=== PATIENT | female | born 1940 | race Caucasian/White ===

== ENCOUNTER 2016-08-09 18:21 | Inpatient (IN) | payer MEDICARE ==
[2016-08-09] MEDS ORDERED: methylPREDNISolone SOD SUCC* 125 MG 2 ML VIAL IV ONE (19:22)
[2016-08-09 19:30] LABS: Hematocrit 35 % (35-47); Hemoglobin 11.9 g/dl (12.0-16.0); Mean Corpuscular HGB Conc 34 g/dl (31-36); Mean Corpuscular Hemoglobin 41 pg (27-31); Mean Platelet Volume 10 um3 (7.4-10.4); Red Blood Count 2.88 10^6/ul (4.0-5.4); Red Cell Distribution Width 16 % (10.5-15); White Blood Count 8.4 10^3/ul (3.5-10.8)
[2016-08-09] MEDS ORDERED: Albuterol 2.5 MG/3 ML NEB.SOL* (0.083%) ONE (19:30)
[2016-08-09 19:31] LABS: Comments Flag Yes; Mean Corpuscular Volume 123 fL (80-97)
[2016-08-09] MEDS: Albuterol 2.5 MG/3 ML NEB.SOL* (0.083%) INH SCH ×2 (19:32→22:01)
[2016-08-09 19:42] LABS: Albumin 4.1 g/dL (3.2-5.2); BUN/Creatinine Ratio 15.2 (8-20); Calcium 9.5 mg/dL (8.6-10.3); EGFR African American 75.9 (>60); Globulin 2.9 g/dL (2-4); Total Bilirubin 0.7 mg/dL (0.2-1.0)
[2016-08-09 19:46] LABS: Troponin I 0.01 ng/mL (<0.04)
--- NOTE | 2016-08-09 20:23 | RAD ---
Indication: Shortness of breath, productive cough. Symptoms duration 3 days. History of COPD on home oxygen. Cardiac disease. Comparison: June 29, 2016 chest radiograph Technique: Upright AP 1957 hours Report: Elevated lung volumes and rarefaction of the upper lung zone markings. Mild patchy alveolar and interstitial consolidation at the RIGHT mid to lower lung zone and at the LEFT lung base suspicious for bronchopneumonia. No focal pulmonary lesion, pleural effusion, pneumothorax. Upper normal heart size accounting for elevated lung volumes. Unremarkable central pulmonary vasculature and mediastinal contours. IMPRESSION: Suggestion of mild bronchopneumonia superimposed on chronic obstructive pulmonary disease and emphysema.
[2016-08-09] MEDS ORDERED: Albuterol/Ipratropium NEB.SOL* Albuterol 2.5 MG/Ipratropium 0.5 MG 3 ML INH ONE (21:07)
[2016-08-09] MEDS ORDERED: cefTRIAXone(*) 1 GM in NS 0.9% 50 ML* 50 ML IVPB ONE (21:31)
[2016-08-09] MEDS ORDERED: DOXYcycline IV* 100 MG in NS 0.9% 250 ML* 250 ML IVPB ONE (21:32)
[2016-08-09] MEDS ORDERED: Docusate CAP* 100 MG PO PRN (22:52)
[2016-08-09] MEDS ORDERED: Albuterol/Ipratropium RESP(NF) MDI (Combivent Respimat) INH PRN (22:52)
[2016-08-09] MEDS ORDERED: Acetaminophen TAB* 325 MG PO PRN ×2 (22:52→22:57)
[2016-08-09] MEDS ORDERED: guaiFENesin ER TAB 600 MG PO PRN (22:52)
[2016-08-09] MEDS ORDERED: IPRATROPIUM BROMIDE NASAL PRN (22:52)
[2016-08-09] MEDS ORDERED: Benzonatate CAP* 100 MG PO PRN (22:57)
[2016-08-10] MEDS: Levofloxacin 500 MG IVPREMIX(* 500 MG/100 ML BAG IVPB SCH ×2 (01:59→22:48)
[2016-08-10] MEDS: methylPREDNISolone SOD SUCC* 40 MG/ML VIAL IV SCH ×3 (06:18→21:47)
[2016-08-10] MEDS: Levothyroxine TAB* 112 MCG TAB PO SCH (06:18)
[2016-08-10] MEDS: Atenolol TAB* 25 MG PO SCH (08:24)
[2016-08-10] MEDS: Aspirin EC Low Dose* 81 MG TAB.EC PO SCH (08:25)
[2016-08-10] MEDS: Cetirizine* 10 MG TAB PO SCH (08:25)
[2016-08-10] MEDS: Ascorbic Acid TAB* 500 MG PO SCH (08:26)
[2016-08-10] MEDS: Lisinopril TAB* 10 MG PO SCH (08:26)
[2016-08-10] MEDS: FLUoxetine CAP* 20 MG PO SCH (08:27)
[2016-08-10] MEDS: Calcium/Vitamin D TAB 250/125* TAB PO SCH (08:27)
[2016-08-10] MEDS: Cholecalciferol TAB* 1000 UNITS PO SCH (08:27)
[2016-08-10] MEDS: Rivaroxaban TAB(*) 20 MG TAB PO SCH (08:28)
[2016-08-10] MEDS: HydroxyUREA CAP* 500 MG CAP PO SCH (08:29)
[2016-08-10] MEDS: IRON POLYSACCHARIDE COMPLEX VI PO SCH (08:30)
[2016-08-10] MEDS: Mometasone/Formoter 200/5 MDI INH SCH ×2 (08:52→19:52)
--- NOTE | 2016-08-10 09:39 | HP ---
HISTORY AND PHYSICAL: DATE OF ADMISSION: 08/09/16 PRIMARY CARE PHYSICIAN: Kim Whitaker MD CHIEF COMPLAINT: Shortness of breath. HISTORY OF PRESENT ILLNESS: The patient is a 76-year-old woman who presents to [facility] with the chief complaint of shortness of breath that started a few days ago actually. She said that last morning she went to breakfast with her confucianist group, and then that evening went to dinner with her son. Then that Sunday night she went to a fish estevez but actually had broiled fish. She thinks that was a lot of activity for her and it tired her out. Each day, she felt a little worse and became increasingly short of breath. She had increased wheezing, increased cough productive of yellow sputum , but no blood in it. She had increased chest tightness. She used her inhalers more frequently, but it did not seem to help. She noticed increased weakness, fatigue, and a decreased appetite. She felt feverish, but that went away. In the ER, the patient was evaluated, found to have increased wheezing, but also likely bilateral pneumonia on chest x-ray. PAST MEDICAL HISTORY: The patient has a past medical history significant for COPD, thrombocytosis, anemia, hypothyroidism, hypertension, dyslipidemia, diverticulosis, history of pulmonary embolism, atrial fibrillation, and history of TIA. PAST SURGICAL HISTORY: Tubal ligation, cataract surgery, and tonsillectomy. MEDICATIONS: Current medications are as follows: 1. Hydroxyurea 1500 mg daily. 2. Symbicort 160/4.5 two puffs twice daily. 3. Ascorbic acid 100 mg daily. 4. Calcium carbonate/Vitamin D one tablet daily. 5. Ipratropium bromide two sprays nasally 3 times a day. 6. Furosemide 20 mg as directed. 7. Guaifenesin 600 mg twice daily. 8. Multivitamin one tablet daily. 9. Iron polysaccharide complex one capsule daily. 10. Vitamin B12 250 mcg every other day. 11. Docusate 200 mg twice daily as needed. 12. Tylenol 650 mg every 4 hours as needed. 13. Combivent one puff inhaled 3 times a day as needed. 14. Atorvastatin 10 mg at bedtime. 15. Fosamax 70 mg weekly. 16. Cholecalciferol 1000 units daily. 17. Omeprazole 30 mg daily. 18. Prednisone 2.5 mg daily. 19. Xarelto 20 mg daily. 20. Singulair 10 mg daily. 21. Anupama 180 mg daily. 22. Atenolol 12.5 mg daily. 23. Aspirin 81 mg daily. 24. Lisinopril 20 mg daily. 25. Fluoxetine 40 mg daily. 26. Synthroid 112 mcg daily. ALLERGIES: She has an allergy/adverse reaction to BIAXIN, AZITHROMYCIN, and NORVASC. FAMILY HISTORY: Mother had a history of ALL. Father had a CVA and coronary artery disease. SOCIAL HISTORY: Ex-tobacco, quit now 20 years ago. No alcohol. No recreational drug use. Surrogate decision maker is her son, Nic. REVIEW OF SYSTEMS: A 14-point review of systems was completed with the patient. All pertinent positives and negatives are in the history of present illness, otherwise it is negative. PHYSICAL EXAMINATION GENERAL: A very pleasant woman lying in bed, in no acute distress. VITAL SIGNS: Blood pressure 140/66, pulse oxygenation 94% on 3 L, heart rate 85 beats per minute, temperature 98.0 degrees. HEENT: Normocephalic, atraumatic. Pupils equal, round, and reactive to light. Moist mucous membranes. NECK: Supple. No JVD, bruits, palpable thyroid, or lymphadenopathy. CHEST: She has got bilateral diffuse wheezing and a very little air movement. CARDIOVASCULAR: S1, S2 appreciated. ABDOMEN: Positive bowel sounds in all 4 quadrants. Soft, nontender, nondistended. No hepatosplenomegaly. EXTREMITIES: No cyanosis, clubbing. +2 peripheral pulses bilaterally. NEURO: Alert and oriented x3. Moves all extremities. SKIN: No rashes or abnormalities. LABORATORY DATA/DIAGNOSTIC STUDIES: White count 8.4, hemoglobin 11.9, hematocrit 35, and platelets 404. Sodium 138, potassium 4.0, chloride 101, CO2 31, BUN 14, creatinine 0.92, glucose 134. Lactic acid 2.4. EKG shows normal sinus rhythm at a rate of 91 beats per minute, normal axis, nonspecific ST-T wave changes. Chest x-ray was interpreted by radiology as suggestion of mild block pneumonia superimposed on chronic obstructive pulmonary disease and emphysema. ASSESSMENT AND PLAN: 1. Pneumonia. Place patient on Levaquin 500 mg IV daily. 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 Tessalon Perles for cough. 2. COPD exacerbation. Solu-Medrol 40 IV q.8 hours. Respiratory-driven protocol. 3. History of PE and atrial fibrillation. Continue Xarelto. Her heart rate seems to be adequately controlled. 4. Hypothyroidism. Stable, continue Synthroid. 5. Dyslipidemia. Stable, continue statin. 6. FEN. Regular diet. 7. DVT prophylaxis. On Xarelto as noted. 8. The patient is a full code. TIME SPENT: Over 75 minutes were spent on this H and P, more than 40 minutes of which were spent in direct [id number] contact and counseling and coordination of care. CC: Kim Whitaker MD* [id number]/CPS #: [id number] MTDOrly
[2016-08-10 15:39] LABS: Urine Bilirubin Negative (Negative); Urine Glucose 1+(50 mg/dL) (Negative); Urine Nitrite Negative (Negative)
--- NOTE | 2016-08-10 16:46 | PN ---
Subjective Date of Service: 08/10/16 Interval History: This is a 76 yo female with COPD requiring 2L NC at baseline who presented with c/o SOB, weakness and fatigue for several days prior to admission. CXR suggested bilateral infiltrates and patient has subsequently been admitted with PNA and COPD exacerbation. She reports feeling much better today. She is still dyspneic returning from the bathroom and coughing occasionally. Afebrile overnight. She offers no new complaints. Objective Active Medications: Acetaminophen (Tylenol Tab*) 650 mg PO Q4H PRN PRN Reason: FEVER/PAIN Albuterol/Ipratropium (Combivent Respimat(Nf)) 1 puff INH TID PRN; Protocol PRN Reason: WHEEZING Ascorbic Acid (Vitamin C Tab*) 500 mg PO DAILY [facility] Last Admin: 08/10/16 08:26 Dose: 500 mg Aspirin (Aspirin Ec Low Dose*) 81 mg PO DAILY [facility] Last Admin: 08/10/16 08:25 Dose: 81 mg Atenolol (Tenormin Tab*) 12.5 mg PO DAILY [facility] Last Admin: 08/10/16 08:24 Dose: 12.5 mg Atorvastatin Calcium (Lipitor*) 10 mg PO BEDTIME [facility] Benzonatate (Tessalon Cap*) 200 mg PO TID PRN PRN Reason: COUGH Calcium/Vitamin D (Oscal D Tab 250/125*) 1 tab PO DAILY [facility] Last Admin: 08/10/16 08:27 Dose: 1 tab Cetirizine HCl (Zyrtec*) 10 mg PO DAILY [facility] PRN Reason: Protocol Last Admin: 08/10/16 08:25 Dose: 10 mg Cholecalciferol (Vitamin D Tab*) 1,000 units PO DAILY [facility] Last Admin: 08/10/16 08:27 Dose: 1,000 units Cyanocobalamin (Vitamin B12 Tab*) 250 mcg PO EVERY OTHER DAY [facility] Docusate Sodium (Colace Cap*) 100 mg PO BID PRN PRN Reason: CONSTIPATION Fluoxetine HCl (Prozac Cap*) 40 mg PO DAILY [facility] Last Admin: 08/10/16 08:27 Dose: 40 mg Guaifenesin (Mucinex*) 600 mg PO BID PRN PRN Reason: COUGH Hydroxyurea (Hydrea Cap*) 1,500 mg PO DAILY [facility] Last Admin: 08/10/16 08:29 Dose: 1,500 mg Levofloxacin/Dextrose (Levaquin 500 Mg Ivpremix(*)) 500 mg in 100 mls @ 100 mls /hr IVPB Q24H [facility] Last Admin: 08/10/16 01:59 Dose: 100 mls/hr Levothyroxine Sodium (Synthroid Tab*) 112 mcg PO 0600 [facility] Last Admin: 08/10/16 06:18 Dose: 112 mcg Lisinopril (Prinivil Tab*) 20 mg PO DAILY [facility] Last Admin: 08/10/16 08:26 Dose: 20 mg Methylprednisolone Sodium Succinate (Solu-Medrol*) 40 mg IV Q8H [facility] Last Admin: 08/10/16 14:23 Dose: 40 mg Mometasone Furoate/Formoterol Fumar (Dulera 200/5 Mdi*) 2 puff INH BID [facility] PRN Reason: Protocol Last Admin: 08/10/16 08:52 Dose: 2 puff Montelukast Sodium (Singulair Tab*) 10 mg PO BEDTIME [facility] Non-Formulary Medication (Ipratropium [place] (Nasal) [Ipratropium [place]]) 2 spray NASAL TID PRN PRN Reason: Allergy Symptoms Pto:(Iron Polysaccharide Complex-Vi [Poly- Iron 150 Forte 150- 25-1 Mg-Mcg-Mg 1 cap PO DAILY [facility] Last Admin: 08/10/16 08:30 Dose: Not Given Omeprazole 30mg 30 admin PO DAILY [facility] Last Admin: 08/10/16 08:30 Dose: Not Given Rivaroxaban (Xarelto (*)) 20 mg PO DAILY [facility] Last Admin: 08/10/16 08:28 Dose: 20 mg Vital Signs: Temp Pulse Resp BP Pulse Ox 97.3 F 79 18 152/78 96 08/10/16 11:05 08/10/16 15:40 08/10/16 15:40 08/10/16 08:19 08/10/16 15:40 Oxygen Devices in Use Now: Nasal Cannula Appearance: Well appearing, in NAD Neck: NL Appearance and Movements; NL JVP Respiratory: Symmetrical Chest Expansion and Respiratory Effort, - - reduced breath sounds diffusely and a few expiratory wheezes in anterior krueger Cardiovascular: RRR Abdominal: NL Sounds; No Tenderness; No Distention Extremities: No Edema Skin: No Rash or Ulcers Neurological: Alert and Oriented x 3 Result Diagrams: 08/09/16 18:50 08/09/16 18:50 Additional Lab and Data: . Assess/Plan/Problems-Billing Assessment: This is a 76 yo female with O2 dependent COPD, h/o PE and prior TIA as well as chronic anemia who presented with c/o SOB and malaise with bilateral infiltrates noted on CXR. - Patient Problems (1) Pneumonia Comment: Cont ceftriaxone and doxycycline Allergy to azithromycin (2) COPD (chronic obstructive pulmonary disease) Comment: With acute exacerbation Cont corticosteriods Will add Spiriva and cont LABA/ICS (3) Chronic respiratory failure Comment: Secondary to COPD O2 and steroid dependent (4) History of pulmonary embolus (PE) Comment: Anticoagulated with Xarelto (5) HTN (hypertension) Comment: Normotensive Cont atenolol (6) Hyperlipidemia Comment: Cont statin (7) Thrombocytosis Comment: Platelets normal at this time Cont hydroxyurea Status and Disposition: Patient requires continued hospital stay. Anticipate possible discharge tomorrow
[2016-08-10] MEDS ORDERED: Spiriva Inhaler DEVICE* 1 EACH DEVICE INH ONE (17:00)
[2016-08-10] MEDS: Tiotropium CAP.INH* CAP.INH/18 MCG INH SCH (19:30)
[2016-08-10] MEDS ORDERED: Atorvastatin* 10 MG TAB PO SCH (21:00)
[2016-08-10] MEDS ORDERED: Montelukast Sodium TAB* 10 MG PO SCH (21:00)
[2016-08-11] MEDS: Levothyroxine TAB* 112 MCG TAB PO SCH (06:03)
[2016-08-11] MEDS: methylPREDNISolone SOD SUCC* 40 MG/ML VIAL IV SCH (06:03)
[2016-08-11] MEDS: Tiotropium CAP.INH* CAP.INH/18 MCG INH SCH (08:41)
[2016-08-11] MEDS: Mometasone/Formoter 200/5 MDI INH SCH (08:42)
[2016-08-11] MEDS ORDERED: Cyanocobalamin TAB* 500 MCG PO SCH (09:00)
[2016-08-11] MEDS: FLUoxetine CAP* 20 MG PO SCH (09:07)
[2016-08-11] MEDS: Cholecalciferol TAB* 1000 UNITS PO SCH (09:07)
[2016-08-11] MEDS: Lisinopril TAB* 10 MG PO SCH (09:07)
[2016-08-11] MEDS: Rivaroxaban TAB(*) 20 MG TAB PO SCH (09:08)
[2016-08-11] MEDS: Cetirizine* 10 MG TAB PO SCH (09:08)
[2016-08-11] MEDS: Atenolol TAB* 25 MG PO SCH (09:08)
[2016-08-11] MEDS: Calcium/Vitamin D TAB 250/125* TAB PO SCH (09:08)
[2016-08-11] MEDS: IRON POLYSACCHARIDE COMPLEX VI PO SCH (09:09)
[2016-08-11] MEDS: HydroxyUREA CAP* 500 MG CAP PO SCH (09:09)
[2016-08-11] MEDS: Aspirin EC Low Dose* 81 MG TAB.EC PO SCH (09:09)
[2016-08-11] MEDS: Ascorbic Acid TAB* 500 MG PO SCH (09:09)
[2016-08-11 09:55] VITALS: BP 150/67
--- NOTE | 2016-08-11 21:37 | DS ---
DISCHARGE SUMMARY: DATE OF ADMISSION: 08/09/16 DATE OF DISCHARGE: 08/11/16 PRIMARY CARE PROVIDER: Kim Whitaker MD. DISCHARGING PROVIDER: MARRY Bergeron SUPERVISING PHYSICIAN: Santhosh Roberts MD.* (DICTATED BY MARRY BERGERON) PRIMARY DISCHARGE DIAGNOSES: 1. Community-acquired pneumonia. 2. Chronic obstructive pulmonary disease exacerbation. SECONDARY DISCHARGE DIAGNOSES: 1. Chronic respiratory failure secondary to chronic obstructive pulmonary disease - followed by Dr. Singh and is oxygen and steroid dependent. 2. History of pulmonary embolus, chronically anticoagulated with Xarelto. 3. Hypertension. 4. Hyperlipidemia. 5. Thrombocytosis, maintained on hydroxyurea. DISCHARGE MEDICATIONS: 1. Guaifenesin 600 mg p.o. b.i.d. as needed for cough. 2. Combivent 1 puff inhaled 3 times daily as needed. 3. Fosamax 70 mg p.o. weekly. 4. Vitamin C 500 mg p.o. daily. 5. Aspirin 81 mg p.o. daily. 6. Atenolol 12.5 mg p.o. daily. 7. Atorvastatin 10 mg p.o. at bedtime. 8. Symbicort 160/4.5 two puffs inhaled twice daily. 9. Calcium and vitamin D tablet 1 tablet p.o. daily. 10. Vitamin D3, 1000 units p.o. daily. 11. Vitamin B12, 250 mcg p.o. every other day. 12. Docusate 100 to 200 mg p.o. b.i.d. as needed for constipation. 13. Prozac 40 mg p.o. daily. 14. Fexofenadine 180 mg p.o. daily. 15. Lasix 20 mg p.o. Sunday, Sunday, Sunday. 16. Hydroxyurea 1500 mg p.o. daily. 17. Ipratropium nasal spray 0.03% 2 sprays in each nostril 3 times daily as needed. 18. Iron and polysaccharide complex 1 capsule p.o. daily. 19. Levaquin 500 mg p.o. daily x7 days. 20. Levothyroxine 112 mcg p.o. daily. 21. Lisinopril 20 mg p.o. daily. 22. Singulair 10 mg p.o. at bedtime. 23. Multivitamin 1 tablet p.o. daily. 24. Omeprazole 30 mg p.o. daily. 25. Xarelto 20 mg p.o. daily. 26. Spiriva 1 capsule inhaled daily. 27. Prednisone at a tapering dose with instructions to take 40 mg x3 days, followed by 20 mg x3 days, followed by 10 mg x3 days, followed by 5 mg x3 days and then to resume her typical dose of 2.5 mg daily. Medication changes: 1. Start Spiriva. 2. Levaquin x7 days. 3. Prednisone in a tapering dose as described above and then to resume her typical daily dose of 2.5 mg. HOSPITAL IMAGIN. Chest x-ray, 08/09/16, shows mild bronchopneumonia superimposed on COPD and emphysema in both lung bases. 2. EKG, 08/09/16, shows a sinus rhythm with no acute ischemic changes. HOSPITAL COURSE: This is a 76-year-old female with chronic respiratory failure secondary to COPD who is both steroid and oxygen dependent at baseline, who presented to the emergency department with complaints of shortness of breath for the last several days. The patient complained of associated weakness and fatigue. She had been afebrile at home. She had a productive cough. At the time of admission, initial labs were rather unremarkable. CBC was within normal limits. Comprehensive metabolic panel was unremarkable. Lactic acid was mildly elevated at 2.4. Initial troponin was negative and her urinalysis was unremarkable. Chest x- ray demonstrated bilateral infiltrate and the patient was subsequently admitted with pneumonia and COPD exacerbation. Baseline oxygen requirements are 2 L at rest and 3 L at activity. The patient did require additional supplemental oxygen at the time of admission, but at discharge has returned to her baseline requirements. The patient was treated with Levaquin as well as corticosteroids and noted significant improvement in her respiratory symptoms. Spiriva was also initiated during her hospital stay. At home, she was treated with Symbicort and p.r.n. Combivent. DISPOSITION: The patient is being discharged to home. Medication changes as outlined above. She requires Levaquin for an additional 7 days as well as slow prednisone taper as described above. Spiriva has been added as an additional maintenance inhaler for her. She has scheduled followup with Dr. Singh, her pumper hand for next month, which she is encouraged to keep and will require followup with her primary care provider next week in regards to this hospitalization. MARRY BERGERON CC: Kim Whitaker MD; Dr. Singh* [id number]/CPS #: [id number] MTDD
== END 2016-08-11 11:15 | disposition home or self-care (01) | DRG 190 ==
LOC: ED 18:21 → MED 23:10
PROVIDERS: ADMIT Internal Medicine; ATTEND Hospitalist
DX: J44.1 Chronic obstructive pulmonary disease with (acute) exacerbation (principal); J18.9 Pneumonia, unspecified organism; J96.10 Chronic respiratory failure, unspecified whether with hypoxia or hypercapnia; I48.91 Unspecified atrial fibrillation; Z99.81 Dependence on supplemental oxygen; I10 Essential (primary) hypertension; E78.5 Hyperlipidemia, unspecified; E03.9 Hypothyroidism, unspecified; D47.3 Essential (hemorrhagic) thrombocythemia; Z86.711 Personal history of pulmonary embolism; Z79.01 Long term (current) use of anticoagulants; Z79.1 Long term (current) use of non-steroidal anti-inflammatories (NSAID); Z79.891 Long term (current) use of opiate analgesic; Z79.52 Long term (current) use of systemic steroids; Z79.899 Other long term (current) drug therapy; Z79.82 Long term (current) use of aspirin; Z88.1 Allergy status to other antibiotic agents; Z91.09 Other allergy status, other than to drugs and biological substances; Z87.891 Personal history of nicotine dependence; Z86.73 Personal history of transient ischemic attack (TIA), and cerebral infarction without residual deficits
CPT/HCPCS: 36415; 71010; 80053; 81003; 83605; 84484; 85025; 87040; 87070; 87077; 87185; 87186; 87205; 87899; 93005; 94640; 94760; A9270-GY; J0696; J1956; J2920; J2930

== ENCOUNTER 2016-11-20 18:16 | Inpatient (IN) | payer MEDICARE ==
[2016-11-20] MEDS ORDERED: Albuterol/Ipratropium NEB.SOL* Albuterol 2.5 MG/Ipratropium 0.5 MG 3 ML INH ONE (18:31)
[2016-11-20] MEDS ORDERED: methylPREDNISolone 125 MG* 2 ML VIAL IV ONE (18:31)
[2016-11-20] MEDS ORDERED: NS 0.9% 1000 ML* 1,000 ML IV ONE (18:31)
[2016-11-20 18:58] LABS: Hematocrit 31 % (35-47); Hemoglobin 10.1 g/dl (12.0-16.0); Mean Corpuscular HGB Conc 33 g/dl (31-36); Mean Corpuscular Hemoglobin 42 pg (27-31); Mean Platelet Volume 9 um3 (7.4-10.4); Red Blood Count 2.45 10^6/ul (4.0-5.4); Red Cell Distribution Width 17 % (10.5-15); White Blood Count 8.1 10^3/ul (3.5-10.8)
[2016-11-20 18:59] LABS: Add Diff/Slide Review? Slide Review Added; Comments Flag Yes; Mean Corpuscular Volume 126 fL (80-97)
--- NOTE | 2016-11-20 19:08 | RAD ---
HISTORY: Shortness of breath, cough, pneumonia COMPARISONS: None VIEWS: 4: Frontal dual-energy and lateral views of the chest. FINDINGS: CARDIOMEDIASTINAL SILHOUETTE: The cardiomediastinal silhouette is normal. PRETTY: The pretty are normal. PLEURA: The costophrenic angles are sharp. No pleural abnormalities are noted. LUNG PARENCHYMA: There is hyperinflation with flattening of the diaphragm and expansion of the AP diameter of the chest. ABDOMEN: The upper abdomen is clear. There is no subphrenic gas. BONES AND SOFT TISSUES: No bone or soft tissue abnormalities are noted. OTHER: None. IMPRESSION: HYPERINFLATION, CONSISTENT WITH COPD. NO ACTIVE CARDIOPULMONARY DISEASE.
[2016-11-20 19:10] LABS: PCO2 Arterial 43 mmHg (35-45)
--- NOTE | 2016-11-20 19:17 | ED ---
Jordan Bates Soohyun, scribed for Kaz Quintanilla MD on 11/20/16 at 1839 . Progress - Progress Note Progress Note: This 76 y/o female presents to ED for 24 hours old SOB. Positive KAPLAN, orthopnea , and bilat ankle swelling. Pt is oxygen dependent at home. PMHx includes COPD, afib, asthma, and PE. Physical Exam - Summary Physical Exam Summary: Neck is supple with full range of motion and non-tender. There are no carotid bruits. There is no neck vein distension. Respiratory: Chest is non-tender. Decreased breath sound bilat. Cardiovascular: Heart is regular rate and rhythm. There is no murmur or rub auscultated. There is peripheral edema and pulses are symmetrical and equal. Triage Information Reviewed: Yes Vital Signs On Initial Exam: Initial Vitals BP 157/57 11/20/16 18:21 Vital Signs Reviewed: Yes Course/Dx - Diagnoses Provider Diagnoses: Dyspnea The documentation as recorded by the igoribJordan mcneal Soohyun accurately reflects the service I personally performed and the decisions made by , Kaz Quintanilla MD.
[2016-11-20 19:26] LABS: Macrocytosis 3+; Stomatocytes 1+
[2016-11-20 19:49] LABS: ALT 9 U/L (7-52); Albumin 3.6 g/dL (3.2-5.2); Alkaline Phosphatase 46 U/L (34-104); BUN/Creatinine Ratio 10.3 (8-20); Blood Urea Nitrogen 10 mg/dL (6-24); CO2 Carbon Dioxide 28 mmol/L (22-32); Calcium 9.4 mg/dL (8.6-10.3); Chloride 98 mmol/L (101-111); EGFR African American 71.4 (>60); EGFR Non-African American 55.5 (>60); Globulin 3.3 g/dL (2-4); Glucose 85 mg/dL (70-100); Sodium 135 mmol/L (133-145); Total Protein 6.9 g/dL (6.4-8.9)
[2016-11-20 19:52] LABS: Anion Gap 9 mmol/L (2-11)
[2016-11-20] MEDS ORDERED: Levofloxacin 750 MG IVPREMIX(* 750 MG/150 ML BAG IVPB ONE (20:16)
[2016-11-20] MEDS ORDERED: Potassium Chlor TAB* 20 MEQ TAB.ER PO ONE (21:05)
[2016-11-20 21:13] LABS: Magnesium 1.3 mg/dL (1.9-2.7)
[2016-11-20] MEDS ORDERED: Magnesium Sulfate 2 GM IV* 2 GM/50 ML BAG IVPB ONE (21:19)
--- NOTE | 2016-11-20 21:25 | ED ---
Pardeep Bates Benjamin, scribed for Eliane Kaufman MD on 11/20/16 at 2017 . Shortness of Breath - HPI Summary HPI Summary: 76yo female brought in via EMS from mild SOB that started since yesterday. Pt had cold like symptoms: cough and sneezing since . Pt denies any CP but reports some spasms on her left chest when coughing. Denies leg cramping. Pt was admitted for COPD at [facility] 1 month ago for SOB and diaphoresis. After negative echo and stress test, pt was r/oed CO and CVA. Pt also states that she is under a lot of stress lately as she recently experienced a family . Pt has Hx of PE. Pt states that her symptoms now feels like COPD exacerbation. On low dose prednisone and Xeralto. - History of Current Complaint Chief Complaint: EDShortnessOfBreath Time Seen by Provider: 11/20/16 19:16 Hx Obtained From: Patient Onset/Duration: Gradual Onset, Lasting Days - 1 day ago, Still Present Timing: Constant Current Severity: Mild Dyspnea At: Rest Aggrevating Factors: Nothing Alleviating Factors: Nothing Associated Signs & Symptoms: Cough (Nonproductive) - Allergy/Home Medications Allergies/Adverse Reactions: Allergies Allergy/AdvReac Type Severity Reaction Status Date / Time Clarithromycin [From Biaxin] Allergy Intermediate Hives Verified 11/20/16 18:54 Azithromycin [From Zithromax] Allergy Mild Diarrhea Verified 11/20/16 18:54 Amlodipine [From Norvasc] AdvReac Severe See Comment Verified 11/20/16 18:54 Home Medications: Home Medications Albuterol 2.5MG/3ML (0.083%)* [Ventolin 2.5 MG/3 ML NEB.GAVIN*] 2.5 mg INH Q6H PRN 11/20/16 [History Confirmed 11/20/16] Albuterol Sulfate [Proair Respiclick] 2 puff INH Q4HR PRN 11/20/16 [History Confirmed 11/20/16] Cholecalciferol TAB* [Vitamin D TAB*] 2,000 units PO EVERY OTHER DAY 11/20/16 [ History Confirmed 11/20/16] Cyanocobalamin TAB* [Vitamin B12 TAB*] 250 mcg PO EVERY OTHER DAY 11/20/16 [ History Confirmed 11/20/16] Docusate CAP* [Colace Cap*] 100 - 200 mg PO BID PRN 11/20/16 [History Confirmed 11/20/16] Fluticasone NASAL SPRAY 50MCG* [Flonase NASAL SPRAY 50MCG*] 2 spray BOTH NARES DAILY 11/20/16 [History Confirmed 11/20/16] Ipratropium 0.5MG/2.5ML NEB* [Atrovent 0.5 MG NEB.GAVIN*] 0.5 mg INH TID PRN 11/20 [History Confirmed 11/20/16] Iron Polysaccharide Complex- [Poly-Iron 150 Forte] 1 cap PO DAILY 11/20/16 [ History Confirmed 11/20/16] LORazepam TAB(*) [Ativan 0.5 MG TAB (*)] 0.25 - 0.5 mg PO BEDTIME PRN 11/20/16 [ History Confirmed 11/20/16] Lisinopril [Lisinopril 40 MG-] 40 mg PO DAILY 11/20/16 [History Confirmed ] Magnesium Oxide TAB* [MagOx 400 TAB*] 400 mg PO DAILY 11/20/16 [History Confirmed 11/20/16] Multivitamins/Minerals TAB* [Theragran/minerals TAB*] 1 tab PO DAILY 11/20/16 [ History Confirmed 11/20/16] Polyethylene Glycol-Propylene [Systane Ultra 0.4-0.3 %] 1 gavin BOTH EYES .BID- QID PRN 11/20/16 [History Confirmed 11/20/16] Rivaroxaban TAB(*) [Xarelto 20 mg] 20 mg PO DAILY 11/20/16 [History Confirmed ] Tiotropium CAP.INH* [Spiriva CAP.INH*] 1 cap INH DAILY PRN 11/20/16 [History Confirmed 11/20/16] guaiFENesin LIQ* [Robitussin*] 10 ml PO QID PRN 11/20/16 [History Confirmed ] predniSONE TAB* [Deltasone TAB*] 2.5 mg PO DAILY 11/20/16 [History Confirmed ] PMH/Surg Hx/FS Hx/Imm Hx Endocrine/Hematology History: Reports: Hx Anticoagulant Therapy - coumadin, Hx Blood Disorders, Hx Thyroid Disease - HYPOTHYROIDISM, Hx Anemia - PERNICIOUS ANEMIA, Other Endocrine/Hematological Disorders - 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 Denies: Hx Blood Transfusions, Hx Bone Marrow Disease, Hx Diabetes, Hx Systemic Lupus Erythematosus, Hx Unexplained Bleeding Cardiovascular History: Reports: Hx Hypercholesterolemia, Hx Hypertension, Other Cardiovascular Problems/Disorders - A FIB Denies: Hx Pacemaker/ICD Respiratory History: Reports: Hx Asthma, Hx Chronic Bronchitis, Hx Chronic Obstructive Pulmonary Disease (COPD) - ON HOME O2, Hx Pneumonia, Hx Pulmonary Embolism, Other Respiratory Problems/Disorders - PT STATES SHE HAS A HX OF A BLOOD CLOT GI History: Reports: Hx Gastroesophageal Reflux Disease, Other GI Disorders - gastroenteritis History: Denies: Hx Dialysis, Hx Renal Disease Musculoskeletal History: Reports: Hx Arthritis - OA, Other Musculoskeletal History - osteo-arthritis Sensory History: Reports: Hx Contacts or Glasses Denies: Hx Cataracts - bilaterally removed, Hx Hearing Aid Opthamlomology History: Reports: Hx Contacts or Glasses Denies: Hx Cataracts - bilaterally removed Neurological History: Denies: Hx Dementia, Hx Seizures Psychiatric History: Reports: Hx Depression, Other Psychiatric Issues/Disorders - takes prozac to deter from smoking Denies: Hx Panic Disorder, Hx Substance Abuse - Cancer History Cancer Type, Location and Year: arthritis Hx Chemotherapy: No Hx Radiation Therapy: No - Surgical History Surgery Procedure, Year, and Place: Tubal ligation, pt states 31 years ago. Oral surgery, pt states when she was a teenager. CATARACT SURGERY Hx Anesthesia Reactions: No - difficulty reversing or "waking up." - Immunization History Date of Tetanus Vaccine: Unk Date of Influenza Vaccine: Fall 2013 Infectious Disease History: No Infectious Disease History: Denies: Hx Clostridium Difficile, Hx Hepatitis, Hx Human Immunodeficiency Virus (HIV), Hx Shingles, Hx Tuberculosis, Traveled Outside the [place] in Last 30 Days - Family History Known Family History: Positive: Cardiac Disease, Hypertension, Diabetes - Social History Occupation: Retired Lives: Alone Alcohol Use: None Substance Use Type: Reports: None Smoking Status (MU): Former Smoker Type: Cigarettes Have You Smoked in the Last Year: No Review of Systems Constitutional: Negative Negative: Fever Eyes: Negative ENT: Negative Negative: Chest Pain Positive: Shortness Of Breath, Cough Gastrointestinal: Negative Negative: Abdominal Pain Genitourinary: Negative Musculoskeletal: Negative Skin: Negative Neurological: Negative Psychological: Normal All Other Systems Reviewed And Are Negative: Yes Physical Exam - Summary Physical Exam Summary: Neck is supple with full range of motion and non-tender. There are no carotid bruits. There is no neck vein distension. Respiratory: Chest is non-tender. Decreased breath sound bilat. Cardiovascular: Heart is regular rate and rhythm. There is no murmur or rub auscultated. There is peripheral edema and pulses are symmetrical and equal. Triage Information Reviewed: Yes Vital Signs On Initial Exam: Initial Vitals BP 157/57 11/20/16 18:21 Vital Signs Reviewed: Yes Appearance: Positive: Well-Appearing, No Pain Distress Skin: Positive: Warm, Skin Color Reflects Adequate Perfusion, Dry Head/Face: Positive: Normal Head/Face Inspection Eyes: Positive: EOMI, MARIO ENT: Positive: Pharynx normal, TMs normal Neck: Positive: Supple, Nontender Respiratory/Lung Sounds: Positive: Clear to Auscultation, Breath Sounds Present , Wheezes - expiratory, Other - tachypnic Cardiovascular: Positive: RRR. Negative: Murmur Abdomen Description: Positive: Nontender, Soft. Negative: No Organomegaly, Distended, Guarding Bowel Sounds: Positive: Present Musculoskeletal: Positive: Strength/ROM Intact Neurological: Positive: Sensory/Motor Intact, Alert, Oriented to Person Place, Time, CN Intact II-III Psychiatric: Positive: Affect/Mood Appropriate - [place] Coma Scale Coma Scale Total: 15 Diagnostics - Vital Signs Vital Signs Temp Pulse Resp BP Pulse Ox 11/20/16 19:07 66 16 156/53 100 11/20/16 19:05 98 F 65 16 157/57 100 11/20/16 19:02 67 17 98 11/20/16 18:30 67 17 96 11/20/16 18:23 15 11/20/16 18:21 157/57 - Laboratory Lab Results: Lab Results 11/20/16 11/20/16 11/20/16 Range/Units 18:40 18:40 18:40 WBC 8.1 (3.5-10.8) 10^3/ul RBC 2.45 L (4.0-5.4) 10^6/ul Hgb 10.1 L (12.0-16.0) g/dl Hct 31 L (35-47) % MCV 126 H (80-97) fL MCH 42 H (27-31) pg MCHC 33 (31-36) g/dl RDW 17 H (10.5-15) % Plt Count 602 H (150-450) 10^3/ul MPV 9 (7.4-10.4) um3 Neut % (Auto) 38.6 (38-83) % Lymph % (Auto) 54.2 H (25-47) % Bertie % (Auto) 5.8 (1-9) % Eos % (Auto) 0.4 (0-6) % Baso % (Auto) 1.0 (0-2) % Absolute Neuts (auto) 3.1 (1.5-7.7) 10^3/ul Absolute Lymphs (auto) 4.4 (1.0-4.8) 10^3/ul Absolute Monos (auto) 0.5 (0-0.8) 10^3/ul Absolute Eos (auto) 0 (0-0.6) 10^3/ul Absolute Basos (auto) 0.1 (0-0.2) 10^3/ul Absolute Nucleated RBC 0.01 10^3/ul Nucleated RBC % 0.1 Normal RBC Morphology Not Reportable Macrocytosis 3+ Stomatocytes 1+ INR (Anticoag Therapy) (0.89-1.11) Patient Temperature ABG pH (7.35-7.45) ABG pCO2 (35-45) mmHg ABG pO2 (80-100) mmHg ABG HCO3 (19-31) mmol/L ABG O2 Saturation (95-98) % ABG Base Excess (-2.0-2.0) Respiration Rate O2 Delivery Device Ventilator Type Vent Mode FiO2 Inspiratory Time PEEP Pressure Support Pressure Control EPAP IPAP BiPAP Sodium 135 (133-145) mmol/L Potassium TNP Chloride 98 L (101-111) mmol/L Carbon Dioxide 28 (22-32) mmol/L Anion Gap 9 (2-11) mmol/L BUN 10 (6-24) mg/dL Creatinine 0.97 H (0.51-0.95) mg/dL Est GFR ( Amer) 71.4 (>60) Est GFR (Non-Af Amer) 55.5 (>60) BUN/Creatinine Ratio 10.3 (8-20) Glucose 85 (70-100) mg/dL Lactic Acid 1.2 (0.5-2.0) mmol/L Calcium 9.4 (8.6-10.3) mg/dL Total Bilirubin 0.50 (0.2-1.0) mg/dL AST TNP ALT 9 (7-52) U/L Alkaline Phosphatase 46 (34-104) U/L Troponin I 0.00 (<0.04) ng/mL B-Natriuretic Peptide ( - 100) pg/mL Total Protein 6.9 (6.4-8.9) g/dL Albumin 3.6 (3.2-5.2) g/dL Globulin 3.3 (2-4) g/dL Albumin/Globulin Ratio 1.1 (1-3) 11/20/16 11/20/16 11/20/16 Range/Units 18:40 18:40 19:00 WBC (3.5-10.8) 10^3/ul RBC (4.0-5.4) 10^6/ul Hgb (12.0-16.0) g/dl Hct (35-47) % MCV (80-97) fL MCH (27-31) pg MCHC (31-36) g/dl RDW (10.5-15) % Plt Count (150-450) 10^3/ul MPV (7.4-10.4) um3 Neut % (Auto) (38-83) % Lymph % (Auto) (25-47) % Bertie % (Auto) (1-9) % Eos % (Auto) (0-6) % Baso % (Auto) (0-2) % Absolute Neuts (auto) (1.5-7.7) 10^3/ul Absolute Lymphs (auto) (1.0-4.8) 10^3/ul Absolute Monos (auto) (0-0.8) 10^3/ul Absolute Eos (auto) (0-0.6) 10^3/ul Absolute Basos (auto) (0-0.2) 10^3/ul Absolute Nucleated RBC 10^3/ul Nucleated RBC % Normal RBC Morphology Macrocytosis Stomatocytes INR (Anticoag Therapy) 1.14 H (0.89-1.11) Patient Temperature Not Reportable ABG pH 7.46 H (7.35-7.45) ABG pCO2 43 (35-45) mmHg ABG pO2 68 L (80-100) mmHg ABG HCO3 29.6 (19-31) mmol/L ABG O2 Saturation 96.7 (95-98) % ABG Base Excess 6.1 H (-2.0-2.0) Respiration Rate Not Reportable O2 Delivery Device Nc Ventilator Type Not Reportable Vent Mode Not Reportable FiO2 Not Reportable Inspiratory Time Not Reportable PEEP Not Reportable Pressure Support Not Reportable Pressure Control Not Reportable EPAP Not Reportable IPAP Not Reportable BiPAP Not Reportable Sodium (133-145) mmol/L Potassium Chloride (101-111) mmol/L Carbon Dioxide (22-32) mmol/L Anion Gap (2-11) mmol/L BUN (6-24) mg/dL Creatinine (0.51-0.95) mg/dL Est GFR ( Amer) (>60) Est GFR (Non-Af Amer) (>60) BUN/Creatinine Ratio (8-20) Glucose (70-100) mg/dL Lactic Acid (0.5-2.0) mmol/L Calcium (8.6-10.3) mg/dL Total Bilirubin (0.2-1.0) mg/dL AST ALT (7-52) U/L Alkaline Phosphatase (34-104) U/L Troponin I (<0.04) ng/mL B-Natriuretic Peptide 32 ( - 100) pg/mL Total Protein (6.4-8.9) g/dL Albumin (3.2-5.2) g/dL Globulin (2-4) g/dL Albumin/Globulin Ratio (1-3) Result Diagrams: 11/20/16 18:40 11/20/16 20:18 Lab Statement: Any lab studies that have been ordered have been reviewed, and results considered in the medical decision making process. - Radiology CXR Xray Interpretation: No Acute Changes - IMPRESSION: HYPERINFLATION, CONSISTENT WITH COPD. NO ACTIVE CARDIOPULMONARY DISEASE. Radiology Interpretation Completed By: Radiologist - EKG 1830. Cardiac Rate: NL - 71bpm EKG Rhythm: Sinus Rhythm - normal sinus rhythm ST Segment: Normal - no ST elevation Ectopy: PACs EKG Interpretation: No Q waves, no ST elevations. EKG Comparison: No Significant Change - same as previous EKG taken at 08/09/16 Re-Evaluation - Re-Evaluation First Eval Re-Evaluation Time: 20:15 - Discussed with pt the idea of doing a CTA vs d- dimer. Pt prefers to do d-dimer first since it feels closer to COPD exacerbation and since she is already on xeralto. Course/Dx - Course Course Of Treatment: 76 yo female with copd, afib, high platelets and a history of PE, on anticoagulation, with sob. Dicussed doing CTA vs. ddimer with family and ddimer was done and was neg, pt treated for copd exac feeling better in the dept but unable to ambulate o2 sats of 87% on her normal 2l so case discussed with Dr. Talbot. her hg is 10, normally 11 but she denies any dark tarry stools, she is remarkably hypokalemic and magnesemic and this may be adding to her weakness these are being repleted. - Diagnoses Provider Diagnoses: Dyspnea - Physician Notifications Discussed Care of Patient With: Humberto Talbot Time Discussed With Above Provider: 21:00 Discharge - Discharge Plan Condition: Stable Disposition: ADMITTED TO [facility] Referrals: Kim Whitaker MD [Primary Care Provider] - The documentation as recorded by the Pardeep mcclain Benjamin accurately reflects the service I personally performed and the decisions made by me, Eliane Kaufman MD.
--- NOTE | 2016-11-20 21:33 | HP ---
H&P (Free Text) History and Physical: PCP: Andrzej Elliott MD Date/Time of Evaluation: 11/20/2016 CC: SOB HPI: Mrs Keita is a 76YO female HX COPD for which she was last admitted in August 2016. She began getting SOB which gradually progressed and prevented her from going to caodaism on Sunday. She was seen by her PCP Sunday afternoon and referred to [facility] ED as it was felt she was too ill to be adequately managed in the office. In fact in the ED she appeared comfortable, but after nebulizations and IV methylprednisolone, her saO2 dropped into the mid -80s with heart rate escalating into the 130s with ambulation prompting this admission. Sputum is clear to whitish. She has had some subjective chills, but no fevers, sweats, chest pain, N/V, change in bowel/bladder, or other issue. Of note, she relates being under increased stress over the past month due to her 35YO son passing away due to post-operative complications of a total colectomy performed at [facility] for severe ulcerative colitis. PMedHx COPD pulmonary embolism AFIB TIA HTN HLD anemia thrombocytosis hypothyroidism Ambulatory Orders Nursing to reconcile. Atenolol TAB* [Tenormin TAB* 25 MG] 12.5 mg PO DAILY 05/14/12 Atorvastatin* [Lipitor 10 MG*] 10 mg PO BEDTIME 05/14/12 FLUoxetine CAP* [Prozac CAP*] 40 mg PO DAILY 05/14/12 Montelukast Sodium TAB* [Singulair 10 MG TAB*] 10 mg PO BEDTIME 05/14/12 Omeprazole CAP* [Prilosec CAP* 20 MG] 20 mg PO DAILY 05/14/12 Alendronate (NF) [Fosamax (NF)] 70 mg PO WEEKLY 09/07/14 Levothyroxine TAB* [Synthorid 112 MCG TAB*] 112 mcg PO DAILY 09/07/14 Albuterol/Ipratropium RESP(NF) [Combivent Respimat (NF)] 1 puff INH TID PRN Budesonide/Formote 160/4.5(NF) [Symbicort 160/4.5 (NF)] 2 puff INH BID 08/09/16 Calcium Carbonate-Vitamin D [Calcium + D3 600-200 mg-Unit] 1 tab PO DAILY Fexofenadine HCl [Allergy 24-Hr] 180 mg PO DAILY 08/09/16 Furosemide TAB* [Lasix TAB*] 20 mg PO MOWEFR 08/09/16 HydroxyUREA CAP* [Hydrea CAP*] 1,500 mg PO DAILY 08/09/16 Ipratropium [place] (Nasal) [Ipratropium [place]] 2 spray NASAL TID PRN Albuterol 2.5MG/3ML (0.083%)* [Ventolin 2.5 MG/3 ML NEB.GAVIN*] 2.5 mg INH Q6H PRN 11/20/16 Albuterol Sulfate [Proair Respiclick] 2 puff INH Q4HR PRN 11/20/16 Cholecalciferol TAB* [Vitamin D TAB*] 2,000 units PO EVERY OTHER DAY 11/20/16 Cyanocobalamin TAB* [Vitamin B12 TAB*] 250 mcg PO EVERY OTHER DAY 11/20/16 Docusate CAP* [Colace Cap*] 100 - 200 mg PO BID PRN 11/20/16 Fluticasone NASAL SPRAY 50MCG* [Flonase NASAL SPRAY 50MCG*] 2 spray BOTH NARES DAILY 11/20/16 Ipratropium 0.5MG/2.5ML NEB* [Atrovent 0.5 MG NEB.GAVIN*] 0.5 mg INH TID PRN 11/20 Iron Polysaccharide Complex- [Poly-Iron 150 Forte] 1 cap PO DAILY 11/20/16 LORazepam TAB(*) [Ativan 0.5 MG TAB (*)] 0.25 - 0.5 mg PO BEDTIME PRN 11/20/16 Lisinopril [Lisinopril 40 MG-] 40 mg PO DAILY 11/20/16 Magnesium Oxide TAB* [MagOx 400 TAB*] 400 mg PO DAILY 11/20/16 Multivitamins/Minerals TAB* [Theragran/minerals TAB*] 1 tab PO DAILY 11/20/16 Polyethylene Glycol-Propylene [Systane Ultra 0.4-0.3 %] 1 gavin BOTH EYES .BID- QID PRN 11/20/16 Rivaroxaban TAB(*) [Xarelto 20 mg] 20 mg PO DAILY 11/20/16 Tiotropium CAP.INH* [Spiriva CAP.INH*] 1 cap INH DAILY PRN 11/20/16 guaiFENesin LIQ* [Robitussin*] 10 ml PO QID PRN 11/20/16 predniSONE TAB* [Deltasone TAB*] 2.5 mg PO DAILY 11/20/16 Allergies Clarithromycin [From Biaxin] Allergy (Intermediate, Verified 11/20/16 18:54) Hives Azithromycin [From Zithromax] Allergy (Mild, Verified 11/20/16 18:54) Diarrhea Amlodipine [From Norvasc] Adverse Reaction (Severe, Verified 11/20/16 18:54) See Comment elevated liver enzymes PSurgHx cataract extraction tonsillectomy tubal ligation SocHx: quit smoking ~20years ago w/ , denies alcohol & recreational drugs; , lives alone; full code status FamHx: Mother: ALL; Father: CVA & CAD ROS: as above, otherwise reviewed and all were negative Constitutional: NAD, normally developed, overweight elderly white female vitals: Vital Signs Temp 36.6 C 11/20/16 19:05 Pulse 93 11/20/16 21:30 Resp 20 11/20/16 21:30 BP 137/48 11/20/16 21:30 Pulse Ox 95 11/20/16 21:30 Intake & Output 11/19/16 11/20/16 11/20/16 23:59 11:59 23:59 Weight 77.111 kg HEENM: atraumatic; sclera/conjunctiva: non-icteric/clear; hearing: clinically intact; oropharynx: clear, mucosa moist Neck: soft tissue: non-tender; thyroid: normal Pulmonary: diminished B w/o audible wheeze or rhonchi, fair aeration, no accessory muscle use CV: RR/RR, normal S1S2, no carotid bruit, no jugular venous distention, 2+ B DP/ PT, no edema Abdominal: soft, non-distended, non-tender, no rebound/guarding/rigidity, normoactive bowel sounds, no hepatosplenomegaly or masses, no costovertebral angle tenderness Musculoskeletal: general: grossly intact; gait: stable Integumental: normal appearance and texture of exposed skin Psychiatric orientation: AA&O to PPS affect: calm mood: pleasant eye contact: good content: reliable responses: timely insight: good Testing: Lab Results 11/20/16 11/20/16 11/20/16 Range/Units 18:40 18:40 18:40 WBC 8.1 (3.5-10.8) 10^3/ul RBC 2.45 L (4.0-5.4) 10^6/ul Hgb 10.1 L (12.0-16.0) g/dl Hct 31 L (35-47) % MCV 126 H (80-97) fL MCH 42 H (27-31) pg MCHC 33 (31-36) g/dl RDW 17 H (10.5-15) % Plt Count 602 H (150-450) 10^3/ul MPV 9 (7.4-10.4) um3 Neut % (Auto) 38.6 (38-83) % Lymph % (Auto) 54.2 H (25-47) % [place] % (Auto) 5.8 (1-9) % Eos % (Auto) 0.4 (0-6) % Baso % (Auto) 1.0 (0-2) % Absolute Neuts (auto) 3.1 (1.5-7.7) 10^3/ul Absolute Lymphs (auto) 4.4 (1.0-4.8) 10^3/ul Absolute Monos (auto) 0.5 (0-0.8) 10^3/ul Absolute Eos (auto) 0 (0-0.6) 10^3/ul Absolute Basos (auto) 0.1 (0-0.2) 10^3/ul Absolute Nucleated RBC 0.01 10^3/ul Nucleated RBC % 0.1 Normal RBC Morphology Not Reportable Macrocytosis 3+ Stomatocytes 1+ INR (Anticoag Therapy) (0.89-1.11) D-Dimer, Quantitative (Less Than 230) ng/mL Patient Temperature ABG pH (7.35-7.45) ABG pCO2 (35-45) mmHg ABG pO2 (80-100) mmHg ABG HCO3 (19-31) mmol/L ABG O2 Saturation (95-98) % ABG Base Excess (-2.0-2.0) Respiration Rate O2 Delivery Device Ventilator Type Vent Mode FiO2 Inspiratory Time PEEP Pressure Support Pressure Control EPAP IPAP BiPAP Sodium 135 (133-145) mmol/L Potassium TNP Chloride 98 L (101-111) mmol/L Carbon Dioxide 28 (22-32) mmol/L Anion Gap 9 (2-11) mmol/L BUN 10 (6-24) mg/dL Creatinine 0.97 H (0.51-0.95) mg/dL Est GFR ( Amer) 71.4 (>60) Est GFR (Non-Af Amer) 55.5 (>60) BUN/Creatinine Ratio 10.3 (8-20) Glucose 85 (70-100) mg/dL Lactic Acid 1.2 (0.5-2.0) mmol/L Calcium 9.4 (8.6-10.3) mg/dL Magnesium (1.9-2.7) mg/dL Total Bilirubin 0.50 (0.2-1.0) mg/dL AST TNP ALT 9 (7-52) U/L Alkaline Phosphatase 46 (34-104) U/L Troponin I 0.00 (<0.04) ng/mL B-Natriuretic Peptide ( - 100) pg/mL Total Protein 6.9 (6.4-8.9) g/dL Albumin 3.6 (3.2-5.2) g/dL Globulin 3.3 (2-4) g/dL Albumin/Globulin Ratio 1.1 (1-3) 11/20/16 11/20/16 11/20/16 Range/Units 18:40 18:40 19:00 WBC (3.5-10.8) 10^3/ul RBC (4.0-5.4) 10^6/ul Hgb (12.0-16.0) g/dl Hct (35-47) % MCV (80-97) fL MCH (27-31) pg MCHC (31-36) g/dl RDW (10.5-15) % Plt Count (150-450) 10^3/ul MPV (7.4-10.4) um3 Neut % (Auto) (38-83) % Lymph % (Auto) (25-47) % [place] % (Auto) (1-9) % Eos % (Auto) (0-6) % Baso % (Auto) (0-2) % Absolute Neuts (auto) (1.5-7.7) 10^3/ul Absolute Lymphs (auto) (1.0-4.8) 10^3/ul Absolute Monos (auto) (0-0.8) 10^3/ul Absolute Eos (auto) (0-0.6) 10^3/ul Absolute Basos (auto) (0-0.2) 10^3/ul Absolute Nucleated RBC 10^3/ul Nucleated RBC % Normal RBC Morphology Macrocytosis Stomatocytes INR (Anticoag Therapy) 1.14 H (0.89-1.11) D-Dimer, Quantitative < 200 (Less Than 230) ng/mL Patient Temperature Not Reportable ABG pH 7.46 H (7.35-7.45) ABG pCO2 43 (35-45) mmHg ABG pO2 68 L (80-100) mmHg ABG HCO3 29.6 (19-31) mmol/L ABG O2 Saturation 96.7 (95-98) % ABG Base Excess 6.1 H (-2.0-2.0) Respiration Rate Not Reportable O2 Delivery Device Nc Ventilator Type Not Reportable Vent Mode Not Reportable FiO2 Not Reportable Inspiratory Time Not Reportable PEEP Not Reportable Pressure Support Not Reportable Pressure Control Not Reportable EPAP Not Reportable IPAP Not Reportable BiPAP Not Reportable Sodium (133-145) mmol/L Potassium Chloride (101-111) mmol/L Carbon Dioxide (22-32) mmol/L Anion Gap (2-11) mmol/L BUN (6-24) mg/dL Creatinine (0.51-0.95) mg/dL Est GFR ( Amer) (>60) Est GFR (Non-Af Amer) (>60) BUN/Creatinine Ratio (8-20) Glucose (70-100) mg/dL Lactic Acid (0.5-2.0) mmol/L Calcium (8.6-10.3) mg/dL Magnesium (1.9-2.7) mg/dL Total Bilirubin (0.2-1.0) mg/dL AST ALT (7-52) U/L Alkaline Phosphatase (34-104) U/L Troponin I (<0.04) ng/mL B-Natriuretic Peptide 32 ( - 100) pg/mL Total Protein (6.4-8.9) g/dL Albumin (3.2-5.2) g/dL Globulin (2-4) g/dL Albumin/Globulin Ratio (1-3) 11/20/ Range/Units 20:18 WBC (3.5-10.8) 10^3/ul RBC (4.0-5.4) 10^6/ul Hgb (12.0-16.0) g/dl Hct (35-47) % MCV (80-97) fL MCH (27-31) pg MCHC (31-36) g/dl RDW (10.5-15) % Plt Count (150-450) 10^3/ul MPV (7.4-10.4) um3 Neut % (Auto) (38-83) % Lymph % (Auto) (25-47) % [place] % (Auto) (1-9) % Eos % (Auto) (0-6) % Baso % (Auto) (0-2) % Absolute Neuts (auto) (1.5-7.7) 10^3/ul Absolute Lymphs (auto) (1.0-4.8) 10^3/ul Absolute Monos (auto) (0-0.8) 10^3/ul Absolute Eos (auto) (0-0.6) 10^3/ul Absolute Basos (auto) (0-0.2) 10^3/ul Absolute Nucleated RBC 10^3/ul Nucleated RBC % Normal RBC Morphology Macrocytosis Stomatocytes INR (Anticoag Therapy) (0.89-1.11) D-Dimer, Quantitative (Less Than 230) ng/mL Patient Temperature ABG pH (7.35-7.45) ABG pCO2 (35-45) mmHg ABG pO2 (80-100) mmHg ABG HCO3 (19-31) mmol/L ABG O2 Saturation (95-98) % ABG Base Excess (-2.0-2.0) Respiration Rate O2 Delivery Device Ventilator Type Vent Mode FiO2 Inspiratory Time PEEP Pressure Support Pressure Control EPAP IPAP BiPAP Sodium (133-145) mmol/L Potassium 2.6 L* Chloride (101-111) mmol/L Carbon Dioxide (22-32) mmol/L Anion Gap (2-11) mmol/L BUN (6-24) mg/dL Creatinine (0.51-0.95) mg/dL Est GFR ( Amer) (>60) Est GFR (Non-Af Amer) (>60) BUN/Creatinine Ratio (8-20) Glucose (70-100) mg/dL Lactic Acid (0.5-2.0) mmol/L Calcium (8.6-10.3) mg/dL Magnesium 1.3 L (1.9-2.7) mg/dL Total Bilirubin (0.2-1.0) mg/dL AST 11 L ALT (7-52) U/L Alkaline Phosphatase (34-104) U/L Troponin I (<0.04) ng/mL B-Natriuretic Peptide ( - 100) pg/mL Total Protein (6.4-8.9) g/dL Albumin (3.2-5.2) g/dL Globulin (2-4) g/dL Albumin/Globulin Ratio (1-3) ECG, personally reviewed: NSR rate 71, no ischemia, occasional PACs CXR, personally reviewed: IMPRESSION: HYPERINFLATION, CONSISTENT WITH COPD. NO ACTIVE CARDIOPULMONARY DISEASE. Impression: 76F presenting with COPD exacerbation DIAGNOSIS & PLAN Primary COPD exacerbation : albuterol nebs : mometasone/formoterol : tiotropium : supplemental oxygen : incentive spirometry : supportive care hypoKalemia : replace & recheck Secondary HX pulmonary embolism : SCDs & continue rivaroxaban AFIB : review meds once reconciled TIA : review meds once reconciled HTN : review meds once reconciled HLD : review meds once reconciled hypothyroidism : review meds once reconciled Admission Rational: observation for COPD exacerbation DVTp: SCDs & rivaroxaban Code Status: full HCP: son, Chip
[2016-11-20] MEDS ORDERED: traMADol TAB* 50 MG PO PRN (21:53)
[2016-11-20] MEDS ORDERED: CMCS: Melatonin (NF) 3 MG TAB PO PRN (21:53)
[2016-11-20] MEDS ORDERED: Albuterol 2.5 MG/3 ML NEB.SOL* (0.083%) INH PRN (21:53)
[2016-11-20] MEDS ORDERED: Acetaminophen TAB* 325 MG PO PRN (21:53)
[2016-11-20] MEDS ORDERED: Ondansetron INJ* 2 MG/ML VIAL IV PRN (21:53)
[2016-11-21] MEDS: Albuterol 2.5 MG/3 ML NEB.SOL* (0.083%) INH SCH ×4 (01:21→19:45)
[2016-11-21] MEDS: methylPREDNISolone SOD 40 MG* 1 ML VIAL IV SCH ×3 (01:53→17:51)
[2016-11-21 05:06] LABS: BUN/Creatinine Ratio 11.7 (8-20); Calcium 9.2 mg/dL (8.6-10.3); EGFR African American 61.1 (>60); EGFR Non-African American 47.5 (>60); Potassium 4.2 mmol/L (3.5-5.0)
[2016-11-21] MEDS: Omeprazole CAP* 20 MG PO SCH (05:49)
[2016-11-21] MEDS ORDERED: Ipratropium 0.5MG/2.5ML NEB* 0.5 MG/2.5 ML NEB.SOLN INH PRN (07:27)
[2016-11-21] MEDS ORDERED: Albuterol HFA INHALER* 8 gm MDI INH PRN (07:27)
[2016-11-21] MEDS ORDERED: Albuterol 2.5 MG/3 ML NEB.SOL* (0.083%) INH PRN (07:27)
[2016-11-21] MEDS ORDERED: guaiFENesin LIQ* 100 MG/5 ML UDC PO PRN (07:27)
[2016-11-21] MEDS ORDERED: LORazepam TAB(*) 0.5 MG PO PRN (07:27)
[2016-11-21] MEDS ORDERED: POLYETHYLENE GLYCOL PROPYLENE BOTH EYES PRN (07:27)
[2016-11-21] MEDS ORDERED: MAGNESIUM SULFATE 2 GM IVPB ONE (07:33)
[2016-11-21 07:59] LABS: Magnesium 2.5 mg/dL (1.9-2.7)
[2016-11-21] MEDS: Tiotropium CAP.INH* CAP.INH/18 MCG INH SCH (08:26)
[2016-11-21] MEDS: Mometasone/Formoter 200/5 MDI INH SCH ×2 (08:26→19:48)
[2016-11-21] MEDS: DOXYcycline IV* 100 MG in NS 0.9% 250 ML* 250 ML IVPB SCH ×2 (08:33→20:57)
[2016-11-21] MEDS ORDERED: Spiriva Inhaler DEVICE* 1 EACH DEVICE INH ONE (09:00)
[2016-11-21] MEDS ORDERED: Docusate CAP* 100 MG PO SCH (09:00)
[2016-11-21] MEDS ORDERED: Atenolol TAB* 25 MG PO SCH (09:00)
[2016-11-21] MEDS ORDERED: Levothyroxine TAB* 112 MCG TAB PO SCH (09:00)
[2016-11-21] MEDS: Cyanocobalamin TAB* 500 MCG PO SCH (09:19)
[2016-11-21] MEDS: Calcium/Vitamin D TAB 250/125* TAB PO SCH (09:20)
[2016-11-21] MEDS: Magnesium Oxide TAB* 400 MG PO SCH (09:20)
[2016-11-21] MEDS: Cetirizine* 10 MG TAB PO SCH (09:20)
[2016-11-21] MEDS: Cholecalciferol TAB* 1000 UNITS PO SCH (09:20)
[2016-11-21] MEDS: Lisinopril TAB* 10 MG PO SCH (09:21)
[2016-11-21] MEDS: Rivaroxaban TAB(*) 20 MG TAB PO SCH (09:21)
[2016-11-21] MEDS: Docusate CAP* 100 MG PO PRN (09:21)
[2016-11-21] MEDS: FLUoxetine CAP* 20 MG PO SCH (09:22)
[2016-11-21] MEDS: Multivitamins/Minerals TAB PO SCH (09:22)
[2016-11-21] MEDS: IRON POLYSACCHARIDE COMPLEX VI PO SCH (09:23)
[2016-11-21] MEDS: Fluticasone NASAL SPRAY 50MCG* 16 gm SPRAY BTL BOTH NARES SCH (09:23)
[2016-11-21] MEDS: HydroxyUREA CAP* 500 MG CAP PO SCH (09:23)
--- NOTE | 2016-11-21 15:12 | PN ---
Subjective Date of Service: 11/21/16 Interval History: HOSPITALIST PROGRESS NOTE Patient seen and examined at bedside. She feels a little better today. Dyspnea still present, worse when she gets emotional talking about her son's passing. Still coughing, but not as frequent as before. Denies CP or palpitations. Family History: Unchanged from Admission Social History: Unchanged from Admission Past Medical History: Unchanged from Admission Objective Active Medications: Acetaminophen (Tylenol Tab*) 650 mg PO Q6H PRN PRN Reason: FEVER/PAIN Albuterol (Ventolin 2.5 Mg/3 Ml Neb.Teodoro*) 2.5 mg INH Q2H PRN PRN Reason: SOB/WHEEZING Albuterol (Ventolin 2.5 Mg/3 Ml Neb.Teodoro*) 2.5 mg INH [id number] AWAKE [facility] Last Admin: 11/21/16 13:24 Dose: 2.5 mg Albuterol (Ventolin Hfa Inhaler*) 2 puff INH Q4HR PRN PRN Reason: WHEEZING Atenolol (Tenormin Tab*) 12.5 mg PO DAILY [facility] Last Admin: 11/21/16 09:19 Dose: 12.5 mg Atorvastatin Calcium (Lipitor*) 10 mg PO BEDTIME [facility] Calcium/Vitamin D (Oscal D Tab 250/125*) 1 tab PO DAILY [facility] Last Admin: 11/21/16 09:20 Dose: 1 tab Cetirizine HCl (Zyrtec*) 10 mg PO DAILY [facility] PRN Reason: Protocol Last Admin: 11/21/16 09:20 Dose: 10 mg Cholecalciferol (Vitamin D Tab*) 2,000 units PO EVERY OTHER DAY [facility] Last Admin: 11/21/16 09:20 Dose: 2,000 units Cyanocobalamin (Vitamin B12 Tab*) 250 mcg PO EVERY OTHER DAY [facility] Last Admin: 11/21/16 09:19 Dose: 250 mcg Docusate Sodium (Colace Cap*) 100 mg PO BID PRN PRN Reason: CONSTIPATION Last Admin: 11/21/16 09:21 Dose: 100 mg Fluoxetine HCl (Prozac Cap*) 40 mg PO DAILY [facility] Last Admin: 11/21/16 09:22 Dose: 40 mg Fluticasone Propionate (Flonase Nasal [place] 50mcg*) 2 spray BOTH NARES DAILY [facility] Last Admin: 11/21/16 09:23 Dose: 2 spray Furosemide (Lasix Tab*) 20 mg PO MoWeFr@0900 [facility] Guaifenesin (Robitussin*) 10 ml PO QID PRN PRN Reason: COUGH Last Admin: 11/21/16 09:23 Dose: 10 ml Hydroxyurea (Hydrea Cap*) 1,500 mg PO DAILY [facility] Last Admin: 11/21/16 09:23 Dose: 1,500 mg Doxycycline Hyclate 100 mg/ (Sodium Chloride) 250 mls @ 250 mls/hr IVPB Q12H [facility] Last Admin: 11/21/16 08:33 Dose: 250 mls/hr Ipratropium [place] (Atrovent 0.5 Mg Neb.Teodoro*) 0.5 mg INH TID PRN PRN Reason: SOB/WHEEZING Levothyroxine Sodium (Synthroid Tab*) 112 mcg PO DAILY@0600 [facility] Lisinopril (Prinivil Tab*) 40 mg PO DAILY [facility] Last Admin: 11/21/16 09:21 Dose: 40 mg Lorazepam (Ativan Tab(*)) 0.25 mg PO BEDTIME PRN PRN Reason: ANXIETY Magnesium Oxide (Magox 400 Tab*) 400 mg PO DAILY [facility] Last Admin: 11/21/16 09:20 Dose: 400 mg Methylprednisolone Sodium Succinate (Solu-Medrol 40 Mg) 40 mg IV Q8H [facility] Last Admin: 11/21/16 10:10 Dose: 40 mg Mometasone Furoate/Formoterol Fumar (Dulera 200/5 Mdi*) 2 puff INH BID [facility] Last Admin: 11/21/16 08:26 Dose: 2 puff Montelukast Sodium (Singulair Tab*) 10 mg PO BEDTIME [facility] Multivitamins/Minerals (Theragran/Minerals Tab*) 1 tab PO DAILY [facility] Last Admin: 11/21/16 09:22 Dose: 1 tab (Polyethylene Glycol -Propylene [Systane Ultra 0.4-0.3 %] 1 Te[place]oro) 1 teodoro BOTH EYES .BID-QID PRN PRN Reason: DRY EYE (Iron Polysaccharide Complex-Vi [Poly- Iron 150 Forte 150- 25-1 Mg-Mcg-Mg 1 cap PO DAILY [facility] Last Admin: 11/21/16 09:23 Dose: Not Given Omeprazole (Prilosec Cap*) 20 mg PO DAILY@0600 [facility] Last Admin: 11/21/16 05:49 Dose: 20 mg Ondansetron HCl (Zofran Inj*) 4 mg IV Q6H PRN PRN Reason: NAUSEA Rivaroxaban (Xarelto (*)) 20 mg PO DAILY [facility] Last Admin: 11/21/16 09:21 Dose: 20 mg Tiotropium [place] (Spiriva Cap.Inh*) 1 cap INH DAILY [facility] Last Admin: 11/21/16 08:26 Dose: 1 cap.inh Vital Signs 11/21/16 11/21/16 11/21/16 01:25 03:30 07:40 Temperature 97.6 F 97.9 F Pulse Rate 95 100 Respiratory 17 18 Rate Blood Pressure 141/48 188/70 (mmHg) O2 Sat by Pulse 96 96 98 Oximetry Oxygen Devices in Use Now: Nasal Cannula Appearance: Pleasant elderly lady sitting up in bed in NAD. Eyes: No Scleral Icterus Ears/Nose/Mouth/Throat: Mucous Membranes Moist Neck: Trachea Midline Respiratory: Symmetrical Chest Expansion and Respiratory Effort, - - BS+ bilaterally with faint wheezing on the right Cardiovascular: RRR - Normal S1 and S2 Abdominal: NL Sounds; No Tenderness; No Distention Extremities: No Edema Neurological: Alert and Oriented x 3, NL Muscle Strength and Tone Lines/Tubes/Other Access: Clean, Dry and Intact Peripheral IV Nutrition: Taking PO's Result Diagrams: 11/20/16 18:40 11/21/16 04:36 Assess/Plan/Problems-Billing Assessment: Mrs. Keita is a 76yo F with PMH of COPD on home O2, PE, Afib, TIA, HTN, HLD, anemia/thombocytosis on hydroxyurea, hypothyroidism, who presented to ED with c/ o dyspnea, found to have COPD exacerbation secondary to bronchitis. - Patient Problems (1) COPD exacerbation Comment: - Secondary to bronchitis. - Continue bronchodilators, steroids, and add Doxycycline. (2) Chronic respiratory failure Comment: - Continue supplemental O2. (3) History of pulmonary embolus (PE) Comment: - Continue Rivaroxaban. (4) Atrial fibrillation Comment: - Patient is in NSR now. - Continue Atenolol and Rivaroxaban. (5) HTN (hypertension) Comment: - Continue atenolol and Lisinopril. - Monitor BP. (6) Thrombocytosis Comment: - Continue hydroxyurea. (7) DVT prophylaxis Comment: - SCD and Rivaroxaban. (8) Full code status Status and Disposition: Change to inpatient.
[2016-11-21] MEDS ORDERED: NS 0.9% 250 ML* 250 ML ONE (20:52)
[2016-11-21] MEDS: Atorvastatin* 10 MG TAB PO SCH (20:58)
[2016-11-21] MEDS: Montelukast Sodium TAB* 10 MG PO SCH (20:58)
[2016-11-22] MEDS: methylPREDNISolone SOD 40 MG* 1 ML VIAL IV SCH ×3 (01:30→18:00)
[2016-11-22] MEDS ORDERED: hydrALAZINE IV* 20 MG/ML VIAL IV PRN (01:42)
[2016-11-22] MEDS ORDERED: Magnesium Hydroxide LIQ* 30 ML UDC PO ONE (01:43)
[2016-11-22] MEDS: Albuterol 2.5 MG/3 ML NEB.SOL* (0.083%) INH SCH ×4 (02:05→19:37)
[2016-11-22 05:22] LABS: Hematocrit 30 % (35-47); Hemoglobin 9.4 g/dl (12.0-16.0); Mean Corpuscular HGB Conc 32 g/dl (31-36); Mean Corpuscular Hemoglobin 40 pg (27-31); Mean Platelet Volume 9 um3 (7.4-10.4); Red Blood Count 2.32 10^6/ul (4.0-5.4); Red Cell Distribution Width 17 % (10.5-15); White Blood Count 13.5 10^3/ul (3.5-10.8)
[2016-11-22 05:23] LABS: Comments Flag Yes
[2016-11-22 05:24] LABS: Mean Corpuscular Volume 128 fL (80-97)
[2016-11-22 05:45] LABS: BUN/Creatinine Ratio 19.6 (8-20); Calcium 9.1 mg/dL (8.6-10.3); EGFR African American 75.9 (>60); Potassium 4.5 mmol/L (3.5-5.0)
[2016-11-22] MEDS: Omeprazole CAP* 20 MG PO SCH (05:55)
[2016-11-22] MEDS: Docusate CAP* 100 MG PO PRN (05:56)
[2016-11-22] MEDS: Levothyroxine TAB* 112 MCG TAB PO SCH (05:56)
[2016-11-22] MEDS: DOXYcycline IV* 100 MG in NS 0.9% 250 ML* 250 ML IVPB SCH ×2 (07:51→20:13)
[2016-11-22] MEDS: Tiotropium CAP.INH* CAP.INH/18 MCG INH SCH (08:22)
[2016-11-22] MEDS: Mometasone/Formoter 200/5 MDI INH SCH ×2 (08:22→19:38)
[2016-11-22] MEDS ORDERED: Furosemide TAB* 20 MG PO SCH (09:00)
[2016-11-22] MEDS: Fluticasone NASAL SPRAY 50MCG* 16 gm SPRAY BTL BOTH NARES SCH (09:57)
[2016-11-22] MEDS: HydroxyUREA CAP* 500 MG CAP PO SCH (09:57)
[2016-11-22] MEDS: Lisinopril TAB* 10 MG PO SCH (09:58)
[2016-11-22] MEDS: Atenolol TAB* 25 MG PO SCH (09:59)
[2016-11-22] MEDS: Cetirizine* 10 MG TAB PO SCH (10:00)
[2016-11-22] MEDS: Calcium/Vitamin D TAB 250/125* TAB PO SCH (10:00)
[2016-11-22] MEDS: FLUoxetine CAP* 20 MG PO SCH (10:00)
[2016-11-22] MEDS: Rivaroxaban TAB(*) 20 MG TAB PO SCH (10:00)
[2016-11-22] MEDS: Magnesium Oxide TAB* 400 MG PO SCH (10:00)
[2016-11-22] MEDS: Multivitamins/Minerals TAB PO SCH (10:00)
[2016-11-22] MEDS: IRON POLYSACCHARIDE COMPLEX VI PO SCH (10:04)
--- NOTE | 2016-11-22 14:51 | PN ---
Subjective Date of Service: 11/22/16 Interval History: HOSPITALIST PROGRESS NOTE Patient seen and examined at bedside. She feels better this AM. Had a good night of sleep and have more energy. Cough still present, but less frequent. Family History: Unchanged from Admission Social History: Unchanged from Admission Past Medical History: Unchanged from Admission Objective Active Medications: Acetaminophen (Tylenol Tab*) 650 mg PO Q6H PRN PRN Reason: FEVER/PAIN Albuterol (Ventolin 2.5 Mg/3 Ml Neb.Teodoro*) 2.5 mg INH Q2H PRN PRN Reason: SOB/WHEEZING Albuterol (Ventolin 2.5 Mg/3 Ml Neb.Teodoro*) 2.5 mg INH [id number] AWAKE [facility] Last Admin: 11/22/16 12:07 Dose: 2.5 mg Albuterol (Ventolin Hfa Inhaler*) 2 puff INH Q4HR PRN PRN Reason: WHEEZING Atenolol (Tenormin Tab*) 25 mg PO DAILY [facility] Last Admin: 11/22/16 09:59 Dose: 25 mg Atorvastatin Calcium (Lipitor*) 10 mg PO BEDTIME [facility] Last Admin: 11/21/16 20:58 Dose: 10 mg Calcium/Vitamin D (Oscal D Tab 250/125*) 1 tab PO DAILY [facility] Last Admin: 11/22/16 10:00 Dose: 1 tab Cetirizine HCl (Zyrtec*) 10 mg PO DAILY [facility] PRN Reason: Protocol Last Admin: 11/22/16 10:00 Dose: 10 mg Cholecalciferol (Vitamin D Tab*) 2,000 units PO EVERY OTHER DAY [facility] Last Admin: 11/21/16 09:20 Dose: 2,000 units Cyanocobalamin (Vitamin B12 Tab*) 250 mcg PO EVERY OTHER DAY [facility] Last Admin: 11/21/16 09:19 Dose: 250 mcg Docusate Sodium (Colace Cap*) 100 mg PO BID PRN PRN Reason: CONSTIPATION Last Admin: 11/22/16 05:56 Dose: 100 mg Fluoxetine HCl (Prozac Cap*) 40 mg PO DAILY [facility] Last Admin: 11/22/16 10:00 Dose: 40 mg Fluticasone Propionate (Flonase Nasal [place] 50mcg*) 2 spray BOTH NARES DAILY [facility] Last Admin: 11/22/16 09:57 Dose: 2 spray Furosemide (Lasix Tab*) 20 mg PO MoWeFr@0900 [facility] Last Admin: 11/22/16 10:00 Dose: 20 mg Guaifenesin (Robitussin*) 10 ml PO QID PRN PRN Reason: COUGH Last Admin: 11/21/16 09:23 Dose: 10 ml Hydralazine HCl (Apresoline Iv*) 10 mg IV Q4H PRN PRN Reason: Systolic >170 Hydroxyurea (Hydrea Cap*) 1,500 mg PO DAILY [facility] Last Admin: 11/22/16 09:57 Dose: 1,500 mg Doxycycline Hyclate 100 mg/ (Sodium Chloride) 250 mls @ 250 mls/hr IVPB Q12H [facility] Last Admin: 11/22/16 07:51 Dose: 250 mls/hr Ipratropium [place] (Atrovent 0.5 Mg Neb.Teodoro*) 0.5 mg INH TID PRN PRN Reason: SOB/WHEEZING Levothyroxine Sodium (Synthroid Tab*) 112 mcg PO DAILY@0600 [facility] Last Admin: 11/22/16 05:56 Dose: 112 mcg Lisinopril (Prinivil Tab*) 40 mg PO DAILY [facility] Last Admin: 11/22/16 09:58 Dose: 40 mg Lorazepam (Ativan Tab(*)) 0.25 mg PO BEDTIME PRN PRN Reason: ANXIETY Magnesium Oxide (Magox 400 Tab*) 400 mg PO DAILY [facility] Last Admin: 11/22/16 10:00 Dose: 400 mg Methylprednisolone Sodium Succinate (Solu-Medrol 40 Mg) 40 mg IV Q8H [facility] Last Admin: 11/22/16 09:56 Dose: 40 mg Mometasone Furoate/Formoterol Fumar (Dulera 200/5 Mdi*) 2 puff INH BID [facility] Last Admin: 11/22/16 08:22 Dose: 2 puff Montelukast Sodium (Singulair Tab*) 10 mg PO BEDTIME [facility] Last Admin: 11/21/16 20:58 Dose: 10 mg Multivitamins/Minerals (Theragran/Minerals Tab*) 1 tab PO DAILY [facility] Last Admin: 11/22/16 10:00 Dose: 1 tab (Polyethylene Glycol -Propylene [Systane Ultra 0.4-0.3 %] 1 Teodoro) 1 teodoro BOTH EYES .BID-QID PRN PRN Reason: DRY EYE (Iron Polysaccharide Complex-Vi [Poly- Iron 150 Forte 150- 25-1 Mg-Mcg-Mg 1 cap PO DAILY [facility] Last Admin: 11/22/16 10:04 Dose: Not Given Omeprazole (Prilosec Cap*) 20 mg PO DAILY@0600 [facility] Last Admin: 11/22/16 05:55 Dose: 20 mg Ondansetron HCl (Zofran Inj*) 4 mg IV Q6H PRN PRN Reason: NAUSEA Rivaroxaban (Xarelto (*)) 20 mg PO DAILY [facility] Last Admin: 11/22/16 10:00 Dose: 20 mg Tiotropium Sherman (Spiriva Cap.Inh*) 1 cap INH DAILY [facility] Last Admin: 11/22/16 08:22 Dose: 1 cap.inh Vital Signs 11/22/16 11/22/16 11/22/16 07:32 08:00 08:24 Temperature 98.3 F Pulse Rate 78 82 Respiratory 16 16 12 Rate Blood Pressure 148/63 (mmHg) O2 Sat by Pulse 97 98 Oximetry Oxygen Devices in Use Now: Nasal Cannula Appearance: Pleasant elderly lady sitting up in bed in [facility]. Eyes: No Scleral Icterus Ears/Nose/Mouth/Throat: Mucous Membranes Moist Neck: Trachea Midline Respiratory: Symmetrical Chest Expansion and Respiratory Effort, - - BS+ bilaterally decreased with no added sounds Cardiovascular: RRR - Normal S1 and S2 Abdominal: NL Sounds; No Tenderness; No Distention Neurological: Alert and Oriented x 3, NL Muscle Strength and Tone Lines/Tubes/Other Access: Clean, Dry and Intact Peripheral IV Nutrition: Taking PO's Result Diagrams: 11/22/16 05:01 11/22/16 05:01 Assess/Plan/Problems-Billing Assessment: Mrs. Keita is a 76yo F with PMH of COPD on home O2, PE, Afib, TIA, HTN, HLD, anemia/thombocytosis on hydroxyurea, hypothyroidism, who presented to ED with c/ o dyspnea, found to have COPD exacerbation secondary to bronchitis. - Patient Problems (1) COPD exacerbation Comment: - Secondary to bronchitis. - Improving. Encourage ambulation today. - Continue bronchodilators, steroids, and add Doxycycline. (2) Chronic respiratory failure Comment: - Continue supplemental O2. (3) History of pulmonary embolus (PE) Comment: - Continue Rivaroxaban. (4) Atrial fibrillation Comment: - Patient is in NSR now. - Continue Atenolol and Rivaroxaban. (5) HTN (hypertension) Comment: - BP was higher overnigh. - Will increase atenolol to 25mg and continue Lisinopril. - Monitor BP. (6) Thrombocytosis Comment: - Continue hydroxyurea. (7) DVT prophylaxis Comment: - SCD and Rivaroxaban. (8) Full code status Status and Disposition: Inpatient. Anticipate d/c in AM.
[2016-11-22] MEDS: Montelukast Sodium TAB* 10 MG PO SCH (20:13)
[2016-11-22] MEDS: Atorvastatin* 10 MG TAB PO SCH (20:13)
[2016-11-23] MEDS: methylPREDNISolone SOD 40 MG* 1 ML VIAL IV SCH ×2 (01:10→09:56)
[2016-11-23] MEDS: Albuterol 2.5 MG/3 ML NEB.SOL* (0.083%) INH SCH ×2 (01:19→07:36)
[2016-11-23] MEDS: Levothyroxine TAB* 112 MCG TAB PO SCH (06:38)
[2016-11-23] MEDS: Omeprazole CAP* 20 MG PO SCH (06:38)
[2016-11-23] MEDS: Mometasone/Formoter 200/5 MDI INH SCH (07:36)
[2016-11-23] MEDS: Tiotropium CAP.INH* CAP.INH/18 MCG INH SCH (07:36)
[2016-11-23] MEDS: DOXYcycline IV* 100 MG in NS 0.9% 250 ML* 250 ML IVPB SCH (07:54)
[2016-11-23 08:17] VITALS: BP 152/67
[2016-11-23] MEDS: Fluticasone NASAL SPRAY 50MCG* 16 gm SPRAY BTL BOTH NARES SCH (09:48)
[2016-11-23] MEDS: HydroxyUREA CAP* 500 MG CAP PO SCH (09:49)
[2016-11-23] MEDS: Cholecalciferol TAB* 1000 UNITS PO SCH (09:49)
[2016-11-23] MEDS: Atenolol TAB* 25 MG PO SCH (09:50)
[2016-11-23] MEDS: FLUoxetine CAP* 20 MG PO SCH (09:50)
[2016-11-23] MEDS: Multivitamins/Minerals TAB PO SCH (09:50)
[2016-11-23] MEDS: Cyanocobalamin TAB* 500 MCG PO SCH (09:51)
[2016-11-23] MEDS: Magnesium Oxide TAB* 400 MG PO SCH (09:52)
[2016-11-23] MEDS: Calcium/Vitamin D TAB 250/125* TAB PO SCH (09:52)
[2016-11-23] MEDS: Rivaroxaban TAB(*) 20 MG TAB PO SCH (09:52)
[2016-11-23] MEDS: Lisinopril TAB* 10 MG PO SCH (09:53)
[2016-11-23] MEDS: Cetirizine* 10 MG TAB PO SCH (09:53)
[2016-11-23] MEDS: IRON POLYSACCHARIDE COMPLEX VI PO SCH (09:59)
--- NOTE | 2016-11-23 21:42 | DS ---
CC: Kim Whitaker MD; Shannan Singh MD * DISCHARGE SUMMARY: DATE OF ADMISSION: 11/20/16 DATE OF DISCHARGE: 11/23/16 PRIMARY CARE PHYSICIAN: Kim Whitaker MD GRADE FOREMAN: Shannan Singh MD DISCHARGE DIAGNOSES: 1. Chronic obstructive pulmonary disease exacerbation secondary to bronchitis. 2. Chronic respiratory failure, requiring supplemental oxygen at home. SECONDARY DIAGNOSES: 1. Chronic obstructive pulmonary disease, on home O2. 2. History of pulmonary embolism. 3. Atrial fibrillation. 4. Transient ischemic attack. 5. Hypertension. 6. Hyperlipidemia. 7. Anemia. 8. Essential thrombocytosis, on hydroxyurea. 9. Hypothyroidism. MEDICATION LIST: 1. Spiriva 1 capsule inhaled daily. 2. Magnesium oxide 400 mg p.o. daily. 3. Poly-Iron 150 Forte 1 capsule p.o. daily. 4. Hydroxyurea 1500 mg p.o. daily. 5. Omeprazole 300 mg p.o. daily. 6. Montelukast 10 mg p.o. at bedtime. 7. Symbicort 160/4.5 two puffs inhaled b.i.d. 8. Cyanocobalamin 250 mcg p.o. every other day. 9. Albuterol 2.5 mg nebulized q.6 hours p.r.n. shortness of breath. 10. Levothyroxine 112 mcg p.o. daily. 11. Fexofenadine 180 mg p.o. daily. 12. Fluoxetine 40 mg p.o. daily. 13. Calcium carbonate plus vitamin D 600/200 one tablet p.o. daily. 14. Atorvastatin 10 mg p.o. at bedtime. 15. Rivaroxaban 20 mg p.o. daily. 16. Cholecalciferol 2000 units p.o. every other day. 17. Ipratropium 0.5 mg nebulized t.i.d. as needed for shortness of breath. 18. Albuterol HFA 2 puffs inhaled q.4 hours p.r.n. shortness of breath. 19. Guaifenesin 10 mL p.o. 4 times a day as needed for cough. 20. Andronate 70 mg p.o. weekly. 21. Combivent Respimat 1 puff inhaled t.i.d. p.r.n. shortness of breath. 22. Colace 100 to 200 mg p.o. b.i.d. as needed for constipation. 23. Systane Ultra 1 drop to both eyes 2 to 4 times a day as needed for dry eyes. 24. Furosemide 20 mg p.o. Mondays, Wednesdays, and Fridays. 25. Fluticasone nasal spray 50 micrograms 2 sprays to both nares daily. 26. Lisinopril 40 mg p.o. daily. 27. Ipratropium nasal spray 1 spray to each nare t.i.d. as needed for allergy symptoms. 28. Multivitamin 1 tablet p.o. daily. 29. Lorazepam 0.25 to 0.5 mg p.o. at bedtime as needed for anxiety/insomnia. New medications: 1. Doxycycline 100 mg p.o. b.i.d. for 5 more days. 2. Omeprazole 20 mg p.o. daily. Medication change: 1. The patient is usually on prednisone 2.5 mg a day. Should be started on a taper that consists of 40 mg for 3 days, then 30 mg for 3 days, then 20 mg for 3 days, 10 mg for 3 days, 5 mg for 3 days, then back to her usual 2.5 mg a day. 2. Atenolol was increased to 25 mg p.o. daily. HOSPITAL COURSE: Mrs. Keita is a 76-year-old lady with past medical history as stated above that presented to the emergency room with complaints of progressive shortness of breath for 2 days prior to admission. The patient has had a very difficult time since October when her son passed. She states that she has been very emotional and she also feels that the stress is playing a role on her symptoms. For more details about her presentation, I refer you to her history and physical. The patient's chest x-ray showed no infiltrate and the impression was that her episode of COPD exacerbation was secondary to bronchitis. The patient's blood pressure was a little elevated while in the hospital probably due to her high dose steroids, so her atenolol was increased to 25 mg a day, but as she tapers the steroids, I believe her blood pressure will probably lower again and she probably can be returned to her usual dose of 12.5 mg a day. The patient was started on bronchodilators, steroids and doxycycline and had progressive improvement of her symptoms. She felt today that she was close to her baseline and was thought to be stable for discharge. PHYSICAL EXAMINATION: Vital Signs: Temperature 97.2, heart rate is 68, respiratory rate is 16, oxygen saturation is 96% on 2 L, blood pressure is 124/ 64. General: The patient is a pleasant elderly lady, sitting up in bed, in no acute distress. CVS: Normal S1, S2. Regular rate and rhythm. Chest: Breath sounds present bilaterally, decreased with no added sounds. Abdomen is soft. Bowel sounds are present. Extremities: No edema. Neuro: She is alert, awake , oriented x3, able to move all 4 extremities. DIET: Heart-healthy diet. ACTIVITY: As tolerated. DISPOSITION: To home. STATUS WHILE IN THE HOSPITAL: Inpatient. Please keep in mind this is a summarized version of this patient's hospital stay. If you need more information, please feel free to call me at [phone] or please obtain the full medical records. TIME SPENT: Approximately 45 minutes was spent to complete this discharge. [id number]/[facility] #: [id number] LYN
== END 2016-11-23 11:45 | disposition home health service (06) | DRG 191 ==
LOC: ED 18:16 → MED 21:27 → OBSVTOIN 11-21 10:14
PROVIDERS: ADMIT Hospitalist; ATTEND Internal Medicine
DX: J44.1 Chronic obstructive pulmonary disease with (acute) exacerbation (principal); J96.10 Chronic respiratory failure, unspecified whether with hypoxia or hypercapnia; Z99.81 Dependence on supplemental oxygen; I48.91 Unspecified atrial fibrillation; I10 Essential (primary) hypertension; E78.5 Hyperlipidemia, unspecified; E03.9 Hypothyroidism, unspecified; E66.3 Overweight; E87.6 Hypokalemia; E78.00 Pure hypercholesterolemia, unspecified; K21.9 Gastro-esophageal reflux disease without esophagitis; M19.90 Unspecified osteoarthritis, unspecified site; F32.9 Major depressive disorder, single episode, unspecified; R40.2412 Glasgow coma scale score 13-15, at arrival to emergency department; J44.0 Chronic obstructive pulmonary disease with (acute) lower respiratory infection; J40 Bronchitis, not specified as acute or chronic; D47.3 Essential (hemorrhagic) thrombocythemia; D64.9 Anemia, unspecified; Z86.711 Personal history of pulmonary embolism; Z86.73 Personal history of transient ischemic attack (TIA), and cerebral infarction without residual deficits; Z88.1 Allergy status to other antibiotic agents; Z88.8 Allergy status to other drugs, medicaments and biological substances; Z98.51 Tubal ligation status; Z87.891 Personal history of nicotine dependence; Z82.49 Family history of ischemic heart disease and other diseases of the circulatory system; Z82.3 Family history of stroke; Z80.6 Family history of leukemia; Z68.28 Body mass index [BMI] 28.0-28.9, adult; Z98.42 Cataract extraction status, left eye; Z98.41 Cataract extraction status, right eye; Z83.3 Family history of diabetes mellitus; Z79.52 Long term (current) use of systemic steroids
CPT/HCPCS: 36415; 36600; 71020; 80048; 80053; 82803; 83605; 83735; 83880; 84484; 85025; 85379; 85610; 87040; 87899; 93005; 94640; 94760; A9270-GY; G0378; J2920; J2930; J3475

== ENCOUNTER 2017-07-03 08:12 | Inpatient (IN) | payer MEDICARE ==
[2017-07-03] MEDS ORDERED: Albuterol/Ipratropium NEB.SOL* Albuterol 2.5 MG/Ipratropium 0.5 MG 3 ML INH ONE (08:23)
[2017-07-03] MEDS ORDERED: methylPREDNISolone 125 MG* 2 ML VIAL IV ONE (08:40)
[2017-07-03] MEDS ORDERED: Levofloxacin 750 MG IVPREMIX(* 750 MG/150 ML BAG IVPB ONE (08:40)
[2017-07-03] MEDS ORDERED: LORazepam INJ* 2 MG/ML 1 ML VIAL IV ONE (08:41)
[2017-07-03] MEDS ORDERED: LORazepam INJ* 2 MG/ML 1 ML VIAL ONE (08:42)
[2017-07-03] MEDS: NS 0.9% 1000 ML* 1,000 ML IV SCH ×3 (08:46→18:23)
[2017-07-03 08:55] LABS: Hematocrit 34 % (35-47); Hemoglobin 11.1 g/dl (12.0-16.0); Mean Corpuscular HGB Conc 33 g/dl (31-36); Mean Corpuscular Hemoglobin 42 pg (27-31); Mean Corpuscular Volume 130 fL (80-97); Mean Platelet Volume 10 um3 (7.4-10.4); Platelet Count 548 10^3/ul (150-450); Red Blood Count 2.63 10^6/ul (4.0-5.4); Red Cell Distribution Width 16 % (10.5-15); White Blood Count 20.3 10^3/ul (3.5-10.8)
[2017-07-03 08:58] LABS: EGFR Non-African American 64.5 (>60); INR 1.15 (0.77-1.02)
--- NOTE | 2017-07-03 09:35 | RAD ---
HISTORY: Shortness of breath COMPARISONS: November 20, 2016 VIEWS: 1: frontal portable view of the chest at 9:10 AM FINDINGS: LINES AND TUBES: None. CARDIOMEDIASTINAL SILHOUETTE: The cardiomediastinal silhouette is normal for portable technique. PLEURA: The costophrenic angles are sharp. No pleural abnormalities are noted. LUNG PARENCHYMA: There is patchy alveolar opacification lung bases bilaterally. ABDOMEN: The upper abdomen is clear. There is no subphrenic gas. BONES AND SOFT TISSUES: No bone or soft tissue abnormalities are noted. IMPRESSION: PATCHY BIBASILAR ATELECTASIS VERSUS CONSOLIDATION. RECOMMEND FOLLOW-UP UNTIL RESOLUTION TO EXCLUDE UNDERLYING PULMONARY PARENCHYMAL PATHOLOGY.
[2017-07-03 10:06] LABS: ABS Basophils 0.1 10^3/ul (0-0.2); ABS Eosinophils 0 10^3/ul (0-0.6); ABS Lymphocytes 6.6 10^3/ul (1.0-4.8); ABS Monocytes 0.4 10^3/ul (0-0.8); ABS Neutrophils 13.1 10^3/ul (1.5-7.7); ABS Nucleated RBC 0 10^3/ul; Eosinophil % 0.2 % (0-6); Lymphocyte % 32.5 % (25-47); Nucleated Red Blood Cells % 0.1
[2017-07-03] MEDS ORDERED: LORazepam INJ* 2 MG/ML 1 ML VIAL IV PUSH PRN (10:49)
[2017-07-03] MEDS ORDERED: Albuterol/Ipratropium NEB.SOL* Albuterol 2.5 MG/Ipratropium 0.5 MG 3 ML INH SCH (11:00)
[2017-07-03] MEDS: cefTRIAXone(*) 1 GM in NS 0.9% 50 ML* 50 ML IVPB SCH (13:07)
[2017-07-03 13:14] LABS: Urine Appearance Cloudy; Urine Blood Negative (Negative); Urine Color Yellow; Urine Ketones Negative (Negative); Urine Protein Negative (Negative); Urine Red Blood Cell Absent (Absent); Urine Specific Gravity 1.012 (1.010-1.030); Urine Urobilinogen Negative (Negative); Urine White Blood Cell 3+(>20/hpf) (Absent)
--- NOTE | 2017-07-03 13:40 | ED ---
Amadeo Bates Jennifer, scribed for Por Black MD on 07/03/17 at 0820 . Respiratory - HPI Summary HPI Summary: The patient is a 77 year female who was brought in for difficulty breathing since this morning. She was at 87% O2 at home and uses home O2, 2L. The patient reports she had bronchitis last month and Pneumonia in April 2017. She was given Zodran and Duoneb on the way to the hospital. She denies swelling of the ankles. - History of Current Complaint Stated Complaint: DIFF BREATHING Time Seen by Provider: 07/03/17 08:14 Hx Obtained From: Patient, EMS Onset/Duration: Sudden Onset - This morning, Still Present Timing: Constant Initial Severity: Moderate Current Severity: Moderate Character: Wheezing Sputum Amount: None Aggravating Factor(s): Nothing Alleviating Factor(s): Nothing Associated Signs and Symptoms: Negative - swelling of the ankles, SOB - Allergy/Home Medications Allergies/Adverse Reactions: Allergies Allergy/AdvReac Type Severity Reaction Status Date / Time amlodipine [From Norvasc] Allergy See Comment Verified 07/03/17 08:22 azithromycin [From Zithromax] Allergy Diarrhea Verified 07/03/17 08:22 clarithromycin [From Biaxin] Allergy Hives Verified 07/03/17 08:22 garlic Allergy Diarrhea Verified 07/03/17 08:22 Home Medications: Home Medications Acetaminophen [Acetaminophen Extra Strength] 1,000 mg PO Q8H 07/03/17 [History Confirmed 07/03/17] Albuterol HFA INHALER* [Ventolin HFA Inhaler*] 2 puff INH Q4H PRN 07/03/17 [ History Confirmed 07/03/17] Cetirizine* [ZyrTEC 10 MG TAB*] 10 mg PO DAILY 07/03/17 [History Confirmed 07/03] Lisinopril TAB* [Prinivil TAB*] 40 mg PO DAILY 07/03/17 [History Confirmed 07/03] Loperamide CAP* [Imodium CAP*] 2 mg PO TID PRN 07/03/17 [History Confirmed 07/03] Propylene Glycol/Peg 400/Pf [Systane 0.3-0.4% Eye Drops] 1 drop BOTH EYES QID PRN 07/03/17 [History Confirmed 07/03/17] predniSONE TAB* [Deltasone TAB*] 5 mg PO DAILY 07/03/17 [History Confirmed 07/03] PMH/Surg Hx/FS Hx/Imm Hx Endocrine/Hematology History: Reports: Hx Anticoagulant Therapy - coumadin, Hx Blood Disorders, Hx Thyroid Disease - HYPOTHYROIDISM, Hx Anemia - PERNICIOUS ANEMIA, Other Endocrine/Hematological Disorders - 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 Denies: Hx Blood Transfusions, Hx Bone Marrow Disease, Hx Diabetes, Hx Systemic Lupus Erythematosus, Hx Unexplained Bleeding Cardiovascular History: Reports: Hx Atrial Fibrillation, Hx Hypercholesterolemia , Hx Hypertension, Other Cardiovascular Problems/Disorders - A FIB Denies: Hx Pacemaker/ICD Respiratory History: Reports: Hx Asthma, Hx Chronic Bronchitis, Hx Chronic Obstructive Pulmonary Disease (COPD) - ON HOME O2, Hx Pneumonia, Hx Pulmonary Embolism, Other Respiratory Problems/Disorders - PT STATES SHE HAS A HX OF A BLOOD CLOT GI History: Reports: Hx Gastroesophageal Reflux Disease, Other GI Disorders - gastroenteritis History: Denies: Hx Dialysis, Hx Renal Disease Musculoskeletal History: Reports: Hx Arthritis - OA, Other Musculoskeletal History - osteo-arthritis Sensory History: Reports: Hx Contacts or Glasses Denies: Hx Cataracts - bilaterally removed, Hx Hearing Aid Opthamlomology History: Reports: Hx Contacts or Glasses Denies: Hx Cataracts - bilaterally removed Neurological History: Denies: Hx Dementia, Hx Seizures Psychiatric History: Reports: Hx Depression, Other Psychiatric Issues/Disorders - takes prozac to deter from smoking Denies: Hx Panic Disorder, Hx Substance Abuse - Cancer History Cancer Type, Location and Year: arthritis Hx Chemotherapy: No Hx Radiation Therapy: No - Surgical History Surgery Procedure, Year, and Place: Tubal ligation, pt states 31 years ago. Oral surgery, pt states when she was a teenager. CATARACT SURGERY Hx Anesthesia Reactions: No - difficulty reversing or "waking up." - Immunization History Date of Tetanus Vaccine: Unk Date of Influenza Vaccine: Fall 2013 Infectious Disease History: Denies: Hx Clostridium Difficile, Hx Hepatitis, Hx Human Immunodeficiency Virus (HIV), Hx Shingles, Hx Tuberculosis - Family History Known Family History: Positive: Cardiac Disease, Hypertension, Diabetes - Social History Alcohol Use: None Substance Use Type: Reports: None Smoking Status (MU): Former Smoker Type: Cigarettes Have You Smoked in the Last Year: No Review of Systems Positive: Shortness Of Breath Negative: Edema All Other Systems Reviewed And Are Negative: Yes Physical Exam - Summary Physical Exam Summary: General: well-appearing, no pain distress Skin: warm, color reflects adequate perfusion, dry Head: normal Eyes: EOMI, MARIO ENT: normal Neck: supple, nontender Respiratory: Moderate respiratory distress, loos cough, breath sounds present. Wheezes and rhonchi bilaterally. Cardiovascular: Tachycardic. Regular rhythm. Abdomen: soft, nontender Bowel: present Musculoskeletal: normal, strength/ROM intact. Trace pedal edema. Neurological: normal, sensory/motor intact, A&O x3 Psychological: affect/mood appropriate Triage Information Reviewed: Yes Vital Signs On Initial Exam: Initial Vitals Temp Pulse Resp BP Pulse Ox 99.5 F 104 30 192/100 94 07/03/17 08:16 07/03/17 08:16 07/03/17 08:16 07/03/17 08:16 07/03/17 08:16 Vital Signs Reviewed: Yes Diagnostics - Vital Signs Vital Signs Temp Pulse Resp BP Pulse Ox 07/03/17 11:00 103 25 104/53 99 07/03/17 10:32 104 27 81/46 99 07/03/17 10:30 104 24 89/44 99 07/03/17 10:03 109 23 77/39 100 07/03/17 10:00 108 18 77/49 99 07/03/17 09:30 109 30 101/49 100 07/03/17 09:20 104 25 100/27 100 07/03/17 09:05 102 28 118/49 99 07/03/17 09:00 95 22 206/183 100 07/03/17 08:53 101 35 87 07/03/17 08:46 34 07/03/17 08:41 102 29 193/164 93 07/03/17 08:37 104 24 94 07/03/17 08:35 192/170 07/03/17 08:30 99/59 07/03/17 08:26 92 07/03/17 08:20 30 07/03/17 08:16 99.5 F 104 30 192/100 94 - Laboratory Lab Results: Lab Results 07/03/17 07/03/17 07/03/17 Range/Units 08:34 08:34 08:34 WBC (3.5-10.8) 10^3/ul RBC (4.0-5.4) 10^6/ul Hgb (12.0-16.0) g/dl Hct (35-47) % MCV (80-97) fL MCH (27-31) pg MCHC (31-36) g/dl RDW (10.5-15) % Plt Count (150-450) 10^3/ul MPV (7.4-10.4) um3 Neut % (Auto) (38-83) % Lymph % (Auto) (25-47) % [place] % (Auto) (0-7) % Eos % (Auto) (0-6) % Baso % (Auto) (0-2) % Absolute Neuts (auto) (1.5-7.7) 10^3/ul Absolute Lymphs (auto) (1.0-4.8) 10^3/ul Absolute Monos (auto) (0-0.8) 10^3/ul Absolute Eos (auto) (0-0.6) 10^3/ul Absolute Basos (auto) (0-0.2) 10^3/ul Absolute Nucleated RBC 10^3/ul Nucleated RBC % INR (Anticoag Therapy) 1.15 H (0.77-1.02) APTT 29.4 (26.0-36.3) seconds D-Dimer, Quantitative 278 H (Less Than 230) ng/mL ABG pH (7.35-7.45) ABG pCO2 (35-45) mmHg ABG pO2 (80-100) mmHg ABG HCO3 (19-31) mmol/L ABG O2 Saturation (95-98) % ABG Base Excess (-2.0-2.0) Sodium 138 (133-145) mmol/L Potassium 3.8 (3.5-5.0) mmol/L Chloride 101 (101-111) mmol/L Carbon Dioxide 29 (22-32) mmol/L Anion Gap 8 (2-11) mmol/L BUN 17 (6-24) mg/dL Creatinine 0.85 (0.51-0.95) mg/dL Est GFR ( Amer) 83.0 (>60) Est GFR (Non-Af Amer) 64.5 (>60) BUN/Creatinine Ratio 20.0 (8-20) Glucose 132 H (70-100) mg/dL Lactic Acid 2.8 H* (0.5-2.0) mmol/L Calcium 9.1 (8.6-10.3) mg/dL Magnesium 1.8 L (1.9-2.7) mg/dL Total Bilirubin 0.60 (0.2-1.0) mg/dL AST 17 (13-39) U/L ALT 13 (7-52) U/L Alkaline Phosphatase 53 (34-104) U/L Total Creatine Kinase 24 (10-223) U/L CK-MB (CK-2) 0.7 (0.6-6.3) ng/mL Troponin I 0.01 (<0.04) ng/mL C-Reactive Protein 4.97 (< 5.00) mg/L B-Natriuretic Peptide ( - 100) pg/mL Total Protein 6.9 (6.4-8.9) g/dL Albumin 4.0 (3.2-5.2) g/dL Globulin 2.9 (2-4) g/dL Albumin/Globulin Ratio 1.4 (1-3) Lipase 22 (11.0-82.0) U/L TSH 1.43 (0.34-5.60) mcIU/mL 07/03/17 07/03/17 07/03/17 Range/Units 08:34 08:34 08:44 WBC 20.3 H (3.5-10.8) 10^3/ul RBC 2.63 L (4.0-5.4) 10^6/ul Hgb 11.1 L (12.0-16.0) g/dl Hct 34 L (35-47) % MCV 130 H (80-97) fL MCH 42 H (27-31) pg MCHC 33 (31-36) g/dl RDW 16 H (10.5-15) % Plt Count 548 H (150-450) 10^3/ul MPV 10 (7.4-10.4) um3 Neut % (Auto) 64.8 (38-83) % Lymph % (Auto) 32.5 (25-47) % [place] % (Auto) 2.1 (0-7) % Eos % (Auto) 0.2 (0-6) % Baso % (Auto) 0.4 (0-2) % Absolute Neuts (auto) 13.1 H (1.5-7.7) 10^3/ul Absolute Lymphs (auto) 6.6 H (1.0-4.8) 10^3/ul Absolute Monos (auto) 0.4 (0-0.8) 10^3/ul Absolute Eos (auto) 0 (0-0.6) 10^3/ul Absolute Basos (auto) 0.1 (0-0.2) 10^3/ul Absolute Nucleated RBC 0 10^3/ul Nucleated RBC % 0.1 INR (Anticoag Therapy) (0.77-1.02) APTT (26.0-36.3) seconds D-Dimer, Quantitative (Less Than 230) ng/mL ABG pH 7.39 (7.35-7.45) ABG pCO2 44 (35-45) mmHg ABG pO2 78 L (80-100) mmHg ABG HCO3 25.9 (19-31) mmol/L ABG O2 Saturation 97.4 (95-98) % ABG Base Excess 1.3 (-2.0-2.0) Sodium (133-145) mmol/L Potassium (3.5-5.0) mmol/L Chloride (101-111) mmol/L Carbon Dioxide (22-32) mmol/L Anion Gap (2-11) mmol/L BUN (6-24) mg/dL Creatinine (0.51-0.95) mg/dL Est GFR ( Amer) (>60) Est GFR (Non-Af Amer) (>60) BUN/Creatinine Ratio (8-20) Glucose (70-100) mg/dL Lactic Acid (0.5-2.0) mmol/L Calcium (8.6-10.3) mg/dL Magnesium (1.9-2.7) mg/dL Total Bilirubin (0.2-1.0) mg/dL AST (13-39) U/L ALT (7-52) U/L Alkaline Phosphatase (34-104) U/L Total Creatine Kinase (10-223) U/L CK-MB (CK-2) (0.6-6.3) ng/mL Troponin I (<0.04) ng/mL C-Reactive Protein (< 5.00) mg/L B-Natriuretic Peptide 81 ( - 100) pg/mL Total Protein (6.4-8.9) g/dL Albumin (3.2-5.2) g/dL Globulin (2-4) g/dL Albumin/Globulin Ratio (1-3) Lipase (11.0-82.0) U/L TSH (0.34-5.60) mcIU/mL Result Diagrams: 07/03/17 08:34 18 08:34 Lab Statement: Any lab studies that have been ordered have been reviewed, and results considered in the medical decision making process. - Radiology CXR Xray Interpretation: Positive (See Comments) - PATCHY BIBASILAR ATELECTASIS VERSUS CONSOLIDATION. RECOMMEND FOLLOW-UP UNTIL RESOLUTION TO EXCLUDE UNDERLYING PULMONARY PARENCHYMAL PATHOLOGY. Dr. Black has reviewed this report. Radiology Interpretation Completed By: Radiologist - EKG 08:29 Cardiac Rate: Tachycardia EKG Rhythm: Sinus Tachycardia - [address] Segment: Normal Ectopy: None Disposition - Course Course Of Treatment: IMPROVED IN ED. DISCUSSED WITH DR BALLARD AND DR JEAN. ADMIT ICU Assessment/Plan: Medications reviewed. Allergies noted. BP noted and advised to follow-up with PCP. - Diagnoses Provider Diagnoses: Hypertension, Pneumonia, Hypoxia, COPD (chronic obstructive pulmonary disease) - Physician Notifications Discussed Care Of Patient With: Amber Ballard Time Discussed With Above Provider: 09:53 - Critical Care Time Critical Care Time: 30-74 min Discharge - Discharge Plan Condition: Guarded Disposition: ADMITTED TO [facility] documentation as recorded by the Amadeo mcclain Jennifer accurately reflects the service I personally performed and the decisions made by me, Pro Black MD.
[2017-07-03] MEDS: Albuterol/Ipratropium NEB.SOL* Albuterol 2.5 MG/Ipratropium 0.5 MG 3 ML INH SCH ×2 (13:53→19:59)
--- NOTE | 2017-07-03 18:01 | HP ---
ADMISSION HISTORY AND PHYSICAL: DATE OF ADMISSION: 07/03/17 REASON FOR ADMISSION: Pneumonia and atrial fibrillation. HISTORY OF PRESENT ILLNESS: This is a 77-year-old female with multiple medical problems, including COPD, AFib, hypertension, hypothyroidism, status post pulmonary embolism, status post TIA, who was brought to the emergency room earlier today because of shortness of breath and was found to have possible community-acquired pneumonia associated with rapid AFib and low blood pressure. The patient was subsequently admitted to the intensive care unit for management. The patient was alert and appeared comfortable when evaluated on admission and she claimed shortness of breath just started this morning and is not associated with fever, cough, or sputum production. It was noted in the ED that her respiratory distress improved significantly after receiving 1 mg of Ativan IV. The patient is on home oxygen, but lives at home by herself and is able to manage. OUTPATIENT MEDICATIONS: There are numerous outpatient meds: 1. Atenolol 12.5 mg daily. 2. Lipitor 10 mg at bedtime. 3. Prozac 40 mg at bedtime. 4. Montelukast sodium 10 mg at bedtime. 5. Omeprazole 20 mg daily. 6. Fosamax 70 mg weekly. 7. Synthroid 112 mcg daily. 8. Combivent 1 puff 3 times a day p.r.n. 9. Symbicort 2 puffs twice daily. 10. Calcium carbonate 1 tab daily. 11. Lasix 20 mg Sunday, Sunday, and Sunday. 12. Hydroxyurea 1500 mg daily. 13. Ipratropium 2 sprays t.i.d. p.r.n. 14. Cholecalciferol 2000 units daily. 15. Fluticasone nasal spray 2 sprays daily. 16. Lorazepam 0.5 mg at bedtime. 17. Lisinopril 40 mg daily. 18. Mag oxide 400 mg daily. 19. Xarelto 20 mg daily. 20. Spiriva 1 cap inhaled daily. 21. Prednisone 2.5 mg daily. ALLERGIES: The patient's drug allergies include CLARITHROMYCIN, which produces hives; AZITHROMYCIN, which produces diarrhea; and AMLODIPINE, which produces elevated liver enzymes. REVIEW OF SYSTEMS: Noncontributory. PHYSICAL EXAMINATION GENERAL: The patient appeared comfortable in bed and was alert and oriented. VITAL SIGNS: Temp was 99.5 temporal, heart rate was 110 and irregular, blood pressure was 81/46, and O2 sat was 99% on OxyMask. HEENT: Oropharynx was clear. NECK: Supple. LUNGS: There is occasional inspiratory wheeze bilaterally and also bibasilar crackles, which cleared with deep inspiration. CARDIAC EXAM: Revealed an irregular rhythm without murmurs, rubs. ABDOMEN: Soft and not distended. Bowel sounds are present. EXTREMITIES: Warm and not cyanotic and there was 1+ peripheral edema. DIAGNOSTIC STUDIES/LAB DATA: Admission labs were significant for white count of 20.3, lactate of 2.8. Electrolytes were normal as was BUN and creatinine. C - reactive protein was only 4.97. Blood gases showed a pO2 of 78, pCO2 of 44, pH of 7.39, and calculated bicarb of 25.9. Chest x-ray showed infiltrate at the right lung base that could represent pneumonia or atelectasis. EKG showed atrial fibrillation with a rapid ventricular response. IMPRESSION: This patient with severe chronic obstructive pulmonary disease experienced an exacerbation while at home that may have been triggered by anxiety more than infection. However, given the elevated white count in the appearance of the chest x-ray, pneumonia is a presumptive diagnosis and the patient will be placed on empiric coverage for community-acquired pneumonia. Because of the blood pressure being low and the heart rate being elevated, patient will be admitted to the intensive care unit. MANAGEMENT PLAN: Empiric antibiotic coverage for community-acquired pneumonia with levofloxacin and ceftriaxone. I will hold beta-blockers for now because of the borderline blood pressure and use amiodarone if rate control is necessary for atrial fibrillation. We will also temporarily increase steroids to 40 mg of prednisone daily. I will use ativan for anxiolysis PRN. The patient is aware of the diagnosis and management plans. CRITICAL CARE TIME: 60 minutes. [id number]/[facility] #: [id number] LYN
--- NOTE | 2017-07-03 20:14 | PN ---
Progress Note - Progress Note Date of Service: 07/03/17 Note: Patient evaluated. Feels much better than this AM. Weaned from VapoTherm to Salter at 5L. Is sitting up in a bedside chair delivering her own nebulizer [place]. No respiratory distress. RLL crackles, fair airation, no accessory muscle use. CV RRR. Abd SNTND. CXR w/ RLL infiltrate on levofloxacin. Case reviewed with Polo Her MD Fulfillment Specialist who agreed with transfer out of ICU.
[2017-07-03] MEDS: Atorvastatin* 10 MG TAB PO SCH (23:24)
[2017-07-03] MEDS: Montelukast Sodium TAB* 10 MG PO SCH (23:24)
[2017-07-04] MEDS: Albuterol/Ipratropium NEB.SOL* Albuterol 2.5 MG/Ipratropium 0.5 MG 3 ML INH SCH ×4 (01:22→19:39)
[2017-07-04] MEDS: NS 0.9% 1000 ML* 1,000 ML IV SCH (05:35)
[2017-07-04] MEDS: Levothyroxine TAB* 112 MCG TAB PO SCH (08:06)
[2017-07-04] MEDS: Omeprazole CAP* 20 MG PO SCH (08:06)
[2017-07-04] MEDS: predniSONE TAB* 20 MG PO SCH (08:49)
[2017-07-04] MEDS: Levofloxacin 500 MG IVPREMIX(* 500 MG/100 ML BAG IVPB SCH (08:49)
[2017-07-04] MEDS: FLUoxetine CAP* 20 MG PO SCH (08:49)
[2017-07-04] MEDS: Rivaroxaban TAB(*) 20 MG TAB PO SCH (08:49)
[2017-07-04] MEDS ORDERED: Furosemide TAB* 20 MG PO SCH (09:00)
[2017-07-04 09:04] LABS: Hematocrit 28 % (35-47); Hemoglobin 8.9 g/dl (12.0-16.0); Mean Corpuscular HGB Conc 32 g/dl (31-36); Mean Corpuscular Hemoglobin 41 pg (27-31); Mean Corpuscular Volume 130 fL (80-97); Mean Platelet Volume 10 um3 (7.4-10.4); Platelet Count 389 10^3/ul (150-450); Red Blood Count 2.16 10^6/ul (4.0-5.4); Red Cell Distribution Width 16 % (10.5-15); White Blood Count 23.8 10^3/ul (3.5-10.8)
[2017-07-04 09:09] LABS: EGFR Non-African American 76.9 (>60)
[2017-07-04 09:26] LABS: ABS Basophils 0.1 10^3/ul (0-0.2); ABS Eosinophils 0.1 10^3/ul (0-0.6); ABS Lymphocytes 4.2 10^3/ul (1.0-4.8); ABS Monocytes 0 10^3/ul (0-0.8); ABS Neutrophils 19.4 10^3/ul (1.5-7.7); ABS Nucleated RBC 0 10^3/ul; Eosinophil % 0.3 % (0-6); Lymphocyte % 17.7 % (25-47); Nucleated Red Blood Cells % 0
[2017-07-04] MEDS ORDERED: Magnesium Sulfate 2 GM IV* 2 GM/50 ML BAG IVPB ONE (10:41)
[2017-07-04] MEDS ORDERED: Potassium Chlor TAB* 20 MEQ TAB.ER PO ONE (10:41)
[2017-07-04] MEDS: Fluticasone NASAL SPRAY 50MCG* 16 gm SPRAY BTL BOTH NARES SCH (11:14)
[2017-07-04] MEDS: cefTRIAXone(*) 1 GM in NS 0.9% 50 ML* 50 ML IVPB SCH (12:46)
--- NOTE | 2017-07-04 16:54 | PN ---
Subjective Date of Service: 07/04/17 Interval History: Pt feeling better. Transferred from ICU last night. HRs controlled, mostly NSR. WBC up to 23.8 from 20.3 Down to 3L. Chronically on 2L Strep pneumonia urine Antigen positive. had BM Objective Active Medications: Albuterol/Ipratropium (Duoneb (Albuterol 2.5 Mg/Ipratropium 0.5 Mg)) 1 neb INH [id number] AWAKE [facility] Last Admin: 07/04/17 13:47 Dose: 1 neb Atorvastatin Calcium (Lipitor*) 10 mg PO BEDTIME [facility] Last Admin: 07/03/17 23:24 Dose: 10 mg Fluoxetine HCl (Prozac Cap*) 40 mg PO DAILY [facility] Last Admin: 07/04/17 08:49 Dose: 40 mg Fluticasone Propionate (Flonase Nasal [place] 50mcg*) 2 spray BOTH NARES DAILY [facility] Last Admin: 07/04/17 11:14 Dose: 2 spray Furosemide (Lasix Tab*) 20 mg PO MOWEFR [facility] Last Admin: 07/04/17 08:49 Dose: 20 mg Sodium Chloride (Ns 0.9% 1000 Ml*) 1,000 mls @ 100 mls/hr IV PER RATE [facility] Last Admin: 07/04/17 05:35 Dose: 100 mls/hr Ceftriaxone Sodium 1 gm/ (Sodium Chloride) 50 mls @ 200 mls/hr IVPB Q24H [facility] Last Admin: 07/04/17 12:46 Dose: 200 mls/hr Levofloxacin/Dextrose (Levaquin 500 Mg Ivpremix(*)) 500 mg in 100 mls @ 100 mls /hr IVPB Q24H [facility] Last Admin: 07/04/17 08:49 Dose: 100 mls/hr Levothyroxine Sodium (Synthroid Tab*) 112 mcg PO DAILY@0600 [facility] Last Admin: 07/04/17 08:06 Dose: 112 mcg Lorazepam (Ativan Inj*) 1 mg IV PUSH Q4H PRN PRN Reason: ANXIETY Montelukast Sodium (Singulair Tab*) 10 mg PO BEDTIME [facility] Last Admin: 07/03/17 23:24 Dose: 10 mg Omeprazole (Prilosec Cap*) 20 mg PO DAILY@0730 [facility] Last Admin: 07/04/17 08:06 Dose: 20 mg Prednisone (Deltasone Tab*) 40 mg PO DAILY [facility] Last Admin: 07/04/17 08:49 Dose: 40 mg Rivaroxaban (Xarelto(*)) 20 mg PO DAILY [facility] Last Admin: 07/04/17 08:49 Dose: 20 mg Vital Signs - 8 hr 07/04/17 13:50 Pulse Rate 79 Oxygen Devices in Use Now: Nasal Cannula Appearance: NAD Neck: NL Appearance and Movements; NL JVP, Trachea Midline Respiratory: Symmetrical Chest Expansion and Respiratory Effort, Clear to Auscultation Cardiovascular: NL Sounds; No Murmurs; No JVD, RRR Abdominal: NL Sounds; No Tenderness; No Distention Extremities: No Edema Skin: No Rash or Ulcers Neurological: Alert and Oriented x 3, NL Sensation, NL Muscle Strength and Tone Nutrition: Taking PO's Result Diagrams: 07/04/17 08:39 07/04/17 08:39 Additional Lab and Data: Laboratory Results - last 24 hr 07/04/17 07/04/17 07/04/17 08:39 08:39 08:39 WBC 23.8 H RBC 2.16 L Hgb 8.9 L Hct 28 L MCV 130 H MCH 41 H MCHC 32 RDW 16 H Plt Count 389 MPV 10 Neut % (Auto) 81.7 Lymph % (Auto) 17.7 L [place] % (Auto) 0.1 Eos % (Auto) 0.3 Baso % (Auto) 0.2 Absolute Neuts (auto) 19.4 H Absolute Lymphs (auto) 4.2 Absolute Monos (auto) 0 Absolute Eos (auto) 0.1 Absolute Basos (auto) 0.1 Absolute Nucleated RBC 0 Nucleated RBC % 0 Sodium 135 Potassium 3.7 Chloride 104 Carbon Dioxide 25 Anion Gap 6 BUN 15 Creatinine 0.73 Est GFR ( Amer) 98.9 Est GFR (Non-Af Amer) 76.9 BUN/Creatinine Ratio 20.5 H Glucose 120 H Lactic Acid 0.9 Calcium 8.3 L Magnesium 1.8 L Influenza A (Rapid) Influenza B (Rapid) 07/04/17 09:21 WBC RBC Hgb Hct MCV MCH MCHC RDW Plt Count MPV Neut % (Auto) Lymph % (Auto) [place] % (Auto) Eos % (Auto) Baso % (Auto) Absolute Neuts (auto) Absolute Lymphs (auto) Absolute Monos (auto) Absolute Eos (auto) Absolute Basos (auto) Absolute Nucleated RBC Nucleated RBC % Sodium Potassium Chloride Carbon Dioxide Anion Gap BUN Creatinine Est GFR ( Amer) Est GFR (Non-Af Amer) BUN/Creatinine Ratio Glucose Lactic Acid Calcium Magnesium Influenza A (Rapid) Negative Influenza B (Rapid) Negative Microbiology and Other Data: Microbiology 07/03/17 12:30 Urine Urine Culture - Preliminary Citrobacter Freundii 07/04/17 09:10 Sputum Expectorated Gram Stain - Final 07/04/17 09:51 Urine Legionella Urinary Antigen - Final Negative Legionella 07/04/17 09:51 Urine Streptococcus pneumoniae Ag Screen - Final Positive S. Pneumo Antigen 07/04/17 09:00 Nasal Influenza Types A,B Antigen (LISA) - Final Specimen received for Influenza A/B Molecular testing 07/03/17 08:48 Blood Venous Aerobic Blood Culture - Preliminary No Growth Day 1 07/03/17 08:48 Blood Venous Anaerobic Blood Culture - Preliminary No Growth Day 1 07/03/17 08:53 Blood Venous Aerobic Blood Culture - Preliminary No Growth Day 1 07/03/17 08:53 Blood Venous Anaerobic Blood Culture - Preliminary No Growth Day 1 07/03/17 11:32 Nasal Nasal Screen MRSA (PCR)(LISA) - Final Mrsa Not Detected Assess/Plan/Problems-Billing Assessment: 77 yo female PMH pAfib on Xarelto, COPD with chronic hypoxic respiratory failure (2L day/night), living alone in senior housing p/w acute hypoxic respiratory failure, Afib RVR, leukocytosis, fever. Initially on Bipap in ICU. Sepsis 2/2 Strep Pna, improving on ceftriaxone. - Patient Problems (1) Sepsis Current Visit: Yes Status: Acute Comment: resolved. tachypnea, hypotension. leukocytosis. Source: Strep Pna pneumonia Lactic acidosis (2) Atrial fibrillation Current Visit: No Status: Acute Code(s): I48.91 - UNSPECIFIED ATRIAL FIBRILLATION SNOMED Code(s): 32622679 Comment: - Patient is in NSR now. - Continue Rivaroxaban. - add back atenolol tomorrow as pressures improve. (3) COPD (chronic obstructive pulmonary disease) Current Visit: No Status: Acute Priority: High Onset Date: 05/25/15 Code (s): J44.9 - CHRONIC OBSTRUCTIVE PULMONARY DISEASE, UNSPECIFIED SNOMED Code(s) : 15915573 Comment: Cont prednisone 40mg with taper. Not currently bronchospastic. Restart Spiriva start Dulera (at home on Symbicort) albuterol q6 continue home singulair (4) Chronic respiratory failure Current Visit: No Status: Acute Code(s): J96.10 - CHRONIC RESPIRATORY FAILURE, UNSP W HYPOXIA OR HYPERCAPNIA SNOMED Code(s): 42146538 Comment: Secondary to COPD O2 and steroid dependent(5mg), now exacerbated by Strep PNa (5) History of pulmonary embolus (PE) Current Visit: No Status: Acute Code(s): Z86.711 - PERSONAL HISTORY OF PULMONARY EMBOLISM SNOMED Code(s): 059443404 Comment: - Continue Rivaroxaban. (6) Hyperlipidemia Current Visit: No Status: Acute Code(s): E78.5 - HYPERLIPIDEMIA, UNSPECIFIED SNOMED Code(s): 47595321 Comment: Cont statin (7) Pneumonia Current Visit: No Status: Acute Code(s): J18.9 - PNEUMONIA, UNSPECIFIED ORGANISM SNOMED Code(s): 023822465 Comment: Cont ceftriaxone and levaquin. (8) HTN (hypertension) Current Visit: No Status: Chronic Code(s): I10 - ESSENTIAL (PRIMARY) HYPERTENSION SNOMED Code(s): 31009966 Comment: holding lisinopril. add back atenolol tomorrow - Monitor BP. Status and Disposition: medicine inpatient. Improving rapidly.
[2017-07-04] MEDS ORDERED: Tiotropium CAP.INH* CAP.INH/18 MCG (USE ORDER SET !) INH PRN (16:55)
[2017-07-04] MEDS ORDERED: Docusate CAP* 100 MG PO PRN (16:59)
[2017-07-04] MEDS ORDERED: guaiFENesin LIQ* 100 MG/5 ML UDC PO PRN (16:59)
[2017-07-04] MEDS: Mometasone/Formoter 200/5 MDI INH SCH (19:39)
[2017-07-04] MEDS: Atorvastatin* 10 MG TAB PO SCH (20:47)
[2017-07-04] MEDS: Montelukast Sodium TAB* 10 MG PO SCH (20:47)
[2017-07-05] MEDS: Albuterol/Ipratropium NEB.SOL* Albuterol 2.5 MG/Ipratropium 0.5 MG 3 ML INH SCH ×3 (00:56→13:40)
[2017-07-05] MEDS: Levothyroxine TAB* 112 MCG TAB PO SCH (05:07)
[2017-07-05 06:03] LABS: ABS Basophils 0 10^3/ul (0-0.2); ABS Eosinophils 0.1 10^3/ul (0-0.6); ABS Lymphocytes 3.7 10^3/ul (1.0-4.8); ABS Monocytes 0.6 10^3/ul (0-0.8); ABS Neutrophils 10.1 10^3/ul (1.5-7.7); ABS Nucleated RBC 0 10^3/ul; Eosinophil % 0.4 % (0-6); Hematocrit 27 % (35-47); Hemoglobin 8.9 g/dl (12.0-16.0); Lymphocyte % 25.5 % (25-47); Mean Corpuscular HGB Conc 33 g/dl (31-36); Mean Corpuscular Hemoglobin 43 pg (27-31); Mean Corpuscular Volume 129 fL (80-97); Mean Platelet Volume 10 um3 (7.4-10.4); Nucleated Red Blood Cells % 0; Platelet Count 367 10^3/ul (150-450); Red Cell Distribution Width 15 % (10.5-15); White Blood Count 14.5 10^3/ul (3.5-10.8)
[2017-07-05 06:09] LABS: EGFR Non-African American 82.1 (>60)
[2017-07-05] MEDS: Omeprazole CAP* 20 MG PO SCH (07:56)
[2017-07-05] MEDS: Mometasone/Formoter 200/5 MDI INH SCH (08:43)
[2017-07-05] MEDS ORDERED: Atenolol TAB* 25 MG PO SCH (09:00)
[2017-07-05] MEDS ORDERED: Cholecalciferol TAB* 1000 UNITS PO SCH (09:00)
[2017-07-05] MEDS ORDERED: Spiriva Inhaler DEVICE* 1 EACH DEVICE INH ONE (09:00)
[2017-07-05] MEDS ORDERED: HydroxyUREA CAP* 500 MG CAP PO SCH (09:00)
[2017-07-05] MEDS: Levofloxacin 500 MG IVPREMIX(* 500 MG/100 ML BAG IVPB SCH (09:15)
[2017-07-05] MEDS: predniSONE TAB* 20 MG PO SCH (09:16)
[2017-07-05] MEDS: FLUoxetine CAP* 20 MG PO SCH (09:16)
[2017-07-05] MEDS: Fluticasone NASAL SPRAY 50MCG* 16 gm SPRAY BTL BOTH NARES SCH (09:16)
[2017-07-05] MEDS: Rivaroxaban TAB(*) 20 MG TAB PO SCH (09:17)
[2017-07-05] MEDS: cefTRIAXone(*) 1 GM in NS 0.9% 50 ML* 50 ML IVPB SCH ×2 (11:57→14:33)
[2017-07-05] MEDS ORDERED: Levofloxacin TAB* 500 MG PO ONE (14:01)
[2017-07-05 17:33] VITALS: BP 186/72
[2017-07-06] MEDS ORDERED: Cyanocobalamin TAB* 500 MCG PO SCH (09:00)
--- NOTE | 2017-07-06 11:07 | DS ---
CC: Dr. Whitaker* DISCHARGE SUMMARY: DATE OF ADMISSION: 07/03/17 DATE OF DISCHARGE: 07/05/17 PRIMARY CARE PHYSICIAN: Dr. Whitaker. SCIENTIFIC ASSOCIATE: Dr. Ram. PRINCIPAL DIAGNOSES: 1. Streptococcus pneumoniae pneumonia. 2. Atrial fibrillation with rapid ventricular rate. SECONDARY DIAGNOSES: 1. Chronic obstructive pulmonary disease. 2. Atrial fibrillation. 3. History of transient ischemic attack. 4. Hypertension. 5. Hyperlipidemia. 6. Chronic anemia. 7. Thrombocytosis. 8. Hypothyroidism. DISCHARGE MEDICATIONS: 1. Imodium 2 mg p.o. t.i.d. p.r.n. diarrhea. 2. Tylenol 1000 mg p.o. q. 8 hours. 3. Vitamin B12, 1000 mcg p.o. every other day. 4. Zyrtec 10 mg p.o. daily. 5. Calcium plus D 1 tab p.o. daily. 6. Spiriva 1 puff inhaled daily p.r.n. shortness of breath. 7. Magnesium oxide 400 mg p.o. daily. 8. Poly-Iron 150 mg p.o. daily. 9. Omeprazole 20 mg p.o. daily. 10. Singulair 10 mg p.o. q.h.s. 11. Hydroxyurea 1500 mg p.o. daily. 12. Symbicort 160/4.5, two puffs inhaled twice daily. 13. Levothyroxine 112 mcg p.o. daily. 14. Fluoxetine 40 mg p.o. daily. 15. Lipitor 10 mg p.o. q.h.s. 16. Albuterol 1 neb inhaled q. 6 hours p.r.n. shortness of breath. 17. Ipratropium 1 neb inhaled t.i.d. p.r.n. shortness of breath. 18. Colace 100 to 200 mg p.o. b.i.d. p.r.n. constipation. 19. Combivent Respimat 1 puff inhaled t.i.d. p.r.n. shortness of breath. 20. Albuterol 2 puffs inhaled q. 4 hours p.r.n. shortness of breath. 21. Robitussin 10 mL p.o. 4 times daily p.r.n. cough. 22. Systane 1 drop to both eyes 4 times daily p.r.n. dryness. 23. Lisinopril 40 mg p.o. daily. 24. Ipratropium bromide 2 sprays to each nostril 3 times daily p.r.n. allergy symptoms. 25. Lasix 20 mg p.o. Sunday, Sunday, Sunday. 26. Flonase 2 squirts to both nostrils daily. 27. Multivitamin 1 tab p.o. daily. 28. Ativan 0.25 to 0.5 mg p.o. q.h.s. p.r.n. anxiety. 29. Vitamin D 1000 units p.o. daily. 30. Xarelto 20 mg p.o. daily. 31. Atenolol 25 mg p.o. daily. 32. Prednisone 40 mg p.o. daily x2 days and 30 mg x2 days, 20 mg x2 days, 10 mg x2 days then 5 mg daily. 33. Fosamax 70 mg p.o. q. Sunday. 34. Levofloxacin 500 mg p.o. daily x4 doses. HOSPITAL COURSE: Ms. Keita is a 77-year-old female who has a history of COPD , who presented to the emergency room with complaints of shortness of breath and was found to have possible community-acquired pneumonia and rapid atrial fibrillation. The patient was admitted to the intensive care unit for management. The patient's respiratory distress significantly improved after receiving Ativan. The patient was started on levofloxacin and ceftriaxone for community-acquired pneumonia coverage. She was started on higher dose steroids. She does take prednisone 5 mg daily at baseline. The patient has roughly improved over the course of the hospitalization. Her urinary antigen for strep pneumonia came back positive. I suspect the patient has a strep pneumoniae pneumonia. At this point, she feels that her breathing is stable and that she can manage what she needs to do at home. She states she has a significant amount of support at home. She will be discharged on Levaquin 500 mg daily for another 4 doses as well as a short prednisone taper. The patient has numerous chronic medical conditions. She is being maintained on all of her usual home medication including Xarelto for her history of atrial fibrillation. She will also continue on her atenolol 25 mg daily. At this point, she is rate controlled. Of note, the patient's hemoglobin on admission was 11.1. It trended down to 8.9 on the day after admission, however, was stable on the day of discharge at 8.9. The patient is on hydroxyurea for history of thrombocytosis. I questioned if the hydroxyurea may be leading to her anemia. The patient states that she has a followup appointment with Dr. Ram this month and she will follow up with him. She has been instructed to return to the emergency room if she notices any black stools or bright blood per rectum. She states that she has not noticed any of this in the hospital. FOLLOWUP CONCERNS: The patient is being discharged home today, 07/05/17. She is to follow up with Kim Whitaker MD in the next 4 to [address] Ram at her already scheduled appointment. CONDITION ON DISCHARGE: Stable. DIET: Heart healthy. ACTIVITY: Activity level is as tolerated. TIME SPENT: Thirty-five minutes were spent discharging this patient. [id number]/CPS #: [id number] MTDD
== END 2017-07-05 16:24 | disposition home or self-care (01) | DRG 871 ==
LOC: ED 08:12 → ICU 11:13 → MEDTELE 21:21
PROVIDERS: ADMIT Internal Medicine Critical Care Medicine; ATTEND Hospitalist
DX: A41.9 Sepsis, unspecified organism (principal); J13 Pneumonia due to Streptococcus pneumoniae; J96.21 Acute and chronic respiratory failure with hypoxia; J44.0 Chronic obstructive pulmonary disease with (acute) lower respiratory infection; I95.9 Hypotension, unspecified; I48.0 Paroxysmal atrial fibrillation; D64.9 Anemia, unspecified; D47.3 Essential (hemorrhagic) thrombocythemia; I10 Essential (primary) hypertension; E78.5 Hyperlipidemia, unspecified; E03.9 Hypothyroidism, unspecified; K21.9 Gastro-esophageal reflux disease without esophagitis; M19.90 Unspecified osteoarthritis, unspecified site; F32.9 Major depressive disorder, single episode, unspecified; Z98.51 Tubal ligation status; Z98.49 Cataract extraction status, unspecified eye; Z99.81 Dependence on supplemental oxygen; Z86.73 Personal history of transient ischemic attack (TIA), and cerebral infarction without residual deficits; Z79.01 Long term (current) use of anticoagulants; Z86.711 Personal history of pulmonary embolism; Z88.1 Allergy status to other antibiotic agents; Z88.8 Allergy status to other drugs, medicaments and biological substances; Z87.01 Personal history of pneumonia (recurrent); Z82.49 Family history of ischemic heart disease and other diseases of the circulatory system; Z83.3 Family history of diabetes mellitus; Z87.891 Personal history of nicotine dependence
CPT/HCPCS: 36415; 36600; 71045; 80048; 80053; 81003; 81015; 82550; 82553; 82803; 83605; 83690; 83735; 83880; 84443; 84484; 85025; 85379; 85610; 85730; 86140; 87040; 87070; 87077; 87086; 87186; 87205; 87502; 87641; 87899; 93005; 94640; 94760; 99285; A9270-GY; J0696; J1956; J2060; J2930; J3475; J7512

== ENCOUNTER 2017-10-05 05:27 | Inpatient (IN) | payer MEDICARE ==
[2017-10-05] MEDS ORDERED: Albuterol/Ipratropium NEB.SOL* Albuterol 2.5 MG/Ipratropium 0.5 MG 3 ML INH ONE (05:34)
[2017-10-05] MEDS ORDERED: methylPREDNISolone 125 MG* 2 ML VIAL IV ONE (05:34)
[2017-10-05] MEDS ORDERED: Magnesium Sulfate 2 GM IV* 2 GM/50 ML BAG IVPB ONE (05:37)
[2017-10-05] MEDS: Albuterol 2.5 MG/3 ML NEB.SOL* (0.083%) INH SCH ×2 (05:57→05:58)
[2017-10-05] MEDS ORDERED: Ondansetron INJ* 2 MG/ML VIAL IV ONE (06:03)
[2017-10-05 06:22] LABS: INR 1.41 (0.77-1.02)
[2017-10-05] MEDS ORDERED: Acetaminophen TAB* 325 MG PO ONE (06:22)
[2017-10-05 06:26] LABS: Hematocrit 32 % (35-47); Hemoglobin 9.7 g/dl (12.0-16.0); Mean Corpuscular HGB Conc 31 g/dl (31-36); Mean Corpuscular Hemoglobin 37 pg (27-31); Mean Corpuscular Volume 121 fL (80-97); Platelet Count 1036 10^3/ul (150-450); Red Blood Count 2.61 10^6/ul (4.0-5.4); Red Cell Distribution Width 17 % (10.5-15); White Blood Count 42.7 10^3/ul (3.5-10.8)
[2017-10-05] MEDS ORDERED: Diltiazem IV* 5 MG/ML 5 ML VIAL (for loading dose/IV Push) (25 MG) IV SLOW PU ONE (06:26)
[2017-10-05 06:32] LABS: EGFR Non-African American 76.9 (>60)
[2017-10-05] MEDS ORDERED: Levofloxacin 750 MG IVPREMIX(* 750 MG/150 ML BAG IVPB ONE (06:44)
--- NOTE | 2017-10-05 06:57 | ED ---
Jerardo Bates Tiffany, scribcoreen for Stormy Vinson MD on 10/05/17 at 0539 . Shortness of Breath - HPI Summary HPI Summary: 77 year old F BIBA to [facility] complains of shortness of breath since 04:00 today. Symptoms aggravated by nothing. Symptoms alleviated by nothing. Pt given nebulizer treatment en route. Hx COPD. - History of Current Complaint Time Seen by Provider: 10/05/17 05:33 Hx Obtained From: Patient Onset/Duration: Lasting Hours - 1.5 hr, Still Present Timing: Constant Aggrevating Factors: Nothing Alleviating Factors: Nothing - Allergy/Home Medications Allergies/Adverse Reactions: Allergies Allergy/AdvReac Type Severity Reaction Status Date / Time amlodipine [From Norvasc] Allergy See Comment Verified 10/05/17 05:36 azithromycin [From Zithromax] Allergy Diarrhea Verified 10/05/17 05:36 clarithromycin [From Biaxin] Allergy Hives Verified 10/05/17 05:36 garlic Allergy Diarrhea Verified 10/05/17 05:36 Home Medications: Home Medications Hydroyurea 1,500 mg PO DAILY 10/05/17 [History Confirmed 10/05/17] PMH/Surg Hx/FS Hx/Imm Hx Previously Healthy: No Endocrine/Hematology History: Reports: Hx Anticoagulant Therapy - coumadin, Hx Blood Disorders, Hx Thyroid Disease - HYPOTHYROIDISM, Hx Anemia - PERNICIOUS ANEMIA, Other Endocrine/Hematological Disorders - 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 Denies: Hx Blood Transfusions, Hx Bone Marrow Disease, Hx Diabetes, Hx Systemic Lupus Erythematosus, Hx Unexplained Bleeding Cardiovascular History: Reports: Hx Atrial Fibrillation, Hx Hypercholesterolemia , Hx Hypertension, Other Cardiovascular Problems/Disorders - A FIB Denies: Hx Pacemaker/ICD Respiratory History: Reports: Hx Asthma, Hx Chronic Bronchitis, Hx Chronic Obstructive Pulmonary Disease (COPD) - ON HOME O2-2L, Hx Pneumonia, Hx Pulmonary Embolism, Other Respiratory Problems/Disorders - PT STATES SHE HAS A HX OF A BLOOD CLOT GI History: Reports: Hx Gastroesophageal Reflux Disease, Other GI Disorders - gastroenteritis History: Denies: Hx Dialysis, Hx Renal Disease Musculoskeletal History: Reports: Hx Arthritis - OA, Other Musculoskeletal History - osteo-arthritis Sensory History: Reports: Hx Contacts or Glasses Denies: Hx Cataracts - bilaterally removed, Hx Hearing Aid Opthamlomology History: Reports: Hx Contacts or Glasses Denies: Hx Cataracts - bilaterally removed Neurological History: Denies: Hx Dementia, Hx Seizures Psychiatric History: Reports: Hx Depression, Other Psychiatric Issues/Disorders - takes prozac to deter from smoking Denies: Hx Panic Disorder, Hx Substance Abuse - Cancer History Cancer Type, Location and Year: arthritis Hx Chemotherapy: No Hx Radiation Therapy: No - Surgical History Surgery Procedure, Year, and Place: Tubal ligation, pt states 31 years ago. Oral surgery, pt states when she was a teenager. CATARACT SURGERY Hx Anesthesia Reactions: No - difficulty reversing or "waking up." - Immunization History Date of Tetanus Vaccine: Unk Date of Influenza Vaccine: Fall 2013 Infectious Disease History: No Infectious Disease History: Denies: Hx Clostridium Difficile, Hx Hepatitis, Hx Human Immunodeficiency Virus (HIV), Hx Shingles, Hx Tuberculosis, Traveled Outside the [place] in Last 30 Days - Family History Known Family History: Positive: Cardiac Disease, Hypertension, Diabetes - Social History Alcohol Use: None Hx Substance Use: No Substance Use Type: Reports: None Hx Tobacco Use: Yes Smoking Status (MU): Former Smoker Type: Cigarettes Have You Smoked in the Last Year: No Review of Systems Negative: Fever Positive: Shortness Of Breath All Other Systems Reviewed And Are Negative: Yes Physical Exam - Summary Physical Exam Summary: VITAL SIGNS: Reviewed. GENERAL: Patient is a well-developed and nourished female who is lying comfortable in the stretcher. Patient is not in any acute respiratory distress. HEAD AND FACE: No signs of trauma. No ecchymosis, hematomas or skull depressions. No sinus tenderness. EYES: PERRLA, EOMI x 2, No injected conjunctiva, no nystagmus. EARS: Hearing grossly intact. Ear canals and tympanic membranes are within normal limits. MOUTH: Oropharynx within normal limits. NECK: Supple, trachea is midline, no adenopathy, no JVD, no carotid bruit, no c- spine tenderness, neck with full ROM. CHEST: Symmetric, no tenderness at palpation LUNGS: Decreased breath sounds bilaterally. Rales over bases. CVS: Tachycardic and irregular. ABDOMEN: Soft, non-tender. No signs of distention. No rebound no guarding, and no masses palpated. Bowel sounds are normal. EXTREMITIES: FROM in all major joints, no edema, no cyanosis or clubbing. NEURO: Alert and oriented x 3. No acute neurological deficits. Speech is normal and follows commands. SKIN: Dry and warm Triage Information Reviewed: Yes Vital Signs On Initial Exam: Initial Vitals Temp Pulse Resp BP Pulse Ox 100.2 F 118 22 172/81 91 10/05/17 05:32 10/05/17 05:32 10/05/17 05:32 10/05/17 05:32 10/05/17 05:32 Vital Signs Reviewed: Yes Diagnostics - Vital Signs Vital Signs Temp Pulse Resp BP Pulse Ox 10/05/17 05:32 100.2 F 118 22 172/81 91 - Laboratory Result Diagrams: 10/05/17 05:51 10/05/17 05:51 Lab Statement: Any lab studies that have been ordered have been reviewed, and results considered in the medical decision making process. - Radiology CXR Radiology Interpretation Completed By: ED Physician - Bilateral base infiltrate. Pending official report. - EKG 06:19 Cardiac Rate: Tachycardia EKG Rhythm: Atrial Fibrillation EKG Interpretation: PVCs Re-Evaluation - Re-Evaluation First Eval Re-Evaluation Time: 06:55 Comment: Discussed admission plan. Pt agreeable to admission to [facility]. Course/Dx - Course Course Of Treatment: 77 year old F BIBA to [facility] complains of shortness of breath since 04:00 today. Pt given breathing treatment in ED course. Bloodwork and imaging obtained. CXR shows bilateral base infiltrate. Pt will be admitted to [facility], for further evaluation. - Diagnoses Provider Diagnoses: COPD (chronic obstructive pulmonary disease), Pneumonia - Physician Notifications Discussed Care of Patient With: Milly Timmons Time Discussed With Above Provider: 06:49 Instructed by Provider To: Other - [facility], agrees to admit pt. Discharge - Sign-Out/Discharge Documenting (check all that apply): Discharge/Admit/Transfer - Discharge Plan Condition: Fair Disposition: ADMITTED TO [facility] Referrals: Kim Whitaker MD [Primary Care Provider] - The documentation as recorded by the Jerardo mcclain Tiffany accurately reflects the service I personally performed and the decisions made by me, Stormy Vinson MD.
[2017-10-05 07:01] LABS: Monocytes % 7 % (0-7)
--- NOTE | 2017-10-05 08:16 | RAD ---
INDICATION: Shortness of breath. COMPARISON: Comparison is made with prior chest x-ray studies from November 20, 2016 and July 03, 2017. TECHNIQUE: Dual-energy PA and lateral views of the chest were obtained. FINDINGS: The heart is within normal limits in size. Mediastinal and hilar contours appear within normal limits. The lungs are hyperinflated consistent with chronic obstructive pulmonary disease. There are patchy infiltrates at both lung bases right greater than left. No pleural effusion is seen. IMPRESSION: SMALL BIBASILAR INFILTRATES.
[2017-10-05] MEDS ORDERED: Tiotropium CAP.INH* CAP.INH/18 MCG (USE ORDER SET !) INH PRN (08:32)
[2017-10-05] MEDS ORDERED: Loperamide CAP* 2 MG PO PRN (08:32)
[2017-10-05] MEDS ORDERED: Albuterol 2.5 MG/3 ML NEB.SOL* (0.083%) INH PRN ×2 (08:32→08:37)
[2017-10-05] MEDS ORDERED: Docusate CAP* 100 MG PO PRN (08:32)
[2017-10-05] MEDS ORDERED: SYSTANE BOTH EYES PRN (08:32)
[2017-10-05] MEDS ORDERED: guaiFENesin LIQ* 100 MG/5 ML UDC PO PRN (08:32)
[2017-10-05] MEDS ORDERED: EYE BOTH EYES PRN (08:32)
[2017-10-05] MEDS ORDERED: LORazepam TAB(*) 0.5 MG PO PRN (08:32)
[2017-10-05] MEDS ORDERED: IPRATROPIUM BROMIDE NASAL PRN (08:32)
[2017-10-05] MEDS ORDERED: Diltiazem DRIP* 100 MG/100 ML ADDV.BAG IVPB ONE (08:39)
[2017-10-05] MEDS ORDERED: HYDROXYUREA 1000 MG PO SCH (09:00)
[2017-10-05] MEDS ORDERED: Calcium Carbonate TAB* 1250 MG (CALCIUM 500 MG) PO SCH (09:00)
--- NOTE | 2017-10-05 09:24 | PN ---
Progress Note - Progress Note Date of Service: 10/05/17 SOAP: Subjective: patient well known to our service with a history of CALR positive essential thrombocythemia, managed over time with varying doses of hydrea, now presenting with PNA and a COPD exacerbation with marked leukocytosis and thrombocytosis. Notably her hydrea was recently (August) decreased to 1000 mg for anemia and fatigue. she denies any bleeding currently. feels better than when she arrived to the ER now that given steroids. Objective: Vital Signs Temp Pulse Resp BP Pulse Ox 97.9 F 108 30 117/63 94 10/05/17 09:18 10/05/17 09:18 10/05/17 09:18 10/05/17 09:18 10/05/17 09:18 sitting up in mild respiratory distress perr eomi op dry distant breath sounds tachycardic soft obese nt no obvious hsm no le edema A+Ox 3, nonfocal neurological exam Laboratory Results - last 24 hr 10/05/17 10/05/17 10/05/17 05:51 05:51 05:51 WBC 42.7 H RBC 2.61 L Hgb 9.7 L Hct 32 L MCV 121 H MCH 37 H MCHC 31 RDW 17 H Plt Count 1036 H MPV 10.0 Neut % (Auto) Not Reportable Lymph % (Auto) Not Reportable [place] % (Auto) Not Reportable Eos % (Auto) Not Reportable Baso % (Auto) Not Reportable Absolute Neuts (auto) Not Reportable Absolute Lymphs (auto) Not Reportable Absolute Monos (auto) Not Reportable Absolute Eos (auto) Not Reportable Absolute Basos (auto) Not Reportable Absolute Nucleated RBC Not Reportable Immature Gran % 3 Neutrophils % 55 Band Neutrophils % 1 Lymphocytes % 35 Monocytes % 7 Eosinophils % 0 Basophils % 0 Metamyelocytes % 1 Myelocytes % 1 Nucleated RBC % Not Reportable Abs Neuts (Manual) 23.5 H Abs Lymphs (Manual) 14.9 H Abs Monocytes (Manual) 3.0 H Absolute Eos (Manual) 0 Abs Basophils (Manual) 0 Smudge Cells Present Normal RBC Morphology Not Reportable Macrocytosis 2+ INR (Anticoag Therapy) APTT Sodium 141 Potassium 3.6 Chloride 104 Carbon Dioxide 29 Anion Gap 8 BUN 10 Creatinine 0.73 Est GFR ( Amer) 98.9 Est GFR (Non-Af Amer) 76.9 BUN/Creatinine Ratio 13.7 Glucose 133 H Lactic Acid 1.2 Calcium 9.1 Total Bilirubin 0.60 AST 19 ALT 9 Alkaline Phosphatase 56 Troponin I 0.01 C-Reactive Protein 47.63 H B-Natriuretic Peptide Total Protein 6.8 Albumin 3.9 Globulin 2.9 Albumin/Globulin Ratio 1.3 10/05/17 10/05/17 05:51 05:51 WBC RBC Hgb Hct MCV MCH MCHC RDW Plt Count MPV Neut % (Auto) Lymph % (Auto) [place] % (Auto) Eos % (Auto) Baso % (Auto) Absolute Neuts (auto) Absolute Lymphs (auto) Absolute Monos (auto) Absolute Eos (auto) Absolute Basos (auto) Absolute Nucleated RBC Immature Gran % Neutrophils % Band Neutrophils % Lymphocytes % Monocytes % Eosinophils % Basophils % Metamyelocytes % Myelocytes % Nucleated RBC % Abs Neuts (Manual) Abs Lymphs (Manual) Abs Monocytes (Manual) Absolute Eos (Manual) Abs Basophils (Manual) Smudge Cells Normal RBC Morphology Macrocytosis INR (Anticoag Therapy) 1.41 H APTT 38.3 H Sodium Potassium Chloride Carbon Dioxide Anion Gap BUN Creatinine Est GFR ( Amer) Est GFR (Non-Af Amer) BUN/Creatinine Ratio Glucose Lactic Acid Calcium Total Bilirubin AST ALT Alkaline Phosphatase Troponin I C-Reactive Protein B-Natriuretic Peptide 135 H Total Protein Albumin Globulin Albumin/Globulin Ratio Acetaminophen (Tylenol Tab*) 975 mg PO Q8H PRN PRN Reason: pain/fever Albuterol (Ventolin Hfa Inhaler*) 2 puff INH Q4H PRN PRN Reason: SOB/WHEEZING Albuterol (Ventolin 2.5 Mg/3 Ml Neb.Ijeoma*) 2.5 mg INH Q4H PRN PRN Reason: SHORTNESS OF BREATH Atenolol (Tenormin Tab*) 25 mg PO DAILY SONJA Atorvastatin Calcium (Lipitor*) 10 mg PO BEDTIME SONJA Budesonide/Formoterol Fumarate (Symbicort 160/4.5 (Nf)) 2 puff INH BID SONJA PRN Reason: Protocol Cetirizine HCl (Zyrtec*) 10 mg PO DAILY SONJA PRN Reason: Protocol Cholecalciferol (Vitamin D Tab*) 1,000 units PO DAILY SNOJA Cyanocobalamin (Vitamin B12 Tab*) 1,000 mcg PO EVERY OTHER DAY SONJA Docusate Sodium (Colace Cap*) 200 mg PO BID PRN PRN Reason: CONSTIPATION Fluoxetine HCl (Prozac Cap*) 40 mg PO DAILY [facility] Fluticasone Propionate (Flonase Nasal [place] 50mcg*) 2 spray BOTH NARES DAILY SONJA Guaifenesin (Robitussin*) 10 ml PO QID PRN PRN Reason: COUGH Levofloxacin/Dextrose (Levaquin 750 Mg Ivpremix(*)) 750 mg in 150 mls @ 100 mls /hr IVPB Q24H SONJA Diltiazem HCl (Cardizem Iv Advan*) 100 mg in 100 mls @ 5 mls/hr IVPB ONCE ONE; 5 MG/HR PRN Reason: Protocol Stop: 10/06/17 04:38 Levothyroxine Sodium (Synthroid Tab*) 112 mcg PO DAILY SONJA Lisinopril (Prinivil Tab*) 40 mg PO DAILY SONJA Loperamide HCl (Imodium Cap*) 2 mg PO TID PRN PRN Reason: DIARRHEA Lorazepam (Ativan Tab(*)) 0.5 mg PO BEDTIME PRN PRN Reason: ANXIETY Magnesium Oxide (Magox 400 Tab*) 400 mg PO DAILY [facility] Methylprednisolone Sodium Succinate (Solu-Medrol 40 Mg) 40 mg IV Q8H SONJA Montelukast Sodium (Singulair Tab*) 10 mg PO BEDTIME SONJA Multivitamins/Minerals (Theragran/Minerals Tab*) 1 tab PO DAILY SONJA Non-Formulary Medication (Calcium Carbonate/Vitamin D3 [Calcium 600-Vit D3 200 Tablet]) 1 tab PO DAILY SONJA Non-Formulary Medication (Hydroyurea) 1,000 mg PO DAILY SONJA Non-Formulary Medication (Ipratropium [place] [Ipratropium [place]]) 2 spray NASAL TID PRN PRN Reason: Allergy Symptoms Non-Formulary Medication (Iron Ps Complex/B12/Folic Acid [Poly-Iron 150 Forte Capsule]) 150 mg PO DAILY SOJNA Non-Formulary Medication (Propylene Glycol/Peg 400/Pf [Systane 0.3-0.4% Eye Drops]) 1 drop BOTH EYES QID PRN PRN Reason: DRY EYE Omeprazole (Prilosec Cap*) 20 mg PO DAILY SONJA Rivaroxaban (Xarelto(*)) 20 mg PO DAILY SONJA Tiotropium [place] (Spiriva Cap.Inh*) 1 cap INH DAILY PRN PRN Reason: SHORTNESS OF BREATH Assessment: 77 yo F w CALR positive ET on hydrea, intermittent RITO requiring IV iron without source of bleed on thorough GI evaluation, now presenting with pneumonia and found to have marked leukocytosis and thrombocytosis. I suspect that her leukocytosis is an exaggerated response to her infection given her underlying myeloproliferative neoplasm. In terms of the increasing platelet count, I would go back up on her hydrea to 1500 mg. This may drop her hemoglobin, but it is difficult not to go up with levels that high. I will also repeat her iron studies (though she was iron replete in July).
[2017-10-05] MEDS ORDERED: HydroxyUREA CAP* 500 MG CAP PO SCH (09:30)
[2017-10-05] MEDS: Omeprazole CAP* 20 MG PO SCH (10:42)
[2017-10-05] MEDS: Atenolol TAB* 25 MG PO SCH (10:42)
[2017-10-05] MEDS: Lisinopril TAB* 10 MG PO SCH (10:42)
[2017-10-05] MEDS: Cyanocobalamin TAB* 500 MCG PO SCH (10:42)
[2017-10-05] MEDS: Rivaroxaban TAB(*) 20 MG TAB PO SCH (10:43)
[2017-10-05] MEDS: Cholecalciferol TAB* 1000 UNITS PO SCH (10:43)
[2017-10-05] MEDS: FLUoxetine CAP* 20 MG PO SCH (10:43)
[2017-10-05] MEDS: Levothyroxine TAB* 112 MCG TAB PO SCH (10:43)
[2017-10-05] MEDS: Cetirizine* 10 MG TAB PO SCH (10:43)
[2017-10-05] MEDS: Magnesium Oxide TAB* 400 MG PO SCH (10:43)
[2017-10-05] MEDS: Multivitamins/Minerals TAB PO SCH (10:43)
[2017-10-05] MEDS: methylPREDNISolone SOD 40 MG* 1 ML VIAL IV SCH ×2 (10:44→16:18)
[2017-10-05] MEDS: Fluticasone NASAL SPRAY 50MCG* 16 gm SPRAY BTL BOTH NARES SCH (10:44)
[2017-10-05] MEDS: Mometasone/Formoter 200/5 MDI INH SCH ×2 (13:06→19:40)
[2017-10-05] MEDS: HydroxyUREA CAP* 500 MG CAP PO SCH (13:13)
[2017-10-05] MEDS: Cholecalciferol TAB* 400 UNIT PO SCH (13:13)
[2017-10-05] MEDS: Calcium Carbonate TAB* 1250 MG (CALCIUM 500 MG) PO SCH (13:14)
--- NOTE | 2017-10-05 13:49 | RAD ---
INDICATION: Right third toe trauma COMPARISON: None TECHNIQUE: AP, lateral, and oblique views were obtained. FINDINGS: There is minor first MTP joint osteoarthritic change. There is no significant hallux valgus deformity. There is no acute fracture. The remaining joint spaces are maintained. There is a moderate-sized plantar calcaneal spur. IMPRESSION: NO ACUTE BONY FINDINGS.
[2017-10-05] MEDS: Acetaminophen TAB* 325 MG PO PRN ×2 (14:35→21:40)
--- NOTE | 2017-10-05 14:55 | HP ---
CC: Dr. Kim Whitaker; Dr. Ram HISTORY AND PHYSICAL: DATE OF ADMISSION: 10/05/17 TIME OF EVALUATION: 8 a.m. PRIMARY CARE PROVIDER: Dr. Kim Whitaker. VISUAL DEVELOPER: Dr. Ram. CHIEF COMPLAINT: Shortness of breath. HISTORY OF PRESENT ILLNESS: Ms. Keita is a 77-year-old lady with a past medical history of COPD, o n home oxygen 3 L at baseline, atrial fibrillation, TIA, hypertension, hyperlipidemia, hypothyroidism , myeloproliferative disorder with leukocytosis and thrombocytosis, CALR positive on Hydrea, who pres ents to the emergency room with complaints of shortness of breath. The patient states that over the past week, she has been more short of breath and has had more cough but with no production. She was using her inhaler more but her symptoms persisted. In October is the a nniversary of her son's passing and she states that she became very emotional last night and was cryi ng when her symptoms became worse. So, she came to the emergency room for further evaluation. She denies fever, chills but she did have the low-grade temperature in the emergency room of 100.2. She denies chest pain, nausea, vomiting, abdominal pain, urinary complaints. PAST MEDICAL HISTORY: 1. COPD, on home oxygen at 2 L. 2. Atrial fibrillation. 3. TIA. 4. Hypertension. 5. Hyperlipidemia. 6. Hypothyroidism. 7. Recent admission in July 2017 with pneumococcal pneumonia, myeloproliferative disorder, CALR pos itive with leukocytosis and thrombocytosis, being treated with Hydrea. MEDICATION LIST: 1. Acetaminophen 1000 mg p.o. q.8 hours. 2. Albuterol 2.5 mg nebulized q.6 hours p.r.n. shortness of breath. 3. Albuterol HFA 2 puffs inhaled q.4 hours p.r.n. shortness of breath. 4. Combivent Respimat 1 puff inhaled t.i.d. as needed for shortness of breath. 5. Alendronate 70 mg p.o. every Sunday. 6. Atenolol 25 mg p.o. daily. 7. Atorvastatin 10 mg p.o. at bedtime. 8. Symbicort 160/4.5 two puffs inhaled b.i.d. 9. Calcium plus vitamin D one tablet p.o. daily. 10. Cetirizine 10 mg p.o. daily. 11. Cholecalciferol 1000 units p.o. daily. 12. Cyanocobalamin 1000 mcg p.o. every other day. 13. Colace 100 to 200 mg p.o. b.i.d. as needed for constipation. 14. Fluoxetine 40 mg p.o. daily. 15. Fluticasone nasal spray 50 mcg 2 sprays to both nares daily. 16. Furosemide 20 mg p.o. Mondays, Wednesdays, and Fridays. 17. Guaifenesin 10 mL p.o. q.i.d. as needed for cough. 18. Hydrea 1500 mg p.o. daily. 19. Atrovent 0.5 mg nebulized t.i.d. p.r.n. shortness of breath. 20. Ipratropium bromide 2 sprays nasal t.i.d. as needed for allergy symptoms. 21. Poly-Iron 150 mg p.o. daily. 22. Levothyroxine 112 mcg p.o. daily. 23. Lisinopril 40 mg p.o. daily. 24. Loperamide 2 mg p.o. t.i.d. as needed for diarrhea. 25. Lorazepam 0.25 to 0.5 mg p.o. at bedtime as needed for anxiety. 26. Magnesium oxide 400 mg p.o. daily. 27. Montelukast 10 mg p.o. at bedtime. 28. Multivitamin 1 tablet p.o. daily. 29. Omeprazole 20 mg p.o. daily. 30. Prednisone 5 mg p.o. daily. 31. Systane 1 drop to both eyes q.i.d. as needed for dry eye. 32. Rivaroxaban 10 mg p.o. daily. 33. Spiriva 1 capsule inhaled daily as needed for shortness of breath. ALLERGIES: With AMLODIPINE, the patient had elevated liver enzymes; with AZITHROMYCIN, the patient h ad diarrhea; with CLARITHROMYCIN, the patient had hives; and with GARLIC, the patient also has diarrh ea. FAMILY HISTORY: Mother had acute lymphocytic leukemia. Father had CVA and CAD. SOCIAL HISTORY: The patient quit smoking more than 20 years ago. Denies alcohol use. She is a wido w, lives in [place]. Surrogate decision maker is her daughter, Christina Sosa, phone number is [phone]. REVIEW OF SYSTEMS: A 14-point review of systems was performed and all the pertinent negatives and po sitives are in the HPI. PHYSICAL EXAMINATION GENERAL: The patient is a pleasant elderly lady, lying in the ED stretcher, in no acute distress. VITAL SIGNS: Temperature 97.9, heart rate is 108, respiratory rate is 30, oxygen saturation is 95% o n 8 L nasal cannula, blood pressure is 117/63. HEENT: Pupils are equal. Moist mucous membranes. CHEST: Breath sounds present bilaterally with bilateral wheezes and rhonchi. CVS: Normal S1, S2. Irregularly irregular, tachycardic. ABDOMEN: Soft. Bowel sounds are present. EXTREMITIES: No edema. The patient has some purple discoloration to her right hallux and third toe that she states happened after her computer fell on her foot. Good pulses bilaterally. She can move the right foot toes, and sensation is intact and she has good capillary refill. NEURO: She is alert, awake, oriented x3. Able to move all 4 extremities. LABORATORY AND IMAGING DATA: The patient had a CBC that showed WBC of 42.7, hemoglobin of 9.7, roseann tocrit of 32, platelets of with 55% neutrophils, 35% lymphocytes, 1% bands. INR is 1.4. Chem istry showed a sodium of 141, potassium 3.6, chloride of 104, bicarb of 29, BUN of 10, creatinine of 0.7, glucose of 133, lactic acid of 1.2, calcium of 9.1. LFTs showed an AST of 19, ALT of 9, total b ilirubin of 0.6. Troponin 0.01. CRP is 47. Chest x-ray showed small bibasilar infiltrates. EKG showed sinus tachycardia at 103 beats per minute with no ST-T changes. ASSESSMENT AND PLAN: Ms. 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 1. Chronic obstructive pulmonary disease exacerbation secondary to bronchitis. The patient's bibasil ar infiltrates looked more like atelectasis than true pneumonia at this point. She will be admitted to the intensive care unit for her respiratory failure with hypoxia and increasing oxygen requirement s. Cultures were sent in the emergency room and the results will be followed. We are going to yaakov nue levofloxacin, methylprednisolone, and bronchodilators and try to titrate her oxygen now. 2. CALR positive essential thrombocytosis. The case was discussed with Hematology (Dr. Paniagua). The patient has a history of iron deficiency anemia requiring IV iron without a source of bleed found , and she was on 1500 mg of Hydrea and that dose was reduced due to her anemia. So we feel that her leukocytosis and thrombocytosis are exaggerated response to her infection and also the fact that her Hydrea dose was reduced. Her recommendation was to increase her Hydrea dose back to 1500 mg daily, a nd this may drop her hemoglobin, but it is difficult not to increase the dose with WBCs and platelets so high. 3. Atrial fibrillation. The patient is in atrial fibrillation with rapid ventricular rate at this t nona. She will be started on a Cardizem drip and we are going to continue her atenolol. 4. Right foot trauma. The patient has some discoloration of her right hallux and third toe that she says is not tender, and she has full range of motion and sensation is intact. She attributes it to her computer falling on her foot. I am going to check a foot x-ray to rule out fracture. 5. DVT prophylaxis. The patient has a score of 6 on the DVT Prophylaxis Risk Assessment Guide and s he is already on Xarelto. 6. Code status is full. TIME SPENT: Approximately 45 minutes were spent with patient's family interview, medical records rev iew, physical examination to complete this admission, more than half of this time was spent face-to-f junior with patient and coordination of care. [id number]/[facility] #: [id number]
[2017-10-05] MEDS: Albuterol HFA INHALER* 8 gm MDI INH PRN (19:41)
[2017-10-05] MEDS ORDERED: Furosemide IV* 10 MG/ML 2 ML VIAL (20 MG) IV ONE (20:09)
--- NOTE | 2017-10-05 20:10 | PN ---
Progress Note - Progress Note Date of Service: 10/05/17 Note: Cross cover note: Usually takes PO lasix 20 TID Feeling increasingly SOB At 4L o2 (home rate) 1x lasix 20IV now
[2017-10-05] MEDS ORDERED: Furosemide IV* 10 MG/ML 2 ML VIAL (20 MG) ONE (20:11)
[2017-10-05] MEDS: FOLIC ACID PO SCH (20:16)
[2017-10-05] MEDS: IRON PS COMPLEX PO SCH (20:16)
[2017-10-05] MEDS: B12 PO SCH (20:16)
[2017-10-05] MEDS: Montelukast Sodium TAB* 10 MG PO SCH (20:17)
[2017-10-05] MEDS: Atorvastatin* 10 MG TAB PO SCH (20:17)
[2017-10-06] MEDS: methylPREDNISolone SOD 40 MG* 1 ML VIAL IV SCH ×3 (01:40→18:17)
[2017-10-06] MEDS: Levothyroxine TAB* 112 MCG TAB PO SCH (06:02)
[2017-10-06] MEDS: Levofloxacin 750 MG IVPREMIX(* 750 MG/150 ML BAG IVPB SCH (07:59)
[2017-10-06] MEDS: Omeprazole CAP* 20 MG PO SCH (08:09)
[2017-10-06 08:28] LABS: ABS Basophils 0.4 10^3/ul (0-0.2); ABS Eosinophils 0 10^3/ul (0-0.6); ABS Lymphocytes 12.7 10^3/ul (1.0-4.8); ABS Monocytes 0.5 10^3/ul (0-0.8); ABS Neutrophils 38.3 10^3/ul (1.5-7.7); ABS Nucleated RBC 0.1 10^3/ul; Eosinophil % 0 % (0-6); Hematocrit 31 % (35-47); Hemoglobin 9.6 g/dl (12.0-16.0); Lymphocyte % 24.5 % (25-47); Mean Corpuscular HGB Conc 31 g/dl (31-36); Mean Corpuscular Hemoglobin 38 pg (27-31); Mean Corpuscular Volume 121 fL (80-97); Mean Platelet Volume 10.3 um3 (7.4-10.4); Nucleated Red Blood Cells % 0.1; Platelet Count 902 10^3/ul (150-450); Red Blood Count 2.57 10^6/ul (4.0-5.4); Red Cell Distribution Width 17 % (10.5-15); White Blood Count 51.8 10^3/ul (3.5-10.8)
[2017-10-06] MEDS: Atenolol TAB* 25 MG PO SCH (08:41)
[2017-10-06] MEDS: Lisinopril TAB* 10 MG PO SCH (08:41)
[2017-10-06] MEDS ORDERED: Spiriva Inhaler DEVICE* 1 EACH DEVICE INH ONE ×2 (09:00)
[2017-10-06] MEDS: Fluticasone NASAL SPRAY 50MCG* 16 gm SPRAY BTL BOTH NARES SCH (09:19)
[2017-10-06] MEDS: Cholecalciferol TAB* 400 UNIT PO SCH (09:20)
[2017-10-06] MEDS: Cetirizine* 10 MG TAB PO SCH (09:21)
[2017-10-06] MEDS: Calcium Carbonate TAB* 1250 MG (CALCIUM 500 MG) PO SCH (09:21)
[2017-10-06] MEDS: Multivitamins/Minerals TAB PO SCH (09:21)
[2017-10-06] MEDS: FLUoxetine CAP* 20 MG PO SCH (09:22)
[2017-10-06] MEDS: Magnesium Oxide TAB* 400 MG PO SCH (09:22)
[2017-10-06] MEDS: Cholecalciferol TAB* 1000 UNITS PO SCH (09:23)
[2017-10-06] MEDS: Rivaroxaban TAB(*) 20 MG TAB PO SCH (09:23)
[2017-10-06] MEDS: HydroxyUREA CAP* 500 MG CAP PO SCH (09:24)
[2017-10-06] MEDS: IRON PS COMPLEX PO SCH (09:24)
[2017-10-06] MEDS: B12 PO SCH (09:24)
[2017-10-06] MEDS: FOLIC ACID PO SCH (09:24)
[2017-10-06 09:33] LABS: Monocytes % 1 % (0-7)
[2017-10-06] MEDS: Mometasone/Formoter 200/5 MDI INH SCH ×2 (10:30→20:13)
--- NOTE | 2017-10-06 10:53 | PN ---
Subjective Date of Service: 10/06/17 Interval History: HOSPITALIST PROGRESS NOTE Patient seen and examined at bedside. Care reviewed and d/w Ian Chu RN. She feels better today. Dyspnea is improved, denies palpitations or chest pain. Family History: Unchanged from Admission Social History: Unchanged from Admission Past Medical History: Unchanged from Admission Objective Active Medications: Acetaminophen (Tylenol Tab*) 975 mg PO Q8H PRN PRN Reason: pain/fever Last Admin: 10/05/17 21:40 Dose: 975 mg Albuterol (Ventolin Hfa Inhaler*) 2 puff INH Q4H PRN PRN Reason: SOB/WHEEZING Last Admin: 10/05/17 19:41 Dose: 2 puff Albuterol (Ventolin 2.5 Mg/3 Ml Neb.Ijeoma*) 2.5 mg INH Q4H PRN PRN Reason: SHORTNESS OF BREATH Atenolol (Tenormin Tab*) 25 mg PO DAILY [facility] Last Admin: 10/06/17 08:41 Dose: 25 mg Atorvastatin Calcium (Lipitor*) 10 mg PO BEDTIME [facility] Last Admin: 10/05/17 20:17 Dose: 10 mg Calcium Carbonate (Calcium Carbonate Tab*) 1,250 mg PO DAILY [facility] Last Admin: 10/06/17 09:21 Dose: 1,250 mg Cetirizine HCl (Zyrtec*) 10 mg PO DAILY [facility] PRN Reason: Protocol Last Admin: 10/06/17 09:21 Dose: 10 mg Cholecalciferol (Vitamin D Tab*) 1,000 units PO DAILY [facility] Last Admin: 10/06/17 09:23 Dose: 1,000 units Cholecalciferol (Vitamin D Tab*) 200 unit PO DAILY [facility] Last Admin: 10/06/17 09:20 Dose: 200 unit Cyanocobalamin (Vitamin B12 Tab*) 1,000 mcg PO EVERY OTHER DAY [facility] Last Admin: 10/05/17 10:42 Dose: 1,000 mcg Docusate Sodium (Colace Cap*) 200 mg PO BID PRN PRN Reason: CONSTIPATION Fluoxetine HCl (Prozac Cap*) 40 mg PO DAILY [facility] Last Admin: 10/06/17 09:22 Dose: 40 mg Fluticasone Propionate (Flonase Nasal [place] 50mcg*) 2 spray BOTH NARES DAILY [facility] Last Admin: 10/06/17 09:19 Dose: 2 spray Guaifenesin (Robitussin*) 10 ml PO QID PRN PRN Reason: COUGH Last Admin: 10/05/17 10:44 Dose: 10 ml Hydroxyurea (Hydrea Cap*) 1,500 mg PO Q24HR [facility] Last Admin: 10/06/17 09:24 Dose: 1,500 mg Levofloxacin/Dextrose (Levaquin 750 Mg Ivpremix(*)) 750 mg in 150 mls @ 100 mls /hr IVPB Q24H [facility] Last Admin: 10/06/17 07:59 Dose: 100 mls/hr Levothyroxine Sodium (Synthroid Tab*) 112 mcg PO 0600 [facility] Last Admin: 10/06/17 06:02 Dose: 112 mcg Lisinopril (Prinivil Tab*) 40 mg PO DAILY [facility] Last Admin: 10/06/17 08:41 Dose: 40 mg Loperamide HCl (Imodium Cap*) 2 mg PO TID PRN PRN Reason: DIARRHEA Lorazepam (Ativan Tab(*)) 0.5 mg PO BEDTIME PRN PRN Reason: ANXIETY Last Admin: 10/05/17 21:40 Dose: 0.5 mg Magnesium Oxide (Magox 400 Tab*) 400 mg PO DAILY [facility] Last Admin: 10/06/17 09:22 Dose: 400 mg Methylprednisolone Sodium Succinate (Solu-Medrol 40 Mg) 40 mg IV Q8H [facility] Last Admin: 10/06/17 09:25 Dose: 40 mg Mometasone Furoate/Formoterol Fumar (Dulera 200/5 Mdi*) 2 puff INH BID [facility] PRN Reason: Protocol Last Admin: 10/06/17 10:30 Dose: 2 puff Montelukast Sodium (Singulair Tab*) 10 mg PO BEDTIME [facility] Last Admin: 10/05/17 20:17 Dose: 10 mg Multivitamins/Minerals (Theragran/Minerals Tab*) 1 tab PO DAILY [facility] Last Admin: 10/06/17 09:21 Dose: 1 tab Pto: Ipratropium [place] [Ipratropium [place]] 2 [place] 2 spray NASAL TID PRN PRN Reason: Allergy Symptoms Pto: Iron Ps Complex /B12/Folic Acid [ Poly-Iron 150 Forte Capsule] 150 Mg) 150 mg PO DAILY [facility] Last Admin: 10/06/17 09:24 Dose: 150 mg Pto: Systane 0.3-0. (4% Eye Drops) 1 drop BOTH EYES QID PRN PRN Reason: DRY EYE Omeprazole (Prilosec Cap*) 20 mg PO 0730 [facility] Last Admin: 10/06/17 08:09 Dose: 20 mg Rivaroxaban (Xarelto(*)) 20 mg PO DAILY [facility] Last Admin: 10/06/17 09:23 Dose: 20 mg Tiotropium [place] (Spiriva Cap.Inh*) 1 cap INH DAILY PRN PRN Reason: SHORTNESS OF BREATH Last Admin: 10/06/17 10:31 Dose: 1 cap Vital Signs - 8 hr 10/06/17 10/06/17 10/06/17 03:00 03:10 03:58 Temperature 98 F Pulse Rate 89 Respiratory 22 21 Rate Blood Pressure 152/83 (mmHg) O2 Sat by Pulse 99 Oximetry 10/06/17 10/06/17 10/06/17 04:00 04:12 04:30 Temperature Pulse Rate 66 67 Respiratory 22 22 17 Rate Blood Pressure 151/58 (mmHg) O2 Sat by Pulse 97 97 Oximetry 10/06/17 10/06/17 10/06/17 05:00 05:01 05:20 Temperature Pulse Rate 66 67 Respiratory 21 23 20 Rate Blood Pressure 166/56 (mmHg) O2 Sat by Pulse 97 97 Oximetry 10/06/17 10/06/17 10/06/17 05:30 06:00 06:22 Temperature Pulse Rate 67 87 Respiratory 19 29 19 Rate Blood Pressure 173/98 (mmHg) O2 Sat by Pulse 98 93 Oximetry 10/06/17 10/06/17 10/06/17 06:30 07:00 07:30 Temperature Pulse Rate 78 70 75 Respiratory 26 22 27 Rate Blood Pressure 148/60 (mmHg) O2 Sat by Pulse 95 98 98 Oximetry 10/06/17 10/06/17 10/06/17 08:00 08:01 08:31 Temperature 98.5 F Pulse Rate 110 73 81 Respiratory 25 24 21 Rate Blood Pressure 179/71 (mmHg) O2 Sat by Pulse 97 98 94 Oximetry 10/06/17 10/06/17 10/06/17 08:33 08:57 09:00 Temperature Pulse Rate 80 77 77 Respiratory 26 21 18 Rate Blood Pressure 181/74 177/58 (mmHg) O2 Sat by Pulse 98 98 96 Oximetry 10/06/17 10/06/17 10/06/17 09:01 09:30 09:32 Temperature Pulse Rate 75 74 76 Respiratory 23 24 18 Rate Blood Pressure 171/85 118/50 (mmHg) O2 Sat by Pulse 97 98 96 Oximetry Oxygen Devices in Use Now: Nasal Cannula - 2 liters Appearance: Pleasant elderly lady sitting up in bed in NAD. Eyes: No Scleral Icterus Ears/Nose/Mouth/Throat: Mucous Membranes Moist Neck: Trachea Midline Respiratory: Symmetrical Chest Expansion and Respiratory Effort, - - BS+ bilaterally decreased with fine crackles both bases Cardiovascular: - - Normal S1 and S2 Abdominal: NL Sounds; No Tenderness; No Distention Extremities: - - Right hallux and 3rd toe ecchymosis Neurological: Alert and Oriented x 3, NL Muscle Strength and Tone Result Diagrams: 10/06/17 08:08 10/06/17 08:08 Assess/Plan/Problems-Billing Assessment: Mrs Keita is a 77yo F with PMH of COPD on home O2, Afib, TIA, HTN, HLD, hypothyroidism, CALR positive myeloproliferative disorder with leukocytosis and thrombocytemia, iron deficiency anemia, recent admission for pneumococcal pneumonia, who presented to ED with c/o dyspnea, found to have COPD exacerbation secondary to bronchitis and Afib RVR. - Patient Problems (1) Sepsis Comment: - Presentation compatible with sepsis, considering her leukocytosis and tachycardia, but her leukocytosis is also driven by her myeloproliferative disorder. (2) COPD exacerbation Comment: - Secondary to bronchitis. - Improving. - Continue bronchodilators, steroids, and Levofloxacin #2. (3) Atrial fibrillation Comment: - Rate is better controlled. - Continue Atenolol and Rivaroxaban. (4) Essential thrombocythemia Comment: - Hematology input appreciated - Hydrea increased to 1500mg/day, but will need to monitor her anemia. - Platelets 902k today. (5) Traumatic hematoma of right foot Comment: - Patient's tablet fell on her right foot. Xray is negative for fracture. Pain is controlled. (6) DVT prophylaxis Comment: - SCD and Rivaroxaban. (7) Full code status Status and Disposition: Inpatient. Transfer to medical floor.
[2017-10-06] MEDS: Acetaminophen TAB* 325 MG PO PRN ×2 (12:56→21:39)
[2017-10-06] MEDS ORDERED: hydrALAZINE IV* 20 MG/ML VIAL IV SLOW PU ONE (18:00)
[2017-10-06] MEDS ORDERED: hydrALAZINE IV* 20 MG/ML VIAL ONE (18:08)
[2017-10-06] MEDS: Atorvastatin* 10 MG TAB PO SCH (19:58)
[2017-10-06] MEDS: Montelukast Sodium TAB* 10 MG PO SCH (19:58)
[2017-10-06] MEDS: Albuterol HFA INHALER* 8 gm MDI INH PRN (20:13)
[2017-10-07] MEDS: methylPREDNISolone SOD 40 MG* 1 ML VIAL IV SCH (00:59)
[2017-10-07] MEDS: Acetaminophen TAB* 325 MG PO PRN (05:31)
[2017-10-07] MEDS: Levothyroxine TAB* 112 MCG TAB PO SCH (05:31)
[2017-10-07 07:32] VITALS: BP 152/61
[2017-10-07] MEDS ORDERED: Tiotropium CAP.INH* CAP.INH/18 MCG (USE ORDER SET !) INH ONE ×2 (07:49→07:52)
[2017-10-07] MEDS: Mometasone/Formoter 200/5 MDI INH SCH (07:55)
[2017-10-07] MEDS: Lisinopril TAB* 10 MG PO SCH (07:58)
[2017-10-07] MEDS: Cholecalciferol TAB* 400 UNIT PO SCH (08:00)
[2017-10-07] MEDS ORDERED: Spiriva Inhaler DEVICE* 1 EACH DEVICE SCH ×2 (08:00)
[2017-10-07] MEDS: Magnesium Oxide TAB* 400 MG PO SCH (08:00)
[2017-10-07] MEDS: Atenolol TAB* 25 MG PO SCH (08:03)
[2017-10-07] MEDS: FLUoxetine CAP* 20 MG PO SCH (08:03)
[2017-10-07] MEDS: Cyanocobalamin TAB* 500 MCG PO SCH (08:04)
[2017-10-07] MEDS: Cholecalciferol TAB* 1000 UNITS PO SCH (08:04)
[2017-10-07] MEDS: Omeprazole CAP* 20 MG PO SCH (08:04)
[2017-10-07] MEDS: Cetirizine* 10 MG TAB PO SCH (08:04)
[2017-10-07] MEDS: HydroxyUREA CAP* 500 MG CAP PO SCH (08:05)
[2017-10-07] MEDS: Multivitamins/Minerals TAB PO SCH (08:05)
[2017-10-07] MEDS: Fluticasone NASAL SPRAY 50MCG* 16 gm SPRAY BTL BOTH NARES SCH (08:06)
[2017-10-07] MEDS: FOLIC ACID PO SCH (08:06)
[2017-10-07] MEDS: IRON PS COMPLEX PO SCH (08:06)
[2017-10-07] MEDS: B12 PO SCH (08:06)
[2017-10-07 08:19] LABS: ABS Basophils 0.2 10^3/ul (0-0.2); ABS Eosinophils 0 10^3/ul (0-0.6); ABS Monocytes 0.4 10^3/ul (0-0.8); ABS Neutrophils 32.9 10^3/ul (1.5-7.7); ABS Nucleated RBC 0.1 10^3/ul; Eosinophil % 0.1 % (0-6); Hematocrit 28 % (35-47); Hemoglobin 8.4 g/dl (12.0-16.0); Mean Corpuscular HGB Conc 30 g/dl (31-36); Mean Corpuscular Hemoglobin 36 pg (27-31); Mean Corpuscular Volume 120 fL (80-97); Mean Platelet Volume 10.4 um3 (7.4-10.4); Nucleated Red Blood Cells % 0.2; Platelet Count 844 10^3/ul (150-450); Red Blood Count 2.29 10^6/ul (4.0-5.4); Red Cell Distribution Width 16 % (10.5-15); White Blood Count 48.5 10^3/ul (3.5-10.8)
[2017-10-07] MEDS ORDERED: predniSONE TAB* 20 MG PO SCH (09:00)
[2017-10-07] MEDS: Rivaroxaban TAB(*) 20 MG TAB PO SCH (09:56)
[2017-10-07] MEDS: Calcium Carbonate TAB* 1250 MG (CALCIUM 500 MG) PO SCH (09:56)
[2017-10-07] MEDS: Levofloxacin 750 MG IVPREMIX(* 750 MG/150 ML BAG IVPB SCH (10:49)
[2017-10-07] MEDS ORDERED: Acetaminophen TAB* 325 MG PO ONE (11:02)
--- NOTE | 2017-10-07 23:35 | DS ---
CC: Dr. Kim Whitaker; Dr. Ram DISCHARGE SUMMARY: DATE OF ADMISSION: 10/05/17 DATE OF DISCHARGE: 10/07/17 PRIMARY CARE PROVIDER: Dr. Kim Whitaker. [employer] OPERATOR: Dr. Ram. DISCHARGE DIAGNOSES: 1. Chronic obstructive pulmonary disease exacerbation secondary to bronchitis. 2. Sepsis secondary to the above. 3. Atrial fibrillation with rapid ventricular rate. 4. Trauma to right first and third toes. SECONDARY DIAGNOSES: 1. Chronic obstructive pulmonary disease, on home oxygen at 2 L per minute. 2. Atrial fibrillation. 3. Transient ischemic attack. 4. Hypertension. 5. Hyperlipidemia. 6. Hypothyroidism. 7. Myeloproliferative disorder with CALR-positive essential thrombocythemia. 8. Recent admission in July 2017 for pneumococcal pneumonia. MEDICATION LIST: 1. Fluticasone nasal spray 50 mcg 2 sprays to both nares daily. 2. Colace 100 to 200 mg p.o. b.i.d. as needed for constipation. 3. Cetirizine 10 mg p.o. daily. 4. Calcium plus vitamin D 1 tablet p.o. daily. 5. Atorvastatin 10 mg p.o. at bedtime. 6. Alendronate 70 mg p.o. every Sunday. 7. Combivent Respimat 1 puff inhaled t.i.d. as needed for shortness of breath. 8. Albuterol HFA 2 puffs inhaled q.4 hours p.r.n. shortness of breath. 9. Albuterol 2.5 mg nebulized q.6 hours p.r.n. shortness of breath. 10. Lorazepam 0.25 mg to 0.5 mg p.o. at bedtime as needed for anxiety. 11. Poly-Iron 150 mg p.o. daily. 12. Ipratropium bromide 2 sprays nasal t.i.d. as needed for allergy symptoms. 13. Ipratropium 0.5 mg nebulized t.i.d. p.r.n. shortness of breath. 14. Furosemide 20 mg p.o. Mondays, Wednesdays, and Fridays. 15. Artificial Tears 1 drop to both eyes 4 times a day p.r.n. dry eyes. 16. Omeprazole 20 mg p.o. daily. 17. Multivitamins 1 tablet p.o. daily. 18. Montelukast 10 mg p.o. at bedtime. 19. Magnesium oxide 400 mg p.o. daily. 20. Lisinopril 40 mg p.o. daily. 21. Guaifenesin 10 mL p.o. 4 times a day as needed for cough. 22. Spiriva 1 capsule inhaled daily. 23. Xarelto 20 mg p.o. daily. 24. Vitamin B12 1000 mcg p.o. every other day. 25. Acetaminophen 1000 mg p.o. q.8 hours. 26. Loperamide 2 mg p.o. t.i.d. as needed for diarrhea. 27. Cholecalciferol 1000 units p.o. daily. 28. Levothyroxine 112 mcg p.o. daily. 29. Fluoxetine 40 mg p.o. daily. 30. Symbicort 160/4.5 two puffs inhaled b.i.d. 31. Atenolol 25 mg p.o. daily. Medication change: Hydrea was increased from 1000 mg to 1500 mg p.o. daily. New medications: 1. Levofloxacin 750 mg p.o. daily for 5 more days. 2. Prednisone taper as follows: 40 mg p.o. daily for 3 days, then 30 mg for 3 days, then 20 mg for 3 days, then 10 mg for 3 days, then 5 mg p.o. daily as you are doing before. HOSPITAL COURSE: Mrs. Keita is a 77-year-old lady with past medical history as stated above that presented to the emergency room on 10/05/17 with complaints of shortness of breath. She states the symptoms have started earlier in the week and got progressively worse with more dyspnea and more frequent cough, but no change in sputum production. The patient states that the anniversary of her son's approaching, and the night prior to admission , she became very emotional and was crying when her shortness of breath became really severe and that prompted her emergency room visit. For more details about her presentation, I refer you to her history and physical. Chest x-ray in the emergency room showed small bibasilar infiltrates. She was admitted under the impression of acute COPD exacerbation secondary to bronchitis and atrial fibrillation with rapid ventricular rate. She went to the intensive care unit initially, but with antibiotics, steroids, and rate control, she had significant improvement of her symptoms. Of note is the fact that the patient had significant leukocytosis of 42,000 on admission and thrombocytosis of a 1,036,000. She was seen in consultation by Hematology (Dr. Paniagua) and the patient had recently seen Dr. Ram and as her anemia was getting worse, her Hydrea had been decreased from [address] Paniagua felt that her leukocytosis was an exaggerated response to her infection given her underlying myeloproliferative neoplasm. In terms of the increasing platelet count, she recommended increasing it back to 1500 mg. This may drop her hemoglobin, but it is difficult not to go up with levels that high. The patient had improvement of her symptoms as she feels back to her baseline and she was felt to be stable to be discharged home today. PHYSICAL EXAMINATION: Vital Signs: Temperature 97.6, heart rate is 70, respiratory rate is 19, oxygen saturation is 98% on 2 L nasal cannula, blood pressure is 152/61. General: The patient is a pleasant elderly lady, sitting up in bed, in no acute distress. CVS: Normal S1, S2. Irregularly irregular. Chest: Breath sounds present bilaterally diminished with no added sounds. Extremities: The patient has ecchymoses to the right first and third toes that occurred when she dropped the tablet on her foot. Neuro: She is alert and oriented x3, able to move all 4 extremities. DIET: Heart-healthy diet. ACTIVITY: As tolerated. DISPOSITION: To home. STATUS WHILE IN THE HOSPITAL: Inpatient. Please keep in mind this is a summarized version of this patient's hospital stay. If you need more information, please feel free to call me at [phone] or please obtain the full medical records. TIME SPENT: Approximately 45 minutes were spent to complete this discharge. [id number]/CPS #: [id number] [facility]ITAL[facility]
[2017-10-08] MEDS ORDERED: Tiotropium CAP.INH* CAP.INH/18 MCG (USE ORDER SET !) INH SCH (09:00)
== END 2017-10-07 12:30 | disposition home or self-care (01) | DRG 871 ==
LOC: ED 05:27 → ICU 08:52 → SSU 10-06 19:00
PROVIDERS: ADMIT Internal Medicine; ATTEND Internal Medicine
DX: A41.9 Sepsis, unspecified organism (principal); J96.01 Acute respiratory failure with hypoxia; J44.1 Chronic obstructive pulmonary disease with (acute) exacerbation; J44.0 Chronic obstructive pulmonary disease with (acute) lower respiratory infection; C94.6 Myelodysplastic disease, not elsewhere classified; J98.11 Atelectasis; J20.9 Acute bronchitis, unspecified; Z99.81 Dependence on supplemental oxygen; I48.91 Unspecified atrial fibrillation; I10 Essential (primary) hypertension; E78.5 Hyperlipidemia, unspecified; E03.9 Hypothyroidism, unspecified; D47.3 Essential (hemorrhagic) thrombocythemia; D50.9 Iron deficiency anemia, unspecified; S90.111A Contusion of right great toe without damage to nail, initial encounter; S90.121A Contusion of right lesser toe(s) without damage to nail, initial encounter; W22.8XXA Striking against or struck by other objects, initial encounter; Y92.9 Unspecified place or not applicable; Z86.73 Personal history of transient ischemic attack (TIA), and cerebral infarction without residual deficits; Z79.1 Long term (current) use of non-steroidal anti-inflammatories (NSAID); Z79.52 Long term (current) use of systemic steroids; Z79.899 Other long term (current) drug therapy; Z88.1 Allergy status to other antibiotic agents; Z88.8 Allergy status to other drugs, medicaments and biological substances; Z91.018 Allergy to other foods; Z80.6 Family history of leukemia; Z82.49 Family history of ischemic heart disease and other diseases of the circulatory system; Z82.3 Family history of stroke; Z87.891 Personal history of nicotine dependence
CPT/HCPCS: 36415; 71046; 80048; 80053; 82728; 83540; 83550; 83605; 83880; 84484; 85025; 85060; 85610; 85730; 86140; 87040; 87641; 93005; 94640; 99232; 99285; A9270-GY; J0360; J1940; J2405; J2920; J2930; J3475; J7512

== ENCOUNTER 2017-10-22 16:47 | Inpatient (IN) | payer MEDICARE ==
[2017-10-22 17:55] LABS: ABS Basophils 0.1 10^3/ul (0-0.2); ABS Eosinophils 0 10^3/ul (0-0.6); ABS Lymphocytes 6.8 10^3/ul (1.0-4.8); ABS Monocytes 0.6 10^3/ul (0-0.8); ABS Neutrophils 9.7 10^3/ul (1.5-7.7); ABS Nucleated RBC 0 10^3/ul; Eosinophil % 0.2 % (0-6); Hematocrit 28 % (35-47); Hemoglobin 8.8 g/dl (12.0-16.0); Lymphocyte % 39.3 % (25-47); Mean Corpuscular HGB Conc 32 g/dl (31-36); Mean Corpuscular Hemoglobin 39 pg (27-31); Mean Corpuscular Volume 122 fL (80-97); Nucleated Red Blood Cells % 0; Platelet Count 451 10^3/ul (150-450); Red Blood Count 2.26 10^6/ul (4.00-5.40); Red Cell Distribution Width 18 % (10.5-15); White Blood Count 17.3 10^3/ul (3.5-10.8)
[2017-10-22 18:01] LABS: INR 1.52 (0.77-1.02)
--- NOTE | 2017-10-22 18:08 | RAD ---
Indication: Shortness of breath. Fever. Chronic obstructive pulmonary disease. Comparison: October 17, [address] and October 05, 2017 chest radiograph. Technique: Upright AP 1750 hours Report: Elevated lung volumes, coarse interstitial markings, and superimposed costochondral calcifications. No new pulmonary opacity, pleural effusion, pneumothorax. Negative for cardiomegaly. Unremarkable central pulmonary vasculature. Moderately tortuous thoracic aorta. IMPRESSION: Stigmata of obstructive lung disease. No acute pulmonary or cardiac process evident.
[2017-10-22 18:10] LABS: EGFR Non-African American 56.7 (>60)
[2017-10-22] MEDS ORDERED: methylPREDNISolone 125 MG* 2 ML VIAL IV ONE (20:47)
[2017-10-22] MEDS ORDERED: Ondansetron 40 MG VIAL* 2 MG/ML 20 ML VIAL IV PRN (21:18)
[2017-10-22] MEDS ORDERED: Docusate CAP* 100 MG PO PRN (21:26)
[2017-10-22] MEDS ORDERED: Loperamide CAP* 2 MG PO PRN (21:26)
--- NOTE | 2017-10-22 21:45 | ED ---
Osiel Bates Jade, scribed for Fannie Mackey MD on 10/22/17 at 1743 . Shortness of Breath - HPI Summary HPI Summary: Pt is a 77 y/o female with hx myeloproliferative disorder BIBA who c/o increasing SOB and cough. The symptoms started 2 days ago and have become increasingly become worse. She was hospitalized at [facility] [place] 3 weeks ago for COPD, sepsis and pneumonia and was in the ICU for 2 days. Pt states that she didnt feel back to normal after the hospitalization. Pt denies any CP. Is noted to have temp elevation of 100.3 on admission. Denies fever at home. She is on 3 L of oxygen at home chronically. Pt is here with her son. She lives at [facility]. Pt was supposed to see Dr. Ram (face burler) today, but missed her appointment. She is a prior smoker. Home Medications Medication Instructions Recorded Confirmed Type Atorvastatin* [Lipitor 10 MG*] 10 mg PO BEDTIME 05/14/12 10/05/17 History FLUoxetine CAP* [Prozac CAP*] 40 mg PO DAILY 05/14/12 10/05/17 History Montelukast Sodium TAB* [Singulair 10 mg PO BEDTIME 05/14/12 10/05/17 History 10 MG TAB*] Omeprazole CAP* [Prilosec CAP* 20 20 mg PO DAILY 05/14/12 10/05/17 History MG] Alendronate (NF) [Fosamax (NF)] 70 mg PO .EVERY Sunday09/07/14 10/05/17 History Levothyroxine TAB* [Synthorid 112 112 mcg PO DAILY 09/07/14 10/05/17 History MCG TAB*] Albuterol/Ipratropium RESP(NF) 1 puff INH TID PRN 05/25/15 10/05/17 History [Combivent Respimat (NF)] Budesonide/Formote 160/4.5(NF) 2 puff INH BID 08/09/16 10/05/17 History [Symbicort 160/4.5 (NF)] Calcium Carbonate/Vitamin D3 1 tab PO DAILY 08/09/16 10/05/17 History [Calcium 600-Vit D3 200 Tablet] Furosemide TAB* [Lasix TAB*] 20 mg PO MOWEFR 08/09/16 10/05/17 History Ipratropium [place] 2 spray NASAL TID PRN 08/09/16 10/05/17 History Albuterol 2.5MG/3ML (0.083%)* 2.5 mg INH Q6H PRN 11/20/16 10/05/17 History [Ventolin 2.5 MG/3 ML NEB.GAVIN*] Cholecalciferol TAB* [Vitamin D 1,000 units PO DAILY 11/20/16 10/05/17 History TAB*] Cyanocobalamin TAB* [Vitamin B12 1,000 mcg PO EVERY OTHER DAY 11/20/16 10/05/17 History TAB*] Docusate CAP* [Colace Cap*] 100 - 200 mg PO BID PRN 11/20/16 10/05/17 History Fluticasone NASAL SPRAY 50MCG* 2 spray BOTH NARES DAILY 11/20/16 10/05/17 History [Flonase NASAL SPRAY 50MCG*] Ipratropium 0.5MG/2.5ML NEB* 0.5 mg INH TID PRN 11/20/16 10/05/17 History [Atrovent 0.5 MG NEB.GAVIN*] Iron Ps Complex/B12/Folic Acid 150 mg PO DAILY 11/20/16 10/05/17 History [Poly-Iron 150 Forte Capsule] LORazepam TAB(*) [Ativan 0.5 MG 0.25 - 0.5 mg PO BEDTIME PRN 11/20/16 10/05/17 History TAB (*)] Magnesium Oxide TAB* [MagOx 400 400 mg PO DAILY 11/20/16 10/05/17 History TAB*] Multivitamins/Minerals TAB* 1 tab PO DAILY 11/20/16 10/05/17 History [Theragran/minerals TAB*] Rivaroxaban TAB(*) [Xarelto 20 mg] 20 mg PO DAILY 11/20/16 10/05/17 History Tiotropium CAP.INH* [Spiriva 1 cap INH DAILY PRN 11/20/16 10/05/17 History CAP.INH*] guaiFENesin LIQ* [Robitussin*] 10 ml PO QID PRN 11/20/16 10/05/17 History Atenolol TAB* [Tenormin TAB* 25 MG] 25 mg PO DAILY #30 tab 11/23/16 10/05/17 Rx Acetaminophen [Acetaminophen Extra 1,000 mg PO Q8H 07/03/17 10/05/17 History Strength] Albuterol HFA INHALER* [Ventolin 2 puff INH Q4H PRN 07/03/17 10/05/17 History HFA Inhaler*] Cetirizine* [ZyrTEC 10 MG TAB*] 10 mg PO DAILY 07/03/17 10/05/17 History Lisinopril TAB* [Prinivil TAB 10 40 mg PO DAILY 07/03/17 10/05/17 History MG*] Loperamide CAP* [Imodium CAP*] 2 mg PO TID PRN 07/03/17 10/05/17 History Propylene Glycol/Peg 400/Pf 1 drop BOTH EYES QID PRN 07/03/17 10/05/17 History [Systane 0.3-0.4% Eye Drops] HydroxyUREA CAP* [Hydrea CAP*] 1,500 mg PO DAILY #90 cap 10/07/17 Rx Levofloxacin TAB* [Levaquin 750 MG 750 mg PO DAILY #5 tab 10/07/17 Rx TAB*] predniSONE TAB* [Deltasone 10 MG 10 mg PO SEE INSTRUCTIONS #35 tab 10/07/17 Rx TAB*] - History of Current Complaint Chief Complaint: EDShortnessOfBreath Time Seen by Provider: 10/22/17 17:15 Hx Obtained From: Patient, Family/Weave Room Supervisor, Medical Records Onset/Duration: Gradual Onset, Lasting Days - 2, Still Present, Worse Since - today Timing: Constant Current Severity: Severe Dyspnea At: Rest Aggrevating Factors: Nothing Alleviating Factors: Nothing Associated Signs & Symptoms: Cough (Nonproductive), Fever Related History: Healthcare Acquired: Inpatient Status Within Last 30 Days - Risk Factors Pulmonary Embolism: Malignancy - Allergy/Home Medications Allergies/Adverse Reactions: Allergies Allergy/AdvReac Type Severity Reaction Status Date / Time amlodipine [From Norvasc] Allergy See Comment Verified 10/22/17 17:02 azithromycin [From Zithromax] Allergy Diarrhea Verified 10/22/17 17:02 clarithromycin [From Biaxin] Allergy Hives Verified 10/22/17 17:02 garlic Allergy Diarrhea Verified 10/22/17 17:02 Home Medications: Home Medications Acetaminophen with Codeine [Acetaminophen/Codeine Emeterio 300-30 mg] 1 tab PO BID [History Confirmed 10/22/17] PMH/Surg Hx/FS Hx/Imm Hx Endocrine/Hematology History: Reports: Hx Blood Disorders - myeloproliferative disorder , Hx Thyroid Disease - HYPOTHYROIDISM, Hx Anemia - PERNICIOUS ANEMIA Denies: Hx Blood Transfusions, Hx Bone Marrow Disease, Hx Diabetes, Hx Systemic Lupus Erythematosus, Hx Unexplained Bleeding Cardiovascular History: Reports: Hx Atrial Fibrillation, Hx Hypercholesterolemia , Hx Hypertension Denies: Hx Pacemaker/ICD Respiratory History: Reports: Hx Asthma, Hx Chronic Bronchitis, Hx Chronic Obstructive Pulmonary Disease (COPD) - ON HOME O2-3L, Hx Pneumonia, Hx Pulmonary Embolism GI History: Reports: Hx Gastroesophageal Reflux Disease, Other GI Disorders - gastroenteritis History: Denies: Hx Dialysis, Hx Renal Disease Musculoskeletal History: Reports: Hx Arthritis - OA, Other Musculoskeletal History - osteo-arthritis Sensory History: Denies: Hx Cataracts - bilaterally removed, Hx Contacts or Glasses, Hx Hearing Aid Opthamlomology History: Denies: Hx Cataracts - bilaterally removed, Hx Contacts or Glasses Neurological History: Reports: Hx Transient Ischemic Attacks (TIA) Denies: Hx Dementia, Hx Seizures Psychiatric History: Reports: Hx Depression Denies: Hx Panic Disorder, Hx Substance Abuse - Cancer History Cancer Type, Location and Year: pre-cancerous lesion on face. myeloproliferative disorder Hx Chemotherapy: Yes Hx Radiation Therapy: No - Surgical History Surgery Procedure, Year, and Place: Tubal ligation, pt states 31 years ago. Oral surgery, pt states when she was a teenager. CATARACT SURGERY Hx Anesthesia Reactions: No - difficulty reversing or "waking up." - Immunization History Date of Tetanus Vaccine: Unk Date of Influenza Vaccine: Fall 2013 Infectious Disease History: No Infectious Disease History: Denies: Hx Clostridium Difficile, Hx Hepatitis, Hx Human Immunodeficiency Virus (HIV), Hx Shingles, Hx Tuberculosis, Traveled Outside the [place] in Last 30 Days - Family History Known Family History: Positive: Cardiac Disease - CAD (father), Hypertension, Diabetes, Other - Leukemia (mother), CVA (father) - Social History [facility]: [facility] Alcohol Use: None Hx Substance Use: No Substance Use Type: Reports: None Hx Tobacco Use: Yes Smoking Status (MU): Former Smoker Type: Cigarettes Have You Smoked in the Last Year: No Review of Systems Positive: Fever, Fatigue Negative: Chest Pain Positive: Shortness Of Breath Gastrointestinal: Negative Musculoskeletal: Negative Positive: Other - wound on left great toe Positive: Weakness Psychological: Normal All Other Systems Reviewed And Are Negative: Yes Physical Exam - Summary Physical Exam Summary: Appearance: Ill-appearing, moderate pain distress, well-nourished, wearing oxygen at 3 L Skin: Warm, color reflects adequate perfusion, dry Head: Normal Head/Face inspection, atraumatic Eyes: Conjunctiva clear ENT: Normal inspection Neck: Supple, no nodes, no JVD Respiratory: Decreased breath sounds throughout, scattered rhonchi Cardio: RRR, No murmur, pulses normal, brisk capillary refill Abdomen: Soft, nontender Bowel sounds: Present Musculoskeletal: Strength Intact/ROM intact, no calf tenderness, no edema. Psychological: Normal Neuro: Alert, muscle tone normal, no focal deficit Triage Information Reviewed: Yes Vital Signs On Initial Exam: Initial Vitals Temp Pulse Resp BP Pulse Ox 100.3 F 79 24 135/60 96 10/22/17 16:55 10/22/17 16:55 10/22/17 16:55 10/22/17 16:55 10/22/17 16:55 Vital Signs Reviewed: Yes Diagnostics - Vital Signs Vital Signs Temp Pulse Resp BP Pulse Ox 10/22/17 17:00 81 26 97 10/22/17 16:56 85 30 96 10/22/17 16:55 100.3 F 79 24 135/60 96 - Laboratory Result Diagrams: 10/22/17 17:42 10/22/17 17:42 Lab Statement: Any lab studies that have been ordered have been reviewed, and results considered in the medical decision making process. - Radiology CXR Xray Interpretation: No Acute Changes - 17:16: Stigmata of obstructive lung disease. No acute pulmonary or cardiac process evident. ED physician reviewed radiology report. Radiology Interpretation Completed By: Radiologist - EKG 17:27 Cardiac Rate: NL - 76 bpm EKG Rhythm: Sinus Rhythm EKG Interpretation: Nl AV/IV CT, nl QTc, nl axis. No acute changes. Re-Evaluation - Re-Evaluation First Eval Re-Evaluation Time: 20:35 Change: Unchanged Comment: Discussed conversion with Dr. Ram, and his recommendation that if pt with increased SOB, pt be admitted. Continued SOB and weakness. No CP. Pt agrees to admission. Course/Dx - Course Course Of Treatment: Pt is a 77 y/o female residential resident, with hx myeloproliferative disorder on hydrea, COPD on home O2, BIBA c/o increasing SOB , cough, low grade temp 100.3. Pt was hospitalized in the ICU with sepsis, pneumonia on 10/05/17. In the ED pt requires increased O2 to maintain saturations. Pt was given solumedrol 125mg IV in the ED. A CXR revealed stigmata of obstructive lung disease, and no acute pulmonary or cardiac process evident. An EKG revealed normal rate at 76 bpm, sinus rhythm, nl AV/IV CT, nl QTc, nl axis, and no acute changes. Discussed with Dr. Ram who recommends admission if pt is truly more SOB, as pt is not usually SOB in his office. Dx are myeloproliferative disorder and COPD exacerbation. Dr. Douglas accepts pt for admission. Pt medications and allergies reviewed in this visit. - Diagnoses Differential Diagnosis/HQI/PQRI: Positive: Bronchitis, CHF, COPD Exacerbation, Pneumonia, Pulmonary Embolism, Pulmonary Edema Provider Diagnoses: COPD exacerbation, Myeloproliferative disorder - Physician Notifications Discussed Care of Patient With: Maico Ram Time Discussed With Above Provider: 20:30 Instructed by Provider To: Other - He recommends hospital admission if pt is truly more SOB, as she is not usually SOB in his office. Discharge - Sign-Out/Discharge Documenting (check all that apply): Discharge/Admit/Transfer - Admit Signing out patient TO: Karmen Douglas - Discharge Plan Condition: Stable Disposition: ADMITTED TO [facility] - Billing Disposition and Condition Condition: STABLE Disposition: Admitted to [facility] The documentation as recorded by the Osiel mcclain Jade accurately reflects the service I personally performed and the decisions made by , Fannie Mackey MD.
[2017-10-22] MEDS: Albuterol/Ipratropium NEB.SOL* Albuterol 2.5 MG/Ipratropium 0.5 MG 3 ML INH SCH (23:07)
[2017-10-22] MEDS: Clotrimazole TROCHE* 10 MG TROCHE PO SCH (23:34)
[2017-10-22] MEDS: NS 0.9% 1000 ML* 1,000 ML IV SCH (23:34)
[2017-10-23 00:53] LABS: Urine Appearance Cloudy; Urine Blood Negative (Negative); Urine Color Yellow; Urine Ketones Trace (Negative); Urine Protein Negative (Negative); Urine Specific Gravity 1.009 (1.010-1.030); Urine Urobilinogen Negative (Negative)
[2017-10-23] MEDS: Diltiazem TAB* 30 MG PO SCH ×2 (01:09→05:59)
[2017-10-23] MEDS: Albuterol/Ipratropium NEB.SOL* Albuterol 2.5 MG/Ipratropium 0.5 MG 3 ML INH SCH ×6 (02:55→23:42)
[2017-10-23 04:52] LABS: ABS Basophils 0 10^3/ul (0-0.2); ABS Eosinophils 0 10^3/ul (0-0.6); ABS Lymphocytes 6.6 10^3/ul (1.0-4.8); ABS Monocytes 0.1 10^3/ul (0-0.8); ABS Neutrophils 9.5 10^3/ul (1.5-7.7); ABS Nucleated RBC 0 10^3/ul; Eosinophil % 0 % (0-6); Hematocrit 28 % (35-47); Hemoglobin 8.8 g/dl (12.0-16.0); Lymphocyte % 40.6 % (25-47); Mean Corpuscular HGB Conc 32 g/dl (31-36); Mean Corpuscular Hemoglobin 39 pg (27-31); Mean Corpuscular Volume 123 fL (80-97); Nucleated Red Blood Cells % 0; Platelet Count 443 10^3/ul (150-450); Red Blood Count 2.25 10^6/ul (4.00-5.40); Red Cell Distribution Width 18 % (10.5-15); White Blood Count 16.3 10^3/ul (3.5-10.8)
[2017-10-23 04:58] LABS: EGFR Non-African American 61.2 (>60)
[2017-10-23] MEDS: Levothyroxine TAB* 112 MCG TAB PO SCH (05:57)
[2017-10-23] MEDS: Clotrimazole TROCHE* 10 MG TROCHE PO SCH ×5 (05:59→22:12)
--- NOTE | 2017-10-23 06:23 | HP ---
CC: Dr. Kim Whitaker; Dr. Maico Ram * HISTORY AND PHYSICAL: DATE OF ADMISSION: 10/22/17 PRIMARY CARE PROVIDER: Dr. Kim Whitaker. MY ATTENDING WHILE IN THE HOSPITAL: Dr. Karmen Douglas.* (DICTATED BY MARRY LAIRD) PRIMARY DROSS PULLER: Dr. Maico Ram. CHIEF COMPLAINT: Increased shortness of breath x2 days. HISTORY OF PRESENT ILLNESS: Ms. 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 The patient states that she is now unable to take 2 steps. The patient will have a more frequent nonproductive cough with associated chest tightness and occasional pain while coughing. The patient states that this came on relatively suddenly. The patient has no sick contacts. The patient was recently admitted to this institution from 10/05/17 through 10/07/17 for bronchitis with associated COPD exacerbation and rapid atrial fibrillation for which she needed ICU admission for diltiazem drip. The patient states that her shortness of breath feels worse this time than when she was admitted before. The patient has no subjective fevers but feels intermittently chilled. The patient does state this feels somewhat like her previous COPD exacerbations but worse. The patient has no productive cough. The patient has no numbness or tingling of hands or feet. The patient states that she has increased swelling in her right leg. The patient states she usually has increased swelling in that ankle, but now it extends up the entire calf without cramping or other pain. The patient states her arm went numb on the night that her shortness of breath began but then this was a short episode and has not recurred. The patient feels like for the first time in her life, she is having anxiety attacks provoked by feelings of being alone where she feels very anxious and hyperventilates. The patient takes her O2 saturations at home and the lowest she got was 91 two days prior to admission and has been in the mid 90s since then. The patient wears 3 L of oxygen at home. Due to concern for severely increased shortness of breath even with normal oxygenation on home oxygen, we were asked to evaluate for admission. Of note, the patient's heart rate frequently and somewhat cyclically went to the 130 range briefly during the interview with no provoking factors, appeared to be atrial fibrillation and no discrete P waves. The patient states she has a feeling of fluttering and palpitations when this happens but she states she feels frequently at home but does not think much of. 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 PAST SURGICAL HISTORY: Tubal ligation, tonsillectomy. MEDICATIONS: 1. Omeprazole 20 mg p.o. daily. 2. Fluoxetine 40 mg p.o. daily. 3. Atorvastatin 10 mg p.o. daily. 4. Singulair 10 mg p.o. at bedtime. 5. Levothyroxine 112 mcg p.o. daily. 6. Alendronate 70 mg p.o. every Sunday. 7. Combivent one puff inhalation t.i.d. as needed. 8. Calcium 600 vitamin D3 200 one tab p.o. daily. 9. Symbicort 160/4.5 one puff inhalation b.i.d. 10. Ipratropium bromide 2 sprays nasal t.i.d. as needed. 11. Lasix 20 mg p.o. Sunday, Sunday, and Sunday. 12. Magnesium oxide 400 mg p.o. daily. 13. Iron 150 mg p.o. daily. 14. Vitamin B12 1000 mcg p.o. every other day. 15. Albuterol 2.5 mg inhalation q.6 hours as needed. 16. Rivaroxaban 20 mg p.o. daily. 17. Cholecalciferol 1000 units p.o. daily. 18. Ipratropium 0.5 mg inhalation t.i.d. as needed. 19. Guaifenesin 10 mg p.o. four times a day as needed. 20. Docusate 100 to 200 mg p.o. b.i.d. as needed. 21. Fluticasone two sprays both nares daily. 22. Multivitamin one tab p.o. daily. 23. Lorazepam 0.25 to 0.5 mg p.o. at bedtime as needed. 24. Tiotropium one cap inhalation daily. 25. Atenolol 25 mg p.o. daily. 26. Loperamide 2 mg p.o. t.i.d. as needed. 27. Cetirizine 10 mg p.o. daily. 28. Albuterol 2 puffs inhalation q.4 hours as needed. 29. Propylene glycol one drop both eyes four times a day as needed. 30. Lisinopril 40 mg p.o. daily. 31. Tylenol 1000 mg p.o. q.8 hours. 32. Hydroxyurea 1500 mg p.o. daily. 33. Tylenol with Codeine one tab p.o. b.i.d. ALLERGIES: AMLODIPINE, AZITHROMYCIN, CLARITHROMYCIN, GARLIC. FAMILY HISTORY: The patient's mother of acute leukemia. The patient's father of complications of stroke. The patient's brother has significant heart disease. The patient's other brother is an alcoholic. The patient has 2 sons with diabetes mellitus and 2 sons with hypertension. SOCIAL HISTORY: The patient smoked, has approximately [id number] history of smoking. The patient denies alcohol or drug use. 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. The patient is and has 5 children. The patient would like her daughter, Sue Porter, to be her surrogate decision maker. REVIEW OF SYSTEMS: A 14-point review of systems was reviewed and is negative except as above in the HPI. PHYSICAL EXAMINATION GENERAL: The patient is a 77-year-old, who appears stated age and sitting comfortably in bed, in no acute distress. VITAL SIGNS: At the time of evaluation, temperature 99.4, pulse rate 97, respiratory rate 23, oxygen saturation 96% on 3 L, blood pressure 129/59. HEENT: Head: Normocephalic, atraumatic. Sclerae anicteric. No conjunctival injection. Oral mucosa shows significant plaques consistent with thrush with significant erythema surrounding, no other pharyngeal erythema or exudate. NECK: Supple, nontender. No lymphadenopathy. No carotid bruit auscultated. No JVD. RESPIRATORY: Slight wheezes in the bilateral lung bases. No adventitious lung sounds. Egophony positive in the right lung base. CARDIAC: Irregularly irregular rhythm. No clicks, murmurs, gallops, or rubs. Pulses are 2+ bilateral in dorsalis pedis, posterior tibia, and radial area. No bilateral calf tenderness. Right leg is significantly more swollen and somewhat erythematous than the left leg. ABDOMEN: Soft, nontender, nondistended. Bowel sounds present, normoactive in all 4 quadrants. No hepatosplenomegaly. No abdominal bruits auscultated. No hepatojugular reflux. GENITOURINARY: No suprapubic or CVA tenderness. NEUROLOGIC: Cranial nerves II through XII intact. No focal deficits. Alert and oriented x3. PSYCHIATRIC: Pleasant and cooperative. SKIN: Significant ecchymosis over the patient's arms. No other rash. DIAGNOSTIC STUDIES/LAB DATA: White blood count 17.3, hemoglobin 8.8, hematocrit 28, MCV 122, MCH 39, RDW 18, platelet count 451. INR 1.52, aPTT 35.8. Sodium 134, potassium 4.1, chloride 98, carbon dioxide 28, anion gap 8, BUN 13, creatinine 0.95, glucose 112, lactic acid 0.7, calcium 8.8. Total bilirubin 1.08, AST 16, ALT 6, alkaline phosphatase 44. Creatine kinase 25. Troponin I 0.00. CRP 136.74. BNP 54. Total protein 6.5, albumin 2.5, globulin 3.0. Procalcitonin 0.1. Chest x-ray read as: Mild obstructive lung disease. No acute cardiac or pulmonary process evident. EKG shows normal sinus rhythm with premature atrial complex. No ST-segment abnormalities. No hypertrophy or enlargement. Rate of 76, QTc of 414. ASSESSMENT AND PLAN: Impression: Ms. Keita is a 77-year-old female with past medical history significant for chronic obstructive pulmonary disease with chronic respiratory failure, on 3 L of oxygen; atrial fibrillation; pulmonary embolism; essential leukocytosis and thrombocytosis, who presents to the emergency department with significant increase in her shortness of breath. The patient has slight wheezes and positive egophony with negative procalcitonin. The patient states she is not able to walk more than 10 feet without becoming short of breath. The patient does not have increased oxygen demand; however, the patient will be admitted to the hospital for chronic obstructive pulmonary disease exacerbation. 1. Chronic obstructive pulmonary disease exacerbation. The patient is currently saturating well on her home dose of 3 L of oxygen. The patient has significantly increased shortness of breath with tachypnea. The patient has slight wheezes throughout her lungs krueger and positive egophony in her right lower lobe. The patient's procalcitonin is negative. The patient, however, does have elevated CRP and ESR greater than when she was here previously. The patient was started on steroids, 60 mg p.o. daily with plan for a 5-day course. The patient will also start on scheduled nebulizers while awake with albuterol for breakthrough wheezing. The patient will not be started on antibiotics due to the relative non-severity of this chronic obstructive pulmonary disease exacerbation and negative procalcitonin. The patient will have a repeat x-ray in the morning to assess for blooming of infiltrate at which time pneumonia will be reconsidered and antibiotics possibly given. The patient did have a slight temperature at 99.4 in the emergency department. This was monitored closely. It is possible that patient has a viral infection, which is driving this chronic obstructive pulmonary disease exacerbation. The patient will have aggressive pulmonary toilet. The patient has a cough, which she believes might be related to the chronic dry cough which she believes might be related to her lisinopril. I also discussed with the patient switching to an ARB outpatient. 2. Atrial fibrillation. The patient's initial EKG showed sinus rhythm with atrial ectopy; however, telemetry monitoring shows possible atrial fibrillation with intermittent rapid ventricular response with rates into the 130s. Repeat EKG will be drawn and the patient will be started on diltiazem, hold parameters to decrease the peak heart rate. Her resting heart rate appears to be around 70. We will not increase the patient's atenolol due to beta agonist use. The patient is on Xarelto and has frequent palpitation episodes. 3. History of pulmonary embolism. The patient has unilateral leg swelling. The patient is on Xarelto. The patient is tachycardic, has increased shortness of breath. The patient has essential thrombocytosis, which predisposes her to clots. This patient is a high risk. The patient will have an ultrasound of lower extremity to assess for deep vein thrombosis. If this is positive, followup imaging of the chest should be obtained. If the patient continues not to improve on treatment for chronic obstructive pulmonary disease exacerbation, CT of the chest should be considered. 4. Hypertension. Continue lisinopril, atenolol. We will monitor the patient' s blood pressure closely in that she is being started on diltiazem. 5. Hyperlipidemia. Continue Lipitor. 6. Hypothyroidism. Continue Synthroid. 7. Thrombocytosis and leukocytosis. The patient will be continued on 1500 mg of hydroxyurea, which appears to be effectively reducing her white blood cell and platelet counts compared to her previous admission. 8. DVT prophylaxis. Xarelto. 9. FEN. 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 10. Disposition. The patient is admitted to observation. 11. Code status. The patient is a full code. The patient would like her daughter, Sue Porter, to be her surrogate decision maker as above. TIME SPENT: Approximately 75 minutes was spent on this admission, 30 of which was spent [id number] with the patient obtaining history and physical and discussing treatment plan. This plan was discussed with my attending, Dr. Karmen Douglas, and she is in agreement. MARRY LAIRD [id number]/CPS #: [id number] MTDOrly
--- NOTE | 2017-10-23 07:13 | RAD ---
INDICATION: Unilateral right leg swelling. COMPARISON: Comparison is made with a prior study from May 17, 2012. TECHNIQUE: Multiple real-time, color flow and Doppler tracings of the right lower extremity were obtained. FINDINGS: The common femoral, femoral, profunda femoral and popliteal veins all demonstrate normal compressibility, augmentation with compression and phasic response with respiration. The mid femoral vein is duplicated. The posterior tibial and peroneal veins demonstrate normal compressibility and augmentation with compression. IMPRESSION: NO EVIDENCE FOR DEEP VENOUS THROMBOSIS.
--- NOTE | 2017-10-23 08:09 | RAD ---
INDICATION: Pneumonia COMPARISON: October 22, 2017 TECHNIQUE: An AP portable view obtained at 0555 hours is submitted. FINDINGS: Bones/Soft Tissues: There are no acute bony findings. Cardiomediastinal: The cardiomediastinal silhouette is normal. Lungs: There is worsening infiltrate in left lung base. There is mild airspace disease in right lung base. . Pleura: Small left-sided effusion. Other: None IMPRESSION: BIBASAL INFILTRATES LEFT GREATER THAN RIGHT WITH MILD WORSENING. SMALL LEFT-SIDED EFFUSION
[2017-10-23] MEDS: FLUoxetine CAP* 20 MG PO SCH (08:18)
[2017-10-23] MEDS: HydroxyUREA CAP* 500 MG CAP PO SCH (08:18)
[2017-10-23] MEDS: predniSONE TAB* 20 MG PO SCH (08:19)
[2017-10-23] MEDS: Lisinopril TAB* 10 MG PO SCH (08:19)
[2017-10-23] MEDS: Acetaminop/Codeine 30 MG TAB* 1 TAB (300 MG/30 MG) PO SCH ×2 (08:19→22:10)
[2017-10-23] MEDS: Rivaroxaban TAB(*) 20 MG TAB PO SCH (08:19)
[2017-10-23] MEDS: Multivitamins/Minerals TAB PO SCH (08:19)
[2017-10-23] MEDS: Cholecalciferol TAB* 1000 UNITS PO SCH (08:19)
[2017-10-23] MEDS: Magnesium Oxide TAB* 400 MG PO SCH (08:19)
[2017-10-23] MEDS: Fluticasone NASAL SPRAY 50MCG* 16 gm SPRAY BTL BOTH NARES SCH (08:19)
[2017-10-23] MEDS: Atenolol TAB* 25 MG PO SCH (08:20)
[2017-10-23] MEDS: Omeprazole CAP* 20 MG PO SCH (08:20)
[2017-10-23] MEDS: guaiFENesin ER TAB 600 MG PO SCH ×2 (08:20→22:09)
[2017-10-23] MEDS: Cetirizine* 10 MG TAB PO SCH (08:20)
[2017-10-23] MEDS: Mometasone/Formoter 200/5 MDI INH SCH ×2 (08:34→20:30)
[2017-10-23] MEDS: NS 0.9% 1000 ML* 1,000 ML IV SCH (14:06)
--- NOTE | 2017-10-23 16:11 | PN ---
Subjective Date of Service: 10/23/17 Interval History: Pt is feeling better today than yesterday but still quite SOB compared to baseline. She has had a dry hacking cough. She is not bringing up much from her lungs. She states walking to the bathroom is much easier today than yesterday. Objective Active Medications: Acetaminophen (Tylenol Tab*) 650 mg PO Q6H PRN PRN Reason: FEVER/PAIN Acetaminophen/Codeine Phosphate (Tylenol/Codeine 30 Mg Tab*) 1 tab PO BID [facility] Last Admin: 10/23/17 08:19 Dose: 1 tab Albuterol (Ventolin 2.5 Mg/3 Ml Neb.Ijeoma*) 2.5 mg INH Q2H PRN PRN Reason: SOB/WHEEZING Albuterol/Ipratropium (Duoneb (Albuterol 2.5 Mg/Ipratropium 0.5 Mg)) 1 neb INH [id number] AWAKE [facility] Last Admin: 10/23/17 15:23 Dose: 1 neb Atenolol (Tenormin Tab*) 25 mg PO DAILY [facility] Last Admin: 10/23/17 08:20 Dose: 25 mg Atorvastatin Calcium (Lipitor*) 10 mg PO BEDTIME SONJA Benzonatate (Tessalon Cap*) 100 mg PO BID PRN PRN Reason: COUGH Cetirizine HCl (Zyrtec*) 10 mg PO DAILY [facility] PRN Reason: Protocol Last Admin: 10/23/17 08:20 Dose: 10 mg Cholecalciferol (Vitamin D Tab*) 1,000 units PO DAILY [facility] Last Admin: 10/23/17 08:19 Dose: 1,000 units Clotrimazole (Mycelex Michael*) 10 mg PO FIVE TIMES DAILY [facility] Last Admin: 10/23/17 14:06 Dose: 10 mg Cyanocobalamin (Vitamin B12 Tab*) 1,000 mcg PO EVERY OTHER DAY [facility] Docusate Sodium (Colace Cap*) 100 mg PO BID PRN PRN Reason: CONSTIPATION Doxycycline Hyclate (Vibramycin Cap(*)) 100 mg PO BID [facility] Fluoxetine HCl (Prozac Cap*) 40 mg PO DAILY [facility] Last Admin: 10/23/17 08:18 Dose: 40 mg Fluticasone Propionate (Flonase Nasal [place] 50mcg*) 2 spray BOTH NARES DAILY [facility] Last Admin: 10/23/17 08:19 Dose: 2 spray Guaifenesin (Mucinex*) 1,200 mg PO BID [facility] Last Admin: 10/23/17 08:20 Dose: 1,200 mg Hydroxyurea (Hydrea Cap*) 1,500 mg PO DAILY [facility] Last Admin: 10/23/17 08:18 Dose: 1,500 mg Sodium Chloride (Ns 0.9% 1000 Ml*) 1,000 mls @ 75 mls/hr IV PER RATE SONJA Stop: 10/24/17 11:04 Last Admin: 10/23/17 14:06 Dose: 75 mls/hr Ceftriaxone Sodium 1 gm/ (Sodium Chloride) 50 mls @ 200 mls/hr IVPB Q24H [facility] Levothyroxine Sodium (Synthroid Tab*) 112 mcg PO 0600 [facility] Last Admin: 10/23/17 05:57 Dose: 112 mcg Lisinopril (Prinivil Tab*) 40 mg PO DAILY [facility] Last Admin: 10/23/17 08:19 Dose: 40 mg Loperamide HCl (Imodium Cap*) 2 mg PO TID PRN PRN Reason: DIARRHEA Lorazepam (Ativan Tab(*)) 0.25 mg PO BEDTIME PRN PRN Reason: ANXIETY Magnesium Oxide (Magox 400 Tab*) 400 mg PO DAILY [facility] Last Admin: 10/23/17 08:19 Dose: 400 mg Mometasone Furoate/Formoterol Fumar (Dulera 200/5 Mdi*) 2 puff INH BID [facility] PRN Reason: Protocol Last Admin: 10/23/17 08:34 Dose: Not Given Montelukast Sodium (Singulair Tab*) 10 mg PO BEDTIME [facility] Multivitamins/Minerals (Theragran/Minerals Tab*) 1 tab PO DAILY [facility] Last Admin: 10/23/17 08:19 Dose: 1 tab Omeprazole (Prilosec Cap*) 20 mg PO 0730 [facility] Last Admin: 10/23/17 08:20 Dose: 20 mg Ondansetron HCl (Zofran 40 Mg Vial*) 4 mg IV Q6H PRN PRN Reason: NAUSEA Prednisone (Deltasone Tab*) 60 mg PO DAILY [facility] Last Admin: 10/23/17 08:19 Dose: 60 mg Rivaroxaban (Xarelto(*)) 20 mg PO DAILY [facility] Last Admin: 10/23/17 08:19 Dose: 20 mg Vital Signs - 8 hr 10/23/17 10/23/17 10/23/17 08:19 08:28 10:27 Temperature Pulse Rate 74 Respiratory 20 18 20 Rate Blood Pressure (mmHg) O2 Sat by Pulse 93 Oximetry 10/23/17 10/23/17 10/23/17 11:35 11:46 15:24 Temperature 97.4 F Pulse Rate 72 Respiratory 20 14 18 Rate Blood Pressure 109/43 (mmHg) O2 Sat by Pulse 94 Oximetry 10/23/17 15:28 Temperature 98.4 F Pulse Rate 73 Respiratory 22 Rate Blood Pressure 103/29 (mmHg) O2 Sat by Pulse 100 Oximetry Oxygen Devices in Use Now: Nasal Cannula Appearance: Elderly female sitting up in bed, NAD Eyes: No Scleral Icterus Ears/Nose/Mouth/Throat: Mucous Membranes Moist Respiratory: Symmetrical Chest Expansion and Respiratory Effort, Clear to Auscultation - diminished breath sounds in all lung krueger Cardiovascular: NL Sounds; No Murmurs; No JVD, RRR, No Edema Abdominal: NL Sounds; No Tenderness; No Distention Extremities: No Clubbing, Cyanosis Skin: No Nodules or Sclerosis Neurological: Alert and Oriented x 3 Result Diagrams: 10/23/17 04:13 10/23/17 04:13 Assess/Plan/Problems-Billing Ms Keita is a 77 yo F who has a h/o O2 dependent COPD and chronic hypoxic respiratory failure, afib, HTN, HLD, and chronic leukocytosis and thrombocytopenia who presented to the ER with c/o severe SOB and was admitted for a COPD exacerbation. - Patient Problems (1) COPD exacerbation Current Visit: Yes Status: Acute Code(s): J44.1 - CHRONIC OBSTRUCTIVE PULMONARY DISEASE W (ACUTE) EXACERBATION SNOMED Code(s): 478348663031604 Comment: Improving slowly. Will start ceftriaxone and doxycycline as CXR shows bibasilar infiltrates. While procalcitonin is negative for now will utilize Abx. Continue standing nebs and prednisone. Reasses tomorrow for continued need to be in the hospital. (2) Atrial fibrillation Current Visit: Yes Status: Acute Code(s): I48.91 - UNSPECIFIED ATRIAL FIBRILLATION SNOMED Code(s): 35314739 Comment: No further runs of afib. Continue atenolol and xarelto. I suspect her afib worsened secondary to her respiratory distress that she had on admission. (3) Essential thrombocythemia Current Visit: Yes Status: Acute Code(s): D47.3 - ESSENTIAL (HEMORRHAGIC) THROMBOCYTHEMIA SNOMED Code(s): 622783821 Comment: PLT count normal today but it has been steadily dropping since early this month likely when her hydrea was increased. Anemia is stable. Follow up CBC tomorrow. (4) History of pulmonary embolus (PE) Current Visit: Yes Status: Acute Code(s): Z86.711 - PERSONAL HISTORY OF PULMONARY EMBOLISM SNOMED Code(s): 490186505 Comment: Continue xarelto. (5) Hyperlipidemia Current Visit: Yes Status: Acute Code(s): E78.5 - HYPERLIPIDEMIA, UNSPECIFIED SNOMED Code(s): 86269822 Comment: Continue lipitor. (6) DVT prophylaxis Current Visit: Yes Status: Acute Code(s): SEN3373 - SNOMED Code(s): 457302688 Comment: xarelto (7) Full code status Current Visit: Yes Status: Acute Code(s): Z78.9 - OTHER SPECIFIED HEALTH STATUS SNOMED Code(s): 590634301
[2017-10-23] MEDS: cefTRIAXone(*) 1 GM in NS 0.9% 50 ML* 50 ML IVPB SCH (16:55)
[2017-10-23] MEDS: DOXYcycline CAP(*) 100 MG PO SCH (22:09)
[2017-10-23] MEDS: Atorvastatin* 10 MG TAB PO SCH (22:11)
[2017-10-23] MEDS: Montelukast Sodium TAB* 10 MG PO SCH (22:11)
[2017-10-24] MEDS: LORazepam TAB(*) 0.5 MG PO PRN ×2 (00:37→22:55)
[2017-10-24] MEDS: Albuterol/Ipratropium NEB.SOL* Albuterol 2.5 MG/Ipratropium 0.5 MG 3 ML INH SCH ×6 (03:36→23:29)
[2017-10-24] MEDS: Benzonatate CAP* 100 MG PO PRN ×2 (04:21→08:13)
[2017-10-24] MEDS: Levothyroxine TAB* 112 MCG TAB PO SCH (05:50)
[2017-10-24] MEDS: Clotrimazole TROCHE* 10 MG TROCHE PO SCH ×5 (05:51→21:16)
[2017-10-24 06:42] LABS: ABS Basophils 0 10^3/ul (0-0.2); ABS Eosinophils 0 10^3/ul (0-0.6); ABS Lymphocytes 6.4 10^3/ul (1.0-4.8); ABS Monocytes 0.3 10^3/ul (0-0.8); ABS Neutrophils 12.6 10^3/ul (1.5-7.7); ABS Nucleated RBC 0 10^3/ul; Eosinophil % 0 % (0-6); Hematocrit 23 % (35-47); Hemoglobin 7.6 g/dl (12.0-16.0); Mean Corpuscular HGB Conc 33 g/dl (31-36); Mean Corpuscular Hemoglobin 40 pg (27-31); Mean Corpuscular Volume 122 fL (80-97); Mean Platelet Volume 10.3 um3 (7.4-10.4); Nucleated Red Blood Cells % 0.1; Platelet Count 428 10^3/ul (150-450); Red Blood Count 1.89 10^6/ul (4.00-5.40); Red Cell Distribution Width 18 % (10.5-15); White Blood Count 19.4 10^3/ul (3.5-10.8)
[2017-10-24 06:59] LABS: EGFR Non-African American 68.2 (>60)
[2017-10-24] MEDS ORDERED: LORazepam TAB(*) 0.5 MG PO ONE (08:20)
[2017-10-24] MEDS: Mometasone/Formoter 200/5 MDI INH SCH ×2 (08:22→19:47)
[2017-10-24] MEDS: Atenolol TAB* 25 MG PO SCH ×2 (08:40→14:45)
[2017-10-24] MEDS: Lisinopril TAB* 10 MG PO SCH (08:40)
[2017-10-24] MEDS ORDERED: Potassium Chloride LIQUID* 20 MEQ PACKET PO ONE (08:52)
[2017-10-24] MEDS: Rivaroxaban TAB(*) 20 MG TAB PO SCH (08:56)
[2017-10-24] MEDS: DOXYcycline CAP(*) 100 MG PO SCH ×2 (08:56→21:16)
[2017-10-24] MEDS: predniSONE TAB* 20 MG PO SCH (08:56)
[2017-10-24] MEDS: Cholecalciferol TAB* 1000 UNITS PO SCH (08:56)
--- NOTE | 2017-10-24 08:56 | PN ---
Subjective Date of Service: 10/24/17 Interval History: Pt is feeling quite poor currently. She states she was awakened to have her vital signs obtained and then began to cough. She states she then got depressed , started crying, became anxious and now is very SOB. Respiratory therapy noted increased wheezing and WOB and contacted me for possible transfer to the ICU. Objective Active Medications: Acetaminophen (Tylenol Tab*) 650 mg PO Q6H PRN PRN Reason: FEVER/PAIN Acetaminophen/Codeine Phosphate (Tylenol/Codeine 30 Mg Tab*) 1 tab PO BID [facility] Last Admin: 10/23/17 22:10 Dose: 1 tab Albuterol (Ventolin 2.5 Mg/3 Ml Neb.Ijeoma*) 2.5 mg INH Q2H PRN PRN Reason: SOB/WHEEZING Albuterol/Ipratropium (Duoneb (Albuterol 2.5 Mg/Ipratropium 0.5 Mg)) 1 neb INH [id number] AWAKE [facility] Last Admin: 10/24/17 08:22 Dose: 1 neb Atenolol (Tenormin Tab*) 25 mg PO DAILY [facility] Last Admin: 10/24/17 08:40 Dose: Not Given Atorvastatin Calcium (Lipitor*) 10 mg PO BEDTIME [facility] Last Admin: 10/23/17 22:11 Dose: 10 mg Benzonatate (Tessalon Cap*) 100 mg PO BID PRN PRN Reason: COUGH Last Admin: 10/24/17 08:13 Dose: 100 mg Cetirizine HCl (Zyrtec*) 10 mg PO DAILY SONJA PRN Reason: Protocol Last Admin: 10/23/17 08:20 Dose: 10 mg Cholecalciferol (Vitamin D Tab*) 1,000 units PO DAILY [facility] Last Admin: 10/23/17 08:19 Dose: 1,000 units Clotrimazole (Mycelex Michael*) 10 mg PO FIVE TIMES DAILY [facility] Last Admin: 10/24/17 05:51 Dose: Not Given Cyanocobalamin (Vitamin B12 Tab*) 1,000 mcg PO EVERY OTHER DAY [facility] Docusate Sodium (Colace Cap*) 100 mg PO BID PRN PRN Reason: CONSTIPATION Doxycycline Hyclate (Vibramycin Cap(*)) 100 mg PO BID [facility] Last Admin: 10/23/17 22:09 Dose: 100 mg Fluoxetine HCl (Prozac Cap*) 40 mg PO DAILY [facility] Last Admin: 10/23/17 08:18 Dose: 40 mg Fluticasone Propionate (Flonase Nasal [place] 50mcg*) 2 spray BOTH NARES DAILY [facility] Last Admin: 10/23/17 08:19 Dose: 2 spray Guaifenesin (Mucinex*) 1,200 mg PO BID [facility] Last Admin: 10/23/17 22:09 Dose: 1,200 mg Hydroxyurea (Hydrea Cap*) 1,500 mg PO DAILY [facility] Last Admin: 10/23/17 08:18 Dose: 1,500 mg Ceftriaxone Sodium 1 gm/ (Sodium Chloride) 50 mls @ 200 mls/hr IVPB Q24H [facility] Last Admin: 10/23/17 16:55 Dose: 200 mls/hr Levothyroxine Sodium (Synthroid Tab*) 112 mcg PO 0600 [facility] Last Admin: 10/24/17 05:50 Dose: 112 mcg Lisinopril (Prinivil Tab*) 40 mg PO DAILY [facility] Last Admin: 10/24/17 08:40 Dose: Not Given Loperamide HCl (Imodium Cap*) 2 mg PO TID PRN PRN Reason: DIARRHEA Lorazepam (Ativan Tab(*)) 0.25 mg PO BEDTIME PRN PRN Reason: ANXIETY Last Admin: 10/24/17 00:37 Dose: 0.25 mg Magnesium Oxide (Magox 400 Tab*) 400 mg PO DAILY [facility] Last Admin: 10/23/17 08:19 Dose: 400 mg Mometasone Furoate/Formoterol Fumar (Dulera 200/5 Mdi*) 2 puff INH BID [facility] PRN Reason: Protocol Last Admin: 10/24/17 08:22 Dose: 2 puff Montelukast Sodium (Singulair Tab*) 10 mg PO BEDTIME [facility] Last Admin: 10/23/17 22:11 Dose: 10 mg Multivitamins/Minerals (Theragran/Minerals Tab*) 1 tab PO DAILY [facility] Last Admin: 10/23/17 08:19 Dose: 1 tab Omeprazole (Prilosec Cap*) 20 mg PO 0730 [facility] Last Admin: 10/23/17 08:20 Dose: 20 mg Ondansetron HCl (Zofran 40 Mg Vial*) 4 mg IV Q6H PRN PRN Reason: NAUSEA Potassium Chloride (Klor-Con Liquid*) 40 meq PO ONCE ONE Stop: 10/24/17 08:53 Prednisone (Deltasone Tab*) 60 mg PO DAILY [facility] Last Admin: 10/23/17 08:19 Dose: 60 mg Rivaroxaban (Xarelto(*)) 20 mg PO DAILY [facility] Last Admin: 10/23/17 08:19 Dose: 20 mg Vital Signs - 8 hr 10/24/17 10/24/17 10/24/17 03:18 03:37 04:03 Temperature 98.8 F Pulse Rate 95 117 Respiratory 18 20 18 Rate Blood Pressure 125/36 (mmHg) O2 Sat by Pulse 98 96 Oximetry 10/24/17 10/24/17 10/24/17 07:49 08:24 08:38 Temperature 98.3 F Pulse Rate 92 124 Respiratory 20 22 24 Rate Blood Pressure 94/51 (mmHg) O2 Sat by Pulse 97 96 Oximetry Oxygen Devices in Use Now: Nasal Cannula - 10L Appearance: Elderly female sitting up in bed, mildly tachypnic, slightly anxious appearing. Eyes: No Scleral Icterus Ears/Nose/Mouth/Throat: Mucous Membranes Moist Respiratory: Symmetrical Chest Expansion and Respiratory Effort, Clear to Auscultation - breath sounds are mildly diminished, few high pitched wheezes Cardiovascular: NL Sounds; No Murmurs; No JVD, RRR, No Edema Abdominal: NL Sounds; No Tenderness; No Distention Extremities: No Clubbing, Cyanosis Skin: No Nodules or Sclerosis Neurological: Alert and Oriented x 3 Result Diagrams: 10/24/17 06:18 10/24/17 06:18 Assess/Plan/Problems-Billing Ms Keita is a 77 yo F who has a h/o O2 dependent COPD and chronic hypoxic respiratory failure, afib, HTN, HLD, and chronic leukocytosis and thrombocytopenia who presented to the ER with c/o severe SOB and was admitted for a COPD exacerbation. - Patient Problems (1) COPD exacerbation Current Visit: Yes Status: Acute Code(s): J44.1 - CHRONIC OBSTRUCTIVE PULMONARY DISEASE W (ACUTE) EXACERBATION SNOMED Code(s): 041741723801268 Comment: Pt had a set back this AM. I suspect it is related to anxiety. I have ordered ativan 0.5mg po x1now. Continue prednisone and ceftriaxone/ azithromycin. Transfer to the ICU for vapotherm as currently her RR is elevated in the low 30's and she is on 10L O2. CBC shows increased WBC count again today- I suspect secondary to steroids. Will continue to monitor. (2) Atrial fibrillation Current Visit: Yes Status: Acute Code(s): I48.91 - UNSPECIFIED ATRIAL FIBRILLATION SNOMED Code(s): 86998109 Comment: Pt is back in rapid afib this AM with a HR in the 130's. Her BP is currently soft. Will work on improving her respiratory status and then see if calming down her breathing leads to improvement in her HR/BP. Will continue xarelto and likely resume atenolol later this AM. (3) Essential thrombocythemia Current Visit: Yes Status: Acute Code(s): D47.3 - ESSENTIAL (HEMORRHAGIC) THROMBOCYTHEMIA SNOMED Code(s): 852298847 Comment: Platelets in normal range. Anemia worsened today. Will ask for hematology evaluation. (4) History of pulmonary embolus (PE) Current Visit: Yes Status: Acute Code(s): Z86.711 - PERSONAL HISTORY OF PULMONARY EMBOLISM SNOMED Code(s): 792712776 Comment: Continue xarelto. (5) Hyperlipidemia Current Visit: Yes Status: Acute Code(s): E78.5 - HYPERLIPIDEMIA, UNSPECIFIED SNOMED Code(s): 62494546 Comment: Continue lipitor. (6) DVT prophylaxis Current Visit: Yes Status: Acute Code(s): FEG7494 - SNOMED Code(s): 362100623 Comment: xarelto (7) Full code status Current Visit: Yes Status: Acute Code(s): Z78.9 - OTHER SPECIFIED HEALTH STATUS SNOMED Code(s): 897664269
[2017-10-24] MEDS: HydroxyUREA CAP* 500 MG CAP PO SCH (08:58)
[2017-10-24] MEDS: Omeprazole CAP* 20 MG PO SCH (08:58)
[2017-10-24] MEDS: Magnesium Oxide TAB* 400 MG PO SCH (08:58)
[2017-10-24] MEDS: FLUoxetine CAP* 20 MG PO SCH (09:00)
[2017-10-24] MEDS: Cyanocobalamin TAB* 500 MCG PO SCH (09:00)
[2017-10-24] MEDS: Multivitamins/Minerals TAB PO SCH (09:00)
[2017-10-24] MEDS: Acetaminop/Codeine 30 MG TAB* 1 TAB (300 MG/30 MG) PO SCH ×2 (09:00→21:15)
[2017-10-24] MEDS: Cetirizine* 10 MG TAB PO SCH (09:01)
[2017-10-24] MEDS: guaiFENesin ER TAB 600 MG PO SCH ×2 (09:53→21:15)
--- NOTE | 2017-10-24 11:33 | CONSULT ---
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 Patient has unfortunately been hospitalized on numerous occasions for COPD exacerbations. During her last hospitalization, 3 weeks ago, hematology consultation was requested as her platelets had climbed to >1,000,000. Her hydrea was increased from 1000 mg to 1500 mg at that time. She has continued the 1500 mg since that time. She was scheduled to see Dr Ram in follow up 10/22, but was unable to make that appointment. It is difficult for her to say how she has been feeling since increasing the hydrea due to her chronic and worsening respiratory symptoms. She has complained of increased fatigue at 1500 mg in the past. She now has worsening anemia and mild leukocytosis. Platelet count is ~450, 000. No recent bleeding. 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 Iron studies were completed earlier this month which demonstrate deficiency. Her ferritin was slightly high at that time, but likely as an acute phase reactant secondary to acute infection at that time. Allergies/Medications Medication: Home Medications Medication Instructions Recorded Confirmed Type Atorvastatin* [Lipitor 10 MG*] 10 mg PO BEDTIME 05/14/12 10/22/17 History FLUoxetine CAP* [Prozac CAP*] 40 mg PO DAILY 05/14/12 10/22/17 History Montelukast Sodium TAB* [Singulair 10 mg PO BEDTIME 05/14/12 10/22/17 History 10 MG TAB*] Omeprazole CAP* [Prilosec CAP* 20 20 mg PO DAILY 05/14/12 10/22/17 History MG] Alendronate (NF) [Fosamax (NF)] 70 mg PO .EVERY Sunday09/07/14 10/22/17 History Levothyroxine TAB* [Synthorid 112 112 mcg PO DAILY 09/07/14 10/22/17 History MCG TAB*] Albuterol/Ipratropium RESP(NF) 1 puff INH TID PRN 05/25/15 10/22/17 History [Combivent Respimat (NF)] Budesonide/Formote 160/4.5(NF) 2 puff INH BID 08/09/16 10/22/17 History [Symbicort 160/4.5 (NF)] Calcium Carbonate/Vitamin D3 1 tab PO DAILY 08/09/16 10/22/17 History [Calcium 600-Vit D3 200 Tablet] Furosemide TAB* [Lasix TAB*] 20 mg PO MOWEFR 08/09/16 10/22/17 History Ipratropium [place] 2 spray NASAL TID PRN 08/09/16 10/22/17 History Albuterol 2.5MG/3ML (0.083%)* 2.5 mg INH Q6H PRN 11/20/16 10/22/17 History [Ventolin 2.5 MG/3 ML NEB.GAVIN*] Cholecalciferol TAB* [Vitamin D 1,000 units PO DAILY 11/20/16 10/22/17 History TAB*] Cyanocobalamin TAB* [Vitamin B12 1,000 mcg PO EVERY OTHER DAY 11/20/16 10/22/17 History TAB*] Docusate CAP* [Colace Cap*] 100 - 200 mg PO BID PRN 11/20/16 10/22/17 History Fluticasone NASAL SPRAY 50MCG* 2 spray BOTH NARES DAILY 11/20/16 10/22/17 History [Flonase NASAL SPRAY 50MCG*] Ipratropium 0.5MG/2.5ML NEB* 0.5 mg INH TID PRN 11/20/16 10/22/17 History [Atrovent 0.5 MG NEB.GAVIN*] Iron Ps Complex/B12/Folic Acid 150 mg PO DAILY 11/20/16 10/22/17 History [Poly-Iron 150 Forte Capsule] LORazepam TAB(*) [Ativan 0.5 MG 0.25 - 0.5 mg PO BEDTIME PRN 11/20/16 10/22/17 History TAB (*)] Magnesium Oxide TAB* [MagOx 400 400 mg PO DAILY 11/20/16 10/22/17 History TAB*] Multivitamins/Minerals TAB* 1 tab PO DAILY 11/20/16 10/22/17 History [Theragran/minerals TAB*] Rivaroxaban TAB(*) [Xarelto 20 mg] 20 mg PO DAILY 11/20/16 10/22/17 History Tiotropium CAP.INH* [Spiriva 1 cap INH DAILY PRN 11/20/16 10/22/17 History CAP.INH*] guaiFENesin LIQ* [Robitussin*] 10 ml PO QID PRN 11/20/16 10/22/17 History Atenolol TAB* [Tenormin TAB* 25 MG] 25 mg PO DAILY #30 tab 11/23/16 10/22/17 Rx Acetaminophen [Acetaminophen Extra 1,000 mg PO Q8H 07/03/17 10/22/17 History Strength] Albuterol HFA INHALER* [Ventolin 2 puff INH Q4H PRN 07/03/17 10/22/17 History HFA Inhaler*] Cetirizine* [ZyrTEC 10 MG TAB*] 10 mg PO DAILY 07/03/17 10/22/17 History Lisinopril TAB* [Prinivil TAB 10 40 mg PO DAILY 07/03/17 10/22/17 History MG*] Loperamide CAP* [Imodium CAP*] 2 mg PO TID PRN 07/03/17 10/22/17 History Propylene Glycol/Peg 400/Pf 1 drop BOTH EYES QID PRN 07/03/17 10/22/17 History [Systane 0.3-0.4% Eye Drops] HydroxyUREA CAP* [Hydrea CAP*] 1,500 mg PO DAILY #90 cap 10/07/17 10/22/17 Rx Acetaminophen with Codeine 1 tab PO BID 10/22/17 10/22/17 History [Acetaminophen/Codeine [place] 300-30 mg] Hospital Medications: Acetaminophen (Tylenol Tab*) 650 mg PO Q6H PRN PRN Reason: FEVER/PAIN Acetaminophen/Codeine Phosphate (Tylenol/Codeine 30 Mg Tab*) 1 tab PO BID [facility] 234 BEDS AT [facility] Last Admin: 10/24/17 09:00 Dose: 1 tab Albuterol (Ventolin 2.5 Mg/3 Ml Neb.Gavin*) 2.5 mg INH Q2H PRN PRN Reason: SOB/WHEEZING Albuterol/Ipratropium (Duoneb (Albuterol 2.5 Mg/Ipratropium 0.5 Mg)) 1 neb INH [id number] AWAKE COUNTS [facility]CLUDE 234 BEDS AT [facility] Last Admin: 10/24/17 08:22 Dose: 1 neb Atenolol (Tenormin Tab*) 25 mg PO DAILY [facility]CLUDE 234 BEDS AT [facility] Last Admin: 10/24/17 08:40 Dose: Not Given Atorvastatin Calcium (Lipitor*) 10 mg PO BEDTIME [facility]S [facility]CLUDE 234 BEDS AT [facility] Last Admin: 10/23/17 22:11 Dose: 10 mg Benzonatate (Tessalon Cap*) 100 mg PO BID PRN PRN Reason: COUGH Last Admin: 10/24/17 08:13 Dose: 100 mg Cetirizine HCl (Zyrtec*) 10 mg PO DAILY SONJA PRN Reason: Protocol Last Admin: 10/24/17 09:01 Dose: 10 mg Cholecalciferol (Vitamin D Tab*) 1,000 units PO DAILY [facility]S [facility]CLUDE 234 BEDS AT [facility] Last Admin: 10/24/17 08:56 Dose: 1,000 units Clotrimazole (Mycelex Michael*) 10 mg PO FIVE TIMES DAILY [facility]CLUDE 234 BEDS AT [facility] Last Admin: 10/24/17 05:51 Dose: Not Given Cyanocobalamin (Vitamin B12 Tab*) 1,000 mcg PO EVERY OTHER DAY [facility]S INCLUDE 234 BEDS AT [facility] Last Admin: 10/24/17 09:00 Dose: 1,000 mcg Docusate Sodium (Colace Cap*) 100 mg PO BID PRN PRN Reason: CONSTIPATION Doxycycline Hyclate (Vibramycin Cap(*)) 100 mg PO BID [facility]CLUDE 234 BEDS AT [facility] Last Admin: 10/24/17 08:56 Dose: 100 mg Fluoxetine HCl (Prozac Cap*) 40 mg PO DAILY [facility]S [facility]CLUDE 234 BEDS AT [facility] Last Admin: 10/24/17 09:00 Dose: 40 mg Fluticasone Propionate (Flonase Nasal [place] 50mcg*) 2 spray BOTH NARES DAILY [facility]S [facility]CLUDE 234 BEDS AT [facility] Last Admin: 10/23/17 08:19 Dose: 2 spray Guaifenesin (Mucinex*) 1,200 mg PO BID [facility]S [facility]CLUDE 234 BEDS AT [facility] Last Admin: 10/24/17 09:53 Dose: 1,200 mg Hydroxyurea (Hydrea Cap*) 1,500 mg PO DAILY [facility]S INCLUDE 234 BEDS AT [facility] Last Admin: 10/24/17 08:58 Dose: 1,500 mg Ceftriaxone Sodium 1 gm/ (Sodium Chloride) 50 mls @ 200 mls/hr IVPB Q24H COUNTS INCLUDE 234 BEDS AT THE [facility] Last Admin: 10/23/17 16:55 Dose: 200 mls/hr Levothyroxine Sodium (Synthroid Tab*) 112 mcg PO 0600 COUNTS INCLUDE 234 BEDS AT [facility] Last Admin: 10/24/17 05:50 Dose: 112 mcg Lisinopril (Prinivil Tab*) 40 mg PO DAILY [facility]S INCLUDE 234 BEDS AT [facility] Last Admin: 10/24/17 08:40 Dose: Not Given Loperamide HCl (Imodium Cap*) 2 mg PO TID PRN PRN Reason: DIARRHEA Lorazepam (Ativan Tab(*)) 0.25 mg PO BEDTIME PRN PRN Reason: ANXIETY Last Admin: 10/24/17 00:37 Dose: 0.25 mg Magnesium Oxide (Magox 400 Tab*) 400 mg PO DAILY [facility]S INCLUDE 234 BEDS AT [facility] Last Admin: 10/24/17 08:58 Dose: 400 mg Mometasone Furoate/Formoterol Fumar (Dulera 200/5 Mdi*) 2 puff INH BID [facility] INCLUDE 234 BEDS AT THE [facility] PRN Reason: Protocol Last Admin: 10/24/17 08:22 Dose: 2 puff Montelukast Sodium (Singulair Tab*) 10 mg PO BEDTIME COUNTS INCLUDE 234 BEDS AT [facility] Last Admin: 10/23/17 22:11 Dose: 10 mg Multivitamins/Minerals (Theragran/Minerals Tab*) 1 tab PO DAILY [facility]S INCLUDE 234 BEDS AT [facility] Last Admin: 10/24/17 09:00 Dose: 1 tab Omeprazole (Prilosec Cap*) 20 mg PO 0730 COUNTS INCLUDE 234 BEDS AT THE [facility] Last Admin: 10/24/17 08:58 Dose: 20 mg Ondansetron HCl (Zofran 40 Mg Vial*) 4 mg IV Q6H PRN PRN Reason: NAUSEA Prednisone (Deltasone Tab*) 60 mg PO DAILY [facility]S INCLUDE 234 BEDS AT [facility] Last Admin: 10/24/17 08:56 Dose: 60 mg Rivaroxaban (Xarelto(*)) 20 mg PO DAILY COUNTS INCLUDE 234 BEDS AT [facility] Last Admin: 10/24/17 08:56 Dose: 20 mg Allergies/Adverse Reactions: Allergies Allergy/AdvReac Type Severity Reaction Status Date / Time amlodipine [From Norvasc] Allergy See Comment Verified 10/22/17 17:02 azithromycin [From Zithromax] Allergy Diarrhea Verified 10/22/17 17:02 clarithromycin [From Biaxin] Allergy Hives Verified 10/22/17 17:02 garlic Allergy Diarrhea Verified 10/22/17 17:02 Review of Systems - Review of Systems Constitutional Symptoms: Positive: Fatigue Pulmonary: Positive: Cough, Respiratory Distress, COPD Cardiology: Positive: Shortness of Breath Hematologic/Lymphatic: Positive: Other - ET Physical Exam - Physical Exam Physical Examination: Gen: Pleasant 77 yo female on Vapotherm in ICU in [facility] HEENT: MMM CV: RRR, no m/r/g Resp: few rhonchi, reduced breath sounds Abd: soft, nonTTP Ext: no edema Skin: healing wound over L GT, ecchymosis of R GT Results - Lab Results Lab Results: 10/24/17 10/24/17 06:18 06:18 WBC 19.4 H RBC 1.89 L Hgb 7.6 L Hct 23 L MCV 122 H MCH 40 H MCHC 33 RDW 18 H Plt Count 428 MPV 10.3 Neut % (Auto) 65.1 Lymph % (Auto) 33.0 [place] % (Auto) 1.6 Eos % (Auto) 0 Baso % (Auto) 0.3 Absolute Neuts (auto) 12.6 H Absolute Lymphs (auto) 6.4 H Absolute Monos (auto) 0.3 Absolute Eos (auto) 0 Absolute Basos (auto) 0 Absolute Nucleated RBC 0 Nucleated RBC % 0.1 Sodium 136 Potassium 3.4 L Chloride 104 Carbon Dioxide 26 Anion Gap 6 BUN 15 Creatinine 0.81 Est GFR ( Amer) 87.7 Est GFR (Non-Af Amer) 68.2 BUN/Creatinine Ratio 18.5 Glucose 198 H Calcium 8.2 L Assessment and Plan Impression: 77 yo female with CALR positive ET on hydrea now hospitalized with a COPD exacerbation. Hematology consultation requested in the setting of worsening anemia. Plan: 1. Essential thrombocytosis - decrease HU to 1000 mg daily - follow up with hematology following discharge 2. Anemia - likely multifactorial related to suppression from HU and some iron deficiency - will decrease HU to 1000 mg daily - transfuse for Hgb <7.5 g/dl or new symptoms - will arrange for iron infusion following discharge 3. COPD exacerbation - management per hospitalist group
[2017-10-24] MEDS: Fluticasone NASAL SPRAY 50MCG* 16 gm SPRAY BTL BOTH NARES SCH (14:46)
[2017-10-24] MEDS: cefTRIAXone(*) 1 GM in NS 0.9% 50 ML* 50 ML IVPB SCH (16:35)
--- NOTE | 2017-10-24 19:57 | PN ---
Progress Note - Progress Note Date of Service: 10/24/17 Note: Persistent urinary retention leading to several straight caths, will order escalante catheter
[2017-10-24] MEDS: Atorvastatin* 10 MG TAB PO SCH (21:15)
[2017-10-24] MEDS: Montelukast Sodium TAB* 10 MG PO SCH (21:16)
[2017-10-25] MEDS: Benzonatate CAP* 100 MG PO PRN (01:34)
[2017-10-25] MEDS: Albuterol/Ipratropium NEB.SOL* Albuterol 2.5 MG/Ipratropium 0.5 MG 3 ML INH SCH ×3 (03:10→11:37)
[2017-10-25] MEDS: Levothyroxine TAB* 112 MCG TAB PO SCH (05:42)
[2017-10-25] MEDS: Clotrimazole TROCHE* 10 MG TROCHE PO SCH ×5 (05:42→22:28)
[2017-10-25 05:46] LABS: Hematocrit 22 % (35-47); Hemoglobin 7.2 g/dl (12.0-16.0); Mean Corpuscular HGB Conc 32 g/dl (31-36); Mean Corpuscular Hemoglobin 39 pg (27-31); Mean Corpuscular Volume 122 fL (80-97); Mean Platelet Volume 10.1 um3 (7.4-10.4); Platelet Count 456 10^3/ul (150-450); Red Blood Count 1.84 10^6/ul (4.00-5.40); Red Cell Distribution Width 18 % (10.5-15)
[2017-10-25 05:52] LABS: EGFR Non-African American 65.4 (>60)
[2017-10-25] MEDS: Mometasone/Formoter 200/5 MDI INH SCH ×2 (08:13→19:26)
[2017-10-25] MEDS: Atenolol TAB* 25 MG PO SCH (09:27)
[2017-10-25] MEDS: Acetaminop/Codeine 30 MG TAB* 1 TAB (300 MG/30 MG) PO SCH ×2 (09:27→20:47)
[2017-10-25] MEDS: FLUoxetine CAP* 20 MG PO SCH (09:27)
[2017-10-25] MEDS: Lisinopril TAB* 10 MG PO SCH (09:27)
[2017-10-25] MEDS: predniSONE TAB* 20 MG PO SCH (09:27)
[2017-10-25] MEDS: DOXYcycline CAP(*) 100 MG PO SCH ×2 (09:27→20:48)
[2017-10-25] MEDS: Rivaroxaban TAB(*) 20 MG TAB PO SCH (09:28)
[2017-10-25] MEDS: Multivitamins/Minerals TAB PO SCH (09:28)
[2017-10-25] MEDS: guaiFENesin ER TAB 600 MG PO SCH ×2 (09:28→20:48)
[2017-10-25] MEDS: Cholecalciferol TAB* 1000 UNITS PO SCH (09:28)
[2017-10-25] MEDS: Magnesium Oxide TAB* 400 MG PO SCH (09:28)
[2017-10-25] MEDS: Omeprazole CAP* 20 MG PO SCH (09:28)
[2017-10-25] MEDS: Cetirizine* 10 MG TAB PO SCH (09:29)
[2017-10-25] MEDS: HydroxyUREA CAP* 500 MG CAP PO SCH (09:29)
[2017-10-25] MEDS: Fluticasone NASAL SPRAY 50MCG* 16 gm SPRAY BTL BOTH NARES SCH (09:36)
--- NOTE | 2017-10-25 11:21 | PN ---
Subjective Date of Service: 10/25/17 Interval History: Pt is feeling better today. No further anxiety attacks. She feels her breathing is stable. She has still been coughing quite a bit. Objective Active Medications: Acetaminophen (Tylenol Tab*) 650 mg PO Q6H PRN PRN Reason: FEVER/PAIN Acetaminophen/Codeine Phosphate (Tylenol/Codeine 30 Mg Tab*) 1 tab PO BID [facility] Last Admin: 10/25/17 09:27 Dose: 1 tab Albuterol (Ventolin 2.5 Mg/3 Ml Neb.Ijeoma*) 2.5 mg INH Q2H PRN PRN Reason: SOB/WHEEZING Albuterol/Ipratropium (Duoneb (Albuterol 2.5 Mg/Ipratropium 0.5 Mg)) 1 neb INH [id number] AWAKE [facility] Last Admin: 10/25/17 08:12 Dose: 1 neb Atenolol (Tenormin Tab*) 25 mg PO DAILY [facility] Last Admin: 10/25/17 09:27 Dose: 25 mg Atorvastatin Calcium (Lipitor*) 10 mg PO BEDTIME [facility] Last Admin: 10/24/17 21:15 Dose: 10 mg Benzonatate (Tessalon Cap*) 100 mg PO BID PRN PRN Reason: COUGH Last Admin: 10/25/17 01:34 Dose: 100 mg Cetirizine HCl (Zyrtec*) 10 mg PO DAILY [facility]; Protocol Last Admin: 10/25/17 09:29 Dose: 10 mg Cholecalciferol (Vitamin D Tab*) 1,000 units PO DAILY [facility] Last Admin: 10/25/17 09:28 Dose: 1,000 units Clotrimazole (Mycelex Michael*) 10 mg PO FIVE TIMES DAILY [facility] Last Admin: 10/25/17 10:42 Dose: 10 mg Cyanocobalamin (Vitamin B12 Tab*) 1,000 mcg PO EVERY OTHER DAY [facility] Last Admin: 10/24/17 09:00 Dose: 1,000 mcg Docusate Sodium (Colace Cap*) 100 mg PO BID PRN PRN Reason: CONSTIPATION Doxycycline Hyclate (Vibramycin Cap(*)) 100 mg PO BID [facility] Last Admin: 10/25/17 09:27 Dose: 100 mg Fluoxetine HCl (Prozac Cap*) 40 mg PO DAILY [facility] Last Admin: 10/25/17 09:27 Dose: 40 mg Fluticasone Propionate (Flonase Nasal [place] 50mcg*) 2 spray BOTH NARES DAILY [facility] Last Admin: 10/25/17 09:36 Dose: 2 spray Guaifenesin (Mucinex*) 1,200 mg PO BID [facility] Last Admin: 10/25/17 09:28 Dose: 1,200 mg Hydroxyurea (Hydrea Cap*) 1,000 mg PO DAILY [facility] Last Admin: 10/25/17 09:29 Dose: 1,000 mg Ceftriaxone Sodium 1 gm/ (Sodium Chloride) 50 mls @ 200 mls/hr IVPB Q24H [facility] Last Admin: 10/24/17 16:35 Dose: 200 mls/hr Levothyroxine Sodium (Synthroid Tab*) 112 mcg PO 0600 [facility] Last Admin: 10/25/17 05:42 Dose: 112 mcg Lisinopril (Prinivil Tab*) 40 mg PO DAILY [facility] Last Admin: 10/25/17 09:27 Dose: 40 mg Loperamide HCl (Imodium Cap*) 2 mg PO TID PRN PRN Reason: DIARRHEA Lorazepam (Ativan Tab(*)) 0.25 mg PO BEDTIME PRN PRN Reason: ANXIETY Last Admin: 10/24/17 22:55 Dose: 0.25 mg Magnesium Oxide (Magox 400 Tab*) 400 mg PO DAILY [facility] Last Admin: 10/25/17 09:28 Dose: 400 mg Mometasone Furoate/Formoterol Fumar (Dulera 200/5 Mdi*) 2 puff INH BID [facility]; Protocol Last Admin: 10/25/17 08:13 Dose: 2 puff Montelukast Sodium (Singulair Tab*) 10 mg PO BEDTIME [facility] Last Admin: 10/24/17 21:16 Dose: 10 mg Multivitamins/Minerals (Theragran/Minerals Tab*) 1 tab PO DAILY [facility] Last Admin: 10/25/17 09:28 Dose: 1 tab Omeprazole (Prilosec Cap*) 20 mg PO 0730 [facility] Last Admin: 10/25/17 09:28 Dose: 20 mg Ondansetron HCl (Zofran 40 Mg Vial*) 4 mg IV Q6H PRN PRN Reason: NAUSEA Prednisone (Deltasone Tab*) 60 mg PO DAILY [facility] Last Admin: 10/25/17 09:27 Dose: 60 mg Rivaroxaban (Xarelto(*)) 20 mg PO DAILY [facility] Last Admin: 10/25/17 09:28 Dose: 20 mg Vital Signs - 8 hr 10/25/17 10/25/17 10/25/17 03:26 03:34 04:00 Temperature 97.7 F Pulse Rate Respiratory 22 20 Rate Blood Pressure 113/50 (mmHg) O2 Sat by Pulse 96 Oximetry 10/25/17 10/25/17 10/25/17 05:00 05:04 06:00 Temperature Pulse Rate Respiratory 20 22 22 Rate Blood Pressure 135/53 152/64 (mmHg) O2 Sat by Pulse 95 95 97 Oximetry 10/25/17 10/25/17 10/25/17 08:00 08:15 08:17 Temperature 97.8 F Pulse Rate 73 74 Respiratory 19 22 Rate Blood Pressure (mmHg) O2 Sat by Pulse 100 100 Oximetry 10/25/17 08:18 Temperature Pulse Rate 70 Respiratory 21 Rate Blood Pressure (mmHg) O2 Sat by Pulse 100 Oximetry Oxygen Devices in Use Now: High Flow Heated Nasal Cannula - 10L-100% O2 Appearance: Elderly female sitting up in a chair, NAD Eyes: No Scleral Icterus Ears/Nose/Mouth/Throat: Mucous Membranes Moist Respiratory: Symmetrical Chest Expansion and Respiratory Effort, Clear to Auscultation - diminshed breath sounds at the bases Cardiovascular: NL Sounds; No Murmurs; No JVD, RRR, No Edema Abdominal: NL Sounds; No Tenderness; No Distention Extremities: No Clubbing, Cyanosis Skin: No Nodules or Sclerosis Neurological: Alert and Oriented x 3 Result Diagrams: 10/25/17 05:02 10/25/17 05:02 Microbiology and Other Data: Microbiology 10/22/17 17:42 Aerobic Blood Culture - Preliminary Blood Venous No Growth Day 2 Anaerobic Blood Culture - Preliminary No Growth Day 2 10/22/17 17:42 Aerobic Blood Culture - Preliminary Blood Venous No Growth Day 2 Anaerobic Blood Culture - Preliminary No Growth Day 2 Assess/Plan/Problems-Billing Ms Keita is a 77 yo F who has a h/o O2 dependent COPD and chronic hypoxic respiratory failure, afib, HTN, HLD, and chronic leukocytosis and thrombocytopenia who presented to the ER with c/o severe SOB and was admitted for a COPD exacerbation. - Patient Problems (1) COPD exacerbation Current Visit: Yes Status: Acute Code(s): J44.1 - CHRONIC OBSTRUCTIVE PULMONARY DISEASE W (ACUTE) EXACERBATION SNOMED Code(s): 950995703441860 Comment: Improved today. Transitioning from vapotherm to regular NC O2. Continue ceftriaxone, change azithromycin to oral. Continue prednisone at current dose and likely start taper tomorrow. (2) Atrial fibrillation Current Visit: Yes Status: Acute Code(s): I48.91 - UNSPECIFIED ATRIAL FIBRILLATION SNOMED Code(s): 36269736 Comment: Pt went back into afib yesterday with her respiratory distress. In NSR today. Continue atenolol and xarelto. (3) Essential thrombocythemia Current Visit: Yes Status: Acute Code(s): D47.3 - ESSENTIAL (HEMORRHAGIC) THROMBOCYTHEMIA SNOMED Code(s): 451368223 Comment: Platelets slightly elevated today. Hydrea dose decreased yesterday due to anemia. (4) History of pulmonary embolus (PE) Current Visit: Yes Status: Acute Code(s): Z86.711 - PERSONAL HISTORY OF PULMONARY EMBOLISM SNOMED Code(s): 343054043 Comment: Continue xarelto. (5) Hyperlipidemia Current Visit: Yes Status: Acute Code(s): E78.5 - HYPERLIPIDEMIA, UNSPECIFIED SNOMED Code(s): 13267711 Comment: Continue lipitor. (6) DVT prophylaxis Current Visit: Yes Status: Acute Code(s): DNF5814 - SNOMED Code(s): 052271168 Comment: xarelto (7) Full code status Current Visit: Yes Status: Acute Code(s): Z78.9 - OTHER SPECIFIED HEALTH STATUS SNOMED Code(s): 253958101
[2017-10-25] MEDS ORDERED: Spiriva Inhaler DEVICE* 1 EACH DEVICE INH SCH (12:00)
[2017-10-25] MEDS ORDERED: Spiriva Inhaler DEVICE* 1 EACH DEVICE SCH (12:00)
[2017-10-25] MEDS: cefTRIAXone(*) 1 GM in NS 0.9% 50 ML* 50 ML IVPB SCH (16:14)
[2017-10-25] MEDS: Atorvastatin* 10 MG TAB PO SCH (20:47)
[2017-10-25] MEDS: Montelukast Sodium TAB* 10 MG PO SCH (20:50)
[2017-10-25] MEDS: LORazepam TAB(*) 0.5 MG PO PRN (22:29)
[2017-10-26] MEDS: Acetaminophen TAB* 325 MG PO PRN (02:30)
[2017-10-26] MEDS: Omeprazole CAP* 20 MG PO SCH (07:19)
[2017-10-26] MEDS: Clotrimazole TROCHE* 10 MG TROCHE PO SCH ×5 (07:20→20:55)
[2017-10-26] MEDS: Levothyroxine TAB* 112 MCG TAB PO SCH (07:24)
[2017-10-26 07:43] LABS: Hematocrit 26 % (35-47); Hemoglobin 8.2 g/dl (12.0-16.0); Mean Corpuscular HGB Conc 32 g/dl (31-36); Mean Corpuscular Hemoglobin 37 pg (27-31); Mean Corpuscular Volume 115 fL (80-97); Mean Platelet Volume 10.3 um3 (7.4-10.4); Platelet Count 477 10^3/ul (150-450); Red Blood Count 2.22 10^6/ul (4.00-5.40); Red Cell Distribution Width 26 % (10.5-15); White Blood Count 13.3 10^3/ul (3.5-10.8)
[2017-10-26 07:52] LABS: EGFR Non-African American 61.2 (>60)
[2017-10-26] MEDS: Mometasone/Formoter 200/5 MDI INH SCH ×2 (08:16→20:46)
[2017-10-26] MEDS: Tiotropium CAP.INH* CAP.INH/18 MCG (USE ORDER SET !) INH SCH (08:17)
[2017-10-26] MEDS: Cholecalciferol TAB* 1000 UNITS PO SCH (08:55)
[2017-10-26] MEDS: FLUoxetine CAP* 20 MG PO SCH (08:55)
[2017-10-26] MEDS: Magnesium Oxide TAB* 400 MG PO SCH (08:55)
[2017-10-26] MEDS: DOXYcycline CAP(*) 100 MG PO SCH ×2 (08:55→20:49)
[2017-10-26] MEDS: guaiFENesin ER TAB 600 MG PO SCH ×2 (08:55→20:50)
[2017-10-26] MEDS: Lisinopril TAB* 10 MG PO SCH (08:55)
[2017-10-26] MEDS: Rivaroxaban TAB(*) 20 MG TAB PO SCH (08:56)
[2017-10-26] MEDS: Atenolol TAB* 25 MG PO SCH (08:56)
[2017-10-26] MEDS: Cetirizine* 10 MG TAB PO SCH (08:56)
[2017-10-26] MEDS: Fluticasone NASAL SPRAY 50MCG* 16 gm SPRAY BTL BOTH NARES SCH (08:56)
[2017-10-26] MEDS: HydroxyUREA CAP* 500 MG CAP PO SCH (08:56)
[2017-10-26] MEDS: Multivitamins/Minerals TAB PO SCH (08:56)
[2017-10-26] MEDS: predniSONE TAB* 20 MG PO SCH (08:56)
[2017-10-26] MEDS: Acetaminop/Codeine 30 MG TAB* 1 TAB (300 MG/30 MG) PO SCH ×2 (08:56→20:59)
[2017-10-26] MEDS: Cyanocobalamin TAB* 500 MCG PO SCH (08:56)
--- NOTE | 2017-10-26 09:42 | PN ---
Progress Note - Progress Note Date of Service: 10/26/17 SOAP: Subjective: []She is better then admission. Developed SOB over several days. No fever or chills. There was no clear inciting event. Acetaminophen (Tylenol Tab*) 650 mg PO Q6H PRN PRN Reason: FEVER/PAIN Last Admin: 10/26/17 02:30 Dose: 650 mg Acetaminophen/Codeine Phosphate (Tylenol/Codeine 30 Mg Tab*) 1 tab PO BID [facility] Last Admin: 10/26/17 08:56 Dose: 1 tab Albuterol (Ventolin 2.5 Mg/3 Ml Neb.Ijeoma*) 2.5 mg INH Q2H PRN PRN Reason: SOB/WHEEZING Atenolol (Tenormin Tab*) 25 mg PO DAILY [facility] Last Admin: 10/26/17 08:56 Dose: 25 mg Atorvastatin Calcium (Lipitor*) 10 mg PO BEDTIME [facility] Last Admin: 10/25/17 20:47 Dose: 10 mg Benzonatate (Tessalon Cap*) 100 mg PO BID PRN PRN Reason: COUGH Last Admin: 10/25/17 01:34 Dose: 100 mg Cetirizine HCl (Zyrtec*) 10 mg PO DAILY [facility]; Protocol Last Admin: 10/26/17 08:56 Dose: 10 mg Cholecalciferol (Vitamin D Tab*) 1,000 units PO DAILY [facility] Last Admin: 10/26/17 08:55 Dose: 1,000 units Clotrimazole (Mycelex Michael*) 10 mg PO FIVE TIMES DAILY [facility] Last Admin: 10/26/17 08:56 Dose: 10 mg Cyanocobalamin (Vitamin B12 Tab*) 1,000 mcg PO EVERY OTHER DAY [facility] Last Admin: 10/26/17 08:56 Dose: 1,000 mcg Device (Tiotropium Inhaler Device*) 1 each INH .USE w/ SPIRIVA CAPS [facility] Docusate Sodium (Colace Cap*) 100 mg PO BID PRN PRN Reason: CONSTIPATION Doxycycline Hyclate (Vibramycin Cap(*)) 100 mg PO BID [facility] Last Admin: 10/26/17 08:55 Dose: 100 mg Fluoxetine HCl (Prozac Cap*) 40 mg PO DAILY [facility] Last Admin: 10/26/17 08:55 Dose: 40 mg Fluticasone Propionate (Flonase Nasal [place] 50mcg*) 2 spray BOTH NARES DAILY [facility] Last Admin: 10/26/17 08:56 Dose: 2 spray Guaifenesin (Mucinex*) 1,200 mg PO BID [facility] Last Admin: 10/26/17 08:55 Dose: 1,200 mg Hydroxyurea (Hydrea Cap*) 1,000 mg PO DAILY [facility] Last Admin: 10/26/17 08:56 Dose: 1,000 mg Ceftriaxone Sodium 1 gm/ (Sodium Chloride) 50 mls @ 200 mls/hr IVPB Q24H [facility] Last Admin: 10/25/17 16:14 Dose: 200 mls/hr Levothyroxine Sodium (Synthroid Tab*) 112 mcg PO 0600 [facility] Last Admin: 10/26/17 07:24 Dose: 112 mcg Lisinopril (Prinivil Tab*) 40 mg PO DAILY [facility] Last Admin: 10/26/17 08:55 Dose: 40 mg Loperamide HCl (Imodium Cap*) 2 mg PO TID PRN PRN Reason: DIARRHEA Lorazepam (Ativan Tab(*)) 0.25 mg PO BEDTIME PRN PRN Reason: ANXIETY Last Admin: 10/25/17 22:29 Dose: 0.25 mg Magnesium Oxide (Magox 400 Tab*) 400 mg PO DAILY [facility] Last Admin: 10/26/17 08:55 Dose: 400 mg Mometasone Furoate/Formoterol Fumar (Dulera 200/5 Mdi*) 2 puff INH BID [facility]; Protocol Last Admin: 10/26/17 08:16 Dose: 2 puff Montelukast Sodium (Singulair Tab*) 10 mg PO BEDTIME [facility] Last Admin: 10/25/17 20:50 Dose: 10 mg Multivitamins/Minerals (Theragran/Minerals Tab*) 1 tab PO DAILY [facility] Last Admin: 10/26/17 08:56 Dose: 1 tab Omeprazole (Prilosec Cap*) 20 mg PO 0730 [facility] Last Admin: 10/26/17 07:19 Dose: 20 mg Ondansetron HCl (Zofran 40 Mg Vial*) 4 mg IV Q6H PRN PRN Reason: NAUSEA Prednisone (Deltasone Tab*) 60 mg PO DAILY [facility] Last Admin: 10/26/17 08:56 Dose: 60 mg Rivaroxaban (Xarelto(*)) 20 mg PO DAILY [facility] Last Admin: 10/26/17 08:56 Dose: 20 mg Tiotropium [place] (Spiriva Cap.Inh*) 1 cap INH DAILY [facility] Last Admin: 10/26/17 08:17 Dose: 1 puff Objective: [] Vital Signs Temp Pulse Resp BP Pulse Ox 98.1 F 70 24 178/64 98 10/26/17 07:29 10/26/17 08:21 10/26/17 08:56 10/26/17 07:29 10/26/17 08:21 HEENT: no thrush, oral lesions. Decreased BS but good air movement, no wheezing RRR S1S2 +BS NT ND, + spleen Ext w/o edema Hgb 8.2, MCV 115 Hgb had been BL of 12.0 through 2015, then decreased to 11.0 in 2017 but through most of 2018 has been running 8.9 or less. Ferritin 100, saturation 9%, TIBC is low. B12 > 1000. Est Cr Cl 36 Assessment: []77 year old with CALR positive essential thrombocytosis. She has been stable for extended time on HU but has several admissions for COPD over past year. Notable is progressive anemia and I suspect anemia is augmenting severity of COPD exacerbations. Current iron studies with low TIBC are consistent with anemia of chronic disease but differential includes iron deficiency, CRI, marrow suppression from HU, marrow dysfunction. Plan: []1. Will send additional studies today for anemia: - Soluble Transferritin Receptor - erythropoietin level - Retic 2. Check stool guiac. 3. Hold HU today and until follow up in clinc 4. Her CrcL is borderline for Xeralto but it is indicated. Rupal is less renal dependent. 5. Will follow up on one week after discharge.
[2017-10-26 12:29] LABS: Corrected Retic Count 1.4 % (0.5-1.5); Hematocrit for Retic CNT 26 % (35-47); Immature Retic Fraction 0.55; RBC Retic Count 2.21 10^6/ul (4.6-6.2)
--- NOTE | 2017-10-26 15:24 | PN ---
Subjective Date of Service: 10/26/17 Interval History: Pt is feeling better again today. She however does not feel ready to go home. She has been taking xanax fairly regularly which has helped with her anxiety. She states she is also now coughing up some sputum and that has helped her breathing. Objective Active Medications: Acetaminophen (Tylenol Tab*) 650 mg PO Q6H PRN PRN Reason: FEVER/PAIN Last Admin: 10/26/17 02:30 Dose: 650 mg Acetaminophen/Codeine Phosphate (Tylenol/Codeine 30 Mg Tab*) 1 tab PO BID [facility] Last Admin: 10/26/17 08:56 Dose: 1 tab Albuterol (Ventolin 2.5 Mg/3 Ml Neb.Ijeoma*) 2.5 mg INH Q2H PRN PRN Reason: SOB/WHEEZING Atenolol (Tenormin Tab*) 25 mg PO DAILY [facility] Last Admin: 10/26/17 08:56 Dose: 25 mg Atorvastatin Calcium (Lipitor*) 10 mg PO BEDTIME [facility] Last Admin: 10/25/17 20:47 Dose: 10 mg Benzonatate (Tessalon Cap*) 100 mg PO BID PRN PRN Reason: COUGH Last Admin: 10/25/17 01:34 Dose: 100 mg Cetirizine HCl (Zyrtec*) 10 mg PO DAILY [facility]; Protocol Last Admin: 10/26/17 08:56 Dose: 10 mg Cholecalciferol (Vitamin D Tab*) 1,000 units PO DAILY [facility] Last Admin: 10/26/17 08:55 Dose: 1,000 units Clotrimazole (Mycelex Michael*) 10 mg PO FIVE TIMES DAILY [facility] Last Admin: 10/26/17 14:24 Dose: 10 mg Cyanocobalamin (Vitamin B12 Tab*) 1,000 mcg PO EVERY OTHER DAY [facility] Last Admin: 10/26/17 08:56 Dose: 1,000 mcg Device (Tiotropium Inhaler Device*) 1 each INH .USE w/ SPIRIVA CAPS [facility] Docusate Sodium (Colace Cap*) 100 mg PO BID PRN PRN Reason: CONSTIPATION Doxycycline Hyclate (Vibramycin Cap(*)) 100 mg PO BID [facility] Last Admin: 10/26/17 08:55 Dose: 100 mg Fluoxetine HCl (Prozac Cap*) 40 mg PO DAILY [facility] Last Admin: 10/26/17 08:55 Dose: 40 mg Fluticasone Propionate (Flonase Nasal [place] 50mcg*) 2 spray BOTH NARES DAILY [facility] Last Admin: 10/26/17 08:56 Dose: 2 spray Guaifenesin (Mucinex*) 1,200 mg PO BID [facility] Last Admin: 10/26/17 08:55 Dose: 1,200 mg Hydroxyurea (Hydrea Cap*) 1,000 mg PO DAILY [facility] Last Admin: 10/26/17 08:56 Dose: 1,000 mg Ceftriaxone Sodium 1 gm/ (Sodium Chloride) 50 mls @ 200 mls/hr IVPB Q24H [facility] Last Admin: 10/25/17 16:14 Dose: 200 mls/hr Levothyroxine Sodium (Synthroid Tab*) 112 mcg PO 0600 [facility] Last Admin: 10/26/17 07:24 Dose: 112 mcg Lisinopril (Prinivil Tab*) 40 mg PO DAILY [facility] Last Admin: 10/26/17 08:55 Dose: 40 mg Loperamide HCl (Imodium Cap*) 2 mg PO TID PRN PRN Reason: DIARRHEA Lorazepam (Ativan Tab(*)) 0.25 mg PO BEDTIME PRN PRN Reason: ANXIETY Last Admin: 10/25/17 22:29 Dose: 0.25 mg Magnesium Oxide (Magox 400 Tab*) 400 mg PO DAILY [facility] Last Admin: 10/26/17 08:55 Dose: 400 mg Mometasone Furoate/Formoterol Fumar (Dulera 200/5 Mdi*) 2 puff INH BID [facility]; Protocol Last Admin: 10/26/17 08:16 Dose: 2 puff Montelukast Sodium (Singulair Tab*) 10 mg PO BEDTIME [facility] Last Admin: 10/25/17 20:50 Dose: 10 mg Multivitamins/Minerals (Theragran/Minerals Tab*) 1 tab PO DAILY [facility] Last Admin: 10/26/17 08:56 Dose: 1 tab Omeprazole (Prilosec Cap*) 20 mg PO 0730 [facility] Last Admin: 10/26/17 07:19 Dose: 20 mg Ondansetron HCl (Zofran 40 Mg Vial*) 4 mg IV Q6H PRN PRN Reason: NAUSEA Prednisone (Deltasone Tab*) 60 mg PO DAILY [facility] Last Admin: 10/26/17 08:56 Dose: 60 mg Rivaroxaban (Xarelto(*)) 20 mg PO DAILY [facility] Last Admin: 10/26/17 08:56 Dose: 20 mg Tiotropium [place] (Spiriva Cap.Inh*) 1 cap INH DAILY [facility] Last Admin: 10/26/17 08:17 Dose: 1 puff Vital Signs - 8 hr 10/26/17 10/26/17 10/26/17 07:29 08:00 08:20 Temperature 98.1 F Pulse Rate 75 75 Respiratory 28 28 19 Rate Blood Pressure 178/64 (mmHg) O2 Sat by Pulse 96 98 Oximetry 10/26/17 10/26/17 10/26/17 08:21 08:56 11:00 Temperature Pulse Rate 70 Respiratory 19 24 20 Rate Blood Pressure (mmHg) O2 Sat by Pulse 98 Oximetry 10/26/17 11:48 Temperature 98.0 F Pulse Rate 70 Respiratory 16 Rate Blood Pressure 148/54 (mmHg) O2 Sat by Pulse 98 Oximetry Oxygen Devices in Use Now: Nasal Cannula - 6L Appearance: Elderly female sitting up in bed, NAD Eyes: No Scleral Icterus Ears/Nose/Mouth/Throat: Mucous Membranes Moist Respiratory: Symmetrical Chest Expansion and Respiratory Effort, Clear to Auscultation - diminshed breath sounds at the bases but clear Cardiovascular: NL Sounds; No Murmurs; No JVD, RRR, No Edema Abdominal: NL Sounds; No Tenderness; No Distention Extremities: No Clubbing, Cyanosis Skin: No Nodules or Sclerosis Neurological: Alert and Oriented x 3 Result Diagrams: 10/26/17 06:56 10/26/17 06:56 Microbiology and Other Data: Microbiology 10/22/17 17:42 Aerobic Blood Culture - Preliminary Blood Venous No Growth Day 2 Anaerobic Blood Culture - Preliminary No Growth Day 2 10/22/17 17:42 Aerobic Blood Culture - Preliminary Blood Venous No Growth Day 2 Anaerobic Blood Culture - Preliminary No Growth Day 2 Assess/Plan/Problems-Billing Ms Keita is a 77 yo F who has a h/o O2 dependent COPD and chronic hypoxic respiratory failure, afib, HTN, HLD, and chronic leukocytosis and thrombocytopenia who presented to the ER with c/o severe SOB and was admitted for a COPD exacerbation. - Patient Problems (1) COPD exacerbation Current Visit: Yes Status: Acute Code(s): J44.1 - CHRONIC OBSTRUCTIVE PULMONARY DISEASE W (ACUTE) EXACERBATION SNOMED Code(s): 476685661378763 Comment: Pt remains on 6L O2 (she usually uses 3L at home). She still has diminshed breath sounds at the bases but overall she is improving. Today is D#4 of doxycycline (not azithromycin as previously noted) and ceftriaxone. Will stop ceftriaxone and continue with doxy to complete 7 days of therapy. (2) Anemia Current Visit: Yes Status: Acute Code(s): D64.9 - ANEMIA, UNSPECIFIED SNOMED Code(s): 398637734 Comment: The patient received 1 unit PRBC yesterday for progressively dropping H/H. ? secondary to hydrea vs other cause. Dr. Ram ordered some labs to eval. (3) Atrial fibrillation Current Visit: Yes Status: Acute Code(s): I48.91 - UNSPECIFIED ATRIAL FIBRILLATION SNOMED Code(s): 27477039 Comment: Pt remains in NSR. Continue xarelto and atenolol. (4) Essential thrombocythemia Current Visit: Yes Status: Acute Code(s): D47.3 - ESSENTIAL (HEMORRHAGIC) THROMBOCYTHEMIA SNOMED Code(s): 430862163 Comment: Platelets climbing but hydrea placed on hold per Dr Ram for now. (5) History of pulmonary embolus (PE) Current Visit: Yes Status: Acute Code(s): Z86.711 - PERSONAL HISTORY OF PULMONARY EMBOLISM SNOMED Code(s): 448071492 Comment: Continue xarelto. (6) Hyperlipidemia Current Visit: Yes Status: Acute Code(s): E78.5 - HYPERLIPIDEMIA, UNSPECIFIED SNOMED Code(s): 97797304 Comment: Continue lipitor. (7) DVT prophylaxis Current Visit: Yes Status: Acute Code(s): MDX0754 - SNOMED Code(s): 407990624 Comment: xarelto (8) Full code status Current Visit: Yes Status: Acute Code(s): Z78.9 - OTHER SPECIFIED HEALTH STATUS SNOMED Code(s): 115696669
[2017-10-26] MEDS: Atorvastatin* 10 MG TAB PO SCH (20:49)
[2017-10-26] MEDS: Montelukast Sodium TAB* 10 MG PO SCH (20:50)
[2017-10-27] MEDS: Levothyroxine TAB* 112 MCG TAB PO SCH (06:16)
[2017-10-27] MEDS: Clotrimazole TROCHE* 10 MG TROCHE PO SCH ×5 (06:16→20:30)
[2017-10-27] MEDS: Omeprazole CAP* 20 MG PO SCH (06:16)
[2017-10-27 06:35] LABS: Hematocrit 26 % (35-47); Hemoglobin 8.7 g/dl (12.0-16.0); Mean Corpuscular HGB Conc 33 g/dl (31-36); Mean Corpuscular Hemoglobin 38 pg (27-31); Mean Corpuscular Volume 114 fL (80-97); Mean Platelet Volume 9.9 um3 (7.4-10.4); Platelet Count 438 10^3/ul (150-450); Red Blood Count 2.29 10^6/ul (4.00-5.40); Red Cell Distribution Width 24 % (10.5-15); White Blood Count 14.6 10^3/ul (3.5-10.8)
[2017-10-27] MEDS: Mometasone/Formoter 200/5 MDI INH SCH ×2 (08:36→20:34)
[2017-10-27] MEDS: Tiotropium CAP.INH* CAP.INH/18 MCG (USE ORDER SET !) INH SCH (08:37)
[2017-10-27] MEDS: guaiFENesin ER TAB 600 MG PO SCH ×2 (08:58→20:30)
[2017-10-27] MEDS: Multivitamins/Minerals TAB PO SCH (08:58)
[2017-10-27] MEDS: Cetirizine* 10 MG TAB PO SCH (08:58)
[2017-10-27] MEDS: FLUoxetine CAP* 20 MG PO SCH (08:58)
[2017-10-27] MEDS: Acetaminop/Codeine 30 MG TAB* 1 TAB (300 MG/30 MG) PO SCH ×2 (08:58→20:30)
[2017-10-27] MEDS: Cholecalciferol TAB* 1000 UNITS PO SCH (08:58)
[2017-10-27] MEDS: Rivaroxaban TAB(*) 20 MG TAB PO SCH (08:59)
[2017-10-27] MEDS: DOXYcycline CAP(*) 100 MG PO SCH ×2 (08:59→20:30)
[2017-10-27] MEDS: predniSONE TAB* 20 MG PO SCH (08:59)
[2017-10-27] MEDS: Magnesium Oxide TAB* 400 MG PO SCH (08:59)
[2017-10-27] MEDS: Atenolol TAB* 25 MG PO SCH (08:59)
[2017-10-27] MEDS: Lisinopril TAB* 10 MG PO SCH (09:00)
[2017-10-27] MEDS: Fluticasone NASAL SPRAY 50MCG* 16 gm SPRAY BTL BOTH NARES SCH (09:00)
--- NOTE | 2017-10-27 09:53 | PN ---
Subjective Date of Service: 10/27/17 Interval History: Patient seen and examined at bedside. Denies fever, chills, shortness of breath , chest discomfort, N/V/D. Pt states that the nebulizers are loosening up mucous today and she is coughing more. She doesn't feel ready for discharge today, but hopes to go home tomorrow. Tele: Sinus rhythm, rate 50-70's Family History: Unchanged from Admission Social History: Unchanged from Admission Past Medical History: Unchanged from Admission Objective Active Medications: Acetaminophen (Tylenol Tab*) 650 mg PO Q6H PRN Reason: FEVER/PAIN Acetaminophen/Codeine Phosphate (Tylenol/Codeine 30 Mg Tab*) 1 tab PO BID [facility] Albuterol (Ventolin 2.5 Mg/3 Ml Neb.Ijeoma*) 2.5 mg INH Q2H PRN Reason: SOB/ WHEEZING Atenolol (Tenormin Tab*) 25 mg PO DAILY [facility] Atorvastatin Calcium (Lipitor*) 10 mg PO BEDTIME [facility] Benzonatate (Tessalon Cap*) 100 mg PO BID PRN Reason: COUGH Cetirizine HCl (Zyrtec*) 10 mg PO DAILY [facility]; Protocol Cholecalciferol (Vitamin D Tab*) 1,000 units PO DAILY [facility] Clotrimazole (Mycelex Michael*) 10 mg PO FIVE TIMES DAILY [facility] Cyanocobalamin (Vitamin B12 Tab*) 1,000 mcg PO EVERY OTHER DAY [facility] Device (Tiotropium Inhaler Device*) 1 each INH .USE w/ SPIRIVA CAPS [facility] Docusate Sodium (Colace Cap*) 100 mg PO BID PRN Reason: CONSTIPATION Doxycycline Hyclate (Vibramycin Cap(*)) 100 mg PO BID [facility] Fluoxetine HCl (Prozac Cap*) 40 mg PO DAILY [facility] Fluticasone Propionate (Flonase Nasal [place] 50mcg*) 2 spray BOTH NARES DAILY [facility] Guaifenesin (Mucinex*) 1,200 mg PO BID [facility] Levothyroxine Sodium (Synthroid Tab*) 112 mcg PO 0600 [facility] Lisinopril (Prinivil Tab*) 40 mg PO DAILY [facility] Loperamide HCl (Imodium Cap*) 2 mg PO TID PRN Reason: DIARRHEA Lorazepam (Ativan Tab(*)) 0.25 mg PO BEDTIME PRN Reason: ANXIETY Magnesium Oxide (Magox 400 Tab*) 400 mg PO DAILY [facility] Mometasone Furoate/Formoterol Fumar (Dulera 200/5 Mdi*) 2 puff INH BID [facility]; Protocol Montelukast Sodium (Singulair Tab*) 10 mg PO BEDTIME [facility] Multivitamins/Minerals (Theragran/Minerals Tab*) 1 tab PO DAILY [facility] Omeprazole (Prilosec Cap*) 20 mg PO 0730 [facility] Ondansetron HCl (Zofran 40 Mg Vial*) 4 mg IV Q6H PRN Reason: NAUSEA Prednisone (Deltasone Tab*) 40 mg PO DAILY [facility] Rivaroxaban (Xarelto(*)) 20 mg PO DAILY [facility] Tiotropium [place] (Spiriva Cap.Inh*) 1 cap INH DAILY [facility] Vital Signs - 8 hr 10/27/17 10/27/17 10/27/17 04:53 08:00 08:31 Temperature 97.9 F 97.1 F Pulse Rate 70 80 Respiratory 20 26 17 Rate Blood Pressure 184/64 163/67 (mmHg) O2 Sat by Pulse 97 94 Oximetry 10/27/17 10/27/17 10/27/17 08:44 08:45 08:46 Temperature Pulse Rate 80 80 Respiratory 20 20 Rate Blood Pressure (mmHg) O2 Sat by Pulse 94 94 94 Oximetry 10/27/17 08:58 Temperature Pulse Rate Respiratory 24 Rate Blood Pressure (mmHg) O2 Sat by Pulse Oximetry Oxygen Devices in Use Now: Nasal Cannula - 3L Appearance: NAD, sitting up in bed Ears/Nose/Mouth/Throat: Mucous Membranes Moist Respiratory: Symmetrical Chest Expansion and Respiratory Effort, - - Lung sounds with rhonchi and exp wheeze bilateral Cardiovascular: NL Sounds; No Murmurs; No JVD, RRR Abdominal: NL Sounds; No Tenderness; No Distention Extremities: No Edema Skin: No Rash or Ulcers Neurological: Alert and Oriented x 3, NL Muscle Strength and Tone Lines/Tubes/Other Access: Clean, Dry and Intact Peripheral IV - site benign Nutrition: Taking PO's Result Diagrams: 10/27/17 06:05 10/26/17 06:56 Microbiology and Other Data: Microbiology 10/22/17 17:42 Aerobic Blood Culture - Preliminary Blood Venous No Growth Day 2 Anaerobic Blood Culture - Preliminary No Growth Day 2 10/22/17 17:42 Aerobic Blood Culture - Preliminary Blood Venous No Growth Day 2 Anaerobic Blood Culture - Preliminary No Growth Day 2 Assess/Plan/Problems-Billing ASSESSMENT: Ms Keita is a 77 yo F who has a h/o O2 dependent COPD and chronic hypoxic respiratory failure, afib, HTN, HLD, and chronic leukocytosis and thrombocytopenia who presented to the ER with c/o severe SOB and was admitted for a COPD exacerbation. - Patient Problems (1) COPD exacerbation Code(s): J44.1 - CHRONIC OBSTRUCTIVE PULMONARY DISEASE W (ACUTE) EXACERBATION SNOMED Code(s): 736710113433745 Comment: - Pt titrated down to 3L O2 (baseline at home) - She still has diminshed breath sounds at the bases but overall she is improving - Completed 5 day course of ceftriaxone - Continue doxy, day 5/7 and slow prednisone taper (working towards to baseline dose of 5mg) (2) Anemia Code(s): D64.9 - ANEMIA, UNSPECIFIED SNOMED Code(s): 999952846 Comment: - Received 1 unit PRBC 10/25 for progressively dropping H/H - ? secondary to hydrea vs other cause. Dr. Ram ordered some labs to eval. (3) Essential thrombocythemia Code(s): D47.3 - ESSENTIAL (HEMORRHAGIC) THROMBOCYTHEMIA SNOMED Code(s): 223065813 Comment: - Platelets climbing but hydrea placed on hold per Dr Ram for now. (4) Atrial fibrillation Code(s): I48.91 - UNSPECIFIED ATRIAL FIBRILLATION SNOMED Code(s): 57376511 Comment: - Pt remains in NSR - Continue xarelto and atenolol (5) History of pulmonary embolus (PE) Code(s): Z86.711 - PERSONAL HISTORY OF PULMONARY EMBOLISM SNOMED Code(s): 031903371 Comment: - Continue xarelto. (6) Hyperlipidemia Code(s): E78.5 - HYPERLIPIDEMIA, UNSPECIFIED SNOMED Code(s): 70846407 Comment: - Continue lipitor. (7) Chronic respiratory failure Code(s): J96.10 - CHRONIC RESPIRATORY FAILURE, UNSP W HYPOXIA OR HYPERCAPNIA SNOMED Code(s): 83505339 Comment: - Hypoxic respitatory failure, now back to baseline O2 - Secondary to COPD - O2 and steroid dependent(5mg) (8) HTN (hypertension) Code(s): I10 - ESSENTIAL (PRIMARY) HYPERTENSION SNOMED Code(s): 94826280 Comment: - SBP 140-180's - Continue atenolol and lisinopril (9) Hypothyroid Code(s): E03.9 - HYPOTHYROIDISM, UNSPECIFIED SNOMED Code(s): 41846175 Comment: - TSH 1.43 on 07/03/17 - Continue synthroid (10) DVT prophylaxis Code(s): BRS9603 - SNOMED Code(s): 424416241 Comment: - Xarelto (11) Full code status Code(s): Z78.9 - OTHER SPECIFIED HEALTH STATUS SNOMED Code(s): 913538424 Status and Disposition: Inpatient. Discharge to home when medically stable. Attending: Vlad Person
[2017-10-27 13:49] LABS: Soluble Transferrin Receptor 2.4 mg/L (1.8 - 4.6)
[2017-10-27] MEDS: Atorvastatin* 10 MG TAB PO SCH (20:30)
[2017-10-27] MEDS: Montelukast Sodium TAB* 10 MG PO SCH (20:30)
[2017-10-28] MEDS: Levothyroxine TAB* 112 MCG TAB PO SCH (06:00)
[2017-10-28] MEDS: Clotrimazole TROCHE* 10 MG TROCHE PO SCH ×5 (06:00→20:56)
[2017-10-28] MEDS: Magnesium Oxide TAB* 400 MG PO SCH (07:12)
[2017-10-28] MEDS: guaiFENesin ER TAB 600 MG PO SCH ×2 (07:12→20:56)
[2017-10-28] MEDS: Acetaminop/Codeine 30 MG TAB* 1 TAB (300 MG/30 MG) PO SCH ×2 (07:12→20:56)
[2017-10-28] MEDS: Omeprazole CAP* 20 MG PO SCH (07:12)
[2017-10-28] MEDS: DOXYcycline CAP(*) 100 MG PO SCH ×2 (07:12→20:56)
[2017-10-28] MEDS: Cholecalciferol TAB* 1000 UNITS PO SCH (07:12)
[2017-10-28] MEDS: Multivitamins/Minerals TAB PO SCH (07:12)
[2017-10-28] MEDS: Atenolol TAB* 25 MG PO SCH (07:13)
[2017-10-28] MEDS: Cyanocobalamin TAB* 500 MCG PO SCH (07:13)
[2017-10-28] MEDS: predniSONE TAB* 20 MG PO SCH (07:13)
[2017-10-28] MEDS: Lisinopril TAB* 10 MG PO SCH (07:13)
[2017-10-28] MEDS: Cetirizine* 10 MG TAB PO SCH (07:13)
[2017-10-28] MEDS: Fluticasone NASAL SPRAY 50MCG* 16 gm SPRAY BTL BOTH NARES SCH (07:13)
[2017-10-28] MEDS: Rivaroxaban TAB(*) 20 MG TAB PO SCH (07:13)
[2017-10-28] MEDS: FLUoxetine CAP* 20 MG PO SCH (07:13)
[2017-10-28] MEDS: Mometasone/Formoter 200/5 MDI INH SCH ×2 (08:11→19:33)
[2017-10-28] MEDS: Tiotropium CAP.INH* CAP.INH/18 MCG (USE ORDER SET !) INH SCH (08:11)
--- NOTE | 2017-10-28 09:52 | PN ---
Subjective Date of Service: 10/28/17 Interval History: Patient seen and examined at bedside. Denies fever, chills, shortness of breath (above baseline), chest discomfort, N/V/D. Pt's family in the room state that they feel she appears more short of breath then her baseline. Pt states that it is normal for her to be short of breath after ADLs in the morning. Tele: Sinus rhythm, rate 50-80's. Brief episode of possible afib this AM Family History: Unchanged from Admission Social History: Unchanged from Admission Past Medical History: Unchanged from Admission Objective Active Medications: Acetaminophen (Tylenol Tab*) 650 mg PO Q6H PRN Reason: FEVER/PAIN Acetaminophen/Codeine Phosphate (Tylenol/Codeine 30 Mg Tab*) [address] [facility] Albuterol (Ventolin 2.5 Mg/3 Ml Neb.Ijeoma*) 2.5 mg INH Q2H PRN Reason: SOB/ WHEEZING Atenolol (Tenormin Tab*) [address] [facility] Atorvastatin Calcium (Lipitor*) 10 mg PO BEDTIME [facility] Benzonatate (Tessalon Cap*) 100 mg PO BID PRN Reason: COUGH Cetirizine HCl (Zyrtec*) 10 mg PO DAILY [facility]; Protocol Cholecalciferol (Vitamin D Tab*) 1,[address] [facility] Clotrimazole (Mycelex Michael*) 10 mg PO FIVE TIMES DAILY [facility] Cyanocobalamin (Vitamin B12 Tab*) 1,000 mcg PO EVERY OTHER DAY [facility] Device (Tiotropium Inhaler Device*) 1 each INH .USE w/ SPIRIVA CAPS [facility] Docusate Sodium (Colace Cap*) 100 mg PO BID PRN Reason: CONSTIPATION Doxycycline Hyclate (Vibramycin Cap(*)) [address] [facility] Stop: 10/30/17 09:01 Fluoxetine HCl (Prozac Cap*) [address] [facility] Fluticasone Propionate (Flonase Nasal [place] 50mcg*) [address] [facility] Guaifenesin (Mucinex*) 1,[address] [facility] Levothyroxine Sodium (Synthroid Tab*) 112 mcg PO 0600 [facility] Lisinopril (Prinivil Tab*) [address] [facility] Loperamide HCl (Imodium Cap*) 2 mg PO TID PRN Reason: DIARRHEA Lorazepam (Ativan Tab(*)) 0.25 mg PO BEDTIME PRN Reason: ANXIETY Magnesium Oxide (Magox 400 Tab*) [address] [facility] Mometasone Furoate/Formoterol Fumar (Dulera 200/5 Mdi*) [address] [facility]; Protocol Montelukast Sodium (Singulair Tab*) [address] [facility] Multivitamins/Minerals (Theragran/Minerals Tab*) [address] [facility] Omeprazole (Prilosec Cap*) [address] [facility] Ondansetron HCl (Zofran 40 Mg Vial*) 4 mg IV Q6H PRN Reason: NAUSEA Prednisone (Deltasone Tab*) [address] [facility] Rivaroxaban (Xarelto(*)) [address] [facility] Tiotropium [place] (Spiriva Cap.Inh*) [address] [facility] Vital Signs - 8 hr 10/28/17 10/28/17 10/28/17 04:27 06:45 07:12 Temperature 97.8 F Pulse Rate 79 Respiratory 20 20 24 Rate Blood Pressure 158/60 (mmHg) O2 Sat by Pulse 94 Oximetry 10/28/17 10/28/17 10/28/17 07:20 08:14 08:15 Temperature 98.8 F Pulse Rate 62 64 Respiratory 24 20 Rate Blood Pressure 180/59 (mmHg) O2 Sat by Pulse 95 95 95 Oximetry 10/28/17 10/28/17 08:16 09:36 Temperature Pulse Rate 64 Respiratory 20 22 Rate Blood Pressure (mmHg) O2 Sat by Pulse 95 91 Oximetry Oxygen Devices in Use Now: Nasal Cannula - 3L Appearance: NAD, sitting up in a chair Ears/Nose/Mouth/Throat: Mucous Membranes Moist Respiratory: Symmetrical Chest Expansion and Respiratory Effort, Clear to Auscultation Cardiovascular: NL Sounds; No Murmurs; No JVD, RRR Abdominal: NL Sounds; No Tenderness; No Distention Extremities: No Edema Skin: No Rash or Ulcers Neurological: Alert and Oriented x 3, NL Muscle Strength and Tone Lines/Tubes/Other Access: Clean, Dry and Intact Peripheral IV - site benign Nutrition: Taking PO's Result Diagrams: 10/27/17 06:05 10/26/17 06:56 Microbiology and Other Data: Microbiology 10/22/17 17:42 Aerobic Blood Culture - Preliminary Blood Venous No Growth Day 2 Anaerobic Blood Culture - Preliminary No Growth Day 2 06/18/18 17:42 Aerobic Blood Culture - Preliminary Blood Venous No Growth Day 2 Anaerobic Blood Culture - Preliminary No Growth Day 2 Assess/Plan/Problems-Billing ASSESSMENT: Ms Keita is a 77 yo F who has a h/o O2 dependent COPD and chronic hypoxic respiratory failure, afib, HTN, HLD, and chronic leukocytosis and thrombocytopenia who presented to the ER with c/o severe SOB and was admitted for a COPD exacerbation. - Patient Problems (1) COPD exacerbation Code(s): J44.1 - CHRONIC OBSTRUCTIVE PULMONARY DISEASE W (ACUTE) EXACERBATION SNOMED Code(s): 096544198634661 Comment: - Pt titrated down to 3L O2 (baseline at home) - She still has diminshed breath sounds at the bases but overall she is improving - Completed 5 day course of ceftriaxone - Continue doxy, day 6/7 and slow prednisone taper (working towards baseline dose of 5mg) (2) Anemia Code(s): D64.9 - ANEMIA, UNSPECIFIED SNOMED Code(s): 299854451 Comment: - Received 1 unit PRBC 10/25 for progressively dropping H/H - ? secondary to hydrea vs other cause. Dr. Ram ordered some labs to eval. (3) Essential thrombocythemia Code(s): D47.3 - ESSENTIAL (HEMORRHAGIC) THROMBOCYTHEMIA SNOMED Code(s): 844275098 Comment: - Platelets climbing but hydrea placed on hold per Dr Ram for now. (4) Atrial fibrillation Code(s): I48.91 - UNSPECIFIED ATRIAL FIBRILLATION SNOMED Code(s): 54491303 Comment: - In NSR at this time, had an episode of afib earlier today - Continue xarelto and atenolol (5) History of pulmonary embolus (PE) Code(s): Z86.711 - PERSONAL HISTORY OF PULMONARY EMBOLISM SNOMED Code(s): 138871276 Comment: - Continue xarelto. (6) Hyperlipidemia Code(s): E78.5 - HYPERLIPIDEMIA, UNSPECIFIED SNOMED Code(s): 02658340 Comment: - Continue lipitor. (7) Chronic respiratory failure Code(s): J96.10 - CHRONIC RESPIRATORY FAILURE, UNSP W HYPOXIA OR HYPERCAPNIA SNOMED Code(s): 58142068 Comment: - Hypoxic respitatory failure, now back to baseline O2 - Secondary to COPD - O2 and steroid dependent (5mg) (8) HTN (hypertension) Code(s): I10 - ESSENTIAL (PRIMARY) HYPERTENSION SNOMED Code(s): 45751288 Comment: - SBP 150-180's - Continue atenolol and lisinopril (9) Hypothyroid Code(s): E03.9 - HYPOTHYROIDISM, UNSPECIFIED SNOMED Code(s): 75840813 Comment: - TSH 1.43 on 07/03/17 - Continue synthroid (10) DVT prophylaxis Code(s): OKE8410 - SNOMED Code(s): 311947491 Comment: - Xarelto (11) Full code status Code(s): Z78.9 - OTHER SPECIFIED HEALTH STATUS SNOMED Code(s): 101027594 Status and Disposition: Inpatient. Discharge to home when medically stable, plan for discharge in the AM.
[2017-10-28] MEDS: hydrALAZINE IV* 20 MG/ML VIAL IV SLOW PU PRN (13:20)
[2017-10-28] MEDS: Albuterol 2.5 MG/3 ML NEB.SOL* (0.083%) INH PRN (19:44)
[2017-10-28] MEDS: Montelukast Sodium TAB* 10 MG PO SCH (20:56)
[2017-10-28] MEDS: Atorvastatin* 10 MG TAB PO SCH (20:56)
[2017-10-29] MEDS: Levothyroxine TAB* 112 MCG TAB PO SCH (06:11)
[2017-10-29] MEDS: Clotrimazole TROCHE* 10 MG TROCHE PO SCH ×5 (06:12→20:55)
[2017-10-29] MEDS: Albuterol 2.5 MG/3 ML NEB.SOL* (0.083%) INH PRN ×3 (07:52→19:55)
[2017-10-29] MEDS: Tiotropium CAP.INH* CAP.INH/18 MCG (USE ORDER SET !) INH SCH (07:55)
[2017-10-29] MEDS: Mometasone/Formoter 200/5 MDI INH SCH ×2 (07:55→19:55)
[2017-10-29] MEDS: Cetirizine* 10 MG TAB PO SCH (09:08)
[2017-10-29] MEDS: Atenolol TAB* 25 MG PO SCH (09:09)
[2017-10-29] MEDS: Multivitamins/Minerals TAB PO SCH (09:09)
[2017-10-29] MEDS: Acetaminop/Codeine 30 MG TAB* 1 TAB (300 MG/30 MG) PO SCH ×2 (09:09→19:43)
[2017-10-29] MEDS: DOXYcycline CAP(*) 100 MG PO SCH ×2 (09:09→19:43)
[2017-10-29] MEDS: Omeprazole CAP* 20 MG PO SCH (09:10)
[2017-10-29] MEDS: Lisinopril TAB* 10 MG PO SCH (09:10)
[2017-10-29] MEDS: Cholecalciferol TAB* 1000 UNITS PO SCH (09:10)
[2017-10-29] MEDS: FLUoxetine CAP* 20 MG PO SCH (09:10)
[2017-10-29] MEDS: predniSONE TAB* 20 MG PO SCH (09:11)
[2017-10-29] MEDS: guaiFENesin ER TAB 600 MG PO SCH ×2 (09:11→19:43)
[2017-10-29] MEDS: Magnesium Oxide TAB* 400 MG PO SCH (09:11)
[2017-10-29] MEDS: Fluticasone NASAL SPRAY 50MCG* 16 gm SPRAY BTL BOTH NARES SCH (09:11)
[2017-10-29] MEDS: Rivaroxaban TAB(*) 20 MG TAB PO SCH (09:11)
--- NOTE | 2017-10-29 10:20 | PN ---
Subjective Date of Service: 10/29/17 Interval History: Patient seen and examined at bedside. Denies fever, chills, shortness of breath (at baseline per Pt), chest discomfort, N/V/D. Pt's family continues to feel that she is weaker and more short of breath then she was prior to her last admission. We discussed that this could be her new baseline. They are requesting a PT eval. Tele: Sinus rhythm, rate 60-80's. Family History: Unchanged from Admission Social History: Unchanged from Admission Past Medical History: Unchanged from Admission Objective Active Medications: Acetaminophen (Tylenol Tab*) 650 mg PO Q6H PRN Reason: FEVER/PAIN Acetaminophen/Codeine Phosphate (Tylenol/Codeine 30 Mg Tab*) 1 tab PO BID [facility] Albuterol (Ventolin 2.5 Mg/3 Ml Neb.Ijeoma*) 2.5 mg INH Q2H PRN Reason: SOB/ WHEEZING Atenolol (Tenormin Tab*) 25 mg PO DAILY [facility] Atorvastatin Calcium (Lipitor*) 10 mg PO BEDTIME [facility] Benzonatate (Tessalon Cap*) 100 mg PO BID PRN Reason: COUGH Cetirizine HCl (Zyrtec*) 10 mg PO DAILY [facility]; Protocol Cholecalciferol (Vitamin D Tab*) 1,000 units PO DAILY [facility] Clotrimazole (Mycelex Michael*) 10 mg PO FIVE TIMES DAILY [facility] Cyanocobalamin (Vitamin B12 Tab*) 1,000 mcg PO EVERY OTHER DAY [facility] Device (Tiotropium Inhaler Device*) 1 each INH .USE w/ SPIRIVA CAPS [facility] Docusate Sodium (Colace Cap*) 100 mg PO BID [facility] Doxycycline Hyclate (Vibramycin Cap(*)) 100 mg PO BID [facility] Stop: 10/30/17 09:01 Fluoxetine HCl (Prozac Cap*) 40 mg PO DAILY [facility] Fluticasone Propionate (Flonase Nasal [place] 50mcg*) 2 spray BOTH NARES DAILY [facility] Guaifenesin (Mucinex*) 1,200 mg PO BID [facility] Hydralazine HCl (Apresoline Iv*) 5 mg IV SLOW PU Q6H PRN Reason: BLOOD PRESSURE Levothyroxine Sodium (Synthroid Tab*) 112 mcg PO 0600 [facility] Lisinopril (Prinivil Tab*) 40 mg PO DAILY [facility] Loperamide HCl (Imodium Cap*) 2 mg PO TID PRN Reason: DIARRHEA Lorazepam (Ativan Tab(*)) 0.25 mg PO BEDTIME PRN Reason: ANXIETY Magnesium Oxide (Magox 400 Tab*) 400 mg PO DAILY [facility] Mometasone Furoate/Formoterol Fumar (Dulera 200/5 Mdi*) 2 puff INH BID [facility]; Protocol Montelukast Sodium (Singulair Tab*) 10 mg PO BEDTIME [facility] Multivitamins/Minerals (Theragran/Minerals Tab*) 1 tab PO DAILY [facility] Omeprazole (Prilosec Cap*) 20 mg PO 0730 [facility] Ondansetron HCl (Zofran 40 Mg Vial*) 4 mg IV Q6H PRN Reason: NAUSEA Prednisone (Deltasone Tab*) 40 mg PO DAILY [facility] Rivaroxaban (Xarelto(*)) 20 mg PO DAILY [facility] Tiotropium [place] (Spiriva Cap.Inh*) 1 cap INH DAILY [facility] Vital Signs - 8 hr 10/29/17 10/29/17 10/29/17 03:50 07:28 07:53 Temperature 97.2 F Pulse Rate 70 92 Respiratory 20 20 16 Rate Blood Pressure 155/69 (mmHg) O2 Sat by Pulse 95 96 Oximetry 10/29/17 10/29/17 10/29/17 08:34 09:09 09:17 Temperature 98.0 F Pulse Rate 87 Respiratory 24 22 Rate Blood Pressure 120/63 (mmHg) O2 Sat by Pulse 84 92 Oximetry Oxygen Devices in Use Now: Nasal Cannula - 5L Appearance: NAD, sitting up in a chair Ears/Nose/Mouth/Throat: Mucous Membranes Moist Respiratory: Symmetrical Chest Expansion and Respiratory Effort, Clear to Auscultation - , diminished Cardiovascular: NL Sounds; No Murmurs; No JVD, RRR Abdominal: NL Sounds; No Tenderness; No Distention Extremities: No Edema Skin: No Rash or Ulcers Neurological: Alert and Oriented x 3, NL Muscle Strength and Tone Lines/Tubes/Other Access: Clean, Dry and Intact Peripheral IV - site benign Nutrition: Taking PO's Result Diagrams: 10/27/17 06:05 10/26/17 06:56 Microbiology and Other Data: Microbiology 10/22/17 17:42 Aerobic Blood Culture - Preliminary Blood Venous No Growth Day 2 Anaerobic Blood Culture - Preliminary No Growth Day 2 10/22/17 17:42 Aerobic Blood Culture - Preliminary Blood Venous No Growth Day 2 Anaerobic Blood Culture - Preliminary No Growth Day 2 Assess/Plan/Problems-Billing ASSESSMENT: Ms Keita is a 77 yo F who has a h/o O2 dependent COPD and chronic hypoxic respiratory failure, afib, HTN, HLD, and chronic leukocytosis and thrombocytopenia who presented to the ER with c/o severe SOB and was admitted for a COPD exacerbation. - Patient Problems (1) COPD exacerbation Code(s): J44.1 - CHRONIC OBSTRUCTIVE PULMONARY DISEASE W (ACUTE) EXACERBATION SNOMED Code(s): 561108891402357 Comment: - Pt titrated down to 2.5 L O2 (3 L baseline at home), now up to 5 L - She still has diminshed breath sounds at the bases but overall she is improving - Completed 5 day course of ceftriaxone - Dr. Singh will see later today - Continue doxy, day 11/10 and slow prednisone taper (working towards baseline dose of 5mg) (2) Anemia Code(s): D64.9 - ANEMIA, UNSPECIFIED SNOMED Code(s): 403234676 Comment: - Received 1 unit PRBC 10/25 for progressively dropping H/H - ? secondary to hydrea vs other cause. Dr. Ram ordered some labs to eval. (3) Essential thrombocythemia Code(s): D47.3 - ESSENTIAL (HEMORRHAGIC) THROMBOCYTHEMIA SNOMED Code(s): 238689141 Comment: - Platelets climbing but hydrea placed on hold per Dr Ram for now. (4) Atrial fibrillation Code(s): I48.91 - UNSPECIFIED ATRIAL FIBRILLATION SNOMED Code(s): 53045974 Comment: - NSR at this time - Continue xarelto and atenolol (5) History of pulmonary embolus (PE) Code(s): Z86.711 - PERSONAL HISTORY OF PULMONARY EMBOLISM SNOMED Code(s): 955442748 Comment: - Continue xarelto. (6) Hyperlipidemia Code(s): E78.5 - HYPERLIPIDEMIA, UNSPECIFIED SNOMED Code(s): 20006836 Comment: - Continue lipitor. (7) Chronic respiratory failure Code(s): J96.10 - CHRONIC RESPIRATORY FAILURE, UNSP W HYPOXIA OR HYPERCAPNIA SNOMED Code(s): 51232160 Comment: - Acute on chronic hypoxic respitatory failure, increased O2 needs this AM - Secondary to COPD - O2 and steroid dependent (5mg) (8) HTN (hypertension) Code(s): I10 - ESSENTIAL (PRIMARY) HYPERTENSION SNOMED Code(s): 41444427 Comment: - SBP 120-150's - Continue atenolol and lisinopril (9) Hypothyroid Code(s): E03.9 - HYPOTHYROIDISM, UNSPECIFIED SNOMED Code(s): 13185891 Comment: - TSH 1.43 on 07/03/17 - Continue synthroid (10) DVT prophylaxis Code(s): CYV5145 - SNOMED Code(s): 602189658 Comment: - Xarelto (11) Full code status Code(s): Z78.9 - OTHER SPECIFIED HEALTH STATUS SNOMED Code(s): 652331159 Status and Disposition: Inpatient. Discharge to home when medically stable, plan for discharge in the AM.
[2017-10-29] MEDS ORDERED: Furosemide TAB* 20 MG PO ONE (17:19)
[2017-10-29] MEDS: Atorvastatin* 10 MG TAB PO SCH (19:41)
[2017-10-29] MEDS: Montelukast Sodium TAB* 10 MG PO SCH (19:47)
--- NOTE | 2017-10-29 22:20 | CONS ---
PULMONARY CONSULTATION REPORT: DATE OF CONSULT: 10/29/17 CONSULTATION REQUESTED BY: Zeynep More NP REASON FOR CONSULT: Evaluation of shortness of breath. 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 The patient was recently hospitalized 2 weeks ago for management of COPD exacerbation and rapid AFib that required diltiazem drip. She was managed in the ICU, was discharged in 2 days. The patient reports that shortness of breath has been gradually worsening since that time. The patient has been trying inhalers at home with no relief. Her symptoms have worsened significantly and decided to come into the emergency room. The patient also reports increasing swelling in lower extremities, mostly in the right lower extremity. She is on Lasix 20 mg that she takes 3 times a week. The patient reports that she has been compliant with Lasix at home. The patient was noted to be having significant iron-deficiency anemia upon evaluation. The patient received 1 unit of PRBC. The patient has required high-flow O2 and was managed in the ICU. The patient was subsequently transferred to the floor. The patient was seen and examined at bedside. The patient reports slight improvement in her shortness of breath. The patient reports that she had trauma to her right lower extremity and always had extremity swollen, which is probably swollen than before. The patient reports compliance with all her inhalers as prescribed. The patient denies chest pain, palpitations, dizziness , loss of weight or appetite. She did have an episode of palpitation before she came in that did not result in dizziness. She has been compliant with O2 at 3 L per minute. The patient reports that she gets very anxious when she is short of breath and hyperventilates. The patient also was initiated on prednisone 40 mg daily. The patient does not appear to be dyspneic at rest. She has not been using accessory muscles of respiration. She has been tapered off oxygen and is currently at 3 L per minute. PAST MEDICAL HISTORY: 1. COPD with chronic respiratory failure, on 3 L oxygen at home. 2. Atrial fibrillation. 3. TIA. 4. Hypertension. 5. Dyslipidemia. 6. Hypothyroidism. 7. Pulmonary embolism. 8. 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 PAST SURGICAL HISTORY: Tubal ligation, tonsillectomy. MEDICATIONS: 1. Omeprazole. 2. Fluoxetine. 3. Atorvastatin. 4. Singulair. 5. Levothyroxine. 6. Alendronate. 7. Combivent. 8. Calcium. 9. Symbicort. 10. Ipratropium. 11. Lasix. 12. Magnesium. 13. Iron. 14. Vitamin B12. 15. Albuterol. 16. Rivaroxaban. 17. Cholecalciferol. 18. Guaifenesin. 19. Docusate. 20. Fluticasone. 21. Multivitamin. 22. Lorazepam. 23. Tiotropium. 24. Atenolol. 25. Loperamide. 26. Cetirizine. 27. Albuterol. 28. Propylene glycol. 29. Lisinopril. 30. Tylenol. 31. Hydroxyurea. 32. Tylenol with Codeine. ALLERGIES: AMLODIPINE, AZITHROMYCIN, CLARITHROMYCIN, GARLIC. FAMILY HISTORY: The patient's mother with acute leukemia. Father had complications from stroke. Brother has heart disease. SOCIAL HISTORY: Smoker, [id number] smoking history. No drug or alcohol abuse. 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 REVIEW OF SYSTEMS: All 14 systems reviewed and as per HPI. PHYSICAL EXAM: The patient is in bed, in no apparent distress. Vital Signs: Temperature 97.6, pulse 72 beats per minute, respiratory rate 24 per minute, O2 sat 89% to 91% on 3 L, blood pressure 135/53. HEENT: Pupils are equal, reactive to light. Mucous membranes moist. Lungs: Diminished air entry bilaterally and distant breath sounds, decreased at bases. Cardiovascular: S1 , S2 present. Regular. Abdomen: Soft. Bowel sounds present. Nontender, nondistended. Extremities: Right lower extremity bigger than left lower extremity with slight pitting edema. Neuro: No focal deficits. Alert, awake, oriented x3. Skin: Bruises from blood draws. No rash. DIAGNOSTIC STUDIES/LAB DATA: WBC count 14.6, hemoglobin 8.7, platelet count 438. Sodium 138, potassium 4.2, chloride 105, bicarb 28, BUN 16, creatinine 0.89. Chest x-ray performed on admission was personally reviewed by me. Evidence of airspace opacities bilaterally at the bases and left pleural effusion. Venous Dopplers: No evidence of DVT in the right lower extremity. IMPRESSION AND RECOMMENDATIONS: 77-year-old female with history of chronic obstructive pulmonary disease, on home O2; history of pulmonary embolism; history of thrombocytopenia and leukopenia, on Gleevec, with worsening shortness of breath in the setting of anemia, the patient's baseline hemoglobin around 10 to 11 with acute drop to 7.5 to 8.5, status post 1 unit PRBC, stable currently. The patient denies any acute GI bleed. She is also started on iron supplementation. It is attributed to Hydrea, which is stopped. I do not think the patient's shortness of breath is from acute chronic obstructive pulmonary disease exacerbation. She does not have any wheezing on auscultation. She does have diminished breath sounds, which is likely secondary to underlying chronic obstructive pulmonary disease. She does have evidence of patchy airspace opacities at bases, which could be indicative of pneumonia or atelectasis along with pleural effusion on the left side. She is empirically being covered with antibiotics and prednisone taper. Would recommend tapering prednisone to her baseline dose of 5 mg. She is on Lasix 20 mg 3 times a week at home. She is not being continued on that given underlying fluid overload picture. It would be imperative to continue with her home dose of Lasix. Her creatinine and BUN are within normal limits as are her electrolytes. The patient has minimal reserve due to her underlying lung disease, which might have resulted in acute worsening of shortness of breath given drop in hemoglobin and also fluid overload. Would recommend incentive spirometry. Continue with the prednisone taper. Restart home dose of Lasix. Continue tapering oxygen to maintain oxygen saturation around 90% to 92%. Again, continue with bronchodilators and continue to taper prednisone over the next week to baseline dose of 5 mg. Thank you for allowing me to participate in the care of your patient. Will follow up with you. [id number]/[facility] #: [id number] LYN
[2017-10-30] MEDS: Albuterol 2.5 MG/3 ML NEB.SOL* (0.083%) INH PRN ×3 (00:59→09:38)
[2017-10-30] MEDS: Levothyroxine TAB* 112 MCG TAB PO SCH (05:30)
[2017-10-30] MEDS: Clotrimazole TROCHE* 10 MG TROCHE PO SCH ×5 (05:30→21:59)
[2017-10-30] MEDS: Omeprazole CAP* 20 MG PO SCH (05:30)
[2017-10-30] MEDS ORDERED: Morphine VIAL* 4 MG/ML VIAL (1 ml vial) IV ONE (06:06)
--- NOTE | 2017-10-30 06:26 | PN ---
Progress Note - Progress Note Date of Service: 10/30/17 Note: Nursing & RT called re: increased SOB, WOB, & oxygen requirement increased from 3L NC to 15L oxymask with saO2 remaining in the high 80s. Albuterol neb did not help. Upon my arrival she is sitting upon the bed, tachypneic in the low 30s with mild accessory muscle use. Lungs are clear. CV is RRR. Abdomen is SNTND. 2mg IV morphine were ordered with rapid improvement in tachypnea, WOB, and saO2 increasing into the low 90s. Nursing & RT advised to keep a close eye on her and report any worsening.
--- NOTE | 2017-10-30 09:03 | PN ---
Subjective Date of Service: 10/30/17 Interval History: Patient seen and examined at bedside. Denies fever, chills, chest discomfort, N/ V/D. Pt states that she had sudden onset of increased shortness of breath while sitting in bed earlier this morning. She had been weaned down to O2 at 1.5L via NC, she was then increased to 15 L via oximask. Pt has been able to be weaned back down to her home O2 of 3L. Discussed with Pt going to rehab for a short period of time. Tele: Sinus rhythm to sinus tach, rate 60-100's. Family History: Unchanged from Admission Social History: Unchanged from Admission Past Medical History: Unchanged from Admission Objective Active Medications: Acetaminophen (Tylenol Tab*) 650 mg PO Q6H PRN Reason: FEVER/PAIN Acetaminophen/Codeine Phosphate (Tylenol/Codeine 30 Mg Tab*) 1 tab PO BID [facility] Albuterol (Ventolin 2.5 Mg/3 Ml Neb.Ijeoma*) 2.5 mg INH Q2H PRN Reason: SOB/ WHEEZING Atenolol (Tenormin Tab*) 25 mg PO DAILY [facility] Atorvastatin Calcium (Lipitor*) 10 mg PO BEDTIME [facility] Benzonatate (Tessalon Cap*) 100 mg PO BID PRN Reason: COUGH Cetirizine HCl (Zyrtec*) 10 mg PO DAILY [facility]; Protocol Cholecalciferol (Vitamin D Tab*) 1,000 units PO DAILY [facility] Clotrimazole (Mycelex Michael*) 10 mg PO FIVE TIMES DAILY [facility] Cyanocobalamin (Vitamin B12 Tab*) 1,000 mcg PO EVERY OTHER DAY [facility] Device (Tiotropium Inhaler Device*) 1 each INH .USE w/ SPIRIVA CAPS [facility] Docusate Sodium (Colace Cap*) 100 mg PO BID PRN Reason: CONSTIPATION Doxycycline Hyclate (Vibramycin Cap(*)) 100 mg PO BID [facility] Stop: 10/30/17 09:01 Fluoxetine HCl (Prozac Cap*) 40 mg PO DAILY [facility] Fluticasone Propionate (Flonase Nasal [place] 50mcg*) 2 spray BOTH NARES DAILY [facility] Furosemide (Lasix Tab*) 20 mg PO MOWEFR [facility] Guaifenesin (Mucinex*) 1,200 mg PO BID [facility] Hydralazine HCl (Apresoline Iv*) 5 mg IV SLOW PU Q6H PRN Reason: BLOOD PRESSURE Levothyroxine Sodium (Synthroid Tab*) 112 mcg PO 0600 [facility] Lisinopril (Prinivil Tab*) 40 mg PO DAILY [facility] Loperamide HCl (Imodium Cap*) 2 mg PO TID PRN Reason: DIARRHEA Magnesium Oxide (Magox 400 Tab*) 400 mg PO DAILY [facility] Mometasone Furoate/Formoterol Fumar (Dulera 200/5 Mdi*) 2 puff INH BID [facility]; Protocol Montelukast Sodium (Singulair Tab*) 10 mg PO BEDTIME [facility] Multivitamins/Minerals (Theragran/Minerals Tab*) 1 tab PO DAILY [facility] Omeprazole (Prilosec Cap*) 20 mg PO 0730 [facility] Ondansetron HCl (Zofran 40 Mg Vial*) 4 mg IV Q6H PRN Reason: NAUSEA Prednisone (Deltasone Tab*) 30 mg PO DAILY [facility] Rivaroxaban (Xarelto(*)) 20 mg PO DAILY [facility] Tiotropium [place] (Spiriva Cap.Inh*) 1 cap INH DAILY [facility] Vital Signs - 8 hr 10/30/17 10/30/17 10/30/17 00:59 02:20 03:40 Temperature 97.5 F Pulse Rate 90 70 Respiratory 18 20 20 Rate Blood Pressure 152/55 (mmHg) O2 Sat by Pulse 95 93 Oximetry 10/30/17 10/30/17 10/30/17 05:39 05:57 06:16 Temperature Pulse Rate 90 Respiratory 20 20 Rate Blood Pressure (mmHg) O2 Sat by Pulse 93 90 Oximetry 10/30/17 10/30/17 10/30/17 07:31 07:46 07:53 Temperature Pulse Rate 92 Respiratory 22 22 Rate Blood Pressure (mmHg) O2 Sat by Pulse 100 95 Oximetry 10/30/17 08:08 Temperature Pulse Rate 80 Respiratory Rate Blood Pressure (mmHg) O2 Sat by Pulse 93 Oximetry Oxygen Devices in Use Now: OxyMask - 5L Appearance: NAD, sitting up in bed Ears/Nose/Mouth/Throat: Mucous Membranes Moist Respiratory: Symmetrical Chest Expansion and Respiratory Effort, - - Lung sounds diminished with wheezing bilateral Cardiovascular: NL Sounds; No Murmurs; No JVD, RRR Abdominal: NL Sounds; No Tenderness; No Distention Extremities: - - Trace bilateral LE edema Skin: No Rash or Ulcers Neurological: Alert and Oriented x 3, NL Muscle Strength and Tone Lines/Tubes/Other Access: Clean, Dry and Intact Peripheral IV - site benign Nutrition: Taking PO's Result Diagrams: 10/30/17 10:42 10/30/17 10:42 Microbiology and Other Data: Microbiology 10/22/17 17:42 Aerobic Blood Culture - Preliminary Blood Venous No Growth Day 2 Anaerobic Blood Culture - Preliminary No Growth Day 2 10/22/17 17:42 Aerobic Blood Culture - Preliminary Blood Venous No Growth Day 2 Anaerobic Blood Culture - Preliminary No Growth Day 2 Assess/Plan/Problems-Billing ASSESSMENT: Ms Keita is a 77 yo F who has a h/o O2 dependent COPD and chronic hypoxic respiratory failure, afib, HTN, HLD, and chronic leukocytosis and thrombocytopenia who presented to the ER with c/o severe SOB and was admitted for a COPD exacerbation. - Patient Problems (1) Anxiety Code(s): F41.9 - ANXIETY DISORDER, UNSPECIFIED SNOMED Code(s): 03465278 Comment: - Suspect this is playing a role in her increaed SOB today - Psych consult, pending - Continue prozac and will give ativan now (2) COPD exacerbation Code(s): J44.1 - CHRONIC OBSTRUCTIVE PULMONARY DISEASE W (ACUTE) EXACERBATION SNOMED Code(s): 517168738877992 Comment: - Pt was titrated down to 3 L (baseline at home), but with increased need this AM - She still has diminshed breath sounds at the bases but overall she is improving. Some increased SOB with AM - Completed 5 day course of ceftriaxone and doxy - Dr. Singh consult, input appreciated - Continue prednisone taper (working towards baseline dose of 5mg) - ? component of fluid overload, given lasix yesterday and resume home dosing - Will check a chest xray this AM (3) Anemia Code(s): D64.9 - ANEMIA, UNSPECIFIED SNOMED Code(s): 090122795 Comment: - Received 1 unit PRBC 10/25 for progressively dropping H/H - ? secondary to hydrea vs other cause. Dr. Ram ordered some labs to eval. (4) Essential thrombocythemia Code(s): D47.3 - ESSENTIAL (HEMORRHAGIC) THROMBOCYTHEMIA SNOMED Code(s): 903972198 Comment: - Platelets climbing but hydrea placed on hold per Dr Ram for now. (5) Atrial fibrillation Code(s): I48.91 - UNSPECIFIED ATRIAL FIBRILLATION SNOMED Code(s): 23273193 Comment: - NSR at this time - Continue xarelto and atenolol (6) History of pulmonary embolus (PE) Code(s): Z86.711 - PERSONAL HISTORY OF PULMONARY EMBOLISM SNOMED Code(s): 107346649 Comment: - Continue xarelto. (7) Hyperlipidemia Code(s): E78.5 - HYPERLIPIDEMIA, UNSPECIFIED SNOMED Code(s): 93394053 Comment: - Continue lipitor. (8) Chronic respiratory failure Code(s): J96.10 - CHRONIC RESPIRATORY FAILURE, UNSP W HYPOXIA OR HYPERCAPNIA SNOMED Code(s): 14250533 Comment: - Acute on chronic hypoxic respitatory failure, increased O2 needs this AM - Secondary to COPD - O2 and steroid dependent (5mg) (9) HTN (hypertension) Code(s): I10 - ESSENTIAL (PRIMARY) HYPERTENSION SNOMED Code(s): 09784148 Comment: - SBP 120-150's - Continue atenolol and lisinopril (10) Hypothyroid Code(s): E03.9 - HYPOTHYROIDISM, UNSPECIFIED SNOMED Code(s): 08923166 Comment: - TSH 1.43 on 07/03/17 - Continue synthroid (11) DVT prophylaxis Code(s): ATX3099 - SNOMED Code(s): 453288547 Comment: - Xarelto (12) Full code status Code(s): Z78.9 - OTHER SPECIFIED HEALTH STATUS SNOMED Code(s): 604981819 Status and Disposition: Inpatient. Discharge to home when medically stable, plan for discharge in the AM.
[2017-10-30] MEDS: Fluticasone NASAL SPRAY 50MCG* 16 gm SPRAY BTL BOTH NARES SCH (09:25)
[2017-10-30] MEDS: Atenolol TAB* 25 MG PO SCH (09:26)
[2017-10-30] MEDS: Cetirizine* 10 MG TAB PO SCH (09:27)
[2017-10-30] MEDS: Cyanocobalamin TAB* 500 MCG PO SCH (09:27)
[2017-10-30] MEDS: guaiFENesin ER TAB 600 MG PO SCH ×2 (09:28→20:25)
[2017-10-30] MEDS: predniSONE TAB* 10 MG PO SCH (09:28)
[2017-10-30] MEDS: Cholecalciferol TAB* 1000 UNITS PO SCH (09:31)
[2017-10-30] MEDS: Rivaroxaban TAB(*) 20 MG TAB PO SCH (09:32)
[2017-10-30] MEDS: Lisinopril TAB* 10 MG PO SCH (09:32)
[2017-10-30] MEDS: Multivitamins/Minerals TAB PO SCH (09:32)
[2017-10-30] MEDS: FLUoxetine CAP* 20 MG PO SCH (09:33)
[2017-10-30] MEDS: DOXYcycline CAP(*) 100 MG PO SCH (09:33)
[2017-10-30] MEDS: Magnesium Oxide TAB* 400 MG PO SCH (09:34)
[2017-10-30] MEDS: Tiotropium CAP.INH* CAP.INH/18 MCG (USE ORDER SET !) INH SCH (09:45)
[2017-10-30] MEDS: Mometasone/Formoter 200/5 MDI INH SCH ×2 (09:46→21:27)
[2017-10-30] MEDS ORDERED: LORazepam TAB(*) 0.5 MG PO ONE (10:04)
[2017-10-30 11:09] LABS: Hematocrit 30 % (35-47); Hemoglobin 9.7 g/dl (12.0-16.0); Mean Corpuscular HGB Conc 33 g/dl (31-36); Mean Corpuscular Hemoglobin 38 pg (27-31); Mean Corpuscular Volume 116 fL (80-97); Mean Platelet Volume 10.3 um3 (7.4-10.4); Platelet Count 440 10^3/ul (150-450); Red Blood Count 2.58 10^6/ul (4.00-5.40); Red Cell Distribution Width 25 % (10.5-15); White Blood Count 16.1 10^3/ul (3.5-10.8)
[2017-10-30 11:24] LABS: EGFR Non-African American 57.4 (>60)
[2017-10-30 11:32] LABS: ABS Basophils 0 10^3/ul (0-0.2); ABS Eosinophils 0.1 10^3/ul (0-0.6); ABS Lymphocytes 7.2 10^3/ul (1.0-4.8); ABS Monocytes 0.9 10^3/ul (0-0.8); ABS Neutrophils 7.8 10^3/ul (1.5-7.7); ABS Nucleated RBC 0 10^3/ul; Eosinophil % 0.6 % (0-6); Lymphocyte % 45.1 % (25-47)
[2017-10-30 11:33] LABS: Nucleated Red Blood Cells % 0.2
--- NOTE | 2017-10-30 15:15 | CONSULT ---
Consult Consult: I have reviewed the patient's record, spoken with attending, Zeynep Hopson, and discussed the patient's presentation with Crisis Conveyor Belt Operator Rober Simeon. The patient has a long-standing history of anxiety, even prior to acute corticosteroid treatment. She is requesting prn lorazepam be added to her regimen. She denies SI or history of addictive illness. I recommend increasing fluoxetine from 40 to 60mg daily. If respiratory suppression is not a concern then lorazepam 0.5mg every 8 hours as needed would be reasonable. If respiratory suppression is a concern, given her end-stage COPD, then buspirone can be initiated at 10mg PO BID. Psychiatry is signing off but can be re- consulted in the event of changes in the patient's presentation.
--- NOTE | 2017-10-30 15:34 | RAD ---
Indication: Shortness of breath. 2 views of the chest are reviewed. Comparison is made to previous exam dated October 23, 2017. Bilateral pleural effusion and right basilar atelectasis is noted. Early pneumonia in the right base cannot BE excluded. Upper lobes are unremarkable. The heart is at the upper limits of normal in size. IMPRESSION: Bibasilar atelectasis with left pleural effusion. Underlying pneumonia in the right base cannot BE excluded.
[2017-10-30] MEDS: Benzonatate CAP* 100 MG PO PRN (20:23)
[2017-10-30] MEDS: Montelukast Sodium TAB* 10 MG PO SCH (20:24)
[2017-10-30] MEDS: Atorvastatin* 10 MG TAB PO SCH (20:25)
[2017-10-30] MEDS: LORazepam TAB(*) 0.5 MG PO PRN (21:58)
[2017-10-31] MEDS ORDERED: Vancomycin(*) 1,000 MG in NS 0.9% 250 ML* 250 ML IVPB SCH (06:00)
[2017-10-31] MEDS: LORazepam TAB(*) 0.5 MG PO PRN ×2 (06:23→22:18)
[2017-10-31] MEDS: Omeprazole CAP* 20 MG PO SCH (06:23)
[2017-10-31] MEDS: Levothyroxine TAB* 112 MCG TAB PO SCH (06:23)
[2017-10-31] MEDS: Clotrimazole TROCHE* 10 MG TROCHE PO SCH ×5 (06:25→22:21)
[2017-10-31 06:38] LABS: Hematocrit 29 % (35-47); Hemoglobin 9.4 g/dl (12.0-16.0); Mean Corpuscular HGB Conc 32 g/dl (31-36); Mean Corpuscular Hemoglobin 37 pg (27-31); Mean Corpuscular Volume 115 fL (80-97); Mean Platelet Volume 10.4 um3 (7.4-10.4); Platelet Count 484 10^3/ul (150-450); Red Blood Count 2.54 10^6/ul (4.00-5.40); Red Cell Distribution Width 24 % (10.5-15); White Blood Count 19.3 10^3/ul (3.5-10.8)
[2017-10-31 07:20] LABS: ABS Eosinophils 0 10^3/ul (0-0.6); ABS Lymphocytes 9.3 10^3/ul (1.0-4.8); ABS Monocytes 0.9 10^3/ul (0-0.8)
[2017-10-31 07:21] LABS: ABS Basophils 0.1 10^3/ul (0-0.2)
[2017-10-31 07:23] LABS: ABS Basophils 0 10^3/ul (0-0.2); ABS Neutrophils 9.5 10^3/ul (1.5-7.7); Monocytes % 2 % (0-7)
[2017-10-31] MEDS: Mometasone/Formoter 200/5 MDI INH SCH ×2 (07:56→21:08)
[2017-10-31] MEDS: Tiotropium CAP.INH* CAP.INH/18 MCG (USE ORDER SET !) INH SCH (07:57)
[2017-10-31] MEDS: Fluticasone NASAL SPRAY 50MCG* 16 gm SPRAY BTL BOTH NARES SCH (09:06)
[2017-10-31] MEDS: guaiFENesin ER TAB 600 MG PO SCH ×2 (09:07→22:18)
[2017-10-31] MEDS: Multivitamins/Minerals TAB PO SCH (09:07)
[2017-10-31] MEDS: Cholecalciferol TAB* 1000 UNITS PO SCH (09:07)
[2017-10-31] MEDS: Furosemide TAB* 20 MG PO SCH (09:07)
[2017-10-31] MEDS: Atenolol TAB* 25 MG PO SCH (09:08)
[2017-10-31] MEDS: Rivaroxaban TAB(*) 20 MG TAB PO SCH (09:09)
[2017-10-31] MEDS: Lisinopril TAB* 10 MG PO SCH (09:09)
[2017-10-31] MEDS: Magnesium Oxide TAB* 400 MG PO SCH (09:09)
[2017-10-31] MEDS: predniSONE TAB* 10 MG PO SCH (09:09)
[2017-10-31] MEDS: Cetirizine* 10 MG TAB PO SCH (09:10)
[2017-10-31] MEDS: FLUoxetine CAP* 20 MG PO SCH (09:10)
--- NOTE | 2017-10-31 16:25 | RAD ---
INDICATION: Airspace disease. COMPARISON: Chest x-ray October 30, 2017 TECHNIQUE: Noncontrast axial source images were obtained from the thoracic inlet to the hemidiaphragms. Coronal and sagittal reconstructed images were acquired. The visualized neck to include the thyroid appear normal. Chest wall: There are no acute abnormalities of the bony thorax or chest wall. There are spondylitic changes of the thoracic spine. There is no supraclavicular, infraclavicular, or axillary lymphadenopathy. Lungs : There are emphysematous changes. There is consolidative change with air bronchograms in the right middle lobe. There is mild consolidative change in the left lung base with findings of of bronchiectasis.. Cardiomediastinal structures: The heart is normal in size. There is no pericardial effusion. There is no evidence of aortic aneurysm or dissection. There are advanced atherosclerotic changes The pulmonary vessels appear normal. There is no mediastinal or hilar adenopathy. The esophagus appears normal. Pleura : There are no pleural-based masses or effusions. Other: There are no acute or significant CT findings of the visualized upper abdomen. IMPRESSION: RIGHT MIDDLE LOBE CONSOLIDATIVE CHANGE WITH AIR BRONCHOGRAMS. IN THE APPROPRIATE SETTING THIS IS CONSISTENT WITH AN ACUTE PNEUMONITIS. CHRONIC APPEARING CHANGES IN LEFT LUNG BASE WITH BRONCHIECTASIS
[2017-10-31] MEDS ORDERED: Piperacillin/Tazobac ADVAN(*) 3.375 GM in NS 0.9% 100 ML* 100 ML IVPB ONE (17:18)
--- NOTE | 2017-10-31 17:21 | PN ---
Subjective Date of Service: 10/31/17 Interval History: SOB persists but feels better. On 5L currently Using IS intermittently Walking to bathroom makes her more SOB. Anxiety ok today Family History: Unchanged from Admission Social History: Unchanged from Admission Past Medical History: Unchanged from Admission Objective Active Medications: Acetaminophen (Tylenol Tab*) 650 mg PO Q6H PRN PRN Reason: FEVER/PAIN Last Admin: 10/26/17 02:30 Dose: 650 mg Albuterol (Ventolin 2.5 Mg/3 Ml Neb.Ijeoma*) 2.5 mg INH Q2H PRN PRN Reason: SOB/WHEEZING Last Admin: 10/30/17 09:38 Dose: 2.5 mg Atenolol (Tenormin Tab*) 25 mg PO DAILY [facility] Last Admin: 10/31/17 09:08 Dose: 25 mg Atorvastatin Calcium (Lipitor*) 10 mg PO BEDTIME [facility] Last Admin: 10/30/17 20:25 Dose: 10 mg Benzonatate (Tessalon Cap*) 100 mg PO BID PRN PRN Reason: COUGH Last Admin: 10/30/17 20:23 Dose: 100 mg Cetirizine HCl (Zyrtec*) 10 mg PO DAILY [facility]; Protocol Last Admin: 10/31/17 09:10 Dose: 10 mg Cholecalciferol (Vitamin D Tab*) 1,000 units PO DAILY [facility] Last Admin: 10/31/17 09:07 Dose: 1,000 units Clotrimazole (Mycelex Michael*) 10 mg PO FIVE TIMES DAILY [facility] Last Admin: 10/31/17 13:51 Dose: 10 mg Cyanocobalamin (Vitamin B12 Tab*) 1,000 mcg PO EVERY OTHER DAY [facility] Last Admin: 10/30/17 09:27 Dose: 1,000 mcg Device (Tiotropium Inhaler Device*) 1 each INH .USE w/ SPIRIVA CAPS [facility] Docusate Sodium (Colace Cap*) 100 mg PO BID PRN PRN Reason: CONSTIPATION Fluoxetine HCl (Prozac Cap*) 60 mg PO DAILY [facility] Last Admin: 10/31/17 09:10 Dose: 60 mg Fluticasone Propionate (Flonase Nasal [place] 50mcg*) 2 spray BOTH NARES DAILY [facility] Last Admin: 10/31/17 09:06 Dose: 2 spray Furosemide (Lasix Tab*) 20 mg PO MOWEFR [facility] Last Admin: 10/31/17 09:07 Dose: 20 mg Guaifenesin (Mucinex*) 1,200 mg PO BID [facility] Last Admin: 10/31/17 09:07 Dose: 1,200 mg Hydralazine HCl (Apresoline Iv*) 5 mg IV SLOW PU Q6H PRN PRN Reason: BLOOD PRESSURE Last Admin: 10/28/17 13:20 Dose: 5 mg Levothyroxine Sodium (Synthroid Tab*) 112 mcg PO 0600 [facility] Last Admin: 10/31/17 06:23 Dose: 112 mcg Lisinopril (Prinivil Tab*) 40 mg PO DAILY [facility] Last Admin: 10/31/17 09:09 Dose: 40 mg Loperamide HCl (Imodium Cap*) 2 mg PO TID PRN PRN Reason: DIARRHEA Lorazepam (Ativan Tab(*)) 0.5 mg PO Q8H PRN PRN Reason: ANXIETY Last Admin: 10/31/17 06:23 Dose: 0.5 mg Magnesium Oxide (Magox 400 Tab*) 400 mg PO DAILY [facility] Last Admin: 10/31/17 09:09 Dose: 400 mg Mometasone Furoate/Formoterol Fumar (Dulera 200/5 Mdi*) 2 puff INH BID [facility]; Protocol Last Admin: 10/31/17 07:56 Dose: 2 puff Montelukast Sodium (Singulair Tab*) 10 mg PO BEDTIME [facility] Last Admin: 10/30/17 20:24 Dose: 10 mg Multivitamins/Minerals (Theragran/Minerals Tab*) 1 tab PO DAILY [facility] Last Admin: 10/31/17 09:07 Dose: 1 tab Omeprazole (Prilosec Cap*) 20 mg PO 0730 [facility] Last Admin: 10/31/17 06:23 Dose: 20 mg Ondansetron HCl (Zofran 40 Mg Vial*) 4 mg IV Q6H PRN PRN Reason: NAUSEA Prednisone (Deltasone Tab*) 30 mg PO DAILY [facility] Last Admin: 10/31/17 09:09 Dose: 30 mg Rivaroxaban (Xarelto(*)) 20 mg PO DAILY [facility] Last Admin: 10/31/17 09:09 Dose: 20 mg Tiotropium [place] (Spiriva Cap.Inh*) 1 cap INH DAILY [facility] Last Admin: 10/31/17 07:57 Dose: 1 cap.inh Vital Signs - 8 hr 10/31/17 10/31/17 10/31/17 09:58 11:15 15:41 Temperature 97.7 F 97.7 F Pulse Rate 80 74 Respiratory 20 20 16 Rate Blood Pressure 135/49 119/54 (mmHg) O2 Sat by Pulse 90 95 Oximetry Oxygen Devices in Use Now: Nasal Cannula Appearance: sitting up. NAD Eyes: No Scleral Icterus, PERRLA Ears/Nose/Mouth/Throat: NL Teeth, Lips, Gums, Clear Oropharnyx Neck: NL Appearance and Movements; NL JVP, Trachea Midline Respiratory: Symmetrical Chest Expansion and Respiratory Effort, - - decreased BS in right base with dullness to percussion Cardiovascular: RRR Abdominal: NL Sounds; No Tenderness; No Distention, No Hepatosplenomegaly Lymphatic: No Cervical Adenopathy Extremities: No Edema Skin: No Rash or Ulcers Neurological: Alert and Oriented x 3 Result Diagrams: 10/31/17 06:08 10/30/17 10:42 Microbiology and Other Data: Microbiology 10/22/17 17:42 Aerobic Blood Culture - Preliminary Blood Venous No Growth Day 2 Anaerobic Blood Culture - Preliminary No Growth Day 2 10/22/17 17:42 Aerobic Blood Culture - Preliminary Blood Venous No Growth Day 2 Anaerobic Blood Culture - Preliminary No Growth Day 2 Assess/Plan/Problems-Billing ASSESSMENT: Ms Keita is a 77 yo F who has a h/o COPD and chronic hypoxic respiratory failure, afib, HTN, HLD, and chronic leukocytosis and thrombocytopenia who presented to the ER with c/o severe SOB and was admitted for a COPD exacerbation. - Patient Problems (1) Respiratory failure Comment: improving from COPD exacerbation with worsening overnight no fevers, WBC unreliable checked CT and found with consolidative changes start vanco/zosyn and will discuss further with pulmonology (2) COPD exacerbation Comment: - Completed 5 day course of ceftriaxone and doxy - Dr. Singh consult, input appreciated - Continue prednisone taper (working towards baseline dose of 5mg) (3) Anemia Comment: - Received 1 unit PRBC 10/25 for progressively dropping H/H -appreciate heme consult -hydrea on hold until after discharge (4) Anxiety Comment: Appreciate Psych consult fluoxetine increased from 40 to 60mg lorazaepam PRN added can consider buspar in addition. I have not added today with better control seen from above interventions (5) Atrial fibrillation Comment: -currently NSR - Continue xarelto and atenolol (6) HTN (hypertension) Comment: - - Continue atenolol, lisinopril, lasix (7) DVT prophylaxis Comment: - Xarelto Status and Disposition: Inpatient. Discharge to home when medically stable
[2017-10-31] MEDS ORDERED: Zosyn per Pharmacy* NOTE FOLLOW UP SCH (18:00)
[2017-10-31] MEDS ORDERED: Vancomycin per Pharmacy* NOTE FOLLOW UP SCH (18:00)
[2017-10-31] MEDS ORDERED: Vancomycin(*) 1,250 MG in NS 0.9% 250 ML* 250 ML IVPB ONE (18:00)
[2017-10-31] MEDS ORDERED: Potassium Chlor TAB* 20 MEQ TAB.ER PO ONE (22:00)
[2017-10-31] MEDS: ZOSYN 3.375 GM Q8H per EXTENDED INFUSION IVPB SCH ×2 (22:15)
[2017-10-31] MEDS: Montelukast Sodium TAB* 10 MG PO SCH (22:18)
[2017-10-31] MEDS: Atorvastatin* 10 MG TAB PO SCH (22:18)
[2017-10-31] MEDS: Benzonatate CAP* 100 MG PO PRN (22:29)
[2017-10-31] MEDS ORDERED: Magnesium Sulfate 2 GM IV* 2 GM/50 ML BAG IVPB ONE (22:48)
[2017-11-01] MEDS: ZOSYN 3.375 GM Q8H per EXTENDED INFUSION IVPB SCH ×6 (05:43→22:05)
[2017-11-01] MEDS: Omeprazole CAP* 20 MG PO SCH (05:52)
[2017-11-01] MEDS: Clotrimazole TROCHE* 10 MG TROCHE PO SCH ×5 (05:52→22:13)
[2017-11-01] MEDS: LORazepam TAB(*) 0.5 MG PO PRN ×2 (05:52→22:13)
[2017-11-01] MEDS: Levothyroxine TAB* 112 MCG TAB PO SCH (05:52)
[2017-11-01 06:44] LABS: Hematocrit 28 % (35-47); Hemoglobin 8.9 g/dl (12.0-16.0); Mean Corpuscular HGB Conc 32 g/dl (31-36); Mean Corpuscular Hemoglobin 36 pg (27-31); Mean Corpuscular Volume 114 fL (80-97); Mean Platelet Volume 10.3 um3 (7.4-10.4); Platelet Count 585 10^3/ul (150-450); Red Blood Count 2.49 10^6/ul (4.00-5.40); Red Cell Distribution Width 23 % (10.5-15); White Blood Count 19.6 10^3/ul (3.5-10.8)
[2017-11-01 07:04] LABS: EGFR Non-African American 52.3 (>60)
[2017-11-01] MEDS: Vancomycin(*) 1,000 MG in NS 0.9% 250 ML* 250 ML IVPB SCH ×2 (07:51→19:45)
[2017-11-01] MEDS: Albuterol 2.5 MG/3 ML NEB.SOL* (0.083%) INH PRN (08:04)
[2017-11-01] MEDS: Tiotropium CAP.INH* CAP.INH/18 MCG (USE ORDER SET !) INH SCH (08:05)
[2017-11-01] MEDS: Mometasone/Formoter 200/5 MDI INH SCH ×2 (08:05→21:07)
[2017-11-01] MEDS: Magnesium Oxide TAB* 400 MG PO SCH (08:11)
[2017-11-01] MEDS: guaiFENesin ER TAB 600 MG PO SCH ×2 (08:11→19:53)
[2017-11-01] MEDS: FLUoxetine CAP* 20 MG PO SCH (08:11)
[2017-11-01] MEDS: Cholecalciferol TAB* 1000 UNITS PO SCH (08:11)
[2017-11-01] MEDS: Cetirizine* 10 MG TAB PO SCH (08:12)
[2017-11-01] MEDS: Rivaroxaban TAB(*) 20 MG TAB PO SCH (08:12)
[2017-11-01] MEDS: predniSONE TAB* 10 MG PO SCH (08:12)
[2017-11-01] MEDS: Atenolol TAB* 25 MG PO SCH (08:12)
[2017-11-01] MEDS: Multivitamins/Minerals TAB PO SCH (08:12)
[2017-11-01] MEDS: Lisinopril TAB* 10 MG PO SCH (08:12)
[2017-11-01] MEDS: Cyanocobalamin TAB* 500 MCG PO SCH (08:13)
[2017-11-01] MEDS: Fluticasone NASAL SPRAY 50MCG* 16 gm SPRAY BTL BOTH NARES SCH (08:25)
[2017-11-01] MEDS: Albuterol/Ipratropium NEB.SOL* Albuterol 2.5 MG/Ipratropium 0.5 MG 3 ML INH PRN ×3 (16:20→22:51)
--- NOTE | 2017-11-01 16:22 | PN ---
Progress Note - Progress Note Date of Service: 11/01/17 - Pulm f/u note Note: Pt seen and examined at bedside. Pt reprots that SOB has worsened since yesterday. Has been needing O2 supplementation at 4.5 L/min. Reports dry cough. Denies chest pain, family at bedside. Active Medications Generic Name Dose Route Start Last Admin Trade Name Freq PRN Reason Stop Dose Admin Acetaminophen 650 mg 10/22/17 21:18 10/26/17 02:30 Tylenol Tab* PO 650 mg Q6H PRN Administration FEVER/PAIN Albuterol/Ipratropium 1 neb 11/01/17 16:06 Duoneb (Albuterol 2.5 Mg/Ipratropium 0.5 Mg) INH Q6H PRN SOB/WHEEZING Atenolol 25 mg 10/23/17 09:00 11/01/17 08:12 Tenormin Tab* PO 25 mg DAILY SONJA Administration Atorvastatin Calcium 10 mg 10/23/17 21:00 10/31/17 22:18 Lipitor* PO 10 mg BEDTIME SONJA Administration Benzonatate 100 mg 10/22/17 21:18 10/31/17 22:29 Tessalon Cap* PO 100 mg BID PRN Administration COUGH Cetirizine HCl 10 mg 10/23/17 09:00 11/01/17 08:12 Zyrtec* PO 10 mg DAILY SONJA Administration Protocol Cholecalciferol 1,000 units 10/23/17 09:00 11/01/17 08:11 Vitamin D Tab* PO 1,000 units DAILY SONJA Administration Clotrimazole 10 mg 10/22/17 22:00 11/01/17 13:04 Mycelex Michael* PO 10 mg FIVE TIMES DAILY SONJA Administration Cyanocobalamin 1,000 mcg 10/24/17 09:00 11/01/17 08:13 Vitamin B12 Tab* PO 1,000 mcg EVERY OTHER DAY SONJA Administration Device 1 each 10/25/17 12:00 Tiotropium Inhaler Device* INH .USE w/ SPIRIVA CAPS SONJA Docusate Sodium 100 mg 10/22/17 21:26 Colace Cap* PO BID PRN CONSTIPATION Fluoxetine HCl 60 mg 10/31/17 09:00 11/01/17 08:11 Prozac Cap* PO 60 mg DAILY SONAJ Administration Fluticasone Propionate 2 spray 10/23/17 09:00 11/01/17 08:25 Flonase Nasal [place] 50mcg* BOTH NARES 2 spray DAILY SONJA Administration Furosemide 20 mg 10/31/17 09:00 10/31/17 09:07 Lasix Tab* PO 20 mg MOWEFR SONJA Administration Guaifenesin 1,200 mg 10/23/17 09:00 11/01/17 08:11 Mucinex* PO 1,200 mg BID SONJA Administration Hydralazine HCl 5 mg 10/28/17 12:48 10/28/17 13:20 Apresoline Iv* IV SLOW PU 5 mg Q6H PRN Administration BLOOD PRESSURE Piperacillin Sod/Tazobactam 100 mls @ 25 mls/hr 10/31/17 22:00 11/01/17 13:09 Sod 3.375 gm/ Sodium Chloride IVPB 25 mls/hr Q8H SONJA Administration Vancomycin HCl 1,000 mg/ 250 mls @ 166.667 mls/hr 11/01/17 08:00 11/01/17 07: 51 Sodium Chloride IVPB 166.667 mls/hr Q12H SONJA Administration Levothyroxine Sodium 112 mcg 10/23/17 06:00 11/01/17 05:52 Synthroid Tab* PO 112 mcg 0600 SONJA Administration Lisinopril 40 mg 10/23/17 09:00 11/01/17 08:12 Prinivil Tab* PO 40 mg DAILY SONJA Administration Loperamide HCl 2 mg 10/22/17 21:26 Imodium Cap* PO TID PRN DIARRHEA Lorazepam 0.5 mg 10/30/17 15:18 11/01/17 05:52 Ativan Tab(*) PO 0.5 mg Q8H PRN Administration ANXIETY Magnesium Oxide 400 mg 10/23/17 09:00 11/01/17 08:11 Magox 400 Tab* PO 400 mg DAILY SONJA Administration Mometasone Furoate/Formoterol Fumar 2 puff 10/23/17 09:00 11/01/17 08:05 Dulera 200/5 Mdi* INH 2 puff BID SONJA Administration Protocol Montelukast Sodium 10 mg 10/23/17 21:00 10/31/17 22:18 Singulair Tab* PO 10 mg BEDTIME SONJA Administration Multivitamins/Minerals 1 tab 10/23/17 09:00 11/01/17 08:12 Theragran/Minerals Tab* PO 1 tab DAILY SONJA Administration Omeprazole 20 mg 10/23/17 07:30 11/01/17 05:52 Prilosec Cap* PO 20 mg 0730 SONJA Administration Ondansetron HCl 4 mg 10/22/17 21:18 Zofran 40 Mg Vial* IV Q6H PRN NAUSEA Pharmacy Consult 1 note 10/31/17 18:00 Vancomycin Per Pharmacy* FOLLOW UP .VANC PER PHARMACY [facility] Pharmacy Consult 1 note 10/31/17 18:00 Zosyn Per Pharmacy* FOLLOW UP .ZOSYN PER PHARMACY [facility] Pharmacy Profile Note 1 note 11/02/17 07:30 Vancomycin Trough Check FOLLOW UP 11/02/17 07:31 ONCE ONE Prednisone 30 mg 10/30/17 09:00 11/01/17 08:12 Deltasone Tab* PO 30 mg DAILY SONJA Administration Rivaroxaban 20 mg 10/23/17 09:00 11/01/17 08:12 Xarelto(*) PO 20 mg DAILY SONJA Administration Tiotropium Agency 1 cap 10/26/17 09:00 11/01/17 08:05 Spiriva Cap.Inh* INH 1 cap.inh DAILY SONJA Administration Vital Signs Temp Pulse Resp BP Pulse Ox 97.7 F 78 24 91/42 95 11/01/17 11:33 11/01/17 11:33 11/01/17 11:33 11/01/17 11:33 11/01/17 11:33 O/E: Pt in NAD HEENT: PERRLA, no JVD Lungs: Diminished air entry at bases, crackles at bases, scaterred wheeze + CVS: S1, S2+, regular Abd: Soft, BS+ Ext: Normal ROM Skin: No rash Neuro: No focal deficits, alert, awake Laboratory Results - last 24 hr 10/30/17 11/01/17 11/01/17 10:42 06:23 06:23 WBC 19.6 H RBC 2.49 L Hgb 8.9 L Hct 28 L MCV 114 H MCH 36 H MCHC 32 RDW 23 H Plt Count 585 H D MPV 10.3 Sodium 139 139 Potassium 3.7 3.8 Chloride 98 L 103 Carbon Dioxide 33 H 30 Anion Gap 8 6 BUN 11 11 Creatinine 0.94 1.02 H Est GFR ( Amer) 69.5 63.3 Est GFR (Non-Af Amer) 57.4 52.3 BUN/Creatinine Ratio 11.7 10.8 Glucose 125 H 84 Calcium 9.2 8.4 L Magnesium 1.8 L 2.4 C-Reactive Protein 15.[address] chest: Was personally reviewed, air space opacity in RML along with bronchiectasis and mucus plugging in lower lobes L>R I/R: 77 yo F who has a h/o COPD, chronic hypoxic respiratory failure, afib, HTN , HLD, and chronic leukocytosis and thrombocytopenia who presented to the ER with c/o worsening SOB being treated for acute COPD exacerbation, also found to have worsening hypoxia, anemia. 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
--- NOTE | 2017-11-01 18:02 | PN ---
Subjective Date of Service: 11/01/17 Interval History: Seen with son episode of SOB and respiratory failure this AM that resolved without intervention +cough feels ativan is very helpful Family History: Unchanged from Admission Social History: Unchanged from Admission Past Medical History: Unchanged from Admission Objective Active Medications: Acetaminophen (Tylenol Tab*) 650 mg PO Q6H PRN PRN Reason: FEVER/PAIN Last Admin: 10/26/17 02:30 Dose: 650 mg Albuterol/Ipratropium (Duoneb (Albuterol 2.5 Mg/Ipratropium 0.5 Mg)) 1 neb INH Q6H PRN PRN Reason: SOB/WHEEZING Atenolol (Tenormin Tab*) 25 mg PO DAILY [facility] Last Admin: 11/01/17 08:12 Dose: 25 mg Atorvastatin Calcium (Lipitor*) 10 mg PO BEDTIME SONJA Last Admin: 10/31/17 22:18 Dose: 10 mg Benzonatate (Tessalon Cap*) 100 mg PO BID PRN PRN Reason: COUGH Last Admin: 10/31/17 22:29 Dose: 100 mg Cetirizine HCl (Zyrtec*) 10 mg PO DAILY [facility]; Protocol Last Admin: 11/01/17 08:12 Dose: 10 mg Cholecalciferol (Vitamin D Tab*) 1,000 units PO DAILY [facility] Last Admin: 11/01/17 08:11 Dose: 1,000 units Clotrimazole (Mycelex Michael*) 10 mg PO FIVE TIMES DAILY [facility] Last Admin: 11/01/17 17:55 Dose: 10 mg Cyanocobalamin (Vitamin B12 Tab*) 1,000 mcg PO EVERY OTHER DAY [facility] Last Admin: 11/01/17 08:13 Dose: 1,000 mcg Device (Tiotropium Inhaler Device*) 1 each INH .USE w/ SPIRIVA CAPS [facility] Docusate Sodium (Colace Cap*) 100 mg PO BID PRN PRN Reason: CONSTIPATION Fluoxetine HCl (Prozac Cap*) 60 mg PO DAILY [facility] Last Admin: 11/01/17 08:11 Dose: 60 mg Fluticasone Propionate (Flonase Nasal [place] 50mcg*) 2 spray BOTH NARES DAILY [facility] Last Admin: 11/01/17 08:25 Dose: 2 spray Furosemide (Lasix Tab*) 20 mg PO MOWEFR [facility] Last Admin: 10/31/17 09:07 Dose: 20 mg Guaifenesin (Mucinex*) 1,200 mg PO BID [facility] Last Admin: 11/01/17 08:11 Dose: 1,200 mg Hydralazine HCl (Apresoline Iv*) 5 mg IV SLOW PU Q6H PRN PRN Reason: BLOOD PRESSURE Last Admin: 10/28/17 13:20 Dose: 5 mg Piperacillin Sod/Tazobactam (Sod 3.375 gm/ Sodium Chloride) 100 mls @ 25 mls/ hr IVPB Q8H SONJA Last Admin: 11/01/17 13:09 Dose: 25 mls/hr Vancomycin HCl 1,000 mg/ (Sodium Chloride) 250 mls @ 166.667 mls/hr IVPB Q12H [facility] Last Admin: 11/01/17 07:51 Dose: 166.667 mls/hr Levothyroxine Sodium (Synthroid Tab*) 112 mcg PO 0600 [facility] Last Admin: 11/01/17 05:52 Dose: 112 mcg Lisinopril (Prinivil Tab*) 40 mg PO DAILY [facility] Last Admin: 11/01/17 08:12 Dose: 40 mg Loperamide HCl (Imodium Cap*) 2 mg PO TID PRN PRN Reason: DIARRHEA Lorazepam (Ativan Tab(*)) 0.5 mg PO Q8H PRN PRN Reason: ANXIETY Last Admin: 11/01/17 05:52 Dose: 0.5 mg Magnesium Oxide (Magox 400 Tab*) 400 mg PO DAILY [facility] Last Admin: 11/01/17 08:11 Dose: 400 mg Mometasone Furoate/Formoterol Fumar (Dulera 200/5 Mdi*) 2 puff INH BID [facility]; Protocol Last Admin: 11/01/17 08:05 Dose: 2 puff Montelukast Sodium (Singulair Tab*) 10 mg PO BEDTIME [facility] Last Admin: 10/31/17 22:18 Dose: 10 mg Multivitamins/Minerals (Theragran/Minerals Tab*) 1 tab PO DAILY [facility] Last Admin: 11/01/17 08:12 Dose: 1 tab Omeprazole (Prilosec Cap*) 20 mg PO 0730 [facility] Last Admin: 11/01/17 05:52 Dose: 20 mg Ondansetron HCl (Zofran 40 Mg Vial*) 4 mg IV Q6H PRN PRN Reason: NAUSEA Pharmacy Consult (Vancomycin Per Pharmacy*) 1 note FOLLOW UP .VANC PER PHARMACY [facility] Pharmacy Consult (Zosyn Per Pharmacy*) 1 note FOLLOW UP .ZOSYN PER PHARMACY [facility] Pharmacy Profile Note (Vancomycin Trough Check) 1 note FOLLOW UP ONCE ONE Stop: 11/02/17 07:31 Prednisone (Deltasone Tab*) 30 mg PO DAILY [facility] Last Admin: 11/01/17 08:12 Dose: 30 mg Rivaroxaban (Xarelto(*)) 20 mg PO DAILY [facility] Last Admin: 11/01/17 08:12 Dose: 20 mg Tiotropium Platinum (Spiriva Cap.Inh*) 1 cap INH DAILY [facility] Last Admin: 11/01/17 08:05 Dose: 1 cap.inh Vital Signs - 8 hr 11/01/17 11/01/17 11:33 15:35 Temperature 97.7 F 97.7 F Pulse Rate 78 72 Respiratory 24 19 Rate Blood Pressure 91/42 129/60 (mmHg) O2 Sat by Pulse 95 98 Oximetry Oxygen Devices in Use Now: Nasal Cannula Appearance: NAD Eyes: No Scleral Icterus, PERRLA Ears/Nose/Mouth/Throat: NL Teeth, Lips, Gums, Clear Oropharnyx Neck: NL Appearance and Movements; NL JVP, Trachea Midline Respiratory: Symmetrical Chest Expansion and Respiratory Effort, - - decreased on right, dull to percussion Cardiovascular: RRR Abdominal: NL Sounds; No Tenderness; No Distention, No Hepatosplenomegaly Skin: No Rash or Ulcers Neurological: Alert and Oriented x 3 Result Diagrams: 11/01/17 06:23 11/01/17 06:23 Microbiology and Other Data: Microbiology 10/22/17 17:42 Aerobic Blood Culture - Preliminary Blood Venous No Growth Day 2 Anaerobic Blood Culture - Preliminary No Growth Day 2 10/22/17 17:42 Aerobic Blood Culture - Preliminary Blood Venous No Growth Day 2 Anaerobic Blood Culture - Preliminary No Growth Day 2 Assess/Plan/Problems-Billing ASSESSMENT: Ms Keita is a 77 yo F who has a h/o COPD and chronic hypoxic respiratory failure, afib, HTN, HLD, and chronic leukocytosis and thrombocytopenia who presented to the ER with c/o severe SOB and was admitted for a COPD exacerbation with stay c/b suspected hospital acquired PNA - Patient Problems (1) Respiratory failure Comment: was improving from COPD exacerbation but then worsening again CT with consolidation appreciate pulmonology c/s. Must think about other diagnoses ag with history of hydrea c/w vanco/zosyn for HAP seen on CT (2) COPD exacerbation Comment: - Completed 5 day course of ceftriaxone and doxy - Continue prednisone taper (working towards baseline dose of 5mg) (3) Anemia Comment: - Received 1 unit PRBC 10/25 for progressively dropping H/H -appreciate heme consult -hydrea on hold until after discharge (4) Anxiety Comment: Appreciate Psych consult fluoxetine increased from 40 to 60mg lorazaepam PRN added can consider buspar in addition. I have not added today with better control seen from above interventions (5) Atrial fibrillation Comment: -currently NSR - Continue xarelto and atenolol (6) HTN (hypertension) Comment: - - Continue atenolol, lisinopril, lasix (7) DVT prophylaxis Comment: - Xarelto Status and Disposition: Inpatient. Discharge to home when medically stable
[2017-11-01] MEDS: Montelukast Sodium TAB* 10 MG PO SCH (19:53)
[2017-11-01] MEDS: Atorvastatin* 10 MG TAB PO SCH (19:53)
[2017-11-02] MEDS: ZOSYN 3.375 GM Q8H per EXTENDED INFUSION IVPB SCH ×6 (05:01→21:46)
[2017-11-02] MEDS: Levothyroxine TAB* 112 MCG TAB PO SCH (05:07)
[2017-11-02] MEDS: Clotrimazole TROCHE* 10 MG TROCHE PO SCH ×5 (05:07→21:46)
[2017-11-02 06:42] LABS: Hematocrit 30 % (35-47); Hemoglobin 9.5 g/dl (12.0-16.0); Mean Corpuscular HGB Conc 31 g/dl (31-36); Mean Corpuscular Hemoglobin 37 pg (27-31); Mean Corpuscular Volume 116 fL (80-97); Mean Platelet Volume 9.8 um3 (7.4-10.4); Platelet Count 777 10^3/ul (150-450); Red Blood Count 2.61 10^6/ul (4.00-5.40); Red Cell Distribution Width 24 % (10.5-15); White Blood Count 28.1 10^3/ul (3.5-10.8)
[2017-11-02 07:05] LABS: EGFR Non-African American 51.7 (>60)
[2017-11-02] MEDS ORDERED: Vancomycin Trough Check NOTE FOLLOW UP ONE (07:30)
[2017-11-02] MEDS: Tiotropium CAP.INH* CAP.INH/18 MCG (USE ORDER SET !) INH SCH (07:58)
[2017-11-02] MEDS: Albuterol/Ipratropium NEB.SOL* Albuterol 2.5 MG/Ipratropium 0.5 MG 3 ML INH PRN ×2 (07:58→15:12)
[2017-11-02] MEDS: Mometasone/Formoter 200/5 MDI INH SCH ×2 (07:59→19:32)
[2017-11-02 08:20] LABS: Vancomycin Trough 19.3 mcg/mL
[2017-11-02] MEDS: Cholecalciferol TAB* 1000 UNITS PO SCH (08:40)
[2017-11-02] MEDS: Cetirizine* 10 MG TAB PO SCH (08:40)
[2017-11-02] MEDS: Rivaroxaban TAB(*) 20 MG TAB PO SCH (08:40)
[2017-11-02] MEDS: Lisinopril TAB* 10 MG PO SCH (08:40)
[2017-11-02] MEDS: Omeprazole CAP* 20 MG PO SCH (08:41)
[2017-11-02] MEDS: Multivitamins/Minerals TAB PO SCH (08:41)
[2017-11-02] MEDS: guaiFENesin ER TAB 600 MG PO SCH ×2 (08:42→20:19)
[2017-11-02] MEDS: Atenolol TAB* 25 MG PO SCH (08:42)
[2017-11-02] MEDS: Magnesium Oxide TAB* 400 MG PO SCH (08:42)
[2017-11-02] MEDS: FLUoxetine CAP* 20 MG PO SCH (08:42)
[2017-11-02] MEDS: predniSONE TAB* 10 MG PO SCH (08:42)
[2017-11-02] MEDS: Fluticasone NASAL SPRAY 50MCG* 16 gm SPRAY BTL BOTH NARES SCH (08:52)
[2017-11-02] MEDS: Furosemide TAB* 20 MG PO SCH (08:52)
[2017-11-02] MEDS: Vancomycin(*) 1,000 MG in NS 0.9% 250 ML* 250 ML IVPB SCH (08:53)
--- NOTE | 2017-11-02 11:17 | PN ---
Progress Note - Progress Note Date of Service: 11/02/17 SOAP: Subjective: [Noted rising platelets since HU discontinued, 777,000 on labs today. Patient reports some improvement in respiratory symptoms. Hgb stable, no bleeding events.] Objective: [ Laboratory Results - last 24 hr 11/02/17 11/02/17 06:28 06:28 WBC 28.1 H RBC 2.61 L Hgb 9.5 L Hct 30 L MCV 116 H MCH 37 H MCHC 31 RDW 24 H Plt Count 777 H D MPV 9.8 Sodium 140 Potassium 3.8 Chloride 106 Carbon Dioxide 27 Anion Gap 7 BUN 10 Creatinine 1.03 H Est GFR ( Amer) 62.5 Est GFR (Non-Af Amer) 51.7 BUN/Creatinine Ratio 9.7 Glucose 91 Calcium 8.1 L Vancomycin Trough 19.3 Acetaminophen (Tylenol Tab*) 650 mg PO Q6H PRN PRN Reason: FEVER/PAIN Last Admin: 10/26/17 02:30 Dose: 650 mg Albuterol/Ipratropium (Duoneb (Albuterol 2.5 Mg/Ipratropium 0.5 Mg)) 1 neb INH Q6H PRN PRN Reason: SOB/WHEEZING Last Admin: 11/02/17 07:58 Dose: 1 neb Atenolol (Tenormin Tab*) 25 mg PO DAILY [facility] Last Admin: 11/02/17 08:42 Dose: 25 mg Atorvastatin Calcium (Lipitor*) 10 mg PO BEDTIME SONJA Last Admin: 11/01/17 19:53 Dose: 10 mg Benzonatate (Tessalon Cap*) 100 mg PO BID PRN PRN Reason: COUGH Last Admin: 10/31/17 22:29 Dose: 100 mg Cetirizine HCl (Zyrtec*) 10 mg PO DAILY [facility]; Protocol Last Admin: 11/02/17 08:40 Dose: 10 mg Cholecalciferol (Vitamin D Tab*) 1,000 units PO DAILY [facility] Last Admin: 11/02/17 08:40 Dose: 1,000 units Clotrimazole (Mycelex Michael*) 10 mg PO FIVE TIMES DAILY [facility] Last Admin: 11/02/17 08:48 Dose: 10 mg Cyanocobalamin (Vitamin B12 Tab*) 1,000 mcg PO EVERY OTHER DAY [facility] Last Admin: 11/01/17 08:13 Dose: 1,000 mcg Device (Tiotropium Inhaler Device*) 1 each INH .USE w/ SPIRIVA CAPS [facility] Docusate Sodium (Colace Cap*) 100 mg PO BID PRN PRN Reason: CONSTIPATION Fluoxetine HCl (Prozac Cap*) 60 mg PO DAILY [facility] Last Admin: 11/02/17 08:42 Dose: 60 mg Fluticasone Propionate (Flonase Nasal [place] 50mcg*) 2 spray BOTH NARES DAILY [facility] Last Admin: 11/02/17 08:52 Dose: 2 spray Furosemide (Lasix Tab*) 20 mg PO MOWEFR [facility] Last Admin: 11/02/17 08:52 Dose: 20 mg Guaifenesin (Mucinex*) 1,200 mg PO BID [facility] Last Admin: 11/02/17 08:42 Dose: 1,200 mg Hydralazine HCl (Apresoline Iv*) 5 mg IV SLOW PU Q6H PRN PRN Reason: BLOOD PRESSURE Last Admin: 10/28/17 13:20 Dose: 5 mg Hydroxyurea (Hydrea Cap*) 500 mg PO DAILY [facility] Piperacillin Sod/Tazobactam (Sod 3.375 gm/ Sodium Chloride) 100 mls @ 25 mls/ hr IVPB Q8H [facility] Last Admin: 11/02/17 05:01 Dose: 25 mls/hr Vancomycin HCl 1,000 mg/ (Sodium Chloride) 250 mls @ 166.667 mls/hr IVPB Q12H [facility] Stop: 11/02/17 12:00 Last Admin: 11/02/17 08:53 Dose: 166.667 mls/hr Vancomycin HCl 750 mg/ Sodium (Chloride) 250 mls @ 166.667 mls/hr IVPB Q12H [facility] Levothyroxine Sodium (Synthroid Tab*) 112 mcg PO 0600 [facility] Last Admin: 11/02/17 05:07 Dose: 112 mcg Lisinopril (Prinivil Tab*) 40 mg PO DAILY [facility] Last Admin: 11/02/17 08:40 Dose: 40 mg Loperamide HCl (Imodium Cap*) 2 mg PO TID PRN PRN Reason: DIARRHEA Lorazepam (Ativan Tab(*)) 0.5 mg PO Q8H PRN PRN Reason: ANXIETY Last Admin: 11/01/17 22:13 Dose: 0.5 mg Magnesium Oxide (Magox 400 Tab*) 400 mg PO DAILY [facility] Last Admin: 11/02/17 08:42 Dose: 400 mg Mometasone Furoate/Formoterol Fumar (Dulera 200/5 Mdi*) 2 puff INH BID [facility]; Protocol Last Admin: 11/02/17 07:59 Dose: 2 puff Montelukast Sodium (Singulair Tab*) 10 mg PO BEDTIME [facility] Last Admin: 11/01/17 19:53 Dose: 10 mg Multivitamins/Minerals (Theragran/Minerals Tab*) 1 tab PO DAILY [facility] Last Admin: 11/02/17 08:41 Dose: 1 tab Omeprazole (Prilosec Cap*) 20 mg PO 0730 [facility] Last Admin: 11/02/17 08:41 Dose: 20 mg Ondansetron HCl (Zofran 40 Mg Vial*) 4 mg IV Q6H PRN PRN Reason: NAUSEA Pharmacy Consult (Vancomycin Per Pharmacy*) 1 note FOLLOW UP .VANC PER PHARMACY [facility] Pharmacy Consult (Zosyn Per Pharmacy*) 1 note FOLLOW UP .ZOSYN PER PHARMACY [facility] Pharmacy Profile Note (Vancomycin Trough Check) 1 note FOLLOW UP 0530 ONE Stop: 11/04/17 05:31 Prednisone (Deltasone Tab*) 30 mg PO DAILY [facility] Last Admin: 11/02/17 08:42 Dose: 30 mg Rivaroxaban (Xarelto(*)) 20 mg PO DAILY [facility] Last Admin: 11/02/17 08:40 Dose: 20 mg Tiotropium [place] (Spiriva Cap.Inh*) 1 cap INH DAILY [facility] Last Admin: 11/02/17 07:58 Dose: 1 cap.inh Vital Signs: Temp Pulse Resp BP Pulse Ox 98.7 F 100 22 135/57 98 11/02/17 07:52 11/02/17 08:09 11/02/17 08:09 11/02/17 07:52 11/02/17 08:09 Exam: Gen: Pleasant 77 yo female sitting up in a chair in NAD with NC in place HEENT: mildly dry MM CV: RRR, no m/r/g Resp: decreased BS, no w/c/r Ext: no edema Assessment: 77 yo female with CALR positive ET on hydrea now hospitalized with a COPD exacerbation. Worsening anemia noted with increase of HU from 1000mg to 1500mg. Dose was initially decreased to 1000 mg and then discontinued all together. Platelets have risen since stopping HU and measured at 777,000 this am. Plan: 1. Essential thrombocytosis - recommend resuming HU at 500 mg daily - follow up with hematology following discharge - continue daily CBC 2. Anemia - Hgb stable since transfusion - no bleeding events 3. COPD exacerbation - management per hospitalist group] []
[2017-11-02] MEDS: HydroxyUREA CAP* 500 MG CAP PO SCH (13:14)
--- NOTE | 2017-11-02 16:34 | PN ---
Subjective Date of Service: 11/02/17 Interval History: 1 episode of BM that was reported by RN to be red and may have had blood Feels breathing is slightly improved 1 episode of feeling more anxious overnight Family History: Unchanged from Admission Social History: Unchanged from Admission Past Medical History: Unchanged from Admission Objective Active Medications: Acetaminophen (Tylenol Tab*) 650 mg PO Q6H PRN PRN Reason: FEVER/PAIN Last Admin: 10/26/17 02:30 Dose: 650 mg Albuterol/Ipratropium (Duoneb (Albuterol 2.5 Mg/Ipratropium 0.5 Mg)) 1 neb INH Q6H PRN PRN Reason: SOB/WHEEZING Last Admin: 11/02/17 15:12 Dose: 1 neb Atenolol (Tenormin Tab*) 25 mg PO DAILY [facility] Last Admin: 11/02/17 08:42 Dose: 25 mg Atorvastatin Calcium (Lipitor*) 10 mg PO BEDTIME [facility] Last Admin: 11/01/17 19:53 Dose: 10 mg Benzonatate (Tessalon Cap*) 100 mg PO BID PRN PRN Reason: COUGH Last Admin: 10/31/17 22:29 Dose: 100 mg Cetirizine HCl (Zyrtec*) 10 mg PO DAILY [facility]; Protocol Last Admin: 11/02/17 08:40 Dose: 10 mg Cholecalciferol (Vitamin D Tab*) 1,000 units PO DAILY [facility] Last Admin: 11/02/17 08:40 Dose: 1,000 units Clotrimazole (Mycelex Michael*) 10 mg PO FIVE TIMES DAILY [facility] Last Admin: 11/02/17 16:08 Dose: 10 mg Cyanocobalamin (Vitamin B12 Tab*) 1,000 mcg PO EVERY OTHER DAY [facility] Last Admin: 11/01/17 08:13 Dose: 1,000 mcg Device (Tiotropium Inhaler Device*) 1 each INH .USE w/ SPIRIVA CAPS [facility] Docusate Sodium (Colace Cap*) 100 mg PO BID PRN PRN Reason: CONSTIPATION Fluoxetine HCl (Prozac Cap*) 60 mg PO DAILY [facility] Last Admin: 11/02/17 08:42 Dose: 60 mg Fluticasone Propionate (Flonase Nasal [place] 50mcg*) 2 spray BOTH NARES DAILY [facility] Last Admin: 11/02/17 08:52 Dose: 2 spray Furosemide (Lasix Tab*) 20 mg PO MOWEFR [facility] Last Admin: 11/02/17 08:52 Dose: 20 mg Guaifenesin (Mucinex*) 1,200 mg PO BID [facility] Last Admin: 11/02/17 08:42 Dose: 1,200 mg Hydralazine HCl (Apresoline Iv*) 5 mg IV SLOW PU Q6H PRN PRN Reason: BLOOD PRESSURE Last Admin: 10/28/17 13:20 Dose: 5 mg Hydroxyurea (Hydrea Cap*) 500 mg PO DAILY [facility] Last Admin: 11/02/17 13:14 Dose: 500 mg Piperacillin Sod/Tazobactam (Sod 3.375 gm/ Sodium Chloride) 100 mls @ 25 mls/ hr IVPB Q8H [facility] Last Admin: 11/02/17 16:03 Dose: 25 mls/hr Vancomycin HCl 750 mg/ Sodium (Chloride) 250 mls @ 166.667 mls/hr IVPB Q12H [facility] Levothyroxine Sodium (Synthroid Tab*) 112 mcg PO 0600 [facility] Last Admin: 11/02/17 05:07 Dose: 112 mcg Lisinopril (Prinivil Tab*) 40 mg PO DAILY [facility] Last Admin: 11/02/17 08:40 Dose: 40 mg Loperamide HCl (Imodium Cap*) 2 mg PO TID PRN PRN Reason: DIARRHEA Lorazepam (Ativan Tab(*)) 0.5 mg PO Q8H PRN PRN Reason: ANXIETY Last Admin: 11/01/17 22:13 Dose: 0.5 mg Magnesium Oxide (Magox 400 Tab*) 400 mg PO DAILY [facility] Last Admin: 11/02/17 08:42 Dose: 400 mg Mometasone Furoate/Formoterol Fumar (Dulera 200/5 Mdi*) 2 puff INH BID [facility]; Protocol Last Admin: 11/02/17 07:59 Dose: 2 puff Montelukast Sodium (Singulair Tab*) 10 mg PO BEDTIME [facility] Last Admin: 11/01/17 19:53 Dose: 10 mg Multivitamins/Minerals (Theragran/Minerals Tab*) 1 tab PO DAILY [facility] Last Admin: 11/02/17 08:41 Dose: 1 tab Omeprazole (Prilosec Cap*) 20 mg PO 0730 [facility] Last Admin: 11/02/17 08:41 Dose: 20 mg Ondansetron HCl (Zofran 40 Mg Vial*) 4 mg IV Q6H PRN PRN Reason: NAUSEA Pharmacy Consult (Vancomycin Per Pharmacy*) 1 note FOLLOW UP .VANC PER PHARMACY [facility] Pharmacy Consult (Zosyn Per Pharmacy*) 1 note FOLLOW UP .ZOSYN PER PHARMACY [facility] Pharmacy Profile Note (Vancomycin Trough Check) 1 note FOLLOW UP 0530 ONE Stop: 11/04/17 05:31 Prednisone (Deltasone Tab*) 30 mg PO DAILY [facility] Last Admin: 11/02/17 08:42 Dose: 30 mg Rivaroxaban (Xarelto(*)) 20 mg PO DAILY [facility] Last Admin: 11/02/17 08:40 Dose: 20 mg Tiotropium [place] (Spiriva Cap.Inh*) 1 cap INH DAILY [facility] Last Admin: 11/02/17 07:58 Dose: 1 cap.inh Vital Signs - 8 hr 11/02/17 15:15 Pulse Rate 73 Respiratory 20 Rate O2 Sat by Pulse 95 Oximetry Oxygen Devices in Use Now: Nasal Cannula - 6L, High Flow Nasal Cannula Appearance: sitting in chair, talks in full sentences, NAD Eyes: No Scleral Icterus, PERRLA Ears/Nose/Mouth/Throat: Clear Oropharnyx, Mucous Membranes Moist Neck: NL Appearance and Movements; NL JVP, Trachea Midline Respiratory: Symmetrical Chest Expansion and Respiratory Effort, - - dull to percussion right base up 1/2 Cardiovascular: RRR Abdominal: NL Sounds; No Tenderness; No Distention, No Hepatosplenomegaly Lymphatic: No Cervical Adenopathy Extremities: No Edema Neurological: Alert and Oriented x 3 Result Diagrams: 11/02/17 06:28 11/02/17 06:28 Microbiology and Other Data: Microbiology 10/22/17 17:42 Aerobic Blood Culture - Preliminary Blood Venous No Growth Day 2 Anaerobic Blood Culture - Preliminary No Growth Day 2 10/22/17 17:42 Aerobic Blood Culture - Preliminary Blood Venous No Growth Day 2 Anaerobic Blood Culture - Preliminary No Growth Day 2 Assess/Plan/Problems-Billing ASSESSMENT: Ms Keita is a 77 yo F who has a h/o COPD and chronic hypoxic respiratory failure, afib, HTN, HLD, and chronic leukocytosis and thrombocytopenia who presented to the ER with c/o severe SOB and was admitted for a COPD exacerbation with stay c/b suspected hospital acquired PNA - Patient Problems (1) Respiratory failure Comment: was improving from COPD exacerbation but then worsening again CT found with consolidation appreciate pulmonology c/s. Must think about other diagnoses ag with history of hydrea ie BOOP but HAP likely especially with improvement on abx c/w vanco/zosyn for HAP seen on CT prednisone 30 mg and taper incentive spiromentry (2) COPD exacerbation Comment: - Completed 5 day course of ceftriaxone and doxy - Continue prednisone taper (working towards baseline dose of 5mg) (3) Anemia Comment: - Received 1 unit PRBC 10/25 for progressively dropping H/H -appreciate heme consult -restart hydrea 11/02 (4) Anxiety Comment: Appreciate Psych consult fluoxetine increased from 40 to 60mg lorazaepam PRN added can consider buspar- I have not added with better control seen from above interventions (5) Atrial fibrillation Comment: -currently NSR - Continue xarelto and atenolol (6) HTN (hypertension) Comment: - Continue atenolol, lisinopril, lasix (7) Essential thrombocythemia Current Visit: Yes Status: Acute Code(s): D47.3 - ESSENTIAL (HEMORRHAGIC) THROMBOCYTHEMIA SNOMED Code(s): 324724725 Comment: -hydrea restarted 11/02 (8) DVT prophylaxis Comment: - Xarelto Status and Disposition: Inpatient. Discharge to home when medically stable after HAP treatment
[2017-11-02] MEDS: Montelukast Sodium TAB* 10 MG PO SCH (20:19)
[2017-11-02] MEDS: Atorvastatin* 10 MG TAB PO SCH (20:19)
[2017-11-03] MEDS: ZOSYN 3.375 GM Q8H per EXTENDED INFUSION IVPB SCH ×6 (05:09→22:11)
[2017-11-03] MEDS: Levothyroxine TAB* 112 MCG TAB PO SCH (05:09)
[2017-11-03] MEDS: Clotrimazole TROCHE* 10 MG TROCHE PO SCH ×5 (06:26→22:32)
[2017-11-03 07:18] LABS: Hematocrit 28 % (35-47); Hemoglobin 8.5 g/dl (12.0-16.0); Mean Corpuscular HGB Conc 31 g/dl (31-36); Mean Corpuscular Hemoglobin 36 pg (27-31); Mean Corpuscular Volume 115 fL (80-97); Mean Platelet Volume 9.7 um3 (7.4-10.4); Platelet Count 867 10^3/ul (150-450); Red Cell Distribution Width 24 % (10.5-15); White Blood Count 23.7 10^3/ul (3.5-10.8)
[2017-11-03 07:25] LABS: EGFR Non-African American 58.9 (>60)
[2017-11-03] MEDS: Albuterol/Ipratropium NEB.SOL* Albuterol 2.5 MG/Ipratropium 0.5 MG 3 ML INH PRN ×2 (07:27→19:42)
[2017-11-03] MEDS: Tiotropium CAP.INH* CAP.INH/18 MCG (USE ORDER SET !) INH SCH (07:27)
[2017-11-03] MEDS: Mometasone/Formoter 200/5 MDI INH SCH ×2 (07:28→19:45)
[2017-11-03 07:44] LABS: ABS Basophils 0.1 10^3/ul (0-0.2); ABS Eosinophils 0 10^3/ul (0-0.6); ABS Lymphocytes 10.3 10^3/ul (1.0-4.8); ABS Monocytes 1.2 10^3/ul (0-0.8); ABS Nucleated RBC 0 10^3/ul; Eosinophil % 0.1 % (0-6); Lymphocyte % 43.4 % (25-47); Nucleated Red Blood Cells % 0.1
[2017-11-03] MEDS: Vancomycin(*) 750 MG in NS 0.9% 250 ML* 250 ML IVPB SCH ×2 (08:20→18:04)
[2017-11-03] MEDS: Omeprazole CAP* 20 MG PO SCH (08:22)
[2017-11-03] MEDS: predniSONE TAB* 10 MG PO SCH (08:22)
[2017-11-03] MEDS: Atenolol TAB* 25 MG PO SCH (08:22)
[2017-11-03] MEDS: Cyanocobalamin TAB* 500 MCG PO SCH (08:22)
[2017-11-03] MEDS: guaiFENesin ER TAB 600 MG PO SCH ×2 (08:22→20:05)
[2017-11-03] MEDS: HydroxyUREA CAP* 500 MG CAP PO SCH (08:22)
[2017-11-03] MEDS: Rivaroxaban TAB(*) 20 MG TAB PO SCH (08:23)
[2017-11-03] MEDS: Magnesium Oxide TAB* 400 MG PO SCH (08:23)
[2017-11-03] MEDS: Multivitamins/Minerals TAB PO SCH (08:23)
[2017-11-03] MEDS: FLUoxetine CAP* 20 MG PO SCH (08:23)
[2017-11-03] MEDS: Cholecalciferol TAB* 1000 UNITS PO SCH (08:23)
[2017-11-03] MEDS: Lisinopril TAB* 10 MG PO SCH (08:23)
[2017-11-03] MEDS: Fluticasone NASAL SPRAY 50MCG* 16 gm SPRAY BTL BOTH NARES SCH (08:24)
[2017-11-03] MEDS: Cetirizine* 10 MG TAB PO SCH (08:24)
--- NOTE | 2017-11-03 14:43 | PN ---
Subjective Date of Service: 11/03/17 Interval History: Pt feels " a little better" today , still SOB and coughing up "phlegm" Family History: Unchanged from Admission Social History: Unchanged from Admission Past Medical History: Unchanged from Admission Objective Active Medications: Acetaminophen (Tylenol Tab*) 650 mg PO Q6H PRN PRN Reason: FEVER/PAIN Last Admin: 10/26/17 02:30 Dose: 650 mg Albuterol/Ipratropium (Duoneb (Albuterol 2.5 Mg/Ipratropium 0.5 Mg)) 1 neb INH Q6H PRN PRN Reason: SOB/WHEEZING Last Admin: 11/03/17 07:27 Dose: 1 neb Atenolol (Tenormin Tab*) 25 mg PO DAILY [facility] Last Admin: 11/03/17 08:22 Dose: 25 mg Atorvastatin Calcium (Lipitor*) 10 mg PO BEDTIME [facility] Last Admin: 11/02/17 20:19 Dose: 10 mg Benzonatate (Tessalon Cap*) 100 mg PO BID PRN PRN Reason: COUGH Last Admin: 10/31/17 22:29 Dose: 100 mg Cetirizine HCl (Zyrtec*) 10 mg PO DAILY [facility]; Protocol Last Admin: 11/03/17 08:24 Dose: 10 mg Cholecalciferol (Vitamin D Tab*) 1,000 units PO DAILY [facility] Last Admin: 11/03/17 08:23 Dose: 1,000 units Clotrimazole (Mycelex Michael*) 10 mg PO FIVE TIMES DAILY [facility] Last Admin: 11/03/17 14:04 Dose: 10 mg Cyanocobalamin (Vitamin B12 Tab*) 1,000 mcg PO EVERY OTHER DAY [facility] Last Admin: 11/03/17 08:22 Dose: 1,000 mcg Device (Tiotropium Inhaler Device*) 1 each INH .USE w/ SPIRIVA CAPS [facility] Docusate Sodium (Colace Cap*) 100 mg PO BID PRN PRN Reason: CONSTIPATION Fluoxetine HCl (Prozac Cap*) 60 mg PO DAILY [facility] Last Admin: 11/03/17 08:23 Dose: 60 mg Fluticasone Propionate (Flonase Nasal [place] 50mcg*) 2 spray BOTH NARES DAILY [facility] Last Admin: 11/03/17 08:24 Dose: 2 spray Furosemide (Lasix Tab*) 20 mg PO MOWEFR [facility] Last Admin: 11/02/17 08:52 Dose: 20 mg Guaifenesin (Mucinex*) 1,200 mg PO BID [facility] Last Admin: 11/03/17 08:22 Dose: 1,200 mg Hydralazine HCl (Apresoline Iv*) 5 mg IV SLOW PU Q6H PRN PRN Reason: BLOOD PRESSURE Last Admin: 10/28/17 13:20 Dose: 5 mg Hydroxyurea (Hydrea Cap*) 500 mg PO DAILY [facility] Last Admin: 11/03/17 08:22 Dose: 500 mg Piperacillin Sod/Tazobactam (Sod 3.375 gm/ Sodium Chloride) 100 mls @ 25 mls/ hr IVPB Q8H [facility] Last Admin: 11/03/17 14:04 Dose: 25 mls/hr Vancomycin HCl 750 mg/ Sodium (Chloride) 250 mls @ 166.667 mls/hr IVPB Q12H [facility] Last Admin: 11/03/17 08:20 Dose: 166.667 mls/hr Levothyroxine Sodium (Synthroid Tab*) 112 mcg PO 0600 [facility] Last Admin: 11/03/17 05:09 Dose: 112 mcg Lisinopril (Prinivil Tab*) 40 mg PO DAILY [facility] Last Admin: 11/03/17 08:23 Dose: 40 mg Loperamide HCl (Imodium Cap*) 2 mg PO TID PRN PRN Reason: DIARRHEA Lorazepam (Ativan Tab(*)) 0.5 mg PO Q8H PRN PRN Reason: ANXIETY Last Admin: 11/01/17 22:13 Dose: 0.5 mg Magnesium Oxide (Magox 400 Tab*) 400 mg PO DAILY [facility] Last Admin: 11/03/17 08:23 Dose: 400 mg Mometasone Furoate/Formoterol Fumar (Dulera 200/5 Mdi*) 2 puff INH BID [facility]; Protocol Last Admin: 11/03/17 07:28 Dose: 2 puff Montelukast Sodium (Singulair Tab*) 10 mg PO BEDTIME [facility] Last Admin: 11/02/17 20:19 Dose: 10 mg Multivitamins/Minerals (Theragran/Minerals Tab*) 1 tab PO DAILY [facility] Last Admin: 11/03/17 08:23 Dose: 1 tab Omeprazole (Prilosec Cap*) 20 mg PO 0730 [facility] Last Admin: 11/03/17 08:22 Dose: 20 mg Ondansetron HCl (Zofran 40 Mg Vial*) 4 mg IV Q6H PRN PRN Reason: NAUSEA Pharmacy Consult (Vancomycin Per Pharmacy*) 1 note FOLLOW UP .VANC PER PHARMACY [facility] Pharmacy Consult (Zosyn Per Pharmacy*) 1 note FOLLOW UP .ZOSYN PER PHARMACY [facility] Pharmacy Profile Note (Vancomycin Trough Check) 1 note FOLLOW UP 529 ONE Stop: 11/04/17 05:31 Prednisone (Deltasone Tab*) 30 mg PO DAILY [facility] Last Admin: 11/03/17 08:22 Dose: 30 mg Rivaroxaban (Xarelto(*)) 20 mg PO DAILY [facility] Last Admin: 11/03/17 08:23 Dose: 20 mg Tiotropium [place] (Spiriva Cap.Inh*) 1 cap INH DAILY [facility] Last Admin: 11/03/17 07:27 Dose: 1 cap.inh Vital Signs - 8 hr 11/03/17 11/03/17 11/03/17 07:30 08:00 08:25 Temperature 97.5 F Pulse Rate 92 86 Respiratory 18 22 20 Rate Blood Pressure 136/64 (mmHg) O2 Sat by Pulse 93 92 92 Oximetry Oxygen Devices in Use Now: High Flow Nasal Cannula Appearance: 77 yo F in nAD, aAOx3 Eyes: No Scleral Icterus, PERRLA Ears/Nose/Mouth/Throat: NL Teeth, Lips, Gums, Mucous Membranes Moist Neck: NL Appearance and Movements; NL JVP, Trachea Midline Respiratory: Symmetrical Chest Expansion and Respiratory Effort, - - LLL wheezes and rhonchi, decreased breath sounds R lung Cardiovascular: NL Sounds; No Murmurs; No JVD, RRR Abdominal: NL Sounds; No Tenderness; No Distention, No Hepatosplenomegaly Lymphatic: No Cervical Adenopathy Extremities: No Edema, No Clubbing, Cyanosis Skin: No Rash or Ulcers, No Nodules or Sclerosis Neurological: Alert and Oriented x 3, NL Muscle Strength and Tone Result Diagrams: 11/03/17 06:58 11/03/17 06:58 Microbiology and Other Data: Microbiology 10/22/17 17:42 Aerobic Blood Culture - Preliminary Blood Venous No Growth Day 2 Anaerobic Blood Culture - Preliminary No Growth Day 2 10/22/17 17:42 Aerobic Blood Culture - Preliminary Blood Venous No Growth Day 2 Anaerobic Blood Culture - Preliminary No Growth Day 2 Assess/Plan/Problems-Billing ASSESSMENT: Ms Keita is a 77 yo F who has a h/o COPD and chronic hypoxic respiratory failure, afib, HTN, HLD, and chronic leukocytosis and thrombocytopenia who presented to the ER with c/o severe SOB and was admitted for a COPD exacerbation with stay c/b suspected hospital acquired PNA - Patient Problems (1) Respiratory failure Comment: Acute on chronic hypoxemic reps failure( at home on 3 L 02) was improving from COPD exacerbation but then worsening again CT found with consolidation appreciate pulmonology c/s. c/w vanco/zosyn for HAP seen on CT prednisone 30 mg and taper incentive spiromentry (2) COPD exacerbation Comment: Marked leukocytosis likely due to steroids-clinically improving cont Prednisone 30 mg (3) Essential thrombocythemia Comment: -hydrea restarted 11/02 (4) Atrial fibrillation Comment: -currently NSR - Continue xarelto and atenolol (5) DVT prophylaxis Comment: - Xarelto Status and Disposition: Inpatient. Discharge to home when medically stable after HAP treatment
[2017-11-03] MEDS: Atorvastatin* 10 MG TAB PO SCH (20:05)
[2017-11-03] MEDS: Montelukast Sodium TAB* 10 MG PO SCH (20:05)
[2017-11-04] MEDS: Albuterol/Ipratropium NEB.SOL* Albuterol 2.5 MG/Ipratropium 0.5 MG 3 ML INH PRN ×3 (03:13→17:46)
[2017-11-04] MEDS: LORazepam TAB(*) 0.5 MG PO PRN ×2 (03:26→15:50)
[2017-11-04] MEDS: ZOSYN 3.375 GM Q8H per EXTENDED INFUSION IVPB SCH ×6 (05:28→22:01)
[2017-11-04] MEDS: Vancomycin(*) 750 MG in NS 0.9% 250 ML* 250 ML IVPB SCH ×3 (05:28→17:40)
[2017-11-04] MEDS ORDERED: Vancomycin Trough Check NOTE FOLLOW UP ONE (05:30)
[2017-11-04] MEDS: Clotrimazole TROCHE* 10 MG TROCHE PO SCH ×5 (05:38→21:57)
[2017-11-04] MEDS: Omeprazole CAP* 20 MG PO SCH (05:38)
[2017-11-04] MEDS: Levothyroxine TAB* 112 MCG TAB PO SCH (06:35)
[2017-11-04 06:56] LABS: EGFR Non-African American 58.9 (>60)
[2017-11-04] MEDS: Fluticasone NASAL SPRAY 50MCG* 16 gm SPRAY BTL BOTH NARES SCH (07:53)
[2017-11-04] MEDS: HydroxyUREA CAP* 500 MG CAP PO SCH (07:54)
[2017-11-04] MEDS: predniSONE TAB* 10 MG PO SCH (07:54)
[2017-11-04] MEDS: Lisinopril TAB* 10 MG PO SCH (07:55)
[2017-11-04] MEDS: FLUoxetine CAP* 20 MG PO SCH (07:56)
[2017-11-04] MEDS: Cetirizine* 10 MG TAB PO SCH (07:57)
[2017-11-04] MEDS: guaiFENesin ER TAB 600 MG PO SCH ×2 (07:57→21:57)
[2017-11-04] MEDS: Magnesium Oxide TAB* 400 MG PO SCH (07:57)
[2017-11-04] MEDS: Rivaroxaban TAB(*) 20 MG TAB PO SCH (07:57)
[2017-11-04] MEDS: Multivitamins/Minerals TAB PO SCH (07:57)
[2017-11-04] MEDS: Cholecalciferol TAB* 1000 UNITS PO SCH (07:57)
[2017-11-04] MEDS: Mometasone/Formoter 200/5 MDI INH SCH ×2 (08:16→19:32)
[2017-11-04] MEDS: Tiotropium CAP.INH* CAP.INH/18 MCG (USE ORDER SET !) INH SCH (08:18)
[2017-11-04 08:19] LABS: Hematocrit 31 % (35-47); Hemoglobin 9.1 g/dl (12.0-16.0); Mean Corpuscular HGB Conc 29 g/dl (31-36); Mean Corpuscular Hemoglobin 34 pg (27-31); Mean Corpuscular Volume 118 fL (80-97); Mean Platelet Volume 9.9 um3 (7.4-10.4); Platelet Count 1227 10^3/ul (150-450); Red Blood Count 2.65 10^6/ul (4.00-5.40); Red Cell Distribution Width 24 % (10.5-15); White Blood Count 25.4 10^3/ul (3.5-10.8)
[2017-11-04 09:06] LABS: ABS Basophils 0.1 10^3/ul (0-0.2); ABS Eosinophils 0.1 10^3/ul (0-0.6); ABS Neutrophils 13.2 10^3/ul (1.5-7.7); ABS Nucleated RBC 0 10^3/ul; Eosinophil % 0.2 % (0-6); Lymphocyte % 43.4 % (25-47); Nucleated Red Blood Cells % 0.1
[2017-11-04] MEDS: Atenolol TAB* 25 MG PO SCH (09:22)
--- NOTE | 2017-11-04 13:22 | PN ---
Progress Note - Progress Note Date of Service: 11/04/17 - Pulm f/u note Note: Pt seen and examined at bedside. Pt reports not feeling well today. Reports feeling fatigued. SOB is same, denies significant cough. Nebs are helping. Reports anxiety. Active Medications Generic Name Dose Route Start Last Admin Trade Name Freq PRN Reason Stop Dose Admin Acetaminophen 650 mg 10/22/17 21:18 10/26/17 02:30 Tylenol Tab* PO 650 mg Q6H PRN Administration FEVER/PAIN Albuterol/Ipratropium 1 neb 11/01/17 16:06 11/04/17 08:16 Duoneb (Albuterol 2.5 Mg/Ipratropium 0.5 Mg) INH 1 neb Q6H PRN Administration SOB/WHEEZING Atenolol 25 mg 10/23/17 09:00 11/04/17 09:22 Tenormin Tab* PO 25 mg DAILY [facility] Administration Atorvastatin Calcium 10 mg 10/23/17 21:00 11/03/17 20:05 Lipitor* PO 10 mg BEDTIME [facility] Administration Benzonatate 100 mg 10/22/17 21:18 10/31/17 22:29 Tessalon Cap* PO 100 mg BID PRN Administration COUGH Cetirizine HCl 10 mg 10/23/17 09:00 11/04/17 07:57 Zyrtec* PO 10 mg DAILY [facility] Administration Protocol Cholecalciferol 1,000 units 10/23/17 09:00 11/04/17 07:57 Vitamin D Tab* PO 1,000 units DAILY [facility] Administration Clotrimazole 10 mg 10/22/17 22:00 11/04/17 09:22 Mycelex Michael* PO 10 mg FIVE TIMES DAILY [facility] Administration Cyanocobalamin 1,000 mcg 10/24/17 09:00 11/03/17 08:22 Vitamin B12 Tab* PO 1,000 mcg EVERY OTHER DAY [facility] Administration Device 1 each 10/25/17 12:00 Tiotropium Inhaler Device* INH .USE w/ SPIRIVA CAPS [facility] Docusate Sodium 100 mg 10/22/17 21:26 Colace Cap* PO BID PRN CONSTIPATION Fluoxetine HCl 60 mg 10/31/17 09:00 11/04/17 07:56 Prozac Cap* PO 60 mg DAILY [facility] Administration Fluticasone Propionate 2 spray 10/23/17 09:00 11/04/17 07:53 Flonase Nasal [place] 50mcg* BOTH NARES 2 spray DAILY [facility] Administration Furosemide 20 mg 10/31/17 09:00 11/02/17 08:52 Lasix Tab* PO 20 mg MOWEFR [facility] Administration Guaifenesin 1,200 mg 10/23/17 09:00 11/04/17 07:57 Mucinex* PO 1,200 mg BID [facility] Administration Hydralazine HCl 5 mg 10/28/17 12:48 10/28/17 13:20 Apresoline Iv* IV SLOW PU 5 mg Q6H PRN Administration BLOOD PRESSURE Hydroxyurea 500 mg 11/02/17 12:00 11/04/17 07:54 Hydrea Cap* PO 500 mg DAILY [facility] Administration Piperacillin Sod/Tazobactam 100 mls @ 25 mls/hr 10/31/17 22:00 11/04/17 05:28 Sod 3.375 gm/ Sodium Chloride IVPB 25 mls/hr Q8H [facility] Administration Vancomycin HCl 750 mg/ Sodium 250 mls @ 166.667 mls/hr 11/03/17 06:00 07:31 Chloride IVPB 166.667 mls/hr Q12H [facility] Administration Levothyroxine Sodium 112 mcg 10/23/17 06:00 11/04/17 06:35 Synthroid Tab* PO 112 mcg 0600 [facility] Administration Lisinopril 40 mg 10/23/17 09:00 11/04/17 07:55 Prinivil Tab* PO 40 mg DAILY [facility] Administration Loperamide HCl 2 mg 10/22/17 21:26 Imodium Cap* PO TID PRN DIARRHEA Lorazepam 0.5 mg 10/30/17 15:18 11/04/17 03:26 Ativan Tab(*) PO 0.5 mg Q8H PRN Administration ANXIETY Magnesium Oxide 400 mg 10/23/17 09:00 11/04/17 07:57 Magox 400 Tab* PO 400 mg DAILY [facility] Administration Mometasone Furoate/Formoterol Fumar 2 puff 10/23/17 09:00 11/04/17 08:16 Dulera 200/5 Mdi* INH 2 puff BID [facility] Administration Protocol Montelukast Sodium 10 mg 10/23/17 21:00 11/03/17 20:05 Singulair Tab* PO 10 mg BEDTIME [facility] Administration Multivitamins/Minerals 1 tab 10/23/17 09:00 11/04/17 07:57 Theragran/Minerals Tab* PO 1 tab DAILY [facility] Administration Omeprazole 20 mg 10/23/17 07:30 11/04/17 05:38 Prilosec Cap* PO 20 mg 0730 [facility] Administration Ondansetron HCl 4 mg 10/22/17 21:18 Zofran 40 Mg Vial* IV Q6H PRN NAUSEA Pharmacy Consult 1 note 10/31/17 18:00 Vancomycin Per Pharmacy* FOLLOW UP .VANC PER PHARMACY [facility] Pharmacy Consult 1 note 10/31/17 18:00 Zosyn Per Pharmacy* FOLLOW UP .ZOSYN PER PHARMACY [facility] Prednisone 30 mg 10/30/17 09:00 11/04/17 07:54 Deltasone Tab* PO 30 mg DAILY [facility] Administration Rivaroxaban 20 mg 10/23/17 09:00 11/04/17 07:57 Xarelto(*) PO 20 mg DAILY [facility] Administration Tiotropium [place] 1 cap 10/26/17 09:00 11/04/17 08:18 Spiriva Cap.Inh* INH 1 cap.inh DAILY [facility] Administration Vital Signs Temp Pulse Resp BP Pulse Ox 97.6 F 92 22 167/54 97 11/04/17 08:16 11/04/17 08:19 11/04/17 08:19 11/04/17 08:16 11/04/17 08:19 O/E: Pt in NAD, sitting up in chair HEENT: PERRLA, no JVD Lungs: Diminished air entry at bases, crackles at bases, scattered wheeze +, diminished air entry on right side CVS: S1, S2+, regular Abd: Soft, BS+, NT Ext: Normal ROM Skin: No rash, no bruise Neuro: No focal deficits, alert, awake Laboratory Results - last 24 hr 11/04/17 11/04/17 11/04/17 06:11 06:11 06:11 WBC 25.4 H RBC 2.65 L Hgb 9.1 L Hct 31 L MCV 118 H MCH 34 H MCHC 29 L RDW 24 H Plt Count 1227 H D MPV 9.9 Neut % (Auto) 52.3 Lymph % (Auto) 43.4 [place] % (Auto) 3.9 Eos % (Auto) 0.2 Baso % (Auto) 0.2 Absolute Neuts (auto) 13.2 H Absolute Lymphs (auto) 11.0 H Absolute Monos (auto) 1.0 H Absolute Eos (auto) 0.1 Absolute Basos (auto) 0.1 Absolute Nucleated RBC 0 Nucleated RBC % 0.1 Sodium 143 Potassium 3.3 L Chloride 106 Carbon Dioxide 30 Anion Gap 7 BUN 7 Creatinine 0.92 Est GFR ( Amer) 71.3 Est GFR (Non-Af Amer) 58.9 BUN/Creatinine Ratio 7.6 L Glucose 82 Calcium 8.5 L Vancomycin Trough 17.3 CT chest: Air space opacity in RML along with bronchiectasis and mucus plugging in lower lobes L>R I/R: 77 yo F who has a h/o COPD, chronic hypoxic respiratory failure, afib, HTN , HLD, and chronic leukocytosis and thrombocytopenia who presented to the ER with c/o worsening SOB being treated for acute COPD exacerbation, also found to have worsening hypoxia, anemia. H&H stable SOB/hypoxia improved and worsened again, being treated for HCAP CT chest showed air space opacity that might be causing V/Q mismatch in Rt lung She also has prior h/o bronchiectasis with mucus plugging at bases Mucus clearance assistance with metanebs, incentive spirometry c/w O2 supplementation, currently needing 4L Reports anxiety issues, Ativan prn Pt recently was admitted few times with recurrent PNA- BOOP/[employer] versus medication side effect as pt was on hydrea Was restarted on hydea, now with increased platelets and WBC Steroids being tapered High risk for bronchoscopy, will c/w mucus clearance techniques Hematology f/u Will need f/u CT chest as out pt If opacities are persistent, will need to evaluate for BOOP/[employer] D/w Dr Ballard
[2017-11-04] MEDS ORDERED: Furosemide IV* 10 MG/ML VIAL (40 MG) IV ONE (14:53)
[2017-11-04] MEDS ORDERED: HydroxyUREA CAP* 500 MG CAP PO ONE (15:01)
--- NOTE | 2017-11-04 15:05 | PN ---
Subjective Date of Service: 11/04/17 Interval History: Pt still has cough, but noted to be more SOB today, no other complaints Family History: Unchanged from Admission Social History: Unchanged from Admission Past Medical History: Unchanged from Admission Objective Active Medications: Acetaminophen (Tylenol Tab*) 650 mg PO Q6H PRN PRN Reason: FEVER/PAIN Last Admin: 10/26/17 02:30 Dose: 650 mg Albuterol/Ipratropium (Duoneb (Albuterol 2.5 Mg/Ipratropium 0.5 Mg)) 1 neb INH Q6H PRN PRN Reason: SOB/WHEEZING Last Admin: 11/04/17 08:16 Dose: 1 neb Atenolol (Tenormin Tab*) 25 mg PO DAILY [facility] Last Admin: 11/04/17 09:22 Dose: 25 mg Atorvastatin Calcium (Lipitor*) 10 mg PO BEDTIME [facility] Last Admin: 11/03/17 20:05 Dose: 10 mg Benzonatate (Tessalon Cap*) 100 mg PO BID PRN PRN Reason: COUGH Last Admin: 10/31/17 22:29 Dose: 100 mg Cetirizine HCl (Zyrtec*) 10 mg PO DAILY [facility]; Protocol Last Admin: 11/04/17 07:57 Dose: 10 mg Cholecalciferol (Vitamin D Tab*) 1,000 units PO DAILY [facility] Last Admin: 11/04/17 07:57 Dose: 1,000 units Clotrimazole (Mycelex Michael*) 10 mg PO FIVE TIMES DAILY [facility] Last Admin: 11/04/17 14:56 Dose: 10 mg Cyanocobalamin (Vitamin B12 Tab*) 1,000 mcg PO EVERY OTHER DAY [facility] Last Admin: 11/03/17 08:22 Dose: 1,000 mcg Device (Tiotropium Inhaler Device*) 1 each INH .USE w/ SPIRIVA CAPS [facility] Docusate Sodium (Colace Cap*) 100 mg PO BID PRN PRN Reason: CONSTIPATION Fluoxetine HCl (Prozac Cap*) 60 mg PO DAILY [facility] Last Admin: 11/04/17 07:56 Dose: 60 mg Fluticasone Propionate (Flonase Nasal [place] 50mcg*) 2 spray BOTH NARES DAILY [facility] Last Admin: 11/04/17 07:53 Dose: 2 spray Furosemide (Lasix Iv*) 40 mg IV ONCE ONE Stop: 11/04/17 14:54 Guaifenesin (Mucinex*) 1,200 mg PO BID [facility] Last Admin: 11/04/17 07:57 Dose: 1,200 mg Hydralazine HCl (Apresoline Iv*) 5 mg IV SLOW PU Q6H PRN PRN Reason: BLOOD PRESSURE Last Admin: 10/28/17 13:20 Dose: 5 mg Hydroxyurea (Hydrea Cap*) 500 mg PO DAILY [facility] Last Admin: 11/04/17 07:54 Dose: 500 mg Piperacillin Sod/Tazobactam (Sod 3.375 gm/ Sodium Chloride) 100 mls @ 25 mls/ hr IVPB Q8H [facility] Last Admin: 11/04/17 14:15 Dose: 25 mls/hr Vancomycin HCl 750 mg/ Sodium (Chloride) 250 mls @ 166.667 mls/hr IVPB Q12H [facility] Last Admin: 11/04/17 07:31 Dose: 166.667 mls/hr Levothyroxine Sodium (Synthroid Tab*) 112 mcg PO 0600 [facility] Last Admin: 11/04/17 06:35 Dose: 112 mcg Lisinopril (Prinivil Tab*) 40 mg PO DAILY [facility] Last Admin: 11/04/17 07:55 Dose: 40 mg Loperamide HCl (Imodium Cap*) 2 mg PO TID PRN PRN Reason: DIARRHEA Lorazepam (Ativan Tab(*)) 0.5 mg PO Q8H PRN PRN Reason: ANXIETY Last Admin: 11/04/17 03:26 Dose: 0.5 mg Magnesium Oxide (Magox 400 Tab*) 400 mg PO DAILY [facility] Last Admin: 11/04/17 07:57 Dose: 400 mg Mometasone Furoate/Formoterol Fumar (Dulera 200/5 Mdi*) 2 puff INH BID [facility]; Protocol Last Admin: 11/04/17 08:16 Dose: 2 puff Montelukast Sodium (Singulair Tab*) 10 mg PO BEDTIME [facility] Last Admin: 11/03/17 20:05 Dose: 10 mg Multivitamins/Minerals (Theragran/Minerals Tab*) 1 tab PO DAILY [facility] Last Admin: 11/04/17 07:57 Dose: 1 tab Omeprazole (Prilosec Cap*) 20 mg PO 0730 [facility] Last Admin: 11/04/17 05:38 Dose: 20 mg Ondansetron HCl (Zofran 40 Mg Vial*) 4 mg IV Q6H PRN PRN Reason: NAUSEA Pharmacy Consult (Vancomycin Per Pharmacy*) 1 note FOLLOW UP .VANC PER PHARMACY [facility] Pharmacy Consult (Zosyn Per Pharmacy*) 1 note FOLLOW UP .ZOSYN PER PHARMACY [facility] Prednisone (Deltasone Tab*) 30 mg PO DAILY [facility] Last Admin: 11/04/17 07:54 Dose: 30 mg Rivaroxaban (Xarelto(*)) 20 mg PO DAILY [facility] Last Admin: 11/04/17 07:57 Dose: 20 mg Tiotropium [place] (Spiriva Cap.Inh*) 1 cap INH DAILY [facility] Last Admin: 11/04/17 08:18 Dose: 1 cap.inh Vital Signs - 8 hr 11/04/17 11/04/17 11/04/17 08:00 08:15 08:16 Temperature 97.6 F Pulse Rate 114 Respiratory 26 26 26 Rate Blood Pressure 167/54 (mmHg) O2 Sat by Pulse 97 95 Oximetry 11/04/17 11/04/17 08:19 12:04 Temperature 99.4 F Pulse Rate 89 89 Respiratory 22 24 Rate Blood Pressure 131/60 (mmHg) O2 Sat by Pulse 97 96 Oximetry Oxygen Devices in Use Now: Nasal Cannula Appearance: 77 yo F in nAD, aAOx3 Eyes: No Scleral Icterus, PERRLA Ears/Nose/Mouth/Throat: NL Teeth, Lips, Gums, Mucous Membranes Moist Neck: NL Appearance and Movements; NL JVP, Trachea Midline Respiratory: Symmetrical Chest Expansion and Respiratory Effort, - - crackles and rhonchi b/l bases Cardiovascular: NL Sounds; No Murmurs; No JVD, RRR Abdominal: NL Sounds; No Tenderness; No Distention Lymphatic: No Cervical Adenopathy Extremities: No Edema, No Clubbing, Cyanosis Skin: No Rash or Ulcers, No Nodules or Sclerosis Neurological: Alert and Oriented x 3, NL Muscle Strength and Tone Result Diagrams: 11/04/17 06:11 11/04/17 06:11 Microbiology and Other Data: Microbiology 10/22/17 17:42 Aerobic Blood Culture - Preliminary Blood Venous No Growth Day 2 Anaerobic Blood Culture - Preliminary No Growth Day 2 10/22/17 17:42 Aerobic Blood Culture - Preliminary Blood Venous No Growth Day 2 Anaerobic Blood Culture - Preliminary No Growth Day 2 Assess/Plan/Problems-Billing ASSESSMENT: Ms Keita is a 77 yo F who has a h/o COPD and chronic hypoxic respiratory failure, afib, HTN, HLD, and chronic leukocytosis and thrombocytopenia who presented to the ER with c/o severe SOB and was admitted for a COPD exacerbation with stay c/b suspected hospital acquired PNA - Patient Problems (1) Diastolic CHF Comment: Pt is on Lasix PO 3x/week. Today with increasing WOB, suspect more fluid retention. Will tx with one dose of IV Lasix, start checking daily weights. (2) Respiratory failure Comment: Acute on chronic hypoxemic resp. failure( at home on 3 L 02) was improving from COPD exacerbation but then worsening again CT found with consolidation appreciate pulmonology c/s. c/w vanco/zosyn for HAP seen on CT prednisone 30 mg and taper incentive spiromentry (3) COPD exacerbation Comment: Marked leukocytosis likely due to steroids cont Prednisone 30 mg (4) Essential thrombocythemia Comment: -hydrea restarted 11/02, d/w DR. Snyder, due to marked Plyt elevation increasing hydroxyurea to 100 mg today (5) Atrial fibrillation Comment: -currently NSR - Continue xarelto and atenolol (6) DVT prophylaxis Comment: - Xarelto Status and Disposition: Inpatient. Discharge to home when medically stable after HAP treatment
[2017-11-04] MEDS: Atorvastatin* 10 MG TAB PO SCH (21:57)
[2017-11-04] MEDS: Montelukast Sodium TAB* 10 MG PO SCH (21:57)
[2017-11-04] MEDS: Benzonatate CAP* 100 MG PO PRN (21:57)
[2017-11-05] MEDS: hydrALAZINE IV* 20 MG/ML VIAL IV SLOW PU PRN (00:02)
[2017-11-05] MEDS: Albuterol/Ipratropium NEB.SOL* Albuterol 2.5 MG/Ipratropium 0.5 MG 3 ML INH PRN ×3 (00:36→21:30)
[2017-11-05] MEDS ORDERED: Morphine VIAL* 4 MG/ML VIAL (1 ml vial) IV ONE (01:18)
--- NOTE | 2017-11-05 04:18 | PN ---
Progress Note - Progress Note Date of Service: 11/05/17 Note: Cross coverage: SOB with tachypnea overnight Associated with anxiety but unclear this was the source Improved with 1 mg IV morphine and pt was able to sleep Breath sounds were b/l with good air movement during episode Episode lasted >1 hour Pt woke from sleep with the SOB Required 15L o2 until tachypnea improved
[2017-11-05] MEDS: Omeprazole CAP* 20 MG PO SCH (05:59)
[2017-11-05] MEDS: Clotrimazole TROCHE* 10 MG TROCHE PO SCH ×5 (05:59→21:30)
[2017-11-05] MEDS: Vancomycin(*) 750 MG in NS 0.9% 250 ML* 250 ML IVPB SCH ×2 (05:59→19:01)
[2017-11-05] MEDS: ZOSYN 3.375 GM Q8H per EXTENDED INFUSION IVPB SCH ×2 (06:00)
[2017-11-05] MEDS: Levothyroxine TAB* 112 MCG TAB PO SCH (06:10)
[2017-11-05] MEDS: Tiotropium CAP.INH* CAP.INH/18 MCG (USE ORDER SET !) INH SCH (09:03)
[2017-11-05] MEDS: Mometasone/Formoter 200/5 MDI INH SCH ×2 (09:04→21:30)
[2017-11-05 09:06] LABS: Hematocrit 31 % (35-47); Hemoglobin 9.5 g/dl (12.0-16.0); Mean Corpuscular HGB Conc 31 g/dl (31-36); Mean Corpuscular Hemoglobin 35 pg (27-31); Mean Corpuscular Volume 115 fL (80-97); Platelet Count 1368 10^3/ul (150-450); Red Blood Count 2.71 10^6/ul (4.00-5.40); Red Cell Distribution Width 23 % (10.5-15); White Blood Count 30.4 10^3/ul (3.5-10.8)
[2017-11-05 09:18] LABS: EGFR Non-African American 57.4 (>60)
--- NOTE | 2017-11-05 09:23 | RAD ---
Indication: Worsening shortness of breath. Atrial fibrillation. Chronic obstructive pulmonary disease. Comparison: October 31, 2017 CT. Technique: Upright AP 0904 hours Report: Complete RIGHT middle lobe atelectasis. LEFT basilar airspace consolidation. Overall increased lung volumes and diffuse mild prominence of the interstitial markings and upper lung zone rarefaction. Negative for pleural effusion or pneumothorax. Negative for cardiomegaly. Unremarkable central pulmonary vasculature. Unremarkable mediastinal contours accounting for rightward rotation. IMPRESSION: #. Chronic obstructive pulmonary disease with complete RIGHT middle lobe atelectasis and patchy alveolar consolidation at the LEFT lung base concerning for pneumonia.
[2017-11-05] MEDS: guaiFENesin ER TAB 600 MG PO SCH ×2 (09:34→21:23)
[2017-11-05] MEDS: Cholecalciferol TAB* 1000 UNITS PO SCH (09:34)
[2017-11-05] MEDS: predniSONE TAB* 10 MG PO SCH (09:34)
[2017-11-05] MEDS: HydroxyUREA CAP* 500 MG CAP PO SCH (09:35)
[2017-11-05] MEDS: Cetirizine* 10 MG TAB PO SCH (09:35)
[2017-11-05] MEDS: Multivitamins/Minerals TAB PO SCH (09:36)
[2017-11-05] MEDS: Magnesium Oxide TAB* 400 MG PO SCH (09:36)
[2017-11-05] MEDS: Rivaroxaban TAB(*) 20 MG TAB PO SCH (09:36)
[2017-11-05] MEDS: Atenolol TAB* 25 MG PO SCH (09:37)
[2017-11-05] MEDS: FLUoxetine CAP* 20 MG PO SCH (09:38)
[2017-11-05] MEDS: Cyanocobalamin TAB* 500 MCG PO SCH (09:38)
[2017-11-05] MEDS: Fluticasone NASAL SPRAY 50MCG* 16 gm SPRAY BTL BOTH NARES SCH (09:40)
[2017-11-05] MEDS: Lisinopril TAB* 10 MG PO SCH (09:41)
[2017-11-05] MEDS: LORazepam TAB(*) 0.5 MG PO PRN ×2 (10:04)
--- NOTE | 2017-11-05 10:05 | PN ---
Progress Note - Progress Note Date of Service: 11/05/17 SOAP: Subjective: []Increased difficulty breathing over last several days. Can barely eat anything. Cough is very wet and makes her choke. Gets anxious with breathing difficulty and wonders if there is something else to help. Feels very tired and worn out. Weak and can't open containers. Resumed Hydrea 11/02 @ 500 mg and increased to 1000 mg yesterday 11/04. Is anti- coagulated with Xarelto d/t A.Fib. Medications: Acetaminophen (Tylenol Tab*) 650 mg PO Q6H PRN PRN Reason: FEVER/PAIN Last Admin: 10/26/17 02:30 Dose: 650 mg Albuterol/Ipratropium (Duoneb (Albuterol 2.5 Mg/Ipratropium 0.5 Mg)) 1 neb INH Q6H PRN PRN Reason: SOB/WHEEZING Last Admin: 11/05/17 09:03 Dose: 1 neb Atenolol (Tenormin Tab*) 25 mg PO DAILY [facility] Last Admin: 11/05/17 09:37 Dose: 25 mg Atorvastatin Calcium (Lipitor*) 10 mg PO BEDTIME [facility] Last Admin: 11/04/17 21:57 Dose: 10 mg Benzonatate (Tessalon Cap*) 100 mg PO BID PRN PRN Reason: COUGH Last Admin: 11/04/17 21:57 Dose: 100 mg Cetirizine HCl (Zyrtec*) 10 mg PO DAILY [facility]; Protocol Last Admin: 11/05/17 09:35 Dose: 10 mg Cholecalciferol (Vitamin D Tab*) 1,000 units PO DAILY [facility] Last Admin: 11/05/17 09:34 Dose: 1,000 units Clotrimazole (Mycelex Michael*) 10 mg PO FIVE TIMES DAILY [facility] Last Admin: 11/05/17 05:59 Dose: 10 mg Cyanocobalamin (Vitamin B12 Tab*) 1,000 mcg PO EVERY OTHER DAY [facility] Last Admin: 11/05/17 09:38 Dose: 1,000 mcg Device (Tiotropium Inhaler Device*) 1 each INH .USE w/ SPIRIVA CAPS [facility] Docusate Sodium (Colace Cap*) 100 mg PO BID PRN PRN Reason: CONSTIPATION Fluoxetine HCl (Prozac Cap*) 60 mg PO DAILY [facility] Last Admin: 11/05/17 09:38 Dose: 60 mg Fluticasone Propionate (Flonase Nasal [place] 50mcg*) 2 spray BOTH NARES DAILY [facility] Last Admin: 11/05/17 09:40 Dose: 2 spray Guaifenesin (Mucinex*) 1,200 mg PO BID [facility] Last Admin: 11/05/17 09:34 Dose: 1,200 mg Hydralazine HCl (Apresoline Iv*) 5 mg IV SLOW PU Q6H PRN PRN Reason: BLOOD PRESSURE Last Admin: 11/05/17 00:02 Dose: 5 mg Hydroxyurea (Hydrea Cap*) 1,000 mg PO DAILY [facility] Last Admin: 11/05/17 09:35 Dose: 1,000 mg Piperacillin Sod/Tazobactam (Sod 3.375 gm/ Sodium Chloride) 100 mls @ 25 mls/ hr IVPB Q8H [facility] Last Admin: 11/05/17 06:00 Dose: 25 mls/hr Vancomycin HCl 750 mg/ Sodium (Chloride) 250 mls @ 166.667 mls/hr IVPB Q12H [facility] Last Admin: 11/05/17 05:59 Dose: 166.667 mls/hr Levothyroxine Sodium (Synthroid Tab*) 112 mcg PO 0600 [facility] Last Admin: 11/05/17 06:10 Dose: 112 mcg Lisinopril (Prinivil Tab*) 40 mg PO DAILY [facility] Last Admin: 11/05/17 09:41 Dose: 40 mg Loperamide HCl (Imodium Cap*) 2 mg PO TID PRN PRN Reason: DIARRHEA Lorazepam (Ativan Tab(*)) 0.5 mg PO Q8H PRN PRN Reason: ANXIETY Last Admin: 11/05/17 00:00 Dose: 0.5 mg Magnesium Oxide (Magox 400 Tab*) 400 mg PO DAILY [facility] Last Admin: 11/05/17 09:36 Dose: 400 mg Mometasone Furoate/Formoterol Fumar (Dulera 200/5 Mdi*) 2 puff INH BID [facility]; Protocol Last Admin: 11/05/17 09:04 Dose: 2 puff Montelukast Sodium (Singulair Tab*) 10 mg PO BEDTIME [facility] Last Admin: 11/04/17 21:57 Dose: 10 mg Multivitamins/Minerals (Theragran/Minerals Tab*) 1 tab PO DAILY [facility] Last Admin: 11/05/17 09:36 Dose: 1 tab Omeprazole (Prilosec Cap*) 20 mg PO 0730 [facility] Last Admin: 11/05/17 05:59 Dose: 20 mg Ondansetron HCl (Zofran 40 Mg Vial*) 4 mg IV Q6H PRN PRN Reason: NAUSEA Pharmacy Consult (Vancomycin Per Pharmacy*) 1 note FOLLOW UP .VANC PER PHARMACY [facility] Pharmacy Consult (Zosyn Per Pharmacy*) 1 note FOLLOW UP .ZOSYN PER PHARMACY [facility] Prednisone (Deltasone Tab*) 30 mg PO DAILY [facility] Last Admin: 11/05/17 09:34 Dose: 30 mg Rivaroxaban (Xarelto(*)) 20 mg PO DAILY [facility] Last Admin: 11/05/17 09:36 Dose: 20 mg Tiotropium [place] (Spiriva Cap.Inh*) 1 cap INH DAILY [facility] Last Admin: 11/05/17 09:03 Dose: 1 cap.inh Objective: [] Vital Signs Temp Pulse Resp BP Pulse Ox 99.2 F 101 22 133/72 92 11/05/17 07:41 11/05/17 09:09 11/05/17 08:00 11/05/17 07:41 11/05/17 09:09 A&Ox3, EOMI, PERRLA, neuro grossly non-focal HRI, tachy LS dim. to bases with crackles bilat., tachypnea Laboratory Results - last 24 hr 11/03/17 11/04/17 11/05/17 06:58 06:11 08:52 WBC 30.4 H RBC 2.71 L Hgb 9.5 L Hct 31 L MCV 115 H MCH 35 H MCHC 31 RDW 23 H Plt Count 1368 H D MPV 9.0 Hem Pathologist Commnt Sodium Potassium Chloride Carbon Dioxide Anion Gap BUN Creatinine Est GFR ( Amer) Est GFR (Non-Af Amer) BUN/Creatinine Ratio Glucose Lactic Acid Calcium Magnesium 11/05/17 11/05/17 08:52 08:52 WBC RBC Hgb Hct MCV MCH MCHC RDW Plt Count MPV Hem Pathologist Commnt Sodium 142 Potassium 3.1 L Chloride 103 Carbon Dioxide 31 Anion Gap 8 BUN 9 Creatinine 0.94 Est GFR ( Amer) 69.5 Est GFR (Non-Af Amer) 57.4 BUN/Creatinine Ratio 9.6 Glucose 110 H Lactic Acid 1.0 Calcium 8.5 L Magnesium 1.9 Assessment: []77 yo female followed hem/onc d/t ET with HU held during admission due to worsening anemia, however resumed with marked progression of thrombocytosis over last week. She unfortunately is doing rather poorly in regards to her respiratory status and I discussed with Dr. Ballard consideration of BiPaP. Plan: []1. ET: Cont. HU @ 1000 mg qday, will take several days to improve plt., but no increase today - anti-coagulated appropriately d/t A.Fib, no ASA for now - I do not think resp. status is r/t a PE - daily CBC 2. Anxiety: recommend scheduling ativan for a period of time 3. With tachypnea may benefit from addition of ensure/boost for ease of nutrition 4. 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
--- NOTE | 2017-11-05 10:18 | PN ---
Subjective Date of Service: 11/05/17 Interval History: pt had been SOB most of the night. Today in AM, tripoding with increased WOB and accessory muscle use. C/o cough and SOB Family History: Unchanged from Admission Social History: Unchanged from Admission Past Medical History: Unchanged from Admission Objective Active Medications: Acetaminophen (Tylenol Tab*) 650 mg PO Q6H PRN PRN Reason: FEVER/PAIN Last Admin: 10/26/17 02:30 Dose: 650 mg Albuterol/Ipratropium (Duoneb (Albuterol 2.5 Mg/Ipratropium 0.5 Mg)) 1 neb INH Q6H PRN PRN Reason: SOB/WHEEZING Last Admin: 11/05/17 09:03 Dose: 1 neb Atenolol (Tenormin Tab*) 25 mg PO DAILY [facility] Last Admin: 11/05/17 09:37 Dose: 25 mg Atorvastatin Calcium (Lipitor*) 10 mg PO BEDTIME [facility] Last Admin: 11/04/17 21:57 Dose: 10 mg Benzonatate (Tessalon Cap*) 100 mg PO BID PRN PRN Reason: COUGH Last Admin: 11/04/17 21:57 Dose: 100 mg Cetirizine HCl (Zyrtec*) 10 mg PO DAILY [facility]; Protocol Last Admin: 11/05/17 09:35 Dose: 10 mg Cholecalciferol (Vitamin D Tab*) 1,000 units PO DAILY [facility] Last Admin: 11/05/17 09:34 Dose: 1,000 units Clotrimazole (Mycelex Michael*) 10 mg PO FIVE TIMES DAILY [facility] Last Admin: 11/05/17 05:59 Dose: 10 mg Cyanocobalamin (Vitamin B12 Tab*) 1,000 mcg PO EVERY OTHER DAY [facility] Last Admin: 11/05/17 09:38 Dose: 1,000 mcg Device (Tiotropium Inhaler Device*) 1 each INH .USE w/ SPIRIVA CAPS [facility] Docusate Sodium (Colace Cap*) 100 mg PO BID PRN PRN Reason: CONSTIPATION Fluoxetine HCl (Prozac Cap*) 60 mg PO DAILY [facility] Last Admin: 11/05/17 09:38 Dose: 60 mg Fluticasone Propionate (Flonase Nasal [place] 50mcg*) 2 spray BOTH NARES DAILY [facility] Last Admin: 11/05/17 09:40 Dose: 2 spray Guaifenesin (Mucinex*) 1,200 mg PO BID [facility] Last Admin: 11/05/17 09:34 Dose: 1,200 mg Hydralazine HCl (Apresoline Iv*) 5 mg IV SLOW PU Q6H PRN PRN Reason: BLOOD PRESSURE Last Admin: 11/05/17 00:02 Dose: 5 mg Hydroxyurea (Hydrea Cap*) 1,000 mg PO DAILY [facility] Last Admin: 11/05/17 09:35 Dose: 1,000 mg Piperacillin Sod/Tazobactam (Sod 3.375 gm/ Sodium Chloride) 100 mls @ 25 mls/ hr IVPB Q8H [facility] Last Admin: 11/05/17 06:00 Dose: 25 mls/hr Vancomycin HCl 750 mg/ Sodium (Chloride) 250 mls @ 166.667 mls/hr IVPB Q12H [facility] Last Admin: 11/05/17 05:59 Dose: 166.667 mls/hr Potassium Chloride (Potassium Chloride 20 Meq/100 Ml Ivpremix*) 20 meq in 100 mls @ 50 mls/hr IV Q2H [facility] Stop: 11/05/17 16:59 Levothyroxine Sodium (Synthroid Tab*) 112 mcg PO 0600 [facility] Last Admin: 11/05/17 06:10 Dose: 112 mcg Lisinopril (Prinivil Tab*) 40 mg PO DAILY [facility] Last Admin: 11/05/17 09:41 Dose: 40 mg Loperamide HCl (Imodium Cap*) 2 mg PO TID PRN PRN Reason: DIARRHEA Lorazepam (Ativan Tab(*)) 0.5 mg PO Q4H PRN PRN Reason: ANXIETY Magnesium Oxide (Magox 400 Tab*) 400 mg PO DAILY [facility] Last Admin: 11/05/17 09:36 Dose: 400 mg Mometasone Furoate/Formoterol Fumar (Dulera 200/5 Mdi*) 2 puff INH BID [facility]; Protocol Last Admin: 11/05/17 09:04 Dose: 2 puff Montelukast Sodium (Singulair Tab*) 10 mg PO BEDTIME [facility] Last Admin: 11/04/17 21:57 Dose: 10 mg Multivitamins/Minerals (Theragran/Minerals Tab*) 1 tab PO DAILY [facility] Last Admin: 11/05/17 09:36 Dose: 1 tab Omeprazole (Prilosec Cap*) 20 mg PO 0730 [facility] Last Admin: 11/05/17 05:59 Dose: 20 mg Ondansetron HCl (Zofran 40 Mg Vial*) 4 mg IV Q6H PRN PRN Reason: NAUSEA Pharmacy Consult (Vancomycin Per Pharmacy*) 1 note FOLLOW UP .VANC PER PHARMACY [facility] Pharmacy Consult (Zosyn Per Pharmacy*) 1 note FOLLOW UP .ZOSYN PER PHARMACY [facility] Prednisone (Deltasone Tab*) 30 mg PO DAILY [facility] Last Admin: 11/05/17 09:34 Dose: 30 mg Rivaroxaban (Xarelto(*)) 20 mg PO DAILY [facility] Last Admin: 11/05/17 09:36 Dose: 20 mg Tiotropium [place] (Spiriva Cap.Inh*) 1 cap INH DAILY [facility] Last Admin: 11/05/17 09:03 Dose: 1 cap.inh Vital Signs - 8 hr 11/05/17 11/05/17 11/05/17 04:52 06:28 07:41 Temperature 98.9 F 99.2 F Pulse Rate 127 96 Respiratory 28 26 22 Rate Blood Pressure 154/62 133/72 (mmHg) O2 Sat by Pulse 95 98 Oximetry 11/05/17 11/05/17 11/05/17 08:00 09:09 10:04 Temperature Pulse Rate 101 Respiratory 22 28 Rate Blood Pressure (mmHg) O2 Sat by Pulse 98 92 Oximetry Oxygen Devices in Use Now: OxyMask Appearance: 77 yo F with increased WOB, tripoding in bed, AAOx3 Eyes: No Scleral Icterus, PERRLA Ears/Nose/Mouth/Throat: NL Teeth, Lips, Gums, Mucous Membranes Moist Neck: NL Appearance and Movements; NL JVP, Trachea Midline Respiratory: - - b/l mid lung rhonchi and wheezes Cardiovascular: - - irregular, tachy Abdominal: NL Sounds; No Tenderness; No Distention, No Hepatosplenomegaly Lymphatic: No Cervical Adenopathy Extremities: No Edema, No Clubbing, Cyanosis Skin: No Rash or Ulcers, No Nodules or Sclerosis Neurological: Alert and Oriented x 3, NL Muscle Strength and Tone Result Diagrams: 11/05/17 08:52 11/05/17 08:52 Microbiology and Other Data: Microbiology 10/22/17 17:42 Aerobic Blood Culture - Preliminary Blood Venous No Growth Day 2 Anaerobic Blood Culture - Preliminary No Growth Day 2 10/22/17 17:42 Aerobic Blood Culture - Preliminary Blood Venous No Growth Day 2 Anaerobic Blood Culture - Preliminary No Growth Day 2 Assess/Plan/Problems-Billing ASSESSMENT: Ms Keita is a 77 yo F who has a h/o COPD and chronic hypoxic respiratory failure, afib, HTN, HLD, and chronic leukocytosis and thrombocytopenia who presented to the ER with c/o severe SOB and was admitted for a COPD exacerbation with stay c/b suspected hospital acquired PNA - Patient Problems (1) Respiratory failure Comment: Acute on chronic hypoxemic resp. failure( at home on ) was improving from COPD exacerbation but then worsening again. Today pt is in acute respiratory distress. Will transfer to ICU, start Vapotherm, ask commercial decorator to see pt. CT found with consolidation in RML which on today's CXR is progressing. Blood cx and sputum cx reordered on 11/05/17 appreciate pulmonology c/s. c/w vanco/zosyn for HAP seen on CT Will change prednisone 30 mg back to Solu Medrol (2) Diastolic CHF Comment: Pt is on Lasix PO 3x/week at home. With increasing WOB pt was given IV lasix on 11/04/17 with no improvement of SOB. PO Lasix stopped (3) COPD exacerbation Comment: Marked leukocytosis likely due to steroids, but with pt appearing septic again will re-culture blood and sputum (4) Essential thrombocythemia Comment: -hydrea restarted 11/02, d/w DR. Snyder, due to marked Plt elevation increased hydroxyurea to 1000 mg on 11/04/17 (5) Atrial fibrillation Comment: -currently back in a. fib due to resp distress - Continue xarelto and atenolol (6) DVT prophylaxis Comment: - Xarelto Status and Disposition: Inpatient.
[2017-11-05] MEDS: methylPREDNISolone SOD 40 MG* 1 ML VIAL IV SCH ×2 (11:08→21:20)
[2017-11-05] MEDS: KCL 20 MEQ/100 ML IVPREMIX* 20 MEQ/100 ML BAG IV SCH ×3 (11:20→16:12)
--- NOTE | 2017-11-05 11:27 | CONSULT ---
Consult Consult: Consultation Note Critical Care Requesting Physician: Dr Amber Ballard Reason for consult: respiratory failure Limitations in history/physical: respiratory distress Date of consult: 11/05/2017 HPI: 77y F pmhx of COPD on 2-3L home O2, myeloproliferative disorder/essential thrombocytosis, hypothyroidism, Afib, HLD, HTN, h/o Pneumonia and PE in past, anxiety disorder; recent hospitalization 09/2017 at [facility] for COPD exacerbation, sepsis/pneumonia. Comes to ER 10/22 for SOB, temp 100.3, admitted for COPD exacerbation. During stay, hypoxia improved then started to worsen. Past few days noted to have increasing WBC counts, increasing fio2 requirements and respiratory distress. Noted to have new RML consolidation, confirmed on CT chest along with areas of bronchiectasis on left lower lobe. She has been upgraded to the ICU now. Current in resp distress, diffuse wheezing on examination, on 100% hiflow, rr 20s, stats mid-upper 90s at times. She feels bad, tired, sob+. Cough+, sputum+ but not bringing it up. Tmax 99.5. Noted to have negative fluid balance past days, being given Lasix daily. ROS: negative except for pertinent positives mentioned above. PMHx: COPD on 2-3L home O2, myeloproliferative disorder/essential thrombocytosis , hypothyroidism, Afib, HLD, HTN, h/o Pneumonia and PE in past, anxiety disorder PSHx: tubal ligation, cataract surgery Family History: CAD, HTN, DM, CVA Social History: Alcohol-none, Smoking-former, Drug use-none; lives at intermediate Allergies: Allergies Allergy/AdvReac Type Severity Reaction Status Date / Time amlodipine [From Norvasc] Allergy See Comment Verified 10/22/17 17:02 azithromycin [From Zithromax] Allergy Diarrhea Verified 10/22/17 17:02 clarithromycin [From Biaxin] Allergy Hives Verified 10/22/17 17:02 garlic Allergy Diarrhea Verified 10/22/17 17:02 Home Medications: RX: Atorvastatin* [Lipitor 10 MG*] 10 mg PO BEDTIME 05/14/12 [History Confirmed 10/22/17] RX: FLUoxetine CAP* [Prozac CAP*] 40 mg PO DAILY 05/14/12 [History Confirmed ] RX: Montelukast Sodium TAB* [Singulair 10 MG TAB*] 10 mg PO BEDTIME 05/14/12 [ History Confirmed 10/22/17] RX: Omeprazole CAP* [Prilosec CAP* 20 MG] 20 mg PO DAILY 05/14/12 [History Confirmed 10/22/17] RX: Alendronate (NF) [Fosamax (NF)] 70 mg PO .EVERY Sunday09/07/14 [History Confirmed 10/22/17] RX: Levothyroxine TAB* [Synthorid 112 MCG TAB*] 112 mcg PO DAILY 09/07/14 [ History Confirmed 10/22/17] RX: Albuterol/Ipratropium RESP(NF) [Combivent Respimat (NF)] 1 puff INH TID PRN 05/25/15 [History Confirmed 10/22/17] RX: Budesonide/Formote 160/4.5(NF) [Symbicort 160/4.5 (NF)] 2 puff INH BID 08/09 [History Confirmed 10/22/17] RX: Calcium Carbonate/Vitamin D3 [Calcium 600-Vit D3 200 Tablet] 1 tab PO DAILY 08/09/16 [History Confirmed 10/22/17] RX: Furosemide TAB* [Lasix TAB*] 20 mg PO MOWEFR 08/09/16 [History Confirmed ] RX: Ipratropium [place] 2 spray NASAL TID PRN 08/09/16 [History Confirmed ] RX: Albuterol 2.5MG/3ML (0.083%)* [Ventolin 2.5 MG/3 ML NEB.GAVIN*] 2.5 mg INH Q6H PRN 11/20/16 [History Confirmed 10/22/17] RX: Cholecalciferol TAB* [Vitamin D TAB*] 1,000 units PO DAILY 11/20/16 [ History Confirmed 10/22/17] RX: Cyanocobalamin TAB* [Vitamin B12 TAB*] 1,000 mcg PO EVERY OTHER DAY [History Confirmed 10/22/17] RX: Docusate CAP* [Colace Cap*] 100 - 200 mg PO BID PRN 11/20/16 [History Confirmed 10/22/17] RX: Fluticasone NASAL SPRAY 50MCG* [Flonase NASAL SPRAY 50MCG*] 2 spray BOTH NARES DAILY 11/20/16 [History Confirmed 10/22/17] RX: Ipratropium 0.5MG/2.5ML NEB* [Atrovent 0.5 MG NEB.GAVIN*] 0.5 mg INH TID PRN 11/20/16 [History Confirmed 10/22/17] RX: Iron Ps Complex/B12/Folic Acid [Poly-Iron 150 Forte Capsule] 150 mg PO DAILY 11/20/16 [History Confirmed 10/22/17] RX: LORazepam TAB(*) [Ativan 0.5 MG TAB (*)] 0.25 - 0.5 mg PO BEDTIME PRN [History Confirmed 10/22/17] RX: Magnesium Oxide TAB* [MagOx 400 TAB*] 400 mg PO DAILY 11/20/16 [History Confirmed 10/22/17] RX: Multivitamins/Minerals TAB* [Theragran/minerals TAB*] 1 tab PO DAILY [History Confirmed 10/22/17] RX: Rivaroxaban TAB(*) [Xarelto 20 mg] 20 mg PO DAILY 11/20/16 [History Confirmed 10/22/17] RX: Tiotropium CAP.INH* [Spiriva CAP.INH*] 1 cap INH DAILY PRN 11/20/16 [ History Confirmed 10/22/17] RX: guaiFENesin LIQ* [Robitussin*] 10 ml PO QID PRN 11/20/16 [History Confirmed 10/22/17] RX: Atenolol TAB* [Tenormin TAB* 25 MG] 25 mg PO DAILY #30 tab 11/23/16 [Rx Confirmed 10/22/17] RX: Acetaminophen [Acetaminophen Extra Strength] 1,000 mg PO Q8H 07/03/17 [ History Confirmed 10/22/17] RX: Albuterol HFA INHALER* [Ventolin HFA Inhaler*] 2 puff INH Q4H PRN 07/03/17 [ History Confirmed 10/22/17] RX: Cetirizine* [ZyrTEC 10 MG TAB*] 10 mg PO DAILY 07/03/17 [History Confirmed 10/22/17] RX: Lisinopril TAB* [Prinivil TAB 10 MG*] 40 mg PO DAILY 07/03/17 [History Confirmed 10/22/17] RX: Loperamide CAP* [Imodium CAP*] 2 mg PO TID PRN 07/03/17 [History Confirmed 10/22/17] RX: Propylene Glycol/Peg 400/Pf [Systane 0.3-0.4% Eye Drops] 1 drop BOTH EYES QID PRN 07/03/17 [History Confirmed 10/22/17] RX: HydroxyUREA CAP* [Hydrea CAP*] 1,500 mg PO DAILY #90 cap 10/07/17 [Rx Confirmed 10/22/17] Acetaminophen with Codeine [Acetaminophen/Codeine Emeterio 300-30 mg] 1 tab PO BID [History Confirmed 10/22/17] Tele: afib with rvr Vitals: Vital Signs Temp 99.5 F 11/05/17 11:01 Pulse 150 11/05/17 11:01 Resp 32 11/05/17 11:01 BP 153/91 11/05/17 11:01 Pulse Ox 97 11/05/17 11:01 Intake & Output 11/04/17 11/05/17 11/05/17 18:59 06:59 18:59 Intake Total 240 200 Output Total 600 1600 Balance -360 -1400 Weight 156 lb 8.451 oz Intake: Oral 240 200 Output: Urine 600 1600 Other: Estimated Void Large # Bowel Movements 1 0 Estimated Stool Amount Medium Small # Voids 2 O2/Vent: hiflow 100% 40lpm Infusions: heplock Current Medications: Current Medications Acetaminophen (Tylenol Tab*) 650 mg PO Q6H PRN PRN Reason: FEVER/PAIN Last Admin: 10/26/17 02:30 Dose: 650 mg Albuterol (Ventolin 2.5 Mg/3 Ml Neb.Gavin*) 2.5 mg INH Q20M SONJA Stop: 11/05/17 12:41 Albuterol/Ipratropium (Duoneb (Albuterol 2.5 Mg/Ipratropium 0.5 Mg)) 1 neb INH Q6H PRN PRN Reason: SOB/WHEEZING Last Admin: 11/05/17 09:03 Dose: 1 neb Atorvastatin Calcium (Lipitor*) 10 mg PO BEDTIME SONJA Last Admin: 11/04/17 21:57 Dose: 10 mg Benzonatate (Tessalon Cap*) 100 mg PO BID PRN PRN Reason: COUGH Last Admin: 11/04/17 21:57 Dose: 100 mg Cetirizine HCl (Zyrtec*) 10 mg PO DAILY [facility]; Protocol Last Admin: 11/05/17 09:35 Dose: 10 mg Cholecalciferol (Vitamin D Tab*) 1,000 units PO DAILY [facility] Last Admin: 11/05/17 09:34 Dose: 1,000 units Clotrimazole (Mycelex Michael*) 10 mg PO FIVE TIMES DAILY [facility] Last Admin: 11/05/17 05:59 Dose: 10 mg Cyanocobalamin (Vitamin B12 Tab*) 1,000 mcg PO EVERY OTHER DAY [facility] Last Admin: 11/05/17 09:38 Dose: 1,000 mcg Device (Tiotropium Inhaler Device*) 1 each INH .USE w/ SPIRIVA CAPS [facility] Diltiazem HCl (Cardizem Tab*) 30 mg PO Q6HR [facility] Docusate Sodium (Colace Cap*) 100 mg PO BID PRN PRN Reason: CONSTIPATION Famotidine (Pepcid Tab*) 20 mg PO DAILY [facility] Fluoxetine HCl (Prozac Cap*) 60 mg PO DAILY [facility] Last Admin: 11/05/17 09:38 Dose: 60 mg Fluticasone Propionate (Flonase Nasal [place] 50mcg*) 2 spray BOTH NARES DAILY [facility] Last Admin: 11/05/17 09:40 Dose: 2 spray Guaifenesin (Mucinex*) 1,200 mg PO BID [facility] Last Admin: 11/05/17 09:34 Dose: 1,200 mg Hydralazine HCl (Apresoline Iv*) 5 mg IV SLOW PU Q6H PRN PRN Reason: BLOOD PRESSURE Last Admin: 11/05/17 00:02 Dose: 5 mg Hydroxyurea (Hydrea Cap*) 1,000 mg PO DAILY [facility] Last Admin: 11/05/17 09:35 Dose: 1,000 mg Vancomycin HCl 750 mg/ Sodium (Chloride) 250 mls @ 166.667 mls/hr IVPB Q12H [facility] Last Admin: 11/05/17 05:59 Dose: 166.667 mls/hr Potassium Chloride (Potassium Chloride 20 Meq/100 Ml Ivpremix*) 20 meq in 100 mls @ 50 mls/hr IV Q2H [facility] Stop: 11/05/17 16:59 Last Admin: 11/05/17 11:20 Dose: 50 mls/hr Meropenem (Merrem 500mg Premix(*)) 500 mg in 50 mls @ 100 mls/hr IV Q8H [facility] Levothyroxine Sodium (Synthroid Tab*) 112 mcg PO 0600 [facility] Last Admin: 11/05/17 06:10 Dose: 112 mcg Lisinopril (Prinivil Tab*) 40 mg PO DAILY [facility] Last Admin: 11/05/17 09:41 Dose: 40 mg Loperamide HCl (Imodium Cap*) 2 mg PO TID PRN PRN Reason: DIARRHEA Lorazepam (Ativan Tab(*)) 0.5 mg PO Q4H PRN PRN Reason: ANXIETY Magnesium Oxide (Magox 400 Tab*) 400 mg PO DAILY [facility] Last Admin: 11/05/17 09:36 Dose: 400 mg Methylprednisolone Sodium Succinate (Solu-Medrol 40 Mg) 40 mg IV Q8H [facility] Last Admin: 11/05/17 11:08 Dose: 40 mg Mometasone Furoate/Formoterol Fumar (Dulera 200/5 Mdi*) 2 puff INH BID [facility]; Protocol Last Admin: 11/05/17 09:04 Dose: 2 puff Montelukast Sodium (Singulair Tab*) 10 mg PO BEDTIME [facility] Last Admin: 11/04/17 21:57 Dose: 10 mg Morphine Sulfate (Morphine Inj (Syringe)*) 2 mg IV Q6H PRN PRN Reason: PAIN - MILD Multivitamins/Minerals (Theragran/Minerals Tab*) 1 tab PO DAILY [facility] Last Admin: 11/05/17 09:36 Dose: 1 tab Nystatin (Nystatin Top Powder*) 1 applic TOPICAL TID [facility] Omeprazole (Prilosec Cap*) 20 mg PO 0730 [facility] Last Admin: 11/05/17 05:59 Dose: 20 mg Ondansetron HCl (Zofran 40 Mg Vial*) 4 mg IV Q6H PRN PRN Reason: NAUSEA Pharmacy Consult (Vancomycin Per Pharmacy*) 1 note FOLLOW UP .VANC PER PHARMACY [facility] Rivaroxaban (Xarelto(*)) 20 mg PO DAILY [facility] Last Admin: 11/05/17 09:36 Dose: 20 mg Tiotropium [place] (Spiriva Cap.Inh*) 1 cap INH DAILY [facility] Last Admin: 11/05/17 09:03 Dose: 1 cap.inh Physical Exam: General: awake, alert, resp distress + , no diaphoresis Head: normocephalic, atraumatic HEENT: no pallor, no icterus, moist mucous membranes Neck: soft, supple, no jvd, no stridor CVS: tachy, irregular, no murmur Resp: bilateral air entry, no rhales, bilateral wheeze+, no rhonchi, mild acc muscle use upper Abdomen: soft, nontender, nondistended, bowel sounds present Ext: pulses+, warm, no edema Skin: intact, no breakdown, no dryness Neuro: awake, alert, orientedx3, moving all extremities, no gross focal deficit Labs: Laboratory Results - last 24 hr 11/03/17 11/04/17 11/05/17 06:58 06:11 08:52 WBC 30.4 H RBC 2.71 L Hgb 9.5 L Hct 31 L MCV 115 H MCH 35 H MCHC 31 RDW 23 H Plt Count 1368 H D MPV 9.0 Hem Pathologist Commnt Sodium Potassium Chloride Carbon Dioxide Anion Gap BUN Creatinine Est GFR ( Amer) Est GFR (Non-Af Amer) BUN/Creatinine Ratio Glucose Lactic Acid Calcium Magnesium 11/05/17 11/05/17 08:52 08:52 WBC RBC Hgb Hct MCV MCH MCHC RDW Plt Count MPV Hem Pathologist Commnt Sodium 142 Potassium 3.1 L Chloride 103 Carbon Dioxide 31 Anion Gap 8 BUN 9 Creatinine 0.94 Est GFR ( Amer) 69.5 Est GFR (Non-Af Amer) 57.4 BUN/Creatinine Ratio 9.6 Glucose 110 H Lactic Acid 1.0 Calcium 8.5 L Magnesium 1.9 Imaging: CT chest 10/31 RML consolidation+, areas of bronchiectasis on left lower lobe? Some developing consolidation? (official report reviewed) cxr 11/05 RML consolidation+, some left lower lobe infiltrate+ Assessment: 77y F pmhx of COPD on 2-3L home O2, myeloproliferative disorder/ essential thrombocytosis, hypothyroidism, Afib, HLD, HTN, h/o Pneumonia and PE in past, anxiety disorder; recent hospitalization 09/2017 at [facility] for COPD exacerbation, sepsis/pneumonia. Comes to ER 10/22 for SOB, temp 100.3, admitted for COPD exacerbation. During stay, hypoxia improved then started to worsen. Past few days noted to have increasing WBC counts, increasing fio2 requirements and respiratory distress. Noted to have new RML consolidation, confirmed on CT chest along with areas of bronchiectasis on left lower lobe. She has been upgraded to the ICU for respiratory failure. -acute on chronic hypoxic respiratory failure -acute exaccerbation of COPD -RML pneumonia and possible Left lower lobe pneumonia -Severe Sepsis 2/2 to pneumonia -Essential thrombocytosis -Afib, with RVR -anxiety h/o PE Plan: Neuro- anxiety from resp distress; morphine for anxiety and distress, prn xanax. delirium prec. CVS- afib, rvr; change atenolol to cardizem PO 30mg q6h, will given IV as needed. Cont Xarelto 20mg daily for AC for Afib/PE. Euvolemic, lasix PRN for now. BP hypertensive. would start asa for thrombocytosis if okay with heme. Resp- acute on chronic hypoxia; noted CXR with RML consolidation and even left lower. CT chest reviewed. obtain sputum culture. no improvement with zosyn for past few days now. Agree with solumedrol 40mg iv q8h. Bronchodilators q4h prn. albuteorl 3x cont nebs now for wheezing. cont hiflow, may require NIV at some point. DNR, not DNI, trial of intubaiton okay. attempt Chest PT. may need repeat CT chest to eval for development of abscess/collection as this may be delaying her improvement. ID- tmax 99.5, wbc increasing progressively. on steroid but increased just yesterday. Not likely reactive but underlying infection is possible given her clinical state. She is at risk of pseudomonal infection given her obstructive lung disease, recurrent admissions, pneumonias in past and now with bronchiectasis. Sputum cx if able. Change zosyn to merrem, cont vanco though no sig improvement. ?linezolid, but no culture yet. Nystatin poweder to vulva/ under breast. GI- clear liquid if able only for now. H2B po. Renal- Cr okay. hypokalemia, replete K IV 20meq x3. hold further lasix. no acidosis. no secalante Heme- anemia, chronic disease? stable 8-9s. Increasing plt count in setting of active infection, reactive process. hydrea increased now. would add asa to dec thrombosis risk. cont Rivaroxaban for Afib/PE tx. Endo- fingersticks as needed. po synthroid. Musculsk- bedrest. pressure ulcer proph. Wounds- none Nutrition- clear liquid only for now. DVT prophylaxis: rivaroxaban; SCDs GI prophylaxis: H2B Central Line: no Arterial Line: no [place]alante Cathetor: no Disposition: ICU Code Status: DNR, not DNI, trial of intubation okay. Total Critical Care time is 50 minutes, excluding procedures/teaching Pako Rios MD [employer] (Electronically Signed)
[2017-11-05] MEDS: Diltiazem TAB* 30 MG PO SCH ×2 (12:10→19:00)
[2017-11-05] MEDS: Famotidine TAB* 20 MG PO SCH (12:10)
[2017-11-05] MEDS: Morphine VIAL* 4 MG/ML VIAL (1 ml vial) IV PRN (12:10)
[2017-11-05] MEDS: Albuterol 2.5 MG/3 ML NEB.SOL* (0.083%) INH SCH (12:19)
[2017-11-05] MEDS: Meropenem 500MG PREMIX(*) 500 MG/50 ML BAG IV SCH ×2 (12:49→21:23)
[2017-11-05] MEDS: Nystatin TOP POWDER* 15 GM BTL TOPICAL SCH ×2 (14:11→21:23)
[2017-11-05] MEDS: Atorvastatin* 10 MG TAB PO SCH (21:23)
[2017-11-05] MEDS: Montelukast Sodium TAB* 10 MG PO SCH (21:23)
[2017-11-06] MEDS: Diltiazem TAB* 30 MG PO SCH ×2 (01:16→06:15)
[2017-11-06] MEDS: Meropenem 500MG PREMIX(*) 500 MG/50 ML BAG IV SCH ×3 (04:00→19:19)
[2017-11-06] MEDS: methylPREDNISolone SOD 40 MG* 1 ML VIAL IV SCH ×3 (04:00→22:58)
[2017-11-06 04:44] LABS: Hematocrit 28 % (35-47); Hemoglobin 8.4 g/dl (12.0-16.0); Mean Corpuscular HGB Conc 30 g/dl (31-36); Mean Corpuscular Hemoglobin 35 pg (27-31); Mean Corpuscular Volume 114 fL (80-97); Mean Platelet Volume 9.4 um3 (7.4-10.4); Platelet Count 1114 10^3/ul (150-450); Red Blood Count 2.44 10^6/ul (4.00-5.40); Red Cell Distribution Width 23 % (10.5-15); White Blood Count 28.9 10^3/ul (3.5-10.8)
[2017-11-06 04:47] LABS: EGFR Non-African American 70.2 (>60)
[2017-11-06] MEDS: Clotrimazole TROCHE* 10 MG TROCHE PO SCH ×5 (06:15→20:26)
[2017-11-06] MEDS: Vancomycin(*) 750 MG in NS 0.9% 250 ML* 250 ML IVPB SCH ×2 (06:15→17:51)
[2017-11-06] MEDS: Levothyroxine TAB* 112 MCG TAB PO SCH (06:15)
[2017-11-06] MEDS: Omeprazole CAP* 20 MG PO SCH (07:38)
[2017-11-06] MEDS: Lisinopril TAB* 10 MG PO SCH (09:17)
[2017-11-06] MEDS: Cholecalciferol TAB* 1000 UNITS PO SCH ×2 (09:17→10:16)
[2017-11-06] MEDS: Magnesium Oxide TAB* 400 MG PO SCH ×2 (09:17→10:16)
[2017-11-06] MEDS: guaiFENesin ER TAB 600 MG PO SCH ×2 (09:18→20:26)
[2017-11-06] MEDS: Famotidine TAB* 20 MG PO SCH ×2 (09:18→10:15)
[2017-11-06] MEDS: Multivitamins/Minerals TAB PO SCH ×2 (09:18→10:11)
[2017-11-06] MEDS: Cetirizine* 10 MG TAB PO SCH ×2 (09:18→10:15)
[2017-11-06] MEDS: FLUoxetine CAP* 20 MG PO SCH ×2 (09:18→10:14)
--- NOTE | 2017-11-06 09:22 | PN ---
Subjective Date of Service: 11/06/17 Interval History: Pt feels " better" on Vapotherm ,less cough, noted b/l 1st toes ecchymotic from hitting them on something several days ago Family History: Unchanged from Admission Social History: Unchanged from Admission Past Medical History: Unchanged from Admission Objective Active Medications: Acetaminophen (Tylenol Tab*) 650 mg PO Q6H PRN PRN Reason: FEVER/PAIN Last Admin: 10/26/17 02:30 Dose: 650 mg Albuterol/Ipratropium (Duoneb (Albuterol 2.5 Mg/Ipratropium 0.5 Mg)) 1 neb INH Q6H PRN PRN Reason: SOB/WHEEZING Last Admin: 11/05/17 21:30 Dose: 1 neb Atorvastatin Calcium (Lipitor*) 10 mg PO BEDTIME [facility] Last Admin: 11/05/17 21:23 Dose: 10 mg Benzonatate (Tessalon Cap*) 100 mg PO BID PRN PRN Reason: COUGH Last Admin: 11/04/17 21:57 Dose: 100 mg Cetirizine HCl (Zyrtec*) 10 mg PO DAILY [facility]; Protocol Last Admin: 11/05/17 09:35 Dose: 10 mg Cholecalciferol (Vitamin D Tab*) 1,000 units PO DAILY [facility] Last Admin: 11/05/17 09:34 Dose: 1,000 units Clotrimazole (Mycelex Michael*) 10 mg PO FIVE TIMES DAILY [facility] Last Admin: 11/06/17 06:15 Dose: 10 mg Cyanocobalamin (Vitamin B12 Tab*) 1,000 mcg PO EVERY OTHER DAY [facility] Last Admin: 11/05/17 09:38 Dose: 1,000 mcg Device (Tiotropium Inhaler Device*) 1 each INH .USE w/ SPIRIVA CAPS [facility] Diltiazem HCl (Cardizem Tab*) 30 mg PO Q6HR [facility] Last Admin: 11/06/17 06:15 Dose: 30 mg Docusate Sodium (Colace Cap*) 100 mg PO BID PRN PRN Reason: CONSTIPATION Famotidine (Pepcid Tab*) 20 mg PO DAILY [facility] Last Admin: 11/05/17 12:10 Dose: 20 mg Fluoxetine HCl (Prozac Cap*) 60 mg PO DAILY [facility] Last Admin: 11/05/17 09:38 Dose: 60 mg Fluticasone Propionate (Flonase Nasal [place] 50mcg*) 2 spray BOTH NARES DAILY [facility] Last Admin: 11/05/17 09:40 Dose: 2 spray Guaifenesin (Mucinex*) 1,200 mg PO BID [facility] Last Admin: 11/05/17 21:23 Dose: 1,200 mg Hydralazine HCl (Apresoline Iv*) 5 mg IV SLOW PU Q6H PRN PRN Reason: BLOOD PRESSURE Last Admin: 11/05/17 00:02 Dose: 5 mg Hydroxyurea (Hydrea Cap*) 1,000 mg PO DAILY [facility] Last Admin: 11/05/17 09:35 Dose: 1,000 mg Vancomycin HCl 750 mg/ Sodium (Chloride) 250 mls @ 166.667 mls/hr IVPB Q12H [facility] Last Admin: 11/06/17 06:15 Dose: 166.667 mls/hr Meropenem (Merrem 500mg Premix(*)) 500 mg in 50 mls @ 100 mls/hr IV Q8H [facility] Last Admin: 11/06/17 04:00 Dose: 100 mls/hr Levothyroxine Sodium (Synthroid Tab*) 112 mcg PO 0600 [facility] Last Admin: 11/06/17 06:15 Dose: 112 mcg Lisinopril (Prinivil Tab*) 40 mg PO DAILY [facility] Last Admin: 11/05/17 09:41 Dose: 40 mg Loperamide HCl (Imodium Cap*) 2 mg PO TID PRN PRN Reason: DIARRHEA Lorazepam (Ativan Tab(*)) 0.5 mg PO Q4H PRN PRN Reason: ANXIETY Magnesium Oxide (Magox 400 Tab*) 400 mg PO DAILY [facility] Last Admin: 11/05/17 09:36 Dose: 400 mg Methylprednisolone Sodium Succinate (Solu-Medrol 40 Mg) 40 mg IV Q8H [facility] Last Admin: 11/06/17 04:00 Dose: 40 mg Mometasone Furoate/Formoterol Fumar (Dulera 200/5 Mdi*) 2 puff INH BID [facility]; Protocol Last Admin: 11/05/17 21:30 Dose: 2 puff Montelukast Sodium (Singulair Tab*) 10 mg PO BEDTIME [facility] Last Admin: 11/05/17 21:23 Dose: 10 mg Morphine Sulfate (Morphine Vial*) 2 mg IV Q6H PRN PRN Reason: PAIN - MILD Last Admin: 11/05/17 12:10 Dose: 2 mg Multivitamins/Minerals (Theragran/Minerals Tab*) 1 tab PO DAILY [facility] Last Admin: 11/05/17 09:36 Dose: 1 tab Nystatin (Nystatin Top Powder*) 1 applic TOPICAL TID [facility] Last Admin: 11/05/17 21:23 Dose: 1 applic Omeprazole (Prilosec Cap*) 20 mg PO 0730 [facility] Last Admin: 11/06/17 07:38 Dose: 20 mg Ondansetron HCl (Zofran 40 Mg Vial*) 4 mg IV Q6H PRN PRN Reason: NAUSEA Pharmacy Consult (Vancomycin Per Pharmacy*) 1 note FOLLOW UP .VANC PER PHARMACY [facility] Pharmacy Profile Note (Vancomycin Trough Check) 1 note FOLLOW UP 529 ONE Stop: 11/08/17 05:31 Rivaroxaban (Xarelto(*)) 20 mg PO DAILY [facility] Last Admin: 11/05/17 09:36 Dose: 20 mg Tiotropium [place] (Spiriva Cap.Inh*) 1 cap INH DAILY [facility] Last Admin: 11/05/17 09:03 Dose: 1 cap.inh Vital Signs - 8 hr 11/06/17 11/06/17 11/06/17 01:17 01:31 01:45 Temperature Pulse Rate 74 80 81 Respiratory 22 23 23 Rate Blood Pressure 142/79 137/80 132/63 (mmHg) O2 Sat by Pulse 100 99 99 Oximetry 11/06/17 11/06/17 11/06/17 02:00 02:01 02:15 Temperature Pulse Rate 99 79 80 Respiratory 22 24 24 Rate Blood Pressure 136/80 121/70 (mmHg) O2 Sat by Pulse 98 98 100 Oximetry 11/06/17 11/06/17 11/06/17 02:30 02:45 03:00 Temperature Pulse Rate 74 79 80 Respiratory 25 23 22 Rate Blood Pressure 111/74 120/63 (mmHg) O2 Sat by Pulse 98 98 99 Oximetry 11/06/17 11/06/17 11/06/17 03:01 03:15 03:17 Temperature 98.9 F Pulse Rate 69 81 Respiratory 25 22 Rate Blood Pressure 117/62 137/65 (mmHg) O2 Sat by Pulse 99 100 Oximetry 11/06/17 11/06/1718 03:31 03:46 04:00 Temperature Pulse Rate 75 82 95 Respiratory 18 22 22 Rate Blood Pressure 136/87 144/60 140/79 (mmHg) O2 Sat by Pulse 99 99 99 Oximetry 11/06/17 11/06/17 11/06/17 04:16 04:30 04:45 Temperature Pulse Rate 83 76 70 Respiratory 25 23 19 Rate Blood Pressure 128/77 135/82 129/79 (mmHg) O2 Sat by Pulse 100 99 99 Oximetry 11/06/17 11/06/17 11/06/17 05:00 05:01 05:16 Temperature Pulse Rate 90 86 80 Respiratory 23 22 24 Rate Blood Pressure 140/70 136/66 (mmHg) O2 Sat by Pulse 99 99 99 Oximetry 11/06/17 11/06/17 11/06/17 05:31 05:46 06:00 Temperature Pulse Rate 72 83 89 Respiratory 22 22 23 Rate Blood Pressure 125/65 136/66 (mmHg) O2 Sat by Pulse 99 100 94 Oximetry 11/06/17 11/06/17 11/06/17 06:01 06:16 06:30 Temperature Pulse Rate 68 83 98 Respiratory 23 23 25 Rate Blood Pressure 137/70 138/58 127/72 (mmHg) O2 Sat by Pulse 93 99 98 Oximetry 11/06/17 11/06/17 11/06/17 06:41 06:45 07:00 Temperature Pulse Rate 94 93 Respiratory 23 23 24 Rate Blood Pressure 133/73 (mmHg) O2 Sat by Pulse 94 95 Oximetry 11/06/17 11/06/17 11/06/17 07:01 07:15 07:31 Temperature Pulse Rate 83 102 99 Respiratory 24 21 31 Rate Blood Pressure 121/75 132/70 129/71 (mmHg) O2 Sat by Pulse 96 95 93 Oximetry 11/06/17 11/06/17 11/06/17 07:44 07:45 07:49 Temperature 99.8 F Pulse Rate 90 Respiratory 25 28 Rate Blood Pressure 138/68 (mmHg) O2 Sat by Pulse 96 95 Oximetry 11/06/17 11/06/17 11/06/17 08:00 08:16 09:00 Temperature Pulse Rate 96 91 88 Respiratory 21 25 26 Rate Blood Pressure 119/105 133/67 (mmHg) O2 Sat by Pulse 98 94 98 Oximetry 11/06/17 09:01 Temperature Pulse Rate 94 Respiratory 26 Rate Blood Pressure 169/82 (mmHg) O2 Sat by Pulse 98 Oximetry Oxygen Devices in Use Now: High Flow Heated Nasal Cannula Appearance: 77 yo F in nAD, aAOx3 Eyes: No Scleral Icterus, PERRLA Ears/Nose/Mouth/Throat: NL Teeth, Lips, Gums, Mucous Membranes Moist Neck: NL Appearance and Movements; NL JVP, Trachea Midline Respiratory: Symmetrical Chest Expansion and Respiratory Effort, - - rhonchi in LLL, decreased breath sounds on R Cardiovascular: NL Sounds; No Murmurs; No JVD, RRR Abdominal: NL Sounds; No Tenderness; No Distention Lymphatic: No Cervical Adenopathy Extremities: No Edema, No Clubbing, Cyanosis Skin: No Nodules or Sclerosis, - - b/l 1st toes ecchymotic Neurological: Alert and Oriented x 3, NL Muscle Strength and Tone Result Diagrams: 11/06/17 04:15 11/06/17 04:15 Microbiology and Other Data: Microbiology 10/22/17 17:42 Aerobic Blood Culture - Preliminary Blood Venous No Growth Day 2 Anaerobic Blood Culture - Preliminary No Growth Day 2 10/22/17 17:42 Aerobic Blood Culture - Preliminary Blood Venous No Growth Day 2 Anaerobic Blood Culture - Preliminary No Growth Day 2 Assess/Plan/Problems-Billing ASSESSMENT: Ms Keita is a 77 yo F who has a h/o COPD and chronic hypoxic respiratory failure, afib, HTN, HLD, and chronic leukocytosis and thrombocytopenia who presented to the ER with c/o severe SOB and was admitted for a COPD exacerbation with stay c/b suspected hospital acquired PNA - Patient Problems (1) Respiratory failure Comment: Acute on chronic hypoxemic resp. failure( at home on ) was improving from COPD exacerbation but then worsening again. Back in acute respiratory distress on 11/05/17-transfered to ICU on Vapotherm. Zosyn changed to meropenem. today improving. Solu Medrol IV to cont for now. apreciate DR. Rios' s and Francisco's imput. (2) Diastolic CHF Comment: Pt is on Lasix PO 3x/week at home. With increasing WOB pt was given IV lasix on 11/04/17 with no improvement of SOB. PO Lasix stopped (3) COPD exacerbation Comment: Marked leukocytosis likely due to steroids, but with pt appearing septic again on 11/05/17 blood cx ordered and antibiotcs changed from Zosyn and Vanc to meropenem and Vanc (4) Essential thrombocythemia Comment: -hydrea restarted 11/02, d/w DR. Snyder, due to marked Plt elevation increased hydroxyurea to 1000 mg on 11/04/17 (5) Atrial fibrillation Comment: -currently back in NSR - Continue xarelto and atenolol (6) DVT prophylaxis Comment: - Xarelto Status and Disposition: Inpatient.
[2017-11-06] MEDS: Tiotropium CAP.INH* CAP.INH/18 MCG (USE ORDER SET !) INH SCH (09:56)
[2017-11-06] MEDS: Mometasone/Formoter 200/5 MDI INH SCH ×2 (09:57→20:55)
[2017-11-06] MEDS: Rivaroxaban TAB(*) 20 MG TAB PO SCH (10:08)
--- NOTE | 2017-11-06 10:08 | PN ---
Progress Note - Progress Note Date of Service: 11/06/17 Note: Progress Note - Critical Care 24 hour events: -on hiflow, less fio2 -feels better today, cough+, bringing up sputum+ -no diarrhea/n/v/cp Tele: afib with rvr at times Vitals: Vital Signs Temp 99.8 F 11/06/17 07:44 Pulse 104 11/06/17 10:01 Resp 21 11/06/17 10:01 BP 162/55 11/06/17 10:01 Pulse Ox 96 11/06/17 10:01 Intake & Output 11/05/17 11/06/17 11/06/17 18:59 06:59 18:59 Intake Total 423 931 990 Output Total 325 0 Balance 423 606 990 Weight 162 lb 0.636 oz Intake: IV Fluids 423 145 NS (0.9%) 423 145 IVPB 411 ABX - VANCOMYCIN 297 Meropenem 114 Oral 375 990 Output: Urine 0 0 [place] 325 Other: Estimated Void Large # Bowel Movements 0 # Voids 0 O2/Vent: hiflow 70% 35lpm Infusions: heplock Current Medications: Acetaminophen (Tylenol Tab*) 650 mg PO Q6H PRN PRN Reason: FEVER/PAIN Last Admin: 10/26/17 02:30 Dose: 650 mg Albuterol/Ipratropium (Duoneb (Albuterol 2.5 Mg/Ipratropium 0.5 Mg)) 1 neb INH Q6H PRN PRN Reason: SOB/WHEEZING Last Admin: 11/05/17 21:30 Dose: 1 neb Atorvastatin Calcium (Lipitor*) 10 mg PO BEDTIME SONJA Last Admin: 11/05/17 21:23 Dose: 10 mg Benzonatate (Tessalon Cap*) 100 mg PO BID PRN PRN Reason: COUGH Last Admin: 11/04/17 21:57 Dose: 100 mg Cetirizine HCl (Zyrtec*) 10 mg PO DAILY [facility]; Protocol Last Admin: 11/06/17 10:15 Dose: 10 mg Cholecalciferol (Vitamin D Tab*) 1,000 units PO DAILY SONJA Last Admin: 11/06/17 10:16 Dose: 1,000 units Clotrimazole (Mycelex Michael*) 10 mg PO FIVE TIMES DAILY [facility] Last Admin: 11/06/17 06:15 Dose: 10 mg Cyanocobalamin (Vitamin B12 Tab*) 1,000 mcg PO EVERY OTHER DAY [facility] Last Admin: 11/05/17 09:38 Dose: 1,000 mcg Device (Tiotropium Inhaler Device*) 1 each INH .USE w/ SPIRIVA CAPS [facility] Diltiazem HCl (Cardizem Tab*) 30 mg PO Q6HR [facility] Last Admin: 11/06/17 06:15 Dose: 30 mg Docusate Sodium (Colace Cap*) 100 mg PO BID PRN PRN Reason: CONSTIPATION Famotidine (Pepcid Tab*) 20 mg PO DAILY [facility] Last Admin: 11/06/17 10:15 Dose: 20 mg Fluoxetine HCl (Prozac Cap*) 60 mg PO DAILY [facility] Last Admin: 11/06/17 10:14 Dose: 60 mg Fluticasone Propionate (Flonase Nasal [place] 50mcg*) 2 spray BOTH NARES DAILY [facility] Last Admin: 11/06/17 10:17 Dose: 2 spray Guaifenesin (Mucinex*) 1,200 mg PO BID [facility] Last Admin: 11/06/17 09:18 Dose: 1,200 mg Hydralazine HCl (Apresoline Iv*) 5 mg IV SLOW PU Q6H PRN PRN Reason: BLOOD PRESSURE Last Admin: 11/05/17 00:02 Dose: 5 mg Hydroxyurea (Hydrea Cap*) 1,000 mg PO DAILY [facility] Last Admin: 11/06/17 10:11 Dose: 1,000 mg Vancomycin HCl 750 mg/ Sodium (Chloride) 250 mls @ 166.667 mls/hr IVPB Q12H [facility] Last Admin: 11/06/17 06:15 Dose: 166.667 mls/hr Meropenem (Merrem 500mg Premix(*)) 500 mg in 50 mls @ 100 mls/hr IV Q8H [facility] Last Admin: 11/06/17 04:00 Dose: 100 mls/hr Levothyroxine Sodium (Synthroid Tab*) 112 mcg PO 0600 [facility] Last Admin: 11/06/17 06:15 Dose: 112 mcg Lisinopril (Prinivil Tab*) 40 mg PO DAILY [facility] Last Admin: 11/06/17 09:17 Dose: 40 mg Loperamide HCl (Imodium Cap*) 2 mg PO TID PRN PRN Reason: DIARRHEA Lorazepam (Ativan Tab(*)) 0.5 mg PO Q4H PRN PRN Reason: ANXIETY Magnesium Oxide (Magox 400 Tab*) 400 mg PO DAILY [facility] Last Admin: 11/06/17 10:16 Dose: 400 mg Methylprednisolone Sodium Succinate (Solu-Medrol 40 Mg) 40 mg IV Q8H [facility] Last Admin: 11/06/17 04:00 Dose: 40 mg Mometasone Furoate/Formoterol Fumar (Dulera 200/5 Mdi*) 2 puff INH BID [facility]; Protocol Last Admin: 11/06/17 09:57 Dose: 2 puff Montelukast Sodium (Singulair Tab*) 10 mg PO BEDTIME [facility] Last Admin: 11/05/17 21:23 Dose: 10 mg Morphine Sulfate (Morphine Vial*) 2 mg IV Q6H PRN PRN Reason: PAIN - MILD Last Admin: 11/05/17 12:10 Dose: 2 mg Multivitamins/Minerals (Theragran/Minerals Tab*) 1 tab PO DAILY [facility] Last Admin: 11/06/17 10:11 Dose: 1 tab Nystatin (Nystatin Top Powder*) 1 applic TOPICAL TID [facility] Last Admin: 11/05/17 21:23 Dose: 1 applic Omeprazole (Prilosec Cap*) 20 mg PO 0730 [facility] Last Admin: 11/06/17 07:38 Dose: 20 mg Ondansetron HCl (Zofran 40 Mg Vial*) 4 mg IV Q6H PRN PRN Reason: NAUSEA Pharmacy Consult (Vancomycin Per Pharmacy*) 1 note FOLLOW UP .VANC PER PHARMACY [facility] Pharmacy Profile Note (Vancomycin Trough Check) 1 note FOLLOW UP 0530 ONE Stop: 11/08/17 05:31 Rivaroxaban (Xarelto(*)) 20 mg PO DAILY [facility] Last Admin: 11/06/17 10:08 Dose: 20 mg Tiotropium [place] (Spiriva Cap.Inh*) 1 cap INH DAILY [facility] Last Admin: 11/06/17 09:56 Dose: 1 cap.inh Physical Exam: General: awake, alert, mild tachypnea, resp distress better today , no diaphoresis Head: normocephalic, atraumatic HEENT: no pallor, no icterus, moist mucous membranes Neck: soft, supple, no jvd, no stridor CVS: tachy, irregular, no murmur Resp: bilateral air entry, no rhales, no wheezing, no rhonchi, mild acc muscle use upper Abdomen: soft, nontender, nondistended, bowel sounds present Ext: pulses+, warm, no edema Skin: intact, no breakdown, no dryness Neuro: awake, alert, orientedx3, moving all extremities, no gross focal deficit Labs: Laboratory Results - last 24 hr 11/06/17 11/06/17 04:15 04:15 WBC 28.9 H RBC 2.44 L Hgb 8.4 L Hct 28 L MCV 114 H MCH 35 H MCHC 30 L RDW 23 H Plt Count 1114 H D MPV 9.4 Sodium 139 Potassium 4.1 Chloride 106 Carbon Dioxide 26 Anion Gap 7 BUN 12 Creatinine 0.79 Est GFR ( Amer) 84.9 Est GFR (Non-Af Amer) 70.2 BUN/Creatinine Ratio 15.2 Glucose 157 H Calcium 8.3 L Imaging: CT chest 10/31 RML consolidation+, areas of bronchiectasis on left lower lobe? Some developing consolidation? (official report reviewed) cxr 11/05 RML consolidation+, some left lower lobe infiltrate+ Assessment: 77y F pmhx of COPD on 2-3L home O2, myeloproliferative disorder/ essential thrombocytosis, hypothyroidism, Afib, HLD, HTN, h/o Pneumonia and PE in past, anxiety disorder; recent hospitalization 09/2017 at [facility] for COPD exacerbation, sepsis/pneumonia. Comes to ER 10/22 for SOB, temp 100.3, admitted for COPD exacerbation. During stay, hypoxia improved then started to worsen. Past few days noted to have increasing WBC counts, increasing fio2 requirements and respiratory distress. Noted to have new RML consolidation, confirmed on CT chest along with areas of bronchiectasis on left lower lobe. She has been upgraded to the ICU for respiratory failure. -acute on chronic hypoxic respiratory failure -acute exaccerbation of COPD -RML pneumonia and possible Left lower lobe pneumonia -Severe Sepsis / to pneumonia -Essential thrombocytosis -Afib, with RVR -anxiety h/o PE Plan: Neuro- anxiety from resp distress; morphine for anxiety and distress, prn xanax. delirium prec. CVS- afib, rvr; increase cardizem PO 60mg q6h. Cont Xarelto 20mg daily for AC for Afib/PE. Euvolemic, lasix PRN for now. BP hypertensive. would start asa for thrombocytosis if okay with heme. Resp- acute on chronic hypoxia; less fio2, nonw on 70% 35lpm hiflow. CXR tomorrow; previous noted CXR with RML consolidation and even left lower. obtain sputum culture today, to be sent. wheezing improved, dec solumedrol 40mg iv q12h. Bronchodilators q4h prn. DNR, not DNI, trial of intubaiton okay. Chest PT as needed. may need repeat CT chest to eval for development of abscess/ collection if worsening. ID- tmax 99, wbc 28k , not much change. on steroids. She is at risk of HCAP infections given her obstructive lung disease, recurrent admissions, pneumonias in past and now with bronchiectasis. Sputum to be sent. Cont merrem 1gm q12h, cont vanco. Nystatin poweder to vulva/under breast. GI- cardiac diet. PPI po. Renal- Cr okay. Lasix PRN. no acidosis. no escalante Heme- anemia, chronic disease? stable 8-9s. Increasing plt count in setting of active infection, reactive process. Cont Hydrea. would add asa to dec thrombosis risk if okay with heme. cont Rivaroxaban for Afib/PE tx. Endo- fingersticks as needed. po synthroid. Musculsk- can be oob to chair today. pressure ulcer proph. Wounds- none Nutrition- cardiac diet DVT prophylaxis: rivaroxaban; SCDs GI prophylaxis: PPI Central Line: no Arterial Line: no Escalante Cathetor: no Disposition: ICU Code Status: DNR, not DNI, trial of intubation okay. Total Critical Care time is 40 minutes, excluding procedures/teaching Pako Rios MD [employer] (Electronically Signed)
[2017-11-06] MEDS: HydroxyUREA CAP* 500 MG CAP PO SCH (10:11)
[2017-11-06] MEDS: Fluticasone NASAL SPRAY 50MCG* 16 gm SPRAY BTL BOTH NARES SCH (10:17)
[2017-11-06] MEDS: Nystatin TOP POWDER* 15 GM BTL TOPICAL SCH ×3 (11:11→20:27)
[2017-11-06] MEDS ORDERED: Aspirin TAB* 325 MG PO ONE (11:13)
--- NOTE | 2017-11-06 11:19 | PN ---
Progress Note - Progress Note Date of Service: 11/06/17 SOAP: Subjective: []Feels much better than yesterday, though still weak. Still requiring FiO2 today. Coughing more and was able to produce sputum sample. Large hematoma to right hand following IV attempt yesterday. Medications: Acetaminophen (Tylenol Tab*) 650 mg PO Q6H PRN PRN Reason: FEVER/PAIN Last Admin: 10/26/17 02:30 Dose: 650 mg Albuterol/Ipratropium (Duoneb (Albuterol 2.5 Mg/Ipratropium 0.5 Mg)) 1 neb INH Q6H PRN PRN Reason: SOB/WHEEZING Last Admin: 11/05/17 21:30 Dose: 1 neb Aspirin (Aspirin Tab*) 325 mg PO ONCE ONE Stop: 11/06/17 11:14 Atorvastatin Calcium (Lipitor*) 10 mg PO BEDTIME [facility] Last Admin: 11/05/17 21:23 Dose: 10 mg Benzonatate (Tessalon Cap*) 100 mg PO BID PRN PRN Reason: COUGH Last Admin: 11/04/17 21:57 Dose: 100 mg Cetirizine HCl (Zyrtec*) 10 mg PO DAILY [facility]; Protocol Last Admin: 11/06/17 10:15 Dose: 10 mg Cholecalciferol (Vitamin D Tab*) 1,000 units PO DAILY [facility] Last Admin: 11/06/17 10:16 Dose: 1,000 units Clotrimazole (Mycelex Michael*) 10 mg PO FIVE TIMES DAILY [facility] Last Admin: 11/06/17 06:15 Dose: 10 mg Cyanocobalamin (Vitamin B12 Tab*) 1,000 mcg PO EVERY OTHER DAY [facility] Last Admin: 11/05/17 09:38 Dose: 1,000 mcg Device (Tiotropium Inhaler Device*) 1 each INH .USE w/ SPIRIVA CAPS [facility] Diltiazem HCl (Cardizem Tab*) 60 mg PO Q6HR [facility] Docusate Sodium (Colace Cap*) 100 mg PO BID PRN PRN Reason: CONSTIPATION Fluoxetine HCl (Prozac Cap*) 60 mg PO DAILY [facility] Last Admin: 11/06/17 10:14 Dose: 60 mg Fluticasone Propionate (Flonase Nasal [place] 50mcg*) 2 spray BOTH NARES DAILY [facility] Last Admin: 11/06/17 10:17 Dose: 2 spray Guaifenesin (Mucinex*) 1,200 mg PO BID [facility] Last Admin: 11/06/17 09:18 Dose: 1,200 mg Hydralazine HCl (Apresoline Iv*) 5 mg IV SLOW PU Q6H PRN PRN Reason: BLOOD PRESSURE Last Admin: 11/05/17 00:02 Dose: 5 mg Hydroxyurea (Hydrea Cap*) 1,000 mg PO DAILY [facility] Last Admin: 11/06/17 10:11 Dose: 1,000 mg Vancomycin HCl 750 mg/ Sodium (Chloride) 250 mls @ 166.667 mls/hr IVPB Q12H [facility] Last Admin: 11/06/17 06:15 Dose: 166.667 mls/hr Meropenem (Merrem 500mg Premix(*)) 500 mg in 50 mls @ 100 mls/hr IV Q8H [facility] Last Admin: 11/06/17 04:00 Dose: 100 mls/hr Levothyroxine Sodium (Synthroid Tab*) 112 mcg PO 0600 [facility] Last Admin: 11/06/17 06:15 Dose: 112 mcg Lisinopril (Prinivil Tab*) 40 mg PO DAILY [facility] Last Admin: 11/06/17 09:17 Dose: 40 mg Loperamide HCl (Imodium Cap*) 2 mg PO TID PRN PRN Reason: DIARRHEA Lorazepam (Ativan Tab(*)) 0.5 mg PO Q4H PRN PRN Reason: ANXIETY Magnesium Oxide (Magox 400 Tab*) 400 mg PO DAILY [facility] Last Admin: 11/06/17 10:16 Dose: 400 mg Methylprednisolone Sodium Succinate (Solu-Medrol 40 Mg) 40 mg IV Q12H [facility] Mometasone Furoate/Formoterol Fumar (Dulera 200/5 Mdi*) 2 puff INH BID [facility]; Protocol Last Admin: 11/06/17 09:57 Dose: 2 puff Montelukast Sodium (Singulair Tab*) 10 mg PO BEDTIME [facility] Last Admin: 11/05/17 21:23 Dose: 10 mg Morphine Sulfate (Morphine Vial*) 2 mg IV Q6H PRN PRN Reason: PAIN - MILD Last Admin: 11/05/17 12:10 Dose: 2 mg Multivitamins/Minerals (Theragran/Minerals Tab*) 1 tab PO DAILY [facility] Last Admin: 11/06/17 10:11 Dose: 1 tab Nystatin (Nystatin Top Powder*) 1 applic TOPICAL TID [facility] Last Admin: 11/06/17 11:11 Dose: Not Given Omeprazole (Prilosec Cap*) 20 mg PO 0730 [facility] Last Admin: 11/06/17 07:38 Dose: 20 mg Ondansetron HCl (Zofran 40 Mg Vial*) 4 mg IV Q6H PRN PRN Reason: NAUSEA Pharmacy Consult (Vancomycin Per Pharmacy*) 1 note FOLLOW UP .VANC PER PHARMACY [facility] Pharmacy Profile Note (Vancomycin Trough Check) 1 note FOLLOW UP 529 ONE Stop: 11/08/17 05:31 Rivaroxaban (Xarelto(*)) 20 mg PO DAILY [facility] Last Admin: 11/06/17 10:08 Dose: 20 mg Tiotropium [place] (Spiriva Cap.Inh*) 1 cap INH DAILY [facility] Last Admin: 11/06/17 09:56 Dose: 1 cap.inh Objective: [] Vital Signs Temp Pulse Resp BP Pulse Ox 99.8 F 104 21 162/55 96 11/06/17 07:44 11/06/17 10:01 11/06/17 10:01 11/06/17 10:01 11/06/17 10:01 A&Ox3, EOMI, PERRLA, LOPEZ, neuro grossly non-focal HRI, slightly tachy LS dim without wheeze noted today Large hematoma right hand up arm Laboratory Results - last 24 hr 11/06/17 11/06/17 04:15 04:15 WBC 28.9 H RBC 2.44 L Hgb 8.4 L Hct 28 L MCV 114 H MCH 35 H MCHC 30 L RDW 23 H Plt Count 1114 H D MPV 9.4 Sodium 139 Potassium 4.1 Chloride 106 Carbon Dioxide 26 Anion Gap 7 BUN 12 Creatinine 0.79 Est GFR ( Amer) 84.9 Est GFR (Non-Af Amer) 70.2 BUN/Creatinine Ratio 15.2 Glucose 157 H Calcium 8.3 L Assessment: []77 yo female currently in the ICU d/t respiratory failure now improving. In terms of her ET she is showing slow improvement with HU 1000 mg qday and we will continue to follow closely. Plan: []1. Resp. Distress: management as per hospitalist and intesivist, case reviewed with Dr. Rios 2. Thrombocytosis: plt. remain >1million therefore give 325 mg ASA PO x1 today 3. Anemia of chronic disease: with associated functional iron deficiency. Will plan iron infusions, however with acute illness I will hold off for now, follow daily labs and recommend transfusion hmg<8
[2017-11-06] MEDS: Diltiazem TAB* 60 MG PO SCH ×3 (11:40→23:38)
[2017-11-06] MEDS: Montelukast Sodium TAB* 10 MG PO SCH (20:26)
[2017-11-06] MEDS: Atorvastatin* 10 MG TAB PO SCH (20:26)
[2017-11-06] MEDS: Albuterol/Ipratropium NEB.SOL* Albuterol 2.5 MG/Ipratropium 0.5 MG 3 ML INH PRN (20:55)
[2017-11-06] MEDS: LORazepam TAB(*) 0.5 MG PO PRN (23:38)
[2017-11-07] MEDS: Meropenem 500MG PREMIX(*) 500 MG/50 ML BAG IV SCH ×3 (04:15→20:40)
[2017-11-07 05:33] LABS: Hematocrit 27 % (35-47); Hemoglobin 8.1 g/dl (12.0-16.0); Mean Corpuscular HGB Conc 30 g/dl (31-36); Mean Corpuscular Hemoglobin 34 pg (27-31); Mean Corpuscular Volume 114 fL (80-97); Mean Platelet Volume 9.8 um3 (7.4-10.4); Platelet Count 1223 10^3/ul (150-450); Red Blood Count 2.37 10^6/ul (4.00-5.40); Red Cell Distribution Width 24 % (10.5-15); White Blood Count 31.4 10^3/ul (3.5-10.8)
[2017-11-07] MEDS: Diltiazem TAB* 60 MG PO SCH ×4 (05:52→23:02)
[2017-11-07] MEDS: Levothyroxine TAB* 112 MCG TAB PO SCH (05:52)
[2017-11-07] MEDS: Vancomycin(*) 750 MG in NS 0.9% 250 ML* 250 ML IVPB SCH ×2 (05:52→18:23)
[2017-11-07] MEDS: Clotrimazole TROCHE* 10 MG TROCHE PO SCH ×5 (05:52→23:02)
[2017-11-07 05:54] LABS: EGFR Non-African American 67.2 (>60)
--- NOTE | 2017-11-07 07:23 | RAD ---
INDICATION: Respiratory failure COMPARISON: November 05, 2017 TECHNIQUE: An AP portable view obtained at 0600 hours is submitted. FINDINGS: Bones/Soft Tissues: There are no acute bony findings. Cardiomediastinal: The cardiomediastinal silhouette is normal in size. Lungs: There are chronic interstitial changes lung bases with alveolar change right lung base. The findings are stable. There is hyperinflation. Pleura: There are no pleural effusions. Other: None IMPRESSION: CHRONIC BASILAR INTERSTITIAL CHANGES. HYPERINFLATION.
[2017-11-07] MEDS: Rivaroxaban TAB(*) 20 MG TAB PO SCH (08:43)
[2017-11-07] MEDS: Cholecalciferol TAB* 1000 UNITS PO SCH (08:43)
[2017-11-07] MEDS: guaiFENesin ER TAB 600 MG PO SCH ×2 (08:43→22:07)
[2017-11-07] MEDS: Cyanocobalamin TAB* 500 MCG PO SCH (08:43)
[2017-11-07] MEDS: Cetirizine* 10 MG TAB PO SCH (08:43)
[2017-11-07] MEDS: Omeprazole CAP* 20 MG PO SCH (08:43)
[2017-11-07] MEDS: Magnesium Oxide TAB* 400 MG PO SCH (08:43)
[2017-11-07] MEDS: FLUoxetine CAP* 20 MG PO SCH (08:44)
[2017-11-07] MEDS: Lisinopril TAB* 10 MG PO SCH (08:44)
[2017-11-07] MEDS: Multivitamins/Minerals TAB PO SCH (08:44)
[2017-11-07] MEDS: HydroxyUREA CAP* 500 MG CAP PO SCH (08:47)
[2017-11-07] MEDS: Fluticasone NASAL SPRAY 50MCG* 16 gm SPRAY BTL BOTH NARES SCH (08:51)
[2017-11-07] MEDS: Nystatin TOP POWDER* 15 GM BTL TOPICAL SCH ×3 (08:51→22:07)
[2017-11-07] MEDS: Mometasone/Formoter 200/5 MDI INH SCH ×2 (09:20→19:10)
[2017-11-07] MEDS: Tiotropium CAP.INH* CAP.INH/18 MCG (USE ORDER SET !) INH SCH (09:20)
--- NOTE | 2017-11-07 10:47 | PN ---
Subjective Date of Service: 11/07/17 Interval History: Pt feels " a little better today" Family History: Unchanged from Admission Social History: Unchanged from Admission Past Medical History: Unchanged from Admission Objective Active Medications: Acetaminophen (Tylenol Tab*) 650 mg PO Q6H PRN PRN Reason: FEVER/PAIN Last Admin: 10/26/17 02:30 Dose: 650 mg Albuterol/Ipratropium (Duoneb (Albuterol 2.5 Mg/Ipratropium 0.5 Mg)) 1 neb INH Q6H PRN PRN Reason: SOB/WHEEZING Last Admin: 11/06/17 20:55 Dose: 1 neb Atorvastatin Calcium (Lipitor*) 10 mg PO BEDTIME [facility] Last Admin: 11/06/17 20:26 Dose: 10 mg Benzonatate (Tessalon Cap*) 100 mg PO BID PRN PRN Reason: COUGH Last Admin: 11/04/17 21:57 Dose: 100 mg Cetirizine HCl (Zyrtec*) 10 mg PO DAILY [facility]; Protocol Last Admin: 11/07/17 08:43 Dose: 10 mg Cholecalciferol (Vitamin D Tab*) 1,000 units PO DAILY [facility] Last Admin: 11/07/17 08:43 Dose: 1,000 units Clotrimazole (Mycelex Michael*) 10 mg PO FIVE TIMES DAILY [facility] Last Admin: 11/07/17 05:52 Dose: 10 mg Cyanocobalamin (Vitamin B12 Tab*) 1,000 mcg PO EVERY OTHER DAY [facility] Last Admin: 11/07/17 08:43 Dose: 1,000 mcg Device (Tiotropium Inhaler Device*) 1 each INH .USE w/ SPIRIVA CAPS [facility] Diltiazem HCl (Cardizem Tab*) 60 mg PO Q6HR [facility] Last Admin: 11/07/17 05:52 Dose: 60 mg Docusate Sodium (Colace Cap*) 100 mg PO BID PRN PRN Reason: CONSTIPATION Last Admin: 11/06/17 18:17 Dose: 100 mg Fluoxetine HCl (Prozac Cap*) 60 mg PO DAILY [facility] Last Admin: 11/07/17 08:44 Dose: 60 mg Fluticasone Propionate (Flonase Nasal [place] 50mcg*) 2 spray BOTH NARES DAILY [facility] Last Admin: 11/07/17 08:51 Dose: 2 spray Furosemide (Lasix Tab*) 20 mg PO MOWEFR [facility] Guaifenesin (Mucinex*) 1,200 mg PO BID [facility] Last Admin: 11/07/17 08:43 Dose: 1,200 mg Hydralazine HCl (Apresoline Iv*) 5 mg IV SLOW PU Q6H PRN PRN Reason: BLOOD PRESSURE Last Admin: 11/05/17 00:02 Dose: 5 mg Hydroxyurea (Hydrea Cap*) 1,000 mg PO DAILY [facility] Last Admin: 11/07/17 08:47 Dose: 1,000 mg Vancomycin HCl 750 mg/ Sodium (Chloride) 250 mls @ 166.667 mls/hr IVPB Q12H [facility] Last Admin: 11/07/17 05:52 Dose: 166.667 mls/hr Meropenem (Merrem 500mg Premix(*)) 500 mg in 50 mls @ 100 mls/hr IV Q8H [facility] Last Admin: 11/07/17 04:15 Dose: 100 mls/hr Levothyroxine Sodium (Synthroid Tab*) 112 mcg PO 0600 [facility] Last Admin: 11/07/17 05:52 Dose: 112 mcg Lisinopril (Prinivil Tab*) 40 mg PO DAILY [facility] Last Admin: 11/07/17 08:44 Dose: 40 mg Loperamide HCl (Imodium Cap*) 2 mg PO TID PRN PRN Reason: DIARRHEA Lorazepam (Ativan Tab(*)) 0.5 mg PO Q4H PRN PRN Reason: ANXIETY Last Admin: 11/06/17 23:38 Dose: 0.5 mg Magnesium Oxide (Magox 400 Tab*) 400 mg PO DAILY [facility] Last Admin: 11/07/17 08:43 Dose: 400 mg Methylprednisolone Sodium Succinate (Solu-Medrol 40 Mg) 40 mg IV Q12H [facility] Last Admin: 11/06/17 22:58 Dose: 40 mg Mometasone Furoate/Formoterol Fumar (Dulera 200/5 Mdi*) 2 puff INH BID [facility]; Protocol Last Admin: 11/06/17 20:55 Dose: 2 puff Montelukast Sodium (Singulair Tab*) 10 mg PO BEDTIME [facility] Last Admin: 11/06/17 20:26 Dose: 10 mg Morphine Sulfate (Morphine Vial*) 2 mg IV Q6H PRN PRN Reason: PAIN - MILD Last Admin: 11/05/17 12:10 Dose: 2 mg Multivitamins/Minerals (Theragran/Minerals Tab*) 1 tab PO DAILY [facility] Last Admin: 11/07/17 08:44 Dose: 1 tab Nystatin (Nystatin Top Powder*) 1 applic TOPICAL TID [facility] Last Admin: 11/07/17 08:51 Dose: 1 applic Omeprazole (Prilosec Cap*) 20 mg PO 0730 [facility] Last Admin: 11/07/17 08:43 Dose: 20 mg Ondansetron HCl (Zofran 40 Mg Vial*) 4 mg IV Q6H PRN PRN Reason: NAUSEA Pharmacy Consult (Vancomycin Per Pharmacy*) 1 note FOLLOW UP .VANC PER PHARMACY [facility] Pharmacy Profile Note (Vancomycin Trough Check) 1 note FOLLOW UP 529 ONE Stop: 11/08/17 05:31 Rivaroxaban (Xarelto(*)) 20 mg PO DAILY [facility] Last Admin: 11/07/17 08:43 Dose: 20 mg Tiotropium [place] (Spiriva Cap.Inh*) 1 cap INH DAILY [facility] Last Admin: 11/06/17 09:56 Dose: 1 cap.inh Vital Signs - 8 hr 11/07/17 11/07/17 11/07/17 02:46 02:49 03:00 Temperature Pulse Rate 86 91 Respiratory 23 23 27 Rate Blood Pressure 131/69 154/72 (mmHg) O2 Sat by Pulse 96 96 Oximetry 11/07/17 11/07/17 11/07/17 03:10 03:23 04:00 Temperature 97.9 F Pulse Rate 76 Respiratory 24 23 Rate Blood Pressure 153/71 (mmHg) O2 Sat by Pulse 97 Oximetry 11/07/17 11/07/17 11/07/17 05:00 05:01 05:56 Temperature Pulse Rate 78 71 Respiratory 22 21 19 Rate Blood Pressure 158/76 (mmHg) O2 Sat by Pulse 98 98 Oximetry 11/07/17 11/07/17 11/07/17 06:00 06:04 06:17 Temperature Pulse Rate 82 84 Respiratory 24 24 23 Rate Blood Pressure 182/88 175/84 (mmHg) O2 Sat by Pulse 97 97 Oximetry 11/07/17 11/07/17 11/07/17 07:00 07:01 07:36 Temperature 98.9 F Pulse Rate 69 75 Respiratory 24 22 Rate Blood Pressure 157/70 (mmHg) O2 Sat by Pulse 96 97 Oximetry 11/07/17 11/07/17 11/07/17 08:00 08:01 09:00 Temperature Pulse Rate 79 81 80 Respiratory 22 21 26 Rate Blood Pressure 163/72 (mmHg) O2 Sat by Pulse 97 98 96 Oximetry 11/07/17 11/07/17 09:01 10:00 Temperature Pulse Rate 87 Respiratory 25 30 Rate Blood Pressure 168/84 (mmHg) O2 Sat by Pulse 96 Oximetry Oxygen Devices in Use Now: High Flow Heated Nasal Cannula Appearance: 77 yo F in NAD, aAOx3 Eyes: No Scleral Icterus, PERRLA Ears/Nose/Mouth/Throat: NL Teeth, Lips, Gums, Mucous Membranes Moist Neck: NL Appearance and Movements; NL JVP, Trachea Midline Respiratory: Symmetrical Chest Expansion and Respiratory Effort, - - crackles at b/l bases, Rhonchi RML Cardiovascular: NL Sounds; No Murmurs; No JVD, RRR Abdominal: NL Sounds; No Tenderness; No Distention, No Hepatosplenomegaly Lymphatic: No Cervical Adenopathy Extremities: No Edema, No Clubbing, Cyanosis Skin: No Nodules or Sclerosis, - - ecchymoses on b/l 1 st toes Neurological: Alert and Oriented x 3, NL Muscle Strength and Tone Result Diagrams: 11/07/17 05:17 11/07/17 05:17 Microbiology and Other Data: Microbiology 10/22/17 17:42 Aerobic Blood Culture - Preliminary Blood Venous No Growth Day 2 Anaerobic Blood Culture - Preliminary No Growth Day 2 10/22/17 17:42 Aerobic Blood Culture - Preliminary Blood Venous No Growth Day 2 Anaerobic Blood Culture - Preliminary No Growth Day 2 Assess/Plan/Problems-Billing ASSESSMENT: Ms Keita is a 77 yo F who has a h/o COPD and chronic hypoxic respiratory failure, afib, HTN, HLD, and chronic leukocytosis and thrombocytopenia who presented to the ER with c/o severe SOB and was admitted for a COPD exacerbation with stay c/b suspected hospital acquired PNA - Patient Problems (1) Respiratory failure Comment: Acute on chronic hypoxemic resp. failure( at home on 3 L 02) was improving from COPD exacerbation but then worsening again. Back in acute respiratory distress on 11/05/17-transfered to ICU on Vapotherm, now stable. Zosyn changed to meropenem. Today improving. Solu Medrol IV to cont for now. appreciate Dr. Rios's and Francisco's imput. (2) Diastolic CHF Comment: Pt is on Lasix PO 3x/week at home. will restart (3) COPD exacerbation Comment: Marked leukocytosis likely due to steroids, but with pt appearing septic again on 11/05/17 blood cx ordered and antibiotcs changed from Zosyn and Vanc to meropenem and Vanc (4) Essential thrombocythemia Comment: -hydrea restarted 11/02, d/w DR. Snyder, due to marked Plt elevation increased hydroxyurea to 1000 mg on 11/04/17 (5) Atrial fibrillation Comment: -currently back in NSR - Continue xarelto. Atenolol switched to cardizem (short acting) by Dr. Rios (6) DVT prophylaxis Comment: - Xarelto Status and Disposition: Inpatient.
[2017-11-07] MEDS: methylPREDNISolone SOD 40 MG* 1 ML VIAL IV SCH ×2 (10:59→23:03)
--- NOTE | 2017-11-07 11:25 | PN ---
Progress Note - Progress Note Date of Service: 11/07/17 - Pulm f/u note Note: Pt seen and examined at bedside, Pt reports feeling better this am. Wanting to ambulate. Denies significant cough or sputum. FiO2 requirement coming down Active Medications Generic Name Dose Route Start Last Admin Trade Name Freq PRN Reason Stop Dose Admin Acetaminophen 650 mg 10/22/17 21:18 10/26/17 02:30 Tylenol Tab* PO 650 mg Q6H PRN Administration FEVER/PAIN Albuterol/Ipratropium 1 neb 11/01/17 16:06 11/06/17 20:55 Duoneb (Albuterol 2.5 Mg/Ipratropium 0.5 Mg) INH 1 neb Q6H PRN Administration SOB/WHEEZING Atorvastatin Calcium 10 mg 10/23/17 21:00 11/06/17 20:26 Lipitor* PO 10 mg BEDTIME SONJA Administration Benzonatate 100 mg 10/22/17 21:18 11/04/17 21:57 Tessalon Cap* PO 100 mg BID PRN Administration COUGH Cetirizine HCl 10 mg 10/23/17 09:00 11/07/17 08:43 Zyrtec* PO 10 mg DAILY SONJA Administration Protocol Cholecalciferol 1,000 units 10/23/17 09:00 11/07/17 08:43 Vitamin D Tab* PO 1,000 units DAILY SONJA Administration Clotrimazole 10 mg 10/22/17 22:00 11/07/17 10:59 Mycelex Michael* PO 10 mg FIVE TIMES DAILY SONJA Administration Cyanocobalamin 1,000 mcg 10/24/17 09:00 11/07/17 08:43 Vitamin B12 Tab* PO 1,000 mcg EVERY OTHER DAY SONJA Administration Device 1 each 10/25/17 12:00 Tiotropium Inhaler Device* INH .USE w/ SPIRIVA CAPS SONJA Diltiazem HCl 60 mg 11/06/17 12:00 11/07/17 05:52 Cardizem Tab* PO 60 mg Q6HR [facility]ONJA Administration Docusate Sodium 100 mg 10/22/17 21:26 11/06/17 18:17 Colace Cap* PO 100 mg BID PRN Administration CONSTIPATION Fluoxetine HCl 60 mg 10/31/17 09:00 11/07/17 08:44 Prozac Cap* PO 60 mg DAILY [facility]ONJA Administration Fluticasone Propionate 2 spray 10/23/17 09:00 11/07/17 08:51 Flonase Nasal [place] 50mcg* BOTH NARES 2 spray DAILY [facility]ONJA Administration Furosemide 20 mg 11/07/17 11:00 Lasix Tab* PO MOWEFR [facility]ONJA Guaifenesin 1,200 mg 10/23/17 09:00 11/07/17 08:43 Mucinex* PO 1,200 mg BID SONJA Administration Hydralazine HCl 5 mg 10/28/17 12:48 11/05/17 00:02 Apresoline Iv* IV SLOW PU 5 mg Q6H PRN Administration BLOOD PRESSURE Hydroxyurea 1,000 mg 11/05/17 09:00 11/07/17 08:47 Hydrea Cap* PO 1,000 mg DAILY [facility]ONJA Administration Vancomycin HCl 750 mg/ Sodium 250 mls @ 166.667 mls/hr 11/03/17 06:00 05:52 Chloride IVPB 166.667 mls/hr Q12H [facility]ONJA Administration Meropenem 500 mg in 50 mls @ 100 mls/hr 11/05/17 12:00 11/07/17 04:15 Merrem 500mg Premix(*) IV 100 mls/hr Q8H [facility]ONJA Administration Levothyroxine Sodium 112 mcg 10/23/17 06:00 11/07/17 05:52 Synthroid Tab* PO 112 mcg 0600 SONJA Administration Lisinopril 40 mg 10/23/17 09:00 11/07/17 08:44 Prinivil Tab* PO 40 mg DAILY [facility]ONJA Administration Loperamide HCl 2 mg 10/22/17 21:26 Imodium Cap* PO TID PRN DIARRHEA Lorazepam 0.5 mg 11/05/17 10:11 11/06/17 23:38 Ativan Tab(*) PO 0.5 mg Q4H PRN Administration ANXIETY Magnesium Oxide 400 mg 10/23/17 09:00 11/07/17 08:43 Magox 400 Tab* PO 400 mg DAILY [facility]ONJA Administration Methylprednisolone Sodium Succinate 40 mg 11/06/17 11:00 11/07/17 10:59 Solu-Medrol 40 Mg IV 40 mg Q12H [facility]ONJA Administration Mometasone Furoate/Formoterol Fumar 2 puff 10/23/17 09:00 11/07/17 09:20 Dulera 200/5 Mdi* INH 2 puff BID SONJA Administration Protocol Montelukast Sodium 10 mg 10/23/17 21:00 11/06/17 20:26 Singulair Tab* PO 10 mg BEDTIME [facility]ONJA Administration Morphine Sulfate 2 mg 11/05/17 11:51 11/05/17 12:10 Morphine Vial* IV 2 mg Q6H PRN Administration PAIN - MILD Multivitamins/Minerals 1 tab 10/23/17 09:00 11/07/17 08:44 Theragran/Minerals Tab* PO 1 tab DAILY [facility]ONJA Administration Nystatin 1 applic 11/05/17 14:00 11/07/17 08:51 Nystatin Top Powder* TOPICAL 1 applic TID [facility]ONJA Administration Omeprazole 20 mg 10/23/17 07:30 11/07/17 08:43 Prilosec Cap* PO 20 mg 0730 SON[facility] Administration Ondansetron HCl 4 mg 10/22/17 21:18 Zofran 40 Mg Vial* IV Q6H PRN NAUSEA Pharmacy Consult 1 note 10/31/17 18:00 Vancomycin Per Pharmacy* FOLLOW UP .VANC PER PHARMACY [facility] Pharmacy Profile Note 1 note 11/08/17 05:30 Vancomycin Trough Check FOLLOW UP 11/08/17 05:31 0530 ONE Rivaroxaban 20 mg 10/23/17 09:00 11/07/17 08:43 Xarelto(*) PO 20 mg DAILY SONJA Administration Tiotropium [place] 1 cap 10/26/17 09:00 11/07/17 09:20 Spiriva Cap.Inh* INH 1 cap.inh DAILY [facility]ON[facility] Administration Vital Signs Temp Pulse Resp BP Pulse Ox 98.9 F 87 30 168/84 96 11/07/17 07:36 11/07/17 09:01 11/07/17 10:00 11/07/17 09:01 11/07/17 09:01 O/E: Pt in NAD, sitting up in chair HEENt: PERRLA, No JVD Lungs: Diminished air entry, decreased at bases, no wheeze CVS: S1, S2+ Abd: Soft, BS+ Ext: Normal ROM Skin: Bruise on extremities from IV insertion Neuro: No focal defecits Laboratory Results - last 24 hr 11/07/17 11/07/17 05:17 05:17 WBC 31.4 H RBC 2.37 L Hgb 8.1 L Hct 27 L MCV 114 H MCH 34 H MCHC 30 L RDW 24 H Plt Count 1223 H D MPV 9.8 Sodium 139 Potassium 4.1 Chloride 106 Carbon Dioxide 28 Anion Gap 5 BUN 15 Creatinine 0.82 Est GFR ( Amer) 81.4 Est GFR (Non-Af Amer) 67.2 BUN/Creatinine Ratio 18.3 Glucose 205 H Calcium 8.6 I/R: 77y F with history of COPD on 2-3L home O2, myeloproliferative disorder/ essential thrombocytosis, hypothyroidism, Afib, HLD, HTN, h/o Pneumonia and PE in past, anxiety disorder; recent hospitalization 09/2017 for COPD exacerbation, sepsis/pneumonia, returned to ER 10/22 for SOB, temp 100.3, was admitted for COPD exacerbation and PNA. Was also found to have significant anemia, attributed to hydrea side effect, Medication was held, thrombocytosis worsened requiring restarting and increase in dose, also with worsening hypoxemia requiring high flow, increasing WBC counts, antibiotic coverage broadened, septic w/u repeated, CT chest showed RML consolidation, mucus plugging in areas of bronchiectasis in left lower lobe. Slight clinical improvement Sputum cx showed yeast, likely oral colonization, bl cx negative to date Leucocytosis and thrombocytosis worsening Hemodynamically stable A.fib, rate in high 90`s while on Cardizem 60 q 6h and Xarelto Received ASA given thrombocytosis On Meropenem and Vanco Restarted home dose of Lasix Solumedrol 40mg q 12hrs, likely alos contributing to leucocytosis, will change to 30mg q 12 hrs tomorrow Will try metanebs, incentive spirometry Hydrea dose as per oncology C/w FiO2 taper as tolerated OOB to chair D/w Dr Ballard
--- NOTE | 2017-11-07 11:51 | PN ---
Progress Note - Progress Note Date of Service: 11/07/17 SOAP: Subjective: []Feels much better. On vapotherm and helping. No fevers. Energy is up. Has been bruising from IVs. No nose bleeds, oral bleeding. Acetaminophen (Tylenol Tab*) 650 mg PO Q6H PRN PRN Reason: FEVER/PAIN Last Admin: 10/26/17 02:30 Dose: 650 mg Albuterol/Ipratropium (Duoneb (Albuterol 2.5 Mg/Ipratropium 0.5 Mg)) 1 neb INH Q6H PRN PRN Reason: SOB/WHEEZING Last Admin: 11/06/17 20:55 Dose: 1 neb Atorvastatin Calcium (Lipitor*) 10 mg PO BEDTIME [facility] Last Admin: 11/06/17 20:26 Dose: 10 mg Benzonatate (Tessalon Cap*) 100 mg PO BID PRN PRN Reason: COUGH Last Admin: 11/04/17 21:57 Dose: 100 mg Cetirizine HCl (Zyrtec*) 10 mg PO DAILY [facility]; Protocol Last Admin: 11/07/17 08:43 Dose: 10 mg Cholecalciferol (Vitamin D Tab*) 1,000 units PO DAILY [facility] Last Admin: 11/07/17 08:43 Dose: 1,000 units Clotrimazole (Mycelex Michael*) 10 mg PO FIVE TIMES DAILY [facility] Last Admin: 11/07/17 10:59 Dose: 10 mg Cyanocobalamin (Vitamin B12 Tab*) 1,000 mcg PO EVERY OTHER DAY [facility] Last Admin: 11/07/17 08:43 Dose: 1,000 mcg Device (Tiotropium Inhaler Device*) 1 each INH .USE w/ SPIRIVA CAPS [facility] Diltiazem HCl (Cardizem Tab*) 60 mg PO Q6HR [facility] Last Admin: 11/07/17 05:52 Dose: 60 mg Docusate Sodium (Colace Cap*) 100 mg PO BID PRN PRN Reason: CONSTIPATION Last Admin: 11/06/17 18:17 Dose: 100 mg Fluoxetine HCl (Prozac Cap*) 60 mg PO DAILY [facility] Last Admin: 11/07/17 08:44 Dose: 60 mg Fluticasone Propionate (Flonase Nasal [place] 50mcg*) 2 spray BOTH NARES DAILY [facility] Last Admin: 11/07/17 08:51 Dose: 2 spray Furosemide (Lasix Tab*) 20 mg PO MOWEFR [facility] Guaifenesin (Mucinex*) 1,200 mg PO BID [facility] Last Admin: 11/07/17 08:43 Dose: 1,200 mg Hydralazine HCl (Apresoline Iv*) 5 mg IV SLOW PU Q6H PRN PRN Reason: BLOOD PRESSURE Last Admin: 11/05/17 00:02 Dose: 5 mg Hydroxyurea (Hydrea Cap*) 1,000 mg PO DAILY [facility] Last Admin: 11/07/17 08:47 Dose: 1,000 mg Vancomycin HCl 750 mg/ Sodium (Chloride) 250 mls @ 166.667 mls/hr IVPB Q12H [facility] Last Admin: 11/07/17 05:52 Dose: 166.667 mls/hr Meropenem (Merrem 500mg Premix(*)) 500 mg in 50 mls @ 100 mls/hr IV Q8H [facility] Last Admin: 11/07/17 11:39 Dose: 100 mls/hr Levothyroxine Sodium (Synthroid Tab*) 112 mcg PO 0600 [facility] Last Admin: 11/07/17 05:52 Dose: 112 mcg Lisinopril (Prinivil Tab*) 40 mg PO DAILY [facility] Last Admin: 11/07/17 08:44 Dose: 40 mg Loperamide HCl (Imodium Cap*) 2 mg PO TID PRN PRN Reason: DIARRHEA Lorazepam (Ativan Tab(*)) 0.5 mg PO Q4H PRN PRN Reason: ANXIETY Last Admin: 11/06/17 23:38 Dose: 0.5 mg Magnesium Oxide (Magox 400 Tab*) 400 mg PO DAILY [facility] Last Admin: 11/07/17 08:43 Dose: 400 mg Methylprednisolone Sodium Succinate (Solu-Medrol 40 Mg) 40 mg IV Q12H [facility] Last Admin: 11/07/17 10:59 Dose: 40 mg Mometasone Furoate/Formoterol Fumar (Dulera 200/5 Mdi*) 2 puff INH BID [facility]; Protocol Last Admin: 11/07/17 09:20 Dose: 2 puff Montelukast Sodium (Singulair Tab*) 10 mg PO BEDTIME [facility] Last Admin: 11/06/17 20:26 Dose: 10 mg Morphine Sulfate (Morphine Vial*) 2 mg IV Q6H PRN PRN Reason: PAIN - MILD Last Admin: 11/05/17 12:10 Dose: 2 mg Multivitamins/Minerals (Theragran/Minerals Tab*) 1 tab PO DAILY [facility] Last Admin: 11/07/17 08:44 Dose: 1 tab Nystatin (Nystatin Top Powder*) 1 applic TOPICAL TID [facility] Last Admin: 11/07/17 08:51 Dose: 1 applic Omeprazole (Prilosec Cap*) 20 mg PO 07 [facility] Last Admin: 11/07/17 08:43 Dose: 20 mg Ondansetron HCl (Zofran 40 Mg Vial*) 4 mg IV Q6H PRN PRN Reason: NAUSEA Pharmacy Consult (Vancomycin Per Pharmacy*) 1 note FOLLOW UP .VANC PER PHARMACY [facility] Pharmacy Profile Note (Vancomycin Trough Check) 1 note FOLLOW UP 529 ONE Stop: 11/08/17 05:31 Rivaroxaban (Xarelto(*)) 20 mg PO DAILY [facility] Last Admin: 11/07/17 08:43 Dose: 20 mg Tiotropium [place] (Spiriva Cap.Inh*) 1 cap INH DAILY [facility] Last Admin: 11/07/17 09:20 Dose: 1 cap.inh Objective: [] Vital Signs Temp Pulse Resp BP Pulse Ox 98.6 F 87 30 168/84 96 11/07/17 11:26 11/07/17 09:01 11/07/17 10:00 11/07/17 09:01 11/07/17 09:01 HEENT - vapotherm, no oral lesions. pale Decreased BS, no wheezing, some crackles RRR S1S2 +BS, sitting non tender +1 YOLIE symetric AAOx 3 Assessment: []77 year old with essential thrombocytosis and COPD. Prolonged hospitalization with COPD and hospital aquired pnemonia. Now improving on vapotherm but has had persistent thrombocytosis and leukocytosis. I suspect that underlying ET exacerbated by inflammatory state and iron deficiency. Plan: []1. Will increase HU to 1500 mg po daily 2. Tx 1 U PRBC, would like to see Hgb > 9.0 3. Worried about increased bleeding and aquired [place] disease. Will decrease Xeralto to 10 mg po daily until plts < 1,000,000.
[2017-11-07] MEDS ORDERED: HydroxyUREA CAP* 500 MG CAP PO ONE (11:53)
[2017-11-07] MEDS: Furosemide TAB* 20 MG PO SCH (11:56)
[2017-11-07] MEDS: Albuterol/Ipratropium NEB.SOL* Albuterol 2.5 MG/Ipratropium 0.5 MG 3 ML INH PRN (19:10)
[2017-11-07] MEDS: Morphine VIAL* 4 MG/ML VIAL (1 ml vial) IV PRN (22:05)
[2017-11-07] MEDS: Montelukast Sodium TAB* 10 MG PO SCH (22:07)
[2017-11-07] MEDS: Atorvastatin* 10 MG TAB PO SCH (22:07)
[2017-11-08] MEDS: Meropenem 500MG PREMIX(*) 500 MG/50 ML BAG IV SCH ×3 (04:01→20:47)
[2017-11-08] MEDS: Morphine VIAL* 4 MG/ML VIAL (1 ml vial) IV PRN ×2 (04:01→16:54)
[2017-11-08 04:51] LABS: Hematocrit 34 % (35-47); Hemoglobin 10.2 g/dl (12.0-16.0); Mean Corpuscular HGB Conc 31 g/dl (31-36); Mean Corpuscular Hemoglobin 34 pg (27-31); Mean Corpuscular Volume 110 fL (80-97); Mean Platelet Volume 9.8 um3 (7.4-10.4); Platelet Count 1683 10^3/ul (150-450); Red Blood Count 3.05 10^6/ul (4.00-5.40); Red Cell Distribution Width 26 % (10.5-15); White Blood Count 41.2 10^3/ul (3.5-10.8)
[2017-11-08 05:06] LABS: EGFR Non-African American 71.2 (>60)
[2017-11-08] MEDS ORDERED: Vancomycin Trough Check NOTE FOLLOW UP ONE (05:30)
[2017-11-08] MEDS: Diltiazem TAB* 60 MG PO SCH ×3 (06:48→18:12)
[2017-11-08] MEDS: Levothyroxine TAB* 112 MCG TAB PO SCH (06:48)
[2017-11-08] MEDS: Omeprazole CAP* 20 MG PO SCH (06:48)
[2017-11-08] MEDS: Vancomycin(*) 750 MG in NS 0.9% 250 ML* 250 ML IVPB SCH (06:48)
[2017-11-08] MEDS: Clotrimazole TROCHE* 10 MG TROCHE PO SCH ×5 (06:48→21:53)
[2017-11-08] MEDS: Fluticasone NASAL SPRAY 50MCG* 16 gm SPRAY BTL BOTH NARES SCH (08:05)
[2017-11-08] MEDS: Nystatin TOP POWDER* 15 GM BTL TOPICAL SCH ×3 (08:06→21:53)
[2017-11-08] MEDS: Rivaroxaban TAB(*) 10 MG PO SCH (08:07)
[2017-11-08] MEDS: guaiFENesin ER TAB 600 MG PO SCH ×2 (08:09→20:47)
[2017-11-08] MEDS: Cholecalciferol TAB* 1000 UNITS PO SCH (08:09)
[2017-11-08] MEDS: FLUoxetine CAP* 20 MG PO SCH (08:09)
[2017-11-08] MEDS: Lisinopril TAB* 10 MG PO SCH (08:10)
[2017-11-08] MEDS: Cetirizine* 10 MG TAB PO SCH (08:10)
[2017-11-08] MEDS: Magnesium Oxide TAB* 400 MG PO SCH (08:10)
[2017-11-08] MEDS: Multivitamins/Minerals TAB PO SCH (08:10)
[2017-11-08] MEDS: Mometasone/Formoter 200/5 MDI INH SCH ×2 (08:16→20:06)
[2017-11-08] MEDS: Tiotropium CAP.INH* CAP.INH/18 MCG (USE ORDER SET !) INH SCH (08:16)
[2017-11-08] MEDS ORDERED: HydroxyUREA CAP* 500 MG CAP PO SCH (09:00)
--- NOTE | 2017-11-08 09:04 | PN ---
Subjective Date of Service: 11/08/17 Interval History: [place], nonproductive cough. OVerall feels somewhat beter today. No new c/o. Family History: Unchanged from Admission Social History: Unchanged from Admission Past Medical History: Unchanged from Admission Objective Active Medications: Acetaminophen (Tylenol Tab*) 650 mg PO Q6H PRN PRN Reason: FEVER/PAIN Last Admin: 10/26/17 02:30 Dose: 650 mg Albuterol/Ipratropium (Duoneb (Albuterol 2.5 Mg/Ipratropium 0.5 Mg)) 1 neb INH Q6H PRN PRN Reason: SOB/WHEEZING Last Admin: 11/07/17 19:10 Dose: 1 neb Atorvastatin Calcium (Lipitor*) 10 mg PO BEDTIME [facility] Last Admin: 11/07/17 22:07 Dose: 10 mg Benzonatate (Tessalon Cap*) 100 mg PO BID PRN PRN Reason: COUGH Last Admin: 11/04/17 21:57 Dose: 100 mg Cetirizine HCl (Zyrtec*) 10 mg PO DAILY [facility]; Protocol Last Admin: 11/08/17 08:10 Dose: 10 mg Cholecalciferol (Vitamin D Tab*) 1,000 units PO DAILY [facility] Last Admin: 11/08/17 08:09 Dose: 1,000 units Clotrimazole (Mycelex Michael*) 10 mg PO FIVE TIMES DAILY [facility] Last Admin: 11/08/17 06:48 Dose: 10 mg Cyanocobalamin (Vitamin B12 Tab*) 1,000 mcg PO EVERY OTHER DAY [facility] Last Admin: 11/07/17 08:43 Dose: 1,000 mcg Device (Tiotropium Inhaler Device*) 1 each INH .USE w/ SPIRIVA CAPS [facility] Diltiazem HCl (Cardizem Tab*) 60 mg PO Q6HR [facility] Last Admin: 11/08/17 06:48 Dose: 60 mg Docusate Sodium (Colace Cap*) 100 mg PO BID PRN PRN Reason: CONSTIPATION Last Admin: 11/06/17 18:17 Dose: 100 mg Fluoxetine HCl (Prozac Cap*) 60 mg PO DAILY [facility] Last Admin: 11/08/17 08:09 Dose: 60 mg Fluticasone Propionate (Flonase Nasal [place] 50mcg*) 2 spray BOTH NARES DAILY [facility] Last Admin: 11/08/17 08:05 Dose: 2 spray Furosemide (Lasix Tab*) 20 mg PO MOWEFR [facility]ONJA Last Admin: 11/07/17 11:56 Dose: 20 mg Guaifenesin (Mucinex*) 1,200 mg PO BID [facility] Last Admin: 11/08/17 08:09 Dose: 1,200 mg Hydralazine HCl (Apresoline Iv*) 5 mg IV SLOW PU Q6H PRN PRN Reason: BLOOD PRESSURE Last Admin: 11/05/17 00:02 Dose: 5 mg Hydroxyurea (Hydrea Cap*) 1,500 mg PO DAILY [facility] Last Admin: 11/08/17 08:08 Dose: 1,500 mg Vancomycin HCl 750 mg/ Sodium (Chloride) 250 mls @ 166.667 mls/hr IVPB Q12H [facility] Last Admin: 11/08/17 06:48 Dose: 100 mls/hr Meropenem (Merrem 500mg Premix(*)) 500 mg in 50 mls @ 100 mls/hr IV Q8H [facility] Last Admin: 11/08/17 04:01 Dose: 100 mls/hr Levothyroxine Sodium (Synthroid Tab*) 112 mcg PO 0600 [facility] Last Admin: 11/08/17 06:48 Dose: 112 mcg Lisinopril (Prinivil Tab*) 40 mg PO DAILY [facility] Last Admin: 11/08/17 08:10 Dose: 40 mg Loperamide HCl (Imodium Cap*) 2 mg PO TID PRN PRN Reason: DIARRHEA Lorazepam (Ativan Tab(*)) 0.5 mg PO Q4H PRN PRN Reason: ANXIETY Last Admin: 11/06/17 23:38 Dose: 0.5 mg Magnesium Oxide (Magox 400 Tab*) 400 mg PO DAILY [facility] Last Admin: 11/08/17 08:10 Dose: 400 mg Methylprednisolone Sodium Succinate (Solu-Medrol 40 Mg) 30 mg IV Q12H [facility] Mometasone Furoate/Formoterol Fumar (Dulera 200/5 Mdi*) 2 puff INH BID [facility]; Protocol Last Admin: 11/08/17 08:16 Dose: 2 puff Montelukast Sodium (Singulair Tab*) 10 mg PO BEDTIME [facility] Last Admin: 11/07/17 22:07 Dose: 10 mg Morphine Sulfate (Morphine Vial*) 2 mg IV Q6H PRN PRN Reason: PAIN - MILD Last Admin: 11/08/17 04:01 Dose: 2 mg Multivitamins/Minerals (Theragran/Minerals Tab*) 1 tab PO DAILY [facility] Last Admin: 11/08/17 08:10 Dose: 1 tab Nystatin (Nystatin Top Powder*) 1 applic TOPICAL TID [facility] Last Admin: 11/08/17 08:06 Dose: 1 applic Omeprazole (Prilosec Cap*) 20 mg PO 729 [facility] Last Admin: 11/08/17 06:48 Dose: 20 mg Ondansetron HCl (Zofran 40 Mg Vial*) 4 mg IV Q6H PRN PRN Reason: NAUSEA Pharmacy Consult (Vancomycin Per Pharmacy*) 1 note FOLLOW UP .VANC PER PHARMACY [facility] Rivaroxaban (Xarelto(*)) 10 mg PO DAILY [facility] Last Admin: 11/08/17 08:07 Dose: 10 mg Tiotropium [place] (Spiriva Cap.Inh*) 1 cap INH DAILY [facility] Last Admin: 11/08/17 08:16 Dose: 1 cap.inh Vital Signs - 8 hr 11/08/17 11/08/17 11/08/17 01:00 02:00 02:01 Temperature Pulse Rate 101 101 84 Respiratory 19 19 19 Rate Blood Pressure 159/67 164/57 (mmHg) O2 Sat by Pulse 96 96 96 Oximetry 11/08/17 11/08/17 11/08/17 03:00 03:30 04:00 Temperature 99.1 F Pulse Rate 90 84 118 Respiratory 19 21 34 Rate Blood Pressure 150/83 (mmHg) O2 Sat by Pulse 96 96 90 Oximetry 11/08/17 11/08/17 11/08/17 04:01 05:00 05:02 Temperature Pulse Rate 130 93 100 Respiratory 31 18 17 Rate Blood Pressure 206/132 239/188 179/89 (mmHg) O2 Sat by Pulse 91 95 95 Oximetry 11/08/17 11/08/17 11/08/17 06:00 07:20 08:13 Temperature 97.6 F Pulse Rate 103 Respiratory 20 25 Rate Blood Pressure (mmHg) O2 Sat by Pulse 91 Oximetry Oxygen Devices in Use Now: High Flow Heated Nasal Cannula Appearance: Alert, sitting on the edge of her ICU bed. In good spirits. Looks comfortable. Eyes: No Scleral Icterus Neck: NL Appearance and Movements; NL JVP, No Thyroid Enlargement, Masses Respiratory: Symmetrical Chest Expansion and Respiratory Effort, Clear to Percussion, - - markedly diminished BS BL Extremities: No Edema, No Clubbing, Cyanosis, - Skin: No Rash or Ulcers, No Nodules or Sclerosis, - Neurological: Alert and Oriented x 3, NL Sensation Result Diagrams: 11/08/17 04:16 11/08/17 04:16 Microbiology and Other Data: Microbiology 10/22/17 17:42 Aerobic Blood Culture - Preliminary Blood Venous No Growth Day 2 Anaerobic Blood Culture - Preliminary No Growth Day 2 10/22/17 17:42 Aerobic Blood Culture - Preliminary Blood Venous No Growth Day 2 Anaerobic Blood Culture - Preliminary No Growth Day 2 Assess/Plan/Problems-Billing ASSESSMENT: Ms Keita is a 77 yo F who has a h/o COPD and chronic hypoxic respiratory failure, afib, HTN, HLD, and chronic leukocytosis and thrombocytopenia who presented to the ER with c/o severe SOB and was admitted for a COPD exacerbation with stay c/b suspected hospital acquired PNA - Patient Problems (1) Respiratory failure Current Visit: Yes Status: Acute Code(s): J96.90 - RESPIRATORY FAILURE, UNSP , UNSP W HYPOXIA OR HYPERCAPNIA SNOMED Code(s): 174193957 Comment: On Vapotherm 15 L on 11/08. Slowly improvin. Reduce meylprednisolone to 30 mg q 12 hr 11/08. Discussed with Dr. Singh. (2) Essential thrombocythemia Current Visit: Yes Status: Acute Code(s): D47.3 - ESSENTIAL (HEMORRHAGIC) THROMBOCYTHEMIA SNOMED Code(s): 339041944 Comment: Hydroxyurea increased to 1500 mg on 11/07/17. Platelets 1683 11/08, hgb 10.2 after 1 U PRBC 11/07. (3) Atrial fibrillation Current Visit: Yes Status: Chronic Code(s): I48.91 - UNSPECIFIED ATRIAL FIBRILLATION SNOMED Code(s): 58272711 Comment: Rivaroxaban decreased to 10 mg until platelets <1,000,000. On monitor 11/08 looks like wandering atrial pacer. Change to XR diltiazem 11/09. (4) History of pulmonary embolus (PE) Current Visit: No Status: Chronic Code(s): Z86.711 - PERSONAL HISTORY OF PULMONARY EMBOLISM SNOMED Code(s): 055783668 Comment: - Continue xarelto, note reduced dose as above. (5) Hypothyroid Current Visit: No Status: Chronic Code(s): E03.9 - HYPOTHYROIDISM, UNSPECIFIED SNOMED Code(s): 74844103 Comment: - TSH 1.43 on 07/03/17 - Continue synthroid (6) Diastolic CHF Current Visit: Yes Status: Acute Code(s): I50.30 - UNSPECIFIED DIASTOLIC ( CONGESTIVE) HEART FAILURE SNOMED Code(s): 898441013 Comment: Pt is on Lasix PO 3x/week at home. Restarted 11/07. Status and Disposition: Inpatient.
[2017-11-08] MEDS: methylPREDNISolone SOD 40 MG* 1 ML VIAL IV SCH ×2 (10:16→20:47)
--- NOTE | 2017-11-08 10:40 | PN ---
Progress Note - Progress Note Date of Service: 11/08/17 SOAP: Subjective: []Breathing stable but still very difficult. SOB with any movement. Still doing well. Tolerating vapotherm. No fevers. Bruising on skin. Acetaminophen (Tylenol Tab*) 650 mg PO Q6H PRN PRN Reason: FEVER/PAIN Last Admin: 10/26/17 02:30 Dose: 650 mg Albuterol/Ipratropium (Duoneb (Albuterol 2.5 Mg/Ipratropium 0.5 Mg)) 1 neb INH Q6H PRN PRN Reason: SOB/WHEEZING Last Admin: 11/07/17 19:10 Dose: 1 neb Atorvastatin Calcium (Lipitor*) 10 mg PO BEDTIME [facility] Last Admin: 11/07/17 22:07 Dose: 10 mg Benzonatate (Tessalon Cap*) 100 mg PO BID PRN PRN Reason: COUGH Last Admin: 11/04/17 21:57 Dose: 100 mg Cetirizine HCl (Zyrtec*) 10 mg PO DAILY [facility]; Protocol Last Admin: 11/08/17 08:10 Dose: 10 mg Cholecalciferol (Vitamin D Tab*) 1,000 units PO DAILY [facility] Last Admin: 11/08/17 08:09 Dose: 1,000 units Clotrimazole (Mycelex Michael*) 10 mg PO FIVE TIMES DAILY [facility] Last Admin: 11/08/17 10:16 Dose: 10 mg Cyanocobalamin (Vitamin B12 Tab*) 1,000 mcg PO EVERY OTHER DAY [facility] Last Admin: 11/07/17 08:43 Dose: 1,000 mcg Device (Tiotropium Inhaler Device*) 1 each INH .USE w/ SPIRIVA CAPS [facility] Diltiazem HCl (Cardizem Tab*) 60 mg PO Q6HR [facility] Stop: 11/08/17 23:59 Last Admin: 11/08/17 06:48 Dose: 60 mg Diltiazem HCl (Cardizem Cd Cap*) 240 mg PO DAILY [facility] Docusate Sodium (Colace Cap*) 100 mg PO BID PRN PRN Reason: CONSTIPATION Last Admin: 11/06/17 18:17 Dose: 100 mg Fluoxetine HCl (Prozac Cap*) 60 mg PO DAILY [facility] Last Admin: 11/08/17 08:09 Dose: 60 mg Fluticasone Propionate (Flonase Nasal [place] 50mcg*) 2 spray BOTH NARES DAILY [facility] Last Admin: 11/08/17 08:05 Dose: 2 spray Furosemide (Lasix Tab*) 20 mg PO MOWEFR [facility] Last Admin: 11/07/17 11:56 Dose: 20 mg Guaifenesin (Mucinex*) 1,200 mg PO BID [facility] Last Admin: 11/08/17 08:09 Dose: 1,200 mg Hydralazine HCl (Apresoline Iv*) 5 mg IV SLOW PU Q6H PRN PRN Reason: BLOOD PRESSURE Last Admin: 11/05/17 00:02 Dose: 5 mg Hydroxyurea (Hydrea Cap*) 1,500 mg PO DAILY [facility] Last Admin: 11/08/17 08:08 Dose: 1,500 mg Vancomycin HCl 750 mg/ Sodium (Chloride) 250 mls @ 166.667 mls/hr IVPB Q12H [facility] Last Admin: 11/08/17 06:48 Dose: 100 mls/hr Meropenem (Merrem 500mg Premix(*)) 500 mg in 50 mls @ 100 mls/hr IV Q8H [facility] Last Admin: 11/08/17 04:01 Dose: 100 mls/hr Levothyroxine Sodium (Synthroid Tab*) 112 mcg PO 0600 [facility] Last Admin: 11/08/17 06:48 Dose: 112 mcg Lisinopril (Prinivil Tab*) 40 mg PO DAILY [facility] Last Admin: 11/08/17 08:10 Dose: 40 mg Loperamide HCl (Imodium Cap*) 2 mg PO TID PRN PRN Reason: DIARRHEA Lorazepam (Ativan Tab(*)) 0.5 mg PO Q4H PRN PRN Reason: ANXIETY Last Admin: 11/06/17 23:38 Dose: 0.5 mg Magnesium Oxide (Magox 400 Tab*) 400 mg PO DAILY [facility] Last Admin: 11/08/17 08:10 Dose: 400 mg Methylprednisolone Sodium Succinate (Solu-Medrol 40 Mg) 30 mg IV Q12H [facility] Last Admin: 11/08/17 10:16 Dose: 30 mg Mometasone Furoate/Formoterol Fumar (Dulera 200/5 Mdi*) 2 puff INH BID [facility]; Protocol Last Admin: 11/08/17 08:16 Dose: 2 puff Montelukast Sodium (Singulair Tab*) 10 mg PO BEDTIME [facility] Last Admin: 11/07/17 22:07 Dose: 10 mg Morphine Sulfate (Morphine Vial*) 2 mg IV Q6H PRN PRN Reason: PAIN - MILD Last Admin: 11/08/17 04:01 Dose: 2 mg Multivitamins/Minerals (Theragran/Minerals Tab*) 1 tab PO DAILY [facility] Last Admin: 11/08/17 08:10 Dose: 1 tab Nystatin (Nystatin Top Powder*) 1 applic TOPICAL TID [facility] Last Admin: 11/08/17 08:06 Dose: 1 applic Omeprazole (Prilosec Cap*) 20 mg PO 0730 [facility] Last Admin: 11/08/17 06:48 Dose: 20 mg Ondansetron HCl (Zofran 40 Mg Vial*) 4 mg IV Q6H PRN PRN Reason: NAUSEA Pharmacy Consult (Vancomycin Per Pharmacy*) 1 note FOLLOW UP .VANC PER PHARMACY [facility] Rivaroxaban (Xarelto(*)) 10 mg PO DAILY [facility] Last Admin: 11/08/17 08:07 Dose: 10 mg Tiotropium [place] (Spiriva Cap.Inh*) 1 cap INH DAILY [facility] Last Admin: 11/08/17 08:16 Dose: 1 cap.inh Objective: [] Vital Signs Temp Pulse Resp BP Pulse Ox 97.6 F 103 25 179/89 91 11/08/17 07:20 11/08/17 08:13 11/08/17 08:13 11/08/17 05:02 11/08/17 08:13 HEENT - vapotherm, no oral lesions. pale SOB after moving to chair, RR 30 Decreased BS, no wheezing, some crackles RRR S1S2 +BS, sitting non tender +1 YOLIE symetric AAOx 3 Bruising on hands looks a little better. Blood film: There is mix neurophils and lymphocytes, differential is 50% polys, no blasts, scattered monocytes. Some smudge cells. Thrombocytosis, marocytosis. Assessment: []77 year old with essential thrombocytosis and COPD. Prolonged hospitalization with COPD and hospital acquired pneumonia. Now improving on vapotherm but has had persistent thrombocytosis and leukocytosis. Leukocytosis is in part from steriods and infection. The etiology of increased lymphocytes is less clear. Question of underlying CLL concurrent and potentially driving know myeloproliferative disease. I suspect that underlying ET exacerbated by inflammatory state and iron deficiency. Plan: []1. Will continue HU to 1500 mg po daily 2. Hgb stable and will follow. Give IV iron to see if helps reduce plts. 3. Xeralto to 10 mg po daily until plts < 1,000,000. 4. Lymphocytosis. Will check flow cytometry and quantitative immunoglobulins and SPEP.
[2017-11-08] MEDS ORDERED: Ferric Gluconate IV* 25 MG in NS 0.9% 50 ML* 50 ML IVPB ONE (10:41)
--- NOTE | 2017-11-08 13:15 | PN ---
Progress Note - Progress Note Date of Service: 11/08/17 - Pulm f/u note Note: Pt seen and examined at bedside. Pt reports feeling better. Was not winded ambulating to commode this am. Was transitioned to [place] @12L. Active Medications Generic Name Dose Route Start Last Admin Trade Name Freq PRN Reason Stop Dose Admin Acetaminophen 650 mg 10/22/17 21:18 10/26/17 02:30 Tylenol Tab* PO 650 mg Q6H PRN Administration FEVER/PAIN Albuterol/Ipratropium 1 neb 11/01/17 16:06 11/07/17 19:10 Duoneb (Albuterol 2.5 Mg/Ipratropium 0.5 Mg) INH 1 neb Q6H PRN Administration SOB/WHEEZING Atorvastatin Calcium 10 mg 10/23/17 21:00 11/07/17 22:07 Lipitor* PO 10 mg BEDTIME SONJA Administration Benzonatate 100 mg 10/22/17 21:18 11/04/17 21:57 Tessalon Cap* PO 100 mg BID PRN Administration COUGH Cetirizine HCl 10 mg 10/23/17 09:00 11/08/17 08:10 Zyrtec* PO 10 mg DAILY SONJA Administration Protocol Cholecalciferol 1,000 units 10/23/17 09:00 11/08/17 08:09 Vitamin D Tab* PO 1,000 units DAILY [facility] Administration Clotrimazole 10 mg 10/22/17 22:00 11/08/17 10:16 Mycelex Michael* PO 10 mg FIVE TIMES DAILY [facility] Administration Cyanocobalamin 1,000 mcg 10/24/17 09:00 11/07/17 08:43 Vitamin B12 Tab* PO 1,000 mcg EVERY OTHER DAY [facility]ON[facility] Administration Device 1 each 10/25/17 12:00 Tiotropium Inhaler Device* INH .USE w/ SPIRIVA CAPS [facility] Diltiazem HCl 60 mg 11/06/17 12:00 11/08/17 12:13 Cardizem Tab* PO 11/08/17 23:59 60 mg Q6HR [facility]ONJA Administration Diltiazem HCl 240 mg 11/09/17 09:00 Cardizem Cd Cap* PO DAILY [facility] Docusate Sodium 100 mg 10/22/17 21:26 11/06/17 18:17 Colace Cap* PO 100 mg BID PRN Administration CONSTIPATION Fluoxetine HCl 60 mg 10/31/17 09:00 11/08/17 08:09 Prozac Cap* PO 60 mg DAILY [facility] Administration Fluticasone Propionate 2 spray 10/23/17 09:00 11/08/17 08:05 Flonase Nasal [place] 50mcg* BOTH NARES 2 spray DAILY [facility] Administration Furosemide 20 mg 11/07/17 11:00 11/07/17 11:56 Lasix Tab* PO 20 mg MOWEFR [facility]ONJA Administration Guaifenesin 1,200 mg 10/23/17 09:00 11/08/17 08:09 Mucinex* PO 1,200 mg BID [facility] Administration Hydralazine HCl 5 mg 10/28/17 12:48 11/05/17 00:02 Apresoline Iv* IV SLOW PU 5 mg Q6H PRN Administration BLOOD PRESSURE Hydroxyurea 1,500 mg 11/08/17 09:00 11/08/17 08:08 Hydrea Cap* PO 1,500 mg DAILY [facility] Administration Meropenem 500 mg in 50 mls @ 100 mls/hr 11/05/17 12:00 11/08/17 12:10 Merrem 500mg Premix(*) IV 100 mls/hr Q8H [facility] Administration Ferric Sodium Gluconate 108 mls @ 0 mls/hr 11/08/17 10:41 Complex 100 mg/ Sodium IVPB 11/08/17 10:42 Chloride ONCE ONE As Directed Levothyroxine Sodium 112 mcg 10/23/17 06:00 11/08/17 06:48 Synthroid Tab* PO 112 mcg 0600 [facility] Administration Lisinopril 40 mg 10/23/17 09:00 11/08/17 08:10 Prinivil Tab* PO 40 mg DAILY [facility] Administration Loperamide HCl 2 mg 10/22/17 21:26 Imodium Cap* PO TID PRN DIARRHEA Lorazepam 0.5 mg 11/05/17 10:11 11/06/17 23:38 Ativan Tab(*) PO 0.5 mg Q4H PRN Administration ANXIETY Magnesium Oxide 400 mg 10/23/17 09:00 11/08/17 08:10 Magox 400 Tab* PO 400 mg DAILY [facility] Administration Methylprednisolone Sodium Succinate 30 mg 11/08/17 09:00 11/08/17 10:16 Solu-Medrol 40 Mg IV 30 mg Q12H [facility] Administration Mometasone Furoate/Formoterol Fumar 2 puff 10/23/17 09:00 11/08/17 08:16 Dulera 200/5 Mdi* INH 2 puff BID [facility] Administration Protocol Montelukast Sodium 10 mg 10/23/17 21:00 11/07/17 22:07 Singulair Tab* PO 10 mg BEDTIME [facility] Administration Morphine Sulfate 2 mg 11/05/17 11:51 11/08/17 04:01 Morphine Vial* IV 2 mg Q6H PRN Administration PAIN - MILD Multivitamins/Minerals 1 tab 10/23/17 09:00 11/08/17 08:10 Theragran/Minerals Tab* PO 1 tab DAILY [facility] Administration Nystatin 1 applic 11/05/17 14:00 11/08/17 08:06 Nystatin Top Powder* TOPICAL 1 applic TID [facility]ON[facility] Administration Omeprazole 20 mg 10/23/17 07:30 11/08/17 06:48 Prilosec Cap* PO 20 mg 0730 [facility] Administration Ondansetron HCl 4 mg 10/22/17 21:18 Zofran 40 Mg Vial* IV Q6H PRN NAUSEA Rivaroxaban 10 mg 11/08/17 09:00 11/08/17 08:07 Xarelto(*) PO 10 mg DAILY [facility] Administration Tiotropium [place] 1 cap 10/26/17 09:00 11/08/17 08:16 Spiriva Cap.Inh* INH 1 cap.inh DAILY [facility] Administration Vital Signs Temp Pulse Resp BP Pulse Ox 96.4 F 107 27 133/89 94 11/08/17 12:00 11/08/17 11:01 11/08/17 11:01 11/08/17 11:01 11/08/17 11:01 O/E: Pt in NAD, sitting up in chair HEENt: PERRLA, No JVD Lungs: Diminished air entry, decreased at bases CVS: S1, S2+, tachycardic Abd: Soft, BS+, NT Ext: Normal ROM Skin: Bruise on extremities from IV insertion sites, no abscess, skin in groin looks better Neuro: No focal defecits, alert, awake, oriented x3 Laboratory Results - last 24 hr 11/07/17 11/08/17 11/08/17 12:30 04:16 04:16 WBC 41.2 H RBC 3.05 L Hgb 10.2 L Hct 34 L MCV 110 H MCH 34 H MCHC 31 RDW 26 H Plt Count 1683 H D MPV 9.8 Sodium 142 Potassium 4.1 Chloride 104 Carbon Dioxide 28 Anion Gap 10 BUN 13 Creatinine 0.78 Est GFR ( Amer) 86.2 Est GFR (Non-Af Amer) 71.2 BUN/Creatinine Ratio 16.7 Glucose 156 H Calcium 8.9 Vancomycin Trough Blood Type A Positive Antibody Screen Negative Crossmatch See Detail 11/08/17 05:02 WBC RBC Hgb Hct MCV MCH MCHC RDW Plt Count MPV Sodium Potassium Chloride Carbon Dioxide Anion Gap BUN Creatinine Est GFR ( Amer) Est GFR (Non-Af Amer) BUN/Creatinine Ratio Glucose Calcium Vancomycin Trough 16.2 Blood Type Antibody Screen Crossmatch I/R: 77y F with history of COPD on 2-3L home O2, myeloproliferative disorder/ essential thrombocytosis, hypothyroidism, Afib, HLD, HTN, h/o Pneumonia and PE in past, anxiety disorder; recent hospitalization 09/2017 for COPD exacerbation, sepsis/pneumonia, returned to ER 10/22 for SOB, temp 100.3, was admitted for COPD exacerbation and PNA. Was also found to have significant anemia, attributed to hydrea side effect, Medication was held, thrombocytosis worsened requiring restarting and increase in dose, also with worsening hypoxemia requiring high flow, increasing WBC counts, antibiotic coverage broadened, septic w/u repeated, CT chest showed RML consolidation, mucus plugging in areas of bronchiectasis in left lower lobe. Slow clinical improvement Sputum cx showed yeast, likely oral colonization, bl cx negative to date Leucocytosis and thrombocytosis worsening, hydrea increased Haem f/u appreciated BP slightly elevated , on Lisinopril, cardizem, will increase dose if continues to be elevated Hemodynamically stable A.fib, rate in high 90`s while on Cardizem 60 q 6h and Xarelto Received ASA given thrombocytosis On Meropenem and Vanco, will stop Vanco and c/w Meropenem c/w Lasix Solumedrol 40mg q 12hrs, Taper to 30mg q 12 hrs today and 20mg q 12 hrs tomorrow c/w metanebs, incentive spirometry C/w FiO2 taper as tolerated OOB to chair, ambulate as tolerated D/w Dr Bustamante
[2017-11-08] MEDS ORDERED: Ferric Gluconate IV* 100 MG in NS 0.9% 100 ML* 100 ML IVPB ONE (14:15)
[2017-11-08] MEDS: LORazepam TAB(*) 0.5 MG PO PRN (16:53)
[2017-11-08] MEDS: Albuterol/Ipratropium NEB.SOL* Albuterol 2.5 MG/Ipratropium 0.5 MG 3 ML INH PRN (20:06)
[2017-11-08] MEDS: Atorvastatin* 10 MG TAB PO SCH (20:47)
[2017-11-08] MEDS: Montelukast Sodium TAB* 10 MG PO SCH (21:53)
[2017-11-09] MEDS: Levothyroxine TAB* 112 MCG TAB PO SCH (04:43)
[2017-11-09] MEDS: Meropenem 500MG PREMIX(*) 500 MG/50 ML BAG IV SCH ×3 (04:43→19:57)
[2017-11-09] MEDS: Clotrimazole TROCHE* 10 MG TROCHE PO SCH ×5 (04:43→21:07)
[2017-11-09] MEDS: Morphine VIAL* 4 MG/ML VIAL (1 ml vial) IV PRN ×2 (04:43→10:03)
[2017-11-09 05:09] LABS: Hematocrit 37 % (35-47); Hemoglobin 10.9 g/dl (12.0-16.0); Mean Corpuscular HGB Conc 30 g/dl (31-36); Mean Corpuscular Hemoglobin 33 pg (27-31); Mean Corpuscular Volume 110 fL (80-97); Platelet Count 1916 10^3/ul (150-450); Red Blood Count 3.33 10^6/ul (4.00-5.40); Red Cell Distribution Width 26 % (10.5-15); White Blood Count 54.4 10^3/ul (3.5-10.8)
[2017-11-09 05:22] LABS: EGFR Non-African American 67.2 (>60)
[2017-11-09 05:28] LABS: ABS Basophils 0.4 10^3/ul (0-0.2); ABS Eosinophils 0 10^3/ul (0-0.6); ABS Lymphocytes 22.1 10^3/ul (1.0-4.8); ABS Monocytes 1.5 10^3/ul (0-0.8); ABS Neutrophils 30.4 10^3/ul (1.5-7.7); ABS Nucleated RBC 0.2 10^3/ul
[2017-11-09 05:35] LABS: ABS Basophils 0 10^3/ul (0-0.2); ABS Neutrophils 26.7 10^3/ul (1.5-7.7); Monocytes % 1 % (0-7)
[2017-11-09] MEDS: Tiotropium CAP.INH* CAP.INH/18 MCG (USE ORDER SET !) INH SCH (08:05)
[2017-11-09] MEDS: Mometasone/Formoter 200/5 MDI INH SCH ×2 (08:06→20:44)
[2017-11-09] MEDS: FLUoxetine CAP* 20 MG PO SCH (08:38)
[2017-11-09] MEDS: Cyanocobalamin TAB* 500 MCG PO SCH (08:38)
[2017-11-09] MEDS: Lisinopril TAB* 10 MG PO SCH (08:39)
[2017-11-09] MEDS: Multivitamins/Minerals TAB PO SCH (08:39)
[2017-11-09] MEDS: Magnesium Oxide TAB* 400 MG PO SCH (08:39)
[2017-11-09] MEDS: Cholecalciferol TAB* 1000 UNITS PO SCH (08:39)
[2017-11-09] MEDS: Omeprazole CAP* 20 MG PO SCH (08:39)
[2017-11-09] MEDS: Rivaroxaban TAB(*) 10 MG PO SCH (08:39)
[2017-11-09] MEDS: Cetirizine* 10 MG TAB PO SCH (08:39)
[2017-11-09] MEDS: guaiFENesin ER TAB 600 MG PO SCH ×2 (08:39→21:07)
[2017-11-09] MEDS: HydroxyUREA CAP* 500 MG CAP PO SCH ×2 (08:39→21:08)
[2017-11-09] MEDS: methylPREDNISolone SOD 40 MG* 1 ML VIAL IV SCH ×2 (08:40→16:16)
[2017-11-09] MEDS ORDERED: Diltiazem CD CAP* 240 MG PO SCH (09:00)
--- NOTE | 2017-11-09 09:10 | PN ---
Progress Note - Progress Note Date of Service: 11/09/17 SOAP: Subjective: []Continues to feel better day by day. Remains very weak and becomes tachycardic with limited activity. Denies needs. Right hand bruise remains but no change in function of arm or fingers. Denies chest pain and pressure, though breathing remains "tight." Doesn't want to leave ICU until she is stronger. Still hopes to be able to transition to rehab unit at some point. Spirits are up and taking it "day by day." Medications: Acetaminophen (Tylenol Tab*) 650 mg PO Q6H PRN PRN Reason: FEVER/PAIN Last Admin: 10/26/17 02:30 Dose: 650 mg Albuterol/Ipratropium (Duoneb (Albuterol 2.5 Mg/Ipratropium 0.5 Mg)) 1 neb INH Q6H PRN PRN Reason: SOB/WHEEZING Last Admin: 11/08/17 20:06 Dose: 1 neb Aspirin (Aspirin 81 Mg Chew Tab*) 81 mg PO DAILY [facility] Atorvastatin Calcium (Lipitor*) 10 mg PO BEDTIME [facility] Last Admin: 11/08/17 20:47 Dose: 10 mg Benzonatate (Tessalon Cap*) 100 mg PO BID PRN PRN Reason: COUGH Last Admin: 11/04/17 21:57 Dose: 100 mg Cetirizine HCl (Zyrtec*) 10 mg PO DAILY [facility]; Protocol Last Admin: 11/09/17 08:39 Dose: 10 mg Cholecalciferol (Vitamin D Tab*) 1,000 units PO DAILY [facility] Last Admin: 11/09/17 08:39 Dose: 1,000 units Clotrimazole (Mycelex Michael*) 10 mg PO FIVE TIMES DAILY [facility] Last Admin: 11/09/17 04:43 Dose: 10 mg Cyanocobalamin (Vitamin B12 Tab*) 1,000 mcg PO EVERY OTHER DAY [facility] Last Admin: 11/09/17 08:38 Dose: 1,000 mcg Device (Tiotropium Inhaler Device*) 1 each INH .USE w/ SPIRIVA CAPS [facility] Diltiazem HCl (Cardizem Cd Cap*) 240 mg PO DAILY [facility] Last Admin: 11/09/17 08:39 Dose: 240 mg Docusate Sodium (Colace Cap*) 100 mg PO BID PRN PRN Reason: CONSTIPATION Last Admin: 11/06/17 18:17 Dose: 100 mg Fluoxetine HCl (Prozac Cap*) 60 mg PO DAILY [facility] Last Admin: 11/09/17 08:38 Dose: 60 mg Fluticasone Propionate (Flonase Nasal [place] 50mcg*) 2 spray BOTH NARES DAILY [facility] Last Admin: 11/08/17 08:05 Dose: 2 spray Furosemide (Lasix Tab*) 20 mg PO MOWEFR [facility] Last Admin: 11/07/17 11:56 Dose: 20 mg Guaifenesin (Mucinex*) 1,200 mg PO BID [facility] Last Admin: 11/09/17 08:39 Dose: 1,200 mg Hydralazine HCl (Apresoline Iv*) 5 mg IV SLOW PU Q6H PRN PRN Reason: BLOOD PRESSURE Last Admin: 11/05/17 00:02 Dose: 5 mg Hydroxyurea (Hydrea Cap*) 1,500 mg PO BID [facility] Last Admin: 11/09/17 08:39 Dose: 1,500 mg Meropenem (Merrem 500mg Premix(*)) 500 mg in 50 mls @ 100 mls/hr IV Q8H [facility] Last Admin: 11/09/17 04:43 Dose: 100 mls/hr Levothyroxine Sodium (Synthroid Tab*) 112 mcg PO 0600 [facility] Last Admin: 11/09/17 04:43 Dose: 112 mcg Lisinopril (Prinivil Tab*) 40 mg PO DAILY [facility] Last Admin: 11/09/17 08:39 Dose: 40 mg Loperamide HCl (Imodium Cap*) 2 mg PO TID PRN PRN Reason: DIARRHEA Lorazepam (Ativan Tab(*)) 0.5 mg PO Q4H PRN PRN Reason: ANXIETY Last Admin: 11/08/17 16:53 Dose: 0.5 mg Magnesium Oxide (Magox 400 Tab*) 400 mg PO DAILY [facility] Last Admin: 11/09/17 08:39 Dose: 400 mg Methylprednisolone Sodium Succinate (Solu-Medrol 40 Mg) 30 mg IV Q12H [facility] Last Admin: 11/09/17 08:40 Dose: 30 mg Mometasone Furoate/Formoterol Fumar (Dulera 200/5 Mdi*) 2 puff INH BID [facility]; Protocol Last Admin: 11/09/17 08:06 Dose: 2 puff Montelukast Sodium (Singulair Tab*) 10 mg PO BEDTIME [facility] Last Admin: 11/08/17 21:53 Dose: 10 mg Morphine Sulfate (Morphine Vial*) 2 mg IV Q6H PRN PRN Reason: PAIN - MILD Last Admin: 11/09/17 04:43 Dose: 2 mg Multivitamins/Minerals (Theragran/Minerals Tab*) 1 tab PO DAILY [facility] Last Admin: 11/09/17 08:39 Dose: 1 tab Nystatin (Nystatin Top Powder*) 1 applic TOPICAL TID [facility] Last Admin: 11/08/17 21:53 Dose: 1 applic Omeprazole (Prilosec Cap*) 20 mg PO 729 [facility] Last Admin: 11/09/17 08:39 Dose: 20 mg Ondansetron HCl (Zofran 40 Mg Vial*) 4 mg IV Q6H PRN PRN Reason: NAUSEA Rivaroxaban (Xarelto(*)) 10 mg PO DAILY [facility] Last Admin: 11/09/17 08:39 Dose: 10 mg Tiotropium [place] (Spiriva Cap.Inh*) 1 cap INH DAILY [facility] Last Admin: 11/09/17 08:05 Dose: 1 cap.inh Objective: [] Vital Signs Temp Pulse Resp BP Pulse Ox 98.2 F 122 21 168/126 93 11/09/17 07:26 11/09/17 08:11 11/09/17 08:11 11/09/17 07:01 11/09/17 08:11 A&Ox3, EOMI, LOPEZ, neuro grossly non-focal Communicating clearly and states good understanding of plan of care HRI, A.Fib rate 130s on tele LS dim. to bases with exp. wheeze upper lobes, tachypnea with talking Right hand hematoma up mid-forearm, multiple large bruises Laboratory Results - last 24 hr 11/09/17 11/09/17 04:56 04:56 WBC 54.4 H RBC 3.33 L Hgb 10.9 L Hct 37 MCV 110 H MCH 33 H MCHC 30 L RDW 26 H Plt Count 1916 H MPV 10.0 Neut % (Auto) Not Reportable Lymph % (Auto) Not Reportable [place] % (Auto) Not Reportable Eos % (Auto) Not Reportable Baso % (Auto) Not Reportable Absolute Neuts (auto) 30.4 H Absolute Lymphs (auto) 22.1 H Absolute Monos (auto) 1.5 H Absolute Eos (auto) 0 Absolute Basos (auto) 0.4 H Absolute Nucleated RBC 0.2 Immature Gran % 4 Neutrophils % 49 Band Neutrophils % 2 Lymphocytes % 44 Reactive Lymphs % 2 Monocytes % 1 Eosinophils % 0 Basophils % 0 Metamyelocytes % 1 Promyelocytes % 1 Nucleated RBC % Not Reportable Abs Neuts (Manual) 26.7 H Abs Lymphs (Manual) 23.9 H Abs Monocytes (Manual) 0.5 Absolute Eos (Manual) 0 Abs Basophils (Manual) 0 Smudge Cells Present Platelet Morphology Giant Normal RBC Morphology Not Reportable Polychromasia 1+ Macrocytosis 2+ Hem Pathologist Commnt Cancelled Sodium 140 Potassium 4.4 Chloride 103 Carbon Dioxide 30 Anion Gap 7 BUN 25 H Creatinine 0.82 Est GFR ( Amer) 81.4 Est GFR (Non-Af Amer) 67.2 BUN/Creatinine Ratio 30.5 H Glucose 146 H Calcium 9.4 Microbiology 11/06/17 10:00 Gram Stain - Final Sputum Sputum Culture - Preliminary YEAST Pseudomonas Aeruginosa 11/06/17 10:36 Aerobic Blood Culture - Preliminary Blood Venous No Growth Day 2 Anaerobic Blood Culture - Preliminary No Growth Day 2 10/28/17 10:40 Stool Occult Blood (LISA) - Final Stool 10/22/17 17:42 Aerobic Blood Culture - Final Blood Venous No Growth Day 5 Anaerobic Blood Culture - Final No Growth Day 5 10/22/17 17:42 Aerobic Blood Culture - Final Blood Venous No Growth Day 5 Anaerobic Blood Culture - Final No Growth Day 5 Assessment: []77 yo female with complex medical history admitted for COPD exacerbation and currently in ICU due to recurrent respiratory distress found to have Pseudomonas , in sputum improving on Meropenem. Course unfortunately complicated by Essential Thrombocytosis which was previously controlled on Hydroxurea, however during acute illness held for anemia, and has subsequently had marked elevation with plt. now over 1 million despite resuming and increasing HU. Underlying concern for bleeding with elevated plt. 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 Plan: []1. Pseudomonas Pneumonia: as per batt packer 2. ET: Increase HU to 1000 mg PO BID, add ASA 81 mg PO qday, and keep Xarelto @ 10 mg PO qday while plt. >1million 3. Anemia: functionally iron deficient, daily Ferrlecit IV x8 4. Leukocytosis: shift with infection, however marked elevation in lymphocytes as per slide reviewed yesterday by Dr. Ram, add on flow cytometry to peripheral blood 5. A.Fib: as per batt packer, anti-coagulation as above Case reviewed with Onc. attending, Dr. Ram, and attending batt packer, Dr. Singh.
[2017-11-09] MEDS: Fluticasone NASAL SPRAY 50MCG* 16 gm SPRAY BTL BOTH NARES SCH (09:41)
[2017-11-09] MEDS: LORazepam TAB(*) 0.5 MG PO PRN (10:04)
[2017-11-09] MEDS: Furosemide TAB* 20 MG PO SCH (10:38)
[2017-11-09] MEDS ORDERED: Diltiazem IV VIAL* 125 MG/25 ML VIAL IV ONE (11:00)
[2017-11-09] MEDS: Ferric Gluconate IV* 100 MG in NS 0.9% 100 ML* 100 ML IVPB SCH (11:32)
--- NOTE | 2017-11-09 12:05 | PN ---
Progress Note - Progress Note Date of Service: 11/09/17 - Pulm f/u note Note: Pt seen and examined at bedside. Overnight events noted. Pt reports feeling better. Had episodes of hypoxia and tachypnea when getting back from commode, responded to Morphine and Ativan. Back on vapotherm this am. Was tachycardic and tachypneic this am, with A.fib with RVR, responded to Cardizem Active Medications Generic Name Dose Route Start Last Admin Trade Name Freq PRN Reason Stop Dose Admin Acetaminophen 650 mg 10/22/17 21:18 10/26/17 02:30 Tylenol Tab* PO 650 mg Q6H PRN Administration FEVER/PAIN Albuterol/Ipratropium 1 neb 11/01/17 16:06 11/08/17 20:06 Duoneb (Albuterol 2.5 Mg/Ipratropium 0.5 Mg) INH 1 neb Q6H PRN Administration SOB/WHEEZING Aspirin 81 mg 11/10/17 09:00 Aspirin 81 Mg Chew Tab* PO DAILY [facility] Atorvastatin Calcium 10 mg 10/23/17 21:00 11/08/17 20:47 Lipitor* PO 10 mg BEDTIME [facility] Administration Benzonatate 100 mg 10/22/17 21:18 11/04/17 21:57 Tessalon Cap* PO 100 mg BID PRN Administration COUGH Cetirizine HCl 10 mg 10/23/17 09:00 11/09/17 08:39 Zyrtec* PO 10 mg DAILY [facility] Administration Protocol Cholecalciferol 1,000 units 10/23/17 09:00 11/09/17 08:39 Vitamin D Tab* PO 1,000 units DAILY [facility] Administration Clotrimazole 10 mg 10/22/17 22:00 11/09/17 09:42 Mycelex Michael* PO 10 mg FIVE TIMES DAILY [facility] Administration Cyanocobalamin 1,000 mcg 10/24/17 09:00 11/09/17 08:38 Vitamin B12 Tab* PO 1,000 mcg EVERY OTHER DAY [facility] Administration Device 1 each 10/25/17 12:00 Tiotropium Inhaler Device* INH .USE w/ SPIRIVA CAPS [facility] Diltiazem HCl 240 mg 11/09/17 09:00 11/09/17 08:39 Cardizem Cd Cap* PO 240 mg DAILY [facility] Administration Docusate Sodium 100 mg 10/22/17 21:26 11/06/17 18:17 Colace Cap* PO 100 mg BID PRN Administration CONSTIPATION Fluoxetine HCl 60 mg 10/31/17 09:00 11/09/17 08:38 Prozac Cap* PO 60 mg DAILY [facility] Administration Fluticasone Propionate 2 spray 10/23/17 09:00 11/09/17 09:41 Flonase Nasal [place] 50mcg* BOTH NARES 2 spray DAILY [facility] Administration Furosemide 20 mg 11/07/17 11:00 11/09/17 10:38 Lasix Tab* PO 20 mg MOWEFR [facility] Administration Guaifenesin 1,200 mg 10/23/17 09:00 11/09/17 08:39 Mucinex* PO 1,200 mg BID [facility] Administration Hydralazine HCl 5 mg 10/28/17 12:48 11/05/17 00:02 Apresoline Iv* IV SLOW PU 5 mg Q6H PRN Administration BLOOD PRESSURE Hydroxyurea 1,500 mg 11/09/17 09:00 11/09/17 08:39 Hydrea Cap* PO 1,500 mg BID [facility] Administration Meropenem 500 mg in 50 mls @ 100 mls/hr 11/05/17 12:00 11/09/17 10:52 Merrem 500mg Premix(*) IV 100 mls/hr Q8H [facility] Administration Ferric Sodium Gluconate 108 mls @ 108 mls/hr 11/09/17 10:00 11/09/17 11:32 Complex 100 mg/ Sodium IVPB 11/16/17 09:59 108 mls/hr Chloride DAILY [facility] Administration Per Protocol Levothyroxine Sodium 112 mcg 10/23/17 06:00 11/09/17 04:43 Synthroid Tab* PO 112 mcg 0600 [facility] Administration Lisinopril 40 mg 10/23/17 09:00 11/09/17 08:39 Prinivil Tab* PO 40 mg DAILY [facility] Administration Loperamide HCl 2 mg 10/22/17 21:26 Imodium Cap* PO TID PRN DIARRHEA Lorazepam 0.5 mg 11/05/17 10:11 11/09/17 10:04 Ativan Tab(*) PO 0.5 mg Q4H PRN Administration ANXIETY Magnesium Oxide 400 mg 10/23/17 09:00 11/09/17 08:39 Magox 400 Tab* PO 400 mg DAILY [facility] Administration Methylprednisolone Sodium Succinate 30 mg 11/08/17 09:00 11/09/17 08:40 Solu-Medrol 40 Mg IV 30 mg Q12H [facility] Administration Mometasone Furoate/Formoterol Fumar 2 puff 10/23/17 09:00 11/09/17 08:06 Dulera 200/5 Mdi* INH 2 puff BID [facility] Administration Protocol Montelukast Sodium 10 mg 10/23/17 21:00 11/08/17 21:53 Singulair Tab* PO 10 mg BEDTIME [facility] Administration Morphine Sulfate 2 mg 11/05/17 11:51 11/09/17 10:03 Morphine Vial* IV 2 mg Q6H PRN Administration PAIN - MILD Multivitamins/Minerals 1 tab 10/23/17 09:00 11/09/17 08:39 Theragran/Minerals Tab* PO 1 tab DAILY [facility] Administration Nystatin 1 applic 11/05/17 14:00 11/08/17 21:53 Nystatin Top Powder* TOPICAL 1 applic TID [facility] Administration Omeprazole 20 mg 10/23/17 07:30 11/09/17 08:39 Prilosec Cap* PO 20 mg 0730 [facility] Administration Ondansetron HCl 4 mg 10/22/17 21:18 Zofran 40 Mg Vial* IV Q6H PRN NAUSEA Rivaroxaban 10 mg 11/08/17 09:00 11/09/17 08:39 Xarelto(*) PO 10 mg DAILY [facility] Administration Tiotropium [place] 1 cap 10/26/17 09:00 11/09/17 08:05 Spiriva Cap.Inh* INH 1 cap.inh DAILY [facility] Administration Vital Signs Temp Pulse Resp BP Pulse Ox 97.5 F 120 23 143/87 100 11/09/17 11:18 11/09/17 11:01 11/09/17 11:01 11/09/17 11:01 11/09/17 11:01 O/E: Pt in NAD HEENT: PERRLA, No JVD Lungs: Diminished air entry at bases, no wheeze CVS: S1, S2+, tachycardic Abd: Soft, BS+ Ext: NO edema Neuro: NO focal defecits Laboratory Results - last 24 hr 07/05/18 07/06/18 07/06/18 12:20 04:56 04:56 WBC 54.4 H RBC 3.33 L Hgb 10.9 L Hct 37 MCV 110 H MCH 33 H MCHC 30 L RDW 26 H Plt Count 1916 H MPV 10.0 Neut % (Auto) Not Reportable Lymph % (Auto) Not Reportable [place] % (Auto) Not Reportable Eos % (Auto) Not Reportable Baso % (Auto) Not Reportable Absolute Neuts (auto) 30.4 H Absolute Lymphs (auto) 22.1 H Absolute Monos (auto) 1.5 H Absolute Eos (auto) 0 Absolute Basos (auto) 0.4 H Absolute Nucleated RBC 0.2 Immature Gran % 4 Neutrophils % 49 Band Neutrophils % 2 Lymphocytes % 44 Reactive Lymphs % 2 Monocytes % 1 Eosinophils % 0 Basophils % 0 Metamyelocytes % 1 Promyelocytes % 1 Nucleated RBC % Not Reportable Abs Neuts (Manual) 26.7 H Abs Lymphs (Manual) 23.9 H Abs Monocytes (Manual) 0.5 Absolute Eos (Manual) 0 Abs Basophils (Manual) 0 Smudge Cells Present Platelet Morphology Giant Normal RBC Morphology Not Reportable Polychromasia 1+ Macrocytosis 2+ Hem Pathologist Commnt Cancelled Sodium 140 Potassium 4.4 Chloride 103 Carbon Dioxide 30 Anion Gap 7 BUN 25 H Creatinine 0.82 Est GFR ( Amer) 81.4 Est GFR (Non-Af Amer) 67.2 BUN/Creatinine Ratio 30.5 H Glucose 146 H Calcium 9.4 IgG 664 L IgA 227 IgM 26 L I/R: 77y F with history of COPD on 2-3L home O2, myeloproliferative disorder/ essential thrombocytosis, hypothyroidism, Afib, HLD, HTN, h/o Pneumonia and PE in past, anxiety disorder; recent hospitalization 09/2017 for COPD exacerbation, sepsis/pneumonia, returned to ER 10/22 for SOB, temp 100.3, was admitted for COPD exacerbation and PNA. Was also found to have significant anemia, attributed to hydrea side effect, Medication was held, thrombocytosis worsened requiring restarting and increase in dose, also with worsening hypoxemia requiring high flow, increasing WBC counts, antibiotic coverage broadened, septic w/u repeated, CT chest showed RML consolidation, mucus plugging in areas of bronchiectasis in left lower lobe. Slow clinical improvement Had A.fib with RVR this am, improved with Cardizem Might need to increase her Cardizem to her home dose Sputum cx showed Pseudomonas susceptible to Cipro, will deescalate abx to Cipro Leucocytosis and thrombocytosis worsening, hydrea increased Haem f/u appreciated c/w Xarelto Received ASA given thrombocytosis c/w Lasix Solumedrol 30mg q 12 hrs, taper to 20mg q 12 hrs c/w metanebs, incentive spirometry C/w FiO2 taper as tolerated OOB to chair, ambulate as tolerated D/w Dr Ledesma
[2017-11-09] MEDS: Nystatin TOP POWDER* 15 GM BTL TOPICAL SCH ×3 (13:39→21:08)
[2017-11-09] MEDS: Acetaminophen TAB* 325 MG PO PRN (17:52)
--- NOTE | 2017-11-09 19:21 | PN ---
Subjective Date of Service: 11/09/17 Interval History: . - Shortness of breath noted this AM... - Had episodes of hypoxia and tachypnea when getting back from toilet; she responded to Morphine & Ativan. - Restarted vapotherm this am. - Family History: Unchanged from Admission Social History: Unchanged from Admission Past Medical History: Unchanged from Admission Objective Active Medications: . Acetaminophen (Tylenol Tab*) 650 mg PO Q6H PRN PRN Reason: FEVER/PAIN Last Admin: 11/09/17 17:52 Dose: 650 mg Albuterol/Ipratropium (Duoneb (Albuterol 2.5 Mg/Ipratropium 0.5 Mg)) 1 neb INH Q6H PRN PRN Reason: SOB/WHEEZING Last Admin: 11/08/17 20:06 Dose: 1 neb Aspirin (Aspirin 81 Mg Chew Tab*) 81 mg PO DAILY [facility] Atorvastatin Calcium (Lipitor*) 10 mg PO BEDTIME SONJA Last Admin: 11/08/17 20:47 Dose: 10 mg Benzonatate (Tessalon Cap*) 100 mg PO BID PRN PRN Reason: COUGH Last Admin: 11/04/17 21:57 Dose: 100 mg Cetirizine HCl (Zyrtec*) 10 mg PO DAILY [facility]; Protocol Last Admin: 11/09/17 08:39 Dose: 10 mg Cholecalciferol (Vitamin D Tab*) 1,000 units PO DAILY [facility] Last Admin: 11/09/17 08:39 Dose: 1,000 units Clotrimazole (Mycelex Michael*) 10 mg PO FIVE TIMES DAILY [facility] Last Admin: 11/09/17 17:52 Dose: 10 mg Cyanocobalamin (Vitamin B12 Tab*) 1,000 mcg PO EVERY OTHER DAY SONJA Last Admin: 11/09/17 08:38 Dose: 1,000 mcg Device (Tiotropium Inhaler Device*) 1 each INH .USE w/ SPIRIVA CAPS SONJA Diltiazem HCl (Cardizem Tab*) 90 mg PO ONCE ONE Stop: 11/09/17 20:01 Diltiazem HCl (Cardizem Cd Cap*) 360 mg PO DAILY [facility] Docusate Sodium (Colace Cap*) 100 mg PO BID PRN PRN Reason: CONSTIPATION Last Admin: 11/06/17 18:17 Dose: 100 mg Fluoxetine HCl (Prozac Cap*) 60 mg PO DAILY [facility] Last Admin: 11/09/17 08:38 Dose: 60 mg Fluticasone Propionate (Flonase Nasal [place] 50mcg*) 2 spray BOTH NARES DAILY [facility] Last Admin: 11/09/17 09:41 Dose: 2 spray Furosemide (Lasix Tab*) 20 mg PO MOWEFR [facility] Last Admin: 11/09/17 10:38 Dose: 20 mg Guaifenesin (Mucinex*) 1,200 mg PO BID [facility] Last Admin: 11/09/17 08:39 Dose: 1,200 mg Hydralazine HCl (Apresoline Iv*) 5 mg IV SLOW PU Q6H PRN PRN Reason: BLOOD PRESSURE Last Admin: 11/05/17 00:02 Dose: 5 mg Hydroxyurea (Hydrea Cap*) 1,500 mg PO BID [facility] Last Admin: 11/09/17 08:39 Dose: 1,500 mg Meropenem (Merrem 500mg Premix(*)) 500 mg in 50 mls @ 100 mls/hr IV Q8H [facility] Last Admin: 11/09/17 10:52 Dose: 100 mls/hr Ferric Sodium Gluconate Complex 100 mg/ Sodium Chloride 108 mls @ 108 mls/hr IVPB DAILY [facility] Stop: 11/16/17 09:59 Last Admin: 11/09/17 11:32 Dose: 108 mls/hr Levothyroxine Sodium (Synthroid Tab*) 112 mcg PO 0600 [facility] Last Admin: 11/09/17 04:43 Dose: 112 mcg Lisinopril (Prinivil Tab*) 40 mg PO DAILY [facility] Last Admin: 11/09/17 08:39 Dose: 40 mg Loperamide HCl (Imodium Cap*) 2 mg PO TID PRN PRN Reason: DIARRHEA Lorazepam (Ativan Tab(*)) 0.5 mg PO Q4H PRN PRN Reason: ANXIETY Last Admin: 11/09/17 10:04 Dose: 0.5 mg Magnesium Oxide (Magox 400 Tab*) 400 mg PO DAILY [facility] Last Admin: 11/09/17 08:39 Dose: 400 mg Methylprednisolone Sodium Succinate (Solu-Medrol 40 Mg) 20 mg IV Q12H [facility] Last Admin: 11/09/17 16:16 Dose: 20 mg Mometasone Furoate/Formoterol Fumar (Dulera 200/5 Mdi*) 2 puff INH BID [facility]; Protocol Last Admin: 11/09/17 08:06 Dose: 2 puff Montelukast Sodium (Singulair Tab*) 10 mg PO BEDTIME [facility] Last Admin: 11/08/17 21:53 Dose: 10 mg Morphine Sulfate (Morphine Vial*) 2 mg IV Q6H PRN PRN Reason: PAIN - MILD Last Admin: 11/09/17 10:03 Dose: 2 mg Multivitamins/Minerals (Theragran/Minerals Tab*) 1 tab PO DAILY [facility] Last Admin: 11/09/17 08:39 Dose: 1 tab Nystatin (Nystatin Top Powder*) 1 applic TOPICAL TID [facility] Last Admin: 11/09/17 13:39 Dose: 1 applic Omeprazole (Prilosec Cap*) 20 mg PO 729 [facility] Last Admin: 11/09/17 08:39 Dose: 20 mg Ondansetron HCl (Zofran 40 Mg Vial*) 4 mg IV Q6H PRN PRN Reason: NAUSEA Rivaroxaban (Xarelto(*)) 10 mg PO DAILY [facility] Last Admin: 11/09/17 08:39 Dose: 10 mg Tiotropium [place] (Spiriva Cap.Inh*) 1 cap INH DAILY [facility] Last Admin: 11/09/17 08:05 Dose: 1 cap.inh . Vital Signs - 8 hr 11/09/17 11/09/17 11/09/17 11:18 12:00 13:00 Temperature 97.5 F Pulse Rate 106 113 Respiratory 25 27 Rate Blood Pressure 165/79 (mmHg) O2 Sat by Pulse 100 99 Oximetry 11/09/17 11/09/17 11/09/17 13:01 14:00 14:01 Temperature Pulse Rate 114 110 111 Respiratory 29 18 19 Rate Blood Pressure 151/84 142/82 (mmHg) O2 Sat by Pulse 99 100 99 Oximetry 11/09/17 11/09/17 11/09/17 15:00 15:22 16:00 Temperature 97.9 F Pulse Rate 121 110 Respiratory 21 20 Rate Blood Pressure 141/103 148/89 (mmHg) O2 Sat by Pulse 100 100 Oximetry 11/09/17 11/09/17 11/09/17 16:25 16:51 17:00 Temperature Pulse Rate 112 114 104 Respiratory 18 19 17 Rate Blood Pressure 152/105 (mmHg) O2 Sat by Pulse 100 100 100 Oximetry 11/09/17 11/09/17 11/09/17 17:01 18:00 18:01 Temperature Pulse Rate 111 108 112 Respiratory 19 20 15 Rate Blood Pressure 152/72 158/107 (mmHg) O2 Sat by Pulse 99 100 100 Oximetry Oxygen Devices in Use Now: High Flow Heated Nasal Cannula Appearance: elderly and frail; weak appearing; critically ill Eyes: No Scleral Icterus Ears/Nose/Mouth/Throat: Clear Oropharnyx Neck: Trachea Midline Respiratory: Symmetrical Chest Expansion and Respiratory Effort, - - diminished lung sounds throughout Cardiovascular: - - rapid AF; no M/R/G Lymphatic: No Cervical Adenopathy Extremities: No Edema Skin: No Nodules or Sclerosis Neurological: Alert and Oriented x 3 Lines/Tubes/Other Access: Clean, Dry and Intact Peripheral IV, Clean, Dry and Intact PICC Line - inserted Nutrition: Taking PO's Result Diagrams: 11/10/17 04:51 11/10/17 04:51 Microbiology and Other Data: Microbiology 10/22/17 17:42 Aerobic Blood Culture - Preliminary Blood Venous No Growth Day 2 Anaerobic Blood Culture - Preliminary No Growth Day 2 10/22/17 17:42 Aerobic Blood Culture - Preliminary Blood Venous No Growth Day 2 Anaerobic Blood Culture - Preliminary No Growth Day 2 Assess/Plan/Problems-Billing ASSESSMENT: Ms Keita is a 77 yo F who has a h/o COPD and chronic hypoxic respiratory failure (on home oxygen), AF, HTN, hypothyroidism, HLD, anxiety disorder, and chronic leukocytosis and 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 * h/p PNA and PE in the past * recent hospitalization 09/2017 for COPD exacerbation, sepsis/pneumonia, * significant anemia, attributed to hydrea side effect, medication was held, thrombocytosis worsened requiring restarting / increasing dose of Hydrea * CT chest showed RML consolidation, mucus plugging in areas of bronchiectasis in left lower lobe. Had A.fib with RVR this am, improved with Cardizem Might need to increase her Cardizem to her home dose Sputum cx shows Pseudomonas susceptible to Cipro Leucocytosis and thrombocytosis worsening, hydrea increased Heme f/u appreciated c/w Xarelto Received ASA given thrombocytosis c/w Lasix - Patient Problems (1) Atrial fibrillation Current Visit: Yes Status: Chronic Priority: High Code(s): I48.91 - UNSPECIFIED ATRIAL FIBRILLATION Comment: - Frequently rapid - Rivaroxaban decreased to 10 mg until platelets <1,000,000. - Diltiazem increased to 360 mg PO Daily - Consider adding digoxin if rate persists > 100 (2) COPD exacerbation Current Visit: Yes Status: Acute Priority: High Code(s): J44.1 - CHRONIC OBSTRUCTIVE PULMONARY DISEASE W (ACUTE) EXACERBATION Comment: - Was on Meropenem --> changed to Levoquin - Solumedrol taper to 20mg q 12 hrs - c/w nebs, incentive spirometry - c/w FiO2 taper as tolerated - OOB to chair, ambulate as tolerated (3) Anemia Current Visit: Yes Status: Acute Code(s): D64.9 - ANEMIA, UNSPECIFIED SNOMED Code(s): 935233154 Comment: - stable - continuing hydrea (4) Anxiety Current Visit: Yes Status: Acute Code(s): F41.9 - ANXIETY DISORDER, UNSPECIFIED SNOMED Code(s): 57319121 Comment: - Appreciate Psych consult - fluoxetine increased from 40 to 60mg - lorazaepam PRN added - can consider buspar- I have not added given the better control secondary to interventions above (5) Essential thrombocythemia Current Visit: Yes Status: Acute Code(s): D47.3 - ESSENTIAL (HEMORRHAGIC) THROMBOCYTHEMIA SNOMED Code(s): 777780362 Comment: Leucocytosis and thrombocytosis worsening, hydrea increased Heme f/u appreciated c/w Xarelto Received ASA given thrombocytosis (6) Full code status Current Visit: Yes Status: Acute Priority: High Code(s): Z78.9 - OTHER SPECIFIED HEALTH STATUS Comment: - consider DNR/DNI... (7) Respiratory failure Current Visit: Yes Status: Acute Code(s): J96.90 - RESPIRATORY FAILURE, UNSP , UNSP W HYPOXIA OR HYPERCAPNIA SNOMED Code(s): 376106769 Comment: - On Vapotherm 15L on 11/08 - Intermittent improvement - regressed AM of 11/09 - Taper methylprednisolone to 20 mg q 12 hr - Sputum cx shows Pseudomonas susceptible to Cipro (Levoquin) (8) Chronic respiratory failure Current Visit: Yes Status: Chronic Code(s): J96.10 - CHRONIC RESPIRATORY FAILURE, UNSP W HYPOXIA OR HYPERCAPNIA SNOMED Code(s): 51901498 Comment: - Acute on chronic hypoxic respitatory failure, increased O2 needs intermittently - Continue supplemental O2. - Secondary to COPD - O2 and steroid dependent (5 mg prednisone at baseline) (9) History of pulmonary embolus (PE) Current Visit: No Status: Chronic Priority: High Code(s): Z86.711 - PERSONAL HISTORY OF PULMONARY EMBOLISM Comment: - Continue xarelto, note reduced dose as above. Status and Disposition: Inpatient.
[2017-11-09] MEDS ORDERED: Diltiazem TAB* 30 MG PO ONE (20:00)
[2017-11-09] MEDS: Montelukast Sodium TAB* 10 MG PO SCH (21:07)
[2017-11-09] MEDS: Atorvastatin* 10 MG TAB PO SCH (21:07)
[2017-11-10] MEDS: LORazepam TAB(*) 0.5 MG PO PRN ×3 (03:21→21:25)
[2017-11-10] MEDS: Albuterol/Ipratropium NEB.SOL* Albuterol 2.5 MG/Ipratropium 0.5 MG 3 ML INH PRN ×3 (03:23→21:06)
[2017-11-10] MEDS: Meropenem 500MG PREMIX(*) 500 MG/50 ML BAG IV SCH (03:39)
[2017-11-10] MEDS: methylPREDNISolone SOD 40 MG* 1 ML VIAL IV SCH ×2 (03:41→15:41)
[2017-11-10 05:01] LABS: Hematocrit 33 % (35-47); Mean Corpuscular HGB Conc 30 g/dl (31-36); Mean Corpuscular Hemoglobin 33 pg (27-31); Mean Corpuscular Volume 110 fL (80-97); Mean Platelet Volume 9.7 um3 (7.4-10.4); Platelet Count 1557 10^3/ul (150-450); Red Blood Count 2.98 10^6/ul (4.00-5.40); Red Cell Distribution Width 25 % (10.5-15); White Blood Count 50.6 10^3/ul (3.5-10.8)
[2017-11-10 05:18] LABS: EGFR Non-African American 72.3 (>60)
[2017-11-10] MEDS: Clotrimazole TROCHE* 10 MG TROCHE PO SCH ×5 (06:02→22:30)
[2017-11-10] MEDS: Levothyroxine TAB* 112 MCG TAB PO SCH (06:02)
[2017-11-10] MEDS: Tiotropium CAP.INH* CAP.INH/18 MCG (USE ORDER SET !) INH SCH (07:48)
[2017-11-10] MEDS: Mometasone/Formoter 200/5 MDI INH SCH ×2 (07:48→21:06)
[2017-11-10] MEDS: Cholecalciferol TAB* 1000 UNITS PO SCH (09:26)
[2017-11-10] MEDS: Diltiazem CD CAP* 180 MG PO SCH (09:26)
[2017-11-10] MEDS: FLUoxetine CAP* 20 MG PO SCH (09:26)
[2017-11-10] MEDS: Cetirizine* 10 MG TAB PO SCH (09:28)
[2017-11-10] MEDS: Lisinopril TAB* 10 MG PO SCH (09:28)
[2017-11-10] MEDS: guaiFENesin ER TAB 600 MG PO SCH ×2 (09:28→21:25)
[2017-11-10] MEDS: Omeprazole CAP* 20 MG PO SCH (09:28)
[2017-11-10] MEDS: Aspirin 81 mg CHEW TAB* 81 MG TAB.CHEW PO SCH (09:28)
[2017-11-10] MEDS: Rivaroxaban TAB(*) 10 MG PO SCH (09:29)
[2017-11-10] MEDS: Multivitamins/Minerals TAB PO SCH (09:29)
[2017-11-10] MEDS: Magnesium Oxide TAB* 400 MG PO SCH (09:30)
[2017-11-10] MEDS: HydroxyUREA CAP* 500 MG CAP PO SCH ×2 (09:32→21:24)
[2017-11-10] MEDS: Acetaminophen TAB* 325 MG PO PRN (09:46)
[2017-11-10] MEDS: Ferric Gluconate IV* 100 MG in NS 0.9% 100 ML* 100 ML IVPB SCH (10:08)
[2017-11-10] MEDS: Fluticasone NASAL SPRAY 50MCG* 16 gm SPRAY BTL BOTH NARES SCH (10:08)
--- NOTE | 2017-11-10 10:43 | PN ---
Progress Note - Progress Note Date of Service: 11/10/17 SOAP: Subjective: Patient reports improved dyspnea today. Objective: Vital Signs - 12 hr Temp Pulse Resp BP Pulse Ox 11/10/17 09:00 131 25 159/89 98 11/10/17 08:01 103 21 156/71 99 11/10/17 08:00 98.7 F 125 23 98 11/10/17 07:00 121 25 160/84 98 11/10/17 06:01 18 11/10/17 06:00 91 20 98 11/10/17 05:04 20 11/10/17 05:01 83 20 139/84 99 11/10/17 05:00 99 19 99 11/10/17 04:01 84 20 144/69 98 11/10/17 04:00 100 19 98 11/10/17 03:59 97.1 F 11/10/17 03:24 99 22 98 11/10/17 03:23 20 11/10/17 03:21 20 11/10/17 03:00 101 23 145/87 98 11/10/17 02:24 21 11/10/17 02:01 100 18 128/95 100 11/10/17 02:00 87 18 99 11/10/17 01:01 91 18 137/77 100 11/10/17 01:00 98 17 99 11/10/17 00:58 22 11/10/17 00:50 22 99 11/10/17 00:01 94 19 101/52 100 11/10/17 00:00 104 21 99 11/09/17 23:34 98.0 F 11/09/17 23:32 108 17 97 11/09/17 23:01 104 29 152/77 99 11/09/17 23:00 108 28 99 O/E: Pt in NAD HEENT: PERRLA, No JVD Lungs: Diminished air entry at bases, no wheeze CVS: S1, S2+, tachycardic Abd: Soft, BS+ Ext: NO edema Neuro: NO focal defecits Laboratory Results - last 24 hr 11/08/17 11/10/17 11/10/17 12:20 04:51 04:51 WBC 50.6 H RBC 2.98 L Hgb 10.0 L Hct 33 L MCV 110 H MCH 33 H MCHC 30 L RDW 25 H Plt Count 1557 H D MPV 9.7 Sodium 139 Potassium 4.2 Chloride 101 Carbon Dioxide 33 H Anion Gap 5 BUN 22 Creatinine 0.77 Est GFR ( Amer) 87.5 Est GFR (Non-Af Amer) 72.3 BUN/Creatinine Ratio 28.6 H Glucose 149 H Calcium 8.7 IgG 664 L IgA 227 IgM 26 L Assessment: 77F with htn, hld, hypothyroid, afib, copd on home o2, myeloproliferative disorder admitted for pneumonia and copd exacerbation. Sputum culture positive for pseudomonas. Has been in afib with RVR. Plan: []
--- NOTE | 2017-11-10 11:16 | PN ---
Date of Service: 11/10/17 Critical Care Services: Interval History: 77F with htn, hld, hypothyroid, afib, copd on home o2, essential thrombocytosis admitted to the ICU for acute on chronic respiratory failure 2/2 pseudomonas pneumonia. Patient reports improved dyspnea today. Remains in rapid afib. Vital Signs: Temp Pulse Resp BP SpO2 FiO2 98.7 F 131 25 159/89 98 80 11/10/17 08:00 11/10/17 09:00 11/10/17 09:00 11/10/17 09:00 11/10/17 09:00 11/10 03:25 Physical Exam: Gen: NAD HEENT: NCAT, EOMI Lungs: cta, + ronchi worse at bases Cardiac: s1/s2, tachy, irregular Abdomen: soft, nt, nd Extremities: no edema Neuro: non-focal Fluid Balance (Past 24 Hours): I= O= Net Intake & Output 11/08/17 11/09/17 11/10/17 11/11/17 06:59 06:59 06:59 06:59 Intake Total 1241 2222 1872 150 Output Total 2850 1000 2019 Balance -1609 1222 -148 150 Weight 73.1 kg 74.2 kg 74.4 kg Intake: IV Fluids 231 732 242 ABX - VANCOMYCIN 83 Iron 120 110 Meropenem 138 445 65 NS (0.9%) 10 167 67 IVPB 710 110 ABX - VANCOMYCIN 510 Meropenem 165 110 NS (0.9%) 35 Oral 300 1490 1520 150 Output: Urine 2850 1000 2019 Emesis 0 0 Other: Estimated Void Medium # Bowel Movements 1 Estimated Stool Amount Small Small # Voids 1 ADLs: Meal Record Start: 10/22/17 22: 06 Freq: ,, Status: Active Protocol: Labs: Laboratory Results - last 24 hr 11/08/17 11/10/17 11/10/17 12:20 04:51 04:51 WBC 50.6 H RBC 2.98 L Hgb 10.0 L Hct 33 L MCV 110 H MCH 33 H MCHC 30 L RDW 25 H Plt Count 1557 H D MPV 9.7 Sodium 139 Potassium 4.2 Chloride 101 Carbon Dioxide 33 H Anion Gap 5 BUN 22 Creatinine 0.77 Est GFR ( Amer) 87.5 Est GFR (Non-Af Amer) 72.3 BUN/Creatinine Ratio 28.6 H Glucose 149 H Calcium 8.7 IgG 664 L IgA 227 IgM 26 L Impression: 77F with htn, hld, hypothyroid, afib, copd on home o2, essential thrombocytosis admitted to the icu with acute on chronic hypoxic respiratory failure 2/2 pseudomonas pneumonia, now in afib with RVR Plan: Neuro - non-focal exam CV - afib with rvr - cardizem increased yesterday to 360 - likely exacerbated by sepsis - c/w xarelto for ac - will start digoxin - c/w asa/statin - bp ok Pulm - acute on chronic resp failure - 2/2 pseudomonas pna and copd - wean high flow nasal cannula as tolerated - chest pt - flutter valve - nebulizers - taper steroids ID - pseudomonas pneumonia - sensitive to quinolones - switched to levaquin - f/u blood cultures GI - diet as tolerated Renal - renal function ok - monitor lytes Heme - essential thrombocytosis - c/w hydroxyurea per heme - on xarelto - monitor cbc Endo - c/w synthroid Ppx - gi/dvt DNR Critical Care Time: 45 mins
[2017-11-10] MEDS: Nystatin TOP POWDER* 15 GM BTL TOPICAL SCH ×3 (11:23→21:22)
[2017-11-10] MEDS ORDERED: Digoxin IV* 0.5 MG/2 ML AMP (0.25 MG/ML) IV SLOW PU ONE ×2 (11:28→17:30)
[2017-11-10] MEDS ORDERED: Digoxin IV* 0.5 MG/2 ML AMP (0.25 MG/ML) ONE (11:42)
[2017-11-10] MEDS: Morphine VIAL* 4 MG/ML VIAL (1 ml vial) IV PRN ×2 (11:50→21:26)
--- NOTE | 2017-11-10 11:51 | PN ---
Subjective Date of Service: 11/10/17 Interval History: . increased fatigue and weakness increased oxygen requirement no perceivable improvement in heart rate, with increased diltiazem dose still very fatigued and debilitated she did have some relief with morphine yesterday; will try additional doses today Clinical Data Programmer to start Digoxin; discussions regarding DNI underway. Family History: Unchanged from Admission Social History: Unchanged from Admission Past Medical History: Unchanged from Admission Objective Active Medications: . Acetaminophen (Tylenol Tab*) 650 mg PO Q6H PRN PRN Reason: FEVER/PAIN Last Admin: 11/10/17 09:46 Dose: 650 mg Albuterol/Ipratropium (Duoneb (Albuterol 2.5 Mg/Ipratropium 0.5 Mg)) 1 neb INH Q6H PRN PRN Reason: SOB/WHEEZING Last Admin: 11/10/17 03:23 Dose: 1 neb Aspirin (Aspirin 81 Mg Chew Tab*) 81 mg PO DAILY [facility] Last Admin: 11/10/17 09:28 Dose: 81 mg Atorvastatin Calcium (Lipitor*) 10 mg PO BEDTIME SONJA Last Admin: 11/09/17 21:07 Dose: 10 mg Benzonatate (Tessalon Cap*) 100 mg PO BID PRN PRN Reason: COUGH Last Admin: 11/04/17 21:57 Dose: 100 mg Cetirizine HCl (Zyrtec*) 10 mg PO DAILY [facility]; Protocol Last Admin: 11/10/17 09:28 Dose: 10 mg Cholecalciferol (Vitamin D Tab*) 1,000 units PO DAILY [facility] Last Admin: 11/10/17 09:26 Dose: 1,000 units Clotrimazole (Mycelex Michael*) 10 mg PO FIVE TIMES DAILY [facility] Last Admin: 11/10/17 09:31 Dose: 10 mg Cyanocobalamin (Vitamin B12 Tab*) 1,000 mcg PO EVERY OTHER DAY [facility] Last Admin: 11/09/17 08:38 Dose: 1,000 mcg Device (Tiotropium Inhaler Device*) 1 each INH .USE w/ SPIRIVA CAPS [facility] Digoxin (Digoxin Iv*) 0.125 mg IV SLOW PU ONCE ONE Stop: 11/10/17 17:31 Diltiazem HCl (Cardizem Cd Cap*) 360 mg PO DAILY [facility] Last Admin: 11/10/17 09:26 Dose: 360 mg Docusate Sodium (Colace Cap*) 100 mg PO BID PRN PRN Reason: CONSTIPATION Last Admin: 11/06/17 18:17 Dose: 100 mg Fluoxetine HCl (Prozac Cap*) 60 mg PO DAILY [facility] Last Admin: 11/10/17 09:26 Dose: 60 mg Fluticasone Propionate (Flonase Nasal [place] 50mcg*) 2 spray BOTH NARES DAILY [facility] Last Admin: 11/10/17 10:08 Dose: 2 spray Furosemide (Lasix Tab*) 20 mg PO MOWEFR [facility] Last Admin: 11/09/17 10:38 Dose: 20 mg Guaifenesin (Mucinex*) 1,200 mg PO BID [facility] Last Admin: 11/10/17 09:28 Dose: 1,200 mg Hydralazine HCl (Apresoline Iv*) 5 mg IV SLOW PU Q6H PRN PRN Reason: BLOOD PRESSURE Last Admin: 11/05/17 00:02 Dose: 5 mg Hydroxyurea (Hydrea Cap*) 1,500 mg PO BID [facility] Last Admin: 11/10/17 09:32 Dose: 1,500 mg Ferric Sodium Gluconate Complex 100 mg/ Sodium Chloride 108 mls @ 108 mls/hr IVPB DAILY [facility] Stop: 11/16/17 09:59 Last Admin: 11/10/17 10:08 Dose: 108 mls/hr Levofloxacin/Dextrose (Levaquin 750 Mg Ivpremix(*)) 750 mg in 150 mls @ 100 mls /hr IVPB Q24H [facility] Levothyroxine Sodium (Synthroid Tab*) 112 mcg PO 0600 [facility] Last Admin: 11/10/17 06:02 Dose: 112 mcg Lisinopril (Prinivil Tab*) 40 mg PO DAILY [facility] Last Admin: 11/10/17 09:28 Dose: 40 mg Loperamide HCl (Imodium Cap*) 2 mg PO TID PRN PRN Reason: DIARRHEA Lorazepam (Ativan Tab(*)) 0.5 mg PO Q4H PRN PRN Reason: ANXIETY Last Admin: 11/10/17 03:21 Dose: 0.5 mg Magnesium Oxide (Magox 400 Tab*) 400 mg PO DAILY [facility] Last Admin: 11/10/17 09:30 Dose: 400 mg Methylprednisolone Sodium Succinate (Solu-Medrol 40 Mg) 20 mg IV Q12H [facility] Last Admin: 11/10/17 03:41 Dose: 20 mg Mometasone Furoate/Formoterol Fumar (Dulera 200/5 Mdi*) 2 puff INH BID [facility]; Protocol Last Admin: 11/10/17 07:48 Dose: 2 puff Montelukast Sodium (Singulair Tab*) 10 mg PO BEDTIME [facility] Last Admin: 11/09/17 21:07 Dose: 10 mg Morphine Sulfate (Morphine Vial*) 2 mg IV Q6H PRN PRN Reason: PAIN - MILD Last Admin: 11/09/17 10:03 Dose: 2 mg Morphine Sulfate (Morphine Vial*) 4 mg IV Q4HR PRN PRN Reason: dyspnea Multivitamins/Minerals (Theragran/Minerals Tab*) 1 tab PO DAILY [facility] Last Admin: 11/10/17 09:29 Dose: 1 tab Nystatin (Nystatin Top Powder*) 1 applic TOPICAL TID [facility] Last Admin: 11/10/17 11:23 Dose: Not Given Omeprazole (Prilosec Cap*) 20 mg PO 0730 [facility] Last Admin: 11/10/17 09:28 Dose: 20 mg Ondansetron HCl (Zofran 40 Mg Vial*) 4 mg IV Q6H PRN PRN Reason: NAUSEA Rivaroxaban (Xarelto(*)) 10 mg PO DAILY [facility] Last Admin: 11/10/17 09:29 Dose: 10 mg Tiotropium [place] (Spiriva Cap.Inh*) 1 cap INH DAILY [facility] Last Admin: 11/10/17 07:48 Dose: 1 cap.inh . Vital Signs - 8 hr 11/10/17 11/10/17 11/10/17 03:59 04:00 04:01 Temperature 97.1 F Pulse Rate 100 84 Respiratory 19 20 Rate Blood Pressure 144/69 (mmHg) O2 Sat by Pulse 98 98 Oximetry 11/10/17 11/10/17 11/10/17 05:00 05:01 05:04 Temperature Pulse Rate 99 83 Respiratory 19 20 20 Rate Blood Pressure 139/84 (mmHg) O2 Sat by Pulse 99 99 Oximetry 11/10/17 11/10/17 11/10/17 06:00 06:01 07:00 Temperature Pulse Rate 91 121 Respiratory 20 18 25 Rate Blood Pressure 160/84 (mmHg) O2 Sat by Pulse 98 98 Oximetry 11/10/17 11/10/17 11/10/17 08:00 08:01 09:00 Temperature 98.7 F Pulse Rate 125 103 131 Respiratory 23 21 25 Rate Blood Pressure 156/71 159/89 (mmHg) O2 Sat by Pulse 98 99 98 Oximetry Oxygen Devices in Use Now: High Flow Heated Nasal Cannula Appearance: elderly, frail. Ears/Nose/Mouth/Throat: Clear Oropharnyx Neck: NL Appearance and Movements; NL JVP Respiratory: Symmetrical Chest Expansion and Respiratory Effort - poor air movement Cardiovascular: NL Sounds; No Murmurs; No JVD Abdominal: NL Sounds; No Tenderness; No Distention Lymphatic: No Cervical Adenopathy Extremities: No Edema Skin: No Rash or Ulcers Neurological: Alert and Oriented x 3 Lines/Tubes/Other Access: Clean, Dry and Intact PICC Line Nutrition: Taking PO's Result Diagrams: 11/10/17 04:51 11/10/17 04:51 Microbiology and Other Data: Microbiology 10/22/17 17:42 Aerobic Blood Culture - Preliminary Blood Venous No Growth Day 2 Anaerobic Blood Culture - Preliminary No Growth Day 2 10/22/17 17:42 Aerobic Blood Culture - Preliminary Blood Venous No Growth Day 2 Anaerobic Blood Culture - Preliminary No Growth Day 2 Assess/Plan/Problems-Billing ASSESSMENT: Ms Keita is a 77 yo F who has a h/o COPD and chronic hypoxic respiratory failure (on home oxygen), AF, HTN, hypothyroidism, HLD, anxiety disorder, and chronic leukocytosis and 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 * h/p PNA and PE in the past * recent hospitalization 09/2017 for COPD exacerbation, sepsis/pneumonia, * significant anemia, attributed to hydrea side effect, medication was held, thrombocytosis worsened requiring restarting / increasing dose of Hydrea * CT chest showed RML consolidation, mucus plugging in areas of bronchiectasis in left lower lobe. Continued A.fib with RVR ; cardizem near max dose Sputum cx shows Pseudomonas susceptible to Cipro Leucocytosis and thrombocytosis worsening, hydrea increased Heme f/u appreciated; c/w Xarelto; Received ASA given thrombocytosis c/w Lasix as needed - Patient Problems (1) Atrial fibrillation Current Visit: Yes Status: Chronic Priority: High Code(s): I48.91 - UNSPECIFIED ATRIAL FIBRILLATION Comment: - Frequently rapid - Rivaroxaban decreased to 10 mg until platelets <1,000,000. - Diltiazem increased to 360 mg PO Daily - Added digoxin given ongoing tachycardia (2) COPD exacerbation Current Visit: Yes Status: Acute Priority: High Code(s): J44.1 - CHRONIC OBSTRUCTIVE PULMONARY DISEASE W (ACUTE) EXACERBATION Comment: - Was on Meropenem --> changed to Levoquin - Solumedrol taper to 20mg q 12 hrs - c/w nebs, incentive spirometry - c/w FiO2 taper as tolerated - OOB to chair, ambulate as tolerated (3) Anemia Current Visit: Yes Status: Acute Code(s): D64.9 - ANEMIA, UNSPECIFIED SNOMED Code(s): 634038581 Comment: - stable - continuing hydrea (4) Anxiety Current Visit: Yes Status: Acute Code(s): F41.9 - ANXIETY DISORDER, UNSPECIFIED SNOMED Code(s): 25897682 Comment: - Appreciate Psych consult - fluoxetine increased from 40 to 60mg - lorazaepam PRN added - can consider buspar- I have not added given the better control secondary to interventions above (5) Essential thrombocythemia Current Visit: Yes Status: Acute Code(s): D47.3 - ESSENTIAL (HEMORRHAGIC) THROMBOCYTHEMIA SNOMED Code(s): 605072484 Comment: Leucocytosis and thrombocytosis marginally better after hydrea increased Heme f/u appreciated c/w Xarelto Received ASA given thrombocytosis (6) Full code status Current Visit: Yes Status: Acute Priority: High Code(s): Z78.9 - OTHER SPECIFIED HEALTH STATUS Comment: - consider DNR/DNI...Dr. Ramirez to have conversation. (7) Respiratory failure Current Visit: Yes Status: Acute Code(s): J96.90 - RESPIRATORY FAILURE, UNSP , UNSP W HYPOXIA OR HYPERCAPNIA SNOMED Code(s): 114658476 Comment: - On Vapotherm 15L on 11/08 - Intermittent improvement - regressed AM of 11/09 - Taper methylprednisolone to 20 mg q 12 hr - Sputum cx shows Pseudomonas susceptible to Cipro (Levoquin) (8) Chronic respiratory failure Current Visit: Yes Status: Chronic Code(s): J96.10 - CHRONIC RESPIRATORY FAILURE, UNSP W HYPOXIA OR HYPERCAPNIA SNOMED Code(s): 51910160 Comment: - Acute on chronic hypoxic respitatory failure, increased O2 needs intermittently - Continue supplemental O2. - Secondary to COPD - O2 and steroid dependent (5 mg prednisone at baseline) (9) History of pulmonary embolus (PE) Current Visit: No Status: Chronic Priority: High Code(s): Z86.711 - PERSONAL HISTORY OF PULMONARY EMBOLISM Comment: - Continue xarelto, note reduced dose as above. Status and Disposition: Inpatient.
[2017-11-10] MEDS: Levofloxacin 750 MG IVPREMIX(* 750 MG/150 ML BAG IVPB SCH (11:53)
[2017-11-10] MEDS: Montelukast Sodium TAB* 10 MG PO SCH (21:25)
[2017-11-10] MEDS: Atorvastatin* 10 MG TAB PO SCH (21:25)
[2017-11-11] MEDS: methylPREDNISolone SOD 40 MG* 1 ML VIAL IV SCH ×2 (03:37→15:50)
[2017-11-11] MEDS: Albuterol/Ipratropium NEB.SOL* Albuterol 2.5 MG/Ipratropium 0.5 MG 3 ML INH PRN ×4 (03:50→20:33)
[2017-11-11] MEDS: LORazepam TAB(*) 0.5 MG PO PRN ×2 (05:21→23:08)
[2017-11-11] MEDS: Levothyroxine TAB* 112 MCG TAB PO SCH (05:21)
[2017-11-11] MEDS: Clotrimazole TROCHE* 10 MG TROCHE PO SCH ×5 (05:31→23:05)
[2017-11-11 06:16] LABS: Hematocrit 34 % (35-47); Hemoglobin 10.5 g/dl (12.0-16.0); Mean Corpuscular HGB Conc 31 g/dl (31-36); Mean Corpuscular Hemoglobin 34 pg (27-31); Mean Corpuscular Volume 110 fL (80-97); Mean Platelet Volume 9.7 um3 (7.4-10.4); Platelet Count 1411 10^3/ul (150-450); Red Blood Count 3.11 10^6/ul (4.00-5.40); Red Cell Distribution Width 25 % (10.5-15); White Blood Count 43.7 10^3/ul (3.5-10.8)
[2017-11-11 06:26] LABS: EGFR Non-African American 76.9 (>60)
[2017-11-11 06:44] LABS: ABS Basophils 0 10^3/ul (0-0.2); ABS Neutrophils 27.2 10^3/ul (1.5-7.7); Monocytes % 1 % (0-7)
[2017-11-11] MEDS: Mometasone/Formoter 200/5 MDI INH SCH ×2 (07:36→20:33)
[2017-11-11] MEDS: Tiotropium CAP.INH* CAP.INH/18 MCG (USE ORDER SET !) INH SCH (07:36)
[2017-11-11] MEDS: Omeprazole CAP* 20 MG PO SCH (07:46)
[2017-11-11] MEDS: FLUoxetine CAP* 20 MG PO SCH (07:46)
[2017-11-11] MEDS: Lisinopril TAB* 10 MG PO SCH (07:47)
[2017-11-11] MEDS: Cetirizine* 10 MG TAB PO SCH (07:47)
[2017-11-11] MEDS: Multivitamins/Minerals TAB PO SCH (07:47)
[2017-11-11] MEDS: Cyanocobalamin TAB* 500 MCG PO SCH (07:47)
[2017-11-11] MEDS: Rivaroxaban TAB(*) 10 MG PO SCH (07:47)
[2017-11-11] MEDS: guaiFENesin ER TAB 600 MG PO SCH ×2 (07:47→21:01)
[2017-11-11] MEDS: Aspirin 81 mg CHEW TAB* 81 MG TAB.CHEW PO SCH (07:48)
[2017-11-11] MEDS: Cholecalciferol TAB* 1000 UNITS PO SCH (07:48)
[2017-11-11] MEDS: HydroxyUREA CAP* 500 MG CAP PO SCH ×2 (07:48→21:01)
[2017-11-11] MEDS: Diltiazem CD CAP* 180 MG PO SCH (07:48)
[2017-11-11] MEDS: Magnesium Oxide TAB* 400 MG PO SCH (07:48)
--- NOTE | 2017-11-11 07:50 | PN ---
Subjective Date of Service: 11/11/17 Interval History: . pt looks better a few beats of NSVT overnight/early this AM - no accompanying symptoms Completed DNR/DNI-MOLST update yesterday with family present. Ms. Keita is still struggling often and has significant lung disease receiving metanebs and doing well with that this AM. good spirits considering long, complicated hospitalization. . Family History: Unchanged from Admission Social History: Unchanged from Admission Past Medical History: Unchanged from Admission Objective Active Medications: . Acetaminophen (Tylenol Tab*) 650 mg PO Q6H PRN PRN Reason: FEVER/PAIN Last Admin: 11/10/17 09:46 Dose: 650 mg Albuterol/Ipratropium (Duoneb (Albuterol 2.5 Mg/Ipratropium 0.5 Mg)) 1 neb INH Q6H PRN PRN Reason: SOB/WHEEZING Last Admin: 11/11/17 07:35 Dose: 1 neb Aspirin (Aspirin 81 Mg Chew Tab*) 81 mg PO DAILY [facility] Last Admin: 11/10/17 09:28 Dose: 81 mg Atorvastatin Calcium (Lipitor*) 10 mg PO BEDTIME SONJA Last Admin: 11/10/17 21:25 Dose: 10 mg Benzonatate (Tessalon Cap*) 100 mg PO BID PRN PRN Reason: COUGH Last Admin: 11/04/17 21:57 Dose: 100 mg Cetirizine HCl (Zyrtec*) 10 mg PO DAILY [facility]; Protocol Last Admin: 11/10/17 09:28 Dose: 10 mg Cholecalciferol (Vitamin D Tab*) 1,000 units PO DAILY [facility] Last Admin: 11/10/17 09:26 Dose: 1,000 units Clotrimazole (Mycelex Michael*) 10 mg PO FIVE TIMES DAILY [facility] Last Admin: 11/11/17 05:31 Dose: 10 mg Cyanocobalamin (Vitamin B12 Tab*) 1,000 mcg PO EVERY OTHER DAY [facility] Last Admin: 11/09/17 08:38 Dose: 1,000 mcg Device (Tiotropium Inhaler Device*) 1 each INH .USE w/ SPIRIVA CAPS [facility] Diltiazem HCl (Cardizem Cd Cap*) 360 mg PO DAILY [facility] Last Admin: 11/10/17 09:26 Dose: 360 mg Docusate Sodium (Colace Cap*) 100 mg PO BID PRN PRN Reason: CONSTIPATION Last Admin: 11/06/17 18:17 Dose: 100 mg Fluoxetine HCl (Prozac Cap*) 60 mg PO DAILY [facility] Last Admin: 11/10/17 09:26 Dose: 60 mg Fluticasone Propionate (Flonase Nasal [place] 50mcg*) 2 spray BOTH NARES DAILY [facility] Last Admin: 11/10/17 10:08 Dose: 2 spray Furosemide (Lasix Tab*) 20 mg PO MOWEFR [facility] Last Admin: 11/09/17 10:38 Dose: 20 mg Guaifenesin (Mucinex*) 1,200 mg PO BID [facility] Last Admin: 11/10/17 21:25 Dose: 1,200 mg Hydralazine HCl (Apresoline Iv*) 5 mg IV SLOW PU Q6H PRN PRN Reason: BLOOD PRESSURE Last Admin: 11/05/17 00:02 Dose: 5 mg Hydroxyurea (Hydrea Cap*) 1,500 mg PO BID [facility] Last Admin: 11/10/17 21:24 Dose: 1,500 mg Ferric Sodium Gluconate Complex 100 mg/ Sodium Chloride 108 mls @ 108 mls/hr IVPB DAILY [facility] Stop: 11/16/17 09:59 Last Admin: 11/10/17 10:08 Dose: 108 mls/hr Levofloxacin/Dextrose (Levaquin 750 Mg Ivpremix(*)) 750 mg in 150 mls @ 100 mls /hr IVPB Q24H [facility] Last Admin: 11/10/17 11:53 Dose: 100 mls/hr Levothyroxine Sodium (Synthroid Tab*) 112 mcg PO 0600 [facility] Last Admin: 11/11/17 05:21 Dose: 112 mcg Lisinopril (Prinivil Tab*) 40 mg PO DAILY [facility] Last Admin: 11/10/17 09:28 Dose: 40 mg Loperamide HCl (Imodium Cap*) 2 mg PO TID PRN PRN Reason: DIARRHEA Lorazepam (Ativan Tab(*)) 0.5 mg PO Q4H PRN PRN Reason: ANXIETY Last Admin: 11/11/17 05:21 Dose: 0.5 mg Magnesium Oxide (Magox 400 Tab*) 400 mg PO DAILY [facility] Last Admin: 11/10/17 09:30 Dose: 400 mg Methylprednisolone Sodium Succinate (Solu-Medrol 40 Mg) 20 mg IV Q12H [facility] Last Admin: 11/11/17 03:37 Dose: 20 mg Mometasone Furoate/Formoterol Fumar (Dulera 200/5 Mdi*) 2 puff INH BID [facility]; Protocol Last Admin: 11/11/17 07:36 Dose: 2 puff Montelukast Sodium (Singulair Tab*) 10 mg PO BEDTIME [facility] Last Admin: 11/10/17 21:25 Dose: 10 mg Morphine Sulfate (Morphine Vial*) 2 mg IV Q6H PRN PRN Reason: PAIN - MILD Last Admin: 11/09/17 10:03 Dose: 2 mg Morphine Sulfate (Morphine Vial*) 4 mg IV Q4HR PRN PRN Reason: dyspnea Last Admin: 11/10/17 21:26 Dose: 4 mg Multivitamins/Minerals (Theragran/Minerals Tab*) 1 tab PO DAILY [facility] Last Admin: 11/10/17 09:29 Dose: 1 tab Nystatin (Nystatin Top Powder*) 1 applic TOPICAL TID [facility] Last Admin: 11/10/17 21:22 Dose: 1 applic Omeprazole (Prilosec Cap*) 20 mg PO 729 [facility] Last Admin: 11/10/17 09:28 Dose: 20 mg Ondansetron HCl (Zofran 40 Mg Vial*) 4 mg IV Q6H PRN PRN Reason: NAUSEA Rivaroxaban (Xarelto(*)) 10 mg PO DAILY [facility] Last Admin: 11/10/17 09:29 Dose: 10 mg Tiotropium [place] (Spiriva Cap.Inh*) 1 cap INH DAILY [facility] Last Admin: 11/11/17 07:36 Dose: 1 cap.inh . Vital Signs - 8 hr 11/11/17 11/11/17 11/11/17 00:00 00:10 01:00 Temperature Pulse Rate 102 83 97 Respiratory 16 16 17 Rate Blood Pressure 147/69 (mmHg) O2 Sat by Pulse 98 98 98 Oximetry 11/11/17 11/11/17 11/11/17 01:01 02:00 02:01 Temperature Pulse Rate 101 95 94 Respiratory 16 16 21 Rate Blood Pressure 148/73 125/69 (mmHg) O2 Sat by Pulse 98 98 97 Oximetry Oxygen Devices in Use Now: High Flow Heated Nasal Cannula Appearance: NAD; elderly and frail. Ears/Nose/Mouth/Throat: NL Teeth, Lips, Gums Neck: NL Appearance and Movements; NL JVP Respiratory: - - distant breath sounds c/w COPD, but no focal R/R/W. Abdominal: NL Sounds; No Tenderness; No Distention Extremities: No Edema Skin: No Rash or Ulcers Neurological: Alert and Oriented x 3 Lines/Tubes/Other Access: Clean, Dry and Intact PICC Line Nutrition: Taking PO's Result Diagrams: 11/11/17 05:57 11/11/17 05:57 Microbiology and Other Data: Microbiology 10/22/17 17:42 Aerobic Blood Culture - Preliminary Blood Venous No Growth Day 2 Anaerobic Blood Culture - Preliminary No Growth Day 2 10/22/17 17:42 Aerobic Blood Culture - Preliminary Blood Venous No Growth Day 2 Anaerobic Blood Culture - Preliminary No Growth Day 2 Assess/Plan/Problems-Billing ASSESSMENT: Ms Keita is a 77 yo F who has a h/o COPD and chronic hypoxic respiratory failure (on home oxygen), AF, HTN, hypothyroidism, HLD, anxiety disorder, and chronic leukocytosis and 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 * h/p PNA and PE in the past * recent hospitalization 09/2017 for COPD exacerbation, sepsis/pneumonia, * significant anemia, attributed to hydrea side effect, medication was held, thrombocytosis worsened requiring restarting / increasing dose of Hydrea * CT chest showed RML consolidation, mucus plugging in areas of bronchiectasis in left lower lobe. Continued A.fib with RVR ; cardizem near max dose Sputum cx shows Pseudomonas susceptible to Cipro Leucocytosis and thrombocytosis worsening, hydrea increased Heme f/u appreciated; c/w Xarelto; Received ASA given thrombocytosis c/w Lasix as needed - Patient Problems (1) Pseudomonas pneumonia Current Visit: Yes Status: Acute Priority: High Comment: - Continue Levofloxacin 750 mg IV Daily - Continue other respiratory therapies (2) Atrial fibrillation Current Visit: Yes Status: Chronic Priority: High Code(s): I48.91 - UNSPECIFIED ATRIAL FIBRILLATION Comment: - Frequently rapid - Rivaroxaban decreased to 10 mg until platelets <1,000,000. - Diltiazem increased to 360 mg PO Daily - Added digoxin given ongoing tachycardia (3) COPD exacerbation Current Visit: Yes Status: Acute Priority: High Code(s): J44.1 - CHRONIC OBSTRUCTIVE PULMONARY DISEASE W (ACUTE) EXACERBATION Comment: - Was on Meropenem --> changed to Levoquin considering pseudomonas sensitivities - Solumedrol taper to 20mg q 12 hrs - c/w nebs, incentive spirometry - c/w FiO2 taper as tolerated - OOB to chair, ambulate as tolerated (4) Anemia Current Visit: Yes Status: Acute Code(s): D64.9 - ANEMIA, UNSPECIFIED SNOMED Code(s): 158671679 Comment: - stable - continuing hydrea (5) Anxiety Current Visit: Yes Status: Acute Code(s): F41.9 - ANXIETY DISORDER, UNSPECIFIED SNOMED Code(s): 18936645 Comment: - Appreciate Psych consult - fluoxetine increased from 40 to 60 mg - lorazaepam PRN added - can consider buspar - I have not added given the better control achieved by the interventions above (6) Essential thrombocythemia Current Visit: Yes Status: Acute Code(s): D47.3 - ESSENTIAL (HEMORRHAGIC) THROMBOCYTHEMIA SNOMED Code(s): 288335664 Comment: Leucocytosis and thrombocytosis marginally better after hydrea increased Heme f/u appreciated c/w Xarelbriana Received ASA given thrombocytosis plts down to 1.4M on 11/11/2017 from 1.9M two days earlier. (7) Respiratory failure Current Visit: Yes Status: Acute Code(s): J96.90 - RESPIRATORY FAILURE, UNSP , UNSP W HYPOXIA OR HYPERCAPNIA SNOMED Code(s): 563567256 Comment: - On Vapotherm 15L on 11/08 - Intermittent improvement - regressed AM of 11/09 - Taper methylprednisolone to 20 mg q 12 hr - Sputum cx shows Pseudomonas susceptible to Cipro (Levoquin) (8) Chronic respiratory failure Current Visit: Yes Status: Chronic Code(s): J96.10 - CHRONIC RESPIRATORY FAILURE, UNSP W HYPOXIA OR HYPERCAPNIA SNOMED Code(s): 87274261 Comment: - Acute on chronic hypoxic respitatory failure, increased O2 needs intermittently - Continue supplemental O2. - Secondary to COPD - O2 and steroid dependent (5 mg prednisone at baseline) (9) History of pulmonary embolus (PE) Current Visit: No Status: Chronic Priority: High Code(s): Z86.711 - PERSONAL HISTORY OF PULMONARY EMBOLISM Comment: - Continue xarelto, note reduced dose as above. Status and Disposition: Inpatient.
--- NOTE | 2017-11-11 07:57 | PN ---
Date of Service: 11/11/17 Critical Care Services: Interval History: 77F with htn, hld, hypothyroid, afib, copd on home o2, essential thrombocytosis admitted to the ICU for acute on chronic respiratory failure 2/2 pseudomonas pneumonia. Afib with RVR. 11/11: Yesterday. Abx switched to levaquin. Digoxin started. Dig level 0.8 this AM. HFNC down to 50% FiO2 from 80% yesterday. Vital Signs: Temp Pulse Resp BP SpO2 FiO2 98.6 F 111 19 164/56 97 50 11/11/17 07:44 11/11/17 07:01 11/11/17 07:01 11/11/17 07:01 11/11/17 07:01 11/11 03:58 Physical Exam: Gen: NAD HEENT: ncat, eomi Lungs: +ronchi, worse on left Cardiac: irregular Abdomen: soft, nt Extremities: trace edema Neuro: non-focal Fluid Balance (Past 24 Hours): I= O= Net Intake & Output 11/09/17 11/10/17 11/11/17 11/12/17 06:59 06:59 06:59 06:59 Intake Total 2222 1872 1936 Output Total 1000 2020 550 Balance 1222 -148 1386 Weight 74.2 kg 74.4 kg Intake: IV Fluids 732 242 300 ABX - LEVAQUIN 160 Iron 120 110 115 Meropenem 445 65 NS (0.9%) 167 67 25 IVPB 110 Meropenem 110 Oral 1490 1520 1050 Packed Cells 586 Output: Urine 1000 2020 550 Emesis 0 0 0 Other: Estimated Void Medium Large # Bowel Movements 1 Estimated Stool Amount Small # Voids 1 1 Labs: Laboratory Results - last 24 hr 11/11/17 11/11/17 05:57 05:57 WBC 43.7 H RBC 3.11 L Hgb 10.5 L Hct 34 L MCV 110 H MCH 34 H MCHC 31 RDW 25 H Plt Count 1411 H D MPV 9.7 Neut % (Auto) Not Reportable Lymph % (Auto) Not Reportable [place] % (Auto) Not Reportable Eos % (Auto) Not Reportable Baso % (Auto) Not Reportable Absolute Neuts (auto) 27.2 H Absolute Lymphs (auto) Not Reportable Absolute Monos (auto) Not Reportable Absolute Eos (auto) Not Reportable Absolute Basos (auto) Not Reportable Absolute Nucleated RBC Not Reportable Immature Gran % 1 Neutrophils % 71 Lymphocytes % 27 Monocytes % 1 Eosinophils % 0 Basophils % 0 Metamyelocytes % 1 Nucleated RBC % Not Reportable Abs Neuts (Manual) 31.0 H Abs Lymphs (Manual) 11.8 H Abs Monocytes (Manual) 0.4 Absolute Eos (Manual) 0 Abs Basophils (Manual) 0 Large Platelets Present Giant Platelets Present Normal RBC Morphology Not Reportable Polychromasia 1+ Macrocytosis 3+ Sodium 140 Potassium 4.7 Chloride 99 L Carbon Dioxide 35 H Anion Gap 6 BUN 24 Creatinine 0.73 Est GFR ( Amer) 93.1 Est GFR (Non-Af Amer) 76.9 BUN/Creatinine Ratio 32.9 H Glucose 151 H Calcium 9.1 Total Bilirubin 0.60 AST 31 ALT 30 Alkaline Phosphatase 45 Total Protein 5.7 L Albumin 3.4 Globulin 2.3 Albumin/Globulin Ratio 1.5 Digoxin 0.8 Impression: 77F with htn, hld, hypothyroid, afib, copd on home o2, essential thrombocytosis admitted to the icu with acute on chronic hypoxic respiratory failure 2/2 pseudomonas pneumonia, now in afib with RVR Plan: Neuro - depression/anxiety - c/w ativan prn - c/w prozac CV - afib with rvr, cad, htn - Rate better controlled with diltiazem 360 and digoxin - dig level 0.8 today - start dig 0.125 daily - c/w xarelto for ac - c/w asa/statin - c/w lisinopril Pulm - acute on chronic resp failure - 2/2 pseudomonas pna and copd - HFNC down to 50% - c/w chest pt/nebulizers/flutter valve - discontinue cough suppressants ID - pseudomonas pneumonia - sensitive to quinolones - switched to levaquin yesterday (day 10/14)- - f/u blood cultures GI - diet as tolerated Renal - renal function ok - monitor lytes Heme - essential thrombocytosis - c/w hydroxyurea per heme - on xarelto - monitor cbc Endo - c/w synthroid Ppx - gi/dvt DNR/DNI Critical Care Time: 35
[2017-11-11] MEDS: Nystatin TOP POWDER* 15 GM BTL TOPICAL SCH ×3 (10:09→21:01)
[2017-11-11] MEDS: Ferric Gluconate IV* 100 MG in NS 0.9% 100 ML* 100 ML IVPB SCH (10:18)
[2017-11-11] MEDS: Fluticasone NASAL SPRAY 50MCG* 16 gm SPRAY BTL BOTH NARES SCH (10:22)
[2017-11-11] MEDS ORDERED: Diltiazem IV VIAL* 5 MG/ML 10 ML VIAL IV SLOW PU ONE (10:30)
[2017-11-11] MEDS ORDERED: Diltiazem IV* 5 MG/ML 5 ML VIAL (for loading dose/IV Push) (25 MG) IV SLOW PU ONE (11:00)
[2017-11-11] MEDS: Levofloxacin 750 MG IVPREMIX(* 750 MG/150 ML BAG IVPB SCH (11:38)
[2017-11-11] MEDS: Morphine VIAL* 4 MG/ML VIAL (1 ml vial) IV PRN (14:53)
[2017-11-11] MEDS: Digoxin TAB* 0.125 MG PO SCH (15:50)
[2017-11-11] MEDS: Atorvastatin* 10 MG TAB PO SCH (21:00)
[2017-11-11] MEDS: Montelukast Sodium TAB* 10 MG PO SCH (21:00)
[2017-11-12] MEDS: methylPREDNISolone SOD 40 MG* 1 ML VIAL IV SCH ×2 (03:38→09:10)
[2017-11-12 04:39] LABS: Hematocrit 34 % (35-47); Hemoglobin 10.2 g/dl (12.0-16.0); Mean Corpuscular HGB Conc 30 g/dl (31-36); Mean Corpuscular Hemoglobin 33 pg (27-31); Mean Corpuscular Volume 110 fL (80-97); Mean Platelet Volume 10.3 um3 (7.4-10.4); Platelet Count 1230 10^3/ul (150-450); Red Blood Count 3.05 10^6/ul (4.00-5.40); Red Cell Distribution Width 24 % (10.5-15); White Blood Count 42.8 10^3/ul (3.5-10.8)
[2017-11-12 04:40] LABS: ABS Nucleated RBC 0.1 10^3/ul; Nucleated Red Blood Cells % 0.2
[2017-11-12 04:45] LABS: EGFR Non-African American 73.4 (>60)
[2017-11-12 05:06] LABS: ABS Basophils 0 10^3/ul (0-0.2); ABS Neutrophils 25.3 10^3/ul (1.5-7.7); ABS Neutrophils 29.1 10^3/ul (1.5-7.7); Monocytes % 4 % (0-7)
[2017-11-12] MEDS: Clotrimazole TROCHE* 10 MG TROCHE PO SCH ×5 (05:27→21:58)
[2017-11-12] MEDS: Levothyroxine TAB* 112 MCG TAB PO SCH (05:27)
[2017-11-12] MEDS: Mometasone/Formoter 200/5 MDI INH SCH ×2 (07:39→19:33)
[2017-11-12] MEDS: Albuterol/Ipratropium NEB.SOL* Albuterol 2.5 MG/Ipratropium 0.5 MG 3 ML INH PRN ×3 (07:39→19:32)
[2017-11-12] MEDS: Tiotropium CAP.INH* CAP.INH/18 MCG (USE ORDER SET !) INH SCH (07:40)
--- NOTE | 2017-11-12 08:14 | PN ---
Date of Service: 11/12/17 Critical Care Services: Interval History: 77F with htn, hld, hypothyroid, afib, copd on home o2, essential thrombocytosis admitted to the ICU for acute on chronic respiratory failure 2/2 pseudomonas pneumonia. Afib with RVR. 11/11: Yesterday. Abx switched to levaquin. Digoxin started. Dig level 0.8 this AM. HFNC down to 50% FiO2 from 80% yesterday. 11/12: HR better controlled. HFNC down to 40%. Vital Signs: Temp Pulse Resp BP SpO2 FiO2 98.8 F 114 18 171/81 91 40 11/12/17 03:01 11/12/17 07:47 11/12/17 07:47 11/12/17 04:01 11/12/17 07:47 11/12 04:00 Physical Exam: Gen: NAD HEENT: ncat, eomi Lungs: +ronchi, worse on left Cardiac: irregular Abdomen: soft, nt Extremities: trace edema Neuro: non-focal Fluid Balance (Past 24 Hours): I= O= Net Intake & Output 11/10/17 11/11/17 11/12/17 11/13/17 06:59 06:59 06:59 06:59 Intake Total 1872 1936 1567 Output Total 2019 550 1700 550 Balance -148 1386 -133 -550 Weight 74.4 kg 71.4 kg Intake: IV Fluids 242 300 45 ABX - LEVAQUIN 160 30 Iron 110 115 15 Meropenem 65 NS (0.9%) 67 25 IVPB 110 322 ABX - LEVAQUIN 210 Iron 112 Meropenem 110 Oral 1520 1050 1200 Packed Cells 586 Output: Urine 2020 550 1700 550 Emesis 0 0 Other: Estimated Void Large Large # Voids 1 1 Labs: Laboratory Results - last 24 hr 11/12/17 11/12/17 04:10 04:10 WBC 42.8 H RBC 3.05 L Hgb 10.2 L Hct 34 L MCV 110 H MCH 33 H MCHC 30 L RDW 24 H Plt Count 1230 H D MPV 10.3 Neut % (Auto) Not Reportable Lymph % (Auto) Not Reportable Lake % (Auto) Not Reportable Eos % (Auto) Not Reportable Baso % (Auto) Not Reportable Absolute Neuts (auto) 25.3 H Absolute Lymphs (auto) Not Reportable Absolute Monos (auto) Not Reportable Absolute Eos (auto) Not Reportable Absolute Basos (auto) Not Reportable Absolute Nucleated RBC 0.1 Neutrophils % 68 Lymphocytes % 28 Monocytes % 4 Eosinophils % 0 Basophils % 0 Nucleated RBC % 0.2 Abs Neuts (Manual) 29.1 H Abs Lymphs (Manual) 12.0 H Abs Monocytes (Manual) 1.7 H Absolute Eos (Manual) 0 Abs Basophils (Manual) 0 Large Platelets Present Giant Platelets Present Normal RBC Morphology Not Reportable Macrocytosis 3+ Sodium 138 Potassium 4.8 Chloride 100 L Carbon Dioxide 32 Anion Gap 6 BUN 28 H Creatinine 0.76 Est GFR ( Amer) 88.8 Est GFR (Non-Af Amer) 73.4 BUN/Creatinine Ratio 36.8 H Glucose 157 H Calcium 8.9 Total Bilirubin 0.50 AST 23 ALT 24 Alkaline Phosphatase 34 Total Protein 5.3 L Albumin 3.3 Globulin 2.0 Albumin/Globulin Ratio 1.7 Digoxin 0.9 Impression: 77F with htn, hld, hypothyroid, afib, copd on home o2, essential thrombocytosis admitted to the icu with acute on chronic hypoxic respiratory failure 2/2 pseudomonas pneumonia. AFib. Plan: Neuro - depression/anxiety - c/w ativan prn - c/w prozac CV - afib with rvr, cad, htn - Rate better controlled with diltiazem 360 and digoxin - dig level 0.9 today - c/w dig 0.125 daily - c/w xarelto for ac - c/w asa/statin - c/w lisinopril Pulm - acute on chronic resp failure - 2/2 pseudomonas pna and copd - HFNC down to 40% - trial off high flow today - c/w chest pt/nebulizers/flutter valve - discontinue cough suppressants - taper steroids ID - pseudomonas pneumonia - sensitive to quinolones - switched to levaquin (day 11/13) - f/u blood cultures GI - diet as tolerated Renal - renal function ok - monitor lytes Heme - essential thrombocytosis - c/w hydroxyurea per heme - on xarelto - monitor cbc Endo - c/w synthroid Ppx - gi/dvt DNR/DNI Critical Care Time: 50
[2017-11-12] MEDS: guaiFENesin ER TAB 600 MG PO SCH ×2 (09:03→21:57)
[2017-11-12] MEDS: Cetirizine* 10 MG TAB PO SCH (09:04)
[2017-11-12] MEDS: Aspirin 81 mg CHEW TAB* 81 MG TAB.CHEW PO SCH (09:04)
[2017-11-12] MEDS: FLUoxetine CAP* 20 MG PO SCH (09:04)
[2017-11-12] MEDS: Multivitamins/Minerals TAB PO SCH (09:04)
[2017-11-12] MEDS: Omeprazole CAP* 20 MG PO SCH (09:04)
[2017-11-12] MEDS: Magnesium Oxide TAB* 400 MG PO SCH (09:04)
[2017-11-12] MEDS: Cholecalciferol TAB* 1000 UNITS PO SCH (09:04)
[2017-11-12] MEDS: Lisinopril TAB* 10 MG PO SCH (09:04)
[2017-11-12] MEDS: Fluticasone NASAL SPRAY 50MCG* 16 gm SPRAY BTL BOTH NARES SCH (09:05)
[2017-11-12] MEDS: Diltiazem CD CAP* 180 MG PO SCH (09:05)
[2017-11-12] MEDS: HydroxyUREA CAP* 500 MG CAP PO SCH ×2 (09:06→21:58)
[2017-11-12] MEDS: Rivaroxaban TAB(*) 10 MG PO SCH (09:48)
--- NOTE | 2017-11-12 10:38 | PN ---
Progress Note - Progress Note Date of Service: 11/12/17 SOAP: Subjective: []No change. Getting frustrated that breathing is not improving. Has fast HR today and will have cardiology consolation. No fevers. Eating. No chest pain. Acetaminophen (Tylenol Tab*) 650 mg PO Q6H PRN PRN Reason: FEVER/PAIN Last Admin: 11/10/17 09:46 Dose: 650 mg Albuterol/Ipratropium (Duoneb (Albuterol 2.5 Mg/Ipratropium 0.5 Mg)) 1 neb INH Q6H PRN PRN Reason: SOB/WHEEZING Last Admin: 11/12/17 07:39 Dose: 1 neb Aspirin (Aspirin 81 Mg Chew Tab*) 81 mg PO DAILY [facility] Last Admin: 11/12/17 09:04 Dose: 81 mg Atorvastatin Calcium (Lipitor*) 10 mg PO BEDTIME [facility] Last Admin: 11/11/17 21:00 Dose: 10 mg Cetirizine HCl (Zyrtec*) 10 mg PO DAILY [facility]; Protocol Last Admin: 11/12/17 09:04 Dose: 10 mg Cholecalciferol (Vitamin D Tab*) 1,000 units PO DAILY [facility] Last Admin: 11/12/17 09:04 Dose: 1,000 units Clotrimazole (Mycelex Michael*) 10 mg PO FIVE TIMES DAILY [facility] Last Admin: 11/12/17 09:05 Dose: 10 mg Cyanocobalamin (Vitamin B12 Tab*) 1,000 mcg PO EVERY OTHER DAY [facility] Last Admin: 11/11/17 07:47 Dose: 1,000 mcg Device (Tiotropium Inhaler Device*) 1 each INH .USE w/ SPIRIVA CAPS [facility] Digoxin (Lanoxin Tab*) 0.125 mg PO 1700 [facility] Last Admin: 11/11/17 15:50 Dose: 0.125 mg Diltiazem HCl (Cardizem Cd Cap*) 360 mg PO DAILY [facility] Last Admin: 11/12/17 09:05 Dose: 360 mg Docusate Sodium (Colace Cap*) 100 mg PO BID PRN PRN Reason: CONSTIPATION Last Admin: 11/06/17 18:17 Dose: 100 mg Fluoxetine HCl (Prozac Cap*) 60 mg PO DAILY [facility] Last Admin: 11/12/17 09:04 Dose: 60 mg Fluticasone Propionate (Flonase Nasal Ruth 50mcg*) 2 spray BOTH NARES DAILY [facility] Last Admin: 11/12/17 09:05 Dose: 2 spray Furosemide (Lasix Tab*) 20 mg PO MOWEFR [facility] Last Admin: 11/09/17 10:38 Dose: 20 mg Guaifenesin (Mucinex*) 1,200 mg PO BID [facility] Last Admin: 11/12/17 09:03 Dose: 1,200 mg Hydroxyurea (Hydrea Cap*) 1,500 mg PO BID [facility] Last Admin: 11/12/17 09:06 Dose: 1,500 mg Ferric Sodium Gluconate Complex 100 mg/ Sodium Chloride 108 mls @ 108 mls/hr IVPB DAILY [facility] Stop: 11/16/17 09:59 Last Admin: 11/11/17 10:18 Dose: 108 mls/hr Levofloxacin/Dextrose (Levaquin 750 Mg Ivpremix(*)) 750 mg in 150 mls @ 100 mls /hr IVPB Q24H [facility] Last Admin: 11/11/17 11:38 Dose: 100 mls/hr Levothyroxine Sodium (Synthroid Tab*) 112 mcg PO 0600 [facility] Last Admin: 11/12/17 05:27 Dose: 112 mcg Lisinopril (Prinivil Tab*) 40 mg PO DAILY [facility] Last Admin: 11/12/17 09:04 Dose: 40 mg Loperamide HCl (Imodium Cap*) 2 mg PO TID PRN PRN Reason: DIARRHEA Lorazepam (Ativan Tab(*)) 0.5 mg PO Q4H PRN PRN Reason: ANXIETY Last Admin: 11/11/17 23:08 Dose: 0.5 mg Magnesium Oxide (Magox 400 Tab*) 400 mg PO DAILY [facility] Last Admin: 11/12/17 09:04 Dose: 400 mg Methylprednisolone Sodium Succinate (Solu-Medrol 40 Mg) 20 mg IV DAILY [facility] Last Admin: 11/12/17 09:10 Dose: 20 mg Mometasone Furoate/Formoterol Fumar (Dulera 200/5 Mdi*) 2 puff INH BID [facility]; Protocol Last Admin: 11/12/17 07:39 Dose: 2 puff Montelukast Sodium (Singulair Tab*) 10 mg PO BEDTIME [facility] Last Admin: 11/11/17 21:00 Dose: 10 mg Morphine Sulfate (Morphine Vial*) 2 mg IV Q6H PRN PRN Reason: PAIN - MILD Last Admin: 11/11/17 14:53 Dose: 2 mg Morphine Sulfate (Morphine Vial*) 4 mg IV Q4HR PRN PRN Reason: dyspnea Last Admin: 11/10/17 21:26 Dose: 4 mg Multivitamins/Minerals (Theragran/Minerals Tab*) 1 tab PO DAILY [facility] Last Admin: 11/12/17 09:04 Dose: 1 tab Nystatin (Nystatin Top Powder*) 1 applic TOPICAL TID [facility] Last Admin: 11/11/17 21:01 Dose: 1 applic Omeprazole (Prilosec Cap*) 20 mg PO 0730 [facility] Last Admin: 11/12/17 09:04 Dose: 20 mg Ondansetron HCl (Zofran 40 Mg Vial*) 4 mg IV Q6H PRN PRN Reason: NAUSEA Rivaroxaban (Xarelto(*)) 10 mg PO DAILY [facility] Last Admin: 11/12/17 09:48 Dose: 10 mg Tiotropium Lorman (Spiriva Cap.Inh*) 1 cap INH DAILY [facility] Last Admin: 11/12/17 07:40 Dose: 1 cap.inh Objective: [] Vital Signs Temp Pulse Resp BP Pulse Ox 99.5 F 122 30 170/108 92 11/12/17 08:00 11/12/17 10:01 11/12/17 10:01 11/12/17 10:01 11/12/17 10:01 HEENT - vapotherm, no oral lesions. pale decreased BS, no wheezing. RRR S1S2 +BS, sitting non tender. No palpable spleen +1 YOLIE symetric AAOx 3 Bruising on hands looks better. Assessment: []77 year old with essential thrombocytosis and COPD. Prolonged hospitalization with COPD and hospital acquired pneumonia. Now stable on vapotherm and course complicated by a-fib and RVR. Has had persistent thrombocytosis and leukocytosis. I suspect that increased neutrophils and platelets underlying ET exacerbated by inflammatory state and iron deficiency. The etiology of increased lymphocytes is less clear. Plan: []1. Will continue HU to 1500 mg po BID, blood counts improving. 2. Hgb stable on increased HU, I suspect iron is helping. 3. Bruising improved and Hgb stable, will bring Xeralto back to 20 mg po daily. Discussed with pharmacy running a drug/drug interaction check. 4. Lymphocytosis. Flow cytometry is pending.
[2017-11-12] MEDS: Nystatin TOP POWDER* 15 GM BTL TOPICAL SCH ×3 (10:56→21:58)
[2017-11-12] MEDS: Ferric Gluconate IV* 100 MG in NS 0.9% 100 ML* 100 ML IVPB SCH (10:57)
[2017-11-12] MEDS: Furosemide TAB* 20 MG PO SCH (11:47)
[2017-11-12] MEDS: Levofloxacin 750 MG IVPREMIX(* 750 MG/150 ML BAG IVPB SCH (11:47)
[2017-11-12] MEDS: LORazepam TAB(*) 0.5 MG PO PRN ×2 (14:06→21:58)
[2017-11-12] MEDS: Morphine VIAL* 4 MG/ML VIAL (1 ml vial) IV PRN (15:25)
[2017-11-12] MEDS: Digoxin TAB* 0.125 MG PO SCH (17:55)
--- NOTE | 2017-11-12 17:55 | PN ---
Subjective Date of Service: 11/12/17 Interval History: . no new symptoms -- feels she is getting better -- but slowly. HR in low 100's consistently. sometime s higher plan to move to chair and perhaps out to floor in next day or so weaning oxygen as per cerner analyst consult. Family History: Unchanged from Admission Social History: Unchanged from Admission Past Medical History: Unchanged from Admission Objective Active Medications: . Acetaminophen (Tylenol Tab*) 650 mg PO Q6H PRN PRN Reason: FEVER/PAIN Last Admin: 11/10/17 09:46 Dose: 650 mg Albuterol/Ipratropium (Duoneb (Albuterol 2.5 Mg/Ipratropium 0.5 Mg)) 1 neb INH Q6H PRN PRN Reason: SOB/WHEEZING Last Admin: 11/12/17 13:29 Dose: 1 neb Aspirin (Aspirin 81 Mg Chew Tab*) 81 mg PO DAILY [facility] Last Admin: 11/12/17 09:04 Dose: 81 mg Atorvastatin Calcium (Lipitor*) 10 mg PO BEDTIME [facility] Last Admin: 11/11/17 21:00 Dose: 10 mg Cetirizine HCl (Zyrtec*) 10 mg PO DAILY [facility]; Protocol Last Admin: 11/12/17 09:04 Dose: 10 mg Cholecalciferol (Vitamin D Tab*) 1,000 units PO DAILY [facility] Last Admin: 11/12/17 09:04 Dose: 1,000 units Clotrimazole (Mycelex Michael*) 10 mg PO FIVE TIMES DAILY [facility] Last Admin: 11/12/17 15:45 Dose: Not Given Cyanocobalamin (Vitamin B12 Tab*) 1,000 mcg PO EVERY OTHER DAY [facility] Last Admin: 11/11/17 07:47 Dose: 1,000 mcg Device (Tiotropium Inhaler Device*) 1 each INH .USE w/ SPIRIVA CAPS [facility] Digoxin (Lanoxin Tab*) 0.125 mg PO 1700 [facility] Last Admin: 11/11/17 15:50 Dose: 0.125 mg Diltiazem HCl (Cardizem Cd Cap*) 360 mg PO DAILY [facility] Last Admin: 11/12/17 09:05 Dose: 360 mg Docusate Sodium (Colace Cap*) 100 mg PO BID PRN PRN Reason: CONSTIPATION Last Admin: 11/06/17 18:17 Dose: 100 mg Fluoxetine HCl (Prozac Cap*) 60 mg PO DAILY [facility] Last Admin: 11/12/17 09:04 Dose: 60 mg Fluticasone Propionate (Flonase Nasal [place] 50mcg*) 2 spray BOTH NARES DAILY [facility] Last Admin: 11/12/17 09:05 Dose: 2 spray Furosemide (Lasix Tab*) 20 mg PO MOWEFR [facility] Last Admin: 11/12/17 11:47 Dose: 20 mg Guaifenesin (Mucinex*) 1,200 mg PO BID [facility] Last Admin: 11/12/17 09:03 Dose: 1,200 mg Hydroxyurea (Hydrea Cap*) 1,500 mg PO BID [facility] Last Admin: 11/12/17 09:06 Dose: 1,500 mg Ferric Sodium Gluconate Complex 100 mg/ Sodium Chloride 108 mls @ 108 mls/hr IVPB DAILY [facility] Stop: 11/16/17 09:59 Last Admin: 11/12/17 10:57 Dose: 108 mls/hr Levofloxacin/Dextrose (Levaquin 750 Mg Ivpremix(*)) 750 mg in 150 mls @ 100 mls /hr IVPB Q24H [facility] Last Admin: 11/12/17 11:47 Dose: 100 mls/hr Levothyroxine Sodium (Synthroid Tab*) 112 mcg PO 0600 [facility] Last Admin: 11/12/17 05:27 Dose: 112 mcg Lisinopril (Prinivil Tab*) 40 mg PO DAILY [facility] Last Admin: 11/12/17 09:04 Dose: 40 mg Loperamide HCl (Imodium Cap*) 2 mg PO TID PRN PRN Reason: DIARRHEA Lorazepam (Ativan Tab(*)) 0.5 mg PO Q4H PRN PRN Reason: ANXIETY Last Admin: 11/12/17 14:06 Dose: 0.5 mg Magnesium Oxide (Magox 400 Tab*) 400 mg PO DAILY [facility] Last Admin: 11/12/17 09:04 Dose: 400 mg Methylprednisolone Sodium Succinate (Solu-Medrol 40 Mg) 20 mg IV DAILY [facility] Last Admin: 11/12/17 09:10 Dose: 20 mg Mometasone Furoate/Formoterol Fumar (Dulera 200/5 Mdi*) 2 puff INH BID [facility]; Protocol Last Admin: 11/12/17 07:39 Dose: 2 puff Montelukast Sodium (Singulair Tab*) 10 mg PO BEDTIME [facility] Last Admin: 11/11/17 21:00 Dose: 10 mg Morphine Sulfate (Morphine Vial*) 2 mg IV Q6H PRN PRN Reason: PAIN - MILD Last Admin: 11/12/17 15:25 Dose: 2 mg Morphine Sulfate (Morphine Vial*) 4 mg IV Q4HR PRN PRN Reason: dyspnea Last Admin: 11/10/17 21:26 Dose: 4 mg Multivitamins/Minerals (Theragran/Minerals Tab*) 1 tab PO DAILY [facility] Last Admin: 11/12/17 09:04 Dose: 1 tab Nystatin (Nystatin Top Powder*) 1 applic TOPICAL TID [facility] Last Admin: 11/12/17 15:29 Dose: 1 applic Omeprazole (Prilosec Cap*) 20 mg PO 0730 [facility] Last Admin: 11/12/17 09:04 Dose: 20 mg Ondansetron HCl (Zofran 40 Mg Vial*) 4 mg IV Q6H PRN PRN Reason: NAUSEA Rivaroxaban (Xarelto(*)) 20 mg PO DAILY [facility] Tiotropium Edroy (Spiriva Cap.Inh*) 1 cap INH DAILY [facility] Last Admin: 11/12/17 07:40 Dose: 1 cap.inh . Vital Signs - 8 hr 11/12/17 11/12/17 11/12/17 10:00 10:01 11:00 Temperature Pulse Rate 132 122 116 Respiratory 30 30 34 Rate Blood Pressure 170/108 (mmHg) O2 Sat by Pulse 90 92 91 Oximetry 11/12/17 11/12/17 11/12/17 11:01 11:45 12:00 Temperature 99 F Pulse Rate 118 110 Respiratory 32 23 Rate Blood Pressure 166/98 (mmHg) O2 Sat by Pulse 90 93 Oximetry Oxygen Devices in Use Now: High Flow Heated Nasal Cannula Appearance: NAD at rest - looks better than earlier Eyes: No Scleral Icterus Ears/Nose/Mouth/Throat: NL Teeth, Lips, Gums Neck: NL Appearance and Movements; NL JVP Respiratory: Symmetrical Chest Expansion and Respiratory Effort Cardiovascular: NL Sounds; No Murmurs; No JVD Abdominal: NL Sounds; No Tenderness; No Distention Lymphatic: No Cervical Adenopathy Extremities: No Edema Skin: No Rash or Ulcers Neurological: Alert and Oriented x 3 Lines/Tubes/Other Access: Clean, Dry and Intact Peripheral IV Nutrition: Taking PO's Result Diagrams: 11/12/17 04:10 11/12/17 04:10 Microbiology and Other Data: Microbiology 10/22/17 17:42 Aerobic Blood Culture - Preliminary Blood Venous No Growth Day 2 Anaerobic Blood Culture - Preliminary No Growth Day 2 10/22/17 17:42 Aerobic Blood Culture - Preliminary Blood Venous No Growth Day 2 Anaerobic Blood Culture - Preliminary No Growth Day 2 Assess/Plan/Problems-Billing ASSESSMENT: Ms Keita is a 77 yo F who has a h/o COPD and chronic hypoxic respiratory failure (on home oxygen), AF, HTN, hypothyroidism, HLD, anxiety disorder, and chronic leukocytosis and 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 * h/p PNA and PE in the past * recent hospitalization 09/2017 for COPD exacerbation, sepsis/pneumonia, * significant anemia, attributed to hydrea side effect, medication was held, thrombocytosis worsened requiring restarting / increasing dose of Hydrea * CT chest showed RML consolidation, mucus plugging in areas of bronchiectasis in left lower lobe. Continued A.fib with RVR ; cardizem near max dose Sputum cx shows Pseudomonas susceptible to Cipro Leucocytosis and thrombocytosis worsening, hydrea increased Heme f/u appreciated; c/w Xarelto; Received ASA given thrombocytosis c/w Lasix as needed - Patient Problems (1) Pseudomonas pneumonia Current Visit: Yes Status: Acute Priority: High Comment: - Continue Levofloxacin 750 mg IV Daily - Continue other respiratory therapies (2) Atrial fibrillation Current Visit: Yes Status: Chronic Priority: High Code(s): I48.91 - UNSPECIFIED ATRIAL FIBRILLATION Comment: - Frequently rapid - Rivaroxaban back to 20 mg - Diltiazem increased to 360 mg PO Daily - Added digoxin given ongoing tachycardia (3) COPD exacerbation Current Visit: Yes Status: Acute Priority: High Code(s): J44.1 - CHRONIC OBSTRUCTIVE PULMONARY DISEASE W (ACUTE) EXACERBATION Comment: - Was on Meropenem --> changed to Levoquin considering pseudomonas sensitivities - Solumedrol taper to 20mg q 12 hrs - c/w nebs, incentive spirometry - c/w FiO2 taper as tolerated - OOB to chair, ambulate as tolerated (4) Anemia Current Visit: Yes Status: Acute Code(s): D64.9 - ANEMIA, UNSPECIFIED SNOMED Code(s): 060136808 Comment: - stable - continuing hydrea (5) Anxiety Current Visit: Yes Status: Acute Code(s): F41.9 - ANXIETY DISORDER, UNSPECIFIED SNOMED Code(s): 99464799 Comment: - Appreciate Psych consult - fluoxetine increased from 40 to 60 mg - lorazaepam PRN added - can consider buspar - I have not added given the better control achieved by the interventions above (6) Essential thrombocythemia Current Visit: Yes Status: Acute Code(s): D47.3 - ESSENTIAL (HEMORRHAGIC) THROMBOCYTHEMIA SNOMED Code(s): 867348604 Comment: Leucocytosis and thrombocytosis marginally better after hydrea increased Heme f/u appreciated c/w Xarelto Received ASA given thrombocytosis plts down to 1.4M on 11/11/2017 from 1.9M two days earlier. (7) Respiratory failure Current Visit: Yes Status: Acute Code(s): J96.90 - RESPIRATORY FAILURE, UNSP , UNSP W HYPOXIA OR HYPERCAPNIA SNOMED Code(s): 406027511 Comment: - On Vapotherm 15L on 11/08 - Intermittent improvement - regressed AM of 11/09 - Taper methylprednisolone to 20 mg q 12 hr - Sputum cx shows Pseudomonas susceptible to Cipro (Levoquin) (8) Chronic respiratory failure Current Visit: Yes Status: Chronic Code(s): J96.10 - CHRONIC RESPIRATORY FAILURE, UNSP W HYPOXIA OR HYPERCAPNIA SNOMED Code(s): 44383814 Comment: - Acute on chronic hypoxic respitatory failure, increased O2 needs intermittently - Continue supplemental O2. - Secondary to COPD - O2 and steroid dependent (5 mg prednisone at baseline) (9) History of pulmonary embolus (PE) Current Visit: No Status: Chronic Priority: High Code(s): Z86.711 - PERSONAL HISTORY OF PULMONARY EMBOLISM Comment: - Continue xarelto, note reduced dose as above. Status and Disposition: Inpatient.
[2017-11-12] MEDS: Montelukast Sodium TAB* 10 MG PO SCH (21:57)
[2017-11-12] MEDS: Atorvastatin* 10 MG TAB PO SCH (21:57)
--- NOTE | 2017-11-12 22:48 | CONS ---
CC: Dr. Sanabria; Dr. Cardenas; Hospitalist Service; Dr. Whitaker * CONSULTATION REPORT: DATE OF CONSULT: 11/12/17. CABLE TOOL OPERATOR: Dr. Sanabria. HISTORY OF PRESENT ILLNESS: I was asked by haulage engine operator to see this 77-year-old female patient who had initially presented with progressive COPD. She does have have known history of severe COPD from before and also complicated with hospital- acquired pneumonia. She does have a history of thrombocytosis as well. She does have a history of systemic arterial hypertension and a brief history of paroxysmal atrial fibrillation, chronic respiratory failure, pulmonary embolism, history of hyperlipidemia, systemic arterial hypertension, palpitations and COPD. The patient apparently had presented with a progressive COPD exacerbation. She has been in the hospital since she was admitted which has been almost 3 weeks according to the patient now. The Cardiology consult was further requested because of tachycardia and the patient has been on Cardizem as I review her out patient medications, she was on atenolol 25 mg daily that was discontinued. There was heart rate up to 120, sinus but there were some brief episodes of probably AFib. She had shortness of breath which is chronic. She gives no chest pain. She is a little bit frustrated because she does not feel overall well according to her. She had been in the hospital from 10/22/17. She gives no fever, no chills, no skin rash, no tremors, no hematochezia, no nausea, no vomiting, no abdominal pain. She had an echocardiogram done through the [employer] system and that was done back in October 2016 that showed overall left ventricular systolic function to be normal, EF 60% , right ventricle normal size and function. No hemodynamically significant valvular abnormalities. PA systolic pressure was 41 mmHg. She gives no swelling of the lower extremities, no hematochezia, no skin rash, no abdominal pain, no syncope, no fever is appreciated. Her review of all other systems essentially is negative. PAST MEDICAL HISTORY: Other past medical history as outlined above with multiple medical issues. The major thing is COPD, emphysema, COPD exacerbation , brief paroxysmal atrial fibrillation. She does have also history of mildly dilated ascending aorta. MEDICATIONS: Her medications as an inpatient include the followin. She is on Tylenol 650 mg p.o. q.6 hours. 2. She is on albuterol DuoNeb. 3. Aspirin 81 mg daily. 4. Lipitor 10 mg at bedtime. 5. Zyrtec 10 mg daily. 6. Vitamin D 1000 units daily. 7. Vitamin B12 of 1000 mcg daily. 8. Digoxin 0.125 mg daily. 9. Cardizem 360 mg daily. 10. She is also on Lasix 20 mg daily. 11. Hydroxyurea 1500 twice a day. 12. Levaquin. 13. She is also on levothyroxine 112 mcg daily. 14. Lisinopril 40 mg daily. 15. Magnesium 400 mg daily. 16. Methylprednisolone 20 mg IV daily. 17. Multivitamin daily. 18. Omeprazole 20 mg daily. 19. Xarelto 20 mg daily. 20. Spiriva one inhaler daily. ALLERGIES: She is allergic to multiple medications including AMLODIPINE, AZITHROMYCIN, CLARITHROMYCIN. She is also allergic to GARLIC. FAMILY HISTORY: No family history of premature CAD. SOCIAL HISTORY: She is . She lives alone. She is a former smoker, smoked for 40 years 1/2 a pack to 1 pack daily. She quit in 1993. No history of alcohol, no history of illicit drug use. REVIEW OF SYSTEMS: Review of all other systems essentially is negative. PHYSICAL EXAM: She is awake, alert. She is not in acute distress. Her vitals , blood pressure is elevated at 172/102. Her pulse is about 120. She is in sinus rhythm with some PACs on the monitor and temperature 99 Fahrenheit today. Ear, Nose, and Throat: Essentially benign. Neck: Supple. JVP is not elevated. No carotid bruits. No masses. Chest: Diminished entry at the bases. Heart: Tachycardiac, S1, S2, no added sound, no gallops, no rubs. Abdomen: Benign. Positive bowel sounds. Extremities: No edema, no cyanosis, no clubbing. Skin Exam: Normal. Psych: Normal affect and mood. WATER PURIFIER OPERATOR: No focal deficits appreciated. DIAGNOSTIC STUDIES/LAB DATA: Sodium 138 today, potassium 4.8, chloride 100, total CO2 32, BUN 28, creatinine 0.76. AST 23, ALT 24. White blood cell 42.8, hemoglobin 10.2, hematocrit 34, platelets 1230. EKG that was done on 10/22/17 showed the patient to be in sinus rhythm. PAC is appreciated. No acute ST-T changes. IMPRESSION: The patient is a 77-year-old female with: 1. A presentation with known history of severe chronic obstructive pulmonary disease with exacerbation. 2. Thrombocytosis. 3. History of paroxysmal atrial fibrillation. She was on atenolol as an outpatient and Xarelto. Now, she is on Cardizem, Xarelto, and digoxin. 4. Complicated course with hospital-acquired pneumonia. 5. Normal left ventricular systolic function. PLAN/RECOMMENDATIONS: Her tachycardia is multifactorial in nature including anemia, thrombocytosis, pneumonia, and severe COPD exacerbation. At the present time, I would like to keep the Cardizem at the same current dose. I increased digoxin to 0.25 mg once daily, keep a close eye on digoxin level. I reintroduced her outpatient atenolol at 25 mg once daily with keeping a close eye for any wheeze or COPD exacerbation, hopefully the beta-corey will help definitely any secondary etiology as outlined above, will play an important factor in controlling her heart rate. I discussed this with the patient and I answered all her concerns and questions up to her satisfaction. Keep a close eye on her blood pressure given she is on atenolol and Cardizem. Keep electrolytes, especially potassium 4.0 or more, magnesium 2.0 or more, and hydration is important and avoid any dehydration in an elderly patient with pneumonia as well. Any further recommendations will be pending her clinical outcome. TIME SPENT: More than half of at least 60 to 65 plus minutes was [id number] in the educational counseling mode explaining all of the above and making further recommendations. [id number]/[facility] #: [id number] LYN
[2017-11-13 04:43] LABS: ABS Nucleated RBC 0.1 10^3/ul; Hematocrit 34 % (35-47); Hemoglobin 10.4 g/dl (12.0-16.0); Mean Corpuscular HGB Conc 30 g/dl (31-36); Mean Corpuscular Hemoglobin 33 pg (27-31); Mean Corpuscular Volume 109 fL (80-97); Mean Platelet Volume 10.8 um3 (7.4-10.4); Nucleated Red Blood Cells % 0.3; Platelet Count 1065 10^3/ul (150-450); Red Blood Count 3.14 10^6/ul (4.00-5.40); Red Cell Distribution Width 24 % (10.5-15)
[2017-11-13 04:49] LABS: EGFR Non-African American 75.7 (>60)
[2017-11-13 05:12] LABS: ABS Basophils 0 10^3/ul (0-0.2); ABS Neutrophils 20.1 10^3/ul (1.5-7.7); ABS Neutrophils 22.2 10^3/ul (1.5-7.7); Monocytes % 0 % (0-7)
[2017-11-13] MEDS: Levothyroxine TAB* 112 MCG TAB PO SCH (05:57)
[2017-11-13] MEDS: Clotrimazole TROCHE* 10 MG TROCHE PO SCH ×5 (05:57→20:45)
[2017-11-13] MEDS ORDERED: NS 0.9% 500 ML* 500 ML IV ONE (07:47)
--- NOTE | 2017-11-13 08:13 | PN ---
Date of Service: 11/13/17 Critical Care Services: Interval History: 77F with htn, hld, hypothyroid, afib, copd on home o2, essential thrombocytosis admitted to the ICU for acute on chronic respiratory failure 2/2 pseudomonas pneumonia. Afib with RVR. 11/11: Yesterday. Abx switched to levaquin. Digoxin started. Dig level 0.8 this AM. HFNC down to 50% FiO2 from 80% yesterday. 11/12: HR better controlled. HFNC down to 40%. 11/13: Seen by cardiology yesterday. Digoxin increased to 0.25 and atenolol 25 started. Oxygen requirements stable from yesterday. Vital Signs: Temp Pulse Resp BP SpO2 FiO2 97.5 F 92 22 182/85 90 40 11/13/17 03:28 11/13/17 06:00 11/13/17 06:16 11/13/17 06:00 11/13/17 06:00 11/13 05:48 Physical Exam: Gen: NAD HEENT: ncat, eomi Lungs: +ronchi, worse on left Cardiac: irregular Abdomen: soft, nt Extremities: trace edema Neuro: non-focal Fluid Balance (Past 24 Hours): I= O= Net Intake & Output 11/11/17 11/12/17 11/13/17 11/14/17 06:59 06:59 06:59 06:59 Intake Total 1936 1567 1830 Output Total 550 1700 2250 Balance 1386 -133 -420 Weight 71.4 kg 69.2 kg Intake: IV Fluids 300 45 ABX - LEVAQUIN 160 30 Iron 115 15 NS (0.9%) 25 IVPB 322 150 ABX - LEVAQUIN 210 150 Iron 112 Oral 1050 1200 1680 Packed Cells 586 Output: Urine 550 1700 2250 Emesis 0 Other: Estimated Void Large Large # Voids 1 1 Labs: Laboratory Results - last 24 hr 11/08/17 11/11/17 11/13/17 12:20 05:57 04:17 WBC RBC Hgb Hct MCV MCH MCHC RDW Plt Count MPV Neut % (Auto) Lymph % (Auto) [place] % (Auto) Eos % (Auto) Baso % (Auto) Absolute Neuts (auto) Absolute Lymphs (auto) Absolute Monos (auto) Absolute Eos (auto) Absolute Basos (auto) Absolute Nucleated RBC Neutrophils % Lymphocytes % Monocytes % Eosinophils % Basophils % Nucleated RBC % Abs Neuts (Manual) Abs Lymphs (Manual) Abs Monocytes (Manual) Absolute Eos (Manual) Abs Basophils (Manual) Large Platelets Giant Platelets Normal RBC Morphology Polychromasia Macrocytosis Hem Pathologist Commnt Sodium 139 Potassium 4.2 Chloride 100 L Carbon Dioxide 32 Anion Gap 7 BUN 30 H Creatinine 0.74 Est GFR ( Amer) 91.6 Est GFR (Non-Af Amer) 75.7 BUN/Creatinine Ratio 40.5 H Glucose 113 H Calcium 9.1 Magnesium 2.2 Total Protein (PEP) 6.2 L Albumin (PEP) 2.9 L Albumin/Globulin (PEP) 0.90 Ykfmv-9-Fdqdzyffb 0.5 H Qredv-9-Rvqwblgvn 0.9 Yetr-4-Wlkqzsuc 0.7 Gamma Globulins 1.1 M-Jay Not Reportable M-Jay 2 Not Reportable PEP Impression See comment Digoxin 0.9 11/13/17 04:17 WBC 39.0 H RBC 3.14 L Hgb 10.4 L Hct 34 L MCV 109 H MCH 33 H MCHC 30 L RDW 24 H Plt Count 1065 H D MPV 10.8 H Neut % (Auto) Not Reportable Lymph % (Auto) Not Reportable [place] % (Auto) Not Reportable Eos % (Auto) Not Reportable Baso % (Auto) Not Reportable Absolute Neuts (auto) 20.1 H Absolute Lymphs (auto) Not Reportable Absolute Monos (auto) Not Reportable Absolute Eos (auto) Not Reportable Absolute Basos (auto) Not Reportable Absolute Nucleated RBC 0.1 Neutrophils % 57 Lymphocytes % 43 Monocytes % 0 Eosinophils % 0 Basophils % 0 Nucleated RBC % 0.3 Abs Neuts (Manual) 22.2 H Abs Lymphs (Manual) 16.8 H Abs Monocytes (Manual) 0 Absolute Eos (Manual) 0 Abs Basophils (Manual) 0 Large Platelets Present Giant Platelets Present Normal RBC Morphology Not Reportable Polychromasia 1+ Macrocytosis 3+ Hem Pathologist Commnt Sodium Potassium Chloride Carbon Dioxide Anion Gap BUN Creatinine Est GFR ( Amer) Est GFR (Non-Af Amer) BUN/Creatinine Ratio Glucose Calcium Magnesium Total Protein (PEP) Albumin (PEP) Albumin/Globulin (PEP) Eyfaz-1-Ofzrjzdkp Cuyig-2-Dshyfnpzi Sfhk-8-Fpcstdsj Gamma Globulins M-Jay M-Jay 2 PEP Impression Digoxin Impression: 77F with htn, hld, hypothyroid, afib, copd on home o2, essential thrombocytosis admitted to the icu with acute on chronic hypoxic respiratory failure 2/2 pseudomonas pneumonia. AFib. Plan: Neuro - depression/anxiety - c/w ativan prn - c/w prozac CV - afib with rvr, cad, htn - seen by cardiology yesterday - c/w dig/cardizem/atenolol for rate control - c/w xarelto for ac - c/w asa/statin - c/w lisinopril Pulm - acute on chronic resp failure - 2/2 pseudomonas pna and copd - HFNC down to 40% - trial off high flow today - c/w chest pt/nebulizers/flutter valve - discontinue cough suppressants - taper steroids ID - pseudomonas pneumonia - sensitive to quinolones - switched to levaquin (day 8) - f/u blood cultures GI - diet as tolerated Renal - renal function ok - monitor lytes Heme - essential thrombocytosis - c/w hydroxyurea per heme - on xarelto - monitor cbc Endo - c/w synthroid Ppx - gi/dvt DNR/DNI Critical Care Time: 35
[2017-11-13] MEDS: Tiotropium CAP.INH* CAP.INH/18 MCG (USE ORDER SET !) INH SCH (09:07)
[2017-11-13] MEDS: Mometasone/Formoter 200/5 MDI INH SCH ×2 (09:07→19:43)
[2017-11-13] MEDS: HydroxyUREA CAP* 500 MG CAP PO SCH ×2 (09:14→20:42)
[2017-11-13] MEDS: methylPREDNISolone SOD 40 MG* 1 ML VIAL IV SCH (09:15)
[2017-11-13] MEDS: Atenolol TAB* 25 MG PO SCH (09:16)
[2017-11-13] MEDS: Multivitamins/Minerals TAB PO SCH (09:16)
[2017-11-13] MEDS: Lisinopril TAB* 10 MG PO SCH (09:16)
[2017-11-13] MEDS: guaiFENesin ER TAB 600 MG PO SCH ×2 (09:16→20:41)
[2017-11-13] MEDS: Aspirin 81 mg CHEW TAB* 81 MG TAB.CHEW PO SCH (09:16)
[2017-11-13] MEDS: Diltiazem CD CAP* 180 MG PO SCH (09:16)
[2017-11-13] MEDS: Rivaroxaban TAB(*) 10 MG PO SCH (09:16)
[2017-11-13] MEDS: Omeprazole CAP* 20 MG PO SCH (09:17)
[2017-11-13] MEDS: FLUoxetine CAP* 20 MG PO SCH (09:17)
[2017-11-13] MEDS: Cetirizine* 10 MG TAB PO SCH (09:17)
[2017-11-13] MEDS: Cholecalciferol TAB* 1000 UNITS PO SCH (09:17)
[2017-11-13] MEDS: Magnesium Oxide TAB* 400 MG PO SCH (09:17)
[2017-11-13] MEDS: Cyanocobalamin TAB* 500 MCG PO SCH (09:17)
[2017-11-13] MEDS: Fluticasone NASAL SPRAY 50MCG* 16 gm SPRAY BTL BOTH NARES SCH (09:18)
[2017-11-13] MEDS: Rivaroxaban TAB(*) 20 MG TAB PO SCH (09:33)
[2017-11-13] MEDS: Ferric Gluconate IV* 100 MG in NS 0.9% 100 ML* 100 ML IVPB SCH (10:34)
[2017-11-13] MEDS: Levofloxacin 750 MG IVPREMIX(* 750 MG/150 ML BAG IVPB SCH (12:01)
[2017-11-13] MEDS: Nystatin TOP POWDER* 15 GM BTL TOPICAL SCH ×3 (12:02→20:42)
[2017-11-13] MEDS: Albuterol/Ipratropium NEB.SOL* Albuterol 2.5 MG/Ipratropium 0.5 MG 3 ML INH PRN ×2 (14:19→19:43)
--- NOTE | 2017-11-13 15:51 | PN ---
Subjective Date of Service: 11/13/17 Interval History: . denies new complaints sitting at side of bed -- speaking in full sentences with family, RN and myself. eating breakfast weaning oxygen - salter cannula on now and oxygen saturations ~ 95%. plan for floor later today or tomorrow. . Family History: Unchanged from Admission Social History: Unchanged from Admission Past Medical History: Unchanged from Admission Objective Active Medications: . Acetaminophen (Tylenol Tab*) 650 mg PO Q6H PRN PRN Reason: FEVER/PAIN Last Admin: 11/10/17 09:46 Dose: 650 mg Albuterol/Ipratropium (Duoneb (Albuterol 2.5 Mg/Ipratropium 0.5 Mg)) 1 neb INH Q6H PRN PRN Reason: SOB/WHEEZING Last Admin: 11/13/17 14:19 Dose: 1 neb Aspirin (Aspirin 81 Mg Chew Tab*) 81 mg PO DAILY [facility] Last Admin: 11/13/17 09:16 Dose: 81 mg Atenolol (Tenormin Tab*) 25 mg PO DAILY [facility] Last Admin: 11/13/17 09:16 Dose: 25 mg Atorvastatin Calcium (Lipitor*) 10 mg PO BEDTIME [facility] Last Admin: 11/12/17 21:57 Dose: 10 mg Cetirizine HCl (Zyrtec*) 10 mg PO DAILY [facility]; Protocol Last Admin: 11/13/17 09:17 Dose: 10 mg Cholecalciferol (Vitamin D Tab*) 1,000 units PO DAILY [facility] Last Admin: 11/13/17 09:17 Dose: 1,000 units Clotrimazole (Mycelex Michael*) 10 mg PO FIVE TIMES DAILY [facility] Last Admin: 11/13/17 14:44 Dose: 10 mg Cyanocobalamin (Vitamin B12 Tab*) 1,000 mcg PO EVERY OTHER DAY [facility] Last Admin: 11/13/17 09:17 Dose: 1,000 mcg Device (Tiotropium Inhaler Device*) 1 each INH .USE w/ SPIRIVA CAPS [facility] Digoxin (Lanoxin Tab*) 0.25 mg PO 1700 [facility] Diltiazem HCl (Cardizem Cd Cap*) 360 mg PO DAILY [facility] Last Admin: 11/13/17 09:16 Dose: 360 mg Docusate Sodium (Colace Cap*) 100 mg PO BID PRN PRN Reason: CONSTIPATION Last Admin: 11/06/17 18:17 Dose: 100 mg Fluoxetine HCl (Prozac Cap*) 60 mg PO DAILY [facility] Last Admin: 11/13/17 09:17 Dose: 60 mg Fluticasone Propionate (Flonase Nasal [place] 50mcg*) 2 spray BOTH NARES DAILY [facility] Last Admin: 11/13/17 09:18 Dose: 2 spray Furosemide (Lasix Tab*) 20 mg PO MOWEFR [facility] Last Admin: 11/12/17 11:47 Dose: 20 mg Guaifenesin (Mucinex*) 1,200 mg PO BID [facility] Last Admin: 11/13/17 09:16 Dose: 1,200 mg Hydroxyurea (Hydrea Cap*) 1,500 mg PO BID [facility] Last Admin: 11/13/17 09:14 Dose: 1,500 mg Ferric Sodium Gluconate Complex 100 mg/ Sodium Chloride 108 mls @ 108 mls/hr IVPB DAILY [facility] Stop: 11/16/17 09:59 Last Admin: 11/13/17 10:34 Dose: 108 mls/hr Levofloxacin/Dextrose (Levaquin 750 Mg Ivpremix(*)) 750 mg in 150 mls @ 100 mls /hr IVPB Q24H [facility] Last Admin: 11/13/17 12:01 Dose: 100 mls/hr Levothyroxine Sodium (Synthroid Tab*) 112 mcg PO 0600 [facility] Last Admin: 11/13/17 05:57 Dose: 112 mcg Lisinopril (Prinivil Tab*) 40 mg PO DAILY [facility] Last Admin: 11/13/17 09:16 Dose: 40 mg Loperamide HCl (Imodium Cap*) 2 mg PO TID PRN PRN Reason: DIARRHEA Lorazepam (Ativan Tab(*)) 0.5 mg PO Q4H PRN PRN Reason: ANXIETY Last Admin: 11/12/17 21:58 Dose: 0.5 mg Magnesium Oxide (Magox 400 Tab*) 400 mg PO DAILY [facility] Last Admin: 11/13/17 09:17 Dose: 400 mg Methylprednisolone Sodium Succinate (Solu-Medrol 40 Mg) 20 mg IV DAILY [facility] Last Admin: 11/13/17 09:15 Dose: 20 mg Mometasone Furoate/Formoterol Fumar (Dulera 200/5 Mdi*) 2 puff INH BID [facility]; Protocol Last Admin: 11/13/17 09:07 Dose: 2 puff Montelukast Sodium (Singulair Tab*) 10 mg PO BEDTIME [facility] Last Admin: 11/12/17 21:57 Dose: 10 mg Morphine Sulfate (Morphine Vial*) 2 mg IV Q6H PRN PRN Reason: PAIN - MILD Last Admin: 11/12/17 15:25 Dose: 2 mg Morphine Sulfate (Morphine Vial*) 4 mg IV Q4HR PRN PRN Reason: dyspnea Last Admin: 11/10/17 21:26 Dose: 4 mg Multivitamins/Minerals (Theragran/Minerals Tab*) 1 tab PO DAILY [facility] Last Admin: 11/13/17 09:16 Dose: 1 tab Nystatin (Nystatin Top Powder*) 1 applic TOPICAL TID [facility] Last Admin: 11/13/17 14:45 Dose: Not Given Omeprazole (Prilosec Cap*) 20 mg PO 0730 [facility] Last Admin: 11/13/17 09:17 Dose: 20 mg Ondansetron HCl (Zofran 40 Mg Vial*) 4 mg IV Q6H PRN PRN Reason: NAUSEA Rivaroxaban (Xarelto(*)) 20 mg PO DAILY [facility] Last Admin: 11/13/17 09:33 Dose: 20 mg Tiotropium Redfox (Spiriva Cap.Inh*) 1 cap INH DAILY [facility] Last Admin: 11/13/17 09:07 Dose: 1 cap.inh . Vital Signs - 8 hr 11/13/17 11/13/17 11/13/17 08:00 08:30 09:00 Temperature 98.9 F Pulse Rate 83 97 Respiratory 30 26 Rate Blood Pressure 167/81 (mmHg) O2 Sat by Pulse 93 92 Oximetry Oxygen Devices in Use Now: High Flow Heated Nasal Cannula Appearance: NAD at this time Eyes: No Scleral Icterus Ears/Nose/Mouth/Throat: NL Teeth, Lips, Gums Neck: NL Appearance and Movements; NL JVP Respiratory: Symmetrical Chest Expansion and Respiratory Effort - distant breath sounds, no focal R/R/W now. Cardiovascular: NL Sounds; No Murmurs; No JVD, - - tachycardia noted -- irr irr. Abdominal: NL Sounds; No Tenderness; No Distention Lymphatic: No Cervical Adenopathy Extremities: No Edema Skin: No Rash or Ulcers Neurological: Alert and Oriented x 3 Lines/Tubes/Other Access: Clean, Dry and Intact PICC Line Nutrition: Taking PO's Result Diagrams: 11/13/17 04:17 11/13/17 04:17 Microbiology and Other Data: Microbiology 10/22/17 17:42 Aerobic Blood Culture - Preliminary Blood Venous No Growth Day 2 Anaerobic Blood Culture - Preliminary No Growth Day 2 10/22/17 17:42 Aerobic Blood Culture - Preliminary Blood Venous No Growth Day 2 Anaerobic Blood Culture - Preliminary No Growth Day 2 Assess/Plan/Problems-Billing ASSESSMENT: Ms Keita is a 77 yo F who has a h/o COPD and chronic hypoxic respiratory failure (on home oxygen), AF, HTN, hypothyroidism, HLD, anxiety disorder, and chronic leukocytosis and 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 * h/p PNA and PE in the past * recent hospitalization 09/2017 for COPD exacerbation, sepsis/pneumonia, * significant anemia, attributed to hydrea side effect, medication was held, thrombocytosis worsened requiring restarting / increasing dose of Hydrea * CT chest showed RML consolidation, mucus plugging in areas of bronchiectasis in left lower lobe. Continued A.fib with RVR ; cardizem near max dose /digoxin and atenolol on as well. Sputum cx shows Pseudomonas, susceptible to Cipro Leucocytosis and thrombocytosis worsening, hydrea increased --> improvement noted (high plt ~ 1.9M) Heme f/u appreciated; c/w Xarelto; Received ASA given thrombocytosis c/w Lasix as needed for fluid management weight 69kg on 11/13/17. . - Patient Problems (1) Pseudomonas pneumonia Current Visit: Yes Status: Acute Priority: High Comment: - Continue Levofloxacin 750 mg IV Daily - Continue other respiratory therapies (2) Atrial fibrillation Current Visit: Yes Status: Chronic Priority: High Code(s): I48.91 - UNSPECIFIED ATRIAL FIBRILLATION Comment: - Frequently rapid - Rivaroxaban back to 20 mg - Diltiazem increased to 360 mg PO Daily; Atenolol 20 mg PO daily. - Added digoxin given ongoing tachycardia -- now increased to 0.25 mg daily. Following levels. (3) COPD exacerbation Current Visit: Yes Status: Acute Priority: High Code(s): J44.1 - CHRONIC OBSTRUCTIVE PULMONARY DISEASE W (ACUTE) EXACERBATION Comment: - Was on Meropenem --> changed to Levoquin considering pseudomonas sensitivities - Solumedrol taper to 20mg q 12 hrs - c/w nebs, incentive spirometry - c/w FiO2 taper as tolerated - OOB to chair, ambulate as tolerated (4) Anemia Current Visit: Yes Status: Acute Priority: High Code(s): D64.9 - ANEMIA, UNSPECIFIED Comment: - stable - continuing hydrea (5) Anxiety Current Visit: Yes Status: Acute Priority: High Code(s): F41.9 - ANXIETY DISORDER, UNSPECIFIED Comment: - Appreciate Psych consult - fluoxetine increased from 40 to 60 mg - lorazaepam PRN added - can consider buspar - I have not added given the better control achieved by the interventions above (6) Essential thrombocythemia Current Visit: Yes Status: Acute Priority: High Code(s): D47.3 - ESSENTIAL (HEMORRHAGIC) THROMBOCYTHEMIA Comment: Leucocytosis and thrombocytosis marginally better after hydrea increased Heme f/u appreciated c/w Xarelto - platelets now ~ 1M (11/13) and downwardly trending. ASA given thrombocytosis plts down to 1.4M on 11/11/2017 from 1.9M two days earlier (~1 Million on 11/13) (7) Respiratory failure Current Visit: Yes Status: Acute Priority: High Code(s): J96.90 - RESPIRATORY FAILURE, UNSP, UNSP W HYPOXIA OR HYPERCAPNIA Comment: - Off Vapotherm 11/13 --> NC salter - methylprednisone to predisone 11/14. - Sputum cx shows Pseudomonas susceptible to Cipro (Levoquin) (8) Chronic respiratory failure Current Visit: Yes Status: Chronic Code(s): J96.10 - CHRONIC RESPIRATORY FAILURE, UNSP W HYPOXIA OR HYPERCAPNIA SNOMED Code(s): 08603626 Comment: - Acute on chronic hypoxic respitatory failure, increased O2 needs intermittently - Continue supplemental O2. - Secondary to COPD - O2 and steroid dependent (5 mg prednisone at baseline) (9) History of pulmonary embolus (PE) Current Visit: No Status: Chronic Priority: High Code(s): Z86.711 - PERSONAL HISTORY OF PULMONARY EMBOLISM Comment: - Continue xarelto, note reduced dose as above. Status and Disposition: Inpatient.
[2017-11-13] MEDS: Digoxin TAB* 0.25 MG PO SCH (17:20)
[2017-11-13] MEDS: Montelukast Sodium TAB* 10 MG PO SCH (20:40)
[2017-11-13] MEDS: Atorvastatin* 10 MG TAB PO SCH (20:40)
[2017-11-14] MEDS: LORazepam TAB(*) 0.5 MG PO PRN ×2 (00:07→21:47)
[2017-11-14 04:41] LABS: Hematocrit 34 % (35-47); Hemoglobin 10.6 g/dl (12.0-16.0); Mean Corpuscular HGB Conc 31 g/dl (31-36); Mean Corpuscular Hemoglobin 34 pg (27-31); Mean Corpuscular Volume 110 fL (80-97); Mean Platelet Volume 11.1 um3 (7.4-10.4); Platelet Count 924 10^3/ul (150-450); Red Blood Count 3.11 10^6/ul (4.00-5.40); Red Cell Distribution Width 24 % (10.5-15); White Blood Count 33.8 10^3/ul (3.5-10.8)
[2017-11-14 04:56] LABS: EGFR Non-African American 79.4 (>60)
[2017-11-14 05:00] LABS: ABS Basophils 0.3 10^3/ul (0-0.2); ABS Neutrophils 14.5 10^3/ul (1.5-7.7); Monocytes % 0 % (0-7)
[2017-11-14] MEDS: Clotrimazole TROCHE* 10 MG TROCHE PO SCH ×5 (06:02→21:48)
[2017-11-14] MEDS: Levothyroxine TAB* 112 MCG TAB PO SCH (06:02)
[2017-11-14] MEDS: FLUoxetine CAP* 20 MG PO SCH (08:17)
[2017-11-14] MEDS: Atenolol TAB* 25 MG PO SCH (08:17)
[2017-11-14] MEDS: Tiotropium CAP.INH* CAP.INH/18 MCG (USE ORDER SET !) INH SCH (08:18)
[2017-11-14] MEDS: methylPREDNISolone SOD 40 MG* 1 ML VIAL IV SCH (08:18)
[2017-11-14] MEDS: predniSONE TAB* 10 MG PO SCH (08:18)
[2017-11-14] MEDS: Lisinopril TAB* 10 MG PO SCH (08:19)
[2017-11-14] MEDS: guaiFENesin ER TAB 600 MG PO SCH ×2 (08:19→21:48)
[2017-11-14] MEDS: Cholecalciferol TAB* 1000 UNITS PO SCH (08:20)
[2017-11-14] MEDS: Multivitamins/Minerals TAB PO SCH (08:20)
[2017-11-14] MEDS: Diltiazem CD CAP* 180 MG PO SCH (08:20)
[2017-11-14] MEDS: Omeprazole CAP* 20 MG PO SCH (08:20)
[2017-11-14] MEDS: Magnesium Oxide TAB* 400 MG PO SCH (08:20)
[2017-11-14] MEDS: Cetirizine* 10 MG TAB PO SCH (08:21)
[2017-11-14] MEDS: Nystatin TOP POWDER* 15 GM BTL TOPICAL SCH ×3 (08:22→21:50)
[2017-11-14] MEDS: Aspirin 81 mg CHEW TAB* 81 MG TAB.CHEW PO SCH (08:22)
[2017-11-14] MEDS: Fluticasone NASAL SPRAY 50MCG* 16 gm SPRAY BTL BOTH NARES SCH (08:22)
[2017-11-14] MEDS: Mometasone/Formoter 200/5 MDI INH SCH ×2 (08:23→19:47)
[2017-11-14] MEDS: Rivaroxaban TAB(*) 20 MG TAB PO SCH (09:11)
[2017-11-14] MEDS: HydroxyUREA CAP* 500 MG CAP PO SCH ×2 (09:12→21:48)
[2017-11-14] MEDS: Ferric Gluconate IV* 100 MG in NS 0.9% 100 ML* 100 ML IVPB SCH (09:12)
--- NOTE | 2017-11-14 09:34 | PN ---
Progress Note - Progress Note Date of Service: 11/14/17 SOAP: Subjective: []Feeling well, sitting up at side of bed. Has been getting OOB to chair and commode, feels very weak, but markedly better than a week ago. Feels chest PT helpful in "bringing up stuff." No complaints or questions for this press writer. Medications: Acetaminophen (Tylenol Tab*) 650 mg PO Q6H PRN PRN Reason: FEVER/PAIN Last Admin: 11/10/17 09:46 Dose: 650 mg Albuterol/Ipratropium (Duoneb (Albuterol 2.5 Mg/Ipratropium 0.5 Mg)) 1 neb INH Q6H PRN PRN Reason: SOB/WHEEZING Last Admin: 11/13/17 19:43 Dose: 1 neb Aspirin (Aspirin 81 Mg Chew Tab*) 81 mg PO DAILY [facility] Last Admin: 11/14/17 08:22 Dose: 81 mg Atenolol (Tenormin Tab*) 25 mg PO DAILY [facility] Last Admin: 11/14/17 08:17 Dose: 25 mg Atorvastatin Calcium (Lipitor*) 10 mg PO BEDTIME [facility] Last Admin: 11/13/17 20:40 Dose: 10 mg Cetirizine HCl (Zyrtec*) 10 mg PO DAILY [facility]; Protocol Last Admin: 11/14/17 08:21 Dose: 10 mg Cholecalciferol (Vitamin D Tab*) 1,000 units PO DAILY [facility] Last Admin: 11/14/17 08:20 Dose: 1,000 units Clotrimazole (Mycelex Michael*) 10 mg PO FIVE TIMES DAILY [facility] Last Admin: 11/14/17 09:11 Dose: 10 mg Cyanocobalamin (Vitamin B12 Tab*) 1,000 mcg PO EVERY OTHER DAY [facility] Last Admin: 11/13/17 09:17 Dose: 1,000 mcg Device (Tiotropium Inhaler Device*) 1 each INH .USE w/ SPIRIVA CAPS [facility] Digoxin (Lanoxin Tab*) 0.25 mg PO 1700 [facility] Last Admin: 11/13/17 17:20 Dose: 0.25 mg Diltiazem HCl (Cardizem Cd Cap*) 360 mg PO DAILY [facility] Last Admin: 11/14/17 08:20 Dose: 360 mg Docusate Sodium (Colace Cap*) 100 mg PO BID PRN PRN Reason: CONSTIPATION Last Admin: 11/06/17 18:17 Dose: 100 mg Fluoxetine HCl (Prozac Cap*) 60 mg PO DAILY [facility] Last Admin: 11/14/17 08:17 Dose: 60 mg Fluticasone Propionate (Flonase Nasal [place] 50mcg*) 2 spray BOTH NARES DAILY [facility] Last Admin: 11/14/17 08:22 Dose: 2 spray Furosemide (Lasix Tab*) 20 mg PO MOWEFR [facility] Last Admin: 11/12/17 11:47 Dose: 20 mg Guaifenesin (Mucinex*) 1,200 mg PO BID [facility] Last Admin: 11/14/17 08:19 Dose: 1,200 mg Hydroxyurea (Hydrea Cap*) 1,500 mg PO BID [facility] Last Admin: 11/14/17 09:12 Dose: 1,500 mg Ferric Sodium Gluconate Complex 100 mg/ Sodium Chloride 108 mls @ 108 mls/hr IVPB DAILY [facility] Stop: 11/16/17 09:59 Last Admin: 11/14/17 09:12 Dose: 108 mls/hr Levofloxacin/Dextrose (Levaquin 750 Mg Ivpremix(*)) 750 mg in 150 mls @ 100 mls /hr IVPB Q24H [facility] Last Admin: 11/13/17 12:01 Dose: 100 mls/hr Levothyroxine Sodium (Synthroid Tab*) 112 mcg PO 0600 [facility] Last Admin: 11/14/17 06:02 Dose: 112 mcg Lisinopril (Prinivil Tab*) 40 mg PO DAILY [facility] Last Admin: 11/14/17 08:19 Dose: 40 mg Loperamide HCl (Imodium Cap*) 2 mg PO TID PRN PRN Reason: DIARRHEA Lorazepam (Ativan Tab(*)) 0.5 mg PO Q4H PRN PRN Reason: ANXIETY Last Admin: 11/14/17 00:07 Dose: 0.5 mg Magnesium Oxide (Magox 400 Tab*) 400 mg PO DAILY [facility] Last Admin: 11/14/17 08:20 Dose: 400 mg Methylprednisolone Sodium Succinate (Solu-Medrol 40 Mg) 20 mg IV DAILY [facility] Last Admin: 11/14/17 08:18 Dose: 20 mg Mometasone Furoate/Formoterol Fumar (Dulera 200/5 Mdi*) 2 puff INH BID [facility]; Protocol Last Admin: 11/14/17 08:23 Dose: 2 puff Montelukast Sodium (Singulair Tab*) 10 mg PO BEDTIME [facility] Last Admin: 11/13/17 20:40 Dose: 10 mg Morphine Sulfate (Morphine Vial*) 2 mg IV Q6H PRN PRN Reason: PAIN - MILD Last Admin: 11/12/17 15:25 Dose: 2 mg Morphine Sulfate (Morphine Vial*) 4 mg IV Q4HR PRN PRN Reason: dyspnea Last Admin: 11/10/17 21:26 Dose: 4 mg Multivitamins/Minerals (Theragran/Minerals Tab*) 1 tab PO DAILY [facility] Last Admin: 11/14/17 08:20 Dose: 1 tab Nystatin (Nystatin Top Powder*) 1 applic TOPICAL TID [facility] Last Admin: 11/14/17 08:22 Dose: 1 applic Omeprazole (Prilosec Cap*) 20 mg PO 0730 [facility] Last Admin: 11/14/17 08:20 Dose: 20 mg Ondansetron HCl (Zofran 40 Mg Vial*) 4 mg IV Q6H PRN PRN Reason: NAUSEA Prednisone (Deltasone Tab*) 30 mg PO DAILY [facility] Last Admin: 11/14/17 08:18 Dose: 30 mg Rivaroxaban (Xarelto(*)) 20 mg PO DAILY [facility] Last Admin: 11/14/17 09:11 Dose: 20 mg Tiotropium [place] (Spiriva Cap.Inh*) 1 cap INH DAILY [facility] Last Admin: 11/14/17 08:18 Dose: 1 cap.inh Objective: [] Vital Signs Temp Pulse Resp BP Pulse Ox 97.6 F 65 19 142/68 98 11/14/17 02:57 11/14/17 07:01 11/14/17 07:01 11/14/17 07:01 11/14/17 07:01 A&Ox3, EOMI, PERRLA, LOPEZ, neuro grossly non-focal Involved in care plan, communicating clearly, in no acute distress HRI, rate controlled A.Fib on monitor LS dim. to bilat. bases L>R Right hand bruise healing Laboratory Results - last 24 hr 11/13/17 11/14/17 11/14/17 04:17 04:16 04:16 WBC 33.8 H RBC 3.11 L Hgb 10.6 L Hct 34 L MCV 110 H MCH 34 H MCHC 31 RDW 24 H Plt Count 924 H D MPV 11.1 H Neut % (Auto) Not Reportable Lymph % (Auto) Not Reportable [place] % (Auto) Not Reportable Eos % (Auto) Not Reportable Baso % (Auto) Not Reportable Absolute Neuts (auto) Not Reportable Absolute Lymphs (auto) Not Reportable Absolute Monos (auto) Not Reportable Absolute Eos (auto) Not Reportable Absolute Basos (auto) Not Reportable Absolute Nucleated RBC Not Reportable Neutrophils % 43 Lymphocytes % 56 H Monocytes % 0 Eosinophils % 0 Basophils % 1 Nucleated RBC % Not Reportable Abs Neuts (Manual) 14.5 H Abs Lymphs (Manual) 18.9 H Abs Monocytes (Manual) 0 Absolute Eos (Manual) 0 Abs Basophils (Manual) 0.3 H Smudge Cells Present Normal RBC Morphology Not Reportable Anisocytosis 2+ Hem Pathologist Commnt Cancelled Sodium 140 Potassium 4.3 Chloride 102 Carbon Dioxide 31 Anion Gap 7 BUN 31 H Creatinine 0.71 Est GFR ( Amer) 96.1 Est GFR (Non-Af Amer) 79.4 BUN/Creatinine Ratio 43.7 H Glucose 109 H Calcium 9.0 Magnesium 2.2 Digoxin 1.1 Assessment: []Complicated 77 yo female with significant cardiopulmonary disease followed by Hem/Onc d/t diagnosis of HU with significant lymphocytosis during admission. Her plt. count is responding well to high dose Hydroxyurea and we will cont this for now. Plan: []1. ET: - cont. HU @ 1500 mg PO BID for now - consider d/c'ing daily ASA with full anti-coagulation now that plt. <1 million - follow daily counts 2. Lymphocytosis: - leukopenia improving though with cont.'d shift, flow should be completed today and we will discuss with pathology - consider bone marrow biopsy once stable, may pursue as outpatient depending on flow 3. Functional Iron Def. Anemia: on ferrlecit through 11/16 4. A.Fib/COPD/PNA: management per sheeter helper and hospitalist team Discussed with Dr. Rios, sheeter helper
--- NOTE | 2017-11-14 09:42 | PN ---
Progress Note - Progress Note Date of Service: 11/14/17 Note: Progress Note - Critical Care 24 hour events: -weaned off hiflow, on NC 5 L now -comfortable, sitting on side of bed, no distress, speaks clearly, cough+ and strong, sputum+ -afebrile overnight, Bp and HR stable -family at bedside Tele: NSR with PACs Vitals: Vital Signs Temp 97.6 F 11/14/17 02:57 Pulse 77 11/14/17 09:01 Resp 27 11/14/17 09:01 BP 155/92 11/14/17 09:01 Pulse Ox 96 11/14/17 09:01 Intake & Output 11/13/17 11/14/17 11/14/17 18:59 06:59 18:59 Intake Total 1090 260 320 Output Total 800 1050 Balance 290 -790 320 Weight 152 lb 1.903 oz Intake: IV Fluids 340 ABX - LEVAQUIN 165 Iron 115 NS (0.9%) 60 Oral 750 260 320 Output: Urine 800 1050 Emesis 0 Other: Estimated Stool Amount Medium Medium O2/Vent: NC 5 L, sat 96%, rr 16 Infusions: heplock Current Medications: Acetaminophen (Tylenol Tab*) 650 mg PO Q6H PRN PRN Reason: FEVER/PAIN Last Admin: 11/10/17 09:46 Dose: 650 mg Albuterol/Ipratropium (Duoneb (Albuterol 2.5 Mg/Ipratropium 0.5 Mg)) 1 neb INH Q6H PRN PRN Reason: SOB/WHEEZING Last Admin: 11/13/17 19:43 Dose: 1 neb Aspirin (Aspirin 81 Mg Chew Tab*) 81 mg PO DAILY [facility] Last Admin: 11/14/17 08:22 Dose: 81 mg Atenolol (Tenormin Tab*) 25 mg PO DAILY [facility] Last Admin: 11/14/17 08:17 Dose: 25 mg Atorvastatin Calcium (Lipitor*) 10 mg PO BEDTIME [facility] Last Admin: 11/13/17 20:40 Dose: 10 mg Cetirizine HCl (Zyrtec*) 10 mg PO DAILY [facility]; Protocol Last Admin: 11/14/17 08:21 Dose: 10 mg Cholecalciferol (Vitamin D Tab*) 1,000 units PO DAILY [facility] Last Admin: 11/14/17 08:20 Dose: 1,000 units Clotrimazole (Mycelex Michael*) 10 mg PO FIVE TIMES DAILY [facility] Last Admin: 11/14/17 09:11 Dose: 10 mg Cyanocobalamin (Vitamin B12 Tab*) 1,000 mcg PO EVERY OTHER DAY [facility] Last Admin: 11/13/17 09:17 Dose: 1,000 mcg Device (Tiotropium Inhaler Device*) 1 each INH .USE w/ SPIRIVA CAPS [facility] Digoxin (Lanoxin Tab*) 0.25 mg PO 1700 [facility] Last Admin: 11/13/17 17:20 Dose: 0.25 mg Diltiazem HCl (Cardizem Cd Cap*) 360 mg PO DAILY [facility] Last Admin: 11/14/17 08:20 Dose: 360 mg Docusate Sodium (Colace Cap*) 100 mg PO BID PRN PRN Reason: CONSTIPATION Last Admin: 11/06/17 18:17 Dose: 100 mg Fluoxetine HCl (Prozac Cap*) 60 mg PO DAILY [facility] Last Admin: 11/14/17 08:17 Dose: 60 mg Fluticasone Propionate (Flonase Nasal [place] 50mcg*) 2 spray BOTH NARES DAILY [facility] Last Admin: 11/14/17 08:22 Dose: 2 spray Furosemide (Lasix Tab*) 20 mg PO MOWEFR [facility] Last Admin: 11/12/17 11:47 Dose: 20 mg Guaifenesin (Mucinex*) 1,200 mg PO BID [facility] Last Admin: 11/14/17 08:19 Dose: 1,200 mg Hydroxyurea (Hydrea Cap*) 1,500 mg PO BID [facility] Last Admin: 11/14/17 09:12 Dose: 1,500 mg Ferric Sodium Gluconate Complex 100 mg/ Sodium Chloride 108 mls @ 108 mls/hr IVPB DAILY [facility] Stop: 11/16/17 09:59 Last Admin: 11/14/17 09:12 Dose: 108 mls/hr Levofloxacin/Dextrose (Levaquin 750 Mg Ivpremix(*)) 750 mg in 150 mls @ 100 mls /hr IVPB Q24H [facility] Stop: 11/15/17 23:59 Last Admin: 11/13/17 12:01 Dose: 100 mls/hr Levothyroxine Sodium (Synthroid Tab*) 112 mcg PO 0600 [facility] Last Admin: 11/14/17 06:02 Dose: 112 mcg Lisinopril (Prinivil Tab*) 40 mg PO DAILY [facility] Last Admin: 11/14/17 08:19 Dose: 40 mg Loperamide HCl (Imodium Cap*) 2 mg PO TID PRN PRN Reason: DIARRHEA Lorazepam (Ativan Tab(*)) 0.5 mg PO Q4H PRN PRN Reason: ANXIETY Last Admin: 11/14/17 00:07 Dose: 0.5 mg Magnesium Oxide (Magox 400 Tab*) 400 mg PO DAILY [facility] Last Admin: 11/14/17 08:20 Dose: 400 mg Methylprednisolone Sodium Succinate (Solu-Medrol 40 Mg) 20 mg IV DAILY [facility] Last Admin: 11/14/17 08:18 Dose: 20 mg Mometasone Furoate/Formoterol Fumar (Dulera 200/5 Mdi*) 2 puff INH BID [facility]; Protocol Last Admin: 11/14/17 08:23 Dose: 2 puff Montelukast Sodium (Singulair Tab*) 10 mg PO BEDTIME [facility] Last Admin: 11/13/17 20:40 Dose: 10 mg Morphine Sulfate (Morphine Vial*) 2 mg IV Q6H PRN PRN Reason: PAIN - MILD Last Admin: 11/12/17 15:25 Dose: 2 mg Morphine Sulfate (Morphine Vial*) 4 mg IV Q4HR PRN PRN Reason: dyspnea Last Admin: 11/10/17 21:26 Dose: 4 mg Multivitamins/Minerals (Theragran/Minerals Tab*) 1 tab PO DAILY [facility] Last Admin: 11/14/17 08:20 Dose: 1 tab Nystatin (Nystatin Top Powder*) 1 applic TOPICAL TID [facility] Last Admin: 11/14/17 08:22 Dose: 1 applic Omeprazole (Prilosec Cap*) 20 mg PO 0730 [facility] Last Admin: 11/14/17 08:20 Dose: 20 mg Ondansetron HCl (Zofran 40 Mg Vial*) 4 mg IV Q6H PRN PRN Reason: NAUSEA Prednisone (Deltasone Tab*) 30 mg PO DAILY [facility] Last Admin: 11/14/17 08:18 Dose: 30 mg Rivaroxaban (Xarelto(*)) 20 mg PO DAILY [facility] Last Admin: 11/14/17 09:11 Dose: 20 mg Tiotropium [place] (Spiriva Cap.Inh*) 1 cap INH DAILY [facility] Last Admin: 11/14/17 08:18 Dose: 1 cap.inh Physical Exam: General: awake, alert, no resp distress , no diaphoresis Head: normocephalic, atraumatic HEENT: no pallor, no icterus, moist mucous membranes Neck: soft, supple, no jvd, no stridor CVS: normal rate, regular, no murmur Resp: bilateral air entry, no rhales, no wheezing, no rhonchi, no acc muscle use upper Abdomen: soft, nontender, nondistended, bowel sounds present Ext: pulses+, warm, no edema Skin: intact, no breakdown, no dryness Neuro: awake, alert, orientedx3, moving all extremities, no gross focal deficit Labs: Laboratory Results - last 24 hr 11/09/17 11/13/17 11/14/17 04:56 04:17 04:16 WBC RBC Hgb Hct MCV MCH MCHC RDW Plt Count MPV Neut % (Auto) Lymph % (Auto) [place] % (Auto) Eos % (Auto) Baso % (Auto) Absolute Neuts (auto) Absolute Lymphs (auto) Absolute Monos (auto) Absolute Eos (auto) Absolute Basos (auto) Absolute Nucleated RBC Neutrophils % Lymphocytes % Monocytes % Eosinophils % Basophils % Nucleated RBC % Abs Neuts (Manual) Abs Lymphs (Manual) Abs Monocytes (Manual) Absolute Eos (Manual) Abs Basophils (Manual) Smudge Cells Normal RBC Morphology Anisocytosis Hem Pathologist Commnt Sodium 140 Potassium 4.3 Chloride 102 Carbon Dioxide 31 Anion Gap 7 BUN 31 H Creatinine 0.71 Est GFR ( Amer) 96.1 Est GFR (Non-Af Amer) 79.4 BUN/Creatinine Ratio 43.7 H Glucose 109 H Calcium 9.0 Magnesium 2.2 Digoxin 1.1 Flow Intrp 2-8 Markers TNP Flow Intrp 9-15 Marker TNP Flow Intrp 16+ Markers 11/14/17 04:16 WBC 33.8 H RBC 3.11 L Hgb 10.6 L Hct 34 L MCV 110 H MCH 34 H MCHC 31 RDW 24 H Plt Count 924 H D MPV 11.1 H Neut % (Auto) Not Reportable Lymph % (Auto) Not Reportable [place] % (Auto) Not Reportable Eos % (Auto) Not Reportable Baso % (Auto) Not Reportable Absolute Neuts (auto) Not Reportable Absolute Lymphs (auto) Not Reportable Absolute Monos (auto) Not Reportable Absolute Eos (auto) Not Reportable Absolute Basos (auto) Not Reportable Absolute Nucleated RBC Not Reportable Neutrophils % 43 Lymphocytes % 56 H Monocytes % 0 Eosinophils % 0 Basophils % 1 Nucleated RBC % Not Reportable Abs Neuts (Manual) 14.5 H Abs Lymphs (Manual) 18.9 H Abs Monocytes (Manual) 0 Absolute Eos (Manual) 0 Abs Basophils (Manual) 0.3 H Smudge Cells Present Normal RBC Morphology Not Reportable Anisocytosis 2+ Hem Pathologist Commnt Cancelled Sodium Potassium Chloride Carbon Dioxide Anion Gap BUN Creatinine Est GFR ( Amer) Est GFR (Non-Af Amer) BUN/Creatinine Ratio Glucose Calcium Magnesium Digoxin Flow Intrp 2-8 Markers Flow Intrp 9-15 Marker Flow Intrp 16+ Markers Imaging: CT chest 10/31 RML consolidation+, areas of bronchiectasis on left lower lobe? Some developing consolidation? (official report reviewed) cxr 11/05 RML consolidation+, some left lower lobe infiltrate+ cxr 11/07 - chronic interstitial changes Assessment: 77y F pmhx of COPD on 2-3L home O2, myeloproliferative disorder/ essential thrombocytosis, hypothyroidism, Afib, HLD, HTN, h/o Pneumonia and PE in past, anxiety disorder; recent hospitalization 09/2017 at [facility] for COPD exacerbation, sepsis/pneumonia. Comes to ER 10/22 for SOB, temp 100.3, admitted for COPD exacerbation. During stay, hypoxia improved then started to worsen. Past few days noted to have increasing WBC counts, increasing fio2 requirements and respiratory distress. Noted to have new RML consolidation, confirmed on CT chest along with areas of bronchiectasis on left lower lobe. She has been upgraded to the ICU for respiratory failure. -acute on chronic hypoxic respiratory failure -acute exaccerbation of COPD -RML pneumonia and possible Left lower lobe pneumonia; pseudomonas+ -Severe Sepsis / to pneumonia -Essential thrombocytosis -Afib, with RVR -anxiety h/o PE Plan: Neuro- anxiety improved; morphine for anxiety and distress, prn xanax. delirium prec. CVS- afib now appears to be in NSR with ectopy/PACs; cont cardizem/atenolol/ dig. Cont Xarelto 20mg daily for AC for Afib/PE. cont lasix 20mg daily. Resp- acute on chronic hypoxia; oxygen req improving, on 5 L NC. steroid taper solumedrol 20mg iv daily. Bronchodilators q4h prn. DNR, not DNI, trial of intubaiton okay. Chest PT. ID- tmax 98, wbc 30s and slowly decreasing. Pseudomonas+, cont levaquin 750mg daily, day 01/14, d/c after 11/15 dose. Nystatin poweder to vulva/under breast. GI- cardiac diet. PPI po. Renal- Cr okay. Lasix 20mg daily. Heme- anemia, chronic disease? stable 8-9s. Plt decreasing, cont hydrea. cont Rivaroxaban for Afib/PE tx. discussed with heme/onc. flowcytometry sent, will need BM at some point. Endo- fingersticks as needed. po synthroid. Musculsk- oob to chair today. pressure ulcer proph. pt/ot Wounds- none Nutrition- cardiac diet DVT prophylaxis: rivaroxaban; SCDs GI prophylaxis: PPI Central Line: no Arterial Line: no [place] Cathetor: no Disposition: stable for transfer to medical floor; critical care to sign off, transfer care to medicine. Code Status: DNR, not DNI, trial of intubation salina Rios MD Outreach Rep (Electronically Signed)
[2017-11-14] MEDS: Albuterol/Ipratropium NEB.SOL* Albuterol 2.5 MG/Ipratropium 0.5 MG 3 ML INH PRN ×2 (09:47→19:51)
[2017-11-14] MEDS: Levofloxacin 750 MG IVPREMIX(* 750 MG/150 ML BAG IVPB SCH (11:06)
[2017-11-14] MEDS: Furosemide TAB* 20 MG PO SCH (11:10)
--- NOTE | 2017-11-14 12:42 | PN ---
Subjective Date of Service: 11/14/17 Interval History: Met with patient and sister in law Breathing feels improved. +cough with less sputum since yesterday +SOB with minimal exertion getting out of bed to commode off vapo x 24 hrs Family History: Unchanged from Admission Social History: Unchanged from Admission Past Medical History: Unchanged from Admission Objective Active Medications: Acetaminophen (Tylenol Tab*) 650 mg PO Q6H PRN PRN Reason: FEVER/PAIN Last Admin: 11/10/17 09:46 Dose: 650 mg Albuterol/Ipratropium (Duoneb (Albuterol 2.5 Mg/Ipratropium 0.5 Mg)) 1 neb INH Q6H PRN PRN Reason: SOB/WHEEZING Last Admin: 11/14/17 09:47 Dose: 1 neb Aspirin (Aspirin 81 Mg Chew Tab*) 81 mg PO DAILY [facility] Last Admin: 11/14/17 08:22 Dose: 81 mg Atenolol (Tenormin Tab*) 25 mg PO DAILY [facility] Last Admin: 11/14/17 08:17 Dose: 25 mg Atorvastatin Calcium (Lipitor*) 10 mg PO BEDTIME [facility] Last Admin: 11/13/17 20:40 Dose: 10 mg Cetirizine HCl (Zyrtec*) 10 mg PO DAILY [facility]; Protocol Last Admin: 11/14/17 08:21 Dose: 10 mg Cholecalciferol (Vitamin D Tab*) 1,000 units PO DAILY [facility] Last Admin: 11/14/17 08:20 Dose: 1,000 units Clotrimazole (Mycelex Michael*) 10 mg PO FIVE TIMES DAILY [facility] Last Admin: 11/14/17 09:11 Dose: 10 mg Cyanocobalamin (Vitamin B12 Tab*) 1,000 mcg PO EVERY OTHER DAY [facility] Last Admin: 11/13/17 09:17 Dose: 1,000 mcg Device (Tiotropium Inhaler Device*) 1 each INH .USE w/ SPIRIVA CAPS [facility] Digoxin (Lanoxin Tab*) 0.25 mg PO 1700 [facility] Last Admin: 11/13/17 17:20 Dose: 0.25 mg Diltiazem HCl (Cardizem Cd Cap*) 360 mg PO DAILY [facility] Last Admin: 11/14/17 08:20 Dose: 360 mg Docusate Sodium (Colace Cap*) 100 mg PO BID PRN PRN Reason: CONSTIPATION Last Admin: 11/06/17 18:17 Dose: 100 mg Fluoxetine HCl (Prozac Cap*) 60 mg PO DAILY [facility] Last Admin: 11/14/17 08:17 Dose: 60 mg Fluticasone Propionate (Flonase Nasal [place] 50mcg*) 2 spray BOTH NARES DAILY [facility] Last Admin: 11/14/17 08:22 Dose: 2 spray Furosemide (Lasix Tab*) 20 mg PO MOWEFR [facility] Last Admin: 11/14/17 11:10 Dose: 20 mg Guaifenesin (Mucinex*) 1,200 mg PO BID [facility] Last Admin: 11/14/17 08:19 Dose: 1,200 mg Hydroxyurea (Hydrea Cap*) 1,500 mg PO BID [facility] Last Admin: 11/14/17 09:12 Dose: 1,500 mg Ferric Sodium Gluconate Complex 100 mg/ Sodium Chloride 108 mls @ 108 mls/hr IVPB DAILY [facility] Stop: 11/16/17 09:59 Last Admin: 11/14/17 09:12 Dose: 108 mls/hr Levothyroxine Sodium (Synthroid Tab*) 112 mcg PO 0600 [facility] Last Admin: 11/14/17 06:02 Dose: 112 mcg Lisinopril (Prinivil Tab*) 40 mg PO DAILY [facility] Last Admin: 11/14/17 08:19 Dose: 40 mg Loperamide HCl (Imodium Cap*) 2 mg PO TID PRN PRN Reason: DIARRHEA Lorazepam (Ativan Tab(*)) 0.5 mg PO Q4H PRN PRN Reason: ANXIETY Last Admin: 11/14/17 00:07 Dose: 0.5 mg Magnesium Oxide (Magox 400 Tab*) 400 mg PO DAILY [facility] Last Admin: 11/14/17 08:20 Dose: 400 mg Mometasone Furoate/Formoterol Fumar (Dulera 200/5 Mdi*) 2 puff INH BID [facility]; Protocol Last Admin: 11/14/17 08:23 Dose: 2 puff Montelukast Sodium (Singulair Tab*) 10 mg PO BEDTIME [facility] Last Admin: 11/13/17 20:40 Dose: 10 mg Morphine Sulfate (Morphine Vial*) 2 mg IV Q6H PRN PRN Reason: PAIN - MILD Last Admin: 11/12/17 15:25 Dose: 2 mg Morphine Sulfate (Morphine Vial*) 4 mg IV Q4HR PRN PRN Reason: dyspnea Last Admin: 11/10/17 21:26 Dose: 4 mg Multivitamins/Minerals (Theragran/Minerals Tab*) 1 tab PO DAILY [facility] Last Admin: 11/14/17 08:20 Dose: 1 tab Nystatin (Nystatin Top Powder*) 1 applic TOPICAL TID [facility] Last Admin: 11/14/17 08:22 Dose: 1 applic Omeprazole (Prilosec Cap*) 20 mg PO 729 [facility] Last Admin: 11/14/17 08:20 Dose: 20 mg Ondansetron HCl (Zofran 40 Mg Vial*) 4 mg IV Q6H PRN PRN Reason: NAUSEA Prednisone (Deltasone Tab*) 30 mg PO DAILY [facility] Last Admin: 11/14/17 08:18 Dose: 30 mg Rivaroxaban (Xarelto(*)) 20 mg PO DAILY [facility] Last Admin: 11/14/17 09:11 Dose: 20 mg Tiotropium [place] (Spiriva Cap.Inh*) 1 cap INH DAILY [facility] Last Admin: 11/14/17 08:18 Dose: 1 cap.inh Vital Signs - 8 hr 11/14/17 11/14/17 11/14/17 05:00 05:01 06:00 Temperature Pulse Rate 86 83 78 Respiratory 21 22 18 Rate Blood Pressure 136/91 (mmHg) O2 Sat by Pulse 99 98 99 Oximetry 11/14/17 11/14/17 11/14/17 06:01 07:00 07:01 Temperature Pulse Rate 77 77 65 Respiratory 20 19 19 Rate Blood Pressure 167/144 142/68 (mmHg) O2 Sat by Pulse 99 99 98 Oximetry 11/14/17 11/14/17 11/14/17 08:00 09:00 09:01 Temperature Pulse Rate 77 74 77 Respiratory 20 23 27 Rate Blood Pressure 141/70 155/92 (mmHg) O2 Sat by Pulse 98 96 96 Oximetry 11/14/17 11/14/17 11/14/17 09:43 10:00 10:01 Temperature 97.3 F Pulse Rate 101 93 Respiratory 27 31 Rate Blood Pressure 146/63 (mmHg) O2 Sat by Pulse 97 97 Oximetry 11/14/17 11:00 Temperature Pulse Rate 91 Respiratory 27 Rate Blood Pressure 126/53 (mmHg) O2 Sat by Pulse 93 Oximetry Oxygen Devices in Use Now: Nasal Cannula - 5L, High Flow Nasal Cannula Appearance: sitting in chair, NAD Eyes: No Scleral Icterus, PERRLA Ears/Nose/Mouth/Throat: Clear Oropharnyx, Mucous Membranes Moist Neck: NL Appearance and Movements; NL JVP, Trachea Midline Respiratory: Symmetrical Chest Expansion and Respiratory Effort, - - wheeze anteriorly, scattered rhonchi posteriorly Cardiovascular: RRR Abdominal: NL Sounds; No Tenderness; No Distention, No Hepatosplenomegaly Lymphatic: No Cervical Adenopathy Extremities: No Edema Skin: No Rash or Ulcers Neurological: Alert and Oriented x 3 Result Diagrams: 11/14/17 04:16 11/14/17 04:16 Microbiology and Other Data: Microbiology 10/22/17 17:42 Aerobic Blood Culture - Preliminary Blood Venous No Growth Day 2 Anaerobic Blood Culture - Preliminary No Growth Day 2 10/22/17 17:42 Aerobic Blood Culture - Preliminary Blood Venous No Growth Day 2 Anaerobic Blood Culture - Preliminary No Growth Day 2 Assess/Plan/Problems-Billing ASSESSMENT: Ms Keita is a 77 yo F who has a h/o COPD and chronic hypoxic respiratory failure (on home oxygen), AF, HTN, hypothyroidism, HLD, anxiety disorder, and chronic leukocytosis and 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) who presented to the ER with c/o severe SOB and was admitted for a COPD exacerbation with stay c/b hospital acquired PNA and uncontrolled afib - Patient Problems (1) Respiratory failure Comment: -Acute on chronic (on O2 and 5mg prednisone at baseline) -NC on 5L -Transfer to 11/14 - methylprednisone and predisone given 11/14 -taper to prednisone alone 11/15 - Sputum cx shows Pseudomonas susceptible to fluroquinolone (2) Pseudomonas pneumonia Comment: - Completed 10 days Levofloxacin 11/14 - Continue other respiratory therapies (3) COPD exacerbation Comment: - completed levaquin for HCAP - prednisone 30mg qd - c/w nebs, incentive spirometry - c/w FiO2 taper as tolerated - OOB to chair, ambulate as tolerated (4) Anemia Comment: - stable - continuing hydrea (5) Anxiety Comment: - Appreciate Psych consult - fluoxetine increased from 40 to 60 mg - lorazaepam PRN added - can consider buspar - I have not added given the better control achieved by the interventions above (6) Atrial fibrillation Comment: - Rivaroxaban 20 mg - Diltiazem increased to 360 mg PO Daily; - Atenolol 20 mg PO daily. - c/w additional digoxin given - now increased to 0.25 mg daily. Following levels. (7) Essential thrombocythemia Comment: Leucocytosis and thrombocytosis marginally better after hydrea increased Heme f/u appreciated c/w Xarelto - platelets improving ASA given thrombocytosis (8) DVT prophylaxis Comment: - Xarelto Status and Disposition: Inpatient. Transfer to on 11/14
[2017-11-14] MEDS: Digoxin TAB* 0.25 MG PO SCH (17:07)
[2017-11-14] MEDS: Montelukast Sodium TAB* 10 MG PO SCH (21:48)
[2017-11-14] MEDS: Atorvastatin* 10 MG TAB PO SCH (21:48)
[2017-11-15] MEDS: Levothyroxine TAB* 112 MCG TAB PO SCH (06:11)
[2017-11-15] MEDS: Clotrimazole TROCHE* 10 MG TROCHE PO SCH ×5 (06:11→20:45)
[2017-11-15 07:30] LABS: Hematocrit 32 % (35-47); Mean Corpuscular HGB Conc 31 g/dl (31-36); Mean Corpuscular Hemoglobin 34 pg (27-31); Mean Corpuscular Volume 110 fL (80-97); Mean Platelet Volume 11.5 um3 (7.4-10.4); Platelet Count 742 10^3/ul (150-450); Red Blood Count 2.92 10^6/ul (4.00-5.40); Red Cell Distribution Width 24 % (10.5-15)
[2017-11-15 07:47] LABS: White Blood Count 23.3 10^3/ul (3.5-10.8)
[2017-11-15 07:53] LABS: ABS Basophils 0 10^3/ul (0-0.2); ABS Neutrophils 10.5 10^3/ul (1.5-7.7); ABS Neutrophils 5.4 10^3/ul (1.5-7.7); Monocytes % 2 % (0-7)
[2017-11-15] MEDS: Tiotropium CAP.INH* CAP.INH/18 MCG (USE ORDER SET !) INH SCH (08:34)
[2017-11-15] MEDS: Mometasone/Formoter 200/5 MDI INH SCH ×2 (08:35→19:37)
[2017-11-15] MEDS ORDERED: NS 0.9% 100 ML* 100 ML ONE (09:23)
[2017-11-15] MEDS: HydroxyUREA CAP* 500 MG CAP PO SCH ×2 (09:29→20:46)
[2017-11-15] MEDS: FLUoxetine CAP* 20 MG PO SCH (09:30)
[2017-11-15] MEDS: Cyanocobalamin TAB* 500 MCG PO SCH (09:31)
[2017-11-15] MEDS: Diltiazem CD CAP* 180 MG PO SCH (09:32)
[2017-11-15] MEDS: Atenolol TAB* 25 MG PO SCH (09:32)
[2017-11-15] MEDS: guaiFENesin ER TAB 600 MG PO SCH ×2 (09:33→20:45)
[2017-11-15] MEDS: Multivitamins/Minerals TAB PO SCH (09:33)
[2017-11-15] MEDS: Cholecalciferol TAB* 1000 UNITS PO SCH (09:34)
[2017-11-15] MEDS: Magnesium Oxide TAB* 400 MG PO SCH (09:34)
[2017-11-15] MEDS: Aspirin 81 mg CHEW TAB* 81 MG TAB.CHEW PO SCH (09:34)
[2017-11-15] MEDS: Lisinopril TAB* 10 MG PO SCH (09:35)
[2017-11-15] MEDS: Omeprazole CAP* 20 MG PO SCH (09:35)
[2017-11-15] MEDS: Cetirizine* 10 MG TAB PO SCH (09:36)
[2017-11-15] MEDS: Rivaroxaban TAB(*) 20 MG TAB PO SCH (09:36)
[2017-11-15] MEDS: predniSONE TAB* 10 MG PO SCH (09:37)
[2017-11-15] MEDS: Fluticasone NASAL SPRAY 50MCG* 16 gm SPRAY BTL BOTH NARES SCH (10:05)
[2017-11-15] MEDS: Nystatin TOP POWDER* 15 GM BTL TOPICAL SCH ×3 (10:06→20:45)
[2017-11-15] MEDS: Ferric Gluconate IV* 100 MG in NS 0.9% 100 ML* 100 ML IVPB SCH (11:03)
[2017-11-15] MEDS ORDERED: Ondansetron INJ* 2 MG/ML VIAL IV PRN (13:03)
--- NOTE | 2017-11-15 15:48 | PN ---
Subjective Date of Service: 11/15/17 Interval History: Slept well, feels the best she has in days Has not walked but wants to No SOB at rest +cough but improving Family History: Unchanged from Admission Social History: Unchanged from Admission Past Medical History: Unchanged from Admission Objective Active Medications: Acetaminophen (Tylenol Tab*) 650 mg PO Q6H PRN PRN Reason: FEVER/PAIN Last Admin: 11/10/17 09:46 Dose: 650 mg Albuterol/Ipratropium (Duoneb (Albuterol 2.5 Mg/Ipratropium 0.5 Mg)) 1 neb INH Q6H PRN PRN Reason: SOB/WHEEZING Last Admin: 11/14/17 19:51 Dose: 1 neb Aspirin (Aspirin 81 Mg Chew Tab*) 81 mg PO DAILY [facility] Last Admin: 11/15/17 09:34 Dose: 81 mg Atenolol (Tenormin Tab*) 25 mg PO DAILY [facility] Last Admin: 11/15/17 09:32 Dose: 25 mg Atorvastatin Calcium (Lipitor*) 10 mg PO BEDTIME [facility] Last Admin: 11/14/17 21:48 Dose: 10 mg Cetirizine HCl (Zyrtec*) 10 mg PO DAILY [facility]; Protocol Last Admin: 11/15/17 09:36 Dose: 10 mg Cholecalciferol (Vitamin D Tab*) 1,000 units PO DAILY [facility] Last Admin: 11/15/17 09:34 Dose: 1,000 units Clotrimazole (Mycelex Michael*) 10 mg PO FIVE TIMES DAILY [facility] Last Admin: 11/15/17 13:23 Dose: 10 mg Cyanocobalamin (Vitamin B12 Tab*) 1,000 mcg PO EVERY OTHER DAY [facility] Last Admin: 11/15/17 09:31 Dose: 1,000 mcg Device (Tiotropium Inhaler Device*) 1 each INH .USE w/ SPIRIVA CAPS [facility] Digoxin (Lanoxin Tab*) 0.25 mg PO 1700 [facility] Last Admin: 11/14/17 17:07 Dose: 0.25 mg Diltiazem HCl (Cardizem Cd Cap*) 360 mg PO DAILY [facility] Last Admin: 11/15/17 09:32 Dose: 360 mg Docusate Sodium (Colace Cap*) 100 mg PO BID PRN PRN Reason: CONSTIPATION Last Admin: 11/06/17 18:17 Dose: 100 mg Fluoxetine HCl (Prozac Cap*) 60 mg PO DAILY [facility] Last Admin: 11/15/17 09:30 Dose: 60 mg Fluticasone Propionate (Flonase Nasal [place] 50mcg*) 2 spray BOTH NARES DAILY [facility] Last Admin: 11/15/17 10:05 Dose: 2 spray Furosemide (Lasix Tab*) 20 mg PO MOWEFR [facility] Last Admin: 11/14/17 11:10 Dose: 20 mg Guaifenesin (Mucinex*) 1,200 mg PO BID [facility] Last Admin: 11/15/17 09:33 Dose: 1,200 mg Hydroxyurea (Hydrea Cap*) 1,500 mg PO BID [facility] Last Admin: 11/15/17 09:29 Dose: 1,500 mg Ferric Sodium Gluconate Complex 100 mg/ Sodium Chloride 108 mls @ 108 mls/hr IVPB DAILY [facility] Stop: 11/16/17 09:59 Last Admin: 11/15/17 11:03 Dose: 108 mls/hr Levothyroxine Sodium (Synthroid Tab*) 112 mcg PO 0600 [facility] Last Admin: 11/15/17 06:11 Dose: 112 mcg Lisinopril (Prinivil Tab*) 40 mg PO DAILY [facility] Last Admin: 11/15/17 09:35 Dose: 40 mg Loperamide HCl (Imodium Cap*) 2 mg PO TID PRN PRN Reason: DIARRHEA Lorazepam (Ativan Tab(*)) 0.5 mg PO Q4H PRN PRN Reason: ANXIETY Last Admin: 11/14/17 21:47 Dose: 0.5 mg Magnesium Oxide (Magox 400 Tab*) 400 mg PO DAILY [facility] Last Admin: 11/15/17 09:34 Dose: 400 mg Mometasone Furoate/Formoterol Fumar (Dulera 200/5 Mdi*) 2 puff INH BID [facility]; Protocol Last Admin: 11/15/17 08:35 Dose: 2 puff Montelukast Sodium (Singulair Tab*) 10 mg PO BEDTIME [facility] Last Admin: 11/14/17 21:48 Dose: 10 mg Morphine Sulfate (Morphine Vial*) 2 mg IV Q6H PRN PRN Reason: PAIN - MILD Last Admin: 11/12/17 15:25 Dose: 2 mg Morphine Sulfate (Morphine Vial*) 4 mg IV Q4HR PRN PRN Reason: dyspnea Last Admin: 11/10/17 21:26 Dose: 4 mg Multivitamins/Minerals (Theragran/Minerals Tab*) 1 tab PO DAILY [facility] Last Admin: 11/15/17 09:33 Dose: 1 tab Nystatin (Nystatin Top Powder*) 1 applic TOPICAL TID [facility] Last Admin: 11/15/17 14:59 Dose: Not Given Omeprazole (Prilosec Cap*) 20 mg PO 0730 [facility] Last Admin: 11/15/17 09:35 Dose: 20 mg Ondansetron HCl (Zofran Inj*) 4 mg IV Q6H PRN PRN Reason: NAUSEA Prednisone (Deltasone Tab*) 30 mg PO DAILY [facility] Last Admin: 11/15/17 09:37 Dose: 30 mg Rivaroxaban (Xarelto(*)) 20 mg PO DAILY [facility] Last Admin: 11/15/17 09:36 Dose: 20 mg Tiotropium [place] (Spiriva Cap.Inh*) 1 cap INH DAILY [facility] Last Admin: 11/15/17 08:34 Dose: 1 cap.inh Vital Signs - 8 hr 11/15/17 11/15/17 11/15/17 08:03 08:37 08:38 Temperature 97.2 F Pulse Rate 67 Respiratory 20 22 22 Rate Blood Pressure 132/59 (mmHg) O2 Sat by Pulse 99 Oximetry 11/15/17 11/15/17 11:37 11:38 Temperature 97.4 F 97.4 F Pulse Rate 63 63 Respiratory 20 20 Rate Blood Pressure 143/48 143/48 (mmHg) O2 Sat by Pulse 99 99 Oximetry Oxygen Devices in Use Now: Nasal Cannula, High Flow Nasal Cannula Appearance: NAD Eyes: No Scleral Icterus, PERRLA Ears/Nose/Mouth/Throat: NL Teeth, Lips, Gums, Clear Oropharnyx Neck: NL Appearance and Movements; NL JVP, Trachea Midline Respiratory: Symmetrical Chest Expansion and Respiratory Effort, - - rales b/; from bases up 2/3 to apex Cardiovascular: RRR Abdominal: NL Sounds; No Tenderness; No Distention, No Hepatosplenomegaly Lymphatic: No Cervical Adenopathy Extremities: No Edema Skin: No Rash or Ulcers Neurological: Alert and Oriented x 3 Result Diagrams: 11/15/17 07:04 11/14/17 04:16 Microbiology and Other Data: Microbiology 10/22/17 17:42 Aerobic Blood Culture - Preliminary Blood Venous No Growth Day 2 Anaerobic Blood Culture - Preliminary No Growth Day 2 10/22/17 17:42 Aerobic Blood Culture - Preliminary Blood Venous No Growth Day 2 Anaerobic Blood Culture - Preliminary No Growth Day 2 Assess/Plan/Problems-Billing ASSESSMENT: Ms Keita is a 77 yo F who has a h/o COPD and chronic hypoxic respiratory failure (on home oxygen), AF, HTN, hypothyroidism, HLD, anxiety disorder, and chronic leukocytosis and 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) who presented to the ER with c/o severe SOB and was admitted for a COPD exacerbation with stay c/b hospital acquired PNA and uncontrolled afib - Patient Problems (1) Respiratory failure Comment: -Acute on chronic (on O2 and 5mg prednisone at baseline) -NC on 5L -tapered to prednisone alone 11/15 - Sputum cx shows Pseudomonas susceptible to fluroquinolone (2) Pseudomonas pneumonia Comment: - Completed 10 days Levofloxacin 11/14 - Continue other respiratory therapies (3) COPD exacerbation Comment: - completed levaquin for HAP - prednisone 30mg qd - c/w nebs, incentive spirometry - c/w FiO2 taper as tolerated - OOB to chair, ambulate as tolerated (4) Anemia Comment: - stable - continuing hydrea (5) Anxiety Comment: - Appreciate Psych consult - fluoxetine increased from 40 to 60 mg - lorazaepam PRN added - can consider buspar - I have not added given the better control achieved by the interventions above (6) Atrial fibrillation Comment: - Rivaroxaban 20 mg - Diltiazem increased to 360 mg PO Daily; - Atenolol 20 mg PO daily. - c/w additional digoxin given - now increased to 0.25 mg daily. Following levels. (7) Essential thrombocythemia Comment: Leucocytosis and thrombocytosis improving after hydrea increased Heme f/u appreciated c/w Xarelto - platelets improving ASA given thrombocytosis (8) DVT prophylaxis Comment: - Xarelto Status and Disposition: Inpatient. Transfer to on 11/14
[2017-11-15] MEDS: Digoxin TAB* 0.25 MG PO SCH (17:26)
[2017-11-15] MEDS: Albuterol/Ipratropium NEB.SOL* Albuterol 2.5 MG/Ipratropium 0.5 MG 3 ML INH PRN (19:38)
[2017-11-15] MEDS: Montelukast Sodium TAB* 10 MG PO SCH (20:45)
[2017-11-15] MEDS: Atorvastatin* 10 MG TAB PO SCH (20:45)
[2017-11-15] MEDS: LORazepam TAB(*) 0.5 MG PO PRN (20:46)
[2017-11-16] MEDS: Clotrimazole TROCHE* 10 MG TROCHE PO SCH ×5 (05:56→21:56)
[2017-11-16] MEDS: Levothyroxine TAB* 112 MCG TAB PO SCH (05:56)
[2017-11-16 07:06] LABS: Hematocrit 30 % (35-47); Hemoglobin 9.5 g/dl (12.0-16.0); Mean Corpuscular HGB Conc 31 g/dl (31-36); Mean Corpuscular Hemoglobin 34 pg (27-31); Mean Corpuscular Volume 109 fL (80-97); Mean Platelet Volume 11.7 um3 (7.4-10.4); Platelet Count 660 10^3/ul (150-450); Red Blood Count 2.78 10^6/ul (4.00-5.40); Red Cell Distribution Width 24 % (10.5-15)
[2017-11-16] MEDS: Mometasone/Formoter 200/5 MDI INH SCH ×2 (07:14→20:53)
[2017-11-16] MEDS: Tiotropium CAP.INH* CAP.INH/18 MCG (USE ORDER SET !) INH SCH (07:15)
[2017-11-16 07:27] LABS: EGFR Non-African American 79.4 (>60)
[2017-11-16 07:40] LABS: White Blood Count 12.3 10^3/ul (3.5-10.8)
[2017-11-16 07:46] LABS: ABS Basophils 0 10^3/ul (0-0.2); ABS Neutrophils 4.9 10^3/ul (1.5-7.7); Monocytes % 0 % (0-7)
[2017-11-16] MEDS: Aspirin 81 mg CHEW TAB* 81 MG TAB.CHEW PO SCH (08:01)
[2017-11-16] MEDS: Cholecalciferol TAB* 1000 UNITS PO SCH (08:01)
[2017-11-16] MEDS: guaiFENesin ER TAB 600 MG PO SCH ×2 (08:01→21:57)
[2017-11-16] MEDS: Rivaroxaban TAB(*) 20 MG TAB PO SCH (08:01)
[2017-11-16] MEDS: Diltiazem CD CAP* 180 MG PO SCH (08:01)
[2017-11-16] MEDS: Atenolol TAB* 25 MG PO SCH (08:01)
[2017-11-16] MEDS: Magnesium Oxide TAB* 400 MG PO SCH (08:02)
[2017-11-16] MEDS: Multivitamins/Minerals TAB PO SCH (08:02)
[2017-11-16] MEDS: predniSONE TAB* 10 MG PO SCH (08:02)
[2017-11-16] MEDS: Omeprazole CAP* 20 MG PO SCH (08:02)
[2017-11-16] MEDS: FLUoxetine CAP* 20 MG PO SCH (08:02)
[2017-11-16] MEDS: Cetirizine* 10 MG TAB PO SCH (08:02)
[2017-11-16] MEDS: Lisinopril TAB* 10 MG PO SCH (08:02)
[2017-11-16] MEDS: HydroxyUREA CAP* 500 MG CAP PO SCH ×2 (08:02→21:59)
[2017-11-16] MEDS: Fluticasone NASAL SPRAY 50MCG* 16 gm SPRAY BTL BOTH NARES SCH (08:03)
[2017-11-16] MEDS: Ferric Gluconate IV* 100 MG in NS 0.9% 100 ML* 100 ML IVPB SCH (09:27)
[2017-11-16] MEDS: Nystatin TOP POWDER* 15 GM BTL TOPICAL SCH ×3 (09:32→22:00)
--- NOTE | 2017-11-16 11:00 | PN ---
Subjective Date of Service: 11/16/17 Interval History: +cough Breathing feels better, thinking feels more clear Did not walk yesterday although she wanted to Family History: Unchanged from Admission Social History: Unchanged from Admission Past Medical History: Unchanged from Admission Objective Active Medications: Acetaminophen (Tylenol Tab*) 650 mg PO Q6H PRN PRN Reason: FEVER/PAIN Last Admin: 11/10/17 09:46 Dose: 650 mg Albuterol/Ipratropium (Duoneb (Albuterol 2.5 Mg/Ipratropium 0.5 Mg)) 1 neb INH Q6H PRN PRN Reason: SOB/WHEEZING Last Admin: 11/15/17 19:38 Dose: 1 neb Aspirin (Aspirin 81 Mg Chew Tab*) 81 mg PO DAILY [facility] Last Admin: 11/16/17 08:01 Dose: 81 mg Atenolol (Tenormin Tab*) 25 mg PO DAILY [facility] Last Admin: 11/16/17 08:01 Dose: 25 mg Atorvastatin Calcium (Lipitor*) 10 mg PO BEDTIME [facility] Last Admin: 11/15/17 20:45 Dose: 10 mg Cetirizine HCl (Zyrtec*) 10 mg PO DAILY [facility]; Protocol Last Admin: 11/16/17 08:02 Dose: 10 mg Cholecalciferol (Vitamin D Tab*) 1,000 units PO DAILY [facility] Last Admin: 11/16/17 08:01 Dose: 1,000 units Clotrimazole (Mycelex Michael*) 10 mg PO FIVE TIMES DAILY [facility] Last Admin: 11/16/17 09:27 Dose: 10 mg Cyanocobalamin (Vitamin B12 Tab*) 1,000 mcg PO EVERY OTHER DAY [facility] Last Admin: 11/15/17 09:31 Dose: 1,000 mcg Device (Tiotropium Inhaler Device*) 1 each INH .USE w/ SPIRIVA CAPS [facility] Digoxin (Lanoxin Tab*) 0.25 mg PO 1700 [facility] Last Admin: 11/15/17 17:26 Dose: 0.25 mg Diltiazem HCl (Cardizem Cd Cap*) 360 mg PO DAILY [facility] Last Admin: 11/16/17 08:01 Dose: 360 mg Docusate Sodium (Colace Cap*) 100 mg PO BID PRN PRN Reason: CONSTIPATION Last Admin: 11/06/17 18:17 Dose: 100 mg Fluoxetine HCl (Prozac Cap*) 60 mg PO DAILY [facility] Last Admin: 11/16/17 08:02 Dose: 60 mg Fluticasone Propionate (Flonase Nasal [place] 50mcg*) 2 spray BOTH NARES DAILY [facility] Last Admin: 11/16/17 08:03 Dose: 2 spray Furosemide (Lasix Tab*) 20 mg PO MOWEFR [facility] Last Admin: 11/14/17 11:10 Dose: 20 mg Guaifenesin (Mucinex*) 1,200 mg PO BID [facility] Last Admin: 11/16/17 08:01 Dose: 1,200 mg Hydroxyurea (Hydrea Cap*) 1,500 mg PO BID [facility] Last Admin: 11/16/17 08:02 Dose: 1,500 mg Levothyroxine Sodium (Synthroid Tab*) 112 mcg PO 0600 [facility] Last Admin: 11/16/17 05:56 Dose: 112 mcg Lisinopril (Prinivil Tab*) 40 mg PO DAILY [facility] Last Admin: 11/16/17 08:02 Dose: 40 mg Loperamide HCl (Imodium Cap*) 2 mg PO TID PRN PRN Reason: DIARRHEA Lorazepam (Ativan Tab(*)) 0.5 mg PO Q4H PRN PRN Reason: ANXIETY Last Admin: 11/15/17 20:46 Dose: 0.5 mg Magnesium Oxide (Magox 400 Tab*) 400 mg PO DAILY [facility] Last Admin: 11/16/17 08:02 Dose: 400 mg Mometasone Furoate/Formoterol Fumar (Dulera 200/5 Mdi*) 2 puff INH BID [facility]; Protocol Last Admin: 11/16/17 07:14 Dose: 2 puff Montelukast Sodium (Singulair Tab*) 10 mg PO BEDTIME [facility] Last Admin: 11/15/17 20:45 Dose: 10 mg Morphine Sulfate (Morphine Vial*) 2 mg IV Q6H PRN PRN Reason: PAIN - MILD Last Admin: 11/12/17 15:25 Dose: 2 mg Morphine Sulfate (Morphine Vial*) 4 mg IV Q4HR PRN PRN Reason: dyspnea Last Admin: 11/10/17 21:26 Dose: 4 mg Multivitamins/Minerals (Theragran/Minerals Tab*) 1 tab PO DAILY [facility] Last Admin: 11/16/17 08:02 Dose: 1 tab Nystatin (Nystatin Top Powder*) 1 applic TOPICAL TID [facility] Last Admin: 11/16/17 09:32 Dose: 1 applic Omeprazole (Prilosec Cap*) 20 mg PO 0730 [facility] Last Admin: 11/16/17 08:02 Dose: 20 mg Ondansetron HCl (Zofran Inj*) 4 mg IV Q6H PRN PRN Reason: NAUSEA Prednisone (Deltasone Tab*) 30 mg PO DAILY [facility] Last Admin: 11/16/17 08:02 Dose: 30 mg Rivaroxaban (Xarelto(*)) 20 mg PO DAILY [facility] Last Admin: 11/16/17 08:01 Dose: 20 mg Tiotropium [place] (Spiriva Cap.Inh*) 1 cap INH DAILY [facility] Last Admin: 11/16/17 07:15 Dose: 1 cap.inh Vital Signs - 8 hr 11/16/17 11/16/17 11/16/17 03:56 07:46 09:44 Temperature 98.9 F 97.6 F Pulse Rate 65 71 67 Respiratory 14 16 20 Rate Blood Pressure 135/48 127/48 (mmHg) O2 Sat by Pulse 100 98 96 Oximetry 11/16/17 10:10 Temperature Pulse Rate Respiratory 16 Rate Blood Pressure (mmHg) O2 Sat by Pulse Oximetry Oxygen Devices in Use Now: Nasal Cannula - 5L, High Flow Nasal Cannula Appearance: sitting in chair, up beat, smiling, NAD Eyes: No Scleral Icterus, PERRLA Ears/Nose/Mouth/Throat: Clear Oropharnyx, Mucous Membranes Moist Neck: NL Appearance and Movements; NL JVP, Trachea Midline Respiratory: Symmetrical Chest Expansion and Respiratory Effort, - - trace scattered rhonchi improved since yesterday Cardiovascular: RRR Abdominal: NL Sounds; No Tenderness; No Distention, No Hepatosplenomegaly Lymphatic: No Cervical Adenopathy Extremities: No Edema Skin: No Rash or Ulcers Neurological: Alert and Oriented x 3 Result Diagrams: 11/16/17 06:12 11/16/17 06:12 Microbiology and Other Data: Microbiology 10/22/17 17:42 Aerobic Blood Culture - Preliminary Blood Venous No Growth Day 2 Anaerobic Blood Culture - Preliminary No Growth Day 2 10/22/17 17:42 Aerobic Blood Culture - Preliminary Blood Venous No Growth Day 2 Anaerobic Blood Culture - Preliminary No Growth Day 2 Assess/Plan/Problems-Billing ASSESSMENT: Ms Keita is a 77 yo F who has a h/o COPD and chronic hypoxic respiratory failure (on home oxygen), AF, HTN, hypothyroidism, HLD, anxiety disorder, and chronic leukocytosis and 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 May need additional doses in days to come (2) Pseudomonas pneumonia Comment: - Completed 10 days Levofloxacin 11/14 - Continue other respiratory therapies (3) COPD exacerbation Comment: - completed levaquin for HAP - prednisone 30mg qd - c/w nebs, incentive spirometry - c/w FiO2 taper as tolerated - OOB to chair, ambulate as tolerated (4) Anemia Comment: - stable - continuing hydrea (5) Anxiety Comment: - Appreciate Psych consult - fluoxetine increased from 40 to 60 mg - lorazaepam PRN added - can consider buspar - I have not added given the better control achieved by the interventions above (6) Atrial fibrillation Comment: - Rivaroxaban 20 mg - Diltiazem increased to 360 mg PO Daily; - Atenolol 20 mg PO daily. - c/w additional digoxin given - now increased to 0.25 mg daily. (7) Essential thrombocythemia Comment: Leucocytosis and thrombocytosis improving after hydrea increased Heme f/u appreciated c/w Xarelto - ASA given thrombocytosis (8) DVT prophylaxis Comment: - Xarelto Status and Disposition: Inpatient. For continued hypoxic respiratory failure. Lung exam improving.
[2017-11-16] MEDS: Furosemide TAB* 20 MG PO SCH (11:27)
[2017-11-16] MEDS: Digoxin TAB* 0.25 MG PO SCH (16:46)
[2017-11-16] MEDS: Albuterol/Ipratropium NEB.SOL* Albuterol 2.5 MG/Ipratropium 0.5 MG 3 ML INH PRN (20:53)
[2017-11-16] MEDS: LORazepam TAB(*) 0.5 MG PO PRN (21:57)
[2017-11-16] MEDS: Atorvastatin* 10 MG TAB PO SCH (21:57)
[2017-11-16] MEDS: Montelukast Sodium TAB* 10 MG PO SCH (21:57)
[2017-11-17] MEDS: Clotrimazole TROCHE* 10 MG TROCHE PO SCH ×5 (06:10→21:58)
[2017-11-17] MEDS: Levothyroxine TAB* 112 MCG TAB PO SCH (06:10)
[2017-11-17] MEDS: Fluticasone NASAL SPRAY 50MCG* 16 gm SPRAY BTL BOTH NARES SCH (08:00)
[2017-11-17] MEDS: Lisinopril TAB* 10 MG PO SCH (08:01)
[2017-11-17] MEDS: Diltiazem CD CAP* 180 MG PO SCH (08:01)
[2017-11-17] MEDS: FLUoxetine CAP* 20 MG PO SCH (08:01)
[2017-11-17] MEDS: Cyanocobalamin TAB* 500 MCG PO SCH (08:02)
[2017-11-17] MEDS: Atenolol TAB* 25 MG PO SCH (08:03)
[2017-11-17] MEDS: predniSONE TAB* 10 MG PO SCH (08:03)
[2017-11-17] MEDS: guaiFENesin ER TAB 600 MG PO SCH ×2 (08:03→21:58)
[2017-11-17] MEDS: Multivitamins/Minerals TAB PO SCH (08:04)
[2017-11-17] MEDS: Magnesium Oxide TAB* 400 MG PO SCH (08:04)
[2017-11-17] MEDS: Rivaroxaban TAB(*) 20 MG TAB PO SCH (08:04)
[2017-11-17] MEDS: Cetirizine* 10 MG TAB PO SCH (08:04)
[2017-11-17] MEDS: Aspirin 81 mg CHEW TAB* 81 MG TAB.CHEW PO SCH (08:04)
[2017-11-17] MEDS: Cholecalciferol TAB* 1000 UNITS PO SCH (08:04)
[2017-11-17] MEDS: Omeprazole CAP* 20 MG PO SCH (08:04)
[2017-11-17] MEDS: HydroxyUREA CAP* 500 MG CAP PO SCH ×2 (08:05→21:58)
[2017-11-17] MEDS: Nystatin TOP POWDER* 15 GM BTL TOPICAL SCH ×3 (08:06→21:58)
[2017-11-17] MEDS: Albuterol/Ipratropium NEB.SOL* Albuterol 2.5 MG/Ipratropium 0.5 MG 3 ML INH PRN ×2 (09:07→20:14)
[2017-11-17] MEDS: Tiotropium CAP.INH* CAP.INH/18 MCG (USE ORDER SET !) INH SCH (09:07)
[2017-11-17] MEDS: Mometasone/Formoter 200/5 MDI INH SCH ×2 (09:08→20:09)
[2017-11-17] MEDS ORDERED: Furosemide IV* 10 MG/ML 2 ML VIAL (20 MG) IV SLOW PU ONE (11:51)
--- NOTE | 2017-11-17 14:00 | PN ---
Subjective Date of Service: 11/17/17 Interval History: Episode of SOB this AM on waking Breathing improved with respiratory treatment Currently no SOB at rest but SOB with exertion +productive cough. Flutter valve helping. Still generally feels as though she is improving O2 down to 3L from 5L for last days Family History: Unchanged from Admission Social History: Unchanged from Admission Past Medical History: Unchanged from Admission Objective Active Medications: Acetaminophen (Tylenol Tab*) 650 mg PO Q6H PRN PRN Reason: FEVER/PAIN Last Admin: 11/10/17 09:46 Dose: 650 mg Albuterol/Ipratropium (Duoneb (Albuterol 2.5 Mg/Ipratropium 0.5 Mg)) 1 neb INH Q6H PRN PRN Reason: SOB/WHEEZING Last Admin: 11/17/17 09:07 Dose: 1 neb Aspirin (Aspirin 81 Mg Chew Tab*) 81 mg PO DAILY [facility] Last Admin: 11/17/17 08:04 Dose: 81 mg Atenolol (Tenormin Tab*) 25 mg PO DAILY [facility] Last Admin: 11/17/17 08:03 Dose: 25 mg Atorvastatin Calcium (Lipitor*) 10 mg PO BEDTIME [facility] Last Admin: 11/16/17 21:57 Dose: 10 mg Cetirizine HCl (Zyrtec*) 10 mg PO DAILY [facility]; Protocol Last Admin: 11/17/17 08:04 Dose: 10 mg Cholecalciferol (Vitamin D Tab*) 1,000 units PO DAILY [facility] Last Admin: 11/17/17 08:04 Dose: 1,000 units Clotrimazole (Mycelex Michael*) 10 mg PO FIVE TIMES DAILY [facility] Last Admin: 11/17/17 12:29 Dose: 10 mg Cyanocobalamin (Vitamin B12 Tab*) 1,000 mcg PO EVERY OTHER DAY [facility] Last Admin: 11/17/17 08:02 Dose: 1,000 mcg Device (Tiotropium Inhaler Device*) 1 each INH .USE w/ SPIRIVA CAPS [facility] Digoxin (Lanoxin Tab*) 0.25 mg PO 1700 [facility] Last Admin: 11/16/17 16:46 Dose: 0.25 mg Diltiazem HCl (Cardizem Cd Cap*) 360 mg PO DAILY [facility] Last Admin: 11/17/17 08:01 Dose: 360 mg Docusate Sodium (Colace Cap*) 100 mg PO BID PRN PRN Reason: CONSTIPATION Last Admin: 11/06/17 18:17 Dose: 100 mg Fluoxetine HCl (Prozac Cap*) 60 mg PO DAILY [facility] Last Admin: 11/17/17 08:01 Dose: 60 mg Fluticasone Propionate (Flonase Nasal [place] 50mcg*) 2 spray BOTH NARES DAILY [facility] Last Admin: 11/17/17 08:00 Dose: 2 spray Furosemide (Lasix Tab*) 20 mg PO MOWEFR [facility] Last Admin: 11/16/17 11:27 Dose: 20 mg Guaifenesin (Mucinex*) 1,200 mg PO BID [facility] Last Admin: 11/17/17 08:03 Dose: 1,200 mg Hydroxyurea (Hydrea Cap*) 1,000 mg PO BID [facility] Last Admin: 11/17/17 08:05 Dose: 1,000 mg Levothyroxine Sodium (Synthroid Tab*) 112 mcg PO 0600 [facility] Last Admin: 11/17/17 06:10 Dose: 112 mcg Lisinopril (Prinivil Tab*) 40 mg PO DAILY [facility] Last Admin: 11/17/17 08:01 Dose: 40 mg Loperamide HCl (Imodium Cap*) 2 mg PO TID PRN PRN Reason: DIARRHEA Magnesium Oxide (Magox 400 Tab*) 400 mg PO DAILY [facility] Last Admin: 11/17/17 08:04 Dose: 400 mg Mometasone Furoate/Formoterol Fumar (Dulera 200/5 Mdi*) 2 puff INH BID [facility]; Protocol Last Admin: 11/17/17 09:08 Dose: 2 puff Montelukast Sodium (Singulair Tab*) 10 mg PO BEDTIME [facility] Last Admin: 11/16/17 21:57 Dose: 10 mg Morphine Sulfate (Morphine Vial*) 2 mg IV Q6H PRN PRN Reason: PAIN - MILD Last Admin: 11/12/17 15:25 Dose: 2 mg Multivitamins/Minerals (Theragran/Minerals Tab*) 1 tab PO DAILY [facility] Last Admin: 11/17/17 08:04 Dose: 1 tab Nystatin (Nystatin Top Powder*) 1 applic TOPICAL TID [facility] Last Admin: 11/17/17 13:37 Dose: 1 applic Omeprazole (Prilosec Cap*) 20 mg PO 0730 [facility] Last Admin: 11/17/17 08:04 Dose: 20 mg Ondansetron HCl (Zofran Inj*) 4 mg IV Q6H PRN PRN Reason: NAUSEA Prednisone (Deltasone Tab*) 30 mg PO DAILY [facility] Last Admin: 11/17/17 08:03 Dose: 30 mg Rivaroxaban (Xarelto(*)) 20 mg PO DAILY [facility] Last Admin: 11/17/17 08:04 Dose: 20 mg Tiotropium [place] (Spiriva Cap.Inh*) 1 cap INH DAILY [facility] Last Admin: 11/17/17 09:07 Dose: 1 cap.inh Vital Signs - 8 hr 11/17/17 11/17/17 11/17/17 07:32 07:51 08:00 Temperature 98.9 F Pulse Rate 66 Respiratory 20 Rate Blood Pressure 136/45 (mmHg) O2 Sat by Pulse 86 97 95 Oximetry 11/17/17 11/17/17 11/17/17 08:51 09:08 11:44 Temperature 98.6 F Pulse Rate 78 69 Respiratory 18 16 24 Rate Blood Pressure 123/58 (mmHg) O2 Sat by Pulse 98 98 Oximetry Oxygen Devices in Use Now: Nasal Cannula - 3L Appearance: sitting in chair, NAD Eyes: No Scleral Icterus, PERRLA Ears/Nose/Mouth/Throat: NL Teeth, Lips, Gums, Clear Oropharnyx Neck: NL Appearance and Movements; NL JVP, Trachea Midline Respiratory: Symmetrical Chest Expansion and Respiratory Effort, - - rales base up 2/3, no rhonchi Cardiovascular: - - IRIR Abdominal: NL Sounds; No Tenderness; No Distention, No Hepatosplenomegaly Lymphatic: No Cervical Adenopathy Extremities: No Edema Skin: No Rash or Ulcers Neurological: Alert and Oriented x 3 Result Diagrams: 11/16/17 06:12 11/16/17 06:12 Microbiology and Other Data: Microbiology 10/22/17 17:42 Aerobic Blood Culture - Preliminary Blood Venous No Growth Day 2 Anaerobic Blood Culture - Preliminary No Growth Day 2 10/22/17 17:42 Aerobic Blood Culture - Preliminary Blood Venous No Growth Day 2 Anaerobic Blood Culture - Preliminary No Growth Day 2 Assess/Plan/Problems-Billing ASSESSMENT: Ms Keita is a 77 yo F who has a h/o COPD w/ chronic hypoxic respiratory failure (on home oxygen), AF, HTN, hypothyroidism, HLD, anxiety disorder, and chronic leukocytosis and 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) who presented to the ER with c/o severe SOB and was admitted for a COPD exacerbation with stay c/b hospital acquired PNA and uncontrolled afib - Patient Problems (1) Respiratory failure Comment: - Acute on chronic (on O2 and 5mg prednisone at baseline) - NC on 3L and weaning - tapered to prednisone alone 11/15 - Sputum cx shows Pseudomonas susceptible to fluroquinolone s/p course of levaquin - flutter valve and ambulate - Lasix IV 20mg 11/17 - Patient had 2370 cc intake yesterday and was net positive 1170 likely contributing to SOB this AM and new rales (2) Pseudomonas pneumonia Comment: - Completed 10 days Levofloxacin 11/14 - Continue other respiratory therapies (3) COPD exacerbation Comment: - completed levaquin for HAP - prednisone 30mg qd, taper on discharge - c/w nebs, incentive spirometry - c/w FiO2 taper as tolerated - OOB to chair, ambulate as tolerated (4) Anemia Comment: - stable - continuing hydrea - labs tomorrow (5) Anxiety Comment: - Appreciate Psych consult - fluoxetine increased from 40 to 60 mg - lorazaepam PRN added - can consider buspar - I have not added given the better control achieved by the interventions above (6) Atrial fibrillation Comment: - Rivaroxaban 20 mg - Diltiazem increased to 360 mg PO Daily; - Atenolol 20 mg PO daily. - c/w additional digoxin given - now increased to 0.25 mg daily. - digoxin level tomorrow (7) Essential thrombocythemia Comment: Leucocytosis and thrombocytosis improving after hydrea increased Heme f/u appreciated c/w Xarelto ASA given thrombocytosis (8) DVT prophylaxis Comment: - Xarelto Status and Disposition: Inpatient. For continued hypoxic respiratory failure.
[2017-11-17] MEDS: Digoxin TAB* 0.25 MG PO SCH (16:23)
[2017-11-17] MEDS: Atorvastatin* 10 MG TAB PO SCH (21:58)
[2017-11-17] MEDS: Montelukast Sodium TAB* 10 MG PO SCH (21:58)
[2017-11-18 05:59] LABS: Hematocrit 28 % (35-47); Mean Corpuscular HGB Conc 32 g/dl (31-36); Mean Corpuscular Hemoglobin 35 pg (27-31); Mean Corpuscular Volume 109 fL (80-97); Mean Platelet Volume 11.6 um3 (7.4-10.4); Platelet Count 577 10^3/ul (150-450); Red Blood Count 2.55 10^6/ul (4.00-5.40); Red Cell Distribution Width 24 % (10.5-15); White Blood Count 20.1 10^3/ul (3.5-10.8)
[2017-11-18 06:00] LABS: ABS Nucleated RBC 0 10^3/ul
[2017-11-18] MEDS: Clotrimazole TROCHE* 10 MG TROCHE PO SCH ×5 (06:04→22:16)
[2017-11-18] MEDS: Levothyroxine TAB* 112 MCG TAB PO SCH (06:04)
[2017-11-18 06:33] LABS: ABS Basophils 0 10^3/ul (0-0.2); ABS Neutrophils 5.8 10^3/ul (1.5-7.7); Monocytes % 0 % (0-7)
[2017-11-18] MEDS: Lisinopril TAB* 10 MG PO SCH (07:44)
[2017-11-18] MEDS: guaiFENesin ER TAB 600 MG PO SCH ×2 (07:44→19:12)
[2017-11-18] MEDS: Aspirin 81 mg CHEW TAB* 81 MG TAB.CHEW PO SCH (07:44)
[2017-11-18] MEDS: Omeprazole CAP* 20 MG PO SCH (07:44)
[2017-11-18] MEDS: Magnesium Oxide TAB* 400 MG PO SCH (07:44)
[2017-11-18] MEDS: Multivitamins/Minerals TAB PO SCH (07:45)
[2017-11-18] MEDS: Rivaroxaban TAB(*) 20 MG TAB PO SCH (07:45)
[2017-11-18] MEDS: Nystatin TOP POWDER* 15 GM BTL TOPICAL SCH (07:45)
[2017-11-18] MEDS: Cholecalciferol TAB* 1000 UNITS PO SCH (07:45)
[2017-11-18] MEDS: predniSONE TAB* 10 MG PO SCH (07:45)
[2017-11-18] MEDS: Atenolol TAB* 25 MG PO SCH (07:45)
[2017-11-18] MEDS: Diltiazem CD CAP* 180 MG PO SCH (07:45)
[2017-11-18] MEDS: Cetirizine* 10 MG TAB PO SCH (07:45)
[2017-11-18] MEDS: FLUoxetine CAP* 20 MG PO SCH (07:45)
[2017-11-18] MEDS: HydroxyUREA CAP* 500 MG CAP PO SCH ×2 (07:46→19:13)
[2017-11-18] MEDS: Fluticasone NASAL SPRAY 50MCG* 16 gm SPRAY BTL BOTH NARES SCH (07:46)
[2017-11-18] MEDS ORDERED: Lisinopril TAB* 10 MG ONE (08:05)
[2017-11-18] MEDS: Albuterol/Ipratropium NEB.SOL* Albuterol 2.5 MG/Ipratropium 0.5 MG 3 ML INH PRN (08:16)
[2017-11-18] MEDS: Mometasone/Formoter 200/5 MDI INH SCH ×2 (08:18→20:32)
[2017-11-18] MEDS: Tiotropium CAP.INH* CAP.INH/18 MCG (USE ORDER SET !) INH SCH (08:18)
--- NOTE | 2017-11-18 17:12 | PN ---
Subjective Date of Service: 11/18/17 Interval History: Pt feeling well. Feels 20 IV lasix yesterday releived her ankle edema. [facility] reordered (many ICUs tranfers) and worked with for first time since her prolonged hospitalization. Orthopenic at baseline. Denies chest pain, abdominal pain, N/V, diarrhea, constipation, F/C. Cough productive of yellow sputum (much better than previously while in ICU -> thick green). Digoxin level up to 1.7 Son visits each AM at her Sr Housing. PLT to 577. WBC up to 20.1. Tmax 99.3. Family History: Unchanged from Admission Social History: Unchanged from Admission Past Medical History: Unchanged from Admission Objective Active Medications: Acetaminophen (Tylenol Tab*) 650 mg PO Q6H PRN PRN Reason: FEVER/PAIN Last Admin: 11/10/17 09:46 Dose: 650 mg Albuterol/Ipratropium (Duoneb (Albuterol 2.5 Mg/Ipratropium 0.5 Mg)) 1 neb INH Q6H PRN PRN Reason: SOB/WHEEZING Last Admin: 11/18/17 08:16 Dose: 1 neb Atenolol (Tenormin Tab*) 25 mg PO DAILY [facility] Last Admin: 11/18/17 07:45 Dose: 25 mg Atorvastatin Calcium (Lipitor*) 10 mg PO BEDTIME [facility] Last Admin: 11/17/17 21:58 Dose: 10 mg Cetirizine HCl (Zyrtec*) 10 mg PO DAILY [facility]; Protocol Last Admin: 11/18/17 07:45 Dose: 10 mg Cholecalciferol (Vitamin D Tab*) 1,000 units PO DAILY [facility] Last Admin: 11/18/17 07:45 Dose: 1,000 units Clotrimazole (Mycelex Michael*) 10 mg PO FIVE TIMES DAILY [facility] Last Admin: 11/18/17 17:02 Dose: 10 mg Cyanocobalamin (Vitamin B12 Tab*) 1,000 mcg PO EVERY OTHER DAY [facility] Last Admin: 11/17/17 08:02 Dose: 1,000 mcg Device (Tiotropium Inhaler Device*) 1 each INH .USE w/ SPIRIVA CAPS [facility] Diltiazem HCl (Cardizem Cd Cap*) 360 mg PO DAILY [facility] Last Admin: 11/18/17 07:45 Dose: 360 mg Docusate Sodium (Colace Cap*) 100 mg PO BID PRN PRN Reason: CONSTIPATION Last Admin: 11/06/17 18:17 Dose: 100 mg Fluoxetine HCl (Prozac Cap*) 60 mg PO DAILY [facility] Last Admin: 11/18/17 07:45 Dose: 60 mg Fluticasone Propionate (Flonase Nasal [place] 50mcg*) 2 spray BOTH NARES DAILY [facility] Last Admin: 11/18/17 07:46 Dose: 2 spray Furosemide (Lasix Tab*) 20 mg PO MOWEFR [facility] Last Admin: 11/16/17 11:27 Dose: 20 mg Guaifenesin (Mucinex*) 1,200 mg PO BID [facility] Last Admin: 11/18/17 07:44 Dose: 1,200 mg Hydroxyurea (Hydrea Cap*) 1,000 mg PO BID [facility] Last Admin: 11/18/17 07:46 Dose: 1,000 mg Levothyroxine Sodium (Synthroid Tab*) 112 mcg PO 0600 [facility] Last Admin: 11/18/17 06:04 Dose: 112 mcg Lisinopril (Prinivil Tab*) 40 mg PO DAILY [facility] Last Admin: 11/18/17 07:44 Dose: 40 mg Loperamide HCl (Imodium Cap*) 2 mg PO TID PRN PRN Reason: DIARRHEA Magnesium Oxide (Magox 400 Tab*) 400 mg PO DAILY [facility] Last Admin: 11/18/17 07:44 Dose: 400 mg Mometasone Furoate/Formoterol Fumar (Dulera 200/5 Mdi*) 2 puff INH BID [facility]; Protocol Last Admin: 11/18/17 08:18 Dose: 2 puff Montelukast Sodium (Singulair Tab*) 10 mg PO BEDTIME [facility] Last Admin: 11/17/17 21:58 Dose: 10 mg Multivitamins/Minerals (Theragran/Minerals Tab*) 1 tab PO DAILY [facility] Last Admin: 11/18/17 07:45 Dose: 1 tab Omeprazole (Prilosec Cap*) 20 mg PO 0730 [facility] Last Admin: 11/18/17 07:44 Dose: 20 mg Ondansetron HCl (Zofran Inj*) 4 mg IV Q6H PRN PRN Reason: NAUSEA Prednisone (Deltasone Tab*) 30 mg PO DAILY [facility] Last Admin: 11/18/17 07:45 Dose: 30 mg Rivaroxaban (Xarelto(*)) 20 mg PO DAILY [facility] Last Admin: 11/18/17 07:45 Dose: 20 mg Tiotropium [place] (Spiriva Cap.Inh*) 1 cap INH DAILY [facility] Last Admin: 11/18/17 08:18 Dose: 1 cap.inh Vital Signs - 8 hr 11/18/17 11/18/17 11/18/17 09:14 09:38 11:53 Temperature 97.4 F Pulse Rate 68 Respiratory 20 22 Rate Blood Pressure 130/53 (mmHg) O2 Sat by Pulse 92 96 Oximetry Oxygen Devices in Use Now: Nasal Cannula Appearance: NAD, sitting in chair. in good spirits. Eyes: No Scleral Icterus, PERRLA Ears/Nose/Mouth/Throat: NL Teeth, Lips, Gums Neck: NL Appearance and Movements; NL JVP, Trachea Midline Respiratory: Symmetrical Chest Expansion and Respiratory Effort, - - diffusely diminshed b/l. No wheezing or rhonchi. Cardiovascular: NL Sounds; No Murmurs; No JVD, RRR Abdominal: NL Sounds; No Tenderness; No Distention, No Hepatosplenomegaly Extremities: No Edema Skin: No Rash or Ulcers Neurological: Alert and Oriented x 3, NL Sensation, NL Muscle Strength and Tone Nutrition: Taking PO's Result Diagrams: 11/18/17 05:44 11/16/17 06:12 Additional Lab and Data: Laboratory Results - last 24 hr 11/18/17 11/18/17 05:44 05:44 WBC 20.1 H RBC 2.55 L Hgb 9.0 L Hct 28 L MCV 109 H MCH 35 H MCHC 32 RDW 24 H Plt Count 577 H D MPV 11.6 H Neut % (Auto) Not Reportable Lymph % (Auto) Not Reportable [place] % (Auto) Not Reportable Eos % (Auto) Not Reportable Baso % (Auto) Not Reportable Absolute Neuts (auto) 5.8 Absolute Lymphs (auto) Not Reportable Absolute Monos (auto) Not Reportable Absolute Eos (auto) Not Reportable Absolute Basos (auto) Not Reportable Absolute Nucleated RBC 0 Neutrophils % 98 H Lymphocytes % 2 L Monocytes % 0 Eosinophils % 0 Basophils % 0 Nucleated RBC % Not Reportable Abs Neuts (Manual) 19.7 H Abs Lymphs (Manual) 0.4 L Abs Monocytes (Manual) 0 Absolute Eos (Manual) 0 Abs Basophils (Manual) 0 Giant Platelets Present Normal RBC Morphology Not Reportable Polychromasia 1+ Anisocytosis 2+ Digoxin 1.7 Microbiology and Other Data: Microbiology 11/06/17 10:36 Blood Venous Aerobic Blood Culture - Final No Growth Day 5 11/06/17 10:36 Blood Venous Anaerobic Blood Culture - Final No Growth Day 5 11/06/17 10:00 Sputum Gram Stain - Final 11/06/17 10:00 Sputum Sputum Culture - Final YEAST Pseudomonas Aeruginosa 10/28/17 10:40 Stool Stool Occult Blood (LISA) - Final 10/22/17 17:42 Blood Venous Aerobic Blood Culture - Final No Growth Day 5 10/22/17 17:42 Blood Venous Anaerobic Blood Culture - Final No Growth Day 5 10/22/17 17:42 Blood Venous Aerobic Blood Culture - Final No Growth Day 5 10/22/17 17:42 Blood Venous Anaerobic Blood Culture - Final No Growth Day 5 Assess/Plan/Problems-Billing ASSESSMENT: Ms Keita is a 77 yo F who has a h/o COPD w/ chronic hypoxic respiratory failure (on home oxygen), AF, HTN, hypothyroidism, HLD, anxiety disorder, and chronic leukocytosis and 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) who presented to the ER with c/o severe SOB and was admitted for a COPD exacerbation with stay c/b hospital acquired PNA and uncontrolled afib - Patient Problems (1) COPD exacerbation Current Visit: Yes Status: Acute Priority: High Code(s): J44.1 - CHRONIC OBSTRUCTIVE PULMONARY DISEASE W (ACUTE) EXACERBATION SNOMED Code(s): 049881843298925 Comment: - completed levaquin for HAP - prednisone 30mg qd, taper on discharge - c/w nebs, incentive spirometry - c/w FiO2 taper as tolerated - OOB to chair, ambulate as tolerated (2) Anxiety Current Visit: Yes Status: Acute Priority: High Code(s): F41.9 - ANXIETY DISORDER, UNSPECIFIED SNOMED Code(s): 43440855 Comment: - stable today. - s/p Psych consult this admission. - continue fluoxetine 60 mg (3) Diastolic CHF Current Visit: Yes Status: Acute Code(s): I50.30 - UNSPECIFIED DIASTOLIC ( CONGESTIVE) HEART FAILURE SNOMED Code(s): 663088766 Comment: Pt is on Lasix PO 3x/week at home. Restarted 11/07. (4) Essential thrombocythemia Current Visit: Yes Status: Acute Priority: High Code(s): D47.3 - ESSENTIAL (HEMORRHAGIC) THROMBOCYTHEMIA SNOMED Code(s): 057210827 Comment: Leucocytosis and thrombocytosis improving after hydrea increased Heme f/u appreciated c/w Xarelto Discontinue ASA given latest recs from both heme/onc and cardiology. (5) Pseudomonas pneumonia Current Visit: Yes Status: Acute Priority: High Comment: - Completed 10 days Levofloxacin 11/14 - Continue other respiratory therapies (6) Atrial fibrillation Current Visit: Yes Status: Chronic Priority: High Code(s): I48.91 - UNSPECIFIED ATRIAL FIBRILLATION SNOMED Code(s): 19379388 Comment: - Rivaroxaban 20 mg - Diltiazem 360 mg PO Daily; - Atenolol 20 mg PO daily. - digoxin level up to 1.7. Will decrease back down to 0.125 mg daily. - digoxin level tomorrow (7) Chronic respiratory failure Current Visit: Yes Status: Chronic Code(s): J96.10 - CHRONIC RESPIRATORY FAILURE, UNSP W HYPOXIA OR HYPERCAPNIA SNOMED Code(s): 44700584 Comment: - Acute on chronic hypoxic respitatory failure, increased O2 needs intermittently - Continue supplemental O2. - Secondary to COPD - O2 and steroid dependent (5 mg prednisone at baseline) Status and Disposition: Inpatient. Likely to [facility] SNF on 11/19 or 11/20.
[2017-11-18] MEDS: Digoxin TAB* 0.125 MG PO SCH (17:44)
[2017-11-18] MEDS: Atorvastatin* 10 MG TAB PO SCH (19:12)
[2017-11-18] MEDS: Montelukast Sodium TAB* 10 MG PO SCH (19:12)
[2017-11-19] MEDS: Levothyroxine TAB* 112 MCG TAB PO SCH (05:16)
[2017-11-19] MEDS: Clotrimazole TROCHE* 10 MG TROCHE PO SCH ×5 (05:16→21:24)
[2017-11-19] MEDS: Tiotropium CAP.INH* CAP.INH/18 MCG (USE ORDER SET !) INH SCH (07:41)
[2017-11-19] MEDS: Albuterol/Ipratropium NEB.SOL* Albuterol 2.5 MG/Ipratropium 0.5 MG 3 ML INH PRN ×2 (07:41→20:24)
[2017-11-19] MEDS: Mometasone/Formoter 200/5 MDI INH SCH ×2 (07:41→20:24)
[2017-11-19] MEDS: Furosemide TAB* 20 MG PO SCH (08:37)
[2017-11-19] MEDS: HydroxyUREA CAP* 500 MG CAP PO SCH (08:37)
[2017-11-19] MEDS: Fluticasone NASAL SPRAY 50MCG* 16 gm SPRAY BTL BOTH NARES SCH (08:37)
[2017-11-19] MEDS: Atenolol TAB* 25 MG PO SCH (08:38)
[2017-11-19] MEDS: Diltiazem CD CAP* 180 MG PO SCH (08:38)
[2017-11-19] MEDS: Rivaroxaban TAB(*) 20 MG TAB PO SCH (08:38)
[2017-11-19] MEDS: Omeprazole CAP* 20 MG PO SCH (08:38)
[2017-11-19] MEDS: Multivitamins/Minerals TAB PO SCH (08:38)
[2017-11-19] MEDS: predniSONE TAB* 10 MG PO SCH (08:38)
[2017-11-19] MEDS: Cyanocobalamin TAB* 500 MCG PO SCH (08:38)
[2017-11-19] MEDS: Cetirizine* 10 MG TAB PO SCH (08:38)
[2017-11-19] MEDS: Lisinopril TAB* 10 MG PO SCH (08:38)
[2017-11-19] MEDS: Cholecalciferol TAB* 1000 UNITS PO SCH (08:39)
[2017-11-19] MEDS: Magnesium Oxide TAB* 400 MG PO SCH (08:39)
[2017-11-19] MEDS: FLUoxetine CAP* 20 MG PO SCH (08:39)
[2017-11-19] MEDS: guaiFENesin ER TAB 600 MG PO SCH ×2 (08:39→21:24)
[2017-11-19 08:55] LABS: Hematocrit 29 % (35-47); Hemoglobin 9.1 g/dl (12.0-16.0); Mean Corpuscular HGB Conc 32 g/dl (31-36); Mean Corpuscular Hemoglobin 35 pg (27-31); Mean Corpuscular Volume 110 fL (80-97); Mean Platelet Volume 11.7 um3 (7.4-10.4); Platelet Count 553 10^3/ul (150-450); Red Blood Count 2.61 10^6/ul (4.00-5.40); Red Cell Distribution Width 24 % (10.5-15); White Blood Count 18.6 10^3/ul (3.5-10.8)
[2017-11-19] MEDS ORDERED: Furosemide TAB* 20 MG PO SCH (09:00)
[2017-11-19 10:37] LABS: ABS Basophils 0.1 10^3/ul (0-0.2); ABS Eosinophils 0 10^3/ul (0-0.6); ABS Monocytes 0.3 10^3/ul (0-0.8); ABS Neutrophils 4.3 10^3/ul (1.5-7.7); ABS Nucleated RBC 0 10^3/ul; Eosinophil % 0.1 % (0-6); Nucleated Red Blood Cells % 0.1
--- NOTE | 2017-11-19 11:38 | PN ---
Progress Note - Progress Note Date of Service: 11/19/17 SOAP: Subjective: []More SOB this AM, but admits she is feeling a little overwhelmed. Increased activity with exercises for strengthening and potential discharge today caused some anxiety. Had ativan while in ICU but has not recently, nursing discussed with attending team already. Medications: Acetaminophen (Tylenol Tab*) 650 mg PO Q6H PRN PRN Reason: FEVER/PAIN Last Admin: 11/10/17 09:46 Dose: 650 mg Albuterol/Ipratropium (Duoneb (Albuterol 2.5 Mg/Ipratropium 0.5 Mg)) 1 neb INH Q6H PRN PRN Reason: SOB/WHEEZING Last Admin: 11/19/17 07:41 Dose: 1 neb Atenolol (Tenormin Tab*) 25 mg PO DAILY [facility] Last Admin: 11/19/17 08:38 Dose: 25 mg Atorvastatin Calcium (Lipitor*) 10 mg PO BEDTIME [facility] Last Admin: 11/18/17 19:12 Dose: 10 mg Cetirizine HCl (Zyrtec*) 10 mg PO DAILY [facility]; Protocol Last Admin: 11/19/17 08:38 Dose: 10 mg Cholecalciferol (Vitamin D Tab*) 1,000 units PO DAILY [facility] Last Admin: 11/19/17 08:39 Dose: 1,000 units Clotrimazole (Mycelex Michael*) 10 mg PO FIVE TIMES DAILY [facility] Last Admin: 11/19/17 08:38 Dose: 10 mg Cyanocobalamin (Vitamin B12 Tab*) 1,000 mcg PO EVERY OTHER DAY [facility] Last Admin: 11/19/17 08:38 Dose: 1,000 mcg Device (Tiotropium Inhaler Device*) 1 each INH .USE w/ SPIRIVA CAPS [facility] Digoxin (Lanoxin Tab*) 0.125 mg PO 1700 [facility] Last Admin: 11/18/17 17:44 Dose: 0.125 mg Diltiazem HCl (Cardizem Cd Cap*) 360 mg PO DAILY [facility] Last Admin: 11/19/17 08:38 Dose: 360 mg Docusate Sodium (Colace Cap*) 100 mg PO BID PRN PRN Reason: CONSTIPATION Last Admin: 11/06/17 18:17 Dose: 100 mg Fluoxetine HCl (Prozac Cap*) 60 mg PO DAILY [facility] Last Admin: 11/19/17 08:39 Dose: 60 mg Fluticasone Propionate (Flonase Nasal [place] 50mcg*) 2 spray BOTH NARES DAILY [facility] Last Admin: 11/19/17 08:37 Dose: 2 spray Furosemide (Lasix Tab*) 20 mg PO MoWeFr@0900 [facility] Last Admin: 11/19/17 08:49 Dose: Not Given Guaifenesin (Mucinex*) 1,200 mg PO BID [facility] Last Admin: 11/19/17 08:39 Dose: 1,200 mg Hydroxyurea (Hydrea Cap*) 1,000 mg PO BID [facility] Last Admin: 11/19/17 08:37 Dose: 1,000 mg Levothyroxine Sodium (Synthroid Tab*) 112 mcg PO 0600 [facility] Last Admin: 11/19/17 05:16 Dose: 112 mcg Lisinopril (Prinivil Tab*) 40 mg PO DAILY [facility] Last Admin: 11/19/17 08:38 Dose: 40 mg Loperamide HCl (Imodium Cap*) 2 mg PO TID PRN PRN Reason: DIARRHEA Lorazepam (Ativan Tab(*)) 0.5 mg PO Q6H PRN PRN Reason: ANXIETY Magnesium Oxide (Magox 400 Tab*) 400 mg PO DAILY [facility] Last Admin: 11/19/17 08:39 Dose: 400 mg Mometasone Furoate/Formoterol Fumar (Dulera 200/5 Mdi*) 2 puff INH BID [facility]; Protocol Last Admin: 11/19/17 07:41 Dose: 2 puff Montelukast Sodium (Singulair Tab*) 10 mg PO BEDTIME [facility] Last Admin: 11/18/17 19:12 Dose: 10 mg Multivitamins/Minerals (Theragran/Minerals Tab*) 1 tab PO DAILY [facility] Last Admin: 11/19/17 08:38 Dose: 1 tab Omeprazole (Prilosec Cap*) 20 mg PO 0730 [facility] Last Admin: 11/19/17 08:38 Dose: 20 mg Ondansetron HCl (Zofran Inj*) 4 mg IV Q6H PRN PRN Reason: NAUSEA Prednisone (Deltasone Tab*) 30 mg PO DAILY [facility] Last Admin: 11/19/17 08:38 Dose: 30 mg Rivaroxaban (Xarelto(*)) 20 mg PO DAILY [facility] Last Admin: 11/19/17 08:38 Dose: 20 mg Tiotropium [place] (Spiriva Cap.Inh*) 1 cap INH DAILY [facility] Last Admin: 11/19/17 07:41 Dose: 1 cap.inh Objective: [] Vital Signs Temp Pulse Resp BP Pulse Ox 97.4 F 69 24 126/47 95 11/19/17 08:03 11/19/17 08:03 11/19/17 08:03 11/19/17 08:03 11/19/17 08:03 A&Ox3, EOMI, neuro grossly non-focal HRR, S1S2, SR rate controlled on tele LS with crackles to bases, resp. even and slightly labored, O2 via NC Laboratory Results - last 24 hr 11/18/17 11/19/17 05:44 08:44 WBC 20.1 H 18.6 H RBC 2.55 L 2.61 L Hgb 9.0 L 9.1 L Hct 28 L 29 L MCV 109 H 110 H MCH 35 H 35 H MCHC 32 32 RDW 24 H 24 H Plt Count 577 H D 553 H D MPV 11.6 H 11.7 H Neut % (Auto) 22.9 L Lymph % (Auto) 75.0 H [place] % (Auto) 1.5 Eos % (Auto) 0.1 Baso % (Auto) 0.5 Absolute Neuts (auto) 5.8 4.3 Absolute Lymphs (auto) 14.0 H Absolute Monos (auto) 0.3 Absolute Eos (auto) 0 Absolute Basos (auto) 0.1 Absolute Nucleated RBC 0 0 Neutrophils % 45 Lymphocytes % 55 H Monocytes % 0 Eosinophils % 0 Basophils % 0 Nucleated RBC % 0.1 Abs Neuts (Manual) 9.0 H Abs Lymphs (Manual) 11.1 H Abs Monocytes (Manual) 0 Absolute Eos (Manual) 0 Abs Basophils (Manual) 0 Giant Platelets Present Polychromasia Anisocytosis 1+ Assessment: []Complicated 77 yo female followed by hematology d/t ET, admitted with COPD exacerbation complicated by pseudomonas pneumonia. She has improved significantly over the last week and will be d/c'd to sub acute rehab in the near future. Plan: []1. ET: Decrease HU to 1500mg PO daily and f/u in 1 week with hem/onc team with labs, cont. Xarelto 2. Anemia: s/p IV iron, no PO for now. Consider transfusion hmg <9 d/t cardio- pulmonary disease 3. CLL on peripheral flow: discuss bone marrow biopsy as outpatient
--- NOTE | 2017-11-19 12:58 | PN ---
Subjective Date of Service: 11/19/17 Interval History: Patient seen and examined at bedside. Denies fever, chills, shortness of breath (not increased from baseline), chest discomfort, N/V/D. Pt is very anxious about possible discharge today and the unknown of rehab. Overall she is starting to feel much better and is looking forward to rehab and getting back home. Pt states that she has a wound to her left great toe from dropping an oxygen tank on it prior to admission, she states that she has been using ABX ointment. Tele: Sinus rhythm, rate 60-70's Family History: Unchanged from Admission Social History: Unchanged from Admission Past Medical History: Unchanged from Admission Objective Active Medications: Acetaminophen (Tylenol Tab*) 650 mg PO Q6H PRN Reason: FEVER/PAIN Albuterol/Ipratropium (Duoneb (Albuterol 2.5 Mg/Ipratropium 0.5 Mg)) 1 neb INH Q6H PRN Reason: SOB/WHEEZING Atenolol (Tenormin Tab*) 25 mg PO DAILY [facility] Atorvastatin Calcium (Lipitor*) 10 mg PO BEDTIME [facility] Cetirizine HCl (Zyrtec*) 10 mg PO DAILY [facility]; Protocol Cholecalciferol (Vitamin D Tab*) 1,000 units PO DAILY [facility] Clotrimazole (Mycelex Michael*) 10 mg PO FIVE TIMES DAILY [facility] Cyanocobalamin (Vitamin B12 Tab*) 1,000 mcg PO EVERY OTHER DAY [facility] Device (Tiotropium Inhaler Device*) 1 each INH .USE w/ SPIRIVA CAPS [facility]ON[facility] Digoxin (Lanoxin Tab*) 0.125 mg PO 1700 [facility] Diltiazem HCl (Cardizem Cd Cap*) 360 mg PO DAILY [facility] Docusate Sodium (Colace Cap*) 100 mg PO BID PRN Reason: CONSTIPATION Fluoxetine HCl (Prozac Cap*) 60 mg PO DAILY [facility] Fluticasone Propionate (Flonase Nasal [place] 50mcg*) 2 spray BOTH NARES DAILY [facility] Furosemide (Lasix Tab*) 20 mg PO MoWeFr@0900 [facility] Guaifenesin (Mucinex*) 1,200 mg PO BID [facility] Hydroxyurea (Hydrea Cap*) 1,500 mg PO DAILY [facility] Levothyroxine Sodium (Synthroid Tab*) 112 mcg PO 0600 [facility] Lisinopril (Prinivil Tab*) 40 mg PO DAILY [facility] Loperamide HCl (Imodium Cap*) 2 mg PO TID PRN Reason: DIARRHEA Lorazepam (Ativan Tab(*)) 0.5 mg PO Q6H PRN Reason: ANXIETY Magnesium Oxide (Magox 400 Tab*) 400 mg PO DAILY [facility] Mometasone Furoate/Formoterol Fumar (Dulera 200/5 Mdi*) 2 puff INH BID [facility]; Protocol Montelukast Sodium (Singulair Tab*) 10 mg PO BEDTIME [facility] Multivitamins/Minerals (Theragran/Minerals Tab*) 1 tab PO DAILY [facility] Omeprazole (Prilosec Cap*) 20 mg PO 0730 [facility] Ondansetron HCl (Zofran Inj*) 4 mg IV Q6H PRN Reason: NAUSEA Prednisone (Deltasone Tab*) 30 mg PO DAILY [facility] Rivaroxaban (Xarelto(*)) 20 mg PO DAILY [facility] Tiotropium [place] (Spiriva Cap.Inh*) 1 cap INH DAILY [facility] Vital Signs - 8 hr 11/19/17 11/19/17 11/19/17 07:48 08:00 08:03 Temperature 97.4 F Pulse Rate 64 69 Respiratory 14 18 24 Rate Blood Pressure 126/47 (mmHg) O2 Sat by Pulse 100 95 Oximetry Oxygen Devices in Use Now: Nasal Cannula - 3L Appearance: NAD, sitting up in a chair Ears/Nose/Mouth/Throat: Mucous Membranes Moist Respiratory: Symmetrical Chest Expansion and Respiratory Effort, Clear to Auscultation - , diminished Cardiovascular: NL Sounds; No Murmurs; No JVD, RRR Abdominal: NL Sounds; No Tenderness; No Distention Extremities: No Edema Neurological: Alert and Oriented x 3, NL Muscle Strength and Tone Nutrition: Taking PO's Result Diagrams: 11/19/17 08:44 11/16/17 06:12 Additional Lab and Data: . Microbiology and Other Data: Microbiology 11/06/17 10:36 Blood Venous Aerobic Blood Culture - Final No Growth Day 5 11/06/17 10:36 Blood Venous Anaerobic Blood Culture - Final No Growth Day 5 11/06/17 10:00 Sputum Gram Stain - Final 11/06/17 10:00 Sputum Sputum Culture - Final YEAST Pseudomonas Aeruginosa 10/28/17 10:40 Stool Stool Occult Blood (LISA) - Final 10/22/17 17:42 Blood Venous Aerobic Blood Culture - Final No Growth Day 5 10/22/17 17:42 Blood Venous Anaerobic Blood Culture - Final No Growth Day 5 10/22/17 17:42 Blood Venous Aerobic Blood Culture - Final No Growth Day 5 10/22/17 17:42 Blood Venous Anaerobic Blood Culture - Final No Growth Day 5 Assess/Plan/Problems-Billing ASSESSMENT: Ms Keita is a 77 yo F who has a h/o COPD w/ chronic hypoxic respiratory failure (on home oxygen), AF, HTN, hypothyroidism, HLD, anxiety disorder, and chronic leukocytosis and 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) who presented to the ER with c/o severe SOB and was admitted for a COPD exacerbation with stay c/b hospital acquired PNA and uncontrolled afib - Patient Problems (1) Pseudomonas pneumonia Comment: - Completed 10 days Levofloxacin 11/14 - Continue other respiratory therapies (2) COPD exacerbation Code(s): J44.1 - CHRONIC OBSTRUCTIVE PULMONARY DISEASE W (ACUTE) EXACERBATION SNOMED Code(s): 467105052132853 Comment: - Completed course of levaquin for HAP - Pulm consult, input appreciated - Continue prednisone 30mg qd (taper on discharge), nebs, incentive spirometry, FiO2 taper as tolerated (3) Chronic respiratory failure Code(s): J96.10 - CHRONIC RESPIRATORY FAILURE, UNSP W HYPOXIA OR HYPERCAPNIA SNOMED Code(s): 79244818 Comment: - Acute on chronic hypoxic respitatory failure, increased O2 needs intermittently - Continue supplemental O2, now back to baseline of 3 L - Secondary to COPD and PNA - O2 and steroid dependent (5 mg prednisone at baseline) (4) Anxiety Code(s): F41.9 - ANXIETY DISORDER, UNSPECIFIED SNOMED Code(s): 08676496 Comment: - Increased today, suspect secondary to discharge - s/p Psych consult this admission - Continue fluoxetine 60 mg and lorazaepam PRN (5) Diastolic CHF Code(s): I50.30 - UNSPECIFIED DIASTOLIC (CONGESTIVE) HEART FAILURE SNOMED Code (s): 066233249 Comment: - No signs of acute exacerbation at this time - Continue Lasix PO 3x/week at home, strict I+O's and daily weights (6) Anemia Code(s): D64.9 - ANEMIA, UNSPECIFIED SNOMED Code(s): 560173281 Comment: - Stable - Received 1 units PRBCs 10/25 - Hematology following - Continue hydrea (7) Essential thrombocythemia Code(s): D47.3 - ESSENTIAL (HEMORRHAGIC) THROMBOCYTHEMIA SNOMED Code(s): 745651226 Comment: - Leucocytosis and thrombocytosis improving after hydrea increased - Heme f/u appreciated - Continue Xarelto (8) Atrial fibrillation Code(s): I48.91 - UNSPECIFIED ATRIAL FIBRILLATION SNOMED Code(s): 38047042 Comment: - Rate controlled - Continue Rivaroxaban, Diltiazem, digoxin, and Atenolol - Check digoxin level in AM (9) History of pulmonary embolus (PE) Code(s): Z86.711 - PERSONAL HISTORY OF PULMONARY EMBOLISM SNOMED Code(s): 927537528 Comment: - Continue xarelto (10) Hyperlipidemia Code(s): E78.5 - HYPERLIPIDEMIA, UNSPECIFIED SNOMED Code(s): 32154626 Comment: - Continue lipitor. (11) HTN (hypertension) Code(s): I10 - ESSENTIAL (PRIMARY) HYPERTENSION SNOMED Code(s): 31044559 Comment: - Normotensive, SBP 100-100's - Continue atenolol, lisinopril, and lasix (12) Hypothyroid Code(s): E03.9 - HYPOTHYROIDISM, UNSPECIFIED SNOMED Code(s): 95141121 Comment: - TSH 1.43 on 07/03/17 - Continue synthroid (13) DVT prophylaxis Code(s): ZTW8166 - SNOMED Code(s): 567149924 Comment: - Xarelto (14) DNR (do not resuscitate) Status and Disposition: Inpatient. Likely to [facility] on 11/19 or 11/20.
[2017-11-19] MEDS: Digoxin TAB* 0.125 MG PO SCH (17:02)
[2017-11-19] MEDS: Bacitracin OINTMENT* 0.5% 0.5 oz TUBE TOPICAL SCH (17:32)
[2017-11-19] MEDS: Montelukast Sodium TAB* 10 MG PO SCH (21:24)
[2017-11-19] MEDS: LORazepam TAB(*) 0.5 MG PO PRN (21:24)
[2017-11-19] MEDS: Atorvastatin* 10 MG TAB PO SCH (21:24)
[2017-11-20] MEDS: Clotrimazole TROCHE* 10 MG TROCHE PO SCH ×2 (05:48→08:59)
[2017-11-20] MEDS: Levothyroxine TAB* 112 MCG TAB PO SCH (05:48)
[2017-11-20] MEDS: Tiotropium CAP.INH* CAP.INH/18 MCG (USE ORDER SET !) INH SCH (07:55)
[2017-11-20] MEDS: Mometasone/Formoter 200/5 MDI INH SCH (07:55)
[2017-11-20 08:24] VITALS: BP 144/48
[2017-11-20] MEDS: Omeprazole CAP* 20 MG PO SCH (08:30)
[2017-11-20] MEDS: Rivaroxaban TAB(*) 20 MG TAB PO SCH (08:30)
[2017-11-20] MEDS: Multivitamins/Minerals TAB PO SCH (08:30)
[2017-11-20] MEDS: Magnesium Oxide TAB* 400 MG PO SCH (08:31)
[2017-11-20] MEDS: Lisinopril TAB* 10 MG PO SCH (08:31)
[2017-11-20] MEDS: Diltiazem CD CAP* 180 MG PO SCH (08:31)
[2017-11-20] MEDS: Cetirizine* 10 MG TAB PO SCH (08:31)
[2017-11-20] MEDS: Cholecalciferol TAB* 1000 UNITS PO SCH (08:31)
[2017-11-20] MEDS: Atenolol TAB* 25 MG PO SCH (08:31)
[2017-11-20] MEDS: predniSONE TAB* 10 MG PO SCH (08:31)
[2017-11-20] MEDS: guaiFENesin ER TAB 600 MG PO SCH (08:31)
[2017-11-20] MEDS: FLUoxetine CAP* 20 MG PO SCH (08:31)
[2017-11-20] MEDS: Fluticasone NASAL SPRAY 50MCG* 16 gm SPRAY BTL BOTH NARES SCH (08:32)
[2017-11-20] MEDS: Bacitracin OINTMENT* 0.5% 0.5 oz TUBE TOPICAL SCH (08:59)
[2017-11-20] MEDS ORDERED: HydroxyUREA CAP* 500 MG CAP PO SCH (09:00)
--- NOTE | 2017-11-20 10:39 | PN ---
Progress Note - Progress Note Date of Service: 11/20/17 Note: Time spent on discharge, including review of EMR, exam and discussion with patient, preparation of discharge materials: 35 minutes.
[2017-11-20] MEDS: LORazepam TAB(*) 0.5 MG PO PRN (10:40)
[2017-11-20] MEDS: Albuterol/Ipratropium NEB.SOL* Albuterol 2.5 MG/Ipratropium 0.5 MG 3 ML INH PRN (10:57)
--- NOTE | 2017-11-20 11:17 | TRS ---
CC: Dr. Whitaker DATE OF ADMISSION: 10/23/2017. DATE OF TRANSFER: 11/20/2017. HISTORY: This 77-year-old woman presented with increased shortness of breath for two days. She has a long history of COPD, atrial fibrillation, CALR mutation with thrombocytosis and leukocytosis, and history of pulmonary embolism. The history is detailed in the admission note. She had a negative procalcitonin ; however, her sputum grew out pseudomonas. She was treated for possible pseudomonas pneumonia. She completed seven days of Levofloxacin. FINAL DIAGNOSES: 1. COPD. 2. Anemia. 3. Anxiety. 4. Diastolic CHF. 5. Essential thrombocythemia. 6. Atrial fibrillation. 7. History of PE. 8. Hypotension. 9. Hypothyroidism. 10. Hyperlipidemia. MEDICATIONS ON TRANSFER: 1. Clotrimazole Michael 10 mg five times daily. 2. Digoxin 0.125 mg daily at 5:00 p.m. 3. Diltiazem CD 360 mg daily. 4. Prednisone 30 mg daily to taper 5 mg every day until done. 5. Omeprazole 20 mg daily. 6. Fluoxetine 40 mg daily. 7. Atorvastatin 10 mg at bedtime. 8. Montelukast 10 mg at bedtime. 9. Levothyroxine 112 mcg daily. 10. Alendronate 70 mg daily. 11. Albuterol Ipratropium Respimat one puff t.i.d. prn. 12. Calcium with vitamin D3 one tablet daily. 13. Budesonide Formoterol 160/4.5 two puffs b.i.d. 14. Ipratropium nasal spray two sprays t.i.d. prn. 15. Furosemide 20 mg Sunday, Sunday, and Sunday. 16. Magnesium Oxide 400 mg daily. 17. Poly-iron 150 Forte one daily. 18. Vitamin B12 1,000 mcg every other day. 19. Albuterol 2.5 mg by nebulizer every 6 hours prn. 20. Rivaroxaban 20 mg daily. 21. Vitamin D 1,000 units daily. 22. Ipratropium 0.5 mg by inhalation t.i.d. prn. 23. Guaifenesin liquid 10 ml q.i.d. prn. 24. Docusate as prescribed. 25. Fluticasone nasal spray two sprays both nares daily. 26. Multivitamin with minerals daily. 27. Lorazepam as prescribed. 28. Tiotropium one capsule daily. 29. Atenolol 25 mg daily. 30. Loperamide 2 mg t.i.d. 31. Cetirizine 10 mg daily. 32. Albuterol inhaler two puffs every 4 hours prn. 33. Systane eye drops one drop both eyes q.i.d. prn. 34. Lisinopril 40 mg daily. 35. Acetaminophen 1,000 mg every 8 hours. 36. Hydroxyurea 1,500 mg daily. 37. Acetaminophen with Codeine #3 one b.i.d. [id number]/CPS #: [id number] [facility], [place]
== END 2017-11-20 13:24 | DRG 190 ==
LOC: ED 16:47 → MEDTELE 21:18 → OBSVTOIN 10-23 16:11 → ICU 10-24 08:46 → MEDTELE 10-25 21:24 → ICU 11-05 10:38 → MEDTELE 11-14 12:21
PROVIDERS: ADMIT Hospitalist; ATTEND Internal Medicine
PROC: 30233N1 Transfusion of Nonautologous Red Blood Cells into Peripheral Vein, Percutaneous Approach (ICD-10-PCS; principal; 2017-10-25)
DX: J44.1 Chronic obstructive pulmonary disease with (acute) exacerbation (principal); J15.1 Pneumonia due to Pseudomonas; J96.21 Acute and chronic respiratory failure with hypoxia; A41.9 Sepsis, unspecified organism; R65.20 Severe sepsis without septic shock; C94.6 Myelodysplastic disease, not elsewhere classified; I50.30 Unspecified diastolic (congestive) heart failure; I47.1 Supraventricular tachycardia; J44.0 Chronic obstructive pulmonary disease with (acute) lower respiratory infection; E03.9 Hypothyroidism, unspecified; E78.00 Pure hypercholesterolemia, unspecified; K21.9 Gastro-esophageal reflux disease without esophagitis; D47.3 Essential (hemorrhagic) thrombocythemia; F41.9 Anxiety disorder, unspecified; R33.8 Other retention of urine; Z66 Do not resuscitate; I48.0 Paroxysmal atrial fibrillation; I11.0 Hypertensive heart disease with heart failure; F32.9 Major depressive disorder, single episode, unspecified; D63.8 Anemia in other chronic diseases classified elsewhere; M19.90 Unspecified osteoarthritis, unspecified site; Z86.73 Personal history of transient ischemic attack (TIA), and cerebral infarction without residual deficits; Z98.51 Tubal ligation status; Z82.49 Family history of ischemic heart disease and other diseases of the circulatory system; Z86.711 Personal history of pulmonary embolism; Z99.81 Dependence on supplemental oxygen; Z98.42 Cataract extraction status, left eye; Z98.41 Cataract extraction status, right eye; Z88.1 Allergy status to other antibiotic agents; Z88.8 Allergy status to other drugs, medicaments and biological substances; Z91.018 Allergy to other foods; Z83.3 Family history of diabetes mellitus; Z80.6 Family history of leukemia; Z87.891 Personal history of nicotine dependence; Z82.3 Family history of stroke; Z81.1 Family history of alcohol abuse and dependence
CPT/HCPCS: 36415; 71045; 71046; 71250; 80048; 80053; 80162; 80202; 81003; 82272; 82550; 82668; 82784; 83605; 83735; 83880; 84145; 84155; 84165; 84238; 84484; 85025; 85027; 85045; 85060; 85610; 85652; 85730; 86140; 86850; 86900; 86901; 86922; 87040; 87070; 87077; 87186; 87205; 88184; 88185; 88187; 88188; 88189; 93005; 94640; 94667; 94668; 99231; 99232; 99233; 99285; A9270-GY; G8978-GP-CJ; G8979-GP-CI; G8979-GP-CJ; G8980-GP-CJ; J0360; J0696; J1160; J1940; J2270; J2543; J2916; J2920; J2930; J3370; J3475; J3480; J7512; P9040

== ENCOUNTER 2017-11-27 07:44 | Emergency (ER) | payer MEDICARE ==
--- NOTE | 2017-11-27 07:59 | ED ---
Respiratory - HPI Summary HPI Summary: This is [facility] documenting for attending Emerson Mcmillan MD. Pt is a 77 y/o F c/o respiratory distress and SOB upon sudden waking. Assoc Sx: SOB. Denies: CP. PMHx: Blood thinners (Xarelto). She notes that she was in the hospital for 31 days receiving treatment for PNA. Per EMS, patient unable to speak on their arrival, room air sats in the 80s, normally on 3L- Given one duoneb and dexamethasone by EMS with signifigant improvement reported. - History of Current Complaint Chief Complaint: EDRespiratoryDistress Stated Complaint: SOB Time Seen by Provider: 11/27/17 07:48 Hx Obtained From: Patient, EMS Onset/Duration: Sudden Onset, Lasting Hours Current Severity: None Pain Intensity: 0 Character: Dyspnea at Rest, Dyspnea on Exertion Alleviating Factor(s): Other - duoneb, dexamethasone Associated Signs and Symptoms: Negative - CP, SOB - Allergy/Home Medications Allergies/Adverse Reactions: Allergies Allergy/AdvReac Type Severity Reaction Status Date / Time amlodipine [From Norvasc] Allergy See Comment Verified 10/22/17 17:02 azithromycin [From Zithromax] Allergy Diarrhea Verified 10/22/17 17:02 clarithromycin [From Biaxin] Allergy Hives Verified 10/22/17 17:02 garlic Allergy Diarrhea Verified 10/22/17 17:02 Home Medications: Home Medications 2-Eloy Supplement 60 ml PO QID ACHS 11/27/17 [History Confirmed 11/27/17] Acetaminophen [Acetaminophen Extra Strength] 500 mg PO Q8H PRN 11/27/17 [ History Confirmed 11/27/17] Acetaminophen with Codeine [Acetaminophen-Cod #3 Tablet] 1 tab PO BID 11/27/17 [ History Confirmed 11/27/17] Albuterol 2.5MG/3ML (0.083%)* [Ventolin 2.5 MG/3 ML NEB.GAVIN*] 2.5 mg INH Q6H PRN 11/27/17 [History Confirmed 11/27/17] Albuterol HFA INHALER* [Ventolin HFA Inhaler*] 2 puff INH Q4H PRN 11/27/17 [ History Confirmed 11/27/17] Albuterol/Ipratropium RESP(NF) [Combivent Respimat (NF)] 1 aer IN TID PRN [History Confirmed 11/27/17] Alendronate (NF) [Fosamax (NF)] 70 mg PO WEEKLY 11/27/17 [History Confirmed ] Atenolol TAB* [Tenormin TAB* 25 MG] 25 mg PO DAILY 11/27/17 [History Confirmed 11/27/17] Atorvastatin* [Lipitor 10 MG*] 10 mg PO DAILY 11/27/17 [History Confirmed ] Budesonide/Formote 160/4.5(NF) [Symbicort 160/4.5 (NF)] 2 puff INH BID 11/27/17 [History Confirmed 11/27/17] Calcium Carbonate/Vitamin D3 [Calcium 600 + Vit D Tablet] 1 each PO DAILY [History Confirmed 11/27/17] Cetirizine* [ZyrTEC 10 MG TAB*] 10 mg PO DAILY 11/27/17 [History Confirmed 11/27] Cholecalciferol TAB* [Vitamin D TAB*] 1,000 unit PO DAILY 11/27/17 [History Confirmed 11/27/17] Clotrimazole JOVITA* [Mycelex Jovita*] 10 mg MT TID 11/27/17 [History Confirmed 11/27/17] Collagenase 250 MG/GM OINT* [Santyl 250 mg/gm Oint*] 1 applic TOPICAL DAILY [History Confirmed 11/27/17] Cyanocobalamin TAB* [Vitamin B12 TAB*] 1,000 mcg PO EVERY OTHER DAY 11/27/17 [ History Confirmed 11/27/17] Digoxin TAB* [Lanoxin TAB*] 0.125 mg PO DAILY 11/27/17 [History Confirmed ] Diltiazem CD CAP* [Cardizem CD CAP*] 360 mg PO DAILY 11/27/17 [History Confirmed 11/27/17] Docusate CAP* [Colace Cap*] 200 mg PO DAILY PRN 11/27/17 [History Confirmed ] FLUoxetine CAP* [Prozac CAP*] 40 mg PO DAILY 11/27/17 [History Confirmed ] Fluticasone NASAL SPRAY 50MCG* [Flonase NASAL SPRAY 50MCG*] 2 spray BOTH NARES DAILY 11/27/17 [History Confirmed 11/27/17] Furosemide TAB* [Lasix TAB*] 20 mg PO MOWEFR 11/27/17 [History Confirmed ] HydroxyUREA CAP* [Hydrea CAP*] 1,500 mg PO DAILY 11/27/17 [History Confirmed ] Ipratropium 0.5MG/2.5ML NEB* [Atrovent 0.5 MG NEB.GAVIN*] 0.5 mg INH TID PRN 11/27 [History Confirmed 11/27/17] Ipratropium [place] 2 spray BOTH NARES TID 11/27/17 [History Confirmed 11/27/17] LORazepam TAB(*) [Ativan 0.5 MG TAB (*)] 0.25 mg PO BEDTIME PRN 11/27/17 [ History Confirmed 11/27/17] LORazepam TAB(*) [Ativan 0.5 MG TAB (*)] 0.25 mg PO Q6H PRN MDD 2 11/27/17 [ History Confirmed 11/27/17] Levothyroxine TAB* [Synthorid 112 MCG TAB*] 112 mcg PO DAILY 11/27/17 [History Confirmed 11/27/17] Lisinopril TAB* [Prinivil TAB 10 MG*] 40 mg PO DAILY 11/27/17 [History Confirmed 11/27/17] Loperamide CAP* [Imodium CAP*] 2 mg PO Q4H PRN 11/27/17 [History Confirmed 11/27] Magnesium Oxide TAB* [MagOx 400 TAB*] 400 mg PO DAILY 11/27/17 [History Confirmed 11/27/17] Montelukast Sodium TAB* [Singulair 10 MG TAB*] 10 mg PO DAILY 11/27/17 [History Confirmed 11/27/17] Multivitamins/Minerals TAB* [Theragran/minerals TAB*] 1 tab PO DAILY 11/27/17 [ History Confirmed 11/27/17] Omeprazole CAP* [Prilosec CAP* 20 MG] 20 mg PO DAILY 11/27/17 [History Confirmed 11/27/17] Propylene Glycol/Peg 400/Pf [Systane 0.3-0.4% Eye Drops] 1 drop BOTH EYES QID PRN 11/27/17 [History Confirmed 11/27/17] Rivaroxaban TAB(*) [Xarelto 20 mg] 20 mg PO DAILY 11/27/17 [History Confirmed ] Tiotropium CAP.INH* [Spiriva CAP.INH*] 1 cap.inh INH DAILY PRN 11/27/17 [ History Confirmed 11/27/17] guaiFENesin ER TAB [Mucinex*] 600 mg PO BID 11/27/17 [History Confirmed 11/27/17 ] guaiFENesin LIQ* [Robitussin*] 10 ml PO QID PRN 11/27/17 [History Confirmed ] PMH/Surg Hx/FS Hx/Imm Hx Endocrine/Hematology History: Reports: Hx Anticoagulant Therapy - coumadin, Hx Blood Disorders - myeloproliferative disorder , Hx Thyroid Disease - HYPOTHYROIDISM, Hx Anemia - PERNICIOUS ANEMIA, Other Endocrine/Hematological Disorders - 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 Denies: Hx Blood Transfusions, Hx Bone Marrow Disease, Hx Diabetes, Hx Systemic Lupus Erythematosus, Hx Unexplained Bleeding Cardiovascular History: Reports: Hx Atrial Fibrillation, Hx Hypercholesterolemia , Hx Hypertension, Other Cardiovascular Problems/Disorders - A FIB Denies: Hx Pacemaker/ICD Respiratory History: Reports: Hx Asthma, Hx Chronic Bronchitis, Hx Chronic Obstructive Pulmonary Disease (COPD) - ON HOME O2-3L, Hx Pneumonia, Hx Pulmonary Embolism, Other Respiratory Problems/Disorders - PT STATES SHE HAS A HX OF A BLOOD CLOT GI History: Reports: Hx Gastroesophageal Reflux Disease, Other GI Disorders - gastroenteritis History: Denies: Hx Dialysis, Hx Renal Disease Musculoskeletal History: Reports: Hx Arthritis - OA, Other Musculoskeletal History - osteo-arthritis Sensory History: Denies: Hx Cataracts - bilaterally removed, Hx Contacts or Glasses, Hx Hearing Aid Opthamlomology History: Denies: Hx Cataracts - bilaterally removed, Hx Contacts or Glasses Neurological History: Reports: Hx Transient Ischemic Attacks (TIA) Denies: Hx Dementia, Hx Seizures Psychiatric History: Reports: Hx Anxiety, Hx Depression, Other Psychiatric Issues/Disorders - takes prozac to deter from smoking Denies: Hx Panic Disorder, Hx Substance Abuse - Cancer History Cancer Type, Location and Year: pre-cancerous lesion on face. myeloproliferative disorder Hx Chemotherapy: Yes Hx Radiation Therapy: No - Surgical History Surgery Procedure, Year, and Place: Tubal ligation, pt states 31 years ago. Oral surgery, pt states when she was a teenager. CATARACT SURGERY Hx Anesthesia Reactions: No - difficulty reversing or "waking up." - Immunization History Date of Tetanus Vaccine: Unk Date of Influenza Vaccine: Fall 2013 Infectious Disease History: No Infectious Disease History: Denies: Hx Clostridium Difficile, Hx Hepatitis, Hx Human Immunodeficiency Virus (HIV), Hx of Known/Suspected MRSA, Hx Shingles, Hx Tuberculosis, Traveled Outside the [place] in Last 30 Days - Family History Known Family History: Positive: Cardiac Disease - CAD (father), Hypertension, Diabetes, Other - Leukemia (mother), CVA (father) - Social History Occupation: Retired Lives: With Family Alcohol Use: None Hx Substance Use: No Substance Use Type: Reports: None Hx Tobacco Use: Yes Smoking Status (MU): Former Smoker Type: Cigarettes Have You Smoked in the Last Year: No Review of Systems Negative: Chest Pain Positive: Shortness Of Breath All Other Systems Reviewed And Are Negative: Yes Physical Exam - Summary Physical Exam Summary: Constitutional: Well-developed, Well-nourished, Alert. (-) Distressed Skin: Warm, Dry HENT: Normocephalic; Atraumatic Eyes: Conjunctiva normal Neck: Musculoskeletal ROM normal neck. (-) JVD, (-) Stridor, (-) Tracheal deviation Cardio: Rhythm regular, rate normal, Heart sounds normal; Intact distal pulses; The pedal pulses are 2+ and symmetric. Radial pulses are 2+ and symmetric. (-) Murmur Pulmonary/Chest wall: Effort normal. (-) Respiratory distress, (-) Wheezes, Rales in R lower lung Abd: Soft, (-), epigastric tenderness, (-) Distension, (-) Guarding, (-) Rebound Musculoskeletal: (-) Edema Lymph: (-) Cervical adenopathy Neuro: Alert, Oriented x3 Psych: Mood and affect Normal Triage Information Reviewed: Yes Vital Signs On Initial Exam: Initial Vitals Temp Pulse Resp BP Pulse Ox 99.7 F 95 26 130/50 89 11/27/17 07:45 11/27/17 07:45 11/27/17 07:45 11/27/17 07:45 11/27/17 07:45 Vital Signs Reviewed: Yes Diagnostics - Vital Signs Vital Signs Temp Pulse Resp BP Pulse Ox 07/24/18 07:45 99.7 F 95 26 130/50 89 - Laboratory Result Diagrams: 11/27/17 08:34 11/27/17 08:34 Lab Statement: Any lab studies that have been ordered have been reviewed, and results considered in the medical decision making process. - Radiology CXR Xray Interpretation: Positive (See Comments) - IMPRESSION: HYPERINFLATION WITH STABLE CHRONIC INTERSTITIAL CHANGES. IMPROVED AERATION OF THE LUNG BASES. Radiology Interpretation Completed By: Radiologist - Report has been reviewed by Provider - CT Chest/Thorax CT Interpretation: Positive (See Comments) - IMPRESSION: 1. NO PULMONARY ARTERIAL FILLING DEFECT TO SUGGEST PULMONARY EMBOLISM. 2. ATHEROSCLEROSIS. 3. BRONCHIECTASIS WITH MUCUS PLUGGING. 4. EMPHYSEMA CT Interpretation Completed By: Radiologist - Report has been reviewed by provider. - EKG 0805 Cardiac Rate: NL - V-rate: 60- 99 EKG Rhythm: Sinus Rhythm ST Segment: Non-Specific EKG Interpretation: Sinus rhythm.normal P axis, V-rate 60- 99 Atrial premature complex.SV comp Re-Evaluation - Re-Evaluation First Eval Re-Evaluation Time: 10:40 Change: Improved Comment: Pt is feeling much better. Disposition - Course Course Of Treatment: Prednisone discontinuation noted. - Differential Dx - Cardiopulmonary Differential Diagnoses - Cardiopulmonary: Exacerbation Of COPD - Diagnoses Provider Diagnoses: COPD exacerbation Discharge - Sign-Out/Discharge Documenting (check all that apply): Patient Departure - Discharge Plan Condition: Stable Disposition: INTERMEDIATE CARE FACILITY Prescriptions: Albuterol 2.5MG/3ML (0.083%)* [Ventolin 2.5 MG/3 ML NEB.GAVIN*] 2.5 mg INH Q4H # 60 neb.gavin DOXYcycline CAP(*) [DOXYcycline 100MG CAP(*)] 100 mg PO BID #10 cap Levofloxacin TAB* [Levaquin 750 MG TAB*] 750 mg PO DAILY #5 tab predniSONE TAB* [Deltasone 20 MG TAB*] 40 mg PO DAILY #5 tab Patient Education Materials: COPD (Chronic Obstructive Pulmonary Disease) (ED) Referrals: Kim Whitaker MD [Primary Care Provider] - Additional Instructions: RETURN TO THE EMERGENCY DEPARTMENT FOR CHANGING OR WORSENING SYMPTOMS - Billing Disposition and Condition Condition: STABLE Disposition: Intermediate Care Facility
[2017-11-27] MEDS ORDERED: Albuterol/Ipratropium NEB.SOL* Albuterol 2.5 MG/Ipratropium 0.5 MG 3 ML INH ONE ×2 (08:04→10:33)
[2017-11-27] MEDS ORDERED: methylPREDNISolone 125 MG* 2 ML VIAL IV ONE (08:04)
--- NOTE | 2017-11-27 08:44 | RAD ---
HISTORY: respiratory distress COMPARISONS: November 07, 2017 VIEWS: 1: frontal portable view of the chest at 8:25 AM FINDINGS: LINES AND TUBES: None. CARDIOMEDIASTINAL SILHOUETTE: The cardiomediastinal silhouette is normal for portable technique. PLEURA: The costophrenic angles are sharp. No pleural abnormalities are noted. LUNG PARENCHYMA: There is a diffuse coarse pattern of reticular opacification. There has been improved aeration of the lower lungs bilaterally. There is hyperinflation. ABDOMEN: The upper abdomen is clear. There is no subphrenic gas. BONES AND SOFT TISSUES: No bone or soft tissue abnormalities are noted. IMPRESSION: HYPERINFLATION WITH STABLE CHRONIC INTERSTITIAL CHANGES. IMPROVED AERATION OF THE LUNG BASES.
[2017-11-27 09:02] LABS: Hematocrit 26 % (35-47); Hemoglobin 8.2 g/dl (12.0-16.0); Mean Corpuscular HGB Conc 31 g/dl (31-36); Mean Corpuscular Hemoglobin 35 pg (27-31); Mean Corpuscular Volume 112 fL (80-97); Mean Platelet Volume 10.9 um3 (7.4-10.4); Platelet Count 589 10^3/ul (150-450); Red Blood Count 2.36 10^6/ul (4.00-5.40); Red Cell Distribution Width 26 % (10.5-15); White Blood Count 23.2 10^3/ul (3.5-10.8)
[2017-11-27 09:09] LABS: EGFR Non-African American 51.1 (>60)
[2017-11-27 09:26] LABS: ABS Basophils 0 10^3/ul (0-0.2); ABS Neutrophils 13.4 10^3/ul (1.5-7.7); ABS Neutrophils 13.7 10^3/ul (1.5-7.7); Monocytes % 1 % (0-7)
[2017-11-27] MEDS ORDERED: Iodixanol* (CONTRAST) 320 MG/ML 100 ML SDV IV ONE (09:34)
--- NOTE | 2017-11-27 10:27 | RAD ---
HISTORY: SOB, HX PE COMPARISONS: October 31, 2017 TECHNIQUE: Multiple contiguous axial CT scans of the chest were obtained after the administration of nonionic intravenous contrast, timed to the pulmonary arterial phase of contrast enhancement.. Coronal and sagittal multiplanar reformations are also submitted for review. FINDINGS: NECK AND THYROID: The lower neck and thyroid are unremarkable. CHEST WALL: There is no lower cervical, axillary, or supraclavicular lymphadenopathy by size criteria. HEART AND PERICARDIUM: The heart is unremarkable. AORTA AND PULMONARY VASCULATURE: There is no pulmonary arterial filling defect to suggest pulmonary embolism. There is no linear filling defect within the aorta to suggest aortic dissection. There is atherosclerosis of the thoracic aorta. A defect on axial image 134 of 278 is felt to represent beam hardening artifact. MEDIASTINUM: There is no mediastinal lymphadenopathy by size criteria. PRETTY: There is no hilar lymphadenopathy by size criteria. AIRWAY AND ESOPHAGUS: There is bronchiectasis with a basilar predominance with peribronchial vascular thickening. LUNG PARENCHYMA: There is biapical centrilobular change. There is centrilobular nodularity mucous plugging of the lower lungs bilaterally. There has been improved aeration of the right middle lobe. PLEURA: No pleural abnormalities are noted. UPPER ABDOMEN: The upper abdomen is unremarkable. BONES AND SOFT TISSUES: No bone or soft tissue abnormalities are noted. OTHER: None. IMPRESSION: 1. NO PULMONARY ARTERIAL FILLING DEFECT TO SUGGEST PULMONARY EMBOLISM. 2. ATHEROSCLEROSIS. 3. BRONCHIECTASIS WITH MUCUS PLUGGING. 4. EMPHYSEMA
[2017-11-27] MEDS ORDERED: Levofloxacin TAB* 250 MG PO ONE (11:59)
[2017-11-27 14:37] VITALS: BP 115/54
== END 2017-11-27 12:17 ==
LOC: ED 07:44
DX: J44.1 Chronic obstructive pulmonary disease with (acute) exacerbation (principal); R06.02 Shortness of breath; Z87.891 Personal history of nicotine dependence
CPT/HCPCS: 36415; 71045; 71275; 80053; 82607; 82728; 83540; 83550; 83605; 84484; 85025; 85060; 87040; 93005; 96374; 99284; A9270-GY; Q9967